=== PATIENT | male | born 1970 | race Caucasian/White ===

== ENCOUNTER 2023-10-05 08:26 | Outpatient (OUT) | payer OTHER, SELFPAY ==
[2023-10-05 09:14] LABS: Estimated Average Glucose 114 mg/dL; Glycohemoglobin A1C 5.6 % (4.5-6.2)
[2023-10-05 09:21] LABS: Basophils Absolute Auto 0.1 10^3/uL (0.0-0.1); Eosinophils Absolute Auto 0.2 10^3/uL (0.0-0.7); Eosinophils Percent Auto 2.8 % (0.9-7.0); Hematocrit 39.6 % (42.0-54.0); Hemoglobin 12.7 g/dL (14.0-18.0); Immature Granulocytes Abs Auto 0.02 10^3/uL (0.00-0.03); Immature Granulocytes Pct Auto 0.3 % (0.0-0.5); Lymphocytes Absolute Auto 2.4 10^3/uL (1.2-3.8); Lymphocytes Percent Auto 35.2 % (20.5-60.0); Mean Corpuscular HGB Conc 32.1 g/dL (29.9-35.2); Mean Corpuscular Volume 96.6 fL (80.0-94.0); Mean Platelet Volume 10.5 fL (9.5-13.5); Monocytes Absolute Auto 0.6 10^3/uL (0.3-0.8); Monocytes Percent Auto 9.1 % (1.7-12.0); Neutrophils Absolute Auto 3.5 10^3/uL (1.4-6.5); Neutrophils Percent Auto 51.6 % (43.0-75.0); Platelet Count 198 10^3/uL (150-450); Red Cell Distribution Width 13.5 % (11.0-15.0); White Blood Count 6.9 10^3/uL (4.0-11.0)
[2023-10-05 09:29] LABS: Alanine Aminotransferase 24 U/L (16-63); Albumin Globulin Ratio 1.2; Albumin Level 3.7 g/dL (3.4-5.0); Alkaline Phosphatase 76 U/L (46-116); Anion Gap 13.1; Aspartate Amino Transferase 15 U/L (15-37); BUN Creatinine Ratio 25.8; Bilirubin Total 0.6 mg/dL (0.2-1.0); Calcium 8.7 mg/dL (8.5-10.1); Carbon Dioxide 27.9 mmol/L (21.0-32.0); Chloride 108 mmol/L (98-107); Cholesterol 166 mg/dL (<=200); Estimated GFR (African America >60 (>=60); Estimated GFR (Non-African Ame >60 (>=60); Free T3 1.76 pg/mL (2.18-3.98); Glucose 87 mg/dL (74-106); HDL Cholesterol 56 mg/dL (40-60); LDL Cholesterol Calculated 96.2 mg/dL; Sodium 145 mmol/L (136-145); Thyroid Stimulating Hormone 1.559 uIU/mL (0.358-3.740); Total Protein 6.7 g/dL (6.4-8.2); Triglycerides 69 mg/dL (<=150); VLDL CHOLESTEROL 13.8 mg/dL
[2023-10-05 10:52] LABS: Prostate Specific Antigen Scrn 0.79 ng/mL (<=4.00)
== END 2023-10-05 08:27 | disposition home or self-care (01) ==
LOC: LAB 08:30
PROVIDERS: PCP Family Medicine; Visit Provider Family Medicine
DX: Z00.00 Encounter for general adult medical examination without abnormal findings (principal); Z12.5 Encounter for screening for malignant neoplasm of prostate; Z12.12 Encounter for screening for malignant neoplasm of rectum; R73.09 Other abnormal glucose
CPT/HCPCS: 36415; 80053; 80061; 83036; 84436; 84443; 84481; 85025; G0103

== ENCOUNTER 2023-10-06 13:05 | Outpatient (REF) | payer OTHER, SELFPAY ==
[2023-10-06 15:24] LABS: Occult Blood Negative
== END 2023-10-06 13:06 | disposition home or self-care (01) ==
LOC: LAB 13:05
PROVIDERS: PCP Family Medicine; Visit Provider Family Medicine
DX: Z00.00 Encounter for general adult medical examination without abnormal findings (principal); Z12.5 Encounter for screening for malignant neoplasm of prostate; Z12.12 Encounter for screening for malignant neoplasm of rectum
CPT/HCPCS: G0328

== ENCOUNTER 2023-11-12 10:08 | Outpatient (OUT) | payer OTHER, SELFPAY ==
--- OUTSIDE RECORDS SUMMARY | 2023-11-12 10:22 | XMS_ITS | CCD ---
Author Organization [facility] Care Team Providers Care Circulation Director Name Role Phone Trino Cadet Unavailable SHARON, DR THOMPSON Admitting Unavailable HOY, DR THOMPSON Attending Unavailable HOY, DR THOMPSON Consulting Unavailable HOY, DR HTOMPSON Primary Care Unavailable HOY, DR THOMPSON Admitting Unavailable HOY, DR THOMPSON Attending Unavailable HOY, DR THOMPSON Consulting Unavailable AMEENAY, DR THOMPSON Primary Care Unavailable HOY, DR THOMPSON Primary Care Unavailable HOY, DR THOMPSON Admitting Unavailable HOY, DR THOMPSON Attending Unavailable HOY, DR THOMPSON Consulting Unavailable HOY, DR THOMPSON Primary Care Unavailable NOEL, DR RHONDA Weathers Attending Unavailabl aparna COHEN, DR RHONDA Weathers Admitting Unavailabl e CHIQUITA ULLOA Consulting Unavailable TRISTA SUTHERLAND Consulting Unavailable MD Donna Herrera Primary Care Provider [phone] MD Trino Cadet Attending Provider Donna Herrera MD Primary Care Provider [phone] FITZ CARRASQUILLO Attending Unavailable AMEENAY, DONNA M Referring Unavailable HOY, DONNA M Primary Care Unavailable XU TROY Attending Unavailable HOY, DONNA M Referring Unavailable HOY, DONNA M Primary Care Unavailable XU TROY Attending Unavailable XU TROY Referring Unavailable HOY, DONNA M Primary Care Unavailable CHARLES LAMA Referring Unavailable HOY, DONNA M Primary Care Unavailable DARRELL OLSEN Admitting Unavailable DARRELL OLSEN Attending Unavailable HOY, DONNA M Primary Care Unavailable JIM COPELAND Consulting Unavailable HOY, DONNA M Primary Care Unavailable LAMA, CHARLES Referring Unavailable HOY, DONNA M Primary Care Unavailable DARRELL OLSEN Attending Unavailable DARRELL OLSEN Referring Unavailable HOY, DONNA M Primary Care Unavailable MARVA AGUAYO Referring Unavailable DONNA HERRERA Primary Care Unavailable CHARLES LAMA Referring Unavailable DONNA HERRERA Primary Care Unavailable DARRELL OLSEN Referring Unavailable DONNA HERRERA M Primary Care Unavailable MD Donna Herrera Primary Care Provider [phone] MD Qasim Mancilla Admit Provider MD Qasim Mancilla Attending Provider [phone] CORNELL Quinones Other Provider Unavailable CORNELL Givens Other Provider Unavailable CORNELL Kraft Other Provider Unavailable CORNELL Mcintosh Other Provider Unavailable CORNELL Giron Other Provider Unavailable CORNLEL Hatfield Other Provider Unavailable CORNELL Bunn Other Provider Unavailable MD Lena Tejeda Other Provider MD Virgilio Ley Other Provider Unavailable Angelicas, INSURANCE ACCOUNT REPRESENTATIVE Kathy Blanchard Other Provider DO Michelle Echols Other Provider [phone] MD Oswaldo Washington Other Provider [phone] DO Bhavik Hull Other Provider MD Prosper Fry Other Provider MD Evelyn Medina Other Provider MD Marcell Green Other Provider Unavailable PIPO Lentz Other Provider MD Mary Bowen Other Provider MD Tavon Zarco Other Provider MD Jorge Lopez Other Provider MD Sanjana Cortes Other Provider DO Michel Fuchs Other Provider MD Emil Magana Other Provider MD Tong Varma Other Provider BILLY Feldman Other Provider PIPO Houser M Other Provider Unavailable MD Rajat Silvestre Other Provider MD John Krishna Other Provider MD Tod Curry Other Provider MD Maximus Arce Other Provider Unavailable MD Tha Otto Other Provider DO Swathi Jones Other Provider DO Ricky Guzman Other Provider DO Juan C Santiago Other Provider PIPO Franco Other Provider DO Vito Azar Other Provider [phone] MD Khloe Silva M Other Provider [phone] PIPO Ruff Other Provider PIPO Barba Other Provider MD Janessa Negrete Other Provider MD Avi Khan Other Provider [phone] DO Los Constantino Other Provider [phone] DO Keaton Reyes Other Provider MD Antoinette Adam P Other Provider CORNELL Bauer Other Provider Unavailable DARRELL OLSEN Attending Unavailable HOY, DONNA M Referring Unavailable HOY, DONNA M Primary Care Unavailable XU TROY Referring Unavailable HOY, DONNA M Primary Care Unavailable CHARLES LAMA Attending Unavailable HOY, DONNA M Referring Unavailable HOY, DONNA M Primary Care Unavailable CHARLES LAMA Attending Unavailable Qasim Mancilla Admitting Unavaila Qasim Ochoa Attending Unavaila ble Hoy, Donna M Primary Care Unavailable Yasmeen Quinones Consulting Unavailable Flores Givens Consulting Unavailable Ariela Kraft Consulting Unavailable Alyce Mcintosh Consulting Unavailable Berkley Giron Consulting Unavailable Jennifer Hatfield Consulting Unavailable Perla Bunn Consulting Unavailable Lena Tejeda Consulting Unavailable JilVirgilio interiano Consulting Unavailable Kathy Loya Consulting Unavailable Michelle Echols Consulting Unavailable Oswaldo Washington Consulting Unavailable Bhavik Hull Consulting UnavailProsper Tejada Consulting Unavailable Evelyn Medina Consulting Unavailable Marcell Green Consulting Unavailable Kathe Lentz Consulting UnavailMary Pinzon Consulting Unavailable Tavon Zarco Consulting Unavailable Jorge Lopez Consulting Unavailable Sanjana Cortes Consulting Unavailable Michel Fuchs Consulting Unavailable Emil Magana Consulting Unavailable Tong Varma Consulting Unavailable Rhiannon Feldman Consulting Unavailable Avelina Houser Consulting Unavailable Rajat Silvestre Consulting UnavailJohn Barker Consulting Unavailable Tod Curry Consulting Unavailable Maximus Arce Consulting Unavailable Tha Otto Consulting Unavailable Swathi Jones Consulting Unavailable Ricky Guzman Consulting Unavailable Juan C Santiago Consulting Unavailable ObGina justice Consulting Unavailable Vito Azar Consulting Unavailable DaromarCharlesaymichelle Blanchard Consulting Unavailable Sabi Ruff Consulting Unavailable Adilene Barba Consulting Unavailable Janessa Negrete Consulting Unavailable Avi Khan Consulting Unavailable Los Constantino Consulting Unavailable Keaton Reyes Consulting Unavailable Adam Curry Consulting Unavailable Alisa Bauer Consulting Unavailable Trino Cadet Admitting Unavailable Trino Cadet Attending Unavailable Donna Herrera Primary Care Unavailable Michel ROBBINS Attending Unavailable Donna Herrera Referring Unavailable Allergies Allergy Classification Reported Allergen(s) Allergy Type Date of Onset Reaction(s) Facility (1 source) No Known Medication Allergies; Translations: [No Known Medication Allergies] Propensity to adverse reactions (disorder) [facility] Repository Medications Current Medications Medication Drug Class(es) Dates Sig (Normalized) Sig (Original) [id number] 200 actuat albuterol 0.09 mg/actuat metered dose inhaler (4 sources) beta2-Adrenergic Agonist Start: 10-29-2023 take 1 puff(s) by inhalation every four hours Albuterol Sulfate (Ventolin Hfa) 90 mcg/actuation Hfa Aerosol Inhaler Active 2 PUFF INHALATION Every 4 hours 6.7 October 29, 2023 12:00am Start: 10-27-2023 End: 10-29-2023 Albuterol Sulfate (Proair Hf a) 90 mcg/actuation HFA aerosol inhaler Discontinued 2 INH INHALATION Every 4 hours October 27, 2023 12:00am October 29, 2023 9:45am Start: 10-04-2023 take 2 puff(s) by in halation every four hours as needed VENTOLIN HFA 90 mcg/actuation inhaler Inhale 2 puffs every 4 (four) hours as needed. 0 10/04/2023 Active aspirin 81 mg delayed release oral tablet (13 sources) Platelet Aggregation Inhibitor, Nonsteroidal Anti-inflammatory Drug Start: 05-22-2020 End: 10-29-2023 take 81 mg by mouth once daily at bedtime Aspirin Active 81 MG PO Daily at bedtime 30 October 29, 2023 12:00am take 1 tablet by mouth once trell y Aspirin 81 81 MG 1 tablet Orally Once a day Active take 1 tablet by mouth once trell y Aspirin 81 81 MG 1 tablet Orally Once a day Active 120 actuat budesonide 0.16 mg/actuat / formoterol fumarate 0.0045 mg/actuat metered dose inhaler (13 sources) Corticosteroid, beta2-Adrenergic Agonist Start: 10-29-2023 take 1 puff(s) by inhalation twice daily Budesonide-Formoterol (Symbicort) 160-4.5 mcg/actuation Hfa Aerosol Inhaler Active 2 PUFF INHALATION Twice daily 10.2 October 29, 2023 12:00am Start: 05-22-2020 End: 10-29-2023 Budesonide-Formoterol (Symbi skyler) 160-4.5 mcg/actuation Hfa Aerosol Inhaler Discontinued 2 INH INHALATION Twice daily May 22, 2020 12:00am October 29, 2023 9:45am Start: 04-19-2019 take 2 puff(s) by in halation in the morning SYMBICORT 160-4.5 mcg/actuation inhaler Inhale 2 puffs in the morning and 2 puffs before bedtime. 1 04/19/2019 Active take 2 puff(s) by mo uth twice daily Symbicort 160-4.5 MCG/ACT INHALE 2 PUFFS BY MOUTH TWICE DAILY Inhalation for 30 Active cyclobenzaprine hydrochloride 5 mg oral tablet (4 sources) Muscle Relaxant Start: 10-29-2023 take 5 mg by mouth three times daily Cyclobenzaprine Active 5 MG PO Three times daily 30 October 29, 2023 12:00am Start: 10-27-2023 End: 10-29-2023 take 5 mg by mouth three times daily Cyclobenzaprine Discontinued 5 MG PO Three times daily October 27, 2023 12:00am October 29, 2023 9:45am Start: 05-31-2020 End: 10-27-2023 take 10 mg by mouth three times daily Cyclobenzaprine Discontinued 10 MG PO Three times daily May 31, 2020 12:00am October 27, 2023 3:03pm dexamethasone 2 mg oral tablet (2 sources) Corticosteroid Start: 10-29-2023 take 2 mg by mouth twice daily Dexamethasone Active 2 MG PO Q8H October 29, 2023 12:00am TAPER: 2 mg every 8 hours for 5 Days; 2 mg twice daily for 5 Days Start: 10-27-2023 End: 10-29-2023 take 2 mg by mouth every eight hours Dexamethasone Discontinued 2 MG PO Every 8 hours October 27, 2023 12:00am October 29, 2023 9:45am diazePAM 2 mg oral tablet (13 sources) Benzodiazepine Start: 10-27-2023 take 2 mg by mouth every six hours Diazepam Active 2 MG PO Every 6 hours October 27, 2023 12:00am Start: 05-22-2020 End: 06-01-2020 take 2 mg by mouth once daily Diazepam Discontinued 2 MG PO Daily May 22, 2020 12:00am June 01, 2020 10:18am take 1 tablet by eleni th every six hours as needed for anxiety diazePAM (VALIUM) 2 mg tablet Take 1 tablet (2 mg total) by mouth every 6 (six) hours as needed for anxiety. 0 Active diazePAM 2.5 MG as directed Rectal Active diclofenac sodium 75 mg delayed release oral tablet (13 sources) Nonsteroidal Anti-inflammatory Drug Start: 03-02-2023 End: 09-16-2023 take 1 tablet by mouth in the morning, then take 1 tablet by mouth at bedtime diclofenac (VOLTAREN) 75 mg EC tablet Indications: Disorder of sacrum Take 1 tablet (75 mg total) by mouth in the morning and 1 tablet (75 mg total) before bedtime. 60 tablet 5 09/16/2023 Active Start: 05-22-2020 End: 06-01-2020 take 75 mg by mouth twice daily Diclofenac Sodium Discontinued 75 MG PO Twice daily May 22, 2020 12:00am June 01, 2020 10:18am famotidine 20 mg oral tablet (2 sources) Histamine-2 Receptor Antagonist Start: 10-27-2023 End: 10-29-2023 take 20 mg by mouth twice daily Famotidine Active 20 MG PO Twice daily 60 October 29, 2023 12:00am FLUoxetine 20 mg oral capsule (13 sources) Serotonin Reuptake Inhibitor Start: 10-29-2023 take 40 mg by mouth once daily in the morning Fluoxetine Active 40 MG PO Every morning 60 October 29, 2023 12:00am Start: 05-22-2020 End: 10-29-2023 take 40 mg by mouth once daily in the morning Fluoxetine Discontinued 40 MG PO Every morning May 22, 2020 12:00am October 29, 2023 9:45am gabapentin 800 mg oral tablet (10 sources) Anti-epileptic Agent Start: 10-27-2023 take 800 mg by mouth three times daily Gabapentin Active 800 MG PO Three times daily October 27, 2023 12:00am Start: 08-03-2023 take 1 tablet by eleni th three times daily gabapentin (NEURONTIN) 800 mg tablet Indications: Lumbosacral spondylosis without myelopathy Take 1 tablet (800 mg total) by mouth 3 (three) times a day. 90 tablet 1 08/03/2023 Active Start: 05-22-2020 End: 10-27-2023 take 600 mg by mouth three times daily Gabapentin Discontinued 600 MG PO Three times daily 90 June 01, 2020 12:00am October 27, 2023 2:56pm levothyroxine sodium 0.025 mg oral tablet (2 sources) l-Thyroxine take 1 tablet by mouth in the morning levothyroxine (SYNTHROID, LEVOTHROID) 25 MCG tablet Indications: hypothyroidism Take 1 tablet (25 mcg total) by mouth in the morning. Indications: a condition with low thyroid hormone levels. 0 Active liothyronine sodium 0.005 mg oral tablet (2 sources) l-Triiodothyronine Start: 10-27-19 End: 10-29-19 take 1 tablet by mouth once daily Liothyronine (Cytomel) 5 mcg Tablet Active 5 MCG PO Daily 30 30 October 29, 2023 12:00am loratadine 10 mg oral tablet (1 source) Start: 10-29-19 take 10 mg by mouth once daily Loratadine Active 10 MG PO Daily 0 October 29, 2023 12:00am multivitamin capsule (6 sources) take 1 capsule by mouth in the morning multivitamin capsule Take 1 capsule by mouth in the morning. 0 Active Multivitamin preparation (2 sources) Start: 05-22-20 take 1 tablet by mouth once daily Multivitamin Active 1 TAB PO every day at noon May 22, 2020 12:00am Naloxone (1 source) Opioid Antagonist Start: 10-27-19 Naloxone Active 1 SPRAY INTRANASAL Q3M October 27, 2023 12:00am oxyCODONE hydrochloride 5 mg oral capsule (3 sources) Opioid Agonist Start: 10-27-19 take 5 mg by mouth every four hours Oxycodone Active 5 MG PO Every 4 hours October 27, 2023 12:00am Start: 05-31-2020 End: 10-27-2023 take 5-10 mg by mouth every six hours Oxycodone Discontinued 5 - 10 MG PO Q6H 60 8 May 31, 2020 October 27, 2023 3:03pm Completed/Discontinued Medications Medication Drug Class(es) Dates Sig (Normalized) Sig (Original) baclofen 10 mg oral tablet (5 sources) gamma-Aminobutyri c Acid-ergic Agonist End: 10-08-2023 take 1 tablet by mouth three times daily baclofen (LIORESAL) 10 mg tablet Take 1 tablet (10 mg total) by mouth 3 (three) times a day. 0 10/08/2023 Discontinued (Therapy completed) cetirizine hydrochloride 10 mg oral tablet (12 sources) Histamine-1 Receptor Antagonist Start: 05-22-2020 End: 10-29-2023 take 10 mg by mouth once daily Cetirizine Discontinued 10 MG PO Daily May 22, 2020 12:00am October 29, 2023 9:45am cetirizine (ZyrT EC) 10 MG chewable tablet Chew 1 tablet (10 mg total) and swallow in the morning. 0 Active take 2 tablets by mo uth every twenty-four hours Cetirizine HCl 10 MG 2 tablets Orally On ce a day Active morphine sulfate 15 mg extended release oral tablet (2 sources) Opioid Agonist Start: 05-31-2020 End: 10-27-2023 take 1 tablet by mouth every twelve hours Morphine (Ms Contin) 15 mg tablet extended release Discontinued 15 MG PO Q12H 20 May 31, 2020 October 27, 2023 2:56pm take w/enough water to swallow whole; do not crush/dissolve/chew/cut/break Prednisone (2 sources) Start: 05-31-2020 End: 10-27-2023 Prednisone Discontinued 1 do se pk PO per package directions May 31, 2020 12:00am October 27, 2023 2:57pm take 4 tabs for 3 days then take 3 tabs for 3 days then take 2 tabs for 3 days then take 1 tab for 3 days Start: 05-31-2020 Prednisone Act devyn 1 dose pk PO per package directions May 31, 2020 12:00am take 4 tabs for 3 days then take 3 tabs for 3 days then take 2 tabs for 3 days then take 1 tab for 3 days Problems Active Problems Problem Classification Problem Date Documented Date Episodic/Chronic Administrative/socia l admission (3 sources) Other reduced mobility; Translations: [Impaired mobility and activities of daily living] Onset: 10-27-2023 10-28-2023 Episodic Anxiety disorders (3 sources) Mixed anxiety and depressive disorder; Translations: [Other specified anxiety disorders] Onset: 10-27-2023 10-29-2023 Chronic Asthma (3 sources) Asthma; Translations: [Unspecified asthma, uncomplicated] Onset: 10-27-2023 10-29-2023 Chronic Fracture of lower limb (8 sources) Closed fracture of lateral malleolus; Translations: [Nondisplaced fracture of lateral malleolus of left fibula, initial encounter for closed fracture] Episodic Other acquired deformities (4 sources) Spondylolisthesis L5/S1 level; Translations: [Spondylolisthesis, lumbosacral region] Episodic Other acquired deformities (4 sources) Lumbar spondylolisthesis; Translations: [Spondylolisthesis, lumbar region] Episodic Other acquired deformities (4 sources) Spondylolisthesis; Translations: [Spondylolisthesis, lumbar region] Episodic Other acquired deformities (2 sources) Spondylolisthesis, lumbar region Episodic Other connective tissue disease (4 sources) Rotator cuff syndrome; Translations: [Unspecified rotator cuff tear or rupture of left shoulder, not specified as traumatic] Episodic Other connective tissue disease (5 sources) History of lumbar fusion; Translations: [Arthrodesis status] 09-02-2023 Episodic Other connective tissue disease (7 sources) Arthrodesis status; Translations: [Arthrodesis status] Onset: 09-02-2023 Episodic Other nervous system disorders (4 sources) Chronic pain; Translations: [Other chronic pain] Chronic Other nervous system disorders (3 sources) Other chronic pain; Translations: [Other chronic pain] Onset: 08-05-2021 Resolved: 08-05-2021 Chronic Other nervous system disorders (3 sources) Other acute postprocedural pain; Translations: [Other acute postoperative pain] Onset: 10-25-2023 10-29-2023 Episodic Other nervous system disorders (1 source) Postoperative pain ; Translations: [Other acute postprocedural pain] 10-28-2023 Episodic Other non-traumatic joint disorders (4 sources) Shoulder pain; Translations: [Pain in left shoulder] Episodic Other non-traumatic joint disorders (4 sources) Acute ankle pain; Translations: [Pain in left ankle and joints of left foot] Episodic Other screening for suspected conditions (not mental disorders or infectious disease) (1 source) Encounter for screening for malignant neoplasm of prostate; Translations: [ENC SCREEN MALIG NEOPLASM PROSTATE] Onset: 09-08-2022 Episodic Residual codes; unclassified (4 sources) History of arthroscopic procedure on shoulder; Translations: [Other specified postprocedural states] Episodic Residual codes; unclassified (1 source) Other specified health status; Translations: [Other specified health status] Onset: 10-27-2023 Episodic Spondylosis; intervertebral disc disorders; other back problems (17 sources) Degeneration of lumbar intervertebral disc; Translations: [Other intervertebral disc degeneration, lumbar region] Onset: 08-04-2018 Resolved: 08-05-2021 Chronic Spondylosis; intervertebral disc disorders; other back problems (20 sources) Spinal stenosis of lumbar region; Translations: [Spinal stenosis, lumbar region without neurogenic claudication] Onset: 01-24-2018 Resolved: 08-05-2021 Episodic Sprains and strains (4 sources) Glenoid labrum tear; Translations: [Superior glenoid labrum lesion of left shoulder, initial encounter] Episodic Thyroid disorders (3 sources) Hypothyroidism; Translations: [Hypothyroidism, unspecified] Onset: 10-27-2023 10-29-2023 Chronic Unclassified (3 sources) CONTACT W/AND (SUSP) EXPOS COVID-19; Translations: [CONTACT W/AND (SUSP) EXPOS COVID-19] Onset: 02-05-2022 Unclassified (1 source) Low back pain, unspecified; Translations: [Low back pain, unspecified] Onset: 08-18-2023 Unclassified (1 source) Spinal stenosis of lumbar region with neurogenic claudication [M48.062] Onset: 10-22-2023 Unclassified (1 source) Post-op Onset: 11-04-2023 Unclassified (1 source) Consult Onset: 09-02-2023 Unclassified (1 source) Spinal stenosis, lumbar region with neurogenic claudication; Translations: [Spinal stenosis, lumbar region with neurogenic claudication] Onset: 05-24-2023 Past or Other Problems Problem Classification Problem Date Documented Da te Episodic/Chronic Nausea and vomiting (1 source) Nausea with vomiting, unspecified; Translations: [NAUSEA WITH VOMITING UNSPECIFIED] Onset: 02-05-2022 Episodic Other aftercare (1 source) 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; Translations: [TOBACCO FEEDER CATCHER CURRENT USE OF ASPIRIN] Onset: 02-05-2022 Episodic Other aftercare (1 source) Other tire molder (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) drug therapy; Translations: [OTH MCC CURRENT DRUG THERAPY] Onset: 02-05-2022 Episodic Other gastrointestinal disorders (1 source) Diarrhea, unspecified; Translations: [DIARRHEA UNSPECIFIED] Onset: 02-05-2022 Episodic Other non-traumatic joint disorders (6 sources) Hip pain; Translations: [Pain in unspecified hip] Onset: 02-20-2021 03-12-2022 Episodic Unclassified (1 source) Low back pain, unspecified M54.50 Onset: 08-05-2021 Resolved: 08-05-2021 Unclassified (1 source) CONTACT W/AND (SUSP) EXPOS COVID-19; Translations: [CONTACT W/AND (SUSP) EXPOS COVID-19] Onset: 02-03-2022 Results Test Name Value Interpretation Reference Range Facility Alanine aminotransferase [En zymatic activity/volume] in Serum or PlasmaOrdered By: Qasim Mancilla on 10-28-2023 ALT [Catalytic activity/Vol] 7 U/L 7-52 [facility] Albumin [Mass/volume] in Ser um or Plasma by Bromocresol green (BCG) dye binding methoOrdered By: Qasim Mancilla on 10-28-2023 Albumin BCG dye [Mass/Vol] 3.9 g/dL 3.5-5.7 [facility] Alkaline phosphatase [Enzyma tic activity/volume] in Serum or PlasmaOrdered By: Qasim Mancilla on 10-28-2023 ALP [Catalytic activity/Vol] 57 U/L 34-104 [facility] Aspartate aminotransferase [ Enzymatic activity/volume] in Serum or PlasmaOrdered By: Qasim Mancilla on 10-28-2023 AST [Catalytic activity/Vol] 7 U/L 13-39 [facility] Basophils Auto (Bld) [#/Vol] Ordered By: Qasim Mancilla on 10-28-2023 Basophils (Bld) [#/Vol] 0.0 10*3/uL 0.0-0.2 [facility] Basophils/100 WBC Auto (Bld) Ordered By: Qasim Mancilla on 10-28-2023 Basophils/100 WBC (Bld) 0.3 % . [facility] Bilirubin.total [Mass/volume ] in Serum or PlasmaOrdered By: Qasim Mancilla on 10-28-2023 Bilirubin [Mass/Vol] 0.5 mg/dL 0.3-1.0 [facility] Calcium [Mass/volume] in Ser um or PlasmaOrdered By: Qasim Mancilla on 10-28-2023 Calcium [Mass/Vol] 8.8 mg/dL 8.6-10.3 [facility] Carbon dioxide, total [Moles /volume] in Serum or PlasmaOrdered By: Qasim Mancilla on 10-28-2023 CO2 [Moles/Vol] 27.8 mmol/L 21.0-31.0 [facility] Chloride [Moles/volume] in S felicita or PlasmaOrdered By: Qasim Mancilla on 10-28-2023 Chloride [Moles/Vol] 106 mmol/L 98-107 [facility] Complete Blood Count Auto Di ffon 10-28-2023 Basophils (Bld) [#/Vol] 0.0 10*3/uL Normal 0.0-0.2 [facility] Comment on above: Result Comment: PERF ORMED BY: [place] [address] PATHOLOGIST HANDMADE TILE ARTIST MARK ARIAS M.D. Performed By: #### C BC, CMP, PAB #### [facility] [address] [place] [address] [place] Basophils/100 WBC (Bld) 0.3 % Normal . F [facility] Comment on above: Performed By: #### C BC, CMP, PAB #### [facility] [address] [place] [address] [place] Eosinophils (Bld) [#/Vol] 0.0 10*3/uL Normal 0.0-0.45 [facility] Comment on above: Performed By: #### C BC, CMP, PAB #### [facility] [address] [place] [address] [place] Eosinophils/100 WBC (Bld) 0.4 % Normal . [facility] Comment on above: Performed By: #### C BC, CMP, PAB #### [facility] [address] [place] [address] [place] Erythrocyte distribution width (RBC) [Ratio] 13.4 % Normal 12.0-14.8 [facility] Comment on above: Performed By: #### C BC, CMP, PAB #### [facility] [address] [place] [address] [place] Hematocrit (Bld) [Volume fraction] 38.3 % Low 38.8-50.0 [facility] Comment on above: Performed By: #### C BC, CMP, PAB #### [facility] [address] [place] [address] [place] Hemoglobin (Bld) [Mass/Vol] 12.7 g/dL Low 13.0-17.0 [facility] Comment on above: Performed By: #### C BC, CMP, PAB #### [facility] [address] Lymphocytes (Bld) [#/Vol] 2.1 10*3/uL Normal 1.00-4.8 [facility] Comment on above: Performed By: #### C BC, CMP, PAB #### [facility] [address] Lymphocytes/100 WBC (Bld) 28.7 % Normal . [facility] Comment on above: Performed By: #### C BC, CMP, PAB #### [facility] [address] MCH (RBC) [Entitic mass] 30.9 pg Normal 27.5-35.2 [facility] Comment on above: Performed By: #### C BC, CMP, PAB #### [facility] [address] MCV (RBC) [Entitic vol] 93.0 fL Normal 83.5-101 [facility] Comment on above: Performed By: #### C BC, CMP, PAB #### [facility] [facility] [address] Mean Corpuscular HGB Conc 33.3 g/dL Normal 32.5-35.6 [facility] Comment on above: Performed By: #### C BC, CMP, PAB #### [facility] [address] [place] [address] [place] Monocytes (Bld) [#/Vol] 0.7 10*3/uL Normal 0.0-0.8 [facility] Comment on above: Performed By: #### C BC, CMP, PAB #### [facility] [address] [place] [address] [place] Monocytes/100 WBC (Bld) 9.6 % Normal . [facility] Comment on above: Performed By: #### C BC, CMP, PAB #### [facility] [address] [place] [address] [place] Neutrophils (Bld) [#/Vol] 4.5 10*3/uL Normal 1.8-7.7 [facility] Comment on above: Performed By: #### C BC, CMP, PAB #### [address] Neutrophils/100 WBC (Bld) 61.0 % Normal . [facility] Comment on above: Performed By: #### C BC, CMP, PAB #### [address] NRBC% 0.1 /100{WBC} Normal 0-0.5 [facility] Comment on above: Performed By: #### C BC, CMP, PAB #### [address] Platelet mean volume (Bld) [Entitic vol] 8.7 fL Normal 6.6-10.1 [facility] Comment on above: Performed By: #### C BC, CMP, PAB #### [address] Platelets (Bld) [#/Vol] 227 10*3/uL Normal 150-450 [facility] Comment on above: Performed By: #### C BC, CMP, PAB #### [address] RBC (Bld) [#/Vol] 4.12 10*6/uL Normal 3.90-5.60 [facility] Comment on above: Performed By: #### C BC, CMP, PAB #### [address] WBC (Bld) [#/Vol] 7.4 10*3/uL Normal 4.1-10.5 [facility] Comment on above: Performed By: #### C BC, CMP, PAB #### [address] Comprehensive Metabolic Pane brent 10-28-2023 Albumin [Mass/Vol] 3.9 g/dL Normal 3.5-5.7 [facility] Comment on above: Performed By: #### C BC, CMP, PAB #### [facility] [address] [place] [address] [place] Albumin/Globulin [Mass ratio] 1.7 {ratio} Normal [facility] Comment on above: Performed By: #### C BC, CMP, PAB #### [facility] [address] [place] [id number] [facility] ALP [Catalytic activity/Vol] 57 U/L Normal 34-104 [facility] Comment on above: Performed By: #### C BC, CMP, PAB #### [facility] [address] ALT [Catalytic activity/Vol] 7 U/L Normal 7-52 [facility] Comment on above: Performed By: #### C BC, CMP, PAB #### [facility] [address] Anion gap [Moles/Vol] 11.6 mmol/L Normal 6.0-15.0 [facility] Comment on above: Performed By: #### C BC, CMP, PAB #### [facility] [address] [place] [address] [place] AST [Catalytic activity/Vol] 7 U/L Low 13-39 [facility] Comment on above: Performed By: #### C BC, CMP, PAB #### [facility] [address] Bilirubin [Mass/Vol] 0.5 mg/dL Normal 0.3-1.0 [facility] Comment on above: Performed By: #### C BC, CMP, PAB #### [facility] [address] [place] [id number] [place] Calcium [Mass/Vol] 8.8 mg/dL Normal 8.6-10.3 [facility] Comment on above: Performed By: #### C BC, CMP, PAB #### [facility] [address] [place] [address] [place] Chloride [Moles/Vol] 106 mmol/L Normal 98-107 [facility] Comment on above: Performed By: #### C BC, CMP, PAB #### [facility] [address] CO2 [Moles/Vol] 27.8 mmol/L Normal 21.0-31.0 [facility] Comment on above: Performed By: #### C HALINA GILBERT, PAB #### [facility] [address] Creatinine [Mass/Vol] 0.89 mg/dL Normal 0.70-1.30 [facility] Comment on above: Performed By: #### C HALINA GILBERT, PAB #### [place] [address] [place] Creatinine Clr Calc Pharmacy 103.39 [facility] Comment on above: Performed By: #### C HALINA GILBERT, PAB #### [place] [address] [place] GFR/1.73 sq M.predicted MDRD (S/P/Bld) [Vol rate/Area] mL/min/{1.73_m2} [facility] Comment on above: Performed By: #### C HALINA GILBERT, PAB #### [address] Globulin (S) [Mass/Vol] 2.3 g/dL Normal [facility] Comment on above: Performed By: #### C HALINA GILBERT, PAB #### [address] Glucose [Mass/Vol] 109 mg/dL High 70-100 [facility] Comment on above: Result Comment: [place] Glucose Reference Range is dependent on time and content of last meal. Glucose of more than 200 mg/dL in a nonstressed, ambulatory subject supports the diagnosis of Diabetes Mellitus. ADA recommended reference range Performed By: #### C HALINA GILBERT, PAB #### [address] Potassium [Moles/Vol] 4.4 mmol/L Normal 3.5-5.1 [facility] Comment on above: Performed By: #### C HALINA GILBERT, PAB #### [place] [address] [place] Protein [Mass/Vol] 6.2 g/dL Low 6.4-8.9 [facility] Comment on above: Performed By: #### C VLADIMIR, HALINA, PAB #### [facility] [address] [place] [address] [place] Sodium [Moles/Vol] 141 mmol/L Normal 136-145 [facility] Comment on above: Performed By: #### C VLADIMIR, HALINA, PAB #### [facility] [address] [place] [address] [place] Urea nitrogen [Mass/Vol] 26 mg/dL High 7-25 [facility] Comment on above: Performed By: #### C HALINA GILBERT, PAB #### [facility] [address] Creatinine [Mass/volume] in Serum or PlasmaOrdered By: Qasim Mancilla on 10-28-2023 Creatinine [Mass/Vol] 0.89 mg/dL 0.70-1.30 [facility] Eosinophils Auto (Bld) [#/Vo l]Ordered By: Qasim Mancilla on 10-28-2023 Eosinophils (Bld) [#/Vol] 0.0 10*3/uL 0.0-0.45 [facility] Eosinophils/100 WBC Auto (Bl d)Ordered By: Qasim Mancilla on 10-28-2023 Eosinophils/100 WBC (Bld) 0.4 % . [facility] Erythrocyte distribution wid th Auto (RBC) [Ratio]Ordered By: Qasim Mancilla on 10-28-2023 Erythrocyte distribution width (RBC) [Ratio] 13.4 % 12.0-14.8 [facility] Globulin Calc (S) [Mass/Vol] Ordered By: Qasim Mancilla on 10-28-2023 Globulin (S) [Mass/Vol] 2.3 g/dL F [facility] Glucose [Mass/volume] in Ser um or PlasmaOrdered By: Qasim Mancilla on 10-28-2023 Glucose [Mass/Vol] 109 mg/dL 70-100 [facility] Comment on above: ADA recommended refe rence rangeRandom Glucose Reference Range is dependent on time and content of last meal. Glucose of more than 200 mg/dL in a nonstressed, ambulatory subject supports the diagnosis of Diabetes Mellitus. Hematocrit Auto (Bld) [Volum e fraction]Ordered By: Qasim Mancilla on 10-28-2023 Hematocrit (Bld) [Volume fraction] 38.3 % 38.8-50.0 [facility] Hemoglobin [Mass/volume] in BloodOrdered By: Qasim Mancilla on 10-28-2023 Hemoglobin (Bld) [Mass/Vol] 12.7 g/dL 13.0-17.0 [facility] Leukocytes [#/volume] correc deon for nucleated erythrocytes in Blood by Automated counOrdered By: Qasim Mancilla on 10-28-2023 WBC corrected for nucl RBC Auto (Bld) [#/Vol] 7.4 10*3/uL 4.1-10.5 [facility] Lymphocytes Auto (Bld) [#/Vo l]Ordered By: Qasim Mancilla on 10-28-2023 Lymphocytes (Bld) [#/Vol] 2.1 10*3/uL 1.00-4.8 [facility] Lymphocytes/100 WBC Auto (Bl d)Ordered By: Qasim Mancilla on 10-28-2023 Lymphocytes/100 WBC (Bld) 28.7 % . [facility] MCH Auto (RBC) [Entitic mass ]Ordered By: Qasim Mancilla on 10-28-2023 MCH (RBC) [Entitic mass] 30.9 pg 27.5-35.2 [facility] MCHC Auto (RBC) [Mass/Vol]Or dered By: Qasim Mancilla on 10-28-2023 MCHC (RBC) [Mass/Vol] 33.3 g/dL 32.5-35.6 [facility] MCV Auto (RBC) [Entitic vol] Ordered By: Qasim Mancilla on 10-28-2023 MCV (RBC) [Entitic vol] 93.0 fL 83.5-101 F [facility] Monocytes Auto (Bld) [#/Vol] Ordered By: Qasim Mancilla on 10-28-2023 Monocytes (Bld) [#/Vol] 0.7 10*3/uL 0.0-0.8 [facility] Monocytes/100 WBC Auto (Bld) Ordered By: Qasim Mancilla on 10-28-2023 Monocytes/100 WBC (Bld) 9.6 % . F [facility] Neutrophils Auto (Bld) [#/Vo l]Ordered By: Qasim Mancilla on 10-28-2023 Neutrophils (Bld) [#/Vol] 4.5 10*3/uL 1.8-7.7 [facility] Neutrophils/100 WBC Auto (Bl d)Ordered By: Qasim Mancilla on 10-28-2023 Neutrophils/100 WBC (Bld) 61.0 % . [facility] No Panel InformationOrdered By: Qasim Mancilla on 10-28-2023 Estimated GFR (CKD-EPI) > 60.0 mL/Min [facility] Creatinine Clearance (Chem 103.39 [facility] Nucleated erythrocytes [Pres ence] in Blood by Automated countOrdered By: Qasim Mancilla on 10-28-2023 Nucleated RBC Auto Ql (Bld) 0.1 /100{WBC} 0-0.5 [facility] Platelet mean volume Auto (B ld) [Entitic vol]Ordered By: Qasim Mancilla on 10-28-2023 Platelet mean volume (Bld) [Entitic vol] 8.7 fL 6.6-10.1 [facility] Platelets Auto (Bld) [#/Vol] Ordered By: Qasim Mancilla on 10-28-2023 Platelets (Bld) [#/Vol] 227 10*3/uL 150-450 [facility] Potassium [Moles/volume] in Serum or PlasmaOrdered By: Qasim Mancilla on 10-28-2023 Potassium [Moles/Vol] 4.4 mmol/L 3.5-5.1 [facility] Prealbuminon 10-28-2023 Prealbumin [Mass/Vol] 25.1 mg/dL Normal 17.0-34.0 [facility] Comment on above: Result Comment: PERF ORMED BY: [facility] [address] [place] [address] PATHOLOGIST [employer] TILE ARTIST MARK ARIAS M.D. Performed By: #### C BC, CMP, PAB #### [facility] [address] Prealbumin [Mass/volume] in Serum or PlasmaOrdered By: Qasim Mancilla on 10-28-2023 Prealbumin [Mass/Vol] 25.1 mg/dL 17.0-34.0 [facility] Protein [Mass/volume] in Ser um or PlasmaOrdered By: Qasim Mancilla on 10-28-2023 Protein [Mass/Vol] 6.2 g/dL 6.4-8.9 [facility] RBC Auto (Bld) [#/Vol]Ordere d By: Qasim Mancilla on 10-28-2023 RBC (Bld) [#/Vol] 4.12 10*6/uL 3.90-5.60 [facility] Serum or plasma albumin/glob ulin mass ratioOrdered By: Qasim Mancilla on 10-28-2023 Albumin/Globulin [Mass ratio] 1.7 {ratio} [facility] Serum or plasma anion gap de terminationOrdered By: Qasim Mancilla on 10-28-2023 Anion gap [Moles/Vol] 11.6 mmol/L 6.0-15.0 [facility] Sodium [Moles/volume] in Ser um or PlasmaOrdered By: Qasim Mancilla on 10-28-2023 Sodium [Moles/Vol] 141 mmol/L 136-145 [facility] Urea nitrogen [Mass/volume] in Serum or PlasmaOrdered By: Qasim Mancilla on 10-28-2023 Urea nitrogen [Mass/Vol] 26 mg/dL 7-25 [facility] WBC Auto (Bld) [#/Vol]Ordere d By: Qasim Mancilla on 10-28-2023 WBC (Bld) [#/Vol] 7.4 10*3/uL 4.1-10.5 [facility] BASIC METABOLIC PANLon 10-24 Anion gap [Moles/Vol] 9 mmol/L Normal 5-15 [facility] Comment on above: Performed By: #### H H, BMP ####[facility] ([id number])[address], [place] [address] Calcium [Mass/Vol] 9.1 mg/dL Normal 8.5-10.5 [facility] Comment on above: Performed By: #### H H, BMP ####[facility] ([id number])[address] [place] [address] Chloride [Moles/Vol] 104 mmol/L Normal 98-109 [facility] Comment on above: Performed By: #### H H, BMP ####[facility] ([id number])[address] [place] [address] CO2 [Moles/Vol] 28 mmol/L Normal 22-32 [facility] Comment on above: Performed By: #### H H, BMP ####[facility] ([id number])[address] [address] [place] [address] Creatinine [Mass/Vol] 0.69 mg/dL Normal 0.60-1.30 [facility] Comment on above: Result Comment: METH OD TRACEABLE TO IDMS STANDARD Performed By: #### H H, BMP ####[facility] ([id number])[address] [address] [place] [address] eGFR (CKD-EPI) NON-RACE DEPENDENT >90 Normal >59 [facility] Comment on above: Result Comment: Reported eGFR is based on the CKD-EPI 2020 equation that does not use a race coefficient. Performed By: #### H H, BMP ####[facility] ([id number])[address], [place] [address] Glucose [Mass/Vol] 102 mg/dL High 65-99 [facility] Comment on above: Performed By: #### H H, BMP ####[facility] ([id number])[address] [place] [address] Potassium [Moles/Vol] 3.9 mmol/L Normal 3.5-5.0 [facility] Comment on above: Performed By: #### H H, BMP ####[facility] ([id number])[address] [place] [address] Sodium [Moles/Vol] 141 mmol/L Normal 134-146 [facility] Comment on above: Performed By: #### H H, BMP ####[facility] ([id number])[address] [place] [address] Urea nitrogen [Mass/Vol] 20 mg/dL Normal 5-23 [facility] Comment on above: Performed By: #### H H, BMP ####[facility] ([id number])[address] [place] [address] HGB AND HCTon 10-25-2023 Hematocrit (Bld) [Volume fraction] 36.2 % Low 39-49 [facility] Comment on above: Performed By: #### H H, BMP ####[facility] ([id number])[address] [place] [address] Hemoglobin (Bld) [Mass/Vol] 12.1 g/dL Low 13.0-17.0 [facility] Comment on above: Performed By: #### H H, BMP ####[facility] ([id number])[address], [place] [address] BASIC METABOLIC PANLon 10-23 Anion gap [Moles/Vol] 10 mmol/L Normal 5-15 [facility] Comment on above: Performed By: #### H H, BMP ####[facility] ([id number])[address] [place] [address] Calcium [Mass/Vol] 8.7 mg/dL Normal 8.5-10.5 [facility] Comment on above: Performed By: #### H H, BMP ####[facility] ([id number])[address] [address], [place] [address] Chloride [Moles/Vol] 107 mmol/L Normal 98-109 [facility] Comment on above: Performed By: #### H H, BMP ####[facility] ([id number])[address] [address] [place] [address] CO2 [Moles/Vol] 28 mmol/L Normal 22-32 [facility] Comment on above: Performed By: #### H H, BMP ####[facility] ([id number])[address] [address] [place] [address] Creatinine [Mass/Vol] 0.73 mg/dL Normal 0.60-1.30 [facility] Comment on above: Result Comment: METH OD TRACEABLE TO IDMS STANDARD Performed By: #### H H, BMP ####[facility] ([id number])[address] [address] eGFR (CKD-EPI) NON-RACE DEPENDENT >90 Normal >59 [facility] Comment on above: Result Comment: Reported eGFR is based on the CKD-EPI 2020 equation that does not use a race coefficient. Performed By: #### H H, BMP ####[facility] ([id number])[address] [address], [place] [address] Glucose [Mass/Vol] 94 mg/dL Normal 65-99 [facility] Comment on above: Performed By: #### H H, BMP ####[facility] ([id number])[address] [address], [place] [address] Potassium [Moles/Vol] 4.1 mmol/L Normal 3.5-5.0 [facility] Comment on above: Performed By: #### H H, BMP ####[facility] ([id number])[address], [place] [address] Sodium [Moles/Vol] 145 mmol/L Normal 134-146 [facility] Comment on above: Performed By: #### H H, BMP ####[facility] ([id number])[address], [place] [address] Urea nitrogen [Mass/Vol] 20 mg/dL Normal 5-23 [facility] Comment on above: Performed By: #### H H, BMP ####[facility] ([id number])[address], [address] [place] [address], [place] [address] HGB AND HCTon 10-24-2023 Hematocrit (Bld) [Volume fraction] 35.0 % Low 39-49 [facility] Comment on above: Performed By: #### H H, BMP ####[facility] ([id number])[address] [place] [address], [place] [address] Hemoglobin (Bld) [Mass/Vol] 11.9 g/dL Low 13.0-17.0 [facility] Comment on above: Performed By: #### H H, BMP ####[facility] ([id number])[address] [place] [address] BASIC METABOLIC PANLon 10-22 Anion gap [Moles/Vol] 6 mmol/L Normal 5-15 [facility] Comment on above: Performed By: #### H H, BMP ####[facility] ([id number])[address], [address] [place] [address], [place] [address] Calcium [Mass/Vol] 8.4 mg/dL Low 8.5-10.5 [facility] Comment on above: Performed By: #### H H, BMP ####[facility] ([id number])[address] [address] [place] [address], [place] [address] Chloride [Moles/Vol] 106 mmol/L Normal 98-109 [facility] Comment on above: Performed By: #### H Kobe, BMP ####[facility] ([id number])[address] [address] CO2 [Moles/Vol] 29 mmol/L Normal 22-32 [facility] Comment on above: Performed By: #### H Kobe, BMP ####[facility] ([id number])[address] [address] Creatinine [Mass/Vol] 0.76 mg/dL Normal 0.60-1.30 [facility] Comment on above: Result Comment: METH OD TRACEABLE TO IDMS STANDARD Performed By: #### H Kobe, BMP ####[facility] ([id number])[address] [address] eGFR (CKD-EPI) NON-RACE DEPENDENT >90 Normal >59 [facility] Comment on above: Result Comment: Reported eGFR is based on the CKD-EPI 2020 equation that does not use a race coefficient. Performed By: #### H Kobe, BMP ####[facility] ([id number])[address] [address] [place] [address] Glucose [Mass/Vol] 99 mg/dL Normal 65-99 [facility] Comment on above: Performed By: #### H H, BMP ####[facility] ([id number])[address] [address] [place] [address] Potassium [Moles/Vol] 4.1 mmol/L Normal 3.5-5.0 [facility] Comment on above: Performed By: #### H H, BMP ####[facility] ([id number])[address] [address] Sodium [Moles/Vol] 141 mmol/L Normal 134-146 [facility] Comment on above: Performed By: #### H H, BMP ####[facility] ([id number])[address], [address] [place] [address] Urea nitrogen [Mass/Vol] 15 mg/dL Normal 5-23 [facility] Comment on above: Performed By: #### H H, BMP ####[facility] ([id number])[address], [address] [place] [address] HGB AND HCTon 10-23-2023 Hematocrit (Bld) [Volume fraction] 36.0 % Low 39-49 [facility] Comment on above: Performed By: #### H H, BMP ####[facility] ([id number])[address], [address] [place] [address] Hemoglobin (Bld) [Mass/Vol] 12.0 g/dL Low 13.0-17.0 [facility] Comment on above: Performed By: #### H H, BMP ####[facility] ([id number])[address] [address] MR LUMBAR SPINE WO CONTon MR LUMBAR SPINE WO CONT MR LUMBAR SPINE WO CONT CLINICAL INFORMATION: Hematoma. COMPARISON: 08/03/23. PROCEDURE: Routine lumbosacral spine protocol MRI was obtained without contrast material. Multisequence, multiplanar imaging was obtained. FINDINGS: Spine fusion from L2 to S1. Laminectomy at L1-2. There is retrolisthesis of L1 on L2. Edema in the posterior soft tissues. There is bone edema in the L1 vertebral body as well as endplate edema at T12-L1 with Schmorl's nodes. T11-12 and T12-L1 disc bulges. Diffuse atrophy of the paraspinal musculature. There is some heterogeneous blood products professional to the laminectomy site at L1-2 with possible mild to moderate canal stenosis at the L1-2 level, difficult to assess given artifact. Renal cysts are noted. Edema in the soft tissues. IMPRESSION: * Extensive postsurgical changes with artifact degrading assessment as detailed above. * Interval L1 and L2 laminectomy with blood products in the posterior soft tissues extending to the posterior aspect of the thecal sac region with mild to moderate canal stenosis. * Extensive endplate degenerative changes most notably at T12-L1 and L1-2 with disc abnormalities and degenerative changes noted above. * Mild retrolisthesis of L1 on L2. 9 Finalized by Xu Avitia MD on 10/23/2023 2:26 PM Normal [facility] BASIC METABOLIC PANLon 10-21 Anion gap [Moles/Vol] 5 mmol/L Normal 5-15 [facility] Comment on above: Performed By: #### H H, BMP ####[facility] ([id number])[address] [address], [place] [address] Calcium [Mass/Vol] 8.5 mg/dL Normal 8.5-10.5 [facility] Comment on above: Performed By: #### H H, BMP ####[facility] ([id number])[address], [place] [address] Chloride [Moles/Vol] 108 mmol/L Normal 98-109 [facility] Comment on above: Performed By: #### H H, BMP ####[facility] ([id number])[address] [address] [place] [address], [place] [address] CO2 [Moles/Vol] 28 mmol/L Normal 22-32 [facility] Comment on above: Performed By: #### H H, BMP ####[facility] ([id number])[address] [address], [place] [address] Creatinine [Mass/Vol] 0.77 mg/dL Normal 0.60-1.30 [facility] Comment on above: Result Comment: METH OD TRACEABLE TO IDMS STANDARD Performed By: #### H H, BMP ####[facility] ([id number])[address] [place] [address] eGFR (CKD-EPI) NON-RACE DEPENDENT >90 Normal >59 [facility] Comment on above: Result Comment: Reported eGFR is based on the CKD-EPI 2020 equation that does not use a race coefficient. Performed By: #### H H, BMP ####[facility] ([id number])[address], [address] [place] [address] Glucose [Mass/Vol] 112 mg/dL High 65-99 [facility] Comment on above: Performed By: #### H H, BMP ####[facility] ([id number])[address], [address] [place] [address] Potassium [Moles/Vol] 4.6 mmol/L Normal 3.5-5.0 [facility] Comment on above: Performed By: #### H H, BMP ####[facility] ([id number])[address], [address] [place] [address] Sodium [Moles/Vol] 141 mmol/L Normal 134-146 [facility] Comment on above: Performed By: #### H H, BMP ####[facility] ([id number])[address], [address] [place] [address] Urea nitrogen [Mass/Vol] 12 mg/dL Normal 5-23 [facility] Comment on above: Performed By: #### H H, BMP ####[facility] ([id number])[address], [address] [place] [address] FL FLUORO GUIDANCE SPINAL PU NCTURE OPERATIVEon 10-22-2023 FL FLUORO GUIDANCE SPINAL PUNCTURE OPERATIVE FL FLUORO GUIDANCE SPINAL PUNCTURE OPERATIVE EXAM: FL FLUORO GUIDANCE SPINAL PUNCTURE OPERATIVE CLINICAL INDICATIONS: surgery IMPRESSION: Fluoro Time: 4 sec Reference Air Kerma Dose: 1.4 mGy For the purpose of documentation, fluoroscopic guidance was provided for: Laminectomy. A radiologist was not present during the procedure. Please refer to the dedicated operative note, for complete characterization. 9 Finalized by Vitor Mirza on 10/22/2023 12:33 PM Normal [facility] HGB AND HCTon 10-22-2023 Hematocrit (Bld) [Volume fraction] 37.0 % Low 39-49 [facility] Comment on above: Performed By: #### H H, CRUZ #### [facility] ([id number]) [address], [address] [place] [address] Hemoglobin (Bld) [Mass/Vol] 12.6 g/dL Low 13.0-17.0 [facility] Comment on above: Performed By: #### H H, BMP #### [facility] ([id number]) [address], [address] [place] [address] Bacteria identified Cx Nom ( U)on 10-09-2023 Service comment (Unsp spec) [Interp] NO GROWTH AT <1000 CFU/mL [facility] ABO Rh Repeaton 10-08-2023 ABO O [facility] Rh Nom (Bld) Positive [facility] APTTon 10-08-2023 aPTT Coag (PPP) [Time] 40 s High Pr [facility] BASIC METABOLIC PANLon 10-08 Anion gap [Moles/Vol] 9 mmol/L Normal 5-15 [facility] Comment on above: Performed By: #### C BCA, BMP, PINR, 58904-4 #### [facility] ([id number]) [address], [address] [place] [address] Calcium [Mass/Vol] 9.4 mg/dL Normal 8.5-10.5 [facility] Comment on above: Performed By: #### C BCA, BMP, PINR, 51688-3 #### [facility] ([id number]) [address], [address] [place] [address] Chloride [Moles/Vol] 104 mmol/L Normal 98-109 [facility] Comment on above: Performed By: #### C BCA, BMP, PINR, 84931-8 #### [facility] ([id number]) [address], [address] [place] [address] CO2 [Moles/Vol] 28 mmol/L Normal 22-32 [facility] Comment on above: Performed By: #### C BCA, BMP, PINR, 26879-0 #### [facility] ([id number]) [address], [address] [place] [address] Creatinine [Mass/Vol] 0.95 mg/dL Normal 0.60-1.30 [facility] Comment on above: Result Comment: METH OD TRACEABLE TO IDMS STANDARD Performed By: #### C BCA, BMP, PINR, 12975-4 #### [facility] ([id number]) [address], [address] [place] [address] eGFR (CKD-EPI) NON-RACE DEPENDENT >90 Normal >59 [facility] Comment on above: Result Comment: Reported eGFR is based on the CKD-EPI 2020 equation that does not use a race coefficient. Performed By: #### C BCA, BMP, PINR, 80077-4 #### [facility] ([id number]) [address], [address] [place] [address] Glucose [Mass/Vol] 96 mg/dL Normal 65-99 [facility] Comment on above: Performed By: #### C BCA, BMP, PINR, 18682-3 #### [facility] ([id number]) [address], [address] [place] [address] Potassium [Moles/Vol] 4.1 mmol/L Normal 3.5-5.0 [facility] Comment on above: Performed By: #### C BCA, BMP, PINR, 43779-2 #### [facility] ([id number]) [address], [address] [place] [address] Sodium [Moles/Vol] 141 mmol/L Normal 134-146 [facility] Comment on above: Performed By: #### C BCA, BMP, PINR, 70561-3 #### [facility] ([id number]) [address], [address] [place] [address] Urea nitrogen [Mass/Vol] 13 mg/dL Normal 5-23 [facility] Comment on above: Performed By: #### C BCA, BMP, PINR, 96171-5 #### [facility] ([id number]) [address] [facility], [address] [place] [address] Basic Metabolic Panelon - Anion gap [Moles/Vol] 9 mmol/L 5 - 15 mmol/L [facility] Calcium [Mass/Vol] 9.4 mg/dL 8.5 - 10. 5 mg/dL [facility] Chloride [Moles/Vol] 104 mmol/L 98 - 10 9 mmol/L [facility] CO2 [Moles/Vol] 28 mmol/L 22 - 32 mmol/L [facility] Creatinine [Mass/Vol] 0.95 mg/dL 0.60 - 1.30 mg/dL [facility] Comment on above: METHOD TRACEABLE TO IDUT STANDARD eGFR (CKD-EPI)non-race dependent - PINF [facility] Comment on above: Reported eGFR is based on the CKD-EPI 2020 equation that does not use a race coefficient. Glucose [Mass/Vol] 96 mg/dL 65 - 99 mg/dL [facility] Potassium [Moles/Vol] 4.1 mmol/L 3.5 - 5.0 mmol/L [facility] Sodium [Moles/Vol] 141 mmol/L 134 - 146 mmol/L [facility] Urea nitrogen [Mass/Vol] 13 mg/dL 5 - 23 mg/dL [facility] CBC AND AUTO DIFFon 10-08-19 ABSOLUTE BASOPHIL 0.0 X10E9/L Normal 0.0-0.2 [facility] Comment on above: Performed By: #### C BCA, BMP, PINR, 37800-3 #### [facility] ([id number]) [address] [facility] [facility], [address] [place] [address] ABSOLUTE NEUTROPHIL 4.2 X10E9/L Normal 1.5-6.6 [facility] Comment on above: Performed By: #### C BCA, BMP, PINR, 18435-9 #### [facility] ([id number]) [address], [address] [place] [address] Basophils/100 WBC (Bld) 0.7 % Normal [facility] Comment on above: Performed By: #### C BCA, BMP, PINR, 42984-8 #### [facility] ([id number]) [address], [facility] [address] [place] [address] Eosinophils (Bld) [#/Vol] 0.1 10*3/uL Normal 0.0-0.4 [facility] Comment on above: Performed By: #### C BCA, BMP, PINR, 48124-3 #### [facility] ([id number]) [address], [address] [place] [address] Eosinophils/100 WBC (Bld) 1.1 % Normal [facility] Comment on above: Performed By: #### C BCA, BMP, PINR, 83557-5 #### [facility] ([id number]) [address], [address] [place] [address] Erythrocyte distribution width (RBC) [Ratio] 14.0 % Normal 11.5-15.0 [facility] Comment on above: Performed By: #### C BCA, BMP, PINR, 29489-4 #### [facility] ([id number]) [address], [address] [place] [address] Hematocrit (Bld) [Volume fraction] 39.4 % Normal 39-49 [facility] Comment on above: Performed By: #### C BCA, BMP, PINR, 41054-4 #### [facility] ([id number]) [address], [address] [place] [address] Hemoglobin (Bld) [Mass/Vol] 13.3 g/dL Normal 13.0-17.0 [facility] Comment on above: Performed By: #### C BCA, BMP, PINR, 54215-6 #### [facility] ([id number]) [address], [address] [place] [address] Lymphocytes (Bld) [#/Vol] 2.2 10*3/uL Normal 1.0-3.5 [facility] Comment on above: Performed By: #### C BCA, BMP, PINR, 17353-3 #### [facility] ([id number]) [address], [facility] [address] [place] [address] Lymphocytes/100 WBC (Bld) 31.4 % Normal [facility] Comment on above: Performed By: #### C BCA, BMP, PINR, 25762-0 #### [facility] ([id number]) [address], [address] [place] [address] MCH (RBC) [Entitic mass] 31.2 pg Normal 27-34 [facility] Comment on above: Performed By: #### C BCA, BMP, PINR, 69887-3 #### [facility] ([id number]) [address], [address] [place] [address] MCHC (RBC) [Mass/Vol] 33.7 g/dL Normal 32-36 [facility] Comment on above: Performed By: #### C BCA, BMP, PINR, 02493-3 #### [facility] ([id number]) [address], [address] [place] [address] MCV (RBC) [Entitic vol] 93 fL Normal 80-100 [facility] Comment on above: Performed By: #### C BCA, BMP, PINR, 56720-3 #### [facility] ([id number]) [address], [address] [place] [address] Monocytes (Bld) [#/Vol] 0.5 10*3/uL Normal 0-0.9 [facility] Comment on above: Performed By: #### C BCA, BMP, PINR, 23531-2 #### [facility] ([id number]) [address] [place] [address] Monocytes/100 WBC (Bld) 7.2 % Normal [facility] Comment on above: Performed By: #### C BCA, BMP, PINR, 01475-9 #### [facility] ([id number]) [address], [address] [place] [address] Neutrophils/100 WBC (Bld) 59.6 % Normal [facility] Comment on above: Performed By: #### C BCA, BMP, PINR, 22444-7 #### [facility] ([id number]) [address], [address] [place] [address] Platelet mean volume (Bld) [Entitic vol] 9.1 fL Normal 7-12 [facility] Comment on above: Performed By: #### C BCA, BMP, PINR, 56268-3 #### [facility] ([id number]) [address], [address] [place] [address] Platelets (Bld) [#/Vol] 212 10*3/uL Normal 150-450 [facility] Comment on above: Performed By: #### C BCA, BMP, PINR, 39034-6 #### [facility] ([id number]) [address], [address] [place] [address] RBC COUNT 4.25 X10E12/L Normal 4.10-5.70 [facility] Comment on above: Performed By: #### C BCA, BMP, PINR, 08796-0 #### [facility] ([id number]) [address], [address] [place] [address] WBC (Bld) [#/Vol] 7.1 10*3/uL Normal 4.0-11.0 [facility] Comment on above: Performed By: #### C BCA, BMP, PINR, 07011-8 #### [facility] ([id number]) [address] [facility] [facility] [place] [address] CBC auto differentialon 09-17 Basophils (Bld) [#/Vol] 0.0 10*3/uL [facility] Basophils/100 WBC (Bld) 0.7 % P [facility] Eosinophils (Bld) [#/Vol] 0.1 10*3/uL [facility] Eosinophils/100 WBC (Bld) 1.1 % [facility] Erythrocyte distribution width (RBC) [Ratio] 14.0 % 11.5 - 15.0 % [facility] Hematocrit (Bld) [Volume fraction] 39.4 % 39 - 49 % [facility] Hemoglobin (Bld) [Mass/Vol] 13.3 g/dL 13.0 - 17.0 g/dL [facility] Lymphocytes (Bld) [#/Vol] 2.2 10*3/uL [facility] Lymphocytes/100 WBC (Bld) 31.4 % [facility] MCH (RBC) [Entitic mass] 31.2 pg 27 - 34 pg [facility] MCHC (RBC) [Mass/Vol] 33.7 g/dL 32 - 3 6 g/dL [facility] MCV (RBC) [Entitic vol] 93 fL 80 - 100 fL [facility] Monocytes (Bld) [#/Vol] 0.5 10*3/uL [facility] Monocytes/100 WBC (Bld) 7.2 % P [facility] Neutrophils (Bld) [#/Vol] 4.2 10*3/uL [facility] Neutrophils/100 WBC (Bld) 59.6 % [facility] Platelet mean volume (Bld) [Entitic vol] 9.1 fL 7 - [address] [facility] Platelets (Bld) [#/Vol] 212 10*3/uL [facility] RBC (Bld) [#/Vol] 4.25 10*6/uL [facility] WBC corrected for nucl RBC Auto (Bld) [#/Vol] 7.1 [facility] ECG 12 leadon 10-08-2023 TRACEMASTERVUE [facility] No Panel Informationon 10-08 [facility] PROTIME AND INRon 10-08-2023 INR Coag (PPP) [Relative time] 1.0 {INR} Normal 0.8-1.1 [facility] Comment on above: Performed By: #### C BCA, BMP, PINR, 09211-5 #### [facility] ([id number]) [address], [address] [place] [address] PT Coag (PPP) [Time] 11.1 s Normal 9.8-13.2 [facility] Comment on above: Performed By: #### C BCA, BMP, PINR, 62989-4 #### [facility] ([id number]) [address], [address] [place] [address] Protime & INRon 10-08-2023 INR Coag (PPP) [Relative time] 1.0 {INR} [facility] PT Coag (PPP) [Time] 11.1 s [facility] Type and screenon 10-08-2023 ABO O [facility] Rh Nom (Bld) Positive [facility] URINALYSISon 10-08-2023 Bilirubin Ql (U) Negative Normal NEG [facility] BLOOD/HGB Negative Normal NEG [facility] Color (U) YELLOW Normal YELLOW [facility] Glucose Ql (U) Negative Normal NEG [facility] Ketones Ql (U) Negative Normal NEG [facility] Leukocyte esterase Test strip Ql (U) Negative Normal NEG [facility] Nitrite Ql (U) Negative Normal NEG [facility] pH (U) 7.5 [pH] Normal 5.0-8.5 [facility] Protein Ql (U) Negative Normal NEG [facility] Specific gravity (U) [Rel density] 1.010 Normal 1.003-1.035 [facility] TURBIDITY CLEAR Normal CLEAR [facility] Urobilinogen (U) [Mass/Vol] mg/dL Normal <1.1 [facility] URINE CULTUREon 10-08-2023 Bacteria identified Cx Nom (U) CULTURE RESULTS NO GROWTH AT <1000 CFU/mL Normal [facility] Comment on above: Performed By: #### 6 30-4 #### [facility] ([id number]) [address] [place] [address], [address] [place] [address] Urinalysison 10-08-2023 Bilirubin Ql (U) Negative Negative^Ne gative [facility] Color (U) YELLOW YELLOW^YELL OW [facility] Glucose (U) [Mass/Vol] Negative Negat devyn^Ne gative mg/dL [facility] Hemoglobin Auto test strip Ql (U) Negative Negative^Ne gative [facility] Ketones (U) [Mass/Vol] Negative Negat devyn^Ne gative mg/dL [facility] Leukocyte esterase Auto test strip Ql (U) Negative Negative^Ne gative [facility] Nitrite Auto test strip Ql (U) Negative Negative^Ne gative [facility] pH (U) 7.5 [pH] 5.0 - 8.5 [facility] Protein (U) [Mass/Vol] Negative Negat devyn^Ne gative mg/dL [facility] Specific gravity Refractometry automated (U) [Rel density] 1.010 1.003 - 1.035 [facility] Turbidity Ql (U) CLEAR CLEAR^CLEAR [facility] Urobilinogen Qn (U) NINF [facility] aPTT Coag (PPP) [Time]on aPTT Coag (Bld) [Time] 40 s High 26-37 Pr [facility] Comment on above: Performed By: #### C BCA, BMP, PINR, 85141-5 #### [facility] ([id number]) [address] [facility] [facility] [place] [address] Interpretation and review of laboratory results Abnormal [facility] Physician Referralon 024 Physician Referral [phone] [id number] Normal [facility] XR Chest PA and Lateralon Brenden Zapien MD - 09/23/2023 CLINICAL INFORMATION: . Pre-op testing. TECHNIQUE/PROCEDURE : Chest radiographs, two views. COMPARISON: Prior chest radiographs, most recently 05/24/2018 FINDINGS: No tracheal deviation. Cardiac and mediastinal contours are normal. No consolidation, pneumothorax or pleural effusion. No free air. IMPRESSION: * No radiographic evidence of acute cardiopulmonary disease. 3 Finalized by Brenden Zapien MD on 09/23/2023 4:11 PM [facility] Study observation (narrative) [employer] XR Chest PA and LateralOrder ed By: Brenden Zapien on 09-23-2023 [employer] Work Phone: CT LUMBAR SPINE WO CONTon CT LUMBAR SPINE WO CONT CT LUMBAR SPINE WO CONT Study: Ct Lumbar spine History: History of prior surgery and fusion. Back pain. Technique: Axial images from the lower thoracic spine through the lumbar spine were obtained followed by sagittal and coronal reconstructed images. Findings: Transpedicular screws have been placed for fusion of L2-S1. Screws appear intact. Plates are intact. Bony fusion is confirmed. No evidence of acute hardware complication. Sclerosis and chronic endplate changes at L1-2 are noted. Complete collapse the disc space has occurred. There is foraminal stenosis noted bilaterally at this level as well as arthrosis. Similar degenerative changes are noted at T10-11 and T11-12. Underlying spondyloarthropathy . Please also refer to prior MRI report from 08/03/2023 No acute process. Impression: Chronic and postsurgical changes are noted. These are detailed above. Please correlate with the clinical picture.. All CT scans at this facility use dose modulation, iterative reconstruction, and/or weight based dosing when appropriate to reduce radiation dose to as low as reasonably achievable. 5 Finalized by Rhiannon Andrade MD on 09/10/2023 1:49 PM Normal [facility] XR SPINE LUMB BENDING ONLY 2 -3 VWSon 09-03-2023 XR SPINE LUMB BENDING ONLY 2-3 VWS XR SPINE LUMB BENDING ONLY 2-3 VWS XR SPINE LUMB BENDING ONLY 2-3 VWS History: Spinal stenosis of lumbar region with neurogenic claudication; History of lumbar fusion Impression: * No acute findings. Multilevel hardware similar to August 04, 2022. * No fracture or destructive lesion. * Diffuse disc disease and facet arthritis. . * Stable flexion-extension 0 Finalized by Max Rodriguez MD on 09/03/2023 5:22 AM Normal [facility] MR LUMBAR SPINE WO CONTon MR LUMBAR SPINE WO CONT MR LUMBAR SPINE WO CONT HISTORY: A 53-year-old male with the history of the chronic low back pain and pain radiating down into the right lower extremity with tingling and numbness. Prior history of lumbar spinal fusion surgery in 2019. Preoperative examination. TECHNIQUE: Multiplanar and multisequence MRI examination of the lumbar spine is performed. COMPARISON: Comparison is made with prior MRI examination of the lumbar spine of 01/10/2021 and plain film radiographs of the lumbar spine of 08/04/2022. FINDINGS: Vertebral heights are normal. There are diffuse degenerative changes in the lower thoracic and lumbar spine. There is a retrolisthesis at L1-L2. There is a heterogeneous marrow signal from degenerative arthritis and prior surgery. No acute bony pathology is identified. Both sacroiliac joints are intact. No significant paravertebral soft tissue abnormality seen. There is a 3.8 cm left renal cyst. At T10-T11, there is a disc bulging with mild degree of spinal stenosis but neural foramina are patent. At T11-T12, there is a disc degenerative changes with facet arthropathy and disc bulging causing moderate degree of spinal stenosis and narrowing of the right neural foramen. Left neural foramen is patent. At T12-L1, there is a severe disc degenerative disease with facet arthropathy and disc bulging causing moderate degree of spinal stenosis and narrowing of the neural foramina. At L1-L2, there is a severe disc degenerative disease with retrolisthesis and disc bulging causing severe degree of spinal stenosis and narrowing of the neural foramina. At L2-L3, L3-L4, L4-L5 and L5-S1, there is a posterior lumbar spinal fusion with pedicular shading painter screws, long segment of the rods and intervertebral spacers. Postsurgical changes seen. No significant central canal narrowing is identified. Neural foramina are grossly patent. There is a disc bulge at L5-S1. Conus is seen at the level of L1. No intrathecal signal abnormality seen. IMPRESSION: * Surgical spinal fusion from L2 to S1 with postsurgical change. No hardware complications are seen. Disc bulging at L5-S1. No evidence of significant central canal narrowing or narrowing of the neural foramina at the levels of the fusion. 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 Associated disc bulging is seen at multiple levels. Various degrees of spinal stenosis and narrowing of the neural foramina in the lower thoracic and upper lumbar region has described above. * Retrolisthesis at L1-L2. * There has been further progression of the degenerative arthritis since prior examination of 01/03/2021. 0 Finalized by Rohit Combs MD on 08/04/2023 9:59 AM Normal [facility] XR lumbar spine AP/LAT/FLX/E XTon 05-24-2023 XR lumbar spine AP/LAT/FLX/EXT [facility] [place] [address] [place] [address] XRay Report Signed Patient: Celestino Peñaloza MR#: [id number] : 1970 Acct:[id number] Age/Sex: 52 / M ADM Date: 05/24/23 Loc: XD Room: Type: [facility] Attending Dr: Trino Cadet MD Copies to: Trino Cadet MD Ordering Provider: Trino Cadet MD Date of Service: 05/24/23 XR/XR lumbar spine AP/LAT/FLX/EXT: M48.062 XR lumbar spine AP/LAT/FLX/EXT 05/24/2023 3:11 PM SIGNS AND SYMPTOMS: Low back pain radiating into lower extremities, right greater than left PROTOCOLS: Frontal, lateral, and flexion-extension views of the lumbar spine COMPARISON: 08/04/2022 FINDINGS: There is posterior fusion hardware from L2 through S1 without hardware complication or malalignment. There is severe disc height loss at L1-L2. There is anterior osteophyte formation throughout. There is 6 mm of retrolisthesis of L1 upon L2 on extension reducing to near neutral on flexion suspicious for pathologic movement. This is worse when compared to the prior exam. The sacrum and sacroiliac joints are normal. XR/XR lumbar spine AP/LAT/FLX/EXT IMPRESSION: There is 6 mm of retrolisthesis of L1 upon L2 on extension reducing to near neutral on flexion suspicious for pathologic movement. This is worse when compared to the prior exam. Unchanged posterior fusion from L2 through S1. Impression dictated by: Mesfin Snell M.D.05/24/2023 8:03 PM Dictation Location: [place] [address] Transcribed By: [facility] 05/24/232002 Dictated By: Mesfin Snell II, MD 05/24/232001 Signed By: 05/24/232002 [facility] INSULINon 09-04-2022 Insulin 6.5 uIU/mL Normal 2.6-24.9 [facility] Comment on above: Performed By: #### I NSULIN #### [facility] [address] [place] [address] Dr. Randall Ayoub CBC AUTO DIFFon 09-03-2022 BASO # 0.0 103/ul Normal 0.0-0.1 [facility] Comment on above: Performed By: #### C BC #### [facility] [address] [place] [address] Dr. Randall Ayoub Basophils/100 WBC (Bld) 0.6 % Normal 0.2-2.0 [facility] Comment on above: Performed By: #### C BC #### [facility] [address] [place] [address] Dr. Randall Ayoub EO # 0.2 103/ul Normal 0.0-0.7 [facility] Comment on above: Performed By: #### C BC #### [facility] [address] [place] [address] Dr. Randall Ayoub Eosinophils/100 WBC (Bld) 3.2 % Normal 0.9-7.0 [facility] Comment on above: Performed By: #### C BC #### [facility] [address] [place] [address] Dr. Randall Ayoub Erythrocyte distribution width (RBC) [Ratio] 13.8 % Normal 11.0-15.0 [facility] Comment on above: Performed By: #### C BC #### [facility] [address] [place] [address] Dr. Randall Ayoub Hematocrit (Bld) [Volume fraction] 39.5 % Critically low 42.0-54.0 [facility] Comment on above: Performed By: #### C BC #### [facility] [address] [place] [address] Dr. Randall Ayoub Hemoglobin (Bld) [Mass/Vol] 13.0 g/dL Critically low 14.0-18.0 [facility] Comment on above: Performed By: #### C BC #### [facility] [address] [place] [address] Dr. Randall Ayoub IG # 0.00 10e3/ul Normal 0.00-0.03 [facility] Comment on above: Performed By: #### C BC #### [facility] [address] [place] [address] Dr. Randall Ayoub IG % 0.0 % Normal 0.0-0.5 [facility] Comment on above: Performed By: #### C BC #### [facility] [address] [place] [address] Dr. Randall Ayoub LYMPH # 2.3 103/ul Normal 1.2-3.8 [facility] Comment on above: Performed By: #### C BC #### [facility] [address] [place] [address] Dr. Randall Ayoub Lymphocytes/100 WBC (Bld) 35.2 % Normal 20.5-60.0 [facility] Comment on above: Performed By: #### C BC #### [facility] [address] [place] [address] Dr. Randall Ayoub MANUAL DIFF REQ NO Normal [facility] Comment on above: Performed By: #### C BC #### [facility] [address] [place] [address] Dr. Randall Ayoub MCH (RBC) [Entitic mass] 30.8 pg Normal 25.9-34.0 [facility] Comment on above: Performed By: #### C BC #### [facility] [address] [place] [address] Dr. Randall Ayoub MCHC (RBC) [Mass/Vol] 32.9 g/dL Normal 29.9-35.2 [facility] Comment on above: Performed By: #### C BC #### [facility] [address] [place] [address] Dr. Randall Ayoub MCV (RBC) [Entitic vol] 93.6 fL Normal 80.0-94.0 [facility] Comment on above: Performed By: #### C BC #### [facility] [address] [place] [address] Dr. Randall Ayoub MONO # 0.6 103/ul Normal 0.3-0.8 [facility] Comment on above: Performed By: #### C BC #### [facility] [address] [place] [address] Dr. Randall Ayoub Monocytes/100 WBC (Bld) 8.9 % Normal 1.7-12.0 [facility] Comment on above: Performed By: #### C BC #### [facility] [address] [place] [address] Dr. Randall Ayoub NEUT # 3.4 103/ul Normal 1.4-6.5 [facility] Comment on above: Performed By: #### C BC #### [facility] [address] [place] [address] Dr. Randall Ayoub Neutrophils/100 WBC (Bld) 52.1 % Normal 43.0-75.0 [facility] Comment on above: Performed By: #### C BC #### [facility] [address] [place] [address] Dr. Randall Ayoub Platelet mean volume (Bld) [Entitic vol] 10.7 fL Normal 9.5-13.5 [facility] Comment on above: Performed By: #### C BC #### [facility] [address] [place] [address] Dr. Randall Ayoub PLT 186 103/ul Normal 150-450 [facility] Comment on above: Performed By: #### C BC #### [facility] [address] [place] [address] Dr. Randall Ayoub RBC 4.22 106/ul Critically low 4.70-6.10 [facility] Comment on above: Performed By: #### C BC #### [facility] [address] [place] [address] Dr. Randall Ayoub WBC 6.6 103/ul Normal 4.0-11.0 [facility] Comment on above: Performed By: #### C BC #### [facility] [address] [place] [address] Dr. Randall Ayoub GLYCOHEMOGLOBIN A1Con 2022 ADA RECOMMENDATION SEE BELOW Normal [facility] Comment on above: Result Comment: ADA RECOMMENDED LIMIT 4.0 - 6.0 ADA THERAPEUTIC TARGET < 7.0 ACTION SUGGESTED > 7.0 Performed By: #### A 1C #### [facility] [address] [place] [address] Dr. Randall Ayoub Glucose [Mass/Vol] 114 mg/dL Normal [facility] [place] Comment on above: Performed By: #### A 1C #### [facility] [address] [place] [address] Dr. Randall Ayoub HbA1c (Bld) [Mass fraction] 5.6 % Normal 4.5-6.2 [facility] Comment on above: Performed By: #### A 1C #### [facility] [address] [place] [address] Dr. Randall Ayoub LIPID PROFILEon 09-03-2022 CHOL-HDL RATIO NORM SEE BELOW Normal [facility] Comment on above: Result Comment: 3.3 - 4.4 LOW RISK 4.4 - 7.1 AVERAGE RISK 7.1 - 11.0 MODERATE RISK >11.0 HIGH RISK Performed By: #### I NSULIN #### [facility] [address] [address] [address] Randall Ayoub Cholesterol [Mass/Vol] 181 mg/dL Normal <=200 Th [facility] Comment on above: Performed By: #### I NSULIN #### [facility] [address] [address] [address] Randall Ayoub Cholesterol in HDL [Mass/Vol] 47 mg/dL Normal 40-60 [facility] Comment on above: Performed By: #### I NSULIN #### [facility] [address] [address] [address] Randall Ayoub Cholesterol in LDL [Mass/Vol] 113.4 mg/dL Normal [facility] Comment on above: Performed By: #### I NSULIN #### [facility] [address] [place] [address] Dr. Randall Ayoub Cholesterol.total/Génesis sterol in HDL [Mass ratio] 3.9 {ratio} Normal [facility] Comment on above: Performed By: #### I NSULIN #### [facility] [address] [place] [address] Dr. Randall Ayoub HDL NORMAL > or = 60 mg/dl - LOW CARDIOVASCULAR RISK <40 mg/dl - HIGH CARDIOVASCULAR RISK Normal [facility] Comment on above: Performed By: #### I NSULIN #### [facility] [address] [address] [address] Randall Ayoub LDL CALC NORMAL SEE BELOW Normal [facility] Comment on above: Result Comment: <100 mg/dl OPTIMAL 100 - 129 mg/dl NEAR OR ABOVE OPTIMAL 130 - 159 mg/dl BORDERLINE HIGH 160 - 189 mg/dl HIGH >190 mg/dl VERY HIGH Performed By: #### I NSULIN #### [facility] [address] [address] [address] Randall Ayoub Triglyceride [Mass/Vol] 103 mg/dL Normal <=150 T [facility] Comment on above: Performed By: #### I NSULIN #### [facility] [address] [address] [address] Randall Ayoub VLDL CALC 20.6 mg/dL Normal [facility] Comment on above: Performed By: #### I NSULIN #### [facility] [address] [place] [address] Dr. Randall Ayoub PROF 14(COMP METB)on 023 Albumin [Mass/Vol] 3.8 g/dL Normal 3.4-5.0 [facility] Comment on above: Performed By: #### I NSULIN #### [facility] [address] [place] [address] Dr. Randall Ayoub Albumin/Globulin [Mass ratio] 1.4 {ratio} Normal [facility] Comment on above: Performed By: #### I NSULIN #### [facility] [address] [place] [address] Dr. Randall Ayoub ALP [Catalytic activity/Vol] 72 U/L Normal 46-116 [facility] Comment on above: Performed By: #### I NSULIN #### [facility] [address] [place] [address] Dr. Randall Ayoub ALT [Catalytic activity/Vol] 22 U/L Normal 16-63 [facility] Comment on above: Performed By: #### I NSULIN #### [facility] [address] [place] [address] Dr. Randall Ayoub Anion gap [Moles/Vol] 12.9 mmol/L Normal [facility] Comment on above: Performed By: #### I NSULIN #### [facility] [address] [place] [address] Dr. Randall Ayoub AST [Catalytic activity/Vol] 17 U/L Normal 15-37 [facility] Comment on above: Performed By: #### I NSULIN #### [facility] [address] [place] [address] Dr. Randall Ayoub Bilirubin [Mass/Vol] 0.5 mg/dL Normal 0.2-1.0 [facility] Comment on above: Performed By: #### I NSULIN #### [facility] [address] [place] [address] Dr. Randall Ayoub Calcium [Mass/Vol] 8.7 mg/dL Normal 8.5-10.1 [facility] Comment on above: Performed By: #### I NSULIN #### [facility] [address] [place] [address] Dr. Randall Ayoub Chloride [Moles/Vol] 108 mmol/L Critically high 98-107 [facility] Comment on above: Performed By: #### I NSULIN #### [facility] [address] [place] [address] Dr. Randall Ayoub CO2 [Moles/Vol] 27.5 mmol/L Normal 21.0-32.0 [facility] Comment on above: Performed By: #### I NSULIN #### [facility] [address] [place] [address] Dr. Randall Ayoub Creatinine [Mass/Vol] 0.92 mg/dL Normal 0.70-1.30 [facility] Comment on above: Performed By: #### I NSULIN #### [facility] [address] [place] [address] Dr. Randall Ayoub EGFR-AF [place]BIAN >60 Normal >=60 [facility] Comment on above: Performed By: #### I NSULIN #### [facility] [address] [place] [address] Dr. Randall Ayoub EGFR-NON AF [place] >60 Normal >=60 [facility] Comment on above: Performed By: #### I NSULIN #### [facility] [address] [place] [address] Dr. Randall Ayoub Globulin (S) [Mass/Vol] 2.7 g/dL Normal [facility] Comment on above: Performed By: #### I NSULIN #### [facility] [address] [place] [address] Dr. Rnadall Ayoub Glucose [Mass/Vol] 96 mg/dL Normal 74-106 [facility] Comment on above: Performed By: #### I NSULIN #### [facility] [address] [place] [address] Dr. Randall Ayoub Potassium [Moles/Vol] 4.4 mmol/L Normal 3.5-5.1 [facility] Comment on above: Performed By: #### I NSULIN #### [facility] [address] [place] [address] Dr. Randall Ayoub Protein [Mass/Vol] 6.5 g/dL Normal 6.4-8.2 [facility] Comment on above: Performed By: #### I NSULIN #### [facility] [address] [place] [address] Dr. Randall Ayoub Sodium [Moles/Vol] 144 mmol/L Normal 136-145 [facility] Comment on above: Performed By: #### I NSULIN #### [facility] [address] [place] [address] Dr. Randall Ayoub Urea nitrogen [Mass/Vol] 23.0 mg/dL Critically high 7.0-18.0 [facility] Comment on above: Performed By: #### I NSULIN #### [facility] [address] [place] [address] Dr. Randall Ayoub Urea nitrogen/Creatinine [Mass ratio] 25.0 mg/mg Normal [facility] Comment on above: Performed By: #### I NSULIN #### [facility] [address] [place] [address] Dr. Randall Ayoub URIC ACID SERUMon 09-03-2022 Urate [Mass/Vol] 4.2 mg/dL Normal 3.5-7.2 [facility] Comment on above: Performed By: #### I NSULIN #### [facility] [address] [place] [address] Dr. Randall Ayoub CBC AUTO DIFFon 02-03-2022 BASO # 0.0 103/ul Normal 0.0-0.1 [facility] Comment on above: Performed By: #### I NSULIN #### [facility] [address] [place] [address] Dr. Randall Ayoub Basophils/100 WBC (Bld) 0.3 % Normal 0.2-2.0 [facility] Comment on above: Performed By: #### I NSULIN #### [facility] [address] [place] [address] Dr. Randall Ayoub EO # 0.0 103/ul Normal 0.0-0.7 [facility] Comment on above: Performed By: #### I NSULIN #### [facility] [address] [place] [address] Dr. Randall Ayoub Eosinophils/100 WBC (Bld) 0.5 % Critically low 0.9-7.0 [facility] Comment on above: Performed By: #### I NSULIN #### [facility] [address] [place] [address] Dr. Randall Ayoub Erythrocyte distribution width (RBC) [Ratio] 13.4 % Normal 11.0-15.0 [facility] Comment on above: Performed By: #### I NSULIN #### [facility] [address] [place] [address] Dr. Randall Ayoub Hematocrit (Bld) [Volume fraction] 41.7 % Critically low 42.0-54.0 [facility] Comment on above: Performed By: #### I NSULIN #### [facility] [address] [place] [address] Dr. Randall Ayoub Hemoglobin (Bld) [Mass/Vol] 14.0 g/dL Normal 14.0-18.0 [facility] Comment on above: Performed By: #### I NSULIN #### [facility] [address] [place] [address] Dr. Randall Ayoub IG # 0.01 10e3/ul Normal 0.00-0.03 [facility] Comment on above: Performed By: #### I NSULIN #### [facility] [address] [place] [address] Dr. Randall Ayoub IG % 0.3 % Normal 0.0-0.5 [facility] Comment on above: Performed By: #### I NSULIN #### [facility] [address] [place] [address] Dr. Randall Ayoub LYMPH # 1.7 103/ul Normal 1.2-3.8 [facility] Comment on above: Performed By: #### I NSULIN #### [facility] [address] [place] [address] Dr. Randall Ayoub Lymphocytes/100 WBC (Bld) 43.7 % Normal 20.5-60.0 [facility] Comment on above: Performed By: #### I NSULIN #### [facility] [address] [place] [address] Dr. Randall Ayoub MANUAL DIFF REQ NO Normal [facility] Comment on above: Performed By: #### I NSULIN #### [facility] [address] [place] [address] Dr. Randall Ayoub MCH (RBC) [Entitic mass] 31.7 pg Normal 25.9-34.0 [facility] Comment on above: Performed By: #### I NSULIN #### [facility] [address] [place] [address] Dr. Randall Ayoub MCHC (RBC) [Mass/Vol] 33.6 g/dL Normal 29.9-35.2 [facility] Comment on above: Performed By: #### I NSULIN #### [facility] [address] [place] [address] Dr. Randall Ayoub MCV (RBC) [Entitic vol] 94.3 fL Critically high 80.0-94 .0 [facility] Comment on above: Performed By: #### I NSULIN #### [facility] [address] [place] [address] Dr. Randall Ayoub MONO # 0.6 103/ul Normal 0.3-0.8 [facility] Comment on above: Performed By: #### I NSULIN #### [facility] [address] [place] [address] Dr. Randall Ayoub Monocytes/100 WBC (Bld) 14.7 % Critically high 1.7-12. 0 [facility] Comment on above: Performed By: #### I NSULIN #### [facility] [address] [place] [address] Dr. Randall Ayoub NEUT # 1.6 103/ul Normal 1.4-6.5 [facility] Comment on above: Performed By: #### I NSULIN #### [facility] [address] [place] [address] Dr. Randall Ayoub Neutrophils/100 WBC (Bld) 40.5 % Critically low 43.0-75.0 [facility] Comment on above: Performed By: #### I NSULIN #### [facility] [address] [address] [address] Randall Ayoub Platelet mean volume (Bld) [Entitic vol] 10.1 fL Normal 9.5-13.5 [facility] Comment on above: Performed By: #### I NSULIN #### [facility] [address] [address] [address] Randall Ayoub PLT 171 103/ul Normal 150-450 [facility] Comment on above: Performed By: #### I NSULIN #### [facility] [address] [address] [address] Randall Ayoub RBC 4.42 106/ul Critically low 4.70-6.10 [facility] Comment on above: Performed By: #### I NSULIN #### [facility] [address] [address] [address] Randall Ayoub WBC 3.9 103/ul Critically low 4.0-11.0 [facility] Comment on above: Performed By: #### I NSULIN #### [facility] [address] [place] [address] Dr. Randall Ayoub [facility] SARS-CoV-2 (COVID-19) RNA SERGIO+probe Ql (Unsp spec) Not detected Normal NOT DETECTED [facility] Comment on above: Result Comment: This test is not yet approved or cleared by the [place] FDA. When there are no FDA-approved or cleared tests available, and other criteria are met, FDA can make tests available under an emergency access mechanism called an Emergency Use Authorization (EUA). The EUA for this test is supported by the [place] of Health and Human Service's (HHS's) declaration that circumstances exist to justify the emergency use of in vitro diagnostics for the detection and/or diagnosis of the virus that causes COVID-19. This EUA will remain in effect (meaning this test can be used) for the duration of the COVID-19 declaration justifying emergency of IVDs, unless it is terminated or revoked by FDA (after which the test may no longer be used). When diagnostic testing is negative, the possibility of a false negative should be considered in the context of a patient's recent exposures and the presence of clinical signs and symptoms consistent with SARS-CoV-2. Performed By: #### C VDTB #### [facility] [address] [place] [address] Dr. Randall Ayoub ER URINE PROFILEon 2 Bilirubin Ql (U) MODERATE Abnormal NEGATIVE [facility] Comment on above: Performed By: #### E RUR #### [facility] [address] [place] [address] Dr. Randall Ayoub Clarity (U) CLEAR Normal CLEAR [facility] Comment on above: Performed By: #### E RUR #### [facility] [address] [place] [address] Dr. Randall Ayoub Color (U) DK. YELLOW Normal YELLOW [facility] Comment on above: Performed By: #### E RUR #### [facility] [address] [place] [address] Dr. Randall Ayoub ERUNina A micrscopic examination will be performed if indicated. Normal [facility] Comment on above: Performed By: #### E RUR #### [facility] [address] [place] [address] Dr. Randall Ayoub Glucose Ql (U) Negative Normal NEGATIVE [facility] Comment on above: Performed By: #### E RUR #### [facility] [address] [place] [address] Dr. Randall Ayoub Hemoglobin Ql (U) Negative Normal NEGATIVE [facility] Comment on above: Performed By: #### E RUR #### [facility] [address] [place] [address] Dr. Randall Ayoub Ketones Ql (U) >=80 Abnormal NEGATIVE [facility] Comment on above: Performed By: #### E RUR #### [facility] [address] [place] [address] Dr. Randall Ayoub LEUKOCYTES Negative Normal NEGATIVE [facility] Comment on above: Performed By: #### E RUR #### [facility] [address] [place] [address] Dr. Randall Ayoub Nitrite Ql (U) Negative Normal NEGATIVE [facility] Comment on above: Performed By: #### E RUR #### [facility] [address] [place] [address] Dr. Randall Ayoub pH (U) 6.5 [pH] Normal 5-9 [facility] Comment on above: Performed By: #### E RUR #### [facility] [address] [place] [address] Dr. Randall Ayoub Protein (U) [Mass/Vol] 30 mg/dL Abnormal NEGAT DEVYN/ TRACE [facility] Comment on above: Performed By: #### E RUR #### [facility] [address] [place] [address] Dr. Randall Ayoub SPEC GRAVITY 1.025 Normal 1.005-<=1.0 25 [facility] Comment on above: Performed By: #### E RUR #### [facility] [address] [place] [address] Dr. Randall Ayoub UR MICRO IND NOT INDICATED Normal [facility] Comment on above: Performed By: #### E RUR #### [facility] [address] [place] [address] Dr. Randall Ayoub Urobilinogen Qn (U) 1.0 {Kavita'U}/dL Normal 0.2 - 1. 0 [facility] Comment on above: Performed By: #### E RUR #### [facility] [address] [place] [address] Dr. Randall Ayoub INFLUENZA A AND B AGon 02-03 INFLUANEGH SEE BELOW Normal [facility] Comment on above: Result Comment: Nega tive for Flu A protein angiten. Infection due to Flu A cannot be ruled out. Flu A angiten in the sample may be below the detection limit of the test. Performed By: #### I NSULIN #### [facility] [address] [place] [address] Dr. Randall Ayoub INFLUBNEGH SEE BELOW Normal [facility] Comment on above: Result Comment: Nega tive for Flu B protein antigen. Infection due to Flu B cannot be ruled out. Flu B antigen in the sample may be below the detection limit of the test. Performed By: #### I NSULIN #### [facility] [address] [place] [address] Dr. Randall Ayoub INFLUENZA A AG Negative Normal NEGATIVE SEE COMMENT [facility] Comment on above: Performed By: #### I NSULIN #### [facility] [address] [place] [address] Dr. Randall Ayoub INFLUENZA B AG Negative Normal NEGATIVE SEE COMMENT [facility] Comment on above: Performed By: #### I NSULIN #### [facility] [address] [place] [address] Dr. Randall Ayoub INTERNAL CONTROLS Within Normal Limits Normal Within Normal Limits [facility] Comment on above: Performed By: #### I NSULIN #### [facility] [address] [place] [address] Dr. Randall Ayoub LACTATE/LACTIC ACIDon 2021 Lactate [Moles/Vol] 1.2 mmol/L Normal 0.4-1.9 [facility] Comment on above: Performed By: #### L ACT #### [facility] [address] [place] [address] Dr. Randall Ayoub PROF 14(COMP METB)on 022 Albumin [Mass/Vol] 4.0 g/dL Normal 3.4-5.0 [facility] Comment on above: Performed By: #### C MP #### [facility] [address] [place] [address] Dr. Randall Ayoub Albumin/Globulin [Mass ratio] 1.3 {ratio} Normal [facility] Comment on above: Performed By: #### C MP #### [facility] [address] [place] [address] Dr. Randall Ayoub ALP [Catalytic activity/Vol] 71 U/L Normal 46-116 [facility] Comment on above: Performed By: #### C MP #### [facility] [address] [address] [address] Randall Ayoub ALT [Catalytic activity/Vol] 26 U/L Normal 16-63 [facility] Comment on above: Performed By: #### C MP #### [facility] [address] [address] [address] Randall Ayoub Anion gap [Moles/Vol] 15.4 mmol/L Normal [facility] Comment on above: Performed By: #### C MP #### [facility] [address] [address] [address] Randall Ayoub AST [Catalytic activity/Vol] 15 U/L Normal 15-37 [facility] [facility] Comment on above: Performed By: #### C MP #### [facility] [address] [place] [address] Dr. Randall Ayoub Bilirubin [Mass/Vol] 0.6 mg/dL Normal 0.2-1.0 [facility] Comment on above: Performed By: #### C MP #### [facility] [address] [place] [address] Dr. Randall Ayoub Calcium [Mass/Vol] 8.9 mg/dL Normal 8.5-10.1 [facility] [place] Comment on above: Performed By: #### C MP #### [facility] [address] [place] [address] Dr. Randall Ayoub Chloride [Moles/Vol] 108 mmol/L Critically high 98-107 [facility] Comment on above: Performed By: #### C MP #### [facility] [address] [place] [address] Dr. Randall Ayoub CO2 [Moles/Vol] 23.1 mmol/L Normal 21.0-32.0 [facility] Comment on above: Performed By: #### C MP #### [facility] [address] [place] [address] Dr. Randall Ayoub Creatinine [Mass/Vol] 0.96 mg/dL Normal 0.70-1.30 [facility] Comment on above: Performed By: #### C MP #### [facility] [address] [place] [address] Dr. Randall Ayoub EGFR-AF COLOMBIAN >60 Normal >=60 [facility] Comment on above: Performed By: #### C MP #### [facility] [address] [address] [address] Randall Ayoub EGFR-NON AF COLOMBIAN >60 Normal >=60 [facility] Comment on above: Performed By: #### C MP #### [facility] [address] [address] [address] Randall Ayoub Globulin (S) [Mass/Vol] 3.0 g/dL Normal [facility] Comment on above: Performed By: #### C MP #### [facility] [address] [address] [address] Randall Ayoub Glucose [Mass/Vol] 99 mg/dL Normal 74-106 [facility] [place] Comment on above: Performed By: #### C MP #### [facility] [address] [address] [address] Randall Ayoub Potassium [Moles/Vol] 3.5 mmol/L Normal 3.5-5.1 [facility] Comment on above: Performed By: #### C MP #### [facility] [address] [address] [address] Randall Ayoub Protein [Mass/Vol] 7.0 g/dL Normal 6.4-8.2 [facility] [place] Comment on above: Performed By: #### C MP #### [facility] [address] [address] [address] Randall Ayoub Sodium [Moles/Vol] 143 mmol/L Normal 136-145 [facility] Comment on above: Performed By: #### C MP #### [facility] [address] [address] [address] Randall Ayoub Urea nitrogen [Mass/Vol] 24.0 mg/dL Critically high 7.0-18.0 [facility] Comment on above: Performed By: #### C MP #### [facility] [address] [address] [address] Randall Ayoub Urea nitrogen/Creatinine [Mass ratio] 25.0 mg/mg Normal [facility] Comment on above: Performed By: #### C MP #### [facility] [address] [place], [place] [address] Dr. Randall Ayoub SYMPTOMATIC COVID-19 ANTIGEN on 02-03-2022 EUA Statement SEE BELOW Normal [facility] Comment on above: Result Comment: This test has not been FDA cleared or approved, but has been authorized by the FDA under an Emergency Use Authorization (EUA) for use by authorized laboratories certified under CLIA that meet the requirements to perform moderate or high complexity testing. This test has been authorized only for the detection of proteins from SARS-CoV-2, not for any other viruses or pathogens. The emergency use of this test is authorized for the duration of the declaration that circumstances exist justifying the authorization of emergency use of in vitro diagnostic tests for detection and/or diagnosis of Covid-19 under section 564(b)(1) of the Act, 21 U.S.C. 360bbb-3(b)(1), unless the declaration is terminated or authorization is revoked sooner. Performed By: #### C VDAGS #### [facility] [address] [place] [id number] Randall Ayoub SARS-CoV-2 (COVID-19) RNA SERGIO+probe Ql (Unsp spec) Negative Normal NEGATIVE [facility] Comment on above: Performed By: #### C VDAGS #### [facility] [address] [place] [id number] [address] Randall Ayoub XR CHEST 2 Von 02-03-2022 XR CHEST 2 V EXAM: XR CHEST 2 V - 02/03/2022 COMPARISON STUDY: PA chest with left rib series 08/28/2019. HISTORY: SHORTNESS OF BREATH FINDINGS: The cardiomediastinal contours are stable. Mildly prominent left-sided epicardial fat pad is evident. No dense consolidation, effusion, edema, failure, pneumothorax or acute osseous change is identified. Posterior greta and screw fixation in the lumbar spine on the lateral image is noted. The hardware is partially visualized. IMPRESSION: 1. No acute cardiopulmonary process. 2. Posterior greta and screw fixation lumbar spine with hardware partially visualized. Electronically authenticated by: [employer] Date: 2022-02-03 17:08 Normal [facility] Covid-19 PCR (CVDTBH)on 12-14 SARS-CoV-2 (COVID-19) RNA SERGIO+probe Ql (Unsp spec) Not detected Normal NOT DETECTED [facility] Comment on above: Result Comment: This test is not yet approved or cleared by the [place] FDA. When there are no FDA-approved or cleared tests available, and other criteria are met, FDA can make tests available under an emergency access mechanism called an Emergency Use Authorization (EUA). The EUA for this test is supported by the High School Counselor of Health and Human Service's (HHS's) declaration that circumstances exist to justify the emergency use of in vitro diagnostics for the detection and/or diagnosis of the virus that causes COVID-19. This EUA will remain in effect (meaning this test can be used) for the duration of the COVID-19 declaration justifying emergency of IVDs, unless it is terminated or revoked by FDA (after which the test may no longer be used). When diagnostic testing is negative, the possibility of a false negative should be considered in the context of a patient's recent exposures and the presence of clinical signs and symptoms consistent with SARS-CoV-2. Performed By: #### C [facility] #### [facility] [address] [place] [address] Dr. Randall Ayoub Vital Signs Date Time Vital Sign Value Performing Clinician Facility 10-29-2023 06:05-0400 Body temperature 97.9 [degF] MD Donna Herrera Work Phone: [facility] 10-29-2023 06:05-0400 Diastolic blood pressure 74 mm[Hg] MD Donna Herrera Work Phone: [facility] 10-29-2023 06:05-0400 Heart rate 72 /min MD Donna Herrera Work Phone: [facility] 10-29-2023 06:05-0400 Respiratory rate 16 /min MD Donna Herrera Work Phone: [facility] 10-29-2023 06:05-0400 SaO2% (BldA) [Mass fraction] 98 % MD Donna Herrera Work Phone: [facility] 10-29-2023 06:05-0400 Systolic blood pressure 124 mm[Hg] MD Donna Herrera Work Phone: [facility] 10-28-2023 09:50-0400 Body height 172.72 cm MD Donna Herrera Work Phone: [facility] 10-27-2023 14:36-0400 Body weight 90 kg MD Donna Herrera Work Phone: [facility] 10-08-2023 13:45-0500 Body height 172.7 cm [facility] 10-08-2023 13:45-0500 Body mass index (BMI) [Ratio] 30.77 kg/m2 [facility] 5 [facility] 10-08-2023 13:45-0500 Body temperature 97.7 [degF] [facility] 5 [facility] 10-08-2023 13:45-0500 Body weight 91.8 kg [facility] 5 [facility] 10-08-2023 13:45-0500 Diastolic blood pressure 81 mm[Hg] [facility] 5 [facility] 10-08-2023 13:45-0500 Heart rate 74 /min [facility] 5 [facility] 10-08-2023 13:45-0500 Respiratory rate 18 /min [facility] 5 [facility] 10-08-2023 13:45-0500 SaO2% (BldA) [Mass fraction] 93 % [facility] 5 [facility] 10-08-2023 13:45-0500 Systolic blood pressure 125 mm[Hg] Metro 5 [facility] 09-23-2023 11:38-0500 Body height 172.7 cm Charles Lama INSURANCE ACCOUNT REPRESENTATIVE-TELEHEALTH DIRECTOR Work Phone: [facility] 09-23-2023 11:38-0500 Body mass index (BMI) [Ratio] 30.41 kg/m2 Charles Lama INSURANCE ACCOUNT REPRESENTATIVE-TELEHEALTH DIRECTOR Work Phone: [facility] 09-23-2023 11:38-0500 Body weight 90.72 kg Charles Lama INSURANCE ACCOUNT REPRESENTATIVE-TELEHEALTH DIRECTOR Work Phone: [facility] 09-02-2023 09:59-0500 Body height 172.7 cm Charles Lama INSURANCE ACCOUNT REPRESENTATIVE-TELEHEALTH DIRECTOR Work Phone: [facility] 09-02-2023 09:59-0500 Body mass index (BMI) [Ratio] 30.41 kg/m2 Charles Lama INSURANCE ACCOUNT REPRESENTATIVE-TELEHEALTH DIRECTOR Work Phone: [facility] 09-02-2023 09:59-0500 Body weight 90.72 kg Charles Lama INSURANCE ACCOUNT REPRESENTATIVE-TELEHEALTH DIRECTOR Work Phone: [facility] 09-02-2023 09:59-0500 Diastolic blood pressure 77 mm[Hg] Charles Lama INSURANCE ACCOUNT REPRESENTATIVE-TELEHEALTH DIRECTOR Work Phone: [facility] 09-02-2023 09:59-0500 Heart rate 74 /min Charles Lama INSURANCE ACCOUNT REPRESENTATIVE-TELEHEALTH DIRECTOR Work Phone: [facility] 09-02-2023 09:59-0500 Systolic blood pressure 115 mm[Hg] Charles Lama INSURANCE ACCOUNT REPRESENTATIVE-TELEHEALTH DIRECTOR Work Phone: [facility] 08-19-2023 13:20-0500 Body height 172.7 cm Xu Troy PA Work Phone: [facility] 08-19-2023 13:20-0500 Body mass index (BMI) [Ratio] 31.32 kg/m2 Xu Troy PA Work Phone: [facility] 08-19-2023 13:20-0500 Body weight 93.44 kg Xu Troy PA Work Phone: [facility] 08-19-2023 13:20-0500 Diastolic blood pressure 87 mm[Hg] Xu Troy PA Work Phone: [facility] 08-19-2023 13:20-0500 Heart rate 81 /min Xu Troy PA Work Phone: [facility] 08-19-2023 13:20-0500 Respiratory rate 18 /min Xu Troy PA Work Phone: [employer] 08-19-2023 13:20-0500 SaO2% (BldA) [Mass fraction] 98 % Xu PORRAS Work Phone: [employer] 08-19-2023 13:20-0500 Systolic blood pressure 142 mm[Hg] Xu PORRAS Work Phone: [employer] 05-25-2023 09:40-0400 Body height 175.26 cm Trino Cadet Other [employer] Other 05-25-2023 09:40-0400 Body mass index (BMI) [Ratio] 29.83 kg/m2 Trino Cadet Other [employer] Other 05-25-2023 09:40-0400 Body weight 91.63 kg Trino Cadet Other [employer] Other 09-15-2022 15:40-0500 Body height 175.26 cm Trino Cadet Other [employer] Other 09-15-2022 15:40-0500 Body mass index (BMI) [Ratio] 30.27 kg/m2 Trino Cadet Other [employer] Other 09-15-2022 15:40-0500 Body weight 92.99 kg Trino Cadet Other [employer] Other 09-15-2022 15:40-0500 Diastolic blood pressure 70 mm[Hg] Trino Cadet Other [employer] Other 09-15-2022 15:40-0500 Systolic blood pressure 116 mm[Hg] Trino Cadet Other [employer] Other 08-04-2022 12:20-0500 Body height 175.26 cm Trino Cadet Other [employer] Other 08-04-2022 12:20-0500 Body mass index (BMI) [Ratio] 30.27 kg/m2 Trino Cadet Other [employer] Other 08-04-2022 12:20-0500 Body weight 92.99 kg Trino Cadet Other [employer] Other 08-05-2021 12:20-0500 Body height 175.26 cm Trino Cadet Other [employer] Other 08-05-2021 12:20-0500 Body mass index (BMI) [Ratio] 30.27 kg/m2 Trino Cadet Other [employer] Other 08-05-2021 12:20-0500 Body weight 92.99 kg Trino Cadet Other [employer] Other Encounters Encounter Date Encounter Type Care Provider Facility Start: 11-16-2023 ambulatory Michel ROBBINS Facility :[facility] Start: 11-04-2023 End: 11-04-2023 ambulatory DARRELL Chu [facility] Start: 10-28-2023 Non-patient / Non-visit MD Marry Herrera Work Phone: [facility] Work Phone: Start: 10-27-2023 End: 10-29-2023 Evaluation and management of inpatient DONNA HERRERA [facility] Start: 10-27-2023 End: 10-29-2023 Evaluation and management of inpatient MD Donna Herrera Work Phone: [facility] Work Phone: Start: 10-23-2023 End: 10-27-2023 ambulatory MARVA AGUAYO [facility] Start: 10-22-2023 End: 10-27-2023 Evaluation and management of inpatient GLENDALE Vlad [facility] Start: 10-22-2023 End: 10-27-2023 Evaluation and management of inpatient [facility] Start: 10-08-2023 End: 10-08-2023 ambulatory GLENDALE Vlad [facility] Start: 10-08-2023 Telephone encounter Rad[facility]ustill[facility] Start: 10-08-2023 End: 10-08-2023 Patient encounter procedure [facility] Pat Provider 5 [facility] Comment on above: Spinal stenosis of l umbar region with neurogenic claudication Start: 10-07-2023 ambulatory Michel ROSENDO Facility:[facility] Start: 09-23-2023 End: 09-24-2023 ambulatory [facility] Start: 09-23-2023 Encounter for other preprocedural examination [facility] Start: 09-23-2023 End: 09-23-2023 ambulatory DONNA [facility] Start: 09-23-2023 Encounter for other preprocedural examination [facility] Start: 09-23-2023 End: 09-23-2023 Office outpatient new 60 minutes Charles Lama INSURANCE ACCOUNT REPRESENTATIVE-TELEHEALTH DIRECTOR Work Phone: [facility] Comment on above: Spinal stenosis of l umbar region with neurogenic claudication (Primary Dx); Pre-op testing; Radiculopathy, lumbar region Start: 09-23-2023 End: 09-23-2023 Patient encounter status Charles Kelby INSURANCE ACCOUNT REPRESENTATIVE-TELEHEALTH DIRECTOR Work Phone: [facility] Start: 09-16-2023 Refill Kathy Peñaloza CNA [facility] Comment on above: Disorder of sacrum Start: 09-09-2023 End: 09-10-2023 ambulatory [facility] Start: 09-02-2023 End: 09-03-2023 ambulatory [facility] Start: 09-02-2023 End: 09-02-2023 Office outpatient new 45 minutes Charles Lama INSURANCE ACCOUNT REPRESENTATIVE-TELEHEALTH DIRECTOR Work Phone: [facility] Comment on above: Spinal stenosis of l umbar region with neurogenic claudication (Primary Dx); History of lumbar fusion; Radiculopathy, lumbar region; Lumbar radiculopathy Start: 08-19-2023 End: 08-19-2023 [facility] Start: 08-19-2023 End: 08-19-2023 Office [facility] Work Phone: [facility] Comment on above: Spinal stenosis of l umbar region with neurogenic claudication (Primary Dx) Start: 08-18-2023 End: 08-18-2023 ambulatory FITZ CARRASQUILLO [facility] Start: 08-03-2023 End: 08-04-2023 ambulatory [facility] Start: 05-25-2023 End: 05-25-2023 ambulatory Trino Cadet Other [facility] [employer] Other Start: 05-25-2023 Office outpatient vi sit 15 minutes Trino Cadet [facility] Start: 05-24-2023 End: 05-24-2023 ambulatory Trino Cadet Facility:[facility] Start: 05-24-2023 End: 05-24-2023 ambulatory MD Donna Herrera Work Phone: [facility] Work Phone: Start: 05-24-2023 End: 05-24-2023 Patient encounter procedure MD Donna Herrera Work Phone: [facility] [place] Work Phone: Start: 09-15-2022 End: 09-15-2022 ambulatory Trino Cadet Other [facility] [employer] Other Start: 09-15-2022 Office outpatient vi sit 15 minutes Trino Cadet [facility] Start: 09-08-2022 Encounter for genera l adult medical examination without abnormal findings DR DONNA HERRERA [facility] Start: 09-03-2022 End: 09-04-[address] DONNA HERRERA Facility:[facility] Start: 09-03-2022 End: 09-04-2022 Encounter for general adult medical examination without abnormal findings DR DONNA HERRERA Facility:[facility] Start: 08-04-2022 End: 08-04-2022 ambulatory Trino Cadet Other [employer] Other Start: 08-04-2022 Office outpatient vi sit 15 minutes Trino Cadet [facility] Start: 02-03-2022 End: 02-03-[address] DONNA HERRERA Facility:[facility] Start: 02-03-2022 End: 02-03-[address] DONNA HERRERA Facility:[facility] Start: 01-01-2022 End: 01-01-[address] DONNA HERRERA Facility:[facility] Start: 08-05-2021 End: 08-05-2021 ambulatory Trino Cadet Other [employer] Other Start: 08-05-2021 Office outpatient vi sit 15 minutes Trino Cadet [facility] Procedures Date Procedure Procedure Detail Performing Clinician Start: 10-08-2023 Antibody screen [facility] 5 Start: 10-08-2023 Blood typing serologic abo Darrell Olsen MD Work Phone: Start: 10-08-2023 REPEATED ABORH Darrell Olsen MD Work Phone: Start: 10-08-2023 Basic metabolic pane l calcium total Darrell Olsen MD Work Phone: Start: 10-08-2023 Ecg routine ecg w/le ast 12 lds trcg only w/o i&r Darrell Olsen MD Work Phone: Start: 10-08-2023 Culture bacterial quanttative colony count urine Darrell Olsen MD Work Phone: Start: 10-08-2023 Urnls dip stick/tabl et rgnt auto w/o microscopy Darrell Olsen MD Work Phone: Start: 09-23-2023 Follow-up visit Follow-up ADRIACLOVER Vlad LAMA Start: 05-24-2023 X-ray of lumbar spin e, four views MD Donna Herrera Work Phone: Start: 09-03-[address] VINCENT HERRERA Comment on above: Performed By: #### P [facility] #### [facility] [address] [place] [address] Dr. Randall Ayoub History of repair of musculotendinous cuff of shoulder [employer]ino Cadet Other Plan of Treatment Date Care Activity Detail Author Start: 01-01-2032 DTaP,Tdap and Td Vaccines (3 - Td or Tdap) DTaP,Tdap and Td Vaccines (3 - Td or Tdap) [facility] Start: 09-23-2024 Adult BMI Screening Adult BMI Screen ing [facility] Start: 09-23-2024 Tobacco Screening Tobacco Screening [facility] Start: 09-02-2024 Adult BMI Screening Adult BMI Screen ing [facility] Start: 09-02-2024 Tobacco Screening Tobacco Screening [facility] Start: 08-19-2024 Adult BMI Screening Adult BMI Screen ing [facility] Start: 08-19-2024 Tobacco Screening Tobacco Screening [facility] Start: 12-02-2023 End: 12-02-2023 Patient encounter procedure 12/02/2023 3:00 PM EDT Office Visit [facility] [address] [place] [phone] Darrell Olsen MD [address] [place] [address] [address] [place] [phone] [facility] Start: 10-29-2023 [facility] Start: 10-27-2023 Hospital admission [facility] Start: 10-27-2023 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 [facility] Start: 10-22-2023 End: 10-22-2023 Admission to same day surgery center 10/22/2023 7:30 AM EST - 10/22/2023 9:15 AM EST Surgery [facility] [address] [place] [phone] Darrell Olsen MD [address] [place] [address] [address] [place] [phone] LAMINECTOMY LUMBAR SINGLE LEVEL / L1-L2 [facility] Comment on above: LAMINECTOMY LUMBAR S RICHMOND LEVEL / L1-L2 Start: 10-22-2023 End: 10-22-2023 LAMINECTOMY LUMBAR SINGLE LEVEL LAMINECTOMY LUMBAR SINGLE LEVEL Spinal stenosis of lumbar region with neurogenic claudication 10/22/2023 7:30 AM EST [facility] Start: 10-22-2023 Subsequent hospital visit by physician 10/22/2023 7:30 AM EST Hospital Encounter [facility] [address] [place] [phone] Darrell Olsen MD [address] [place] [address] [address] [place] [phone] [facility] Start: 10-08-2023 End: 10-08-2023 Patient encounter procedure 10/08/2023 1:15 PM EST Procedure visit [facility] [address] [phone] [facility] Start: 09-23-2023 End: 09-23-2023 Patient encounter procedure 09/23/2023 11:50 AM EST Office Visit [facility] [address] [place] [phone] Darrell Olsen MD [address] [place] [address] [address] [place] [phone] [facility] Start: 09-02-2023 End: 09-02-2024 XR Lumbar spine Views AP W right bending and W left bending [facility] Work Phone: Comment on above: Expected: 09/02/2023 , Expires: 09/02/2024 Start: 09-02-2023 End: 09-02-2023 Patient encounter procedure 09/02/2023 10:15 AM EST Office Visit [facility] [place] [phone] Darrell Olsen MD [address] [facility] [address] [place] [phone] [facility] Start: 1987 Adult BMI Follow Up Plan Adult [facility] Start: 1981 Depression Screening [facility] End: 09-01-2024 CT Lumbar spine WO contrast CT lumbar spine without contrast Imaging Routine Spinal stenosis of lumbar region with neurogenic claudication History of lumbar fusion Radiculopathy, lumbar region Lumbar radiculopathy 1 Occurrences starting 09/02/2023 until 09/01/2024 [employer] Comment on above: 1 Occurrences starti ng 09/02/2023 until 09/01/2024 Patient Education Spinal Stenosi s (DC) Spinal Fusion (DC) [facility] Work Phone: Patient referral [facility] Work Phone: Payers Date Payer Category Payer Medicare [id number] 2023 Unknown [employer]AGE [id number] 2023-Present [phone] [address] [place] [address] [id number] 2023 Self-pay [id number] 1969 Unknown [id number] 2.16.840.1.404812.3.579.2 .593 1969 Unknown [id number] 2.16.840.1.715883.3.579.2 .593 1969 Unknown [id number] 2.16.840.1.522623.3.579.2 .593 1969 Unknown [id number] 2.16.840.1.682717.3.579.2 .593 1969 Unknown [id number] 2.16.840.1.544918.3.579.2 .1286 1969 Unknown [id number] 2.16.840.1.725135.3.579.2 .1285 1969 Unknown [id number] 2.16.840.1.579350.3.579.2 .1285 1969 Unknown [id number] 2.16.840.1.429545.3.579.2 .1285 1969 Unknown [id number] 2.16.840.1.657937.3.579.2 .1285 1969 Unknown [id number] 2.16.840.1.772137.3.579.2 .1285 1969 Unknown [id number] 2.16.840.1.895616.3.579.2 .1285 1969 Unknown [id number] 2.16.840.1.076495.3.579.2 .1285 1969 Unknown [id number] 2.16.840.1.482005.3.579.2 .1285 1969 Unknown [id number] 2.16.840.1.849432.3.579.2 .1285 1969 Unknown [id number] 2.16.840.1.880958.3.579.2 .1285 1969 Unknown [id number] 2.16.840.1.196443.3.579.2 .1285 1969 Unknown [id number] 2.16.840.1.204337.3.579.2 .1285 1969 Unknown [id number] 2.16.840.1.988536.3.579.2 .1286 1969 Unknown [id number] 2.16.840.1.122060.3.579.2 .1286 1969 Unknown [id number] 2.16.840.1.126169.3.579.2 .727 1959 Unknown [id number] Private Health Insurance [id number] 2.16.840.1.039421.19 Unknown [id number] 2.16.840.1.878152.3.579.2 .531 Unknown [id number] 2.16.840.1.208775.3.579.2 .531 Social History Date Type Detail Facility Start: 09-26-2020 End: 08-19-2023 Sex Assigned At [facility] Start: 05-29-2020 End: 10-28-2023 Tobacco smoking status NHIS Never smoked tobacco (finding) [facility] Start: 1970 Sex Assigned At Male F [facility] Start: 06-04-2022 End: 10-08-2023 Tobacco use and exposure Former smokeless tobacco user [facility] Start: 08-19-2023 End: 10-08-2023 Alcohol intake Ex-drinker (finding) [facility] Start: 09-26-2020 End: 08-19-2023 History of Social function [facility] Housing Instability Unknown [facility] Start: 01-24-2018 Alcohol Comment stopped 18 months ag o [facility] Start: 1970 Sex Assigned At Not on file P [facility] End: 08-16-1996 History of tobacco use Chews Tobacco [facility] Medical Equipment Procedure Code Equipment Code Equipment Origin al Text Equipment Identifier Dates Fusion, spine, lumbar, XLIF CANCELLOUS 7.5 CRUSHED FDA Start: 05-29-2020 Fusion, spine, lumbar, XLIF Bone-screw internal spinal fixation system, non-sterile [id number] FDA Start: 05-29-2020 Fusion, spine, lumbar, XLIF CANCELLOUS COARSE 7.5CC FDA Start: 05-29-2020 Fusion, spine, lumbar, XLIF Orthopaedic bone screw, non-bioabsorbable, non-sterile [id number] FDA Start: 05-29-2020 Fusion, spine, lumbar, XLIF Orthopaedic bone screw, non-bioabsorbable, non-sterile [id number] FDA Start: 05-29-2020 Fusion, spine, lumbar, XLIF STRATOFUSE DBM 10CC FDA Start: 05-29-2020 Fusion, spine, lumbar, XLIF Bone-screw internal spinal fixation system, non-sterile [id number] FDA Start: 05-29-2020 Fusion, spine, lumbar, XLIF Bone-screw internal spinal fixation system, non-sterile [id number] FDA Start: 05-29-2020 Fusion, spine, lumbar, XLIF STRATOFUSE DBM 5CC FDA Start: 05-29-2020 Fusion, spine, lumbar, XLIF Spinal fusion graft kit [id number] FDA Start: 05-29-2020 Fusion, spine, lumbar, XLIF Metallic spinal fusion cage, non-sterile [id number] FDA Start: 05-29-2020 Fusion, spine, lumbar, XLIF Metallic spinal fusion cage, non-sterile [id number] FDA Start: 05-29-2020 Fusion, spine, lumbar, XLIF Polymeric spinal interbody fusion cage [id number] FDA Start: 05-29-2020 Fusion, spine, lumbar, XLIF CANCELLOUS 7.5 CRUSHED FDA Start: 05-29-2020 Fusion, spine, lumbar, XLIF CANCELLOUS COARSE 7.5CC FDA Start: 05-29-2020 Fusion, spine, lumbar, XLIF STRATOFUSE DBM 10CC FDA Start: 05-29-2020 Fusion, spine, lumbar, XLIF STRATOFUSE DBM 5CC FDA Start: 05-29-2020 Milton Agee Ea=Bill-Only - [id number] - [id number] Start: 06-07-2018 Goals Date Patient Goal Desired Activity /State Functional Status Date Assessment Result Facility 10-27-2023 Functional status Patient Not at Baseline [facility] Work Phone: Mental Status Date Assessment Result Facility 10-27-2023 Cognitive function Cognitive Sta tus Patient Not at Baseline [facility] Work Phone: Clinical Notes 06-07-2018 to 10-28-2023 Note Date & Type Note Facility 10-28-2023 History and physi brigido note Note Date/Time October 28, 2023 10:24am [facility] [address] [place] [address] Physiatry (Rehab) H&P Signed Patient: Celestino Peñaloza MR#: [id number] : 1970 Acct:[id number] Age/Sex: 53 / M Adm Date: 4 Loc: Room: [address] [place] [address] Type: ADM IN Attending Dr: Qasim Mancilla MD Copies to: MD Donna Mcmanus MD~ Date of Service: 10/28/2023 HPI History of Present Illness: Mr. Peñaloza is a 53 year old male with past medical history of lumbar spinal stenosis with neurogenic claudication who presented to [facility] on 10/21 for elective L1-L2 decompressive laminectomy and partial medial facetectomy withL1-2 fusion after failed conservative treatment. Post operatively patient had severe pain in back and down legs. STAT MRI was done and demonstrated no significant compressive hematoma. Patient pain progressively improved and he wasdischarged to inpatient rehab. Patient lives with his spouse in a 1 story home with 3 MIKEY. Previously independent. Patient was seen and evaluated at bedside at bedside. Sitting comfortably in recliner. Appears in no distress today. Patient doing quite well. Denies significant pain today. Tolerating therapy well already. Already mostly independent. Patient hopeful to go home soon. [facility] Medical History (Updated 10/28/23 @ 12:47 by Qasim Mancilla MD) Lumbar spinal stenosis History of ETOH abuse sober since 2016 Problem List clean-up per request of Phys. EHR Cmte Asthma Problem List clean-up per request of Phys. EHR Cmte DDD (degenerative disc disease) Problem List clean-up per request of Phys. EHR Cmte Anxiety Problem List clean-up per request of Phys. EHR Cmte Surgical History (Updated 10/28/23 @ 12:47 by Qasim Mancilla MD) History of selective injection of anesthetic agent around lumbar nerve root Problem List clean-up per request of Phys. EHR Cmte Hx of LASIK Problem List clean-up per request of Phys. EHR Cmte History of repair of rotator cuff left shoulder Problem List clean-up per request of Phys. EHR Cmte Family History Father Hypertension Mother Diabetes mellitus, type 2 Father Diabetes mellitus, type 2 Father Hypertension Mother Diabetes Social History Smoking Status: Never smoker Substance Use Type: Marijuana Substance Abuse Comment: sober since 2016 Review of Systems Review of Systems All other systems reviewed & are negative unless noted below or in HPI Meds Medications and Allergies Allergies No Known Allergies Allergy (Verified 05/29/20 05:55) Home and Active Meds: Home Medications aspirin 81 mg tablet,delayed release 81 mg PO QHS 05/22/20 [History Confirmed 10/27/23] budesonide-formoterol HFA 160 mcg-4.5 mcg/actuation aerosol inhaler (Symbicort) 2 inh inhalation BID 05/22/20 [History Confirmed 10/27/23] cetirizine 10 mg tablet 10 mg PO DAILY 05/22/20 [History Confirmed 10/27/23] fluoxetine 40 mg capsule 40 mg PO QAM 05/22/20 [History Confirmed 10/27/23] multivitamin 1 tab PO QNOON 05/22/20 [History Confirmed 10/27/23] albuterol sulfate 90 mcg/actuation aerosol inhaler (ProAir HFA) 2 inh [id number] PRN shortness of breath or wheezing 10/27/23 [History Confirmed 10/27/23] cyclobenzaprine 10 mg tablet 5 mg PO TID PRN back spasms 10/27/23 [History Confirmed 10/27/23] dexamethasone 2 mg tablet 2 mg PO Q8HR 10/27/23 [History Confirmed 10/27/23] diazepam 2 mg tablet 2 mg PO Q6HR PRN anxiety 10/27/23 [History Confirmed 10/27/23] famotidine 20 mg tablet 20 mg PO BID 10/27/23 [History Confirmed 10/27/23] gabapentin 800 mg tablet 800 mg PO TID 10/27/23 [History Confirmed 10/27/23] liothyronine 5 mcg tablet 5 mcg PO DAILY 10/27/23 [History Confirmed 10/27/23] naloxone 4 mg/actuation nasal spray 1 spray intranasal Q3M PRN opioid overdose 10/27/23 [History Confirmed 10/27/23] oxycodone 5 mg capsule 5 mg PO Q4HR PRN pain 10/27/23 [History Confirmed 10/27/23] Active Medications Acetaminophen (Acetaminophen 500 Mg Tablet) 500 mg PO Q4H PRN PRN Reason: Pain Stop: 10/26/24 14:24 Last Admin: 10/27/23 17:54 Dose: 500 mg Al Hydrox/Mg Hydrox/Simethicone (Mag Hydrox/Al Hydrox/Simeth 30 Ml Udc) 30 ml PO Q4H PRN PRN Reason: Indigestion Stop: 10/26/24 14:24 Albuterol (Albuterol Hfa 60 Puff/8 Gram Inhaler) 2 puff INHALATION Q4HR PRN PRN Reason: shortness of breath or wheezing Stop: 10/26/24 15:02 Aspirin (Aspirin 81 Mg Tablet.Dr) 81 mg PO QHS KYARA Stop: 10/29/24 08:59 Bisacodyl (Bisacodyl 10 Mg Supp.Rect) 10 mg IL DAILY PRN PRN Reason: Constipation Stop: 10/26/24 14:24 Budesonide/Formoterol Fumarate (Budesonide/Formoterol 160-4.5 Mcg 60 Puff/6 Gm Hfa.Aer.Ad) 2 puff INHALATION BID KYARA Stop: 10/26/24 20:59 Last Admin: 10/28/23 05:56 Dose: 2 puff Cyclobenzaprine HCl (Cyclobenzaprine 5 Mg Tablet) 5 mg PO TID PRN PRN Reason: back spasms Stop: 10/26/24 15:02 Dexamethasone (Dexamethasone 2 Mg Tablet) 2 mg PO Q8H KYARA; Taper Stop: 11/06/23 21:59 Last Admin: 10/28/23 06:32 Dose: 2 mg Diazepam (Diazepam 2 Mg Tablet) 2 mg PO Q6HR PRN PRN Reason: anxiety Stop: 04/24/24 15:02 Docusate Sodium (Docusate 100 Mg Capsule) 100 mg PO BID PRN PRN Reason: Constipation Stop: 10/26/24 14:24 Docusate Sodium (Docusate Enema 283 Mg/5 Ml Enema) 283 mg IL DAILY PRN PRN Reason: Constipation Stop: 10/26/24 14:24 Famotidine (Famotidine 20 Mg Tablet) 20 mg PO BID [facility] Stop: 10/26/24 20:59 Last Admin: 10/28/23 09:25 Dose: 20 mg Fluoxetine HCl (Fluoxetine 20 Mg Capsule) 40 mg PO QAM [facility] Stop: 10/27/24 08:59 Last Admin: 10/28/23 09:25 Dose: 40 mg Gabapentin (Gabapentin 800 Mg Tablet) 800 mg PO TID [facility] Stop: 10/26/24 21:59 Last Admin: 10/28/23 09:25 Dose: 800 mg Heparin Sodium (Porcine) (Heparin 5,000 Unit/Ml Vial) 5,000 unit SUBCUT Q8HR [facility] Stop: 10/28/24 21:59 Lactulose (Lactulose 20 Gm/30 Ml Udc) 30 gm PO DAILY PRN PRN Reason: Constipation Stop: 10/26/24 14:24 Liothyronine Sodium (Liothyronine 5 Mcg Tablet) 5 mcg PO DAILY [facility] Stop: 10/27/24 08:59 Last Admin: 10/28/23 09:25 Dose: 5 mcg Loratadine (Loratadine 10 Mg Tablet) 10 mg PO DAILY [facility] Stop: 10/27/24 08:59 Last Admin: 10/28/23 09:25 Dose: 10 mg Multivitamins (Multivitamin 1 Tab Tablet) 1 tab PO DAILY@1200 [facility] Stop: 10/27/24 11:59 Oxycodone HCl (Oxycodone Ir 5 Mg Tablet) 5 mg PO Q4HR PRN PRN Reason: pain Sennosides (Sennosides 8.6 Mg Tablet) 2 tab PO DAILY@12 PRN PRN Reason: If no BM in 2 days Stop: 10/27/24 11:59 Sodium Chloride (Sodium Chloride 0.9 % 10 Ml Syringe) 0 ml IV-PUSH PRN PRN PRN Reason: Flush Stop: 10/26/24 14:24 Exam Physical Exam Vital Signs: Temp Pulse Resp BP Pulse Ox O2 Del Method 97.8 F 72 16 124/72 98 Room Air 10/28/23 06:30 10/28/23 06:30 10/28/23 06:30 10/28/23 06:30 10/28/23 06:30 10/28/23 09:25 Narrative: General: Awake, A&O x 3, pleasant, cooperative, well nourished. Resting comfortably in recliner HENT: NC, AT Eyes: No scleral icterus Neck: Supple Cardio: RRR, no murmurs, rubs or gallops. Extremities well perfused Respiratory: CTAB, no wheezes rhonchi or rales. No evidence of respiratory distress GI: Soft, nontender, nondistended Neuro: CN II-XII intact. Strength 5/5 right upper and lower extremities. Strength 5/5 left upper and lower extremities.Moves all extremities spontaneously. Sensation intact bilateral lower extremities. Extremities: No edema, erythema, cyanosis Psych: Affect, speech and movements normal. Mood congruent Results - Phys. Rehab Labs Labs: Laboratory Results - last 24 hr 10/28/23 04:54 Corrected WBC 7.4 Uncorrected WBC Count 7.4 RBC 4.12 Hgb 12.7 L Hct 38.3 L MCV 93.0 MCH 30.9 MCHC 33.3 RDW 13.4 Plt Count 227 MPV 8.7 Neut % (Auto) 61.0 Lymph % (Auto) 28.7 Bibb % (Auto) 9.6 Eos % (Auto) 0.4 Baso % (Auto) 0.3 Nucleat RBC Rel Count 0.1 Neut # (Auto) 4.5 Lymph # (Auto) 2.1 Bibb # (Auto) 0.7 Eos # (Auto) 0.0 Baso # (Auto) 0.0 PHA Creatinine Clear 103.39 Sodium 141 Potassium 4.4 Chloride 106 Carbon Dioxide 27.8 Anion Gap 11.6 BUN 26 H Creatinine 0.89 Est GFR (CKD-EPI) > 60.0 Glucose 109 H Calcium 8.8 Total Bilirubin 0.5 AST 7 L ALT 7 Alkaline Phosphatase 57 Total Protein 6.2 L Albumin 3.9 Globulin 2.3 Albumin/Globulin Ratio 1.7 Prealbumin 25.1 Individualized Plan of Care Individualized Plan of Care Plan of Care: Individualized Overall Plan of Care: Admit Date/Time: 10/27/23 Expected LOS: 7 Days Expected Discharge Destination: Home Rehabilitation IGC: 3.9 Primary Diagnosis: as above Patient?s/Family?s anticipated outcomes/personal goals: To have patient become more independent and to return home. Medical/ Functional Prognosis: Good Anticipated Functional Outcomes/Goals and Interventions: -Therapy Functional Outcome/Goal: Mobility/Locomotion: Patient likely to be independent with ambulation with assistive device. Anticipated interventions: Physician management, PT, OT, Dietitian, Rehab Nursing - Therapy Functional Outcome/Goal: Self Care: Patient likely to be functionally independent for activities of daily living using assistive / adaptive equipment as needed. Anticipated interventions: Physician management, PT, OT, Dietitian, Rehab Nursing - Therapy Functional Outcome/Goal: Bladder/Bowel Management: Patient likely to be independent with bladder care and independent with bowel care. Anticipated interventions: Physician management, PT, OT, Dietitian, Rehab Nursing -Therapy Functional Outcome/Goal: Communication/Cognition: Patient will be able to communicate fully and be safe cognitively. Anticipated interventions: Physician management, PT, OT, Dietitian, Rehab Nursing -Therapy Functional Outcome/Goal: Patient will be independent for bed mobility and transfers Anticipated interventions: Physician management, PT, OT, Dietitian, Rehab Nursing -Therapy Functional Outcome/Goal: Patient will improve endurance to be able to tolerate all daily self care activities and avocational activities. Anticipated interventions: Physician management, PT, OT, Nutrition, Rehab Nursing -Therapy Functional Outcome/Goal: Patient will understand and assimilate / integrate education regarding management of their medical conditions to maintainhealth and wellbeing. Anticipated interventions: Physician management, PT, OT, Dietitian, Rehab Nursing Required Therapy PT: 1.5 hour per day at least 5 days per week with additional therapy on as needed basis. Comments: PT to improve pt's strength, endurance, bed mobility, transfers (sit-stand), standing balance, gait quality on level surfaces and stairs, coordination and functional ADL skills. Will also work to improve pt's safety awareness during transfers and ambulation. OT: 1.5 hour per day at least 5 days per week with additional therapy on as needed basis. Comments: OT for basic ADL re-training (bathing, dressing, toileting, continence, grooming, feeding, transferring), to increase activity tolerance and functional mobility and to evaluate for adaptive and assistive devices. Will work to improve pt's endurance and educate pt on fall prevention and energy conservation techniques-pacing strategies and proper breathing techniques duringfunctional tasks. Other: Nutrition, Rehab nursing, Wound, P&O RATIONALE FOR IRF ADMISSION: Patient has both medical and functional complexities that require 24 hour daily monitoring and intervention from Retail Merchandising Coordinator as well as other consulting physicians including internal medicine as well as 24 hour daily chemist enzymes nursing - for medical safe / optimal management. Patient requires interdisciplinary therapy team rehabilitation care including OT, PT, SW, Rehab Nursing, requires and can tolerate at least 3 hoursof daily OT and PT therapy at least 5 days weekly. The following medical conditions significantly impact the rehabilitation process and are being addressed daily and can not be managed at home or in a lesser intense medical setting: Refer to above problem oriented plan of care Assessment/Plan (1) Lumbar spinal stenosis: (2) S/P lumbar fusion: (3) Post-operative pain: (4) Impaired mobility and activities of daily living: Plan This is a 53-year-old male with who presents to [facility] IRF due to functional decline in the setting of lumbar spinal stenosis with neurogenic claudication s/p L1-L2 decompression and fusion. He has continued impaired mobility and impaired independence with ADLs and IADLs requiring PT/OT 5-7 days/week 3 hours/day to maximize safety and independence with functional ability and self-care. #. Lumbars spinal stenosis with neurogenic claudcation s/p L1-L2 decompression and fusion -PT to improve patient's strength, endurance, bed mobility, transfers (sit-stand), standing balance, gait quality on level surfaces and stairs, coordination and functional ADL skills. We will also work to improve patient's safety awareness during transfers and ambulation. -OT for basic ADL retraining (bathing, dressing, toileting, continence, grooming, feeding, transferring), to increase activity tolerance and functional mobility to evaluate for adaptive assistive device. We will work to improve patient's endurance and educate patient on fall prevention and energy conservation techniques-pacing strategies and proper breathing techniques duringfunctional tasks. -Patient education -Pressure ulcer prophylaxis; encourage mobilization, frequent postural changes, pressure-relief techniques -DVT prophylaxis -Encourage deep breathing exercise incentive spirometry. -Monitor bladder. Toileting schedule. Continue current bladder management, with scans as needed and CIC if needed. Start bowel care program every day to obtain continence, prevent ileus. -Maintain fall precautions -Gait and balance retraining -Provision of the necessary gait aids and functional adaptive equipment to enhance the patient's a functional evangelical -Encourage deep breathing exercises and incentive spirometry -RD evaluation -Ensure adequate nutrition and hydration -Discharge planning. #. H/o Anxiety-stable -Continue Prozac, Valium PRN Hospitalist to assist with management of comorbid medical conditions #. Pain control: Tylenol PRN, Oxycodone 5 mg q4hr PRN, Flexeril 5 mg TID PRN, Dexamethasone taper, Gabapentin 800 mg TID #. Bowel and bladder: Continent of Bowel/bladder #. Skin: (pressure ulcer/surgical site) No pressure injuries on admission. Monitor surgical incision #. Sleep: Optimize sleep/wake cycle DVT prophylaxis: SCDs. Hold DVT ppx per discharge instructions Functional status: Impaired. Limited by pain, weakness Discharge planning: Patient presents nearly functionally independent. Likely discharge home in a few days Patient was personally seen by me, Dr. Mancilla, on the day of encounter, reviewed the history and the relevant portions of the chart, including current orders, allied health and clinical practice consultant notes, labs/imaging and performed butt elements of exam and I formulated the plan of care and facilitated the medical decision making. I completed a substantive portion of this encounter, the medical decision makingportion of this note in its entirety, including Allied health note review, nursing note review, clinical practice consultant note review, discussion with nursing and case management, and more than 50% of my time was spent on counseling and coordination of care, time spent 75 minutes Documented By: Qasim Mancilla MD [id number] Signed By: <Electronically signed by Qasim Mancilla MD> 10/28/23 [id number] [facility] Work Phone: [phone]) 787-414102-23-2024 Miscellaneous Notes* Telephone Encounter - Radha Bustillos RN - 10/08/2023 4:01 PM EST PTT of 40 called from lab. 10/22/23 LAMINECTOMY LUMBAR SINGLE LEVEL / L1-L2 [facility] [id number] Telephone encounter Note* Telephone Encounter - Radha Bustillos RN - 10/08/2023 4:01 PM EST PTT of 40 called from lab. 3/8/24 LAMINECTOMY LUMBAR SINGLE LEVEL / L1-L2 [facility] [id number] History and physical note* Beata Lee Eulalia, INSURANCE ACCOUNT REPRESENTATIVE-TELEHEALTH DIRECTOR - 10/08/2023 1:15 PM EST PRE-ADMISSION TESTING HISTORY AND PHYSICAL EXAM DATE: 10/08/23 PCP: DONNA HERRERA MD CHIEF COMPLAINT: Spinal stenosis of lumbar region with neurogenic claudication HISTORY OF PRESENT ILLNESS: Celestino Peñaloza, a 53 y.o. White or male, presents to [facility] for a pre-surgical H&P. The patient has been diagnosed with spinal stenosis of lumbar region with neurogenic claudication. He reports he has dealt with back pain since he was young, but it has gradually gotten worse. 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 He rates his pain at 1/10 but can increase to a 9/10. The pain is mid-back and shooting in nature. It does extend down his right leg into his foot. The pain awakens him at night. Denies bowel or bladder complaints. He has tried physical therapy which made the pain worse. He has done multiple TFESIs which were effective initially but are no longer providing optimal benefit. Diclofenac and gabapentin do take the edge off. MRI lumbar spine 08/03/23 impression: Surgical spinal fusion from L2 to S1 with postsurgical change. No hardware complications are seen. Disc bulging at L5-S1. No evidence of significant central canal narrowing or narrowing of the neuralforamina at the levels of the fusion. Severe degenerative arthritis in the lower thoracic and lumbar spine with severe changes at L1-L2. Associated disc bulging is seen at multiple levels. Various degrees of spinal stenosis and narrowingof the neural foramina in the lower thoracic and upper lumbar region has described above. Retrolisthesis at L1-L2. There has been further progression of the degenerative arthritis since prior examination of 01/03/2021. Anesthesia problems: Pt denies. Bleeding/ clotting disorders: Pt denies. Recent hospitalizations: Pt denies. PAST MEDICAL HISTORY: Past Medical History: Diagnosis Date Alcoholism ([facility]) Anemia Asthma Back pain Chronic pain disorder Cough Environmental allergies Hypertension history of this, not currently treated Hypothyroidism Low back pain Neck pain Spinal stenosis of lumbar region with neurogenic claudication Visual impairment lasik PAST SURGICAL HISTORY: Past Surgical History: Procedure Laterality Date ARTHROSCOPY REPAIR LESION SUPERIOR LABRUM EXTENDING FROM ANTERIOR TO POSTERIOR (SLAP) SHOULDER Left06/07/2018 Performed by Jr Christian Estrada DO at [facility] ARTHROSCOPY REPAIR ROTATOR CUFF SHOULDER Left 06/07/2018 Performed by Jr Chrsitian Estrada DO at [facility] ARTHROSCOPY SHOULDER Left 06/07/2018 Performed by Jr Christian Estrada DO at [facility] INJECTION BLOCK SACROILIAC JOINT Bilateral 06/04/2023 Performed by Dave Garcia MD at [facility] INJECTION BLOCK SACROILIAC JOINT Bilateral 03/19/2023 Performed by Dave Garcia MD at [facility] INJECTION BLOCK SACROILIAC JOINT Bilateral 01/15/2023 Performed by Dave Garcia MD at [facility] INJECTION BLOCK SACROILIAC JOINT Bilateral 09/04/2022 Performed by Dave Garcia MD at [facility] INJECTION BLOCK SACROILIAC JOINT Right 05/22/2022 Performed by Dave Garcia MD at [facility] INJECTION BLOCK SACROILIAC JOINT Bilateral 02/20/2022 Performed by Dave Garcia MD at [facility] INJECTION BLOCK SACROILIAC JOINT Bilateral 10/20/2021 Performed by Dave Garcia MD at [facility] INJECTION BLOCK SACROILIAC JOINT Bilateral 12/13/2020 Performed by Dave Garcia MD at [facility] INJECTION BURSA LARGE JOINT Right hip intra-articular Right 02/21/2021 Performed by Dave Garcia MD at [facility] INJECTION BURSA LARGE JOINT: right hip Right 03/27/2022 Performed by Dave Garcia MD at [facility] INJECTION CAUDAL EPIDURAL WITH CATHETER, STEROID N/A 02/23/2020 Performed by Dave Garcia MD at [facility] INJECTION CAUDAL EPIDURAL WITH CATHETER, STEROID N/A 01/15/2020 Performed by Dave Garcia MD at [facility] INJECTION CAUDAL EPIDURAL WITH CATHETER, STEROID N/A 06/23/2019 Performed by Dave Garcia MD at [facility] INJECTION CAUDAL EPIDURAL WITH CATHETER, STEROID N/A 05/05/2019 Performed by Dave Garcia MD at [facility] INJECTION CAUDAL EPIDURAL WITH CATHETER, STEROID N/A 08/12/2018 Performed by Dave Garcia MD at [facility] INJECTION CAUDAL EPIDURAL WITH CATHETER, STEROID 1 of 2 N/A 01/28/2018 Performed by Dave Garcia MD at [facility] INJECTION CAUDAL EPIDURAL WITH CATHETER, STEROID 2 of 2 N/A 02/11/2018 Performed by Dave Garcia MD at [facility] SPINE TRANSFORAMINAL Left L 1,2 Nroot Left 01/24/2021 Performed by Dave Garcia MD at [facility] INJECTION SPINE TRANSFORAMINAL: left L 1,2 nroot Left 04/17/2022 Performed by Dave Garcia MD at [facility] SPINE TRANSFORAMINAL: right L 1,2 nroot Right 04/16/2023 Performed by Dave Garcia MD at [facility] LUMBAR FUSION 2020 L2-S1 REFRACTIVE SURGERY Bilateral FAMILY HISTORY: Family History Problem Relation Age of Onset Heart disease Mother Diabetes Mother Back Problems Father Alcohol abuse Father Cirrhosis Father Anesthesia problems Neg Hx SOCIAL HISTORY: The patient reports that he does not currently use alcohol. He reports that he has never smoked. He quit smokeless tobacco use about 27 years ago. His smokeless tobacco use included chew. He reports current drug use. Frequency: 7.00 times per week. Drugs: Marijuana and Medical Marijuana. ALLERGIES: No Known Allergies MEDICATIONS: Current Outpatient Medications: aspirin 81 mg, Take 1 tablet (81 mg total) by mouth in the morning., Disp: , Rfl: cetirizine (ZyrTEC) 10 MG chewable tablet, Chew 1 tablet (10 mg total) and swallow in the morning.,Disp: , Rfl: diazePAM (VALIUM) 2 mg tablet, Take 1 tablet (2 mg total) by mouth every 6 (six) hours as needed for anxiety., Disp: , Rfl: diclofenac (VOLTAREN) 75 mg EC tablet, Take 1 tablet (75 mg total) by mouth in the morning and 1 tablet (75 mg total) before bedtime., Disp: 60 tablet, Rfl: 5 FLUoxetine (PROzac) 40 MG capsule, Take 1 capsule (40 mg total) by mouth in the morning., Disp: , Rfl: gabapentin (NEURONTIN) 800 mg tablet, Take 1 tablet (800 mg total) by mouth 3 (three) times a day.,Disp: 90 tablet, Rfl: 1 levothyroxine (SYNTHROID, LEVOTHROID) 25 MCG tablet, Take 1 tablet (25 mcg total) by mouth in the morning. Indications: a condition with low thyroid hormone levels., Disp: , Rfl: multivitamin capsule, Take 1 capsule by mouth in the morning., Disp: , Rfl: SYMBICORT 160-4.5 mcg/actuation inhaler, Inhale 2 puffs in the morning and 2 puffs before bedtime.,Disp: , Rfl: 1 VENTOLIN HFA 90 mcg/actuation inhaler, Inhale 2 puffs every 4 (four) hours as needed., Disp: , Rfl: REVIEW OF SYSTEMS: Review of Systems Constitutional: Negative for fever, activity change and appetite change. HENT: Negative for dental problem, ear pain, rhinorrhea and sore throat. Respiratory: Negative for apnea, cough, chest tightness and shortness of breath. Cardiovascular: Negative for chest pain and palpitations. Gastrointestinal: Negative for nausea, vomiting, diarrhea and constipation. Genitourinary: Negative for dysuria, urgency, frequency, hematuria and difficulty urinating. Musculoskeletal: Positive for myalgias, back pain, arthralgias and gait problem. Skin: Negative for rash and wound. Neurological: Negative for dizziness, seizures, syncope, light-headedness and numbness. Psychiatric/Behavioral: Negative for sleep disturbance. The patient is not nervous/anxious. VITAL SIGNS: BP 125/81 Pulse 74 Temp 36.5 C (97.7 F) (Temporal) Resp 18 Ht 172.7 cm (5' 8 ) Wt 91.8 kg (202 lb 6.1 oz) SpO2 93% BMI 30.77 kg/m PHYSICAL EXAM: Physical Exam Constitutional: Appearance: Normal appearance. HENT: Head: Normocephalic and atraumatic. Mouth/Throat: Mouth: Mucous membranes are moist. Eyes: Pupils: Pupils are equal, round, and reactive to light. Cardiovascular: Rate and Rhythm: Normal rate and regular rhythm. Pulses: Normal pulses. Heart sounds: Normal heart sounds. No murmur heard. Pulmonary: Effort: Pulmonary effort is normal. Breath sounds: Normal breath sounds. No wheezing. Abdominal: General: Abdomen is flat. Bowel sounds are normal. There is no distension. Palpations: Abdomen is soft. Tenderness: There is no abdominal tenderness. Musculoskeletal: Cervical back: Neck supple. Lymphadenopathy: Cervical: No cervical adenopathy. Skin: General: Skin is warm and dry. Findings: No rash. Neurological: General: No focal deficit present. Mental Status: He is alert and oriented to person, place, and time. Psychiatric: Mood and Affect: Mood normal. RECENT LABS: Lab Results Component Value Date WBC 5.7 05/01/2020 HGB 13.7 05/01/2020 HCT 41.4 05/01/2020 PLT 185 05/01/2020 INR 0.9 05/24/2018 PTT 38 (H) 05/24/2018 SODIUM 143 05/01/2020 K 4.1 05/01/2020 CL 107 05/01/2020 CO2 25 05/01/2020 CALCIUM 9.3 05/01/2020 ALKPHOS 67 05/01/2020 ALBUMIN 4.6 05/01/2020 GLU 84 05/01/2020 ALT 15 05/01/2020 AST 18 05/01/2020 CREATININE 0.96 05/01/2020 BUN 19 05/01/2020 GFR >60 05/01/2020 GFR >60 05/01/2020 *Please note that labs listed above are the most recent lab values available in [facility] at the time ofthe office visit and additional labs may have been drawn since that time. ASSESSMENT / DIAGNOSIS: Spinal stenosis of lumbar region with neurogenic claudication PLAN: Celestino Peñaloza is scheduled for Laminectomy Lumbar Single Level / L1-L2 with Dr. Olsen on 10/22/23. DI Singletary 10/08/23 1426 [facility] Work Phone: [phone] History and physical note* DI Singletary - 10/08/2023 1:15 PM EST PRE-ADMISSION TESTING HISTORY AND PHYSICAL EXAM DATE: 10/08/23 PCP: DONNA HERRERA MD CHIEF COMPLAINT: Spinal stenosis of lumbar region with neurogenic claudication HISTORY OF PRESENT ILLNESS: Celestino Peñaloza, a 53 y.o. White or male, presents to [facility] for a pre-surgical H&P. The patient has been diagnosed with spinal stenosis of lumbar region with neurogenic claudication. He reports he has dealt with back pain since he was young, but it has gradually gotten worse. 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 He rates his pain at 1/10 but can increase to a 9/10. The pain is mid-back and shooting in nature. It does extend down his right leg into his foot. The pain awakens him at night. Denies bowel or bladder complaints. He has tried physical therapy which made the pain worse. He has done multiple TFESIs which were effective initially but are no longer providing optimal benefit. Diclofenac and gabapentin do take the edge off. MRI lumbar spine 08/03/23 impression: Surgical spinal fusion from L2 to S1 with postsurgical change. No hardware complications are seen. Disc bulging at L5-S1. No evidence of significant central canal narrowing or narrowing of the neuralforamina at the levels of the fusion. Severe degenerative arthritis in the lower thoracic and lumbar spine with severe changes at L1-L2. Associated disc bulging is seen at multiple levels. Various degrees of spinal stenosis and narrowingof the neural foramina in the lower thoracic and upper lumbar region has described above. Retrolisthesis at L1-L2. There has been further progression of the degenerative arthritis since prior examination of 01/03/2021. Anesthesia problems: Pt denies. Bleeding/ clotting disorders: Pt denies. Recent hospitalizations: Pt denies. PAST MEDICAL HISTORY: Past Medical History: Diagnosis Date Alcoholism ([facility]) Anemia Asthma Back pain Chronic pain disorder Cough Environmental allergies Hypertension history of this, not currently treated Hypothyroidism Low back pain Neck pain Spinal stenosis of lumbar region with neurogenic claudication Visual impairment lasik PAST SURGICAL HISTORY: Past Surgical History: Procedure Laterality Date ARTHROSCOPY REPAIR LESION SUPERIOR LABRUM EXTENDING FROM ANTERIOR TO POSTERIOR (SLAP) SHOULDER Left06/07/2018 Performed by Jr Christian Estrada DO at [facility] ARTHROSCOPY REPAIR ROTATOR CUFF SHOULDER Left 06/07/2018 Performed by Jr Christian Estrada DO at [facility] ARTHROSCOPY SHOULDER Left 06/07/2018 Performed by Jr Christian Estrada DO at [facility] INJECTION BLOCK SACROILIAC JOINT Bilateral 06/04/2023 Performed by Dave Garcia MD at [facility] INJECTION BLOCK SACROILIAC JOINT Bilateral 03/19/2023 Performed by Dave Garcia MD at [facility] INJECTION BLOCK SACROILIAC JOINT Bilateral 01/15/2023 Performed by Dave Garcia MD at [facility] INJECTION BLOCK SACROILIAC JOINT Bilateral 09/04/2022 Performed by Dave Garcia MD at [facility] INJECTION BLOCK SACROILIAC JOINT Right 05/22/2022 Performed by Dave Garcia MD at [facility] INJECTION BLOCK SACROILIAC JOINT Bilateral 02/20/2022 Performed by Dave Garcia MD at [facility] INJECTION BLOCK SACROILIAC JOINT Bilateral 10/20/2021 Performed by Dave Garcia MD at [facility] INJECTION BLOCK SACROILIAC JOINT Bilateral 12/13/2020 Performed by Dave Garcia MD at [facility] INJECTION BURSA LARGE JOINT Right hip intra-articular Right 02/21/2021 Performed by Dave Garcia MD at [facility] INJECTION BURSA LARGE JOINT: right hip Right 03/27/2022 Performed by Dave Garcia MD at [facility] INJECTION CAUDAL EPIDURAL WITH CATHETER, STEROID N/A 02/23/2020 Performed by Dave Garcia MD at [facility] INJECTION CAUDAL EPIDURAL WITH CATHETER, STEROID N/A 01/15/2020 Performed by Dave Garcia MD at [facility] INJECTION CAUDAL EPIDURAL WITH CATHETER, STEROID N/A 06/23/2019 Performed by Dave Garcia MD at [facility] INJECTION CAUDAL EPIDURAL WITH CATHETER, STEROID N/A 05/05/2019 Performed by Dave Garcia MD at [facility] INJECTION CAUDAL EPIDURAL WITH CATHETER, STEROID N/A 08/12/2018 Performed by Dave Garcia MD at [facility] INJECTION CAUDAL EPIDURAL WITH CATHETER, STEROID 1 of 2 N/A 01/28/2018 Performed by Dave Garcia MD at [facility] INJECTION CAUDAL EPIDURAL WITH CATHETER, STEROID 2 of 2 N/A 02/11/2018 Performed by Dave Garcia MD at [facility] INJE[facility] SPINE TRANSFORAMINAL Left L 1,2 Nroot Left 01/24/2021 Performed by Dave Garcia MD at [facility] INJECTION SPINE TRANSFORAMINAL: left L 1,2 nroot Left 04/17/2022 Performed by Dave Garcia MD at [facility] INJECTION SPINE TRANSFORAMINAL: right L 1,2 nroot Right 04/16/2023 Performed by Dave Garcia MD at [facility] LUMBAR FUSION 2019 L2-S1 REFRACTIVE SURGERY Bilateral FAMILY HISTORY: Family History Problem Relation Age of Onset Heart disease Mother Diabetes Mother Back Problems Father Alcohol abuse Father Cirrhosis Father Anesthesia problems Neg Hx SOCIAL HISTORY: The patient reports that he does not currently use alcohol. He reports that he has never smoked. He quit smokeless tobacco use about 27 years ago. His smokeless tobacco use included chew. He reports current drug use. Frequency: 7.00 times per week. Drugs: Marijuana and Medical Marijuana. ALLERGIES: No Known Allergies MEDICATIONS: Current Outpatient Medications: aspirin 81 mg, Take 1 tablet (81 mg total) by mouth in the morning., Disp: , Rfl: cetirizine (ZyrTEC) 10 MG chewable tablet, Chew 1 tablet (10 mg total) and swallow in the morning.,Disp: , Rfl: diazePAM (VALIUM) 2 mg tablet, Take 1 tablet (2 mg total) by mouth every 6 (six) hours as needed for anxiety., Disp: , Rfl: diclofenac (VOLTAREN) 75 mg EC tablet, Take 1 tablet (75 mg total) by mouth in the morning and 1 tablet (75 mg total) before bedtime., Disp: 60 tablet, Rfl: 5 FLUoxetine (PROzac) 40 MG capsule, Take 1 capsule (40 mg total) by mouth in the morning., Disp: , Rfl: gabapentin (NEURONTIN) 800 mg tablet, Take 1 tablet (800 mg total) by mouth 3 (three) times a day.,Disp: 90 tablet, Rfl: 1 levothyroxine (SYNTHROID, LEVOTHROID) 25 MCG tablet, Take 1 tablet (25 mcg total) by mouth in the morning. Indications: a condition with low thyroid hormone levels., Disp: , Rfl: multivitamin capsule, Take 1 capsule by mouth in the morning., Disp: , Rfl: SYMBICORT 160-4.5 mcg/actuation inhaler, Inhale 2 puffs in the morning and 2 puffs before bedtime.,Disp: , Rfl: 1 VENTOLIN HFA 90 mcg/actuation inhaler, Inhale 2 puffs every 4 (four) hours as needed., Disp: , Rfl: REVIEW OF SYSTEMS: Review of Systems Constitutional: Negative for fever, activity change and appetite change. HENT: Negative for dental problem, ear pain, rhinorrhea and sore throat. Respiratory: Negative for apnea, cough, chest tightness and shortness of breath. Cardiovascular: Negative for chest pain and palpitations. Gastrointestinal: Negative for nausea, vomiting, diarrhea and constipation. Genitourinary: Negative for dysuria, urgency, frequency, hematuria and difficulty urinating. Musculoskeletal: Positive for myalgias, back pain, arthralgias and gait problem. Skin: Negative for rash and wound. Neurological: Negative for dizziness, seizures, syncope, light-headedness and numbness. Psychiatric/Behavioral: Negative for sleep disturbance. The patient is not nervous/anxious. VITAL SIGNS: BP 125/81 Pulse 74 Temp 36.5 C (97.7 F) (Temporal) Resp 18 Ht 172.7 cm (5' 8 ) Wt 91.8 kg(202 lb 6.1 oz) SpO2 93% BMI 30.77 kg/m PHYSICAL EXAM: Physical Exam Constitutional: Appearance: Normal appearance. HENT: Head: Normocephalic and atraumatic. Mouth/Throat: Mouth: Mucous membranes are moist. Eyes: Pupils: Pupils are equal, round, and reactive to light. Cardiovascular: Rate and Rhythm: Normal rate and regular rhythm. Pulses: Normal pulses. Heart sounds: Normal heart sounds. No murmur heard. Pulmonary: Effort: Pulmonary effort is normal. Breath sounds: Normal breath sounds. No wheezing. Abdominal: General: Abdomen is flat. Bowel sounds are normal. There is no distension. Palpations: Abdomen is soft. Tenderness: There is no abdominal tenderness. Musculoskeletal: Cervical back: Neck supple. Lymphadenopathy: Cervical: No cervical adenopathy. Skin: General: Skin is warm and dry. Findings: No rash. Neurological: General: No focal deficit present. Mental Status: He is alert and oriented to person, place, and time. Psychiatric: Mood and Affect: Mood normal. RECENT LABS: Lab Results Component Value Date WBC 5.7 05/01/2020 HGB 13.7 05/01/2020 HCT 41.4 05/01/2020 PLT 185 05/01/2020 INR 0.9 05/24/2018 PTT 38 (H) 05/24/2018 SODIUM 143 05/01/2020 K 4.1 05/01/2020 CL 107 05/01/2020 CO2 25 05/01/2020 CALCIUM 9.3 05/01/2020 ALKPHOS 67 05/01/2020 ALBUMIN 4.6 05/01/2020 GLU 84 05/01/2020 ALT 15 05/01/2020 AST 18 05/01/2020 CREATININE 0.96 05/01/2020 BUN 19 05/01/2020 GFR >60 05/01/2020 GFR >60 05/01/2020 *Please note that labs listed above are the most recent lab values available in [facility] at the time ofthe office visit and additional labs may have been drawn since that time. ASSESSMENT / DIAGNOSIS: Spinal stenosis of lumbar region with neurogenic claudication PLAN: Celestino Peñaloza is scheduled for Laminectomy Lumbar Single Level / L1-L2 with Dr. Olsen on 10/22/23. DI Singletary 10/08/23 1426 [facility] in [facility] encounter[facility] Hospitalwmbly [id number] Instructions* Patient Instructions* Katina Mckeon RN - 10/08/2023 1:15 PM EST Your surgery/procedure is scheduled at [facility] on 10/22/2023 at 0730 Arrival Time 0530 [facility] Address: [address] [place] [address] in [address] located on [facility]. Report to the Entrance B. Check in at the information desk the surgery. The waiting room located on the second floor. If you have any questions prior to surgery, please call Pre-Admission Clinic at [phone] between 7:30 am and 4:30 pm Wednesday through Wednesday. If you have questions the morning of surgery, please call the Pre-op Department at [phone]. Notify your SURGEON if you develop any illness such as a cold, cough, fever, sore throat, vomiting or are hospitalized between now and your surgery. CONTINUE TO TAKE YOUR MEDICATIONS PRESCRIBED. DO NOT STOP YOUR PRESCRIBED MEDICATIONS UNLESS DIRECTED BY YOUR PRESCRIBING PHYSICIAN Take the following medications the morning of surgery with a sip of water: Diazepam, Fluoxetine, Gabapentin, Multivitamin, Zyrtec Weight loss medications: None Take inhalers as prescribed the morning of surgery. . Blood thinners: Medications such as Coumadin, Heparin, Aspirin, Plavix, Eliquis, Pradaxa) Please contact your physician regarding a stop/hold date for these medications. Diabetics: If you take insulin, contact your prescribing doctor for instructions on how to manage this the night before and the morning of surgery. Non-steriodal Anti-Inflammatory Drugs (NSAIDS)- Stop 3 days prior to surgery unless otherwise directed by your surgeon. (Stop Diclofenac) Vitamins/Herbal Products: You may continue to take your prescribed vitamins such as potassium, iron, vitamin B, vitamin C, or multivitamin unless specifically instructed by your surgeon to stop. STOPtaking all herbal products/teas one week prior to your surgery. Marijuana: Stop marijuana 72 hours prior to surgery, stop CBD oil 48 hours prior to surgery. If you have been given bowel prep instructions by your surgeon, please call the surgeon's office with any questions about these instructions. What do I do the day of Surgery? Age 2 through adult - Stop all solids by midnight, You may have clear liquids up to 2 hours before surgery, unless otherwise instructed by your surgeon. Clear liquids are: water, sports drinks such as Gatorade or G2, or apple juice. You may NOT have: tube feedings, dairy products, alcoholic beverages, orange juice, or any liquids with solids or pulp in it. If applicable, shower again with CHG soap the morning of your surgery. If you received a green plastic bracelet, bring it with you the day of surgery and your nurse will put it on you. In order to help prevent infection post-operatively, you may be asked to use a CHG mouthwash when you arrive to the Pre-op area. Your nurse will provide instruction the morning of. What do I need to do to prepare for surgery? If you will be going home the same day as your surgery, arrange for an adult over [address] Riding in a bus or taxi by yourself is not permitted. You should not smoke or drink alcohol 24 hours before your surgery. Alcohol thins the blood and may cause bleeding problems during surgery. Smoking increases the risk of breathing problems after surgery. If you have been assigned LONNIE Education by your surgeon's office, please complete this education prior to your surgery. For questions regarding LONNIE education, reach out to your surgeon's office. If you have been given a prescription for occupational, physical or speech therapy, please set up these appointments before your procedure. If you would like to schedule therapy at a [facility] facility, please call [phone] ([phone]). Do not use lotions, creams, powders, perfume, make up, cologne or after-shaves day of surgery. Remove ALL jewelry including wedding rings, body piercings,hair extensions that contain metal, nailpolish, make-up, and contact lens. You may brush your teeth the morning of surgery, but do not swallow the water. Wear your dentures and partial plates to the hospital (no adhesive). Shower the night the before. If applicable, use the CHG (chlorhexidine gluconate) soap or wipes What should I bring to the hospital? If you received a green plastic bracelet, bring it with you the day of surgery and your nurse will put it on you. Eyeglass or contact lens case If you will be spending the night, please bring personal care items and leave them in the car untilyou are taken to your room after surgery. Leave ALL valuables at home. If any of these instructions conflict with those you received from the surgeon, please seek clarification from your surgeon's office. DEEP BREATHING EXERCISES This exercise helps promote good air exchange and helps to prevent pneumonia after surgery. Breathe in slowly and deeply through the nose. Hold your breath for a few seconds and then exhale slowly through the mouth. Repeat this three times and then cough.Coughing helps to clear your lungs. If you have had a surgery with an incision into your abdomen or chest, press gently against your incision with a pillow or a folded blanket when you cough. Please be aware - it may not be gale to cough following some types of surgeries involving the eyes,ears, sinuses and throat. Always follow your doctor's instructions. LEG EXERCISE These exercises help promote good circulation and help to prevent blood clots after surgery. Point your toes to the ceiling and then point them to the wall. Do this slowly about 15-20 times. You may also move your feet in circles. Do the exercise that is most comfortable for you. If you have had surgery involving your shoulder or arm, we recommend you move your fingers. PRACTICING We ask that you begin practicing these exercises before your surgery. After surgery try to do both exercises at least every 2 hours during the day and early evening. SURGICAL SITE INFECTION PREVENTION What is a Surgical Site Infection? Infection can happen to the area of the body where surgery is done. This is called a surgical site infection (SSI). A SSI does not happen very often. Can SSIs be treated? Antibiotics are used to treat SSI. Some patients may need another surgery to treat the infection. The doctor will discuss treatment options with you. What are some of the things that hospitals are doing to prevent SSIs? Soap and water or alcohol hand rub are used before and after caring for each patient. Special soap is used to clean surgery workers hands and arms just before the surgery. Masks, gowns, gloves and hair covers are worn during the surgery to keep the area clean. Hair in the surgery area may be removed with clippers (not razors). A special soap that kills germs is used to clean the skin at the surgery site. Antibiotics may be given before the surgery starts. What can you do to prevent SSIs? Before surgery: You may be asked to shower or bathe with a special soap that kills germs the night before and the day of surgery. Use the soap as you were told. If you smoke, stop or cut down. Ask your doctor about ways to quit. Do not shave near where you will have surgery. Shaving can irritate the skin and make it easier to get and infection. After surgery: Be sure that the doctors and nurses clean their hands before and after touching you. Be sure your family and friends clean their hands before and after visiting you. Do not be afraid to remind them. * Care for your wound at home as told by your doctor or nurse * Call your doctor right away if you have fever, redness, increased pain, or drainage at the surgery site. Further questions? Contact the doctor, nurse or the Infection Prevention and Control department if you have any questions. PATIENT RIGHTS AND RESPONSIBILITIES As a patient at [facility], you have the right to: Receive medical care and be informed of who is taking care of you Be treated with dignity and respect Have a family member/customer engagement representative of choice and your physician notified of your admission Receive information and actively participate in decisions about your care and treatment Refuse care, treatment and services Decide who may provide your support and speak for you Access mandaeism and spiritual services Participate in ethical issues and questions about your care Receive private and confidential care Have appropriate assessment and management of your pain Know guest visitation restrictions or limitations Have an advance directive Access protective services Consent or refuse to participate in research studies or production or recordings, films or other images Have resolution of your complaints Receive information of hospital charges and payment methods Patient/patient customer engagement representative responsibilities are to: Provide information about health status to facilitate care, treatment and services Follow the treatment, plan, keep appointments and speak up when you do not understand the plan Respect the rights of other patients and healthcare personnel Follow organizational rules and regulations that support quality care and a safe environment Fulfill financial obligations as promptly as possible Bathing Before Surgery- Patients greater than 2 months of age You can help to lower your chance of infection at the site of your surgery by showering or bathing with a special soap called chlorhexidine gluconate (CHG). Germs live on your skin. This special soapwill help lower the amount of germs so they do not get into your surgery site. Special points to know: Do not use this soap if you know that you are allergic to CHG. Shower or bathe with CHG the night before and the morning of surgery. Do not shave the area of your body where the surgery will be done within 7 days of surgery. The CHG may make your skin a little dry, but do not use lotion. Steps for Bathing: Wash your hair as usual with your normal shampoo. Rinse your hair and body well after you shampoo to get rid all of the shampoo. Wash gently with the CHG from the neck down, but do not scrub the skin to hard. Be sure to wash thearea of your surgery very well. If showering, turn the water off while washing and then turn the water back onto rinse. Do not get CHG in the genital (private) area. Do not get CHG in the eyes, ears, nose or mouth. (If the soap gets into the eyes, flush them immediately with water). Do not wash with regular soap after CHG is used. Pat skin dry with a soft, clean towel. Patient should sleep in freshly laundered night clothes and report for surgery in clean clothes. [facility] NoteXR CHEST 2 VWS CLINICAL INFORMATION: . Pre-op testing. TECHNIQUE/PROCEDURE: Chest radiographs, two views. COMPARISON: Prior chest radiographs, most recently 05/24/2018 FINDINGS: No tracheal deviation. Cardiac and mediastinal contours are normal. No consolidation, pneumothorax or pleural effusion. No free air. IMPRESSION: * No radiographic evidence of acute cardiopulmonary disease. Finalized by Brenden Zapien MD on 09/23/2023 4:11 [facility] 09-23-2023 NoteCLINICAL INFORMATION: . Pre-op testing. TECHNIQUE/PROCEDURE: Chest radiographs, two views. COMPARISON: Prior chest radiographs, most recently 05/24/2018 FINDINGS: No tracheal deviation. Cardiac and mediastinal contours are normal. No consolidation, pneumothorax or pleural effusion. No free air. IMPRESSION: * No radiographic evidence of acute cardiopulmonary disease. Finalized by Brenden Zapien MD on 09/23/2023 4:11 [id number] History of Present illness Narrative* Charles Lama APRN-DEX - 09/23/2023 11:50 AM EST Images from the original note were not included. [facility] [address] [place] [address], [place] [address] * CHART NOTE ? 09/23/2023 Patient: Celestino Peñaloza 1970 [id number] Physician: Darrell Olsen MD CHIEF COMPLAINT Low back pain. HISTORY OF PRESENT ILLNESS 53 year old male presents to the office as a new patient for lumbar spine evaluation. During last visit Celestino reported a constant pain in the midline and bilateral low back that can be sharp or shooting at times. He advised he had a aching pain in the entire right upper leg when he wakes in the morning, but has intermittent pain in the left thigh as well. He admitted to some weakness in the BLE. He last completed PT in September of 2022 without improvement. He has not had any chiropractic treatment. He has had several lumbar and SI joint injections with Dr. Garcia in Pain Management with some relief at times. They discussed SCS, but determined he would not be a good candidate for that. Patient's imaging was discussed and reviewed to their understanding in office today. Given the failure of conservative therapies to improve patient's current symptoms, the goals and indications for neurosurgical intervention were discussed to the patient's understanding. Denies loss of automatic pattern edger strength, saddle anesthesia, urinary or bowel dysfunction, numbness or tingling, and loss of balance. Patient does not use an assistive device for ambulation. Patient is not diabetic and not a smoker. Hx of L2-S1 fusion with Dr. Cadet in 2019. ALLERGIES No Known Allergies MEDICATIONS Current Outpatient Medications: aspirin 81 mg, Take 1 tablet (81 mg total) by mouth in the morning., Disp: , Rfl: baclofen (LIORESAL) 10 mg tablet, Take 1 tablet (10 mg total) by mouth 3 (three) times a day., Disp: , Rfl: cetirizine (ZyrTEC) 10 MG chewable tablet, Chew 1 tablet (10 mg total) and swallow in the morning.,Disp: , Rfl: diazePAM (VALIUM) 2 mg tablet, Take 1 tablet (2 mg total) by mouth every 6 (six) hours as needed for anxiety., Disp: , Rfl: diclofenac (VOLTAREN) 75 mg EC tablet, Take 1 tablet (75 mg total) by mouth in the morning and 1 tablet (75 mg total) before bedtime., Disp: 60 tablet, Rfl: 5 FLUoxetine (PROzac) 40 MG capsule, Take 1 capsule (40 mg total) by mouth in the morning., Disp: , Rfl: gabapentin (NEURONTIN) 800 mg tablet, Take 1 tablet (800 mg total) by mouth 3 (three) times a day.,Disp: 90 tablet, Rfl: 1 multivitamin capsule, Take 1 capsule by mouth in the morning., Disp: , Rfl: SYMBICORT 160-4.5 mcg/actuation inhaler, Inhale 2 puffs in the morning and 2 puffs before bedtime.,Disp: , Rfl: 1 VITAL SIGNS There were no vitals taken for this visit. PHYSICAL EXAMINATION Neurologic Exam Mental Status Oriented to person, place, and time. Level of consciousness: alert Knowledge: good. Motor Exam Muscle bulk: normal Overall muscle tone: normal Strength Strength 5/5 throughout. Sensory Exam Light touch normal. Gait, Coordination, and Reflexes Reflexes Right brachioradialis: 2+ Left brachioradialis: 2+ Right biceps: 2+ Left biceps: 2+ Right triceps: 2+ Left triceps: 2+ Right patellar: 2+ Left patellar: 2+ Right achilles: 2+ Left achilles: 2+ Right automatic pattern edger: 2+ Left automatic pattern edger: 2+ Right Dumont: absent Left Dumont: absent Right ankle clonus: absent Left ankle clonus: absent Antalgic gait. MRI / IMAGES CT lumbar spine without contrast 09-09-2023 Impression: Chronic and postsurgical changes are noted. These are detailed above. Please correlate with the clinical picture.. IMPRESSION / PLAN 53 year old male presents to the office as a new patient for lumbar spine evaluation. During last visit Celestino reported a constant pain in the midline and bilateral low back that can be sharp or shooting at times. He advised he had a aching pain in the entire right upper leg when he wakes in the morning, but has intermittent pain in the left thigh as well. He admitted to some weakness in the BLE. He last completed PT in September of 2022 without improvement. He has not had any chiropractic treatment. He has had several lumbar and SI joint injections with Dr. Garcia in Pain Management with some relief at times. They discussed SCS, but determined he would not be a good candidate for that. Patient's imaging was discussed and reviewed to their understanding in office today. Given the failure of conservative therapies to improve patient's current symptoms, the goals and indications for neurosurgical intervention were discussed to the patient's understanding. PLAN: 1. L1-2 laminectomy and fusion. 2. Preop chest x-ray. Electronically Signed By: Charles Lama CNP in conjunction with Darrell Olsen MD This note was created with the assistance of a speech recognition program with the goal of generating a timely record of the patient encounter. Inadvertent computerized weight and test bar clerk errors related to syntax, spelling, homophones, and/or inaudibility may be present. DI Cha 09/23/23 1548 documented [facility] Instructions* Patient Instructions* VIGNESH Hoover - 09/23/2023 11:50 AM EST Patient was seen by Dr. Olsen and DI Resendiz Patient was offered surgery for L1-L2 Laminectomy with Fusion. Patient will meet with Dr. Pretty Maradiaga's neurosurgeon, to schedule surgery. Patient was given an order for a chest x ray. JA documented in [facility] Miscellaneous Notes* Telephone Encounter - Kathy Peñaloza CNA - 09/16/2023 2:24 PM EST Last OV: 08/19/23 Next OV: 09/23/23 With Pretty VALERIO appropriate: yes Last UDS: na Pharmacy: [facility] documented in [facility] encounterUC [facility] Telephone encounter Note* Telephone Encounter - Kathy Peñaloza CNA - 09/16/2023 2:24 PM EST Last OV: 08/19/23 Next OV: 09/23/23 With Pretty VALERIO appropriate: yes Last UDS: na [facility]acy: [facility] History of Present illness Narrative* DI Cha - 09/02/2023 10:15 AM EST Images from the original note were not included. [facility] [address] [place] [address], [address] [place] [address] * CHART NOTE ? 09/02/2023 Patient: Celestino Peñaloza 1970 [id number] Nurse Practitioner: Charles Lama CNP Physician: Darrell Olsen MD, FAANS CHIEF COMPLAINT New patient HISTORY OF PRESENT ILLNESS 53 year old male presents to the office as a new patient for lumbar spine evaluation. Celestino reports a constant pain in the midline and bilateral low back that can be sharp or shooting at times. He advises he has a aching pain in the entire right upper leg when he wakes in the morning, but has intermittent pain in the left thigh as well. He admits to some weakness in the BLE. He last completed PT in September of 2022 without improvement. He has not had any chiropractic treatment. He has had several lumbar and SI joint injections with Dr. Garcia in Pain Management with some relief at times. They discussed SCS, but determined he would not be a good candidate for that. Denies loss of automatic pattern edger strength, saddle anesthesia, urinary or bowel dysfunction, numbness or tingling, and loss of balance. Patient does not use an assistive device for ambulation. Patient is not diabetic and not a smoker. Hx of L2-S1 fusion with Dr. Cadet in 2019. ALLERGIES No Known Allergies MEDICATIONS Current Outpatient Medications: aspirin 81 mg, Take 1 tablet (81 mg total) by mouth in the morning., Disp: , Rfl: baclofen (LIORESAL) 10 mg tablet, Take 1 tablet (10 mg total) by mouth 3 (three) times a day., Disp: , Rfl: cetirizine (ZyrTEC) 10 MG chewable tablet, Chew 1 tablet (10 mg total) and swallow in the morning.,Disp: , Rfl: diazePAM (VALIUM) 2 mg tablet, Take 1 tablet (2 mg total) by mouth every 6 (six) hours as needed for anxiety., Disp: , Rfl: diclofenac (VOLTAREN) 75 mg EC tablet, Take 1 tablet (75 mg total) by mouth in the morning and 1 tablet (75 mg total) before bedtime., Disp: 60 tablet, Rfl: 5 FLUoxetine (PROzac) 40 MG capsule, Take 1 capsule (40 mg total) by mouth in the morning., Disp: , Rfl: gabapentin (NEURONTIN) 800 mg tablet, Take 1 tablet (800 mg total) by mouth 3 (three) times a day.,Disp: 90 tablet, Rfl: 1 multivitamin capsule, Take 1 capsule by mouth in the morning., Disp: , Rfl: SYMBICORT 160-4.5 mcg/actuation inhaler, Inhale 2 puffs in the morning and 2 puffs before bedtime.,Disp: , Rfl: 1 VITAL SIGNS BP 115/77 Pulse 74 Ht 172.7 cm (5' 8 ) Wt 90.7 kg (200 lb) BMI 30.41 kg/m PAST MEDICAL HISTORY Past Medical History: Diagnosis Date Alcoholism ([facility]) Anxiety Back pain Chronic pain disorder Cough Depression Environmental allergies Hypertension history of this, not currently treated Low back pain Neck pain Visual impairment contacts PAST SURGICAL HISTORY Past Surgical History: Procedure Laterality Date ARTHROSCOPY REPAIR LESION SUPERIOR LABRUM EXTENDING FROM ANTERIOR TO POSTERIOR (SLAP) SHOULDER Left06/07/2018 Performed by Jr Christian Estrada DO at [facility] ARTHROSCOPY REPAIR ROTATOR CUFF SHOULDER Left 06/07/2018 Performed by Jr Christian Estrada DO at [facility] ARTHROSCOPY SHOULDER Left 06/07/2018 Performed by Jr Christian Estrada DO at [facility] INJECTION BLOCK SACROILIAC JOINT Bilateral 06/04/2023 Performed by Dave Garcia MD at [facility] INJECTION BLOCK SACROILIAC JOINT Bilateral 03/19/2023 Performed by aDve Garcia MD at [facility] INJECTION BLOCK SACROILIAC JOINT Bilateral 01/15/2023 Performed by Dave Garcia MD at [facility] IN[facility] BLOCK SACROILIAC JOINT Bilateral 09/04/2022 Performed by Dave Garcia MD at [facility] IN[facility] BLOCK SACROILIAC JOINT Right 05/22/2022 Performed by Dave Garcia MD at [facility] INJECTION BLOCK SACROILIAC JOINT Bilateral 02/20/2022 Performed by Dave Garcia MD at [facility] IN[facility] BLOCK SACROILIAC JOINT Bilateral 10/20/2021 Performed by Dvae Garcia MD at [facility] INJECTION BLOCK SACROILIAC JOINT Bilateral 12/13/2020 Performed by Dave Garcia MD at [facility] INJECTION BURSA LARGE JOINT Right hip intra-articular Right 02/21/2021 Performed by Dave Garcia MD at [facility] INJECTION BURSA LARGE JOINT: right hip Right 03/27/2022 Performed by Dave Garcia MD at [facility] IN[facility] CAUDAL EPIDURAL WITH CATHETER, STEROID N/A 02/23/2020 Performed by Dave Garcia MD at [facility] IN[facility] CAUDAL EPIDURAL WITH CATHETER, STEROID N/A 01/15/2020 Performed by Dave Garcia MD at [facility] IN[facility] CAUDAL EPIDURAL WITH CATHETER, STEROID N/A 06/23/2019 Performed by Dave Garcia MD at [facility] IN[facility] CAUDAL EPIDURAL WITH CATHETER, STEROID N/A 05/05/2019 Performed by Dave Garcia MD at [facility] IN[facility] CAUDAL EPIDURAL WITH CATHETER, STEROID N/A 08/12/2018 Performed by Dave Garcia MD at [facility] INJECTION CAUDAL EPIDURAL WITH CATHETER, STEROID 1 of 2 N/A 01/28/2018 Performed by Dave Garcia MD at [facility] INJECTION CAUDAL EPIDURAL WITH CATHETER, STEROID 2 of 2 N/A 02/11/2018 Performed by Dave aGrcia MD at [facility] INJECTION SPINE TRANSFORAMINAL Left L 1,2 Nroot Left 01/24/2021 Performed by Dave Garcia MD at [facility] SPINE TRANSFORAMINAL: left L 1,2 nroot Left 04/17/2022 Performed by Dave Garcia MD at [facility] SPINE TRANSFORAMINAL: right L 1,2 nroot Right 04/16/2023 Performed by Dave Garcia MD at [facility] REFRACTIVE SURGERY Bilateral FAMILY HISTORY Family History Problem Relation Age of Onset Heart disease Mother Diabetes Mother Back Problems Father Alcohol abuse Father Cirrhosis Father SOCIAL HISTORY Social History Socioeconomic History Marital status: Spouse name: Not on file Number of children: Not on file Years of education: Not on file Highest education level: Not on file Occupational History Not on file Tobacco Use Smoking status: Never Smokeless tobacco: Former Vaping Use Vaping Use: Every day Substances: THC Substance and Sexual Activity Alcohol use: Not Currently Comment: stopped 18 months ago Drug use: Yes Types: Marijuana, Medical Marijuana Comment: daily use Sexual activity: Yes Other Topics Concern Not on file Social History Narrative Not on file Social Determinants of Health Financial Resource Strain: Not on file Food Insecurity: No Food Insecurity (09/02/2023) Hunger Screening Food Insecurity - Worry: Never True Food Insecurity - Inability: Never True Transportation Needs: Not on file Physical Activity: Not on file Stress: Not on file Social Connections: Not on file Interpersonal Safety: Not on file REVIEW OF SYSTEMS ROS Positive Findings: Negative otherwise noted in the HPI PHYSICAL EXAMINATION Physical Exam: Mental Status: Orientation: Oriented. Speech: Normal quality. Language: Normal. Motor: Muscle Bulk: Normal. Muscle Tone: Normal. Power: Normal strength throughout. Fasciculations: No Sensory: Light touch normal in upper and lower extremities. Gait/Coord/DTR: Abnormal gait: antalgic gait. Able to heel walk on right, able to heel walk on left, and . Reflexes: Right brachioradialis 2+ Left brachioradialis 2+ Right biceps 2+ Left biceps 2+ Right triceps 2+ Left triceps 2+ Right patellar 2+ Left patellar 2+ Right achilles 2+ Left achilles 2+ Right automatic pattern edger 2+ Left automatic pattern edger 2+ Right Dumont reflex absent and left Dumont reflex absent Right ankle clonus absent and left ankle clonus absent. MRI / IMAGES MR lumbar spine without contrast 08-03-2023 IMPRESSION: * Surgical spinal fusion from L2 to S1 with postsurgical change. No hardware complications are seen. Disc bulging at L5-S1. No evidence of significant central canal narrowing or narrowing of the neural foramina at the levels of the fusion. 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 Associated disc bulging is seen at multiple levels. Various degrees of spinal stenosis and narrowing of the neural foramina in the lower thoracic and upper lumbar region has described above. * Retrolisthesis at L1-L2. * There has been further progression of the degenerative arthritis since prior examination of 01/03/2021. DIAGNOSIS / PLAN 53 year old male presents to the office as a new patient for lumbar spine evaluation. Celestino reports a constant pain in the midline and bilateral low back that can be sharp or shooting at times. He advises he has a aching pain in the entire right upper leg when he wakes in the morning, but has intermittent pain in the left thigh as well. He admits to some weakness in the BLE. He last completed PT in September of 2022 without improvement. He has not had any chiropractic treatment. He has had several lumbar and SI joint injections with Dr. Garcia in Pain Management with some relief at times. They discussed SCS, but determined he would not be a good candidate for that. PLAN: Lumbar flexion/extension x-rays. Lumbar CT without contrast. Consider lumbar fusion. Follow up after CT. Electronically Signed By: Charles Lama CNP This note was created with the assistance of a speech recognition program with the goal of generating a timely record of the patient encounter. Inadvertent computerized weight and test bar clerk errors related to syntax, spelling, homophones, and/or inaudibility may be present. DI Cha 09/02/23 1040 documented in this encounter[facility]01-[facility] Instructions* Patient Instructions* VIGNESH Hoover - 09/02/2023 10:15 AM EST Patient was seen by DI Resendiz Patient was given an order for CT Lumbar without contrast. Lumbar Spine Flex/Ext x ray. Patient will follow up when CT has been scheduled. JA documented in this encounterUC [facility]01-[facility] History of Present illness Narrative* CHIQUITA Wong - 08/19/2023 1:00 PM EST [facility] [address] [place] [address] Patient: Celestino Peñaloza Sex: male : 1970 Age: 53 y.o. PCP: DNONA HERRERA MD 08/19/2023 Celestino Peñaloza is here for a(n) follow up back pain to discuss MRI results and psych eval for possible scs. Chief Complaint Patient presents with Back Pain HPI: Previous Caudal ESIs w/ sig relief. Left L1/2 NRI w/ no relief. 02/21/21 Right hip inj w/ 80-90% relief. Bilat SI joint injection 12/13/2020 w/ 75% relief Bilateral SI joint injection on 10/20/2021 with 90% relief. 02/20/22 Daniel SI with 60% relief (mostly on right side) for 1 day and resolved groin pain. 03/27/22 Right hip with no relief. 04/24/22 NRI Left L1/2 with 95% relief. Now pain mostly in Right hip to groin, and anterior RLE to knee with pain only 05/22/2022 Right SIJ injection with 80% relief 01/15/2023 bilateral sacroiliac injections with 90% relief x 2 days. 03/19/2023 bilateral sacroiliac joint injections with 0% relief 09/04/22 Daniel SI Inj w/80% relief continued 01/15/2023 bilateral sacroiliac injections with 90% relief x 2 days. Pain continues to be 80% better post procedure . 03/19/2023 bilateral sacroiliac joint injections with 50% relief of groin pain. His worst pain now ishigher on the right 04/16/2023 Right L1/2 NRI with 0 relief 06/04/2023 bilateral sacroiliac injection with 75% relief Back Pain This is a chronic problem. The current episode started more than 1 year ago (childhood onset). The problem occurs constantly. The problem has been gradually worsening since onset. The pain is presentin the lumbar spine. The quality of the pain is described as stabbing, shooting and aching (jabbing). The pain radiates to the right thigh (posterior/ lateral aspect). Pain scale: 3/10 now but does increase to 9.5/10 with activity. The pain is moderate. The pain is Worse during the day (varies). The symptoms are aggravated by bending, twisting, sitting, position and standing (heavy lifting, walking, stairs, standing, twisting and bending ). Stiffness is present: n/a. Associated symptoms include leg pain (lateral aspect of right thigh). Pertinent negatives include no bladder incontinence, bowel incontinence, chest pain, fever, numbness, tingling or weakness. (Anterior thighs ache with sitting and ambulating short distances ) Risk factors include poor posture and obesity. Treatments tried: DR cid/CHARLEY, NSAID (naproxen, diclofenac), Gabapentin,rest, ice/heat slight relief, The treatment provided moderate relief. The effect of pain on patient's ADLS: Moderate Impairment. Past Medical History: Diagnosis Date Anxiety Back pain Chronic pain disorder Cough Depression Environmental allergies Hypertension history of this, not currently treated Low back pain Neck pain Visual impairment contacts Past Surgical History: Procedure Laterality Date ARTHROSCOPY REPAIR LESION SUPERIOR LABRUM EXTENDING FROM ANTERIOR TO POSTERIOR (SLAP) SHOULDER Left06/07/2018 Performed by Jr Christian Estrada DO at [facility] ARTHROSCOPY REPAIR ROTATOR CUFF SHOULDER Left 06/07/2018 Performed by Jr Christian Estrada DO at [facility] ARTHROSCOPY SHOULDER Left 06/07/2018 Performed by Jr Christian Estrada DO at [facility] INJECTION BLOCK SACROILIAC JOINT Bilateral 06/04/2023 Performed by Dave Garcia MD at [facility] INJECTION BLOCK SACROILIAC JOINT Bilateral 03/19/2023 Performed by Dave Garcia MD at [facility] INJECTION BLOCK SACROILIAC JOINT Bilateral 01/15/2023 Performed by Dave Garcia MD at [facility] INJECTION BLOCK SACROILIAC JOINT Bilateral 09/04/2022 Performed by Dave Garcia MD at [facility] INJECTION BLOCK SACROILIAC JOINT Right 05/22/2022 Performed by Dave Garcia MD at [facility] INJECTION BLOCK SACROILIAC JOINT Bilateral 02/20/2022 Performed by Dave Garcia MD at [facility] INJECTION BLOCK SACROILIAC JOINT Bilateral 10/20/2021 Performed by Dave Garcia MD at [facility] INJECTION BLOCK SACROILIAC JOINT Bilateral 12/13/2020 Performed by Dave Garcia MD at [facility] INJECTION BURSA LARGE JOINT Right hip intra-articular Right 02/21/2021 Performed by Dave Garcia MD at [facility] INJECTION BURSA LARGE JOINT: right hip Right 03/27/2022 Performed by Dave Garcia MD at [facility] INJECTION CAUDAL EPIDURAL WITH CATHETER, STEROID N/A 02/23/2020 Performed by Dave Garcia MD at [facility] IN[facility] CAUDAL EPIDURAL WITH CATHETER, STEROID N/A 01/15/2020 Performed by Dave Garcia MD at [facility] IN[facility]CTION CAUDAL EPIDURAL WITH CATHETER, STEROID N/A 06/23/2019 Performed by Dave Garcia MD at [facility] IN[facility]CTION CAUDAL EPIDURAL WITH CATHETER, STEROID N/A 05/05/2019 Performed by Dave Garcia MD at [facility] INJECTION CAUDAL EPIDURAL WITH CATHETER, STEROID N/A 08/12/2018 Performed by Dave Garcia MD at [facility] INJECTION CAUDAL EPIDURAL WITH CATHETER, STEROID 1 of 2 N/A 01/28/2018 Performed by Dave Garcia MD at [facility] INJECTION CAUDAL EPIDURAL WITH CATHETER, STEROID 2 of 2 N/A 02/11/2018 Performed by Dave Garcia MD at [facility] IN[facility] SPINE TRANSFORAMINAL Left L 1,2 Nroot Left 01/24/2021 Performed by Dave Garcia MD at [facility] INJECTION SPINE TRANSFORAMINAL: left L 1,2 nroot Left 04/17/2022 Performed by Dave Garcia MD at [facility] INJECTION SPINE TRANSFORAMINAL: right L 1,2 nroot Right 04/16/2023 Performed by Dave Garcia MD at [facility] REFRACTIVE SURGERY Bilateral No Known Allergies Family History Problem Relation Age of Onset Diabetes Mother Alcohol abuse Father Cirrhosis Father Social History Socioeconomic History Marital status: Spouse name: Not on file Number of children: Not on file Years of education: Not on file Highest education level: Not on file Occupational History Not on file Tobacco Use Smoking status: Never Smokeless tobacco: Former Vaping Use Vaping Use: Every day Substances: THC Substance and Sexual Activity Alcohol use: Not Currently Comment: stopped 18 months ago Drug use: Yes Types: Marijuana, Medical Marijuana Comment: daily use Sexual activity: Defer Other Topics Concern Not on file Social History Narrative Not on file Social Determinants of Health Financial Resource Strain: Not on file Food Insecurity: No Food Insecurity (08/19/2023) Hunger Screening Food Insecurity - Worry: Never True Food Insecurity - Inability: Never True Transportation Needs: Not on file Physical Activity: Not on file Stress: Not on file Social Connections: Not on file Interpersonal Safety: Not on file Review of Systems Constitutional: Negative. Negative for chills, fatigue and fever. HENT: Negative. Eyes: Negative. Respiratory: Negative for cough and shortness of breath. Cardiovascular: Negative. Negative for chest pain. Gastrointestinal: Negative. Negative for bowel incontinence, constipation and diarrhea. Endocrine: Negative. Genitourinary: Negative. Negative for bladder incontinence and difficulty urinating. Musculoskeletal: Positive for back pain and gait problem (limp gait with transition especially). Skin: Negative. Allergic/Immunologic: Negative. Neurological: Negative for tingling, weakness and numbness. Hematological: Negative. Psychiatric/Behavioral: Negative. Negative for suicidal ideas. Vital Signs: BP 142/87 Pulse 81 Resp 18 Ht 172.7 cm (5' 8 ) Wt 93.4 kg (206 lb) SpO2 98% BMI 31.32 kg/m Physical Exam: GENERAL - Healthy patient that appears stated age. HEENT - Normocephalic / Atraumatic, Extraoccular movements intact, trachea midline, thyroid within normal limits. CV - pulse regular, Warm extremities with appropriate color of nailbeds. RESP - No obvious wheezing, No Shortness of Breath, No overexertion response to exam maneuvers. COORDINATION - remains intact. PSYCH - Alert and Oriented x4, Attentive and appropriate, constitutionally normal, displays normal mood and affect per situation, answered questions appropriately during examination, demonstrated appropriate attention during discussion, demonstrated appropriate cognitive reasoning and understandingof the medical condition by asking appropriate questions regarding the diagnosis and risks/benefits/alternatives of treatment modalities. No obvious deficits in memory, reasoning, or intellect. Lumbar: SKIN - No rashes or bruising in the area of the patient s pain. LYMPH NODES - demonstrate no obvious enlargement. EXTREMITIES - Lower extremities are warm, with minimal edema and palpable pulses. Tenderness to palpation noted in the lumbar spine and paraspinal musculature. Pain is elicited withflexion, extension, and lateral rotation of the lumbar spine. Range of motion is diminished with these motions due to pain. Facet palpation is noted to be somewhat tender and facet loading maneuvers are mildly positive, but not concordant with the patient s normal pain complaints. STRENGTH - noted to be 5 out of 5 all muscle groups bilateral lower extremities including muscles involving hip flexion and abduction, knee flexion and extension, as well as foot dorsiflexion and plantarflexion. No notable atrophy, fasciculations or spasm. SENSORY - No notable sensory deficits in the bilateral lower extremities to touch or pinprick in all dermatomal distributions. Straight Leg Raise is negative. Gait is normal. Assessment/Treatment Plan: Celestino was seen today for back pain. Diagnoses and all orders for this visit: Spinal stenosis of lumbar region with neurogenic claudication Continue Gabapentin [address] Olsen Neurosurgical Referral - It is felt that due to the severity of the patient s symptoms and lack of response to conservative treatment, surgical options need to be reviewed at this time. Hopefully this will provide more definitive treatment strategies for these symptoms. Follow up after consult The medications I have prescribed have been reviewed for medication interactions/contraindications and/or for upcoming procedures: continue current medication regimen without any changes. DISCUSSION: Treatment options discussed with patient and all questions answered to patient's satisfaction. Discussed the rules and regulations surrounding prescription of opioids and compliance at length. Failure to follow the rules and regulation will result in tapering and discontinuation of medications if applicable. The patient has been instructed as to the type of medication prescribed alongwith directions for use. Potential side effects have been discussed, along with risks and benefits of taking this medication. (S)he was instructed as to what to do if (s)he experiences side effects, including when to discontinue the medication. (S)he was advised to call this office in this event. Also discussed at length safety and security of RX and medications. Due to the high risk nature of this patient's pain medication regimen, frequent office visit refill appointments (every 1-3 months) are medically necessary to monitor for an addiction disorder. Prescribed medication that requires intensive monitoring for toxicity Gabapentin. OARRS was reviewed, discussed and appropriate for medications prescribed. Treatment plans discussed but not opted for at this time: SCS triial. Patient would like to proceed with the current outlined treatment plan before moving forward with any other options. The spine model was demonstrated and MRI was reviewed and used to explain the condition. OARRS: Reviewed. Scribe Statement: Scribed for and in the presence of CHIQUITA WONG by Kathy Peñaloza CNA. Provider Statement: I, CHIQUITA WONG, personally performed the services described in the documentation, as scribed by Kathy Peñaloza CNA in my presence, and it is both accurate and complete. Kathy Peñaloza CNA 08/19/23 1437 CHIQUITA Wong 08/24/23 0902 [facility]* Encounter Date Diagnosis Assessment Notes Treatment Notes Treatment Clinical Notes May, Other chronic pain (ICD-10 - G89.29) I independently reviewed the plain x-ray lumbar spine and the report. Hardware is intact patient has a good lumbar fusion. He states he has popping in his back I am not certain as to where this is coming from there with very little motion in this gentlemen's back. He gets injections for sacroiliac I believe he has no palpable sacroiliac tenderness Hachey minimal palpable low back pain he is more concerned about the popping which he considers quite annoying. I again looked at his MRI which shows crowding of the L1-2 region but no overt compression he has no symptoms consistent with stenosis at this point. I again told the patient at some point in time he will end up needing more surgery on his back but not now I do not think the popping is an issue and I would not recommend continuously wearing a back brace. May, History of fusion of lumbar spine (ICD-10 - Z98.1) [employer] Other 01-31-2023 Evaluation note* Encounter Date Diagnosis Assessment Notes Treatment Notes Treatment Clinical Notes Aug, Lumbar radiculopathy (ICD-10 - M54.16) I independently reviewed the MRI of the lumbar spine with flexion-extension views that show spondylolisthesis of 2 or 3 mm with flexion and extension and fishmouthing of the disc space. In addition the patient is developing buttock and leg discomfort that is becoming quite uncomfortable. He has gone through physical therapy, he has had 8 sessions and was disengaged at this point; the therapist also agreed he needs an MRI. We will order an MRI of the lumbar spine with and without gadolinium and reevaluate with the patient once results are available. Aug, Spondylolisthesis of lumbar region (ICD-10 - M43.16) Aug, History of fusion of lumbar spine (ICD-10 - Z98.1) [employer] Other 12-20-2022 Evaluation note* Encounter Date Diagnosis Assessment Notes Treatment Notes Treatment Clinical Notes Jul, Lumbar radiculopathy (ICD-10 - M54.16) I reviewed the AP lateral flexion and extension view xray of the lumbar spine and compared to previous, there were minimal changes. There is a retrolisthesis of L2-3 that is beginning to occur. There has also been collapse of the L2-3 disc space. The patient has an MRI that shows a small disc herniation at L2-3 in 2020, he had moderate stenosis at that level but was not symptomatic like he is now. He is having a right L3 radiculopathy; it appears on the right. I will send him for physical therapy and then we will see him back in 6 weeks for reevaluation and possible MRI Jul, Spondylolisthesis of lumbar region (ICD-10 - M43.16) [employer] Other 12-21-2021 Evaluation note* Encounter Date Diagnosis Assessment Notes Treatment Notes Treatment Clinical Notes Jul, Fusion of lumbar spine (ICD-10 - M43.26) I independently reviewed the x-rays of the lumbar spine showing an L2-S1 fusion with good bone formation in many of the disc spaces hardware is intact. The patient has no true radicular complaints and is happy with his overall outcome. He continues to have chronic back pain which he acknowledges and I am not surprised. He does have left sacroiliac tenderness which is just beginning to return after a pain management intervention several months ago. I believe he seen pain management again. I will see the patient in 1 year for follow-up. Jul, Inflammation of left sacroiliac joint (ICD-10 - M46.1) Jul, Low back pain, unspecified (ICD-10 - M54.50) Jul, Other chronic pain (ICD-10 - G89.29) [employer] Other 10-23-2018 History general Narrative - Reported* Type Description Date Medical History chronic depression Medical History asthma Surgical History LT SHOULDER SCOPE PER DR KALPANA SUMMERS 06/07/18 Surgical History rotator cuff(L) Surgical History lasik Surgical History [facility] Hospitalization History See Above [employer] Other discharge summary Author Qasim Mancilla [facility] November 01, 2023 9:31am Note Date/Time October 30, 2023 10: 15am [facility] [address] [place] [address] Discharge Summary Signed Patient: Celestino Peñaloza MR#: [id number] : 1970 Acct:[id number] Age/Sex: 53 / M Adm Date: 4 Loc: Room: 9O5306-[address]: Qasim Mancilla MD Copies to: MD Donna Mcmanus MD~ Providers Date of Discharge: 10/29/23 Discharging Provider: Qasim Mancilla Primary Care Provider: Donna Herrera Consults: 10/27/23 14:25 Consult to Adult Hospitalist Routine Comment: Consulting Provider: Community Hospitalist (Adult) Reason For Exam: HTN Has Provider Been Notified: Yes Date of Notification: 10/27/23 Time of Notification: 14:29 Consult to Dietitian Routine Comment: Reason for Consult: Other Other Reason: rehab Consult to Occupational Therapy Routine Comment: Physician Instructions: Consult to OT for:: Evaluation and Treat Consult to Physical Therapy Routine Comment: Physician Instructions: Consult to PT for:: Evaluation and Treat Speech Admit Screen Routine Comment: Discharge Diagnosis (1) Depression with anxiety: (2) Hypothyroid: (3) Asthma: (4) S/P lumbar fusion: (5) Lumbar spinal stenosis: Final Diagnosis Final Discharge Diagnosis: As above Summary Hospital Course Hospital course: 53-year-old male past medical history significant for Hypothyroid, Remote EtOH abuse, asthma, anxiety/ depression, degenerative disc disease with chronic back pain. Patient went to [facility] October 21 for elective L1-2 compressive laminectomy and partial medial facetectomy with L1-2 fusion after failed conservative treatment. He was seen by therapy services and felt would benefit from ongoing therapy and subsequently transferred to the inpatient rehab unit here at [facility] October 27. Postoperatively the patient did have significant pain and postop MRI demonstrated no compressive hematoma. Hospitalist team is now consulted for ongoing management of hypertension. REHAB COURSE: The patient was admitted to the rehab unit for the above diagnoses. Upon admission, patient was doing very well functionally and medically. Given this, patient was requesting to DC home. Was OK to DC home. Discharged home in good condition. Time Spent with Patient Time spent providing/coordinating discharge services (# min): 40 Exam Physical Exam Vital Signs: Temp Pulse Resp BP Pulse Ox O2 Del Method 97.9 F 72 16 124/74 98 Room Air 10/29/23 06:05 10/29/23 06:05 10/29/23 06:05 10/29/23 06:05 10/29/23 06:05 10/29/23 09:28 Discharge Plan Discharge Plan Patient Disposition: Home Activity: Ambulate as Tolerated, May Shower and Other Diet: Regular Additional Instructions: -Activity: No lifting, carrying, twisting, or bending for 2 weeks after surgery.No lifting over 1-2lbs for 14 days. No driving for 2 weeks or while taking narcotic pain medication. OK to shower, no tub baths or swimming x14 days postop. Do not soak incision. -Diet: Regualr -Wound/Skin Care: Ok to leave incision open to air if not draining. May cover with dry sterile dressing and change daily if incision is draining or for protection. Your sutures are dissolvable and will fall out on their own. You have been given prescriptions for new and/or needed medications. These prescriptions are for a one-time fill only, with no re-fills. For further re- fills going forward, you will need to address with your PCP at your follow up appointment, or by calling your PCP?s office prior to the prescriptions running out. NOTE: please call within 24 hours if you need to cancel or change any follow up appointments. Arrive early to all follow up appointments, bring current medication list, photo ID and any insurance card(s) to all future follow ups (listed below). Please remember to wear a mask to all appointments. If you develop any symptoms (cough, fever/chills, shortness of breath, sore throat, nausea/vomiting, etc.) please contact your provider's office to inform them prior to your appointment. Instructions: Spinal Stenosis (DC), Spinal Fusion (DC) Prescriptions: New aspirin 81 mg Tablet,Delayed Release (Dr/Ec) 81 mg PO QHS 30 Days Qty: 30 0RF albuterol sulfate [Ventolin HFA] 90 mcg/actuation Hfa Aerosol Inhaler 2 puff inhalation Q4HR PRN (Reason: shortness of breath or wheezing) 30 Days Qty: 6.7 0RF budesonide-formoterol [Symbicort] 160-4.5 mcg/actuation Hfa Aerosol Inhaler 2 puff inhalation BID 30 Days Qty: 10.2 0RF dexamethasone 2 mg Tablet 2 mg PO Q8H Qty: 25 0RF Taper: Dexamethasone Taper 2 mg Q8H for 5 Days and 0 Hour 2 mg Twice daily for 5 Days and 0 Hour Rx Instructions: TAPER: 2 mg every 8 hours for 5 Days; 2 mg twice daily for 5 Days loratadine 10 mg Tablet 10 mg PO DAILY Qty: 0 0RF cyclobenzaprine 5 mg Tablet 5 mg PO TID PRN (Reason: back spasms) 10 Days Qty: 30 0RF famotidine 20 mg Tablet 20 mg PO BID 30 Days Qty: 60 0RF fluoxetine 20 mg Capsule 40 mg PO QAM 30 Days Qty: 60 0RF liothyronine [Cytomel] 5 mcg Tablet 5 mcg PO DAILY 30 Days Qty: 30 0RF Continued multivitamin Tablet 1 tab PO QNOON gabapentin 800 mg tablet 800 mg PO TID naloxone 4 mg/actuation spray,non-aerosol 1 spray INTRANASAL Q3M PRN (Reason: opioid overdose) diazepam 2 mg tablet 2 mg PO Q6HR PRN (Reason: anxiety) oxycodone 5 mg capsule 5 mg PO Q4HR PRN (Reason: pain) Discontinued fluoxetine 40 mg Capsule 40 mg PO QAM cetirizine 10 mg Tablet 10 mg PO DAILY aspirin 81 mg Tablet,Delayed Release (Dr/Ec) 81 mg PO QHS budesonide-formoterol [Symbicort] 160-4.5 mcg/actuation Hfa Aerosol Inhaler 2 inh INHALATION BID liothyronine 5 mcg tablet 5 mcg PO DAILY albuterol sulfate [ProAir HFA] 90 mcg/actuation HFA aerosol inhaler 2 inh inhalation Q4HR PRN (Reason: shortness of breath or wheezing) famotidine 20 mg tablet 20 mg PO BID dexamethasone 2 mg tablet 2 mg PO Q8HR cyclobenzaprine 10 mg tablet 5 mg PO TID PRN (Reason: back spasms) Follow Up: Darrell Olsen [Other] - 12/02/23 3:00 pm (ARRIVE BY 2:45 PM) Darrell Olsen MD [Referring] - 11/04/23 10:10 am (Arrive by 9:55am) Donna Herrera MD [Primary Care Provider] - 11/03/23 9:00 am (-PCP) Documented By: Qasim Mancilla MD [id number] Signed By: <Electronically signed by Qasim Mancilla MD> 11/01/23 1999 [facility] Work Phone: Evaluation noteNo assessment information available [facility] Work Phone: Evaluation note* Diagnosis Spinal stenosis of lumbar region with neurogenic claudication- Primary [facility] Diagnosis Spinal stenosis of lumbar region with neurogenic claudication- Primary History of lumbar fusion Radiculopathy, lumbar region Thoracic or lumbosacral neuritis or radiculitis, unspecified Lumbar radiculopathy Thoracic or lumbosacral neuritis or radiculitis, unspecified documented in this encounter [facility] [facility] Diagnosis Disorder of sacrum Disorders of sacrum [facility] Diagnosis Spinal stenosis of lumbar region with neurogenic claudication- Primary Pre-op testing Unspecified pre-operative examination Radiculopathy, lumbar region Thoracic or lumbosacral neuritis or radiculitis, unspecified Pre-op testing Unspecified pre-operative examination Spinal stenosis of lumbar region- Primary Spinal stenosis of lumbar region with neurogenic claudication documented in this encounter [facility] Diagnosis Spinal stenosis of lumbar region- Primary Spinal stenosis of lumbar region with neurogenic claudication Spinal stenosis of lumbar region with neurogenic claudication [facility] Diagnosis Onset Date Resolution Status Asthma acute Depression with anxiety acut e Hypothyroid acute Impaired mobility and activities of daily living acute Lumbar spinal stenosis acute Post-operative pain acute S/P lumbar fusion acute [facility] Work Phone: InstructionsNot on filedocumented in this encounter [facility] [employer] SystemsInstructionsNot on filedocumented in this encounter [facility] CenterQobliQ GroupInstructionsNot on filedocumented in this encounter [facility] CenterQobliQ GroupReason for referral (narrative)* Consultation (Routine) - Pending Review Specialty Diagnoses / Procedures Referred By Yvon t Referred To Contact Neurosurgery Diagnoses Spinal stenosis of lumbar region with neurogenic claudication Xu Troy PA [address] [place] [address] Darrell Olsen MD [facility] [address] [id number] Referral ID Status Reason Start Date Expiration Date Visits Requested Visits Authorized [id number] Pending Review Specialty Services Required 08/24/2023 08/23/2024 1 1 [facility] Summary Purpose Family History No Family History Records Found Relationship Condition Age at Onset Recorded Date/T margarito father Hypertension Unknown Not Specified Type 2 diabetes mellitus Unknown father Type 2 diabetes mellitus Unknown Relationship Condition Age at Onset Recorded Date/T margarito father Hypertension Unknown Not Specified Type 2 diabetes mellitus Unknown father Type 2 diabetes mellitus Unknown Not Specified Diabetes mellitus Unknown Advance Directives No Advanced Directives Records Found Advance Directive Response Recorded Date/ Time Advance Directives No April 12, 2020 9:53am Reason for Referral Specialty Diagnoses / Procedures Referred By Yvon dickson Referred To Contact Radiology Diagnoses Spinal stenosis of lumbar region with neurogenic claudication History of lumbar fusion Radiculopathy, lumbar region Lumbar radiculopathy Procedures CT lumbar spine without contrast Charles Lama, INSURANCE ACCOUNT REPRESENTATIVE-TELEHEALTH DIRECTOR [address] [place] [address] Referral ID Status Reason Start Date Expiration Date V isits Requested Visits Authorized [id number] Pending Review 09/02/2023 09/01/2024 1 1 Reason Evaluate and Treat P T for Back and Leg Pain Diagnosis 1 Lumbar radiculopathy (M54.16) Referral Organization [facility] urosurgery Referring Provider First Name Trino Referring Provider Last Name Helio Referring Provider Specialty Neurologica l Surgery Referred Organization [facility] Referred Address ,[place], [place],[address] Referred Provider Specialty Physical The rapist Referral Priority Routine Referral Appointment Date 2022-08-19 General Notes Heather Arevalo 023 04:08:29 PM >PT NOTES IN CHART Chief Complaint and Reason for Visit Chief Complaint See order Chief Complaint Lumbar Stenosis S/P Decompression / Fusion Lumbar Stenosis S/P Decompression / Fusion Reason for Visit Asthma Depression with anxiety Hypothyroid Impaired mobility and activities of daily living Lumbar spinal stenosis Post-operative pain S/P lumbar fusion Additional Source Comments REASON FOR VISIT (unrecogniz ed section and content) Reason Comments Back Pain Reason Comments 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 Specialty Diagnoses / Procedures Referred By Yvon dickson Referred To Contact Neurosurgery Diagnoses Spinal stenosis of lumbar region with neurogenic claudication Xu Troy PA [address] [facility] [place] [address] Darrell Olsen MD [address] [facility] [address] [place] [phone] Referral ID Status Reason Start Date Expiration Date Visits Requested Visits Authorized [id number] Pending Review Specialty Services Required 08/24/2023 08/23/2024 1 1 Reason Onset Date Comments Med Refill 09/16/2023 Reason Comments Follow-up ep/review ct results (unrecognized sect ion and content) No Status Records FoundNo Status Records FoundNo Status Records FoundNo Status Records FoundNo Status Records FoundNo Status Records Found INFORMATION SOURCE (unrecogn ized section and content) DATE CREATED AUTHOR 09/09/2022 [facility] DATE CREATED AUTHOR AUTHOR'S ORGANIZ ATION 09/12/2023 [facility] DATE CREATED AUTHOR AUTHOR'S ORGANIZ ATION 10/28/2023 [facility] DATE CREATED AUTHOR AUTHOR'S ORGANIZ ATION 11/05/2023 [facility] DATE CREATED AUTHOR AUTHOR'S ORGANIZ ATION 11/07/2023 [facility] DATE CREATED AUTHOR AUTHOR'S ORGANIZ ATION 11/10/2023 [facility] Care Teams (unrecognized sec tion and content) Team Status: Active Member Role Status Dates Donna Herrera MD Primary Care Provider Active Team Status: Inactive Member Role Status Dates Donna Herrera MD Primary Care Provider Active Trino Cadet MD Attending Provider Active Circulation Director Relationship Specialty Start Date End Date Donna Herrera MD [address] [phone] PCP - General 05/24/18 Circulation Director Relationship Specialty Start Date End Date Donna Herrera MD [address] [place] [address] PCP - General 05/24/18 Circulation Director Relationship Specialty Start Date End Date Donna Herrera MD [address] [place] [address] PCP - General 05/24/18 Circulation Director Relationship Specialty Start Date End Date Donna Herrera MD [address] [place] [address] PCP - General 05/24/18 Circulation Director Relationship Specialty Start Date End Date Donna Herrera MD [address] [place] [address] PCP - General 05/24/18 Circulation Director Relationship Specialty Start Date End Date Donna Herrera MD [address] [place] [address] PCP - General 05/24/18 Team Status: Inactive Member Role Status Dates Donna Herrera MD Primary Care Provider Active Start: October 27, 2023 End: October 29, 2023 Qasim Mancilla MD Admit Provid er, Attending Provider Active Start: October 27, 2023 End: October 29, 2023 Yasmeen Quinones , CORNELL Other Provider Active Star t: October 27, 2023 End: October 29, 2023 Flores Givens , CORNELL Other Provider Active Start : October 27, 2023 End: October 29, 2023 Ariela Kraft , CORNELL Other Provider Active Start: [facility] 2023 End: October 29, 2023 Alyce Mcintosh , CORNELL Other Provider Active Star t: October 27, 2023 End: October 29, 2023 Berkley Giron , CORNELL Other Provider Active Start : October 27, 2023 End: October 29, 2023 Jennifer Hatfield , [place]NELL Other Provider Active Start: [facility] 2023 End: October 29, 2023 Perla Bunn , CORNELL Other Provider Active Start: [facility] 2023 End: October 29, 2023 Lena Tejeda MD Other Provider Active Start: October 27, 2023 End: October 29, 2023 Virgilio Ley MD Other Provider Active Start: [facility] 2023 End: October 29, 2023 Kathy Loya APRN Other Provider Active Start: October 27, 2023 End: October 29, 2023 Michelle Echols DO Other Provider Active Start : October 27, 2023 End: October 29, 2023 Oswaldo Washington MD Other Provider Active Start : October 27, 2023 End: October 29, 2023 Bhavik Hull DO Other Provider Active Start: October 27, 2023 End: October 29, 2023 Prosper Fry MD Other Provider Active Start: October 27, 2023 End: October 29, 2023 Evelny Medina MD Other Provider Active Start : October 27, 2023 End: October 29, 2023 Marcell Green MD Other Provider Active Start: [facility] 2023 End: October 29, 2023 Kathe Lentz APRN Other Provider Active Start: October 27, 2023 End: October 29, 2023 Mary Bowen MD Other Provider Active Start: October 27, 2023 End: October 29, 2023 Tavon Zarco MD Other Provider Active Start: [facility] 2023 End: October 29, 2023 Jorge Lopez MD Other Provider Active Start: October 27, 2023 End: October 29, 2023 Sanjana Cortes MD Other Provider Active Start: October 27, 2023 End: October 29, 2023 Michel Fuchs DO Other Provider Active Start: October 27, 2023 End: October 29, 2023 Emil Magana MD Other Provider Active Start: [facility] 2023 End: October 29, 2023 Tong Varma MD Other Provider Active Start: [facility] 2023 End: October 29, 2023 BILLY Díaz Other Provider Active St art: October 27, 2023 End: October 29, 2023 Avelina Houser APRN Other Provider Active Star t: October 27, 2023 End: October 29, 2023 Rajat Silvestre MD Other Provider Active Start: October 27, 2023 End: October 29, 2023 John Krishna MD Other Provider Active Start: [facility] 2023 End: October 29, 2023 Tod Curry MD Other Provider Active Start: [facility] 2023 End: October 29, 2023 Maximus Arce MD Other Provider Active Star t: October 27, 2023 End: October 29, 2023 Tha Otto MD Other Provider Active Start: [facility] 2023 End: October 29, 2023 Swathi Jones , Other Provider Active Start: [facility] 2023 End: October 29, 2023 Ricky Guzman , Other Provider Active Start : October 27, 2023 End: October 29, 2023 Juan C Santiago , Other Provider Active Sta rt: October 27, 2023 End: October 29, 2023 Gina Franco APRN Other Provider Active Start: October 27, 2023 End: October 29, 2023 Vito Azar , Other Provider Active Start: October 27, 2023 End: October 29, 2023 Khloe Silva MD Other Provider Active Sta rt: October 27, 2023 End: October 29, 2023 Sabi Ruff APRN Other Provider Active Start : October 27, 2023 End: October 29, 2023 Adilene Barba APRN Other Provider Active St art: October 27, 2023 End: October 29, 2023 Janessa Negrete MD Other Provider Active Start: [facility] 2023 End: October 29, 2023 Avi Khan MD Other Provider Active S tart: October 27, 2023 End: October 29, 2023 Los Constantino , Other Provider Active Star t: October 27, 2023 End: October 29, 2023 Keaton Reyes , Other Provider Active Start: October 27, 2023 End: October 29, 2023 Adam Curry MD Other Provider Active Start: October 27, 2023 End: October 29, 2023 Alisa Bauer RN Other Provider Active Start: [facility] 2023 End: October 29, 2023 Team Status: Active Member Role Status Dates Donna Herrera MD Primary Care Provider Active Start: October 28, 2023 Qasim Mancilla MD Admit Provid er, Attending Provider, Other Provider Active Start: October 28, 2023 Yasmeen Quinones , CORNELL Other Provider Active Star t: October 28, 2023 Flores Givens , CORNELL Other Provider Active Start : October 28, 2023 Ariela Kraft , CORNELL Other Provider Active Start: [facility] 2023 Alyce Mcintosh , CORNELL Other Provider Active Star t: October 28, 2023 Berkley Giron , CORNELL Other Provider Active Start : October 28, 2023 Jennifer Hatfield , CORNELL Other Provider Active Start: [facility] 2023 Perla Bunn RN Other Provider Active Start: [facility] 2023 Lena Tejeda MD Other Provider Active Start: October 28, 2023 Virgilio Ley MD Other Provider Active Start: [facility] 2023 Kathy Loya APRN Other Provider Active Start: October 28, 2023 Michelle Echols DO Other Provider Active Start : October 28, 2023 Oswaldo Washington MD Other Provider Active Start : October 28, 2023 Bhavik Hull DO Other Provider Active Start: October 28, 2023 Prosper Fry MD Other Provider Active Start: October 28, 2023 Evelyn Medina MD Other Provider Active Start : October 28, 2023 Marcell Green MD Other Provider Active Start: [facility] 2023 Kathe Lentz APRN Other Provider Active Start: October 28, 2023 Mary Bowen MD Other Provider Active Start: October 28, 2023 Tavon Zarco MD Other Provider Active Start: [facility] 2023 Jorge Lopez MD Other Provider Active Start: October 28, 2023 Sanjana Cortes MD Other Provider Active Start: October 28, 2023 Michel Fuchs DO Other Provider Active Start: October 28, 2023 Emil Magana MD Other Provider Active Start: [facility] 2023 Tong Varma MD Other Provider Active Start: [facility] 2023 Rhiannon Feldman NP-C Other Provider Active St art: October 28, 2023 Adjondi M Born , [employer]ANCE ACCOUNT REPRESENTATIVE Other Provider Active Star t: October 28, 2023 Rajat Silvestre MD Other Provider Active Start: October 28, 2023 John Krishna MD Other Provider Active Start: [facility] 2023 Tod Curry MD Other Provider Active Start: [facility] 2023 Maximus Arce MD Other Provider Active Star t: October 28, 2023 Tha Otto MD Other Provider Active Start: [facility] 2023 Swathi Jones , DO Other Provider Active Start: [facility] 2023 Ricky Guzman , DO Other Provider Active Start : October 28, 2023 Juan C Santiago , DO Other Provider Active Sta rt: October 28, 2023 Gina Franco APRN Other Provider Active Start: October 28, 2023 Vito Azar , Other Provider Active Start: October 28, 2023 Khloe Silva MD Other Provider Active Sta rt: October 28, 2023 Sabi Ruff APRN Other Provider Active Start : October 28, 2023 Adilene Barba APRN Other Provider Active St art: October 28, 2023 Janessa Negrete MD Other Provider Active Start: [facility] 2023 Avi Khan MD Other Provider Active S tart: October 28, 2023 Los Constantino , Other Provider Active Star t: October 28, 2023 Keaton Reyes , DO Other Provider Active Start: October 28, 2023 Adam Curry MD Other Provider Active Start: October 28, 2023 Alisa Bauer RN Other Provider Active Start: [facility] 2023 Goals (unrecognized section and content) Goals may be documented in a n alternate section FOR RECORDS PERTAINING TO PATIENTS WHO ARE OR HAVE BEEN ENROLLED IN A CHEMICAL DEPENDENCY/SUBSTANCEABUSE PROGRAM, SOME INFORMATION MAY BE OMITTED. This clinical summary was aggregated from multiple sources. Caution should be exercised in using it in the provision of clinical care. This summary normalizes information from multiple sources, and as a consequence, information in this document may materially change the coding, format and clinical context of patient data. In addition, data may be omitted in some cases. CLINICAL DECISIONS SHOULD BE BASED ON THE PRIMARY CLINICAL RECORDS. [facility]. provides no warranty or guarantee of the accuracy or completeness of information in this document.
[2023-11-12 11:17] LABS: Free T3 1.73 pg/mL (2.18-3.98); Thyroid Stimulating Hormone 3.049 uIU/mL (0.358-3.740)
== END 2023-11-12 10:09 | disposition home or self-care (01) ==
LOC: LAB 10:08
PROVIDERS: PCP Family Medicine; Visit Provider Family Medicine
DX: D64.9 Anemia, unspecified (principal)
CPT/HCPCS: 36415; 84436; 84443; 84481

== ENCOUNTER 2023-12-10 13:45 | Outpatient (OUT) | payer OTHER, SELFPAY | END 2023-12-10 13:46 | disposition home or self-care (01) | LOC: PST 13:45 | PROVIDERS: PCP Family Medicine; Visit Provider Surgery | DX: Z01.818 Encounter for other preprocedural examination (principal); D64.9 Anemia, unspecified; D48.5 Neoplasm of uncertain behavior of skin ==

== ENCOUNTER 2023-12-22 06:51 | Day surgery (SDC) | payer OTHER, SELFPAY ==
--- NOTE | 2023-12-22 | OP_ITS ---
OPERATION DATE: 12/22/2023 PREOPERATIVE DIAGNOSIS: Anemia as well as changing lesion of the left pinna. POSTOPERATIVE DIAGNOSIS: Normal EGD and colonoscopy, and left ear lesion. PROCEDURE: EGD and colonoscopy to cecum; excisional biopsy of left ear lesion. SURGEON: Michel Avalos M.D. ANESTHESIA: Monitored anesthesia care, as well as local with 0.5% Marcaine plain. ESTIMATED BLOOD LOSS: Less than 2 mL. INDICATIONS AND CONSENT: Patient is a 53-year-old male presents for anemia, as well as enlarging changing lesion of the left pinna. Indications, risks, benefits, alternatives of proceeding with EGD and colonoscopy, as well as excisional biopsy of the ear lesion were explained extensively to the patient, including the risks of bleeding, infection, scarring, pain, esophageal/gastric/duodenal or colonic perforation or anesthetic complications. All of his questions were answered. Informed consent was obtained. PROCEDURE: Patient brought to the operating room, placed in the left lateral decubitus position. Monitored anesthesia care was provided. Bite block was placed in the patient?s mouth. Scope was inserted into the oropharynx. Under direct visualization, it was advanced into the esophagus, past the cricopharyngeus, down to the stomach. The stomach was insufflated with air. The pylorus was traversed down to the descending portion of the duodenum. There was no evidence of duodenitis or ulceration. There was no scarring within the pyloric channel. Scope was pulled back into the stomach and retroflexed. There was no significant hiatal hernia. The GE junction was noted at 38 cm. There was no distal esophagitis or Martínez?s changes. Remainder of the esophagus was unremarkable. The scope was then withdrawn. Patient was then positioned for colonoscopy. Rectal exam was performed, which showed no masses or blood. The scope was then inserted into the anal canal. Under direct visualization, it was advanced. With the aid of abdominal compression, it was advanced to the cecum where cecal markings were clearly identified. There was noted to be a good prep. Upon withdrawal of the scope, mucosal surfaces were carefully examined. There were no mass lesions or polyps. No inflammatory changes or ulcerations. No significant diverticulosis. The scope was retroflexed in the anal canal. There were prominent rectal veins. No significant hemorrhoidal disease. No old or new blood. The scope was then withdrawn. Follow up screening colonoscopy should be in 10 years. The patient was then positioned in the supine position. The left pinna lesion was prepped and draped in the usual sterile fashion. It was anesthetized with 0.5% Marcaine plain. It was excised in elliptical fashion, down to subcutaneous tissue. Total length of the incision was 7 mm. It was sent off to Pathology. The incision was then closed with interrupted 5-0 nylon sutures. A small amount of antibiotic ointment was applied. The patient tolerated procedure well. Estimated blood loss less than 2 mL. Patient was sent to recovery room in good condition. CC: Adithya Hernandez M.D. FABIANO
--- OUTSIDE RECORDS SUMMARY | 2023-12-22 06:55 | XMS_ITS | CCD ---
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 Role Phone Trino Cadet Unavailable SHARON, [...] Unavailable NOEL, DR RHONDA Weathers Attending Unavailabl e NOEL, DR RHONDA Weathers Admitting Unavailabl e CHIQUITA ULLOA Consulting Unavailable ENA, TRISTA Consulting Unavailable MD Donna Herrera Primary Care Provider [phone] MD Trino Cadet Attending Provider Donna Herrera MD Primary Care Provider [phone] DARRELL OLSEN Admitting Unavailable DARRELL OLSEN Attending Unavailable HOY DONNA M Primary Care Unavailable JIM COPELAND Consulting Unavailable AMEENAY DONNA M Primary Care Unavailable KAREN LAMAIA Referring Unavailable HOY, DONNA M Primary Care Unavailable DARRELL OLSEN Attending Unavailable DARRELL OLSEN Referring Unavailable HOY DONNA M Primary Care Unavailable MARVA AGUAYO Referring Unavailable HOY, DONNA M Primary Care Unavailable KELBY CHARLES Referring Unavailable HOY, DONNA M Primary Care Unavailable DARRELL OLSEN Referring Unavailable SHARON DONNA M Primary Care Unavailable MD Donna Herrera Primary Care Provider [phone] MD Qasim Mancilla Admit Provider [phone] MD Qasim Mancilla Attending Provider [phone] CORNELL Quinones Other Provider Unavailable CORNELL Givens Other Provider Unavailable CORNELL Kraft Other Provider Unavailable CORNELL Mcintosh Other Provider Unavailable CORNELL Giron Other Provider Unavailable CORNELL Hatfield Other Provider Unavailable CORNELL Bunn Other Provider Unavailable MD Lena Tejeda Other Provider MD Virgilio Ley Other Provider Unavailable Dials, [employer] Kathy M Other Provider [phone] DO Michelle Echols Other Provider MD Oswaldo Washington Other Provider DO Bhavik Hull Other Provider MD Prosper Fry Other Provider MD Evelyn Medina Other Provider MD Marcell Green Other Provider Unavailable Mary Carmen SOURCING INTERNSHIPFreida Archuleta Other Provider MD Mary Bowen Other Provider MD Tavon Zarco Other Provider MD Jorge Lopez Other Provider MD Sanjana Cortes Other Provider DO Michel Fuchs Other Provider [phone] MD Emil Magana Other Provider MD Tong Varma Other Provider MASSIEL Feldman-C Rhiannon Geronimo Other Provider Mik SOURCING INTERNSHIPFreida Blanchard Other Provider Unavailable MD Rajat Silvestre Other Provider MD John Krishna Other Provider MD Tod Curry Other Provider MD Maximus Arce Other Provider Unavailable MD Tha Otto Other Provider DO Swathi Jones Other Provider DO Ricky Guzman Other Provider [phone] DO Juan C Santiago Other Provider PIPO Franco Other Provider DO Vito Azar Other Provider MD Khloe Silva Other Provider PIPO Ruff Other Provider [phone] PIPO Barba Other Provider MD Janessa Negrete Other Provider MD Avi Khan Other Provider [phone] DO Dougie Los T Other Provider DO Eric Yajered Other Provider MD Adam Curry Other Provider CORNELL Bauer Other Provider Unavailable Donna Herrera Primary Care Physician Qasim Mancilla Attending UnavailQasim Sales Admitting Unavaila Donna Mendez Primary Care Unavailable Yasmeen Quinones Consulting Unavailable Gearjojo, Flores Consulting Unavailable Ariela Kraft Consulting Unavailable Denssusie, Alyce Consulting Unavailable Mack Berkley Consulting Unavailable Jennifer Hatfield Consulting Unavailable Oni, Perla Consulting Unavailable Massgodfreyh, Rafcruzito Consulting Unavailable Jil, Virgilio K Consulting Unavailable Dials, Kathy M Consulting Unavailable Onesimo, Ronobir Consulting Unavailable Padmini, Oswaldo Consulting Unavailable Bhavik Hull Consulting UnavailProsper Tejada Consulting Unavailable Evelyn Medina Consulting Unavailable Marcell Green Consulting Unavailable Kathe Lentz Consulting Unavailabl Mary [place] Consulting Unavailable Tavon Zarco Consulting Unavailable Jorge Lopez Consulting Unavailable Sanjana Cortes Consulting Unavailable Michel Fuchs Consulting Unavailable Emil Magana Consulting Unavailable Tong Varma Consulting Unavailable Rhiannon Feldman Consulting Unavailable Mik, Adjondi M Consulting Unavailable Rajat Silvestre Consulting UnavailJohn Barker Consulting Unavailable Tod Curry Unavailable Maximus Arce Consulting Unavailable Tha Otto Consulting Unavailable Swathi Jones Unavailable Ricky Guzman Consulting Unavailable Juan C Santiago Consulting Unavailable ObGina justice Consulting Unavailable Vito Azar Consulting Unavailable DaromaKhloe lee Consulting Unavailable Sabi Ruff Consulting Unavailable Adilene Barba Consulting Unavailable Janessa Negrete Consulting Unavailable Avi Khan Consulting Unavailable [place] Consulting Unavailable Keaton Reyes Consulting Unavailable Adam Curry Consulting Unavailable Alisa Bauer Consulting Unavailable Trino Cadet Admitting Unavailable Hoy, Donna M Primary Care Unavailable Trino Cadet Attending Unavailable DARRELL OLSEN Attending Unavailable HOY, DONNA M Referring Unavailable HOY, DONNA M Primary Care Unavailable HOY, DONNA M Referring Unavailable HOY, DONNA M Primary Care Unavailable CHARLES LAMA Attending Unavailable XU TROY Referring Unavailable HOY, DONNA M Primary Care Unavailable LAMACHARLES Attending Unavailable HOY, DONNA M Referring Unavailable HOY, DONNA M Primary Care Unavailable CHARLES LAMA Attending Unavailable Hoy, Donna Referring Unavailable Michel ROBBINS Attending Unavailable LAMA, CHARLES Referring Unavailable HOY, DONNA M Primary Care Unavailable FITZ CARRASQUILLO Attending Unavailable HOY, DONNA M Referring Unavailable HOY, DONNA M Primary Care Unavailable XU TROY Attending Unavailable XU TROY Referring Unavailable HOY, DONNA M Primary Care Unavailable XU TROY Attending Unavailable HOY, DONNA M Referring Unavailable HOY, DONNA M Primary Care Unavailable LAMA, CHARLES Referring Unavailable HOY, DONNA M Primary Care Unavailable Allergies Allergy Classification Reported Allergen(s) Allergy Type Date of Onset Reaction(s) Facility (1 source) No Known Medication Allergies; Translations: [No Known Medication Allergies] Propensity to adverse reactions (disorder) [facility] Repository Medications Current Medications Medication Drug Class(es) Dates Sig (Normalized) Sig (Original) [id number] 200 actuat albuterol 0.09 mg/actuat metered dose [...] aspirin 81 mg delayed release oral tablet (14 sources) Platelet Aggregation Inhibitor, Nonsteroidal Anti-inflammatory Drug Start: 05-22-2020 End: 10-29-2023 take 1 tablet by mouth once daily aspirin 81 mg Oral EC Tab 81 mg = 1 tab(s), Oral, Daily, Refills(s) 0 Start Date: 10/14/23 Status: Ordered take 1 tablet by mouth once trell [...] MOUTH TWICE DAILY Inhalation for 30 Active cetirizine hydrochloride 10 mg oral tablet (13 sources) Histamine-1 Receptor Antagonist Start: 05-22-2020 End: 10-29-2023 take 1 tablet by mouth once daily as needed cetirizine 10 mg Tab 10 mg = 1 tab(s), Oral, Daily, PRN Allergy symptoms, Refills(s) 0 Start Date: 10/14/23 Status: Ordered cetirizine (ZyrT EC) 10 MG chewable tablet Chew 1 tablet (10 mg total) and swallow in the morning. 0 Active take 2 tablets by [facility] every twenty-four hours Cetirizine HCl 10 MG 2 tablets Orally On ce a day Active cyclobenzaprine hydrochloride 5 mg oral tablet [...] 2023 9:45am diazePAM 2 mg oral tablet (14 sources) Benzodiazepine Start: 10-27-2023 take 2 mg by mouth every six hours Diazepam Active 2 MG PO Every 6 hours October 27, 2023 12:00am Start: 10-14-2023 take 1 tablet by eleni th once daily as needed for anxiety diazepam 2 mg Tab 2 mg = 1 tab(s), Oral, Daily, PRN as needed for anxiety, Refills(s) 0 Start Date: 10/14/23 Status: Ordered Start: 05-22-2020 End: 06-01-2020 take 2 mg [...] sodium 75 mg delayed release oral tablet (14 sources) Nonsteroidal Anti-inflammatory Drug Start: 10-14-2023 take 1 tablet by mouth twice daily diclofenac sodium 75 mg Oral EC Tab 75 mg = 1 tab(s), Oral, BID, Refills(s) 0 Start Date: 10/14/23 Status: Ordered Start: 03-02-2023 End: 09-16-2023 take 1 tablet [...] mg by mouth twice daily Diclofenac Sodium Disc ontinued 75 MG PO Twice daily May 22, 2020 12:00am June 01, 2020 10:18am famotidine 20 mg oral tablet (2 sources) Histamine-2 Receptor Antagonist Start: 10-27-2023 End: 10-29-2023 take 20 mg by mouth twice daily Famotidine Active 20 MG PO Twice daily 60 30 October 29, 2023 12:00am FLUoxetine 20 mg oral capsule (14 sources) Serotonin Reuptake Inhibitor Start: 10-29-2023 take 40 mg by mouth once daily in the morning Fluoxetine Active 40 MG PO Every morning 60 October 29, 2023 12:00am Start: 05-22-2020 End: 10-29-2023 take 1 capsule by mouth once daily FLUoxetine 40 mg Cap 40 mg = 1 cap(s), Oral, Daily, Refills(s) 0 Start Date: 10/14/23 Status: Ordered gabapentin 800 mg oral tablet (11 sources) Anti-epileptic Agent Start: 10-27-2023 take 800 [...] 08/03/2023 Active Start: 05-22-2020 End: 10-27-2023 take 1 tablet by mouth three times daily gabapentin 600 mg Tab 600 mg = 1 tab(s), Oral, TID, Refills(s) 0 Start Date: 10/14/23 Status: Ordered levothyroxine sodium 0.025 mg oral tablet (2 sources) l-Thyroxine take 1 tablet by mouth in the morning levothyroxine (SYNTHROID, LEVOTHROID) 25 MCG tablet Indications: hypothyroidism Take 1 tablet (25 mcg total) by mouth in the morning. Indications: a condition with low thyroid hormone levels. 0 Active liothyronine sodium 0.005 mg oral tablet (3 sources) l-Triiodothyronine Start: 11-16-19 take 2 tablets by mouth once daily liothyronine 5 mcg Tab 10 mcg = 2 tab(s), Oral, Daily, Refills(s) 0 Start Date: 11/16/23 Status: Ordered Start: 10-27-2023 End: 10-29-2023 take 1 tablet by mouth once daily Liothyronine (Cytomel) 5 mcg Tablet Active 5 MCG PO Daily October 29, 2023 12:00am loratadine 10 mg oral tablet (1 source) Start: 10-29-2023 take 10 mg by mouth once daily Loratadine Active 10 MG PO Daily October 29, 2023 12:00am Multi Vitamins oral tablet (1 source) Start: 10-14-2023 take 1 tablet by mouth once daily Multi Vitamins oral tablet 1 tab(s), Oral, Daily, Refill(s) 0 Start Date: 10/14/23 Status: Ordered multivitamin capsule (6 sources) take 1 capsule by mouth in the morning multivitamin capsule Take 1 capsule by mouth in the morning. 0 Active Multivitamin preparation (2 sources) Start: 05-22-2020 take 1 tablet by mouth once daily Multivitamin Active 1 TAB PO every day at noon May 22, 2020 12:00am Naloxone (1 source) Opioid Antagonist Start: 10-27-2023 Naloxone Act devyn 1 SPRAY INTRANASAL Q3M October 27, 2023 12:00am oxyCODONE hydrochloride 5 mg oral capsule (3 sources) Opioid Agonist Start: 10-27-2023 take 5 mg by mouth every four hours Oxycodone Active 5 MG PO Every 4 hours October 27, 2023 12:00am Start: 05-31-2020 End: 10-27-2023 take 5-10 mg by mouth every six hours Oxycodone Discontinued 5 - 10 MG PO Q6H 60 8 May 31, 2020 October 27, 2023 3:03pm Symbicort 160/4.5 inhalation aerosol with adapter (1 source) Start: 10-14-2023 take 2 puff(s) by inhalation twice daily Symbicort 160/4.5 inhalation aerosol with adapter 2 puff(s), Inhalation, BID, Refill(s) 0 Start Date: 10/14/23 Status: Ordered Ventolin HFA 90 mcg/inh Aerosol-Adpt (1 source) Start: 10-14-2023 take 2 puff(s) by inhalation every four hours Ventolin HFA 90 mcg/inh Aerosol-Adpt 2 puff(s), Inhalation, q4hr Shortness of breath or wheezing, Refill(s) 0 Start Date: 10/14/23 Status: Ordered Completed/Discontinued Medications Medication Drug Class(es) Dates Sig (Normalized) Sig (Original) baclofen 10 mg oral tablet (5 sources) gamma-Aminobutyri c Acid-ergic Agonist End: 10-08-2023 take 1 tablet by mouth three times daily baclofen (LIORESAL) 10 mg tablet Take 1 tablet (10 mg total) by mouth 3 (three) times a day. 0 10/08/2023 Discontinued (Therapy completed) morphine sulfate 15 mg extended release oral tablet (2 sources) Opioid Agonist Start: 05-31-2020 End: 10-27-2023 take 1 tablet by mouth every twelve hours Morphine (Ms Contin) 15 mg tablet extended release Discontinued 15 MG PO Q12H 20 May 31, 2020 October 27, 2023 2:56pm take w/enough water to swallow whole; do not crush/dissolve/chew /cut/break Prednisone (2 sources) Start: 05-31-2020 End: 10-27-2023 Prednisone Discontinued 1 dose pk PO per package directions [...] of daily living] Onset: 10-27-2023 10-28-2023 Episodic Alcohol-related disorders (1 source) Alcoholic fatty liver 10-14-2023 Chronic Anxiety disorders (3 sources) Mixed anxiety and depressive disorder; Translations: [Other specified anxiety disorders] Onset: 10-27-2023 10-29-2023 Chronic Asthma (3 sources) Asthma; Translations: [Unspecified asthma, uncomplicated] Onset: 10-27-2023 10-29-2023 Chronic Deficiency and other anemia (2 sources) Anemia; Translations: [Anemia, unspecified] Onset: 11-16-2023 Episodic Disorders of lipid metabolism (1 source) Dyslipidemia 10-14-2023 Chronic Essential hypertension (1 source) Hypertensive disorder 10-14-2023 Chronic Fracture of lower limb (8 sources) Closed fracture of lateral malleolus; Translations: [Nondisplaced fracture of lateral malleolus of left fibula, initial encounter for closed fracture] Episodic Neoplasms of unspecified nature or uncertain behavior (2 sources) Neoplasm of uncertain behavior of skin; Translations: [Neoplasm of uncertain behavior of skin] Onset: 11-16-2023 Episodic Other acquired deformities (4 sources) Spondylolisthesis [...] fusion; Translations: [Arthrodesis status] 09-02-2023 Episodic Other nervous system disorders (4 [...] and joints of left foot] Episodic Other nutritional; endocrine; and metabolic disorders (1 source) Body mass index 30+ - obesity 11-16-2023 Chronic Other nutritional; endocrine; and metabolic disorders (1 source) Obesity 11-16-2023 Chronic Other screening for suspected conditions (not mental disorders or infectious disease) (1 source) Encounter for screening for malignant neoplasm of prostate; Translations: [ENC SCREEN MALIG NEOPLASM PROSTATE] Onset: 09-08-2022 Episodic Other skin disorders (1 source) Hyperhidrosis 10-14-2023 Episodic Other upper respiratory disease (1 source) Allergic rhinitis 10-14-2023 Chronic Residual codes; unclassified (4 sources) History of arthroscopic procedure on shoulder; Translations: [Other specified postprocedural states] Episodic Residual codes; unclassified (1 source) Other specified health status; Translations: [Other specified health status] Onset: 10-27-2023 Episodic Residual codes; unclassified (2 sources) Other specified postprocedural states; Translations: [Other specified postprocedural states] Onset: 12-02-2023 Episodic Spondylosis; intervertebral disc disorders; other back problems (18 sources) Degeneration of lumbar intervertebral disc; Translations: [Other intervertebral disc degeneration, lumbar region] Onset: 08-04-2018 Resolved: 08-05-2021 Chronic Sprains and strains (4 sources) Glenoid labrum tear; Translations: [Superior glenoid labrum lesion of left shoulder, initial encounter] Episodic Thyroid disorders (3 sources) Hypothyroidism; Translations: [Hypothyroidism, unspecified] Onset: 10-27-2023 10-29-2023 Chronic Unclassified (3 sources) CONTACT W/AND (SUSP) EXPOS COVID-19; Translations: [CONTACT W/AND (SUSP) EXPOS COVID-19] Onset: 02-05-2022 Unclassified (1 source) Spinal stenosis of lumbar region with neurogenic claudication [M48.062] Onset: 10-22-2023 Unclassified (1 source) Spinal stenosis, lumbar region with neurogenic claudication; Translations: [Spinal stenosis, lumbar region with neurogenic claudication] Onset: 05-24-2023 Unclassified (1 source) Post-op Onset: 11-04-2023 Unclassified (1 source) Consult Onset: 09-02-2023 Unclassified (1 source) Low back pain, unspecified; Translations: [Low back pain, unspecified] Onset: 08-18-2023 Past or Other Problems Problem Classification Problem Date Documented Da te Episodic/Chronic Nausea and vomiting (1 source) Nausea with vomiting, unspecified; Translations: [NAUSEA WITH VOMITING UNSPECIFIED] Onset: 02-05-2022 Episodic Other aftercare (1 source) 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; Translations: [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 USE OF ASPIRIN] Onset: 02-05-2022 Episodic Other aftercare (1 source) Other fpc (current) drug therapy; Translations: [OTH 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 DRUG THERAPY] Onset: 02-05-2022 Episodic Other connective tissue disease (7 sources) Arthrodesis status; Translations: [Arthrodesis status] Onset: 09-02-2023 Episodic Other gastrointestinal disorders (1 source) Diarrhea, unspecified; Translations: [DIARRHEA UNSPECIFIED] Onset: 02-05-2022 Episodic Other non-traumatic joint disorders (6 sources) Hip pain; Translations: [Pain in unspecified hip] Onset: 02-20-2021 03-12-2022 Episodic Residual codes; unclassified (1 source) Chronic pain Onset: 08-03-2023 10-14-2023 Episodic Spondylosis; intervertebral disc disorders; other back problems (20 sources) Spinal stenosis of lumbar region; Translations: [Spinal stenosis, lumbar region without neurogenic claudication] Onset: 01-24-2018 Resolved: 08-05-2021 Episodic Unclassified (1 source) Low back pain, unspecified M54.50 Onset: 08-05-2021 Resolved: 08-05-2021 Unclassified (1 source) CONTACT W/AND (SUSP) EXPOS COVID-19; Translations: [CONTACT W/AND (SUSP) EXPOS COVID-19] Onset: 02-03-2022 Results Test Name Value Interpretation Reference Range Facility Insurance Correspondenceon 0 12-03-2023 Insurance Correspondence [id number] 3#[facility] Consent for Procedure/Surger yon 11-17-2023 Consent for Procedure/Surgery [id number] 03#1.00[facility] Facesheeton 11-17-2023 Facesheet [id number] 8#1.00[facility] Ambulatory Visit Summaryon 0 11-16-2023 Ambulatory Visit Summary MARCELDEJACELESTINO :1970 Visit Date:11/16/2023 Ambulatory Visit Instructions Your Care Team Attending Physician - ROSENDO OROURKE, Michel Lee Primary Care Physician - Sharon OROURKE, Donna Referring Physician - Sharon OROURKE, Donna This Is Your Medications List Contact prescribing physician if questions or concerns albuterol (Ventolin HFA 90 mcg/inh Aerosol-Adpt) aspirin (aspirin 81 mg Oral EC Tab) budesonide-formoter ol (Symbicort 160/4.5 inhalation aerosol with adapter) cetirizine (cetirizine 10 mg Tab) diazepam (diazepam 2 mg Tab) diclofenac (diclofenac sodium 75 mg Oral EC Tab) fluoxetine (FLUoxetine 40 mg Cap) gabapentin (gabapentin 600 mg Tab) liothyronine (liothyronine 5 mcg Tab) multivitamin (Multi Vitamins oral tablet) Procedures Performed Arthroscopy of shoulder, Fusion of lumbar spine, History of lumbar laminectomy, LASIK - laser assisted in situ keratomileusis. Discharge Vitals Heart Rate (Peripheral) 72 Respiratory Rate 16 Blood Pressure 118/78 Height 172.72 cm Height 68 in Weight 94 kg Weight 206.8 lb BMI 31.51 Medications What How Much When Instructions Unchanged albuterol (Ventolin HFA 90 mcg/ inh Aerosol-Adpt) 2 Puffs Inhalation Every 4 hours as needed for Shortness of breath or wheezing Contact prescribing physician if questions or concerns Unchanged aspirin (aspirin 81 mg Oral EC Tab) 1 Tablets By Mouth Every day Contact prescribing physician if questions or concerns Unchanged budesonide-formoter ol (Symbicort 160/ 4.5 inhalation aerosol with adapter) 2 Puffs Inhalation 2 times a day Contact prescribing physician if questions or concerns Unchanged cetirizine (cetirizine 10 mg Tab) 1 Tablets By Mouth Every day as needed for Allergy symptoms Contact prescribing physician if questions or concerns Unchanged diazepam (diazepam 2 mg Tab) 1 Tablets By Mouth Every day as needed for as needed for anxiety Contact prescribing physician if questions or concerns Unchanged diclofenac (diclofenac sodium 75 mg Oral EC Tab) 1 Tablets By Mouth 2 times a day Contact prescribing physician if questions or concerns Unchanged fluoxetine (FLUoxetine 40 mg Cap) 1 Capsules By Mouth Every day Contact prescribing physician if questions or concerns Unchanged gabapentin (gabapentin 600 mg Tab) 1 Tablets By Mouth 3 times a day Contact prescribing physician if questions or concerns Unchanged liothyronine (liothyronine 5 mcg Tab) 2 Tablets By Mouth Every day Contact prescribing physician if questions or concerns Unchanged multivitamin (Multi Vitamins oral tablet) 1 Tablets By Mouth Every day Contact prescribing physician if questions or concerns Allergies No Known Allergies No Known Medication Allergies Problems Ongoing - Any problem that you are currently receiving treatment for. Alcoholic fatty liver Allergic rhinitis Anemia BMI 31.0-31.9,adult Chronic pain Dyslipidemia HTN (hypertension) Hyperhidrosis Lumbar radiculopathy Lumbosacral spondylosis Obesity Spinal stenosis of lumbar region Patient Survey You may receive a survey via text or e-mail asking about your office visit. Please share your experience with us by completing your survey. We appreciate your feedback and thank you for choosing us for your care. Normal [facility] Alanine aminotransferase [En zymatic activity/volume] in Serum or PlasmaOrdered By: Qasim Mancilla on 10-28-2023 ALT [Catalytic activity/Vol] 7 U/L 7-52 [facility] Albumin [Mass/volume] in Ser um or Plasma by Bromocresol green (BCG) dye binding methoOrdered By: Qasim Mancilla on 10-28-2023 Albumin BCG dye [Mass/Vol] 3.9 g/dL 3.5-5.7 [facility] Alkaline phosphatase [Enzyma tic activity/volume] in Serum or PlasmaOrdered By: Qasim Mancilla on 10-28-2023 ALP [Catalytic activity/Vol] 57 U/L 34-104 [facility] Aspartate aminotransferase [ Enzymatic activity/volume] in Serum or PlasmaOrdered By: Qasim Mancilla on 10-28-2023 AST [Catalytic activity/Vol] 7 U/L 13-39 [facility] Basophils Auto (Bld) [#/Vol] Ordered By: Qasmi Mancilla on 10-28-2023 Basophils (Bld) [#/Vol] 0.0 10*3/uL 0.0-0.2 [facility] Basophils/100 WBC Auto (Bld) Ordered By: Qasim Mancilla on 10-28-2023 Basophils/100 WBC (Bld) 0.3 % . [facility] Bilirubin.total [Mass/volume ] in Serum or PlasmaOrdered By: Qasim Mancilla on 10-28-2023 Bilirubin [Mass/Vol] 0.5 mg/dL 0.3-1.0 [facility] Calcium [Mass/volume] in Ser um or PlasmaOrdered By: Qasim Mancilla on 10-28-2023 Calcium [Mass/Vol] 8.8 mg/dL 8.6-10.[address] [facility] Carbon dioxide, total [Moles /volume] in Serum or PlasmaOrdered By: Qasim Mancilla on 10-28-2023 CO2 [Moles/Vol] 27.8 mmol/L 21.0-31.0 [facility] Chloride [Moles/volume] in S felicita or PlasmaOrdered By: Qasim Mancilla on 10-28-2023 Chloride [Moles/Vol] 106 mmol/L 98-107 [facility] Complete Blood Count Auto Di ffon 10-28-2023 Basophils (Bld) [#/Vol] 0.0 10*3/uL Normal 0.0-0.2 [facility] Comment on above: Result Comment: PERF ORMED BY: [place] [address] PATHOLOGIST [employer] JUDGE MARK ARIAS M.D. Performed By: #### C BC, CMP, PAB #### [address] Basophils/100 WBC (Bld) 0.3 % Normal . [facility] Comment on above: Performed By: #### C BC, CMP, PAB #### [place] [address] [place] Eosinophils (Bld) [#/Vol] 0.0 10*3/uL Normal 0.0-0.45 [facility] Comment on above: Performed By: #### C BC, CMP, PAB #### [place] [address] [place] Eosinophils/100 WBC (Bld) 0.4 % Normal . [facility] Comment on above: Performed By: #### C BC, CMP, PAB #### [address] Erythrocyte distribution width (RBC) [Ratio] 13.4 % Normal 12.0-14.8 [facility] Comment on above: Performed By: #### C BC, CMP, PAB #### [address] Hematocrit (Bld) [Volume fraction] 38.3 % Low 38.8-50.0 [facility] Comment on above: Performed By: #### C BC, CMP, PAB #### [facility] [address] Hemoglobin (Bld) [Mass/Vol] 12.7 g/dL Low 13.0-17.0 [facility] Comment on above: Performed By: #### C BC, CMP, PAB #### [address] Lymphocytes (Bld) [#/Vol] 2.1 10*3/uL Normal 1.00-4.8 [facility] [facility]ician Group Comment on above: Performed By: #### C BC, CMP, PAB #### [address] Lymphocytes/100 WBC (Bld) 28.7 % Normal . [facility] Comment on above: Performed By: #### C BC, CMP, PAB #### [address] MCH (RBC) [Entitic mass] 30.9 pg Normal 27.5-35.2 [facility] Comment on above: Performed By: #### C BC, CMP, PAB #### [address] MCV (RBC) [Entitic vol] 93.0 fL Normal 83.5-101 T [facility] Comment on above: Performed By: #### C BC, CMP, PAB #### [address] Mean Corpuscular HGB Conc 33.3 g/dL Normal 32.5-35.6 [facility] Comment on above: Performed By: #### C BC, CMP, PAB #### [place] [address] [place] Monocytes (Bld) [#/Vol] 0.7 10*3/uL Normal 0.0-0.8 [facility] Comment on above: Performed By: #### C BC, CMP, PAB #### [place] [address] [place] Monocytes/100 WBC (Bld) 9.6 % Normal . T [facility] Comment on above: Performed By: #### C BC, CMP, PAB #### [facility] [address] Neutrophils (Bld) [#/Vol] 4.5 10*3/uL Normal 1.8-7.7 [facility] Comment on above: Performed By: #### C BC, CMP, PAB #### [facility] [address] Neutrophils/100 WBC (Bld) 61.0 % Normal . [facility] Comment on above: Performed By: #### C BC, CMP, PAB #### [facility] [address] NRBC% 0.1 /100{WBC} Normal 0-0.5 The [facility] Comment on above: Performed By: #### C BC, CMP, PAB #### [facility] [address] Platelet mean volume (Bld) [Entitic vol] 8.7 fL Normal 6.6-10.1 The [facility] Comment on above: Performed By: #### C BC, CMP, PAB #### [facility] [address] [place] [id number] [place] Platelets (Bld) [#/Vol] 227 10*3/uL Normal 150-450 [facility] Comment on above: Performed By: #### C BC, CMP, PAB #### [facility] [address] [place] [id number] [place] RBC (Bld) [#/Vol] 4.12 10*6/uL Normal 3.90-5.60 The [facility] Comment on above: Performed By: #### C BC, CMP, PAB #### [facility] [address] [place] [id number] [place] WBC (Bld) [#/Vol] 7.4 10*3/uL Normal 4.1-10.5 The [facility] Comment on above: Performed By: #### C BC, CMP, PAB #### [facility] [address] Comprehensive Metabolic Pane brent 10-28-2023 Albumin [Mass/Vol] 3.9 g/dL Normal 3.5-5.7 The [facility] Comment on above: Performed By: #### C BC CMP, PAB #### [address] Albumin/Globulin [Mass ratio] 1.7 {ratio} Normal [facility] Comment on above: Performed By: #### C BC, CMP, PAB #### [address] ALP [Catalytic activity/Vol] 57 U/L Normal 34-104 [facility] Comment on above: Performed By: #### C BC CMP, PAB #### [address] ALT [Catalytic activity/Vol] 7 U/L Normal 7-52 [facility] Comment on above: Performed By: #### C BC CMP, PAB #### [address] Anion gap [Moles/Vol] 11.6 mmol/L Normal 6.0-15.0 [facility] Comment on above: Performed By: #### C BC CMP, PAB #### [address] AST [Catalytic activity/Vol] 7 U/L Low 13-39 [facility] Comment on above: Performed By: #### C BC, CMP, PAB #### [address] Bilirubin [Mass/Vol] 0.5 mg/dL Normal 0.3-1.0 [facility] Comment on above: Performed By: #### C BC CMP, PAB #### [address] Calcium [Mass/Vol] 8.8 mg/dL Normal 8.6-10.3 The [facility] Comment on above: Performed By: #### C BC, CMP, PAB #### [place] [address] [place] Chloride [Moles/Vol] 106 mmol/L Normal 98-107 [facility] Comment on above: Performed By: #### C HALINA GILBERT, PAB #### [address] CO2 [Moles/Vol] 27.8 mmol/L Normal 21.0-31.0 [facility] Comment on above: Performed By: #### C HALINA GILBERT, PAB #### [address] Creatinine [Mass/Vol] 0.89 mg/dL Normal 0.70-1.30 [facility] Comment on above: Performed By: #### C HALINA GILBERT, PAB #### [address] Creatinine Clr Calc Pharmacy 103.39 Normal [facility] Comment on above: Performed By: #### C HALINA GILBERT, PAB #### [address] GFR/1.73 sq M.predicted MDRD (S/P/Bld) [Vol rate/Area] mL/min/{1.73_m2} Normal [facility] Physician [facility] Comment on above: Performed By: #### C HALINA GILBERT, PAB #### [address] Globulin (S) [Mass/Vol] 2.3 g/dL Normal T he [facility] Comment on above: Performed By: #### C HALINA GILBERT, PAB #### [address] Glucose [Mass/Vol] 109 mg/dL High 70-100 The [facility] Comment on above: Result Comment: [place] Glucose Reference Range is dependent on time and content of last meal. Glucose of more than 200 mg/dL in a nonstressed, ambulatory subject supports the diagnosis of Diabetes Mellitus. ADA recommended reference range Performed By: #### C HALINA GILBERT, PAB #### [address] Potassium [Moles/Vol] 4.4 mmol/L Normal 3.5-5.1 [facility] Comment on above: Performed By: #### C BC, CMP, PAB #### [facility] [address] [place] [id number] [place] Protein [Mass/Vol] 6.2 g/dL Low 6.4-8.9 The [facility] Comment on above: Performed By: #### C BC, CMP, PAB #### [facility] [address] [place] [id number] [place] Sodium [Moles/Vol] 141 mmol/L Normal 136-145 [facility] Comment on above: Performed By: #### C BC, CMP, PAB #### [facility] [address] [place] [id number] [place] Urea nitrogen [Mass/Vol] 26 mg/dL High 7-25 [facility] Comment on above: Performed By: #### C BC, CMP, PAB #### [facility] [address] Creatinine [Mass/volume] in Serum or PlasmaOrdered By: Qasim Mancilla on 10-28-2023 Creatinine [Mass/Vol] 0.89 mg/dL 0.70-1.30 [facility] Eosinophils Auto (Bld) [#/Vo l]Ordered By: Qasim Mancilla on 10-28-2023 Eosinophils (Bld) [#/Vol] 0.0 10*3/uL 0.0-0.45 [facility] Eosinophils/100 WBC Auto (Bl d)Ordered By: Qasim Mancilla on 10-28-2023 Eosinophils/100 WBC (Bld) 0.4 % . [facility] Erythrocyte distribution wid th Auto (RBC) [Ratio]Ordered By: Qasim Mancilla on 10-28-2023 Erythrocyte distribution width (RBC) [Ratio] 13.4 % 12.0-14.8 [facility] Globulin Calc (S) [Mass/Vol] Ordered By: Qasim Mancilla on 10-28-2023 Globulin (S) [Mass/Vol] 2.3 g/dL [facility] Glucose [Mass/volume] in Ser um or PlasmaOrdered By: Qasim Mancilla on 10-28-2023 Glucose [Mass/Vol] 109 mg/dL 70-[address] [facility] Comment on above: ADA recommended refe rence rangeRandom Glucose Reference Range is dependent on time and content of last meal. Glucose of more than 200 mg/dL in a nonstressed, ambulatory subject supports the diagnosis of Diabetes Mellitus. Hematocrit Auto (Bld) [Volum e fraction]Ordered By: Qasim Mancilla on 10-28-2023 Hematocrit (Bld) [Volume fraction] 38.3 % 38.8-50.0 [facility] Hemoglobin [Mass/volume] in BloodOrdered By: Qasim Mancilla on 10-28-2023 Hemoglobin (Bld) [Mass/Vol] 12.7 g/dL 13.0-17.0 [facility] Leukocytes [#/volume] correc deon for nucleated erythrocytes in Blood by Automated counOrdered By: Qasim Mancilla on 10-28-2023 WBC corrected for nucl RBC Auto (Bld) [#/Vol] 7.4 10*3/uL 4.1-10.5 [facility] Lymphocytes Auto (Bld) [#/Vo l]Ordered By: Qasim Mancilla on 10-28-2023 Lymphocytes (Bld) [#/Vol] 2.1 10*3/uL 1.00-4.8 [facility] Lymphocytes/100 WBC Auto (Bl d)Ordered By: Qasim Mancilla on 10-28-2023 Lymphocytes/100 WBC (Bld) 28.7 % . [facility] MCH Auto (RBC) [Entitic mass ]Ordered By: Qasim Mancilla on 10-28-2023 MCH (RBC) [Entitic mass] 30.9 pg 27.5-35.2 [facility] MCHC Auto (RBC) [Mass/Vol]Or dered By: Qasim Mancilla on 10-28-2023 MCHC (RBC) [Mass/Vol] 33.3 g/dL 32.5-35.6 [facility] MCV Auto (RBC) [Entitic vol] Ordered By: Qasim Mancilla on 10-28-2023 MCV (RBC) [Entitic vol] 93.0 fL 83.5-101 F [facility] Monocytes Auto (Bld) [#/Vol] Ordered By: Qasim Mancilla on 10-28-2023 Monocytes (Bld) [#/Vol] 0.7 10*3/uL 0.0-0.8 [facility] Monocytes/100 WBC Auto (Bld) Ordered By: Qasim Mancilla on 10-28-2023 Monocytes/100 WBC (Bld) 9.6 % . F [facility] Neutrophils Auto (Bld) [#/Vo l]Ordered By: Qasim Mancilla on 10-28-2023 Neutrophils (Bld) [#/Vol] 4.5 10*3/uL 1.8-7.7 [facility] Neutrophils/100 WBC Auto (Bl d)Ordered By: Qasim Mancilla on 10-28-2023 Neutrophils/100 WBC (Bld) 61.0 % . [facility] No Panel InformationOrdered By: Qasim Mancilla on 10-28-2023 Estimated GFR (CKD-EPI) > 60.0 mL/Min [facility] Creatinine Clearance (Chem 103.39 [facility] Nucleated erythrocytes [Pres ence] in Blood by Automated countOrdered By: Qasim Mancilla on 10-28-2023 Nucleated RBC Auto Ql (Bld) 0.1 /100{WBC} 0-0.5 [facility] Platelet mean volume Auto (B ld) [Entitic vol]Ordered By: Qasim Mancilla on 10-28-2023 Platelet mean volume (Bld) [Entitic vol] 8.7 fL 6.6-10.1 [facility] Platelets Auto (Bld) [#/Vol] Ordered By: Qasim Mancilla on 10-28-2023 Platelets (Bld) [#/Vol] 227 10*3/uL 150-450 [facility] Potassium [Moles/volume] in Serum or PlasmaOrdered By: Qasim Mancilla on 10-28-2023 Potassium [Moles/Vol] 4.4 mmol/L 3.5-5.1 [facility] Prealbuminon 03-14-2024 Prealbumin [Mass/Vol] 25.1 mg/dL Normal 17.0-34.0 [facility] Comment on above: Result Comment: PERF ORMED BY: [facility] [address] [place] [address] PATHOLOGIST [employer]GE MARK ARIAS M.D. Performed By: #### C BC, CMP, PAB #### [facility] [address] Prealbumin [Mass/volume] in Serum or PlasmaOrdered By: Qasim Mancilla on 10-28-2023 Prealbumin [Mass/Vol] 25.1 mg/dL 17.0-34.0 [facility] Protein [Mass/volume] in Ser um or PlasmaOrdered By: Qasim Mancilla on 10-28-2023 Protein [Mass/Vol] 6.2 g/dL 6.4-8.[address] [facility] RBC Auto (Bld) [#/Vol]Ordere d By: Qasim Mancilla on 10-28-2023 RBC (Bld) [#/Vol] 4.12 10*6/uL 3.90-5.60 [facility] Serum or plasma albumin/glob ulin mass ratioOrdered By: Qasim Mancilla on 10-28-2023 Albumin/Globulin [Mass ratio] 1.7 {ratio} [facility] Serum or plasma anion gap de terminationOrdered By: Qasim Mancilla on 10-28-2023 Anion gap [Moles/Vol] 11.6 mmol/L 6.0-15.0 [facility] Sodium [Moles/volume] in Ser um or PlasmaOrdered By: Qasim Mancilla on 10-28-2023 Sodium [Moles/Vol] 141 mmol/L 136-[address] [facility] Urea nitrogen [Mass/volume] in Serum or PlasmaOrdered By: Qasim Mancilla on 10-28-2023 Urea nitrogen [Mass/Vol] 26 mg/dL 7-25 [facility] WBC Auto (Bld) [#/Vol]Ordere d By: Qasim Mancilla on 03-14-2024 WBC (Bld) [#/Vol] 7.4 10*3/uL 4.1-10.[address] [facility] BASIC METABOLIC PANLon 10-24 Anion gap [Moles/Vol] 9 mmol/L Normal 5-15 [facility] Comment on above: Performed By: #### H H, BMP ####[facility] ([id number])[address] [address] [place] [address] Calcium [Mass/Vol] 9.1 mg/dL Normal 8.5-10.5 [facility] Comment on above: Performed By: #### H H, BMP ####[facility] ([id number])[address] [address] Chloride [Moles/Vol] 104 mmol/L Normal 98-109 [facility] Comment on above: Performed By: #### H H, BMP ####[facility] ([id number])[address] [address] [place] [address] CO2 [Moles/Vol] 28 mmol/L Normal 22-32 [facility] Comment on above: Performed By: #### H H, BMP ####[facility] ([id number])[address] [address] [place] [address] Creatinine [Mass/Vol] 0.69 mg/dL Normal 0.60-1.30 [facility] Comment on above: Result Comment: METH OD TRACEABLE TO IDMS STANDARD Performed By: #### H H, BMP ####[facility] ([id number])[address] [address] [place] [address] eGFR (CKD-EPI) NON-RACE DEPENDENT >90 Normal >59 [facility] Comment on above: Result Comment: Reported eGFR is based on the CKD-EPI 2020 equation that does not use a race coefficient. Performed By: #### H H, BMP ####[facility] ([id number])[address] [place] [address] Glucose [Mass/Vol] 102 mg/dL High 65-99 [facility] Comment on above: Performed By: #### H H, BMP ####[facility] ([id number])[address] [address] [address] Potassium [Moles/Vol] 3.9 mmol/L Normal 3.5-5.0 [facility] Comment on above: Performed By: #### H H, BMP ####[facility] ([id number])[address], [address], [place] [address] Sodium [Moles/Vol] 141 mmol/L Normal 134-146 [facility] Comment on above: Performed By: #### H H, BMP ####[facility] ([id number])[address], [address] [address] Urea nitrogen [Mass/Vol] 20 mg/dL Normal 5-23 [facility] Comment on above: Performed By: #### H H, BMP ####[facility] ([id number])[address], [address] [place] [address], [place] [address] HGB AND HCTon 10-25-2023 Hematocrit (Bld) [Volume fraction] 36.2 % Low 39-49 [facility] Comment on above: Performed By: #### H H, BMP ####[facility] ([id number])[address], [address] [address] Hemoglobin (Bld) [Mass/Vol] 12.1 g/dL Low 13.0-17.0 [facility] Comment on above: Performed By: #### H H, BMP ####[facility] ([id number])[address], [address] [place] [address] BASIC METABOLIC PANLon 10-23 Anion gap [Moles/Vol] 10 mmol/L Normal 5-15 [facility] Comment on above: Performed By: #### H H, BMP ####[facility] ([id number])[address] [address] [place] [address] Calcium [Mass/Vol] 8.7 mg/dL Normal 8.5-10.5 [facility] Comment on above: Performed By: #### H H, BMP ####[facility] ([id number])[address] [address] [place] [address] Chloride [Moles/Vol] 107 mmol/L Normal 98-109 [facility] Comment on above: Performed By: #### H H, BMP ####[facility] ([id number])[address] [address] [place] [address] CO2 [Moles/Vol] 28 mmol/L Normal 22-32 [facility] Comment on above: Performed By: #### H H, BMP ####[facility] ([id number])[address] [address] [place] [address] Creatinine [Mass/Vol] 0.73 mg/dL Normal 0.60-1.30 [facility] Comment on above: Result Comment: METH OD TRACEABLE TO IDMS STANDARD Performed By: #### H H, BMP ####[facility] ([id number])[address] [address] eGFR (CKD-EPI) NON-RACE DEPENDENT >90 Normal >59 [facility] Comment on above: Result Comment: Reported eGFR is based on the CKD-EPI 2020 equation that does not use a race coefficient. Performed By: #### H H, BMP ####[facility] ([id number])[address] [address] [place] [address] Glucose [Mass/Vol] 94 mg/dL Normal 65-99 [facility] Comment on above: Performed By: #### H H, BMP ####[facility] ([id number])[address], [address] [address] Potassium [Moles/Vol] 4.1 mmol/L Normal 3.5-5.0 [facility] Comment on above: Performed By: #### H H, BMP ####[facility] ([id number])[address], [address] [address] Sodium [Moles/Vol] 145 mmol/L Normal 134-146 [facility] Comment on above: Performed By: #### H H, BMP ####[facility] ([id number])[address], [address] [place] [address] Urea nitrogen [Mass/Vol] 20 mg/dL Normal 5-23 [facility] Comment on above: Performed By: #### H H, BMP ####[facility] ([id number])[address], [address] [place] [address] HGB AND HCTon 10-24-2023 Hematocrit (Bld) [Volume fraction] 35.0 % Low 39-49 [facility] Comment on above: Performed By: #### H H, BMP ####[facility] ([id number])[address], [address] [place] [address] Hemoglobin (Bld) [Mass/Vol] 11.9 g/dL Low 13.0-17.0 [facility] Comment on above: Performed By: #### H H, BMP ####[facility] ([id number])[address], [address], [place] [address] BASIC METABOLIC PANLon 10-22 Anion gap [Moles/Vol] 6 mmol/L Normal 5-15 [facility] Comment on above: Performed By: #### H H, BMP ####[facility] ([id number])[address], [address] [address] Calcium [Mass/Vol] 8.4 mg/dL Low 8.5-10.5 [facility] Comment on above: Performed By: #### H H, BMP ####[facility] ([id number])[address], [address] [place] [address] Chloride [Moles/Vol] 106 mmol/L Normal 98-109 [facility] Comment on above: Performed By: #### H H, BMP ####[facility] ([id number])[address], [address], [place] [address] CO2 [Moles/Vol] 29 mmol/L Normal 22-32 [facility] Comment on above: Performed By: #### H H, BMP ####[facility] ([id number])[address], [address] [place] [address] Creatinine [Mass/Vol] 0.76 mg/dL Normal 0.60-1.30 [facility] Comment on above: Result Comment: METH OD TRACEABLE TO IDMS STANDARD Performed By: #### H H, BMP ####[facility] ([id number])[address] [address] [place] [address] eGFR (CKD-EPI) NON-RACE DEPENDENT >90 Normal >59 [facility] Comment on above: Result Comment: Reported eGFR is based on the CKD-EPI 2020 equation that does not use a race coefficient. Performed By: #### H H, BMP ####[facility] ([id number])[address] [address] [place] [address] Glucose [Mass/Vol] 99 mg/dL Normal 65-99 [facility] Comment on above: Performed By: #### H H, BMP ####[facility] ([id number])[address], [address] [place] [address] Potassium [Moles/Vol] 4.1 mmol/L Normal 3.5-5.0 [facility] Comment on above: Performed By: #### H H, BMP ####[facility] ([id number])[address], [address] [place] [address] Sodium [Moles/Vol] 141 mmol/L Normal 134-146 [facility] Comment on above: Performed By: #### H H, BMP ####[facility] ([id number])[address], [address] [place] [address] Urea nitrogen [Mass/Vol] 15 mg/dL Normal 5-23 [facility] Comment on above: Performed By: #### H H, BMP ####[facility] ([id number])[address], [address] [place] [address] HGB AND HCTon 10-23-2023 Hematocrit (Bld) [Volume fraction] 36.0 % Low 39-49 [facility] Comment on above: Performed By: #### H H, BMP ####[facility] ([id number])[address], [address] [place] [address] Hemoglobin (Bld) [Mass/Vol] 12.0 g/dL Low 13.0-17.0 [facility] Comment on above: Performed By: #### H H, BMP ####[facility] ([id number])[address], [address] [place] [address] MR LUMBAR SPINE WO CONTon MR LUMBAR [...] Avitia MD on 10/23/2023 2:26 PM Normal [facility] BASIC METABOLIC PANLon 10-21 Anion gap [Moles/Vol] 5 mmol/L Normal 5-15 [facility] Comment on above: Performed By: #### H H, BMP ####[facility] ([id number])[address] [address] [place] [address] Calcium [Mass/Vol] 8.5 mg/dL Normal 8.5-10.5 [facility] Comment on above: Performed By: #### H H, BMP ####[facility] ([id number])[address] [address] [place] [address] Chloride [Moles/Vol] 108 mmol/L Normal 98-109 [facility] Comment on above: Performed By: #### H H, BMP ####[facility] ([id number])[address] [address] [place] [address] CO2 [Moles/Vol] 28 mmol/L Normal 22-32 [facility] Comment on above: Performed By: #### H H, BMP ####[facility] ([id number])[address], [address] [place] [id number] Creatinine [Mass/Vol] 0.77 mg/dL Normal 0.60-1.30 [facility] Comment on above: Result Comment: METH OD TRACEABLE TO IDMS STANDARD Performed By: #### H H, BMP ####[facility] [facility] ([id number])[address] [address] [place] [address] eGFR (CKD-EPI) NON-RACE DEPENDENT >90 Normal >59 [facility] Comment on above: Result Comment: Reported eGFR is based on the CKD-EPI 2020 equation that does not use a race coefficient. Performed By: #### H H, BMP ####[facility] ([id number])[address] [address] [place] [address] Glucose [Mass/Vol] 112 mg/dL High 65-99 [facility] Comment on above: Performed By: #### H H, BMP ####[facility] ([id number])[address] [address] [place] [address] Potassium [Moles/Vol] 4.6 mmol/L Normal 3.5-5.0 [facility] Comment on above: Performed By: #### H H, BMP ####[facility] ([id number])[address] [address] [place] [address] Sodium [Moles/Vol] 141 mmol/L Normal 134-146 [facility] Comment on above: Performed By: #### H H, BMP ####[facility] ([id number])[address] [address] [place] [address]1992 Urea nitrogen [Mass/Vol] 12 mg/dL Normal 5-23 [facility] Comment on above: Performed By: #### H H, BMP ####[facility] ([id number])[address] [address] [place] [address] FL FLUORO GUIDANCE SPINAL PU NCTURE OPERATIVEon [...] Vitor Mirza on 10/22/2023 12:33 PM Normal [facility] HGB AND HCTon 10-22-2023 Hematocrit (Bld) [Volume fraction] 37.0 % Low 39-49 [facility] Comment on above: Performed By: #### H H, BMP #### [facility] ([id number]) [address], [address] [place] [address] Hemoglobin (Bld) [Mass/Vol] 12.6 g/dL Low 13.0-17.0 [facility] Comment on above: Performed By: #### H H, BMP #### [facility] ([id number]) [address], [address] [place] [address] Bacteria identified Cx Nom ( U)on 10-09-2023 Service comment (Unsp spec) [Interp] NO GROWTH AT <1000 CFU/mL [facility] ABO Rh Repeaton 10-08-2023 ABO O [facility] Rh Nom (Bld) Positive [facility] APTTon 10-08-2023 aPTT Coag (PPP) [Time] 40 s High [facility] BASIC METABOLIC PANLon 10-08 Anion gap [Moles/Vol] 9 mmol/L Normal 5-15 [facility] Comment on above: Performed By: #### C BCA, BMP, PINR, 43307-7 #### [facility] ([id number]) [address], [address] [place] [address] Calcium [Mass/Vol] 9.4 mg/dL Normal 8.5-10.5 [facility] Comment on above: Performed By: #### C BCA, BMP, PINR, 35278-4 #### [facility] ([id number]) [address], [address] [place] [address] Chloride [Moles/Vol] 104 mmol/L Normal 98-109 [facility] Comment on above: Performed By: #### C BCA, BMP, PINR, 50092-9 #### [facility] ([id number]) [address] [address] [place] [address] CO2 [Moles/Vol] 28 mmol/L Normal 22-32 [facility] Comment on above: Performed By: #### C BCA, BMP, PINR, 68835-5 #### [facility] ([id number]) [address] [address] Creatinine [Mass/Vol] 0.95 mg/dL Normal 0.60-1.30 [facility] Comment on above: Result Comment: METH OD TRACEABLE TO IDMS STANDARD Performed By: #### C BCA, BMP, PINR, 23084-3 #### [facility] ([id number]) [address] [address] eGFR (CKD-EPI) NON-RACE DEPENDENT >90 Normal >59 [facility] Comment on above: Result Comment: Reported eGFR is based on the CKD-EPI 2020 equation that does not use a race coefficient. Performed By: #### C BCA, BMP, PINR, 37445-0 #### [facility] ([id number]) [address] [address] [place] [address] Glucose [Mass/Vol] 96 mg/dL Normal 65-99 [facility] Comment on above: Performed By: #### C BCA, BMP, PINR, 89698-5 #### [facility] ([id number]) [address] [address] Potassium [Moles/Vol] 4.1 mmol/L Normal 3.5-5.0 [facility] Comment on above: Performed By: #### C BCA, BMP, PINR, 96814-5 #### [facility] ([id number]) [address], [address] [place] [address] Sodium [Moles/Vol] 141 mmol/L Normal 134-146 [facility] Comment on above: Performed By: #### C BCA, BMP, PINR, 85180-9 #### [facility] ([id number]) [address], [address] [place] [address] Urea nitrogen [Mass/Vol] 13 mg/dL Normal 5-23 [facility] Comment on above: Performed By: #### C BCA, BMP, PINR, 73497-8 #### [facility] ([id number]) [address], [address] [place] [address] Basic Metabolic Panelon 09-17 Anion gap [Moles/Vol] 9 mmol/L 5 - 15 mmol/L [facility] Calcium [Mass/Vol] 9.4 mg/dL 8.5 - 10. 5 mg/dL [facility] Chloride [Moles/Vol] 104 mmol/L 98 - 10 9 mmol/L [facility] CO2 [Moles/Vol] 28 mmol/L 22 - 32 mmol/L [facility] Creatinine [Mass/Vol] 0.95 mg/dL 0.60 - 1.30 mg/dL [facility] Comment on above: METHOD TRACEABLE TO IDIA STANDARD eGFR (CKD-EPI)non-race dependent - PINF [facility] Comment on above: Reported eGFR is based on the CKD-EPI 2020 equation that does not use a race coefficient. Glucose [Mass/Vol] 96 mg/dL 65 - 99 mg/dL [facility] Potassium [Moles/Vol] 4.1 mmol/L 3.5 - 5.0 mmol/L [facility] Sodium [Moles/Vol] 141 mmol/L 134 - 146 mmol/L [facility] Urea nitrogen [Mass/Vol] 13 mg/dL 5 - 23 mg/dL [facility] CBC AND AUTO DIFFon 10-08-19 ABSOLUTE BASOPHIL 0.0 X10E9/L Normal 0.0-0.2 [facility] Comment on above: Performed By: #### C BCA, BMP, PINR, 94503-0 #### [facility] ([id number]) [address], [address] [place] [address] ABSOLUTE NEUTROPHIL 4.2 X10E9/L Normal 1.5-6.6 [facility] Comment on above: Performed By: #### C BCA, BMP, PINR, 30776-2 #### [facility] ([id number]) [address], [address] [place] [address] Basophils/100 WBC (Bld) 0.7 % Normal [facility] Comment on above: Performed By: #### C BCA, BMP, PINR, 51118-7 #### [facility] ([id number]) [address], [address] [place] [address] Eosinophils (Bld) [#/Vol] 0.1 10*3/uL Normal 0.0-0.4 [facility] Comment on above: Performed By: #### C BCA, BMP, PINR, 90931-0 #### [facility] ([id number]) [address], [address] [place] [address] Eosinophils/100 WBC (Bld) 1.1 % Normal [facility] Comment on above: Performed By: #### C BCA, BMP, PINR, 24766-0 #### [facility] ([id number]) [address], [address] [place] [address] Erythrocyte distribution width (RBC) [Ratio] 14.0 % Normal 11.5-15.0 [facility] Comment on above: Performed By: #### C BCA, BMP, PINR, 87292-3 #### [facility] ([id number]) [address], [address] [place] [address] Hematocrit (Bld) [Volume fraction] 39.4 % Normal 39-49 [facility] Comment on above: Performed By: #### C BCA, BMP, PINR, 58415-5 #### [facility] ([id number]) [address], [address] [place] [address] Hemoglobin (Bld) [Mass/Vol] 13.3 g/dL Normal 13.0-17.0 [facility] Comment on above: Performed By: #### C BCA, BMP, PINR, 83873-5 #### [facility] ([id number]) [address] [facility] [address] [place] [address] Lymphocytes (Bld) [#/Vol] 2.2 10*3/uL Normal 1.0-3.5 [facility] Comment on above: Performed By: #### C BCA, BMP, PINR, 86257-6 #### [facility] ([id number]) [address] [address] [place] [address] Lymphocytes/100 WBC (Bld) 31.4 % Normal [facility] Comment on above: Performed By: #### C BCA, BMP, PINR, 31502-9 #### [facility] ([id number]) [address], [address] [place] [address] MCH (RBC) [Entitic mass] 31.2 pg Normal 27-34 [facility] Comment on above: Performed By: #### C BCA, BMP, PINR, 06501-9 #### [facility] ([id number]) [address], [address] [place] [address] MCHC (RBC) [Mass/Vol] 33.7 g/dL Normal 32-36 [facility] Comment on above: Performed By: #### C BCA, BMP, PINR, 03245-7 #### [facility] ([id number]) [address], [address] [place] [address] MCV (RBC) [Entitic vol] 93 fL Normal 80-100 P [facility] Comment on above: Performed By: #### C BCA, BMP, PINR, 67195-4 #### [facility] ([id number]) [address], [address] [place] [address] Monocytes (Bld) [#/Vol] 0.5 10*3/uL Normal 0-0.9 [facility] Comment on above: Performed By: #### C BCA, BMP, PINR, 73308-5 #### [facility] ([id number]) [address], [address] [place] [address] Monocytes/100 WBC (Bld) 7.2 % Normal [facility] Comment on above: Performed By: #### C BCA, BMP, PINR, 37935-3 #### [facility] ([id number]) [address], [address] [place] [address] Neutrophils/100 WBC (Bld) 59.6 % Normal [facility] Comment on above: Performed By: #### C BCA, BMP, PINR, 45906-7 #### [facility] ([id number]) [address], [address] [facility] [place] [address] Platelet mean volume (Bld) [Entitic vol] 9.1 fL Normal 7-12 [facility] Comment on above: Performed By: #### C BCA, BMP, PINR, 30645-1 #### [facility] ([id number]) [address], [address] [facility] [place] [address] Platelets (Bld) [#/Vol] 212 10*3/uL Normal 150-450 [facility] Comment on above: Performed By: #### C BCA, BMP, PINR, 63440-2 #### [facility] ([id number]) [address], [address] [place] [address] RBC COUNT 4.25 X10E12/L Normal 4.10-5.70 [facility] Comment on above: Performed By: #### C BCA, BMP, PINR, 57368-8 #### [facility] ([id number]) [address], [address] [place] [address] WBC (Bld) [#/Vol] 7.1 10*3/uL Normal 4.0-11.0 [facility] Comment on above: Performed By: #### C FAHEEM, CRUZ, PINR, 56540-2 #### [facility] ([id number]) [address], [address] [place] [address] CBC auto differentialon 09-17 Basophils (Bld) [#/Vol] 0.0 10*3/uL [facility] Basophils/100 WBC (Bld) 0.7 % [facility] Eosinophils (Bld) [#/Vol] 0.1 10*3/uL [facility] Eosinophils/100 WBC (Bld) 1.1 % [facility] Erythrocyte distribution width (RBC) [Ratio] 14.0 % 11.5 - 15.0 % [facility] Hematocrit (Bld) [Volume fraction] 39.4 % 39 - 49 % [facility] Hemoglobin (Bld) [Mass/Vol] 13.3 g/dL 13.0 - 17.0 g/dL [facility] Lymphocytes (Bld) [#/Vol] 2.2 10*3/uL [facility] Lymphocytes/100 WBC (Bld) 31.4 % [facility] MCH (RBC) [Entitic mass] 31.2 pg 27 - 34 pg [facility] MCHC (RBC) [Mass/Vol] 33.7 g/dL 32 - 3 6 g/dL [facility] MCV (RBC) [Entitic vol] 93 fL 80 - 100 fL [facility] Monocytes (Bld) [#/Vol] 0.5 10*3/uL [facility] Monocytes/100 WBC (Bld) 7.2 % [facility] Neutrophils (Bld) [#/Vol] 4.2 10*3/uL [facility] Neutrophils/100 WBC (Bld) 59.6 % [facility] Platelet mean volume (Bld) [Entitic vol] 9.1 fL 7 - 12 fL [facility] Platelets (Bld) [#/Vol] 212 10*3/uL [facility] RBC (Bld) [#/Vol] 4.25 10*6/uL [facility] WBC corrected for nucl RBC Auto (Bld) [#/Vol] 7.1 [facility] ECG 12 leadon 10-08-2023 TRACEMASTERVUE [facility] No Panel Informationon 10-08 [facility] PROTIME AND INRon 10-08-2023 INR Coag (PPP) [Relative time] 1.0 {INR} Normal 0.8-1.1 [facility] Comment on above: Performed By: #### C FAHEEM, BMP, PINR, 57485-0 #### [facility] ([id number]) [address], [address] [place] [address] PT Coag (PPP) [Time] 11.1 s Normal 9.8-13.2 [facility] Comment on above: Performed By: #### C BCA, BMP, PINR, 75706-3 #### [facility] ([id number]) [address], [address] [place] [address] Protime & INRon 10-08-2023 INR Coag (PPP) [Relative time] 1.0 {INR} [facility] PT Coag (PPP) [Time] 11.1 s [facility] Type and screenon 10-08-2023 ABO O [facility] Rh Nom (Bld) Positive [facility] URINALYSISon 10-08-2023 Bilirubin Ql (U) Negative Normal NEG [facility] BLOOD/HGB Negative Normal NEG [facility] Color (U) YELLOW Normal YELLOW [facility] Glucose Ql (U) Negative Normal NEG [facility] Ketones Ql (U) Negative Normal NEG [facility] Leukocyte esterase Test strip Ql (U) Negative Normal NEG [facility] Nitrite Ql (U) Negative Normal NEG [facility] pH (U) 7.5 [pH] Normal 5.0-8.5 [facility] Protein Ql (U) Negative Normal NEG [facility] Specific gravity (U) [Rel density] 1.010 Normal 1.003-1.035 [facility] TURBIDITY CLEAR Normal CLEAR [facility] Urobilinogen (U) [Mass/Vol] mg/dL Normal <1.1 [facility] URINE CULTUREon 10-08-2023 Bacteria identified Cx Nom (U) CULTURE RESULTS NO GROWTH AT <1000 CFU/mL Normal [facility] Comment on above: Performed By: #### 6 30-4 #### [facility] ([id number]) [address] [facility], [address] [place] [address] Urinalysison 10-08-2023 Bilirubin Ql (U) Negative Negative^Ne gative [facility] Color (U) YELLOW YELLOW^YELL OW [facility] Glucose (U) [Mass/Vol] Negative Negat devyn^Ne gative mg/dL [facility] Hemoglobin Auto test strip Ql (U) Negative Negative^Ne gative [facility] Ketones (U) [Mass/Vol] Negative Negat devyn^Ne gative mg/dL [facility] Leukocyte esterase Auto test strip Ql (U) Negative Negative^Ne gative [facility] Nitrite Auto test strip Ql (U) Negative Negative^Ne gative [facility] pH (U) 7.5 [pH] 5.0 - 8.5 [facility] Protein (U) [Mass/Vol] Negative Negat devyn^Ne gative mg/dL [facility] Specific gravity Refractometry automated (U) [Rel density] 1.010 1.003 - 1.035 [facility] Turbidity Ql (U) CLEAR CLEAR^CLEAR [facility] Urobilinogen Qn (U) NINF [facility] aPTT Coag (PPP) [Time]on aPTT Coag (Bld) [Time] 40 s High 26-37 Pr [facility] Comment on above: Performed By: #### C BCA, BMP, PINR, 76742-2 #### [facility] ([id number]) [address] [place] [address] Interpretation and review of laboratory results Abnormal [facility] Physician Referralon 024 Physician Referral [phone] [id number] Normal [facility] XR Chest PA and Lateralon Brenden [...] Brenden Zapien MD on 09/23/2023 4:11 PM [employer] Radiology Study observation (narrative) [employer] XR Chest PA and LateralOrder ed By: Brenden Zapien on 09-23-2023 [employer] Work Phone: CT LUMBAR SPINE WO [...] on 09/10/2023 1:49 PM Normal [facility] XR SPINE LUMB BENDING ONLY 2 [...] Rodriguez MD on 09/03/2023 5:22 AM Normal [facility] MR LUMBAR SPINE WO CONTon [...] a posterior lumbar spinal fusion with pedicular director records management screws, long segment of the rods and [...] Combs MD on 08/04/2023 9:59 AM Normal [facility] XR lumbar spine AP/LAT/FLX/E XTon 05-24-2023 XR lumbar spine AP/LAT/FLX/EXT [facility] [place] [address] [place] [address] XRay Report Signed Patient: Celestino Peñaloza MR#: [id number] : 1970 Acct:[id number] Age/Sex: 52 / M ADM Date: 05/24/23 Loc: XD Room: Type: [facility] Attending Dr: Trino Cadet MD Copies to: [...] Mesfin Snell M.D.05/24/2023 8:03 PM Dictation Location: [place] [address] Transcribed By: [facility] 05/24/232002 Dictated By: Mesfin Snell II, MD 05/24/232001 Signed By: 05/24/232002 Normal [facility] INSULINon 09-04-2022 Insulin 6.5 uIU/mL Normal 2.6-24.[address] [facility] Comment on above: Performed By: #### I NSULIN #### [facility] [address] [place] [address] Dr. Randall Ayoub CBC AUTO DIFFon 09-03-2022 BASO # 0.0 103/ul Normal 0.0-0.[address] [facility] Comment on above: Performed By: #### C BC #### [facility] [address] [place] [address] Dr. Randall Ayoub Basophils/100 WBC (Bld) 0.6 % Normal 0.2-2.0 [facility] Comment on above: Performed By: #### C BC #### [facility] [address] [place] [address] Dr. Randall Ayoub EO # 0.2 103/ul Normal 0.0-0.[address] [facility] Comment on above: Performed By: #### C BC #### [facility] [address] [place] [address] Dr. Randall Ayoub Eosinophils/100 WBC (Bld) 3.2 % Normal 0.9-7.[address] [facility] Comment on above: Performed By: #### C BC #### [facility] [address] [place] [address] Dr. Randall Ayoub Erythrocyte distribution width (RBC) [Ratio] 13.8 % Normal 11.0-15.[address] [facility] Comment on above: Performed By: #### C BC #### [facility] [address] [place] [address] Dr. Randall Ayoub Hematocrit (Bld) [Volume fraction] 39.5 % Critically low 42.0-54.[address] [facility] Comment on above: Performed By: #### C BC #### [facility] [address] [place] [address] Dr. Randall Ayoub Hemoglobin (Bld) [Mass/Vol] 13.0 g/dL Critically low 14.0-18.[address] [facility] Comment on above: Performed By: #### C BC #### [facility] [address] [place] [address] Dr. Randall Ayoub IG # 0.00 10e3/ul Normal 0.00-0.[address] [facility] Comment on above: Performed By: #### C BC #### [facility] [address] [place] [address] Dr. Randall Ayoub IG % 0.0 % Normal 0.0-0.5 [facility] Comment on above: Performed By: #### C BC #### [facility] [address] [place] [address] Dr. Randall Ayoub LYMPH # 2.3 103/ul Normal 1.2-3.[address] [facility] Comment on above: Performed By: #### C BC #### [facility] [address] [place] [address] Dr. Randall Ayoub Lymphocytes/100 WBC (Bld) 35.2 % Normal 20.5-60.[address] [facility] Comment on above: Performed By: #### C BC #### [facility] [address] [place] [address] Dr. Randall Ayoub MANUAL DIFF REQ NO Normal [facility] Comment on above: Performed By: #### C BC #### [facility] [address] [place] [address] Dr. Randall Ayoub MCH (RBC) [Entitic mass] 30.8 pg Normal 25.9-34.[address] [facility] Comment on above: Performed By: #### C BC #### [facility] [address] [place] [address] Dr. Randall Ayoub MCHC (RBC) [Mass/Vol] 32.9 g/dL Normal 29.9-35.[address] [facility] Comment on above: Performed By: #### C BC #### [facility] [address] [place] [address] Dr. Randall Ayoub MCV (RBC) [Entitic vol] 93.6 fL Normal 80.0-94.0 [facility] Comment on above: Performed By: #### C BC #### [facility] [address] [place] [address] Dr. Randall Ayoub MONO # 0.6 103/ul Normal 0.3-0.[address] [facility] Comment on above: Performed By: #### C BC #### [facility] [address] [place] [address] Dr. Randall Ayoub Monocytes/100 WBC (Bld) 8.9 % Normal 1.7-12.0 [facility] Comment on above: Performed By: #### C BC #### [facility] [address] [place] [address] Dr. Randall Ayoub NEUT # 3.4 103/ul Normal 1.4-6.[address] [facility] Comment on above: Performed By: #### C BC #### [facility] [address] [place] [address] Dr. Randall Ayoub Neutrophils/100 WBC (Bld) 52.1 % Normal 43.0-75.[address] [facility] Comment on above: Performed By: #### C BC #### [facility] [address] [place] [address] [address] Randall Ayoub Platelet mean volume (Bld) [Entitic vol] 10.7 fL Normal 9.5-13.[address] [facility] Comment on above: Performed By: #### C BC #### [facility] [address] [place] [address] [address] Randall Ayoub PLT 186 103/ul Normal 150-[address] [facility] Comment on above: Performed By: #### C BC #### [facility] [address] [place] [address] [address] Randall Ayoub RBC 4.22 106/ul Critically low 4.70-6.10 [facility] Comment on above: Performed By: #### C BC #### [facility] [address] [place] [address] [address] Randall Ayoub WBC 6.6 103/ul Normal 4.0-11.[address] [facility] Comment on above: Performed By: #### C BC #### [facility] Laboratory [address] [address] [address] Randall Ayoub GLYCOHEMOGLOBIN A1Con 2022 ADA RECOMMENDATION SEE BELOW Normal [facility] Comment on above: Result Comment: ADA RECOMMENDED LIMIT 4.0 - 6.0 ADA THERAPEUTIC TARGET < 7.0 ACTION SUGGESTED > 7.0 Performed By: #### A 1C #### [facility] [address] [address] [address] Randall Ayoub Glucose [Mass/Vol] 114 mg/dL Normal [facility] Comment on above: Performed By: #### A 1C #### [facility] [address] [address] [address] Randall Ayoub HbA1c (Bld) [Mass fraction] 5.6 % Normal 4.5-6.[address] [facility] Comment on above: Performed By: #### A 1C #### [facility] [address] [place] [address] Dr. Randall Ayoub LIPID PROFILEon 09-03-2022 CHOL-HDL RATIO NORM SEE BELOW Normal [place] Comment on above: Result Comment: 3.3 - 4.4 LOW RISK 4.4 - 7.1 AVERAGE RISK 7.1 - 11.0 MODERATE RISK >11.0 HIGH RISK Performed By: #### I NSULIN #### [facility] [address] [address] [address] Randall Ayoub Cholesterol [Mass/Vol] 181 mg/dL Normal <=200 Th [facility] Comment on above: Performed By: #### I NSULIN #### [facility] [address] [address] [address] Randall Ayoub Cholesterol in HDL [Mass/Vol] 47 mg/dL Normal 40-[address] [facility] Comment on above: Performed By: #### I NSULIN #### [facility] [address] [address] [address] Randall Ayoub Cholesterol in LDL [Mass/Vol] 113.4 mg/dL Normal [facility] Comment on above: Performed By: #### I NSULIN #### [facility] [address] [address] [address] Randall Ayoub Cholesterol.total/Génesis sterol in HDL [Mass ratio] 3.9 {ratio} Normal [facility] Comment on above: Performed By: #### I NSULIN #### [facility] [address] [address] [address] Randall Ayoub HDL NORMAL > or = 60 mg/dl - LOW CARDIOVASCULAR RISK <40 mg/dl - HIGH CARDIOVASCULAR RISK Normal [facility] Comment on above: Performed By: #### I NSULIN #### [facility] [address] [address] [address] Randall Ayoub LDL CALC NORMAL SEE BELOW Normal [facility] Comment on above: Result Comment: <100 mg/dl OPTIMAL 100 - 129 mg/dl NEAR OR ABOVE OPTIMAL 130 - 159 mg/dl BORDERLINE HIGH 160 - 189 mg/dl HIGH >190 mg/dl VERY HIGH Performed By: #### I NSULIN #### [facility] [address] [address] [address] Randall Ayoub Triglyceride [Mass/Vol] 103 mg/dL Normal <=150 T [facility] Comment on above: Performed By: #### I NSULIN #### [facility] [address] [place] [address] Dr. Randall Ayoub VLDL CALC 20.6 mg/dL Normal [facility] Comment on above: Performed By: #### I NSULIN #### [facility] [address] [place] [address] Dr. Randall Ayoub PROF 14(COMP METB)on 023 Albumin [Mass/Vol] 3.8 g/dL Normal 3.4-5.0 [facility] Comment on above: Performed By: #### I NSULIN #### [facility] [address] [place] [address] Dr. Randall Ayoub Albumin/Globulin [Mass ratio] 1.4 {ratio} Normal [facility] Comment on above: Performed By: #### I NSULIN #### [facility] [address] [place] [address] Dr. Randall Ayoub ALP [Catalytic activity/Vol] 72 U/L Normal 46-[address] [facility] Comment on above: Performed By: #### I NSULIN #### [facility] [address] [place] [address] Dr. Randall Ayoub ALT [Catalytic activity/Vol] 22 U/L Normal 16-[address] [facility] Comment on above: Performed By: #### I NSULIN #### [facility] [address] [place] [address] Dr. Randall Ayoub Anion gap [Moles/Vol] 12.9 mmol/L Normal [facility] Comment on above: Performed By: #### I NSULIN #### [facility] [address] [place] [address] Dr. Randall Ayoub AST [Catalytic activity/Vol] 17 U/L Normal 15-[address] [facility] Comment on above: Performed By: #### I NSULIN #### [facility] [address] [place] [address] Dr. Randall Ayoub Bilirubin [Mass/Vol] 0.5 mg/dL Normal 0.2-1.[address] [facility] Comment on above: Performed By: #### I NSULIN #### [facility] [address] [address] [address] Randall Ayoub Calcium [Mass/Vol] 8.7 mg/dL Normal 8.5-10.1 [facility] Comment on above: Performed By: #### I NSULIN #### [facility] [address] [address] [address] Randall Ayoub Chloride [Moles/Vol] 108 mmol/L Critically high 98-[address] [facility] Comment on above: Performed By: #### I NSULIN #### [facility] [address] [address] [address] Randall Ayoub CO2 [Moles/Vol] 27.5 mmol/L Normal 21.0-32.0 [facility] Comment on above: Performed By: #### I NSULIN #### [facility] [address] [address] [address] Randall Ayoub Creatinine [Mass/Vol] 0.92 mg/dL Normal 0.70-1.[address] [facility] Comment on above: Performed By: #### I NSULIN #### [facility] [address] [address] [address] Randall Ayoub EGFR-AF BRAZILIAN >60 Normal >=60 [facility] Comment on above: Performed By: #### I NSULIN #### [facility] [address] [address] [address] Randall Ayoub EGFR-NON AF BRAZILIAN >60 Normal >=[address] [facility] Comment on above: Performed By: #### I NSULIN #### [facility] [address] [address] [address] Randall Ayoub Globulin (S) [Mass/Vol] 2.7 g/dL Normal [facility] Comment on above: Performed By: #### I NSULIN #### [facility] [address] [address] [address] Randall Ayoub Glucose [Mass/Vol] 96 mg/dL Normal 74-106 [facility] Comment on above: Performed By: #### I NSULIN #### [facility] [address] [address] [address] Randall Ayoub Potassium [Moles/Vol] 4.4 mmol/L Normal 3.5-5.[address] [facility] Comment on above: Performed By: #### I NSULIN #### [facility] [address] [address] [address] Randall Ayoub Protein [Mass/Vol] 6.5 g/dL Normal 6.4-8.2 [facility] Comment on above: Performed By: #### I NSULIN #### [facility] [address] [address] [address] Randall Ayoub Sodium [Moles/Vol] 144 mmol/L Normal 136-145 [facility] Comment on above: Performed By: #### I NSULIN #### [facility] [address] [place] [address] Dr. Randall Ayoub Urea nitrogen [Mass/Vol] 23.0 mg/dL Critically high 7.0-18.[address] [facility] Comment on above: Performed By: #### I NSULIN #### [facility] [address] [address] [address] Randall Ayoub Urea nitrogen/Creatinine [Mass ratio] 25.0 mg/mg Normal [facility] Comment on above: Performed By: #### I NSULIN #### [facility] [address] [place] [address] Dr. Randall Ayoub URIC ACID SERUMon 09-03-2022 Urate [Mass/Vol] 4.2 mg/dL Normal 3.5-7.2 [facility] Comment on above: Performed By: #### I NSULIN #### [facility] [address] [place] [address] Dr. Randall Ayoub CBC AUTO DIFFon 02-03-2022 BASO # 0.0 103/ul Normal 0.0-0.[address] [facility] Comment on above: Performed By: #### I NSULIN #### [facility] [address] [place] [address] Dr. Randall Ayoub Basophils/100 WBC (Bld) 0.3 % Normal 0.2-2.0 [facility] Comment on above: Performed By: #### I NSULIN #### [facility] [address] [place] [address] Dr. Randall Ayoub EO # 0.0 103/ul Normal 0.0-0.[address] [facility] Comment on above: Performed By: #### I NSULIN #### [facility] [address] [place] [address] Dr. Randall Ayoub Eosinophils/100 WBC (Bld) 0.5 % Critically low 0.9-7.[address] [facility] Comment on above: Performed By: #### I NSULIN #### [facility] [address] [place] [address] Dr. Randall Ayoub Erythrocyte distribution width (RBC) [Ratio] 13.4 % Normal 11.0-15.[address] [facility] Comment on above: Performed By: #### I NSULIN #### [facility] [address] [place] [address] Dr. Randall Ayoub Hematocrit (Bld) [Volume fraction] 41.7 % Critically low 42.0-54.[address] [facility] Comment on above: Performed By: #### I NSULIN #### [facility] [address] [place] [address] Dr. Randall Ayoub Hemoglobin (Bld) [Mass/Vol] 14.0 g/dL Normal 14.0-18.[address] [facility] Comment on above: Performed By: #### I NSULIN #### [facility] [address] [place] [address] Dr. Randall Ayoub IG # 0.01 10e3/ul Normal 0.00-0.[address] [facility] Comment on above: Performed By: #### I NSULIN #### [facility] [address] [place] [address] Dr. Randall Ayoub IG % 0.3 % Normal 0.0-0.[address] [facility] Comment on above: Performed By: #### I NSULIN #### [facility] [address] [place] [address] Dr. Randall Ayoub LYMPH # 1.7 103/ul Normal 1.2-3.[address] [facility] Comment on above: Performed By: #### I NSULIN #### [facility] [address] [place] [address] Dr. Randall Ayoub Lymphocytes/100 WBC (Bld) 43.7 % Normal 20.5-60.[address] [facility] Comment on above: Performed By: #### I NSULIN #### [facility] [address] [place] [address] Dr. Randall Ayoub MANUAL DIFF REQ NO Normal [facility] Comment on above: Performed By: #### I NSULIN #### [facility] [address] [place] [address] Dr. Randall Ayoub MCH (RBC) [Entitic mass] 31.7 pg Normal 25.9-34.[address] [facility] Comment on above: Performed By: #### I NSULIN #### [facility] [address] [place] [address] Dr. Randall Ayoub MCHC (RBC) [Mass/Vol] 33.6 g/dL Normal 29.9-35.[address] [facility] Comment on above: Performed By: #### I NSULIN #### [facility] [address] [place] [address] Dr. Randall Ayoub MCV (RBC) [Entitic vol] 94.3 fL Critically high 80.0-94 .[address] [facility] Comment on above: Performed By: #### I NSULIN #### [facility] [address] [place] [address] Dr. Randall Ayoub MONO # 0.6 103/ul Normal 0.3-0.[address] [facility] Comment on above: Performed By: #### I NSULIN #### [facility] [address] [place] [address] Dr. Randall Ayoub Monocytes/100 WBC (Bld) 14.7 % Critically high 1.7-12. [address] [facility] Comment on above: Performed By: #### I NSULIN #### [facility] [address] [place] [address] Dr. Randall Ayoub NEUT # 1.6 103/ul Normal 1.4-6.[address] [facility] Comment on above: Performed By: #### I NSULIN #### [facility] [address] [address] [address] Randall Ayoub Neutrophils/100 WBC (Bld) 40.5 % Critically low 43.0-75.[address] [facility] Comment on above: Performed By: #### I NSULIN #### [facility] [address] [place] [address] Dr. Randall Ayoub Platelet mean volume (Bld) [Entitic vol] 10.1 fL Normal 9.5-13.[address] [facility] Comment on above: Performed By: #### I NSULIN #### [facility] [address] [place] [address] Dr. Randall Ayoub PLT 171 103/ul Normal 150-[address] [facility] Comment on above: Performed By: #### I NSULIN #### [facility] [address] [place] [address] Dr. Randall Ayoub RBC 4.42 106/ul Critically low 4.70-6.10 [facility] Comment on above: Performed By: #### I NSULIN #### [facility] [address] [place] [address] Dr. Randall Ayoub WBC 3.9 103/ul Critically low 4.0-11.0 [facility] Comment on above: Performed By: #### I NSULIN #### [facility] [address] [place] [address] Dr. Randall Ayoub Covid-19 PCR (CVDTB)on 01-15 SARS-CoV-2 (COVID-19) RNA SERGIO+probe Ql (Unsp spec) Not detected Normal NOT DETECTED [facility] Comment on above: Result Comment: This test is not yet approved or cleared by the [place] FDA. When there are no FDA-approved or cleared tests available, and other criteria are met, FDA can make tests available under an emergency access mechanism called an Emergency Use Authorization (EUA). The EUA for this test is supported by the [place] of Health and Human Service's (HHS's) declaration [...] SARS-CoV-2. Performed By: #### C VDTB #### [facility] [address] [place] [address] Dr. Randall Ayoub ER URINE PROFILEon 2 Bilirubin Ql (U) MODERATE Abnormal NEGATIVE [facility] Comment on above: Performed By: #### E RUR #### [facility] [address] [place] [address] Dr. Randall Ayoub Clarity (U) CLEAR Normal CLEAR [facility] Comment on above: Performed By: #### E RUR #### [facility] [address] [place] [address] Dr. Randall Ayoub Color (U) DK. YELLOW Normal YELLOW [facility] Comment on above: Performed By: #### E RUR #### [facility] [address] [place] [address] Dr. Randall Ayoub ERUGUILLERMINAD A micrscopic examination will be performed if indicated. Normal [facility] Comment on above: Performed By: #### E RUR #### [facility] [address] [place] [address] Dr. Randall Ayoub Glucose Ql (U) Negative Normal NEGATIVE [facility] Comment on above: Performed By: #### E RUR #### [facility] [address] [place] [address] Dr. Randall Ayoub Hemoglobin Ql (U) Negative Normal NEGATIVE [facility] Comment on above: Performed By: #### E RUR #### [facility] [address] [place] [address] Dr. Randall Ayoub Ketones Ql (U) >=80 Abnormal NEGATIVE [facility] Comment on above: Performed By: #### E RUR #### [facility] [address] [place] [address] Dr. Randall Ayoub LEUKOCYTES Negative Normal NEGATIVE [facility] Comment on above: Performed By: #### E RUR #### [facility] [address] [place] [address] Dr. Randall Ayoub Nitrite Ql (U) Negative Normal NEGATIVE [facility] Comment on above: Performed By: #### E RUR #### [facility] [address] [place] [address] Dr. Randall Ayoub pH (U) 6.5 [pH] Normal 5-[address] [facility] Comment on above: Performed By: #### E RUR #### [facility] [address] [place] [address] Dr. Randall Ayoub Protein (U) [Mass/Vol] 30 mg/dL Abnormal NEGAT DEVYN/ TRACE [facility] Comment on above: Performed By: #### E RUR #### [facility] [address] [place] [address] Dr. Randall Ayoub SPEC GRAVITY 1.025 Normal 1.005-<=1.[address] [facility] Comment on above: Performed By: #### E RUR #### [facility] [address] [place] [address] Dr. Randall Ayoub UR MICRO IND NOT INDICATED Normal [facility] Comment on above: Performed By: #### E RUR #### [facility] [address] [place] [address] Dr. Randall Ayoub Urobilinogen Qn (U) 1.0 {Kavita'U}/dL Normal 0.2 - 1. [address] [facility] Comment on above: Performed By: #### E RUR #### [facility] [address] [place] [address] Dr. Randall Ayoub INFLUENZA A AND B AGon 02-03 INFLUANEGH SEE BELOW Normal [facility] Comment on above: Result Comment: Nega tive for Flu A protein angiten. Infection due to Flu A cannot be ruled out. Flu A angiten in the sample may be below the detection limit of the test. Performed By: #### I NSULIN #### [facility] [address] [place] [address] Dr. Randall Ayoub [facility] SEE BELOW Normal [facility] Comment on above: Result Comment: Nega tive for Flu B protein antigen. Infection due to Flu B cannot be ruled out. Flu B antigen in the sample may be below the detection limit of the test. Performed By: #### I NSULIN #### [facility] [address] [place] [address] Dr. Randall Ayoub INFLUENZA A AG Negative Normal NEGATIVE SEE COMMENT [facility] Comment on above: Performed By: #### I NSULIN #### [facility] [address] [place] [address] Dr. Randall Ayoub INFLUENZA B AG Negative Normal NEGATIVE SEE COMMENT [facility] Comment on above: Performed By: #### I NSULIN #### [facility] [address] [place] [address] Dr. Randall Ayoub INTERNAL CONTROLS Within Normal Limits Normal Within Normal Limits [facility] Comment on above: Performed By: #### I NSULIN #### [facility] [address] [place] [address] Dr. Randall Ayoub LACTATE/LACTIC ACIDon 2021 Lactate [Moles/Vol] 1.2 mmol/L Normal 0.4-1.9 [place] Comment on above: Performed By: #### L ACT #### [facility] [address] [place] [address] Dr. Randall Ayoub PROF 14(COMP METB)on 022 Albumin [Mass/Vol] 4.0 g/dL Normal 3.4-5.0 [facility] Comment on above: Performed By: #### C MP #### [facility] [address] [place] [address] Dr. Randall Ayoub Albumin/Globulin [Mass ratio] 1.3 {ratio} Normal [facility] Comment on above: Performed By: #### C MP #### [facility] [address] [place] [address] Dr. Randall Ayoub ALP [Catalytic activity/Vol] 71 U/L Normal 46-[address] [facility] Comment on above: Performed By: #### C MP #### [facility] [address] [place] [address] Dr. Randall Ayoub ALT [Catalytic activity/Vol] 26 U/L Normal 16-[address] [facility] Comment on above: Performed By: #### C MP #### [facility] [address] [address] [address] Randall Ayoub Anion gap [Moles/Vol] 15.4 mmol/L Normal Th e [facility] Comment on above: Performed By: #### C MP #### [facility] [address] [place] [address] Dr. Randall Ayoub AST [Catalytic activity/Vol] 15 U/L Normal 15-[address] [facility] Comment on above: Performed By: #### C MP #### [facility] [address] [place] [address] Dr. Randall Ayoub Bilirubin [Mass/Vol] 0.6 mg/dL Normal 0.2-1.[address] [facility] Comment on above: Performed By: #### C MP #### [facility] [address] [place] [address] Dr. Randall Ayoub Calcium [Mass/Vol] 8.9 mg/dL Normal 8.5-10.1 [facility] Comment on above: Performed By: #### C MP #### [facility] [address] [place] [address] Dr. Randall Ayoub Chloride [Moles/Vol] 108 mmol/L Critically high 98-[address] [facility] Comment on above: Performed By: #### C MP #### [facility] [address] [address] [address] Randall Ayoub CO2 [Moles/Vol] 23.1 mmol/L Normal 21.0-32.0 [facility] Comment on above: Performed By: #### C MP #### [facility] [address] [place] [address] Dr. Randall Ayoub Creatinine [Mass/Vol] 0.96 mg/dL Normal 0.70-1.[address] [facility] Comment on above: Performed By: #### C MP #### [facility] [address] [address] [address] Randall Ayoub EGFR-AF BRAZILIAN >60 Normal >=60 [facility] Comment on above: Performed By: #### C MP #### [facility] [address] [address] [address] Randall Ayoub EGFR-NON AF BRAZILIAN >60 Normal >=[address] [facility] Comment on above: Performed By: #### C MP #### [facility] [address] [address] [address] Randall Ayoub Globulin (S) [Mass/Vol] 3.0 g/dL Normal T [facility] Comment on above: Performed By: #### C MP #### [facility] [address] [place] [address] Dr. Randall Ayoub Glucose [Mass/Vol] 99 mg/dL Normal 74-106 [facility] Comment on above: Performed By: #### C MP #### [facility] [address] [address] [address] Randall Ayoub Potassium [Moles/Vol] 3.5 mmol/L Normal 3.5-5.[address] [facility] Comment on above: Performed By: #### C MP #### [facility] [address] [place] [address] Dr. Randall Ayoub Protein [Mass/Vol] 7.0 g/dL Normal 6.4-8.2 [facility] Comment on above: Performed By: #### C MP #### [facility] [address] [address] [address] Randall Ayoub Sodium [Moles/Vol] 143 mmol/L Normal 136-145 [facility] Comment on above: Performed By: #### C MP #### [facility] [address] [address] [address] Randall Ayoub Urea nitrogen [Mass/Vol] 24.0 mg/dL Critically high 7.0-18.[address] [facility] Comment on above: Performed By: #### C MP #### [facility] [address] [place] [address] [address] Randall Ayoub Urea nitrogen/Creatinine [Mass ratio] 25.0 mg/mg Normal [facility] Comment on above: Performed By: #### C MP #### [facility] [address] [place] [id number] Randall Ayoub SYMPTOMATIC COVID-19 ANTIGEN on 02-03-2022 EUA Statement SEE BELOW Normal [facility] Comment on above: Result Comment: This test [...] sooner. Performed By: #### C VDAGS #### [facility] [address] [place] [address] Dr. Randall Ayoub SARS-CoV-2 (COVID-19) RNA SERGIO+probe Ql (Unsp spec) Negative Normal NEGATIVE [facility] Comment on above: Performed By: #### C VDAGS #### [facility] [address] [place] [id number] [address] Randall Ayoub XR CHEST 2 Von [...] with hardware partially visualized. Electronically authenticated by: TRISTA SUTHERLAND Date: 2022-02-03 17:08 Normal [facility] Cov[facility]-19 PCR [facility]on 12-14 SARS-CoV-2 (COVID-19) RNA SERGIO+probe Ql (Unsp spec) Not detected Normal NOT DETECTED [facility] Comment on above: Result Comment: This test is not yet approved or cleared by the [place] FDA. When there are no FDA-approved or cleared tests available, and other criteria are met, FDA can make tests available under an emergency access mechanism called an Emergency Use Authorization (EUA). The EUA for this test is supported by the [employer] of Health and Human Service's (HHS's) declaration [...] consistent with SARS-CoV-2. Performed By: #### C [facility] #### [facility] [address] [place] [address] Dr. Randall Ayoub Vital Signs Date Time Vital Sign Value Performing Clinician Facility 11-16-2023 13:17-0400 Blood Pressure Location Michel ROSENDO [facility] 11-16-2023 13:17-0400 Diastolic blood pressure 78 mm[Hg] Michel ROBBINS [facility] 11-16-2023 13:17-0400 Heart rate 72 /min Michel FUENTESL [facility] 11-16-2023 13:17-0400 Respiratory rate 16 /min Michel ROBBINS [facility] 11-16-2023 13:17-0400 Systolic blood pressure 118 mm[Hg] Michel ROBBINS [facility] 10-29-2023 06:05-0400 Body temperature 97.9 [degF] MD Donna Herrera Work Phone: [facility] 10-29-2023 06:05-0400 Diastolic blood pressure 74 mm[Hg] MD Donna Herrera Work Phone: [facility] 10-29-2023 06:05-0400 Heart rate 72 /min MD Donna Herrera Work Phone: [facility] 10-29-2023 06:05-0400 Respiratory rate 16 /min MD Donna Herrera Work Phone: [facility] 10-29-2023 06:05-0400 SaO2% (BldA) [Mass fraction] 98 % MD Donna Herrera Work Phone: [facility] 10-29-2023 06:05-0400 Systolic blood pressure 124 mm[Hg] MD Donna Herrera Work Phone: [facility] 10-28-2023 09:50-0400 Body height 172.72 cm MD Donna Herrera Work Phone: [facility] 10-27-2023 14:36-0400 Body weight 90 kg MD Donna Herrera Work Phone: [facility] 10-08-2023 13:45-0500 Body height 172.7 cm [facility] 10-08-2023 13:45-0500 Body mass index (BMI) [Ratio] 30.77 kg/m2 [facility] 10-08-2023 13:45-0500 Body temperature 97.7 [degF] [facility] 10-08-2023 13:45-0500 Body weight 91.8 kg [facility] 10-08-2023 13:45-0500 Diastolic blood pressure 81 mm[Hg] [facility] 10-08-2023 13:45-0500 Heart rate 74 /min [facility] 10-08-2023 13:45-0500 Respiratory rate 18 /min [facility] 10-08-2023 13:45-0500 SaO2% (BldA) [Mass fraction] 93 % [facility] 10-08-2023 13:45-0500 Systolic blood pressure 125 mm[Hg] [facility] 09-23-2023 11:38-0500 Body height 172.7 cm Charles Lama [employer] Work Phone: [facility] 09-23-2023 11:38-0500 Body mass index (BMI) [Ratio] 30.41 kg/m2 Charlesnaresh Lama [employer] Work Phone: [facility] 09-23-2023 11:38-0500 Body weight 90.72 kg Charles Lama [employer] Work Phone: [facility] 09-02-2023 09:59-0500 Body height 172.7 cm Charles Lama [employer] Work Phone: [facility] 09-02-2023 09:59-0500 Body mass index (BMI) [Ratio] 30.41 kg/m2 Charles Lama [employer] Work Phone: [facility] 09-02-2023 09:59-0500 Body weight 90.72 kg Charles Laam [employer] Work Phone: [facility] 09-02-2023 09:59-0500 Diastolic blood pressure 77 mm[Hg] Charles Lama [employer] Work Phone: [facility] 09-02-2023 09:59-0500 Heart rate 74 /min Charles Lama [employer] Work Phone: [facility] 09-02-2023 09:59-0500 Systolic blood pressure 115 mm[Hg] Charles Lmaa [employer] Work Phone: [facility] 08-19-2023 13:20-0500 Body height 172.7 cm Xu Troy PA Work Phone: [employer] 08-19-2023 13:20-0500 Body mass index (BMI) [Ratio] 31.32 kg/m2 Xu Persaudenberg PA Work Phone: [employer] 08-19-2023 13:20-0500 Body weight 93.44 kg Xu Persaudenberg PA Work Phone: [employer] 08-19-2023 13:20-0500 Diastolic blood pressure 87 mm[Hg] Xu Persaudenberg PA Work Phone: [employer] 08-19-2023 13:20-0500 Heart rate 81 /min Xu Corienberg PA Work Phone: [employer] 08-19-2023 13:20-0500 Respiratory rate 18 /min Xu Troy PA Work Phone: [employer] 08-19-2023 13:20-0500 SaO2% (BldA) [Mass fraction] 98 % Xu Nienberg PA Work Phone: [employer] 08-19-2023 13:20-0500 Systolic blood pressure 142 mm[Hg] Xu Persaudenberg PA Work Phone: [employer] 05-25-2023 09:40-0400 Body height 175.26 cm Trino Cadet Other [facility] Other 05-25-2023 09:40-0400 Body mass index (BMI) [Ratio] 29.83 kg/m2 Trino Cadet Other [facility] Other 05-25-2023 09:40-0400 Body weight 91.63 kg Trino Cadet Other [facility] Other 09-15-2022 15:40-0500 Body height 175.26 cm Trino Cadet Other [facility] Other 09-15-2022 15:40-0500 Body mass index (BMI) [Ratio] 30.27 kg/m2 Trino Cadet Other [facility] Other 09-15-2022 15:40-0500 Body weight 92.99 kg Trino Cadet Other [facility] Other 09-15-2022 15:40-0500 Diastolic blood pressure 70 mm[Hg] Trino Cadet Other [facility] Other 09-15-2022 15:40-0500 Systolic blood pressure 116 mm[Hg] Trino Cadet Other [facility] Other 08-04-2022 12:20-0500 Body height 175.26 cm Trino Cadet Other [facility] Other 08-04-2022 12:20-0500 Body mass index (BMI) [Ratio] 30.27 kg/m2 Trino Cadet Other [facility] Other 08-04-2022 12:20-0500 Body weight 92.99 kg Trino Cadet Other [facility] Other 08-05-2021 12:20-0500 Body height 175.26 cm Trino Cadet Other [facility] Other 08-05-2021 12:20-0500 Body mass index (BMI) [Ratio] 30.27 kg/m2 Trino Cadet Other [facility] Other 08-05-2021 12:20-0500 Body weight 92.99 kg Trino Cadet Other [facility] Other Encounters Encounter Date Encounter Type Care Provider Facility Start: 12-08-2023 ambulatory CHARLESFERMÍN LAMA [facility] Start: 12-02-2023 End: 12-02-2023 ambulatory DONNA M [facility] Start: 11-16-2023 End: 11-17-2023 ambulatory Donna Herrera Facility: [facility] Start: 11-16-2023 End: 11-16-2023 Patient encounter procedure Michel ROBBINS [facility] Krist[facility] Start: 11-04-2023 End: 11-04-2023 ambulatory [facility] Start: 10-28-2023 Non-patient / Non-visit MD Marry Herrera Work Phone: [facility] Work Phone: Start: 10-27-2023 End: 10-29-2023 Evaluation and management of inpatient [place] [facility] Start: 10-27-2023 End: 10-29-2023 Evaluation and management of inpatient MD Donna Herrera Work Phone: [facility] Work Phone: Start: 10-23-2023 End: 10-27-2023 ambulatory MARVA Batista AGUAYO [facility] Start: 10-22-2023 End: 10-27-2023 [facility] management of inpatient [facility] Start: 10-22-2023 End: 10-27-2023 Evaluation and management of inpatient [facility] Start: 10-08-2023 End: 10-08-2023 ambulatory [facility] Start: 10-08-2023 Telephone encounter Radha Bustillos RN [facility] Start: 10-08-2023 End: 10-08-2023 Patient encounter procedure Stanislav Woodard Provider 5 [facility] Comment on above: Spinal stenosis of l umbar region with neurogenic claudication Start: 10-07-2023 ambulatory [facility] Facility:Jasiel Simons Start: 09-23-2023 End: 09-24-2023 ambulatory [facility] Start: 09-23-2023 Encounter for other preprocedural examination DARRELL OLSEN [facility] Start: 09-23-2023 End: 09-23-2023 ambulatory [place] [facility] Start: 09-23-2023 Encounter for other preprocedural examination [facility] Start: 09-23-2023 End: 09-23-2023 Office outpatient new 60 minutes Charles Lama [employer] Work Phone: [facility] Comment on above: Spinal stenosis of l umbar region with neurogenic claudication (Primary Dx); Pre-op testing; Radiculopathy, lumbar region Start: 09-23-2023 End: 09-23-2023 Patient encounter status Charles Lama [employer] Work Phone: [facility] Start: 09-16-2023 Refill Kathy Peñaloza [employer] [facility] Comment on above: Disorder of sacrum Start: 09-09-2023 End: 09-10-2023 [facility] Start: 09-02-2023 End: 09-03-2023 ambulatory [facility] Start: 09-02-2023 End: 09-02-2023 Office outpatient new 45 minutes Charles Kelby [employer] Work Phone: [facility] Comment on above: Spinal stenosis of l umbar region with neurogenic claudication (Primary Dx); History of lumbar fusion; Radiculopathy, lumbar region; Lumbar radiculopathy Start: 08-19-2023 End: 08-19-2023 ambulatory XU TROY [facility] Start: 08-19-2023 End: 08-19-2023 Office outpatient visit 15 minutes Xu PORRAS Work Phone: [facility] Comment on above: Spinal stenosis of l umbar region with neurogenic claudication (Primary Dx) Start: 08-18-2023 End: 08-18-2023 ambulatory FITZ CARRASQUILLO [facility] Start: 08-03-2023 End: 08-04-2023 ambulatory XU TROY [facility] Start: 05-25-2023 End: 05-25-2023 ambulatory Trino Cadet Other [facility] Other Start: 05-25-2023 Office outpatient vi sit 15 minutes Trino Cadet [facility] Start: 05-24-2023 End: 05-24-2023 ambulatory Trino Cadet Facility:[facility] Start: 05-24-2023 End: 05-24-2023 ambulatory MD Donna Herrera Work Phone: [facility] Work Phone: Start: 05-24-2023 End: 05-24-2023 Patient encounter procedure MD Donna Herrera Work Phone: [facility] [place] Work Phone: Start: 09-15-2022 End: 09-15-2022 ambulatory Trino Cadet Other [facility] Other Start: 09-15-2022 Office outpatient vi sit 15 minutes Trino Cadet [facility] Start: 09-08-2022 Encounter for genera l adult medical examination without abnormal findings DR DONNA HERRERA [facility] Start: 09-03-2022 End: 09-04-[address] DONNA HERRERA Facility:[facility] Start: 09-03-2022 End: 09-04-2022 Encounter for general adult medical examination without abnormal findings DR DONNA HERRERA Facility:[facility] Start: 08-04-2022 End: 08-04-2022 ambulatory Trino Cadet Other [facility] Other Start: 08-04-2022 Office outpatient vi sit 15 minutes Trino Cadet [facility] Start: 02-03-2022 End: 02-03-[address] DONNA HERRERA Facility:[facility] Start: 02-03-2022 End: 02-03-[address] DONNA HERRERA Facility:[facility] Start: 01-01-2022 End: 01-01-[address] DONNA HERRERA Facility:[facility] Start: 08-05-2021 End: 08-05-2021 ambulatory Trino Helio Other [facility] Other Start: 08-05-2021 Office outpatient vi sit 15 minutes Trino Cadet [facility] Procedures Date Procedure Procedure [...] Work Phone: Start: 09-23-2023 Follow-up visit Follow-up [facility] Start: 05-24-2023 X-ray of lumbar spin e, four views MD Donna Herrera Work Phone: Start: 09-03-[address] VINCENT HERRERA Comment on above: Performed By: #### [facility] #### [facility] [address] [place] [address] Dr. Randall Ayoub Arthroscopy of shoulder Keron ael NILL History of lumbar laminectomy Michel FUENTESKaelyn History of repair of musculotendinous cuff of shoulder Trino Cadet Other [facility] assisted in si tu keratomileusis Michel FUENTESKaelyn Lumbar spinal fusion Michel ROBBINS Plan of Treatment Date Care Activity Detail Author Start: 01-01-2032 DTaP,Tdap and Td Vaccines (3 - Td or Tdap) DTaP,Tdap and Td Vaccines (3 - Td or Tdap) [facility] Start: 09-23-2024 Adult BMI Screening Adult BMI Screen ing [facility] Start: 09-23-2024 Tobacco Screening Tobacco Screening [facility] Start: 09-02-2024 Adult BMI Screening Adult BMI Screen ing [facility] Start: 09-02-2024 Tobacco Screening Tobacco Screening [facility] Start: 08-19-2024 Adult BMI Screening Adult BMI Screen ing [facility] Start: 08-19-2024 Tobacco Screening Tobacco Screening [facility] Start: 12-02-2023 End: 12-02-2023 Patient encounter procedure 12/02/2023 3:00 PM EDT Office Visit [facility] [address] [place] [address] [phone] Darrell Olsen MD [address] [place] [phone] [facility] Start: 10-29-2023 [facility] Start: 10-27-2023 Hospital admission [facility] Start: 10-27-2023 Referral to clinical unitizer [facility] Start: 10-22-2023 End: 10-22-2023 Admission to same day surgery center 10/22/2023 7:30 AM EST - 10/22/2023 9:15 AM EST Surgery [facility] [address] [place] [phone] Darrell Olsen MD [address] [place] [address] [address] [place] [phone] LAMINECTOMY LUMBAR SINGLE LEVEL / L1-L2 [facility] Comment on above: LAMINECTOMY LUMBAR S RICHMOND LEVEL / L1-L2 Start: 10-22-2023 End: 10-22-2023 LAMINECTOMY LUMBAR SINGLE LEVEL LAMINECTOMY LUMBAR SINGLE LEVEL Spinal stenosis of lumbar region with neurogenic claudication 10/22/2023 7:30 AM EST [facility] Start: 10-22-2023 Subsequent hospital visit by physician 10/22/2023 7:30 AM EST Hospital Encounter [facility] [address] [place] [phone] Darrell Olsen MD [address] [place] [phone] [facility] Start: 10-08-2023 End: 10-08-2023 Patient encounter procedure 10/08/2023 1:15 PM EST Procedure visit [facility] [address] [phone] [facility] Start: 09-23-2023 End: 09-23-2023 Patient encounter procedure 09/23/2023 11:50 AM EST Office Visit [facility] [address] [place] [phone] Darrell Olsen MD [address] [place] [phone] [facility] Start: 09-02-2023 End: 09-02-2024 XR Lumbar spine Views AP W right bending and W left bending [facility] Work Phone: Comment on above: Expected: 09/02/2023 , Expires: 09/02/2024 Start: 09-02-2023 End: 09-02-2023 Patient encounter procedure 09/02/2023 10:15 AM EST Office Visit [facility] [address] [place] [phone] Darrell Olsen MD [address] [place] [phone] [facility] Start: 1987 Adult BMI Follow Up Plan Adult [facility] Start: 1981 Depression [facility]ening [facility] End: 09-01-2024 CT Lumbar spine WO contrast CT lumbar spine without contrast Imaging Routine Spinal stenosis of lumbar region with neurogenic claudication History of lumbar fusion Radiculopathy, lumbar region Lumbar radiculopathy 1 Occurrences starting 09/02/2023 until 09/01/2024 [facility] Comment on above: 1 Occurrences starti ng 09/02/2023 until 09/01/2024 Patient Education Spinal Stenosi s (DC) Spinal Fusion (DC) [facility] Work Phone: Patient referral [facility] Work Phone: Immunizations Immunization Date Immunization Notes Care Provider Fa cili 05-19-2023 influenza virus vaccine, unspecified formulation Michel ROBBINS [facility] 04-28-2022 SARS-CoV-2 (COVID-19 ) [id number] Michel ROBBINS [facility] 08-04-2021 SARS-CoV-2 (COVID-19 ) mRNA BNT-162b2 vax Michel ROBBINS [facility] 11-16-2020 SARS-CoV-2 (COVID-19 ) mRNA BNT-162b2 vax Michel ROBBINS [facility] 10-26-2020 SARS-CoV-2 (COVID-19 ) mRNA BNT-162b2 vax Michel ROBBINS [facility] Payers Date Payer Category Payer Medicare [id number] 2023 Medicare [id number] 2023 Unknown [employer] [id number] 2023-Present [phone] [address] [place] [address] [id number] 2023 Self-pay [id number] 1969 Unknown [id number] 2.16.840.1.803976.3.579.2 .593 1969 Unknown [id number] 2.16.840.1.890772.3.579.2 .593 1969 Unknown [id number] 2.16.840.1.945965.3.579.2 .593 1969 Unknown [id number] 2.16.840.1.673753.3.579.2 .593 1969 Unknown [id number] 2.16.840.1.057268.3.579.2 .1286 1969 Unknown [id number] 2.16.840.1.209001.3.579.2 .1286 1969 Unknown [id number] 2.16.840.1.817140.3.579.2 .1286 1969 Unknown [id number] 2.16.840.1.278612.3.579.2 .1286 1969 Unknown [id number] 2.16.840.1.739039.3.579.2 .1286 1969 Unknown [id number] 2.16.840.1.882759.3.579.2 .1286 1969 Unknown [id number] 2.16.840.1.136100.3.579.2 .1286 1969 Unknown [id number] 2.16.840.1.594910.3.579.2 .1286 1969 Unknown [id number] 2.16.840.1.033174.3.579.2 .1286 1969 Unknown [id number] 2.16.840.1.280210.3.579.2 .1286 1969 Unknown [id number] 2.16.840.1.006617.3.579.2 .1286 1969 Unknown [id number] 2.16.840.1.059177.3.579.2 .1286 1969 Unknown [id number] 2.16.840.1.114953.3.579.2 .727 1969 Unknown [id number] 2.16.840.1.163889.3.579.2 .1286 1969 Unknown [id number] 2.16.840.1.567718.3.579.2 .6 1969 Unknown [id number] 2.16.840.1.382154.3.579.2 .1286 1969 Unknown [id number] 2.16.840.1.342981.3.579.2 .1286 1969 Unknown [id number] 2.16.840.1.198173.3.579.2 .1286 1959 Unknown [id number] Private Health Insurance [id number] 2.16.840.1.238526.19 Unknown [id number] 2.16840.1.374990.3.579.2 .531 Unknown [id number] 2.16840.1.180279.3.579.2 .531 Social History Date Type Detail Facility Start: 09-26-2020 End: 08-19-2023 Sex Assigned At [facility] Start: 05-29-2020 End: 11-16-2023 Tobacco smoking status NHIS Never smoked tobacco (finding) [facility] Start: 1970 Sex Assigned At Male [facility] Start: 06-04-2022 End: 10-08-2023 Tobacco use and exposure Former smokeless tobacco user [facility] Start: 08-19-2023 End: 10-08-2023 Alcohol intake Ex-drinker (finding) [facility] Start: 09-26-2020 End: 08-19-2023 History of Social function [facility] Housing Instability Unknown [facility] Start: 01-24-2018 Alcohol Comment stopped 18 months ag o [facility] Start: 1970 Sex Assigned At Not on file P [facility] End: 08-16-1996 History of tobacco use Chews Tobacco [facility] Medical Equipment Procedure Code Equipment Code Equipment Origin al Text Equipment Identifier Dates Fusion, spine, lumbar, XLIF CANCELLOUS 7.5 CRUSHED FDA Start: 05-29-2020 Fusion, spine, lumbar, XLIF Bone-screw internal spinal fixation system, non-sterile [id number] FDA Start: 05-29-2020 Fusion, spine, lumbar, XLIF CANCELLOUS COARSE 7.5CC FDA Start: 05-29-2020 Fusion, spine, lumbar, XLIF Orthopaedic bone screw, non-bioabsorbable, non-sterile [id number] FDA Start: 05-29-2020 Fusion, spine, lumbar, XLIF Orthopaedic bone screw, non-bioabsorbable, non-sterile [id number] FDA Start: 05-29-2020 Fusion, spine, lumbar, XLIF STRATOFUSE DBM 10CC FDA Start: 05-29-2020 Fusion, spine, lumbar, XLIF Bone-screw internal spinal fixation system, non-sterile [id number] FDA Start: 05-29-2020 Fusion, spine, lumbar, XLIF Bone-screw internal spinal fixation system, non-sterile [id number] FDA Start: 05-29-2020 Fusion, spine, lumbar, XLIF STRATOFUSE DBM 5CC FDA Start: 05-29-2020 Fusion, spine, lumbar, XLIF Spinal fusion graft kit ([id number] FDA Start: 05-29-2020 Fusion, spine, lumbar, XLIF Metallic spinal fusion cage, non-sterile [id number] FDA Start: 05-29-2020 Fusion, spine, lumbar, XLIF Metallic spinal fusion cage, non-sterile [id number] FDA Start: 05-29-2020 Fusion, spine, lumbar, XLIF Polymeric spinal interbody fusion cage [id number] FDA Start: 05-29-2020 Fusion, spine, lumbar, XLIF CANCELLOUS 7.5 CRUSHED FDA Start: 05-29-2020 Fusion, spine, lumbar, XLIF CANCELLOUS COARSE 7.5CC FDA Start: 05-29-2020 Fusion, spine, lumbar, XLIF STRATOFUSE DBM 10CC FDA Start: 05-29-2020 Fusion, spine, lumbar, XLIF STRATOFUSE DBM 5CC FDA Start: 05-29-2020 Kt Repr Shldr Ea=Bill-Only - [id number] - [id number] Start: 06-07-2018 Goals Date Patient Goal Desired Activity /State Functional Status Date Assessment Result Facility 11-16-2023 Functional Status N/A [facility] 10-27-2023 Functional status Patient Not at Baseline [facility] Work Phone: Mental Status Date Assessment Result Facility 10-27-2023 Cognitive function Cognitive Sta tus Patient Not at Baseline [facility] Work Phone: Clinical Notes 06-07-2018 to 11-16-2023 Note Date & Type Note Facility 11-16-2023 Note Chief Complaint consultation for anemia HPI Staff 53 year old male presents on consultation from Dr. Herrera for anemia. Labs completed 10/05 with H/H 12.7/39.6. Denies dizziness, lightheadedness, or SOB. Denies abdominal or rectal pain. No rectal bleeding or change in bowel habits. Denies nausea or vomiting. No unexplained weight loss. Never had colonoscopy in the past. No known family history of colon cancer. History of Present Illness 53 yo male with h/o htn, lumbar spinal stenosis, chronic back pain, referred for mild anemia picked up on routine labs; no change in bms or blood in stools, no abd complaints; no fatigue; no abdominal operations or previous endoscopy; on baby asa and Diclofenac daily; no fmxhx of GI malignancy or IBD; no tobacco use, smokes marijuana daily. Review of Systems PHQ Score Initial Depression Screen Score: 0 SCORE ROS - Provider Constitutional: no fever, no sweats, no weight loss. Eyes: no glasses, no blurred vision, no visual loss. ENMT: no dentures, no hoarseness, no swallowing difficulties, no hearing loss, no ear infection(s), no nose bleeds. Cardiovascular: normal blood pressure, no chest pain, regular heartbeat, no heart murmur. Respiratory: no shortness of breath, no cough, no asthma, no wheezing. Gastrointestinal: no nausea, no vomiting, no diarrhea, no constipation, no blood in stool, no change in bowel habits, no abdominal pain, no hepatitis. Genitourinary: no kidney stones, no urine infection, no dysuria. Musculoskeletal: no pain, no weakness. Skin: no changing moles, no rash, no skin lumps. Neurologic: no seizures, no epilepsy, no headache. Psychiatric: no emotional or psychiatric problem. Heme/Lymph: no bleeding problems, no anemia, no blood clots, no transfusions. Allergy/Immunologic: no swollen lymph nodes/glands, no IV drug abuse. Other: Additional ROS info: Except as noted in the above Review of Systems and in the History of Present Illness, all other systems have been reviewed and are negative or noncontributory. Physical Exam Vitals & Measurements HR: 72(Peripheral) RR: 16 BP: 118/78 HT: 68 in HT: 172.72 cm WT: 94 kg WT: 206.8 lb BMI: 31.51 HEENT: normal conjunctiva, sclera clear, no scleral icterus, EOM intact, PERRLA, oral mucosa moist without lesions. Neck: trachea midline, no mass, symmetric, no thyromegaly or nodules, no adenopathy Respiratory: lungs CTA, respirations non labored. Cardiovascular: regular rate and rhythm, no murmur, no pedal edema or varicosities. Gastrointestinal: soft, non distended, no tenderness, no masses, small umbilical hernia, diastasis recti yes, no hepatosplenomegaly; normal bs Lymphatic: no cervical adenopathy, no supraclavicular adenopathy. Musculoskeletal: normal gait, digits and nails without infection, nodes, cyanosis, clubbing. Skin: no rashes, 5 mm lesion left pinna, nonpigmented, no ulceration or bleeding, tender, no ulcers, no subcutaneous nodules, induration. Psychiatric/Neuro: oriented to time, place, person, judgement normal, affect appropriate for age, insight intact, no focal deficits. Tests: labs reviewed, , review of old records completed , Discussed surgical options, risks, and possible complications with patient. Assessment/Plan 1. Anemia (D64.9: Anemia, unspecified) plan EGD and colonoscopy under anesthesia for further evaluation; 2. 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 Medications aspirin 81 mg Oral EC Tab, 81 mg= 1 tab(s), Oral, Daily cetirizine 10 mg Tab, 10 mg= 1 tab(s), Oral, Daily, PRN diazepam 2 mg Tab, 2 mg= 1 tab(s), Oral, Daily, PRN diclofenac sodium 75 mg Oral EC Tab, 75 mg= 1 tab(s), Oral, BID FLUoxetine 40 mg Cap, 40 mg= 1 cap(s), Oral, Daily gabapentin 600 mg Tab, 600 mg= 1 tab(s), Oral, TID liothyronine 5 mcg Tab, 10 mcg= 2 tab(s), Oral, Daily Multi Vitamins oral tablet, 1 tab(s), Oral, Daily Symbicort 160/4.5 inhalation aerosol with adapter, 2 puff(s), Inhalation, BID Ventolin HFA 90 mcg/inh Aerosol-Adpt, 2 puff(s), Inhalation, q4hr, PRN Allergies No Known Allergies No Known Medication Allergies Social History Alcohol - Denies Alcohol Use, 11/16/2023 Substance Abuse Current, Marijuana, Daily, 11/16/2023 Tobacco Never (less than 10 (more content not included)... [facility] Comment on above: Result Comment: Elec tronically Signed By: ROSENDO OROURKE, Michel Sue\Date and Time Signed: 11/16/23 13:49 EDT 10-28-2023 History and physi brigido note Note Date/Time October 28, 2023 10:24am [facility] [address] [place], [place] [id number] Physiatry (Rehab) H&P Signed Patient: Celestino Peñaloza MR#: [id number] : 1970 Acct:[id number] Age/Sex: 53 / M Adm Date: 4 Loc: 5T Room: 6H5700-8 Type: ADM IN Attending Dr: Qasim Mancilla MD Copies to: MD Donna Mcmanus MD~ Date of Service: 10/28/2023 HPI History of Present Illness: Mr. Peñaloza is a 53 year old male with past medical history of lumbar spinal stenosis with neurogenic claudication who presented to [facility] on 10/21 for elective L1-L2 decompressive laminectomy [...] independent. Patient hopeful to go home soon. [facility] Medical History (Updated 10/28/23 @ 12:47 by [...] mcg/actuation aerosol inhaler (ProAir HFA) 2 inh [id number] PRN shortness of breath or wheezing 10/27/23 [...] Bisacodyl (Bisacodyl 10 Mg Supp.Rect) 10 mg AL DAILY PRN PRN Reason: Constipation Stop: 10/26/24 [...] Enema 283 Mg/5 Ml Enema) 283 mg AL DAILY PRN PRN Reason: Constipation Stop: 10/26/24 14:24 Famotidine (Famotidine 20 Mg Tablet) 20 mg PO BID [facility] Stop: 10/26/24 20:59 Last Admin: 10/28/23 09:25 Dose: 20 mg Fluoxetine HCl (Fluoxetine 20 Mg Capsule) 40 mg PO QAM [facility] Stop: 10/27/24 08:59 Last Admin: 10/28/23 09:25 Dose: 40 mg Gabapentin (Gabapentin 800 Mg Tablet) 800 mg PO TID [facility] Stop: 10/26/24 21:59 Last Admin: 10/28/23 09:25 Dose: 800 mg Heparin Sodium (Porcine) (Heparin 5,000 Unit/Ml Vial) 5,000 unit SUBCUT Q8HR [facility] Stop: 10/28/24 21:59 Lactulose (Lactulose 20 Gm/30 Ml Udc) 30 gm PO DAILY PRN PRN Reason: Constipation Stop: 10/26/24 14:24 Liothyronine Sodium (Liothyronine 5 Mcg Tablet) 5 mcg PO DAILY [facility] Stop: 10/27/24 08:59 Last Admin: 10/28/23 09:25 Dose: 5 mcg Loratadine (Loratadine 10 Mg Tablet) 10 mg PO DAILY [facility] Stop: 10/27/24 08:59 Last Admin: 10/28/23 09:25 Dose: 10 mg Multivitamins (Multivitamin 1 Tab Tablet) 1 tab PO DAILY@1200 [facility] Stop: 10/27/24 11:59 Oxycodone HCl (Oxycodone Ir [...] % (Auto) 61.0 Lymph % (Auto) 28.7 Gallia % (Auto) 9.6 Eos % (Auto) 0.4 Baso % (Auto) 0.3 Nucleat RBC Rel Count 0.1 Neut # (Auto) 4.5 Lymph # (Auto) 2.1 Gallia # (Auto) 0.7 Eos # (Auto) 0.0 [...] 24 hour daily monitoring and intervention from Furniture Shampooer as well as other consulting physicians including internal medicine as well as 24 hour daily resource conservationist nursing - for medical safe / optimal [...] a 53-year-old male with who presents to [facility] due to functional decline in the [...] equipment to enhance the patient's a functional yarsani -Encourage deep breathing exercises and incentive spirometry [...] chart, including current orders, allied health and statistical consultant notes, labs/imaging and performed butt elements of exam and I formulated the plan of care and facilitated the medical decision making. I completed a substantive portion of this encounter, the medical decision makingportion of this note in its entirety, including Allied health note review, nursing note review, statistical consultant note review, discussion with nursing and case management, and more than 50% of my time was spent on counseling and coordination of care, time spent 75 minutes Documented By: Qasim Mancilla MD [id number] Signed By: <Electronically signed by Qasim Mancilla MD> 10/28/23 1257 [facility] Work Phone: 1(451) 659-110502-23-2024 Miscellaneous Notes* Telephone Encounter - Radha Bustillos RN - 10/08/2023 4:01 PM EST PTT of 40 called from lab. 10/22/23 LAMINECTOMY LUMBAR SINGLE LEVEL / L1-L2 documented in this encounterWood County HospitalConscious Box02-23-2024 Telephone encounter Note* Telephone Encounter - Radha Bustillos RN - 10/08/2023 4:01 PM EST PTT of 40 called from lab. 10/22/23 LAMINECTOMY LUMBAR SINGLE LEVEL / L1-L2 [facility]02-[facility]24 History and physical note* Beata Esteban, SOURCING INTERNSHIP-WRAPPER SORTER - 10/08/2023 1:15 PM EST PRE-ADMISSION TESTING HISTORY AND PHYSICAL EXAM DATE: 10/08/23 PCP: DONNA HERRERA MD CHIEF COMPLAINT: Spinal stenosis of lumbar region with neurogenic claudication HISTORY OF PRESENT ILLNESS: Celestino Peñaloza, a 53 y.o. White or male, presents to [facility] for a pre-surgical H&P. The patient has been diagnosed with spinal stenosis of lumbar region with neurogenic claudication. He reports he has dealt with back pain since he was young, but it has gradually gotten worse. 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 He rates his pain [...] HISTORY: Past Medical History: Diagnosis Date Alcoholism ([facility]) Anemia Asthma Back pain Chronic pain disorder Cough Environmental allergies Hypertension history of this, not currently treated Hypothyroidism Low back pain Neck pain Spinal stenosis of lumbar region with neurogenic claudication Visual impairment lasik PAST SURGICAL HISTORY: Past Surgical History: Procedure Laterality Date ARTHROSCOPY REPAIR LESION SUPERIOR LABRUM EXTENDING FROM ANTERIOR TO POSTERIOR (SLAP) SHOULDER Left06/07/2018 Performed by Jr Christian Estrada DO at [facility] ARTHROSCOPY REPAIR ROTATOR CUFF SHOULDER Left 06/07/2018 Performed by Jr Christian Estrada DO at [facility] ARTHROSCOPY SHOULDER Left 06/07/2018 Performed by Jr Christian Estrada DO at [facility] INJECTION BLOCK SACROILIAC JOINT Bilateral 06/04/2023 Performed by Dave Garcia MD at [facility] IN[facility]CTION BLOCK SACROILIAC JOINT Bilateral 03/19/2023 Performed by Dave Garcia MD at [facility] IN[facility]CTION BLOCK SACROILIAC JOINT Bilateral 01/15/2023 Performed by Dave Garcia MD at [facility] IN[facility]CTION BLOCK SACROILIAC JOINT Bilateral 09/04/2022 Performed by Dave Garcia MD at [facility] IN[facility]CTION BLOCK SACROILIAC JOINT Right 05/22/2022 Performed by Dave Garcia MD at [facility] IN[facility]CTION BLOCK SACROILIAC JOINT Bilateral 02/20/2022 Performed by Dave Garcia MD at [facility] IN[facility]CTION BLOCK SACROILIAC JOINT Bilateral 10/20/2021 Performed by Dave Garcia MD at [facility] IN[facility]CTION BLOCK SACROILIAC JOINT Bilateral 12/13/2020 Performed by Dave Garcia MD at [facility] INJECTION BURSA LARGE JOINT Right hip intra-articular Right 02/21/2021 Performed by Dave Garcia MD at [facility] INJECTION BURSA LARGE JOINT: right hip Right 03/27/2022 Performed by Dave Garcia MD at [facility] IN[facility] CAUDAL EPIDURAL WITH CATHETER, STEROID N/A 02/23/2020 Performed by Dave Garcia MD at [facility] CAUDAL EPIDURAL WITH CATHETER, STEROID N/A 01/15/2020 Performed by Dave Garcia MD at [facility] IN[facility] CAUDAL EPIDURAL WITH CATHETER, STEROID N/A 06/23/2019 Performed by Dave Garcia MD at [facility] IN[facility] CAUDAL EPIDURAL WITH CATHETER, STEROID N/A 05/05/2019 Performed by Dave Garcia MD at [facility] IN[facility] CAUDAL EPIDURAL WITH CATHETER, STEROID N/A 08/12/2018 Performed by Dave Garcia MD at [facility] IN[facility] CAUDAL EPIDURAL WITH CATHETER, STEROID 1 of 2 N/A 01/28/2018 Performed by Dave Garcia MD at [facility] IN[facility] CAUDAL EPIDURAL WITH CATHETER, STEROID 2 of 2 N/A 02/11/2018 Performed by Dave Garcia MD at [facility] SPINE TRANSFORAMINAL Left L 1,2 Nroot Left 01/24/2021 Performed by Dave Garcia MD at [facility] INJECTION SPINE TRANSFORAMINAL: left L 1,2 nroot Left 04/17/2022 Performed by Dave Garcia MD at [facility] INJECTION SPINE TRANSFORAMINAL: right L 1,2 nroot Right 04/16/2023 Performed by Dave Garcia MD at [facility] LUMBAR FUSION 2020 L2-S1 REFRACTIVE SURGERY [...] Olsen on 10/22/23. DI Singletary 10/08/23 1426 [employer] Work Phone: [phone]) 177-640302-23-2024 History and physical note* DI Singletary - 10/08/2023 1:15 PM EST PRE-ADMISSION TESTING HISTORY AND PHYSICAL EXAM DATE: 10/08/23 PCP: DONNA HERRERA MD CHIEF COMPLAINT: Spinal stenosis of lumbar region with neurogenic claudication HISTORY OF PRESENT ILLNESS: Celestino Peñaloza, a 53 y.o. White or male, presents to [facility] for a pre-surgical H&P. The patient has been diagnosed with spinal stenosis of lumbar region with neurogenic claudication. He reports he has dealt with back pain since he was young, but it has gradually gotten worse. 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 He rates his pain [...] HISTORY: Past Medical History: Diagnosis Date Alcoholism ([facility]) Anemia Asthma Back pain Chronic pain disorder Cough Environmental allergies Hypertension history of this, not currently treated Hypothyroidism Low back pain Neck pain Spinal stenosis of lumbar region with neurogenic claudication Visual impairment lasik PAST SURGICAL HISTORY: Past Surgical History: Procedure Laterality Date ARTHROSCOPY REPAIR LESION SUPERIOR LABRUM EXTENDING FROM ANTERIOR TO POSTERIOR (SLAP) SHOULDER Left06/07/2018 Performed by Jr Christian Estrada DO at [facility] ARTHROSCOPY REPAIR ROTATOR CUFF SHOULDER Left 06/07/2018 Performed by Jr Christian Estrada DO at [facility] ARTHROSCOPY SHOULDER Left 06/07/2018 Performed by Jr Christian Estrada DO at [facility] INJECTION BLOCK SACROILIAC JOINT Bilateral 06/04/2023 Performed by Dave Garcia MD at [facility] INJECTION BLOCK SACROILIAC JOINT Bilateral 03/19/2023 Performed by Dave Garcia MD at [facility] INJECTION BLOCK SACROILIAC JOINT Bilateral 01/15/2023 Performed by Dave Garcia MD at [facility] INJECTION BLOCK SACROILIAC JOINT Bilateral 09/04/2022 Performed by Dave Garcia MD at [facility] INJECTION BLOCK SACROILIAC JOINT Right 05/22/2022 Performed by Dave Garcia MD at [facility] INJECTION BLOCK SACROILIAC JOINT Bilateral 02/20/2022 Performed by Dave Garcia MD at [facility] INJECTION BLOCK SACROILIAC JOINT Bilateral 10/20/2021 Performed by Dave Garcia MD at [facility] INJECTION BLOCK SACROILIAC JOINT Bilateral 12/13/2020 Performed by Dave Garcia MD at [facility] INJECTION BURSA LARGE JOINT Right hip intra-articular Right 02/21/2021 Performed by Dave Garcia MD at [facility] BURSA LARGE JOINT: right hip Right 03/27/2022 Performed by Dave Garcia MD at [facility] INJECTION CAUDAL EPIDURAL WITH CATHETER, STEROID N/A 02/23/2020 Performed by Dave Garcia MD at [facility] CAUDAL EPIDURAL WITH CATHETER, STEROID N/A 01/15/2020 Performed by Dave Garcia MD at [facility] INJECTION CAUDAL EPIDURAL WITH CATHETER, STEROID N/A 06/23/2019 Performed by Dave Garcia MD at [facility] IN[facility] CAUDAL EPIDURAL WITH CATHETER, STEROID N/A 05/05/2019 Performed by Dave Garcia MD at [facility] INJECTION CAUDAL EPIDURAL WITH CATHETER, STEROID N/A 08/12/2018 Performed by Dave Garcia MD at [facility] INJECTION CAUDAL EPIDURAL WITH CATHETER, STEROID 1 of 2 N/A 01/28/2018 Performed by Dave Garcia MD at [facility] INJECTION CAUDAL EPIDURAL WITH CATHETER, STEROID 2 of 2 N/A 02/11/2018 Performed by Dave Garcia MD at [facility] INJECTION SPINE TRANSFORAMINAL Left L 1,2 Nroot Left 01/24/2021 Performed by Dave Garcia MD at [facility] INJECTION SPINE TRANSFORAMINAL: left L 1,2 nroot Left 04/17/2022 Performed by Dave Garcia MD at [facility] INJECTION SPINE TRANSFORAMINAL: right L 1,2 nroot Right 04/16/2023 Performed by Dave Garcia MD at [facility] LUMBAR FUSION 2020 L2-S1 REFRACTIVE SURGERY [...] DI Singletary 10/08/23 1426 documented in this encounterGifford Medical CenterLFR Communications, Inc02-23-2024 Instructions* Patient Instructions* Katina Mckeon RN - 10/08/2023 1:15 PM EST Your surgery/procedure is scheduled at [facility] on 10/22/2023 at 0730 Arrival Time 0530 [facility] Address: [address] [place] [address] in P1 Parking lot located on [facility]. Report to the Entrance B. Check in at the information desk the surgery. The waiting room located on the second floor. If you have any questions prior to surgery, please call Pre-Admission Clinic at [phone] between 7:30 am and 4:30 pm Wednesday through Wednesday. If you have questions the morning of surgery, please call the Pre-op Department at [phone]. Notify your SURGEON if you develop any [...] would [facility] to [facility], please call [phone] ([phone]). Do not use lotions, creams, powders, perfume, [...] RIGHTS AND RESPONSIBILITIES As a patient at [facility], you have the right to: Receive medical care and be informed of who is taking care of you Be treated with dignity and respect Have a family member/telephone service representative of choice and your physician notified of your admission Receive information and actively participate in decisions about your care and treatment Refuse care, treatment and services Decide who may provide your support and speak for you Access [facility] and spiritual services Participate in ethical issues [...] of hospital charges and payment methods Patient/patient telephone service representative responsibilities are to: Provide information about [...] surgery in clean clothes. documented in this encounterTrumbull Memorial Hospital02-08-2024 NoteXR CHEST 2 VWS CLINICAL INFORMATION: . Pre-op testing. TECHNIQUE/PROCEDURE: Chest radiographs, two views. COMPARISON: Prior chest radiographs, most recently 05/24/2018 FINDINGS: No tracheal deviation. Cardiac and mediastinal contours are normal. No consolidation, pneumothorax or pleural effusion. No free air. IMPRESSION: * No radiographic evidence of acute cardiopulmonary disease. Finalized by Brenden Zapien MD on 09/23/2023 4:11 [facility] 09-23-2023 NoteCLINICAL INFORMATION: . Pre-op testing. TECHNIQUE/PROCEDURE: Chest radiographs, two views. COMPARISON: Prior chest radiographs, most recently 05/24/2018 FINDINGS: No tracheal deviation. Cardiac and mediastinal contours are normal. No consolidation, pneumothorax or pleural effusion. No free air. IMPRESSION: * No radiographic evidence of acute cardiopulmonary disease. Finalized by Brenden Zapien MD on 09/23/2023 4:11 [id number] History of Present illness Narrative* Charles Lama, [employer]WR[employer]PER SORTER - 09/23/2023 11:50 AM EST Images from the original note were not included. [facility] [address] [place] [address], [address] [place] [address] * CHART NOTE ? 09/23/2023 Patient: Celestino Peñaloza 1970 [id number] Physician: Darrell Olsen MD CHIEF COMPLAINT Low [...] to the patient's understanding. Denies loss of medical customer service representative strength, saddle anesthesia, urinary or bowel dysfunction, [...] Right achilles: 2+ Left achilles: 2+ Right medical customer service representative: 2+ Left medical customer service representative: 2+ Right Dumont: absent Left Dumont: absent [...] record of the patient encounter. Inadvertent computerized rubber turner errors related to syntax, spelling, homophones, and/or inaudibility may be present. DI Cha 09/23/23 1548 documented in this encounterGifford Medical CenterLFR Communications, Inc02-08-2024 Instructions* Patient Instructions* VIGNESH Hoover - 09/23/2023 11:50 AM EST Patient was seen by Dr. Olsen and DI Resendiz Patient was offered surgery for L1-L2 Laminectomy with Fusion. Patient will meet with Dr. Pretty Maradiaga's neurosurgery research director, to schedule surgery. Patient was given an order for a chest x ray. JA documented in this encounterTrumbull Memorial Hospital02-01-2024 Miscellaneous Notes* Telephone Encounter - Kathy Peñaloza CNA - 09/16/2023 2:24 PM EST Last OV: 08/19/23 Next OV: 09/23/23 With Pretty VALERIO appropriate: yes Last UDS: na Pharmacy: [facility] documented in this encounterTrumbull Memorial Hospital02-01-2024 Telephone encounter Note* Telephone Encounter - Kathy Peñaloza CNA - 09/16/2023 2:24 PM EST Last OV: 08/19/23 Next OV: 09/23/23 With Pretty VALERIO appropriate: yes Last UDS: na [facility]acy[facility]01-18-2024 History of Present illness Narrative* Charles Lama APRN-DEX - 09/02/2023 10:15 AM EST Images from the original note were not included. [facility] [address] [place] [address], [address] [place] [address] * CHART NOTE ? 09/02/2023 Patient: Celestino Peñaloza 1970 [id number] Nurse Practitioner: Charles Lama CNP Physician: Darrell [...] good candidate for that. Denies loss of medical customer service representative strength, saddle anesthesia, urinary or bowel dysfunction, [...] HISTORY Past Medical History: Diagnosis Date Alcoholism ([facility]) Anxiety Back pain Chronic pain disorder Cough Depression Environmental allergies Hypertension history of this, not currently treated Low back pain Neck pain Visual impairment contacts PAST SURGICAL HISTORY Past Surgical History: Procedure Laterality Date ARTHROSCOPY REPAIR LESION SUPERIOR LABRUM EXTENDING FROM ANTERIOR TO POSTERIOR (SLAP) SHOULDER Left06/07/2018 Performed by Jr Christian Estrada DO at [facility] ARTHROSCOPY REPAIR ROTATOR CUFF SHOULDER Left 06/07/2018 Performed by Jr Christian Estrada DO at [facility] ARTHROSCOPY SHOULDER Left 06/07/2018 Performed by Jr Christian Estrada DO at [facility] INJECTION BLOCK SACROILIAC JOINT Bilateral 06/04/2023 Performed by Dave Garcia MD at [facility] IN[facility]CTION BLOCK SACROILIAC JOINT Bilateral 03/19/2023 Performed by Dave Garcia MD at [facility] INJECTION BLOCK SACROILIAC JOINT Bilateral 01/15/2023 Performed by Dave Garcia MD at [facility] INJECTION BLOCK SACROILIAC JOINT Bilateral 09/04/2022 Performed by Dave Garcia MD at [facility] INJECTION BLOCK SACROILIAC JOINT Right 05/22/2022 Performed by Dave Garcia MD at [facility] INJECTION BLOCK SACROILIAC JOINT Bilateral 02/20/2022 Performed by Dave Garcia MD at [facility] INJECTION BLOCK SACROILIAC JOINT Bilateral 10/20/2021 Performed by aDve Garcia MD at [facility] IN[facility]CTION BLOCK SACROILIAC JOINT Bilateral 12/13/2020 Performed by Dave Garcia MD at [facility] INJECTION BURSA LARGE JOINT Right hip intra-articular Right 02/21/2021 Performed by Dave Garcia MD at [facility] BURSA LARGE JOINT: right hip Right 03/27/2022 Performed by Dave Garcia MD at [facility] CAUDAL EPIDURAL WITH CATHETER, STEROID N/A 02/23/2020 Performed by Dave Garcia MD at [facility] IN[facility] CAUDAL EPIDURAL WITH CATHETER, STEROID N/A 01/15/2020 Performed by Dave Garcia MD at [facility] IN[facility] CAUDAL EPIDURAL WITH CATHETER, STEROID N/A 06/23/2019 Performed by Dave Garcia MD at [facility] IN[facility] CAUDAL EPIDURAL WITH CATHETER, STEROID N/A 05/05/2019 Performed by Dave Garcia MD at [facility] INJECTION CAUDAL EPIDURAL WITH CATHETER, STEROID N/A 08/12/2018 Performed by Dave Garcia MD at [facility] INJECTION CAUDAL EPIDURAL WITH CATHETER, STEROID 1 of 2 N/A 01/28/2018 Performed by Dave Garcia MD at [facility] INJECTION CAUDAL EPIDURAL WITH CATHETER, STEROID 2 of 2 N/A 02/11/2018 Performed by Dave Garcia MD at [facility] INJECTION SPINE TRANSFORAMINAL Left L 1,2 Nroot Left 01/24/2021 Performed by Dave Garcia MD at [facility] SPINE TRANSFORAMINAL: left L 1,2 nroot Left 04/17/2022 Performed by Dave Garcia MD at [facility] SPINE TRANSFORAMINAL: right L 1,2 nroot Right 04/16/2023 Performed by Dave Garcia MD at [facility] REFRACTIVE SURGERY Bilateral FAMILY HISTORY Family [...] Right achilles 2+ Left achilles 2+ Right medical customer service representative 2+ Left medical customer service representative 2+ Right Dumont reflex absent and left [...] record of the patient encounter. Inadvertent computerized rubber turner errors related to syntax, spelling, homophones, and/or inaudibility may be present. Charles Lama APRN-DEX 09/02/23 1040 documented in this encounterTrumbull Memorial Hospital01-18-2024 Instructions* Patient Instructions* VIGNESH Hoover - 09/02/2023 10:15 AM EST Patient was seen by DI Resendiz Patient was given an order for CT Lumbar without contrast. Lumbar Spine Flex/Ext x ray. Patient will follow up when CT has been scheduled. JA documented in this encounterTrumbull Memorial Hospital01-04-2024 History of Present illness Narrative* CHIQUITA Wong - 08/19/2023 1:00 PM EST [facility] [address] [place] [address] Patient: Celestino Peñaloza Sex: male : 1970 Age: 53 y.o. PCP: DONNA HERRERA MD 08/19/2023 Celestino Peñaloza is here [...] Performed by Jr Christian Estrada DO at [facility] ARTHROSCOPY REPAIR ROTATOR CUFF SHOULDER Left 06/07/2018 Performed by Jr Christian Estrada DO at [facility] ARTHROSCOPY SHOULDER Left 06/07/2018 Performed by Jr Christian Estrada DO at [facility] INJECTION BLOCK SACROILIAC JOINT Bilateral 06/04/2023 Performed by Dave Garcia MD at [facility] BLOCK SACROILIAC JOINT Bilateral 03/19/2023 Performed by Dave Garcia MD at [facility] SACROILIAC JOINT Bilateral 01/15/2023 Performed by Dave Garcia MD at [facility] SACROILIAC JOINT Bilateral 09/04/2022 Performed by Dave Garcia MD at [facility] SACROILIAC JOINT Right 05/22/2022 Performed by Dave Garcia MD at [facility] SACROILIAC JOINT Bilateral 02/20/2022 Performed by Dave Garcia MD at [facility] SACROILIAC JOINT Bilateral 10/20/2021 Performed by Dave Garcia MD at [facility] SACROILIAC JOINT Bilateral 12/13/2020 Performed by Dave Garcia MD at [facility] INJECTION BURSA LARGE JOINT Right hip intra-articular Right 02/21/2021 Performed by Dave Garcia MD at [facility] BURSA LARGE JOINT: right hip Right 03/27/2022 Performed by Dave Garcia MD at [facility] CAUDAL EPIDURAL WITH CATHETER, STEROID N/A 02/23/2020 Performed by Dave Garcia MD at [facility] CAUDAL EPIDURAL WITH CATHETER, STEROID N/A 01/15/2020 Performed by Dave Garcia MD at [facility] CAUDAL EPIDURAL WITH CATHETER, STEROID N/A 06/23/2019 Performed by Dave Garcia MD at [facility] CAUDAL EPIDURAL WITH CATHETER, STEROID N/A 05/05/2019 Performed by Dave Garcia MD at [facility] CAUDAL EPIDURAL WITH CATHETER, STEROID N/A 08/12/2018 Performed by Dave Garcia MD at [facility] CAUDAL EPIDURAL WITH CATHETER, STEROID 1 of 2 N/A 01/28/2018 Performed by Dave Garcia MD at [facility] CAUDAL EPIDURAL WITH CATHETER, STEROID 2 of 2 N/A 02/11/2018 Performed by Dave Garcia MD at [facility] SPINE TRANSFORAMINAL Left L 1,2 Nroot Left 01/24/2021 Performed by Dave Garcia MD at [facility] SPINE TRANSFORAMINAL: left L 1,2 nroot Left 04/17/2022 Performed by Dave Garcia MD at [facility] INJECTION SPINE TRANSFORAMINAL: right L 1,2 nroot Right 04/16/2023 Performed by Dave Garcia MD at [facility] REFRACTIVE SURGERY Bilateral No Known Allergies [...] CHIQUITA Wong 08/24/23 0902 [facility] Encounter Date Diagnosis Assessment [...] fusion of lumbar spine (ICD-10 - Z98.1) [facility] Other 01-31-2023 Evaluation note* Encounter Date Diagnosis [...] fusion of lumbar spine (ICD-10 - Z98.1) [facility] Other 12-20-2022 Evaluation note* Encounter Date Diagnosis [...] Spondylolisthesis of lumbar region (ICD-10 - M43.16) [facility] Other 12-21-2021 Evaluation note* Encounter Date Diagnosis [...] Jul, Other chronic pain (ICD-10 - G89.29) [facility] Other 10-23-2018 History general Narrative - Reported* Type Description Date Medical History chronic depression Medical History asthma Surgical History LT SHOULDER SCOPE PER DR ACUNA IC 06/07/18 Surgical History rotator cuff(L) Surgical History lasik Surgical History [facility] Hospitalization History See Above [facility] Other discharge summary Author Qasim Mancilla [facility] November 01, 2023 9:31am Note Date/Time October 30, 2023 10: 15am [facility] [address] [place] [address] Discharge Summary Signed Patient: Celestino Peñaloza MR#: [id number] : 1970 Acct:[id number] Age/Sex: 53 / M Adm Date: 4 Loc: Room: 5N4575-[address]: Qasim Mancilla MD Copies to: [...] with chronic back pain. Patient went to [facility] October 21 for elective L1-2 compressive laminectomy and partial medial facetectomy with L1-2 fusion after failed conservative treatment. He was seen by therapy services and felt would benefit from ongoing therapy and subsequently transferred to the inpatient rehab unit here at [facility] October 27. Postoperatively the patient [...] <Electronically signed by Qasim Mancilla MD> 11/01/23 0931 [facility] Work Phone: Evaluation + Plan note No data available for this section [facility] Evaluation noteNo assessment information available [facility] Work Phone: Evaluation note* Diagnosis Spinal stenosis of lumbar region with neurogenic claudication- Primary [facility] in this encounter [facility] Diagnosis Spinal stenosis of lumbar region with neurogenic claudication- Primary History of lumbar fusion Radiculopathy, lumbar region Thoracic or lumbosacral neuritis or radiculitis, unspecified Lumbar radiculopathy Thoracic or lumbosacral neuritis or radiculitis, unspecified [facility]* Diagnosis Disorder of sacrum Disorders of sacrum documented in this encounter [facility]* Diagnosis Spinal stenosis of lumbar region with neurogenic claudication- Primary Pre-op testing Unspecified pre-operative examination Radiculopathy, lumbar region Thoracic or lumbosacral neuritis or radiculitis, unspecified Pre-op testing Unspecified pre-operative examination Spinal stenosis of lumbar region- Primary Spinal stenosis of lumbar region with neurogenic claudication documented in this encounter [facility]* Diagnosis Spinal stenosis of lumbar region- Primary Spinal stenosis of lumbar region with neurogenic claudication Spinal stenosis of lumbar region with neurogenic claudication documented in this encounter [facility]* Diagnosis Onset Date Resolution Status Asthma acute Depression with anxiety acut e Hypothyroid acute Impaired mobility and activities of daily living acute Lumbar spinal stenosis acute Post-operative pain acute S/P lumbar fusion acute [facility] Work Phone: Hospital Discharge instructions No data available for this section [facility] [place] InstructionsNot on filedocumented in this encounter [facility] SystemInstructionsNot on filedocumented in this encounter [facility] SystemInstructionsNot on filedocumented in this encounter [facility]Progress note No data available for this section [facility] [place] Reason for referral (narrative)* Consultation (Routine) - Pending Review Specialty Diagnoses / Procedures Referred By Yvon dickson Referred To Contact Neurosurgery Diagnoses Spinal stenosis of lumbar region with neurogenic claudication Xu Troy PA [address] [place] [address] Darrell Olsen MD [address] [place] [address] [address] [place] [id number] Referral ID Status Reason Start Date Expiration Date Visits Requested Visits Authorized [id number] Pending Review Specialty Services Required 08/24/2023 08/23/2024 1 1 [facility] Summary Purpose Family History No Family [...] Referral Specialty Diagnoses / Procedures Referred By Contac t Referred To Contact Radiology Diagnoses Spinal stenosis of lumbar region with neurogenic claudication History of lumbar fusion Radiculopathy, lumbar region Lumbar radiculopathy Procedures CT lumbar spine without contrast Charles Lama, [employer] [address] [place] [address] [place] [id number] Referral ID Status Reason Start Date Expiration Date V isits Requested Visits Authorized [id number] Pending Review 09/02/2023 09/01/2024 1 1 Reason Evaluate and Treat P T for Back and Leg Pain Diagnosis 1 Lumbar radiculopathy (M54.16) Referral Organization [facility] urosurgery Referring Provider First Name Trino Referring Provider Last Name Helio Referring Provider Specialty Neurologica l Surgery Referred Organization [facility] Referred Address ,[place], [place],[address] Referred Provider Specialty Physical The rapist Referral [...] Reason Comments Back Pain Reason Comments Consult VASCULAR SURGERY PHYSICIAN lumbar Specialty Diagnoses / Procedures Referred By Contac t Referred To Contact Neurosurgery Diagnoses Spinal stenosis of lumbar region with neurogenic claudication Xu Troy PA [address] [place] [address] Darrell Olsen MD [facility] [address] [phone] Referral ID Status Reason Start Date Expiration Date Visits Requested Visits Authorized [id number] Pending Review Specialty Services Required 08/24/2023 08/23/2024 1 1 Reason Onset Date Comments Med Refill 09/16/2023 Reason Comments Follow-up ep/review ct results (unrecognized sect ion and content) No Status Records FoundNo Status Records FoundNo Status Records FoundNo Status Records FoundNo Status Records FoundNo Status Records Found INFORMATION SOURCE (unrecogn ized section and content) DATE CREATED AUTHOR 09/09/[address] [facility] DATE CREATED AUTHOR AUTHOR'S ORGANIZ ATION 10/28/2023 [facility] DATE CREATED AUTHOR AUTHOR'S ORGANIZ ATION 11/26/2023 [facility] DATE CREATED AUTHOR AUTHOR'S ORGANIZ ATION 12/04/2023 [facility] DATE CREATED AUTHOR AUTHOR'S ORGANIZ ATION 12/05/2023 [facility] DATE CREATED AUTHOR AUTHOR'S ORGANIZ ATION 12/17/2023 [facility] Care Teams (unrecognized sec tion and content) Team Status: Active Member Role Status Dates Donna Herrera MD Primary Care Provider Active Team Status: Inactive Member Role Status Dates Donna Herrera MD Primary Care Provider Active Trino Cadet MD Attending Provider Active 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 Mechanic Relationship Specialty Start Date End Date Donna Herrera MD [address] [phone] PCP - General 05/24/18 Furnace Repair Mechanic Relationship Specialty Start Date End Date Donna Herrera MD [address] [phone] PCP - General 05/24/18 Furnace Repair Mechanic Relationship Specialty Start Date End Date Donna Herrera MD [address] [place] [address] PCP - General 05/24/18 Furnace Repair Mechanic Relationship Specialty Start Date End Date Donna Herrera MD [address] [place] [address] PCP - General 05/24/18 Furnace Repair Mechanic Relationship Specialty Start Date End Date Donna Herrera MD [address] [place] [address] PCP - General 05/24/18 Furnace Repair Mechanic Relationship Specialty Start Date End Date Donna Herrera MD [address] [place] [address] PCP - General 05/24/18 Team Status: Inactive [...] Kraft , CORNELL Other Provider Active Start: [facility] 2023 End: October 29, 2023 Alyce Mcintosh , CORNELL Other Provider Active Star t: October 27, 2023 End: October 29, 2023 Berkley Giron , CORNELL Other Provider Active Start : October 27, 2023 End: October 29, 2023 Jennifer Hatfield , CORNELL Other Provider Active Start: [facility] 2023 End: October 29, 2023 Perla Bunn , CORNELL Other Provider Active Start: [facility] 2023 End: October 29, 2023 Lena Tejeda MD Other Provider Active Start: October 27, 2023 End: October 29, 2023 Virgilio Ley MD Other Provider Active Start: [facility] 2023 End: October 29, 2023 Kathy Loya [...] October 27, 2023 End: October 29, 2023 Evelyn Medina MD Other Provider Active Start : October 27, 2023 End: October 29, 2023 Marcell Green MD Other Provider Active Start: [facility] 2023 End: October 29, 2023 Kathe Lentz APRN Other Provider Active Start: October 27, 2023 End: October 29, 2023 Mary Bowen MD Other Provider Active Start: October 27, 2023 End: October 29, 2023 Tavon Zarco MD Other Provider Active Start: [facility] 2023 End: October 29, 2023 Jorge Lopez MD Other Provider Active Start: October 27, 2023 End: October 29, 2023 Sanjana Cortes MD Other Provider Active Start: October 27, 2023 End: October 29, 2023 Michel Fuchs DO Other Provider Active Start: October 27, 2023 End: October 29, 2023 Emil Magana MD Other Provider Active Start: [facility] 2023 End: October 29, 2023 Tong Varma MD Other Provider Active Start: [facility] 2023 End: October 29, 2023 BILLY Díaz Other Provider Active St art: October 27, 2023 End: October 29, 2023 Avelina Houser APRN Other Provider Active Star t: October 27, 2023 End: October 29, 2023 aRjat Silvestre MD Other Provider Active Start: October 27, 2023 End: October 29, 2023 John Krishna MD Other Provider Active Start: [facility] 2023 End: October 29, 2023 Tod Curry MD Other Provider Active Start: [facility] 2023 End: October 29, 2023 Maximus Arce MD Other Provider Active Star t: October 27, 2023 End: October 29, 2023 Tha Otto MD Other Provider Active Start: [facility] 2023 End: October 29, 2023 Swathi Jones , Other Provider Active Start: [facility] 2023 End: October 29, 2023 Ricky Guzman , Other Provider Active Start : October 27, 2023 End: October 29, 2023 Juan C Santiago , Other Provider Active Sta rt: October 27, 2023 End: October 29, 2023 Gina Franco APRN Other Provider Active Start: October 27, 2023 End: October 29, 2023 Vito Azar DO Other Provider Active Start: October 27, [...] Janessa Negrete MD Other Provider Active Start: [facility] 2023 End: October 29, 2023 Avi Khan MD Other Provider Active S tart: October 27, 2023 End: October 29, 2023 Los Constantino , Other Provider Active Star t: October 27, 2023 End: October 29, 2023 Keaton Reyes DO Other Provider Active Start: October 27, 2023 End: October 29, 2023 Adam Curry MD Other Provider Active Start: October 27, 2023 End: October 29, 2023 Alisa Bauer RN Other Provider Active Start: [facility] 2023 End: October 29, 2023 Team Status: [...] Kraft , CORNELL Other Provider Active Start: [facility] 2023 Alyce Mcintosh , CORNELL Other Provider Active Star t: October 28, 2023 Berkley Giron , CORNELL Other Provider Active Start : October 28, 2023 Jennifer Hatfield RN Other Provider Active Start: [facility] 2023 Perla Bunn RN Other Provider Active Start: [facility] 2023 Lena Tejeda MD Other Provider Active Start: October 28, 2023 Virgilio Ley MD Other Provider Active Start: [facility] 2023 Kathy Loya APRN Other Provider Active [...] Marcell Green MD Other Provider Active Start: [facility] 2023 Kathe Lentz APRN Other Provider Active Start: October 28, 2023 Mary Bowen MD Other Provider Active Start: October 28, 2023 Tavon Zarco MD Other Provider Active Start: [facility] 2023 Jorge Lopez MD Other Provider Active Start: October 28, 2023 Sanjana Cortes MD Other Provider Active Start: October 28, 2023 Michel Fuchs DO Other Provider Active Start: October 28, 2023 Emil Magana MD Other Provider Active Start: [facility] 2023 Tong Varma MD Other Provider Active Start: [facility] 2023 Rhiannon Feldman , VASCULAR SURGERY PHYSICIAN-C Other Provider Active St art: October 28, 2023 Avelina Houser APRN Other Provider Active Star t: October 28, 2023 Rajat Silvestre MD Other Provider Active Start: October 28, 2023 John Krishna MD Other Provider Active Start: [facility] 2023 Tod Curry MD Other Provider Active Start: [facility] 2023 Maximus Arec MD Other Provider Active Star t: October 28, 2023 Tha Otto MD Other Provider Active Start: [facility] 2023 Swathi Jones , Other Provider Active Start: [facility] 2023 Ricky Guzman , Other Provider Active Start : October 28, 2023 Juan C Santiago , Other Provider Active Sta rt: October 28, 2023 Gina Franco APRN Other Provider Active Start: October 28, 2023 Viot Azar DO Other Provider Active Start: October 28, 2023 Khloe Silva MD Other Provider Active Sta rt: October 28, 2023 Sabi Ruff APRN Other Provider Active Start : October 28, 2023 Adilene Barba APRN Other Provider Active St art: October 28, 2023 Janessa Negrete MD Other Provider Active Start: [facility] 2023 Avi Khan MD Other Provider Active S tart: October 28, 2023 Los Constantino , Other Provider Active Star t: October 28, 2023 Keaton Reyes DO Other Provider Active Start: October 28, 2023 Adam Curry MD Other Provider Active Start: October 28, 2023 Alisa Bauer RN Other Provider Active Start: [facility] 2023 Goals (unrecognized section and content) Goals [...] BE BASED ON THE PRIMARY CLINICAL RECORDS. [employer] [facility]. provides no warranty or guarantee of the accuracy or completeness of information in this document.
[2023-12-22 07:05] VITALS: BMI 29.7
[2023-12-22 07:22] VITALS: BP 105/76; PULSE 99; TEMP 36.4; O2SAT 97
[2023-12-22] MEDS: LACTATED RINGER'S SOLUTION 1,000 ML 50 ML IV (07:25)
[2023-12-22] MEDS: BUPIVACAINE HCL 0.5% PF 50 MG/10 ML VIAL INJ (08:32)
[2023-12-22] MEDS: BACITRACIN OINTMENT 28.4 GM TUBE 1 APPLIC TOPICAL (08:35)
[2023-12-22 08:41] VITALS: BP 103/76; PULSE 75; O2SAT 97
--- NOTE | 2023-12-22 08:54 | PC.NURSE ---
No active drainage on left ear wound
[2023-12-22 08:55] VITALS: BP 120/88; PULSE 73; O2SAT 98
--- NOTE | 2023-12-22 09:02 | PC.NURSE ---
No left ear drainage noted
== END 2023-12-22 09:14 | disposition home or self-care (01) ==
PROVIDERS: PCP Family Medicine; Visit Provider Surgery
PROC: (CPT 300; principal; 2023-12-22 07:55)
PROC: (CPT 300; 2023-12-22 07:55)
DX: Z12.11 Encounter for screening for malignant neoplasm of colon (principal); L98.8 Other specified disorders of the skin and subcutaneous tissue; D64.9 Anemia, unspecified; M54.16 Radiculopathy, lumbar region; Z79.82 Long term (current) use of aspirin; Z68.31 Body mass index [BMI] 31.0-31.9, adult; J45.909 Unspecified asthma, uncomplicated; E03.9 Hypothyroidism, unspecified; F32.A Depression, unspecified
CPT/HCPCS: 00300; 00813; 11441; 43235; G0121; 88305; J0665; J2250; J2704

== ENCOUNTER 2024-01-03 07:06 | Outpatient (OUT) | payer OTHER, SELFPAY ==
--- OUTSIDE RECORDS SUMMARY | 2024-01-03 07:09 | XMS_ITS | CCD ---
Author Organization [facility] Care Team Providers Care Zoning Technician Name Role Phone Trino Cadet Unavailable SHARON, [...] Unavailable MD Donna Herrera Primary Care Provider [phone] MD Trino Cadet Attending Provider [phone] Donna Herrera MD Primary Care Provider [phone] DARRELL OLSEN Admitting Unavailable DARRELL OLSEN Attending Unavailable HOY DONNA M Primary Care Unavailable JIM COPELAND Consulting Unavailable AMEENAY DONNA M Primary Care Unavailable KAREN TIMIA Referring Unavailable HOY, DONNA M Primary Care Unavailable DARRELL OLSEN Attending Unavailable DARRELL OLSEN Referring Unavailable HOY DONNA M Primary Care Unavailable MARVA AGUAYO Referring Unavailable HOY, DONNA M Primary Care Unavailable MEETA CHARLES Referring Unavailable HOY, DONNA M Primary Care Unavailable DARRELL OLSEN Referring Unavailable SHARON DONNA M Primary Care Unavailable MD Donna Herrera Primary Care Provider [phone] MD Qasim Mancilla Admit Provider MD Qasim Mancilla Attending Provider [phone] CORNELL Quinones Other Provider Unavailable CORNELL Givens Other Provider Unavailable CORNELL Kraft Other Provider Unavailable CORNELL Mcintosh Other Provider Unavailable CORNELL Giron Other Provider Unavailable CORNELL Hatfield Other Provider Unavailable CORNELL Bunn Other Provider Unavailable MD Lena Tejeda Other Provider MD Virgilio Ley Other Provider Unavailable Dials, MUSIC MINISTRIES DIRECTOR Kathy M Other Provider DO Michelle Echols Other Provider MD Oswaldo Washington Other Provider DO Bhavik Hull Other Provider MD Prosper Fry Other Provider MD Evelyn Medina Other Provider MD Marcell Green Other Provider Unavailable Mary Carmen MUSIC MINISTRIES DIRECTORFreida Archuleta Other Provider [phone] MD Mary Bowen Other Provider MD Tavon Zarco Other Provider MD Jorge Lopez Other Provider MD Sanjana Cortes Other Provider DO Michel Fuchs Other Provider MD Emil Magana Other Provider MD Tong Varma Other Provider Gaston GRAPHIC EDITOR-C Rhiannon Geronimo Other Provider Mik, MUSIC MINISTRIES DIRECTORFreida Blanchard Other Provider Unavailable MD Rajat Silvestre Other Provider MD John Krishna Other Provider MD Tod Curry Other Provider MD Maximus Arce Other Provider Unavailable MD Tha Otto Other Provider DO Swathi Jones Other Provider DO Ricky Guzman Other Provider DO Juan C Santiago Other Provider [phone] PIPO Franco Other Provider DO Vito Azar Other Provider [phone] MD Khloe Silva Other Provider PIPO Ruff Other Provider [phone] PIPO Barba Other Provider MD Janessa Negrete Other Provider MD Avi Khan Other Provider DO Dougie Los T Other Provider DO Eric Yajered Other Provider MD Adam Curry P Other Provider CORNELL Bauer Other Provider Unavailable Hoy, Donna Primary Care Physician DARRELL OLSEN Attending Unavailable HOY, DONNA M Referring Unavailable HOY, DONNA M Primary Care Unavailable HOY, DONNA M Referring Unavailable HOY, DONNA M Primary Care Unavailable TIM, CHARLES Attending Unavailable NIENBERG, XU S Referring Unavailable HOY, DONNA M Primary Care Unavailable TIM, CHARLES Attending Unavailable HOY, DONNA M Referring Unavailable HOY, DONNA M Primary Care Unavailable TIM, CHARLES Attending Unavailable TIM, CHARLES Referring Unavailable HOY, DONNA M Primary Care Unavailable FITZ CARRASQUILLO Attending Unavailable HOY, DONNA M Referring Unavailable HOY, DONNA M Primary Care Unavailable NIENBERG, XU S Attending Unavailable NIENBERG, XU S Referring Unavailable HOY, DONNA M Primary Care Unavailable NIENBERG, XU S Attending Unavailable HOY, DONNA M Referring Unavailable HOY, DONNA M Primary Care Unavailable TIM, CHARLES Referring Unavailable HOY, DONNA M Primary Care Unavailable Qasim Mancilla Admitting Unavaila Qasim Ochoa Attending UnavailYasmeen Melendez Consulting Unavailable Donna Herrera Primary Care Unavailable Flores Givens Consulting Unavailable Ariela Kraft Consulting Unavailable Alyce Mcintosh Consulting Unavailable Berkley Giron Consulting Unavailable Jennifer Hatfield Consulting Unavailable Perla Bunn Consulting Unavailable Lena Tejeda Consulting Unavailable Virgilio Ley Consulting Unavailable Kathy Loya Consulting Unavailable Michelle [...] Avelina Houser Consulting Unavailable Rajat Silvestre Consulting Unavailab John Doll Consulting Unavailable Tod Curry Consulting Unavailable Maximus Arce Consulting Unavailable Tha Otto Consulting Unavailable Swathi Jones Consulting Unavailable Ricky Guzman Consulting Unavailable Juan C Santiago Consulting Unavailable ObGina justice Consulting Unavailable Vito Azar Consulting Unavailable DaromarKhloe Consulting Unavailable Sabi Ruff Consulting Unavailable Adilene Barba Consulting Unavailable AlaJanessa loo Consulting Unavailable Avi Khan Consulting Unavailable Los Constantino Consulting Unavailable Keaton Reyes Consulting Unavailable Adam Curry Consulting Unavailable Alisa Bauer Consulting Unavailable Michel Robbins Attending Unavailable Michel Robbins Admitting Unavailable Donna Herrera Primary Care Unavailable Trino Cadet Attending Unavailable Trino Cadet Admitting Unavailable Donna Herrera Primary Care Unavailable MD Michel Robbins Attending Provider Michel ROBBINS Attending Unavailable Michel ROBBINS Attending Unavailable Donna Herrera Referring Unavailable Michel ROBBINS Attending Unavailable Allergies Allergy Classification Reported Allergen(s) Allergy Type Date of Onset Reaction(s) Facility (1 source) No Known Medication Allergies; Translations: [No Known Medication Allergies] Propensity to adverse reactions (disorder) [facility] Repository Medications Current Medications Medication Drug Class(es) Dates Sig (Normalized) Sig (Original) [id number] 200 actuat albuterol 0.09 mg/actuat metered dose inhaler (6 sources) beta2-Adrenergic Agonist Start: 10-29-2023 take 1 [...] aspirin 81 mg delayed release oral tablet (17 sources) Platelet Aggregation Inhibitor, Nonsteroidal Anti-inflammatory Drug [...] formoterol fumarate 0.0045 mg/actuat metered dose inhaler (15 sources) Corticosteroid, beta2-Adrenergic Agonist Start: 10-29-2023 take [...] 04/19/2019 Active take 2 puff(s) by mo ut twice daily Symbicort 160-4.5 MCG/ACT INHALE 2 PUFFS BY MOUTH TWICE DAILY Inhalation for 30 Active cetirizine hydrochloride 10 mg oral tablet (15 sources) Histamine-1 Receptor Antagonist Start: 05-22-2020 End: 10-29-2023 take 1 tablet by mouth once daily as needed cetirizine 10 mg Tab 10 mg = 1 tab(s), Oral, Daily, PRN Allergy symptoms, Refills(s) 0 Start Date: 10/14/23 Status: Ordered cetirizine (ZyrT ) 10 MG chewable tablet Chew 1 tablet (10 mg total) and swallow in the morning. 0 Active take 2 tablets by [facility] every twenty-four hours Cetirizine HCl 10 MG 2 tablets Orally On ce a day Active cyclobenzaprine hydrochloride 5 mg oral tablet (7 sources) Muscle Relaxant Start: 10-29-2023 take 5 [...] 2023 3:03pm dexamethasone 2 mg oral tablet (4 sources) Corticosteroid Start: 10-29-2023 take 2 mg [...] 2023 9:45am diazePAM 2 mg oral tablet (17 sources) Benzodiazepine Start: 10-27-2023 take 2 mg [...] 2020 10:18am take 1 tablet by eleni every six hours as needed for anxiety diazePAM (VALIUM) 2 mg tablet Take 1 tablet (2 mg total) by mouth every 6 (six) hours as needed for anxiety. 0 Active diazePAM 2.5 MG as directed Rectal Active diclofenac sodium 75 mg delayed release oral tablet (16 sources) Nonsteroidal Anti-inflammatory Drug Start: 10-14-2023 take [...] 2020 10:18am famotidine 20 mg oral tablet (4 sources) Histamine-2 Receptor Antagonist Start: 10-27-2023 End: 10-29-2023 take 20 mg by mouth twice daily Famotidine Active 20 MG PO Twice daily 60 October 29, 2023 12:00am FLUoxetine 20 mg oral capsule (17 sources) Serotonin Reuptake Inhibitor Start: 10-29-2023 take 40 mg by mouth once daily in the morning Fluoxetine Active 40 MG PO Every morning 60 October 29, 2023 12:00am Start: 05-22-2020 End: 10-29-2023 take 1 capsule by mouth once daily FLUoxetine 40 mg Cap 40 mg = 1 cap(s), Oral, Daily, Refills(s) 0 Start Date: 10/14/23 Status: Ordered gabapentin 800 mg oral tablet (14 sources) Anti-epileptic Agent Start: 10-27-2023 take 800 [...] Active liothyronine sodium 0.005 mg oral tablet (6 sources) l-Triiodothyronine Start: 11-16-19 take 2 tablets by mouth once daily liothyronine 5 mcg Tab 10 mcg = 2 tab(s), Oral, Daily, Refills(s) 0 Start Date: 11/16/23 Status: Ordered Start: 10-27-2023 End: 10-29-2023 take 1 tablet by mouth once daily Liothyronine (Cytomel) 5 mcg Tablet Active 5 MCG PO Daily 30 October 29, 2023 12:00am loratadine 10 mg oral tablet (2 sources) Start: 10-29-2023 take 10 mg by mouth once daily Loratadine Active 10 MG PO Daily 0 October 29, 2023 12:00am Multi Vitamins oral tablet (2 sources) Start: 10-14-2023 take 1 tablet by mouth once daily Multi Vitamins oral tablet 1 tab(s), Oral, Daily, Refill(s) 0 Start Date: 10/14/23 Status: Ordered multivitamin capsule (6 sources) take 1 capsule by mouth in the morning multivitamin capsule Take 1 capsule by mouth in the morning. 0 Active Multivitamin preparation (3 sources) Start: 05-22-2020 take 1 tablet by mouth once daily Multivitamin Active 1 TAB PO every day at noon May 22, 2020 12:00am Naloxone (2 sources) Opioid Antagonist Start: 10-27-2023 Naloxone Act kyle 1 SPRAY INTRANASAL Q3M October 27, 2023 12:00am oxyCODONE hydrochloride 5 mg oral capsule (5 sources) Opioid Agonist Start: 10-27-2023 take 5 mg by mouth every four hours Oxycodone Active 5 MG PO Every 4 hours October 27, 2023 12:00am Start: 05-31-2020 End: 10-27-2023 take 5-10 mg by mouth every six hours Oxycodone Discontinued 5 - 10 MG PO Q6H 60 8 May 31, 2020 October 27, 2023 3:03pm Symbicort 160/4.5 inhalation aerosol with adapter (2 sources) Start: 10-14-2023 take 2 puff(s) by inhalation twice daily Symbicort 160/4.5 inhalation aerosol with adapter 2 puff(s), Inhalation, BID, Refill(s) 0 Start Date: 10/14/23 Status: Ordered Ventolin HFA 90 mcg/inh Aerosol-Adpt (2 sources) Start: 10-14-2023 take 2 puff(s) by inhalation [...] sulfate 15 mg extended release oral tablet (3 sources) Opioid Agonist Start: 05-31-2020 End: 10-27-2023 take 1 tablet by mouth every twelve hours Morphine (Ms Contin) 15 mg tablet extended release Discontinued 15 MG PO Q12H 20 May 31, 2020 October 27, 2023 2:56pm take w/enough water to swallow whole; do not crush/dissolve/chew /cut/break Prednisone (3 sources) Start: 05-31-2020 End: 10-27-2023 Prednisone Discontinued 1 dose pk PO per package directions May 31, 2020 12:00am October 27, 2023 2:57pm take 4 tabs for 3 days then take 3 tabs for 3 days then take 2 tabs for 3 days then take 1 tab for 3 days Start: 05-31-2020 Prednisone Act kyle 1 dose pk PO per package directions May 31, 2020 12:00am take 4 tabs for 3 days then take 3 tabs for 3 days then take 2 tabs for 3 days then take 1 tab for 3 days Problems Active Problems Problem Classification Problem Date Documented Date Episodic/Chronic Administrative/socia l admission (5 sources) Other reduced mobility; Translations: [Impaired mobility and activities of daily living] Onset: 10-27-2023 10-28-2023 Episodic Alcohol-related disorders (2 sources) Alcoholic fatty liver 10-14-2023 Chronic Anxiety disorders (5 sources) Mixed anxiety and depressive disorder; Translations: [Other specified anxiety disorders] Onset: 10-27-2023 10-29-2023 Chronic Asthma (5 sources) Asthma; Translations: [Unspecified asthma, uncomplicated] Onset: 10-27-2023 10-29-2023 Chronic Deficiency and other anemia (4 sources) Anemia; Translations: [Anemia, unspecified] Onset: 11-16-2023 Episodic Disorders of lipid metabolism (2 sources) Dyslipidemia 10-14-2023 Chronic Essential hypertension (2 sources) Hypertensive disorder 10-14-2023 Chronic Fracture of lower limb (8 sources) Closed fracture of lateral malleolus; Translations: [Nondisplaced fracture of lateral malleolus of left fibula, initial encounter for closed fracture] Episodic Neoplasms of unspecified nature or uncertain behavior (4 sources) Neoplasm of uncertain behavior of skin; [...] as traumatic] Episodic Other connective tissue disease (6 sources) History of lumbar fusion; Translations: [Arthrodesis status] 09-02-2023 Episodic Other connective tissue disease (8 sources) Arthrodesis status; Translations: [Arthrodesis status] Onset: 09-02-2023 Episodic Other nervous system disorders (4 sources) Chronic pain; Translations: [Other chronic pain] Chronic Other nervous system disorders (3 sources) Other chronic pain; Translations: [Other chronic pain] Onset: 08-05-2021 Resolved: 08-05-2021 Chronic Other nervous system disorders (4 sources) Other acute postprocedural pain; Translations: [Other acute postoperative pain] Onset: 10-25-2023 10-29-2023 Episodic Other nervous system disorders (2 sources) Postoperative pain ; Translations: [Other acute postprocedural pain] 10-28-2023 Episodic Other non-traumatic joint disorders (4 sources) Shoulder pain; Translations: [Pain in left shoulder] Episodic Other non-traumatic joint disorders (4 sources) Acute ankle pain; Translations: [Pain in left ankle and joints of left foot] Episodic Other nutritional; endocrine; and metabolic disorders (2 sources) Body mass index 30+ - obesity 11-16-2023 Chronic Other nutritional; endocrine; and metabolic disorders (2 sources) Obesity 11-16-2023 Chronic Other screening for suspected conditions (not mental disorders or infectious disease) (1 source) Encounter for screening for malignant neoplasm of prostate; Translations: [ENC SCREEN MALIG NEOPLASM PROSTATE] Onset: 09-08-2022 Episodic Other skin disorders (2 sources) Hyperhidrosis 10-14-2023 Episodic Other upper respiratory disease (2 sources) Allergic rhinitis 10-14-2023 Chronic Residual codes; unclassified (4 sources) History of arthroscopic procedure on shoulder; Translations: [Other specified postprocedural states] Episodic Residual codes; unclassified (2 sources) Other specified postprocedural states; Translations: [Other specified postprocedural states] Onset: 12-02-2023 Episodic Residual codes; unclassified (1 source) Other specified health status; Translations: [Other specified health status] Onset: 10-27-2023 Episodic Spondylosis; intervertebral disc disorders; other back problems (19 sources) Degeneration of lumbar intervertebral disc; Translations: [Other intervertebral disc degeneration, lumbar region] Onset: 08-04-2018 Resolved: 08-05-2021 Chronic Sprains and strains (4 sources) Glenoid labrum tear; Translations: [Superior glenoid labrum lesion of left shoulder, initial encounter] Episodic Thyroid disorders (5 sources) Hypothyroidism; Translations: [Hypothyroidism, unspecified] Onset: 10-27-2023 [...] unspecified] Onset: 08-18-2023 Unclassified (1 source) Spinal stenosis, lumbar region with neurogenic claudication; Translations: [Spinal stenosis, lumbar region with neurogenic claudication] Onset: 05-24-2023 Past or Other Problems Problem Classification Problem Date Documented Da te Episodic/Chronic Nausea and vomiting (1 source) Nausea with vomiting, unspecified; Translations: [NAUSEA WITH VOMITING UNSPECIFIED] Onset: 02-05-2022 Episodic Other aftercare (1 source) half-way (current) use of aspirin; Translations: [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] Onset: 02-05-2022 Episodic Other aftercare (1 source) 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; Translations: [OTH USP CURRENT DRUG THERAPY] Onset: 02-05-2022 Episodic Other gastrointestinal disorders (1 source) Diarrhea, unspecified; Translations: [DIARRHEA UNSPECIFIED] Onset: 02-05-2022 Episodic Other non-traumatic joint disorders (6 sources) Hip pain; Translations: [Pain in unspecified hip] Onset: 02-20-2021 03-12-2022 Episodic Residual codes; unclassified (2 sources) Chronic pain Onset: 08-03-2023 10-14-2023 Episodic Spondylosis; [...] Test Name Value Interpretation Reference Range Facility Ambulatory Visit Summaryon 0 12-29-2023 Ambulatory Visit Summary CELESTINO ZIEGLER Vlad :1970 Visit Date:12/29/2023 Ambulatory Visit Instructions Your Care Team Attending Physician - ROSENDO OROURKE, Michel Lee Primary Care Physician - Donna Herrera MD This Is Your Medications List albuterol (Ventolin HFA 90 mcg/inh Aerosol-Adpt) aspirin (aspirin 81 mg Oral EC Tab) budesonide-formoterol (Symbicort 160/4.5 inhalation aerosol with adapter) cetirizine [...] - laser assisted in situ keratomileusis. Medications What How Much When Instructions Unchanged albuterol (Ventolin HFA 90 mcg/ inh Aerosol-Adpt) 2 Puffs Inhalation Every 4 hours as needed for Shortness of breath or wheezing Unchanged aspirin (aspirin 81 mg Oral EC Tab) 1 Tablets By Mouth Every day Unchanged budesonide-formoterol (Symbicort 160/ 4.5 inhalation aerosol with adapter) 2 Puffs Inhalation 2 times a day Unchanged cetirizine (cetirizine 10 mg Tab) 1 Tablets By Mouth Every day as needed for Allergy symptoms Unchanged diazepam (diazepam 2 mg Tab) 1 Tablets By Mouth Every day as needed for as needed for anxiety Unchanged diclofenac (diclofenac sodium 75 mg Oral EC Tab) 1 Tablets By Mouth 2 times a day Unchanged fluoxetine (FLUoxetine 40 mg Cap) 1 Capsules By Mouth Every day Unchanged gabapentin (gabapentin 600 mg Tab) 1 Tablets By Mouth 3 times a day Unchanged liothyronine (liothyronine 5 mcg Tab) 2 Tablets By Mouth Every day Unchanged multivitamin (Multi Vitamins oral tablet) 1 Tablets By Mouth Every day Allergies No Known Allergies No Known Medication Allergies Problems Ongoing - Any problem that you are currently receiving treatment for. 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 Please share your experience with us by completing your survey. We appreciate your feedback and thank you for choosing us for your care. Normal [facility] General Surgery Office/Clini c Noteon 12-29-2023 General Surgery Office/Clinic Note Chief Complaint post operative follow up HPI Staff 7 day post operative follow up post EGD and colonoscopy along with excisional biopsy left ear lesion. Denies soreness, bleeding or drainage to ear. Sutures intact. History of Present Illness s/p EGD and colonoscopy due to mild anemia; wnl; denies abd pain or change in bms now; also excision of painful lesion left ear; pathology with inflammation and necrosis; no suspicious cells; doing well, no drainage or pain currently. Review of Systems ROS - Provider Constitutional: no fever, no [...] and are negative or noncontributory. Physical Exam skin: incision healing well; no erythema or drainage, no ecchymoses. Assessment/Plan 1. Anemia (D64.9: Anemia, unspecified) normal EGD and colonoscopy; recommend follow up h/h per family physician; screening colonoscopy in 10 years; call with problems/questions. 2. 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 Never Smokeless Tobacco Use:., 11/16/2023 Family History Heart disease: Father. Hypertension: Father. Immunizations Vaccine Date Status influenza virus vaccine, inactivated 05/19/2023 Recorded SARS-CoV-2 (COVID-19) [id number] 04/28/2022 Recorded SARS-CoV-2 (COVID-19) mRNA BNT-162b2 vax 08/04/2021 Recorded SARS-CoV-2 (COVID-19) mRNA BNT-162b2 vax 11/16/2020 Recorded SARS-CoV-2 (COVID-19) mRNA BNT-162b2 vax 10/26/2020 Recorded Normal [facility] Comment on above: Result Comment: Elec tronically Signed By: ROSENDO OROURKE, Michel Sue\Date and Time Signed: 12/29/23 16:49 EDT Reminderson 12-29-2023 Reminders - From: Terra Smith LPN To: N - Clinical; Sent: 12/29/2023 16:30:19 EDT Show up: 11/21/2033 07:00:00 EDT Subject: colonoscopy recall Due Date/Time: 12/21/2033 07:00:00 EDT Reminder/Recall Patient due for screening colonoscopy 12/21/2033. Normal [facility] Outside Colonoscopyon 2023 Outside Colonoscopy [id number]#1.00TIF F Normal [facility] Pathology Noteon 12-24-2023 Pathology Note [id number]#1.00TIFF Normal [facility] Roque 12-22-2023 L Specimen: [id number] Received: 12/22/23 Status: SHELLEY Sousasun Num: [id number] Spec Type: Surgical Subm Dr: Michel Robbins MD FACS Tissues: A Skin-Other than Cyst, tag, debridement or plastic repair (LT EAR LESION) Procedures: HE, Gross/Micro L4 Age/ Patient Sex Location Account Attending Physician Celestino Ziegler 53/M LABELL [id number] Michel Robbins MD FACS SPEC NUM: [id number] RECD: 12/22/23 STATUS: SHELLEY CADENA NUM: [id number] LONNIE: 12/22/[address]: Michel Robbins MD FACS ENTERED: 12/22/[address] [facility] [address]: Aurora Simons SPEC TYPE: Surgical DEPT: AMADO GIORDANO ORDERED: HE, Gross/Micro L4 ORDERED: HE, Gross/Micro L4 Pathological Diagnosis Lesion, left ear, biopsy: Focal dermal inflammation and necrosis. Gross Description Received in formalin, labeled with the patient's name, date of and left ear lesion is a 0.6 x 0.3 x 0.2 cm hodges fragment of skin. The surface contains a 0.1 x 0.1 cm scaly lesion. The specimen is inked black along its resection margin, bisected and entirely submitted in A1. Clinical history: EGD-normal, colonoscopy-normal lesion left ear CPT Codes 62513 Specimen: [id number] Received: 12/22/23 Status: SHELLEY Cadena Num: [id number] Spec Type: Surgical Subm Dr: Michel Robbins MD FACS Tissues: A Skin-Other than Cyst, tag, debridement or plastic repair (LT EAR LESION) Procedures: Alistair WHITESIDE/Logan L4 Patient: Celestino Ziegler [id number] (Continued) Signed (signature on file) Jameson Garcia MD 12/23/23 1400 [facility] Insurance Correspondenceon 0 12-03-2023 Insurance Correspondence [id number]#[id number] [facility] Consent for Procedure/Surger yon 11-17-2023 Consent for Procedure/Surgery [id number]#1.00TIF F [facility] Facesheeton 11-17-2023 Facesheet [id number]#1.00TIFF [facility] Ambulatory Visit Summaryon 0 11-16-2023 Ambulatory Visit Summary CELESTINO ZIEGLER :1970 Visit Date:11/16/2023 Ambulatory Visit Instructions Your Care Team Attending Physician - ROSENDO OROURKE, Michel Lee Primary Care Physician - Sharon OROURKE, Donna Referring Physician - Sharon OROURKE, Donna This Is Your Medications List Contact prescribing physician if questions or concerns albuterol (Ventolin HFA 90 mcg/inh Aerosol-Adpt) aspirin (aspirin 81 mg Oral EC Tab) budesonide-formoterol (Symbicort 160/4.5 inhalation aerosol with adapter) cetirizine [...] prescribing physician if questions or concerns Unchanged budesonide-formoterol (Symbicort 160/ 4.5 inhalation aerosol with adapter) [...] for choosing us for your care. Normal [facility] Alanine aminotransferase [En zymatic activity/volume] in Serum or PlasmaOrdered By: Qasim Mancilla on 10-28-2023 ALT [Catalytic activity/Vol] 7 U/L 7-52 [facility] Albumin [Mass/volume] in Ser um or Plasma by Bromocresol green (BCG) dye binding methoOrdered By: Qasim Mancilla on 10-28-2023 Albumin BCG dye [Mass/Vol] 3.9 g/dL 3.5-5.7 [facility] Alkaline phosphatase [Enzyma tic activity/volume] in Serum or PlasmaOrdered By: Qasim Mancilla on 10-28-2023 ALP [Catalytic activity/Vol] 57 U/L 34-104 [place] [facility] Aspartate aminotransferase [ Enzymatic activity/volume] in Serum or PlasmaOrdered By: Qasim Mancilla on 10-28-2023 AST [Catalytic activity/Vol] 7 U/L 13-39 [facility] Basophils Auto (Bld) [#/Vol] Ordered By: Qasim Mancilla on 10-28-2023 Basophils (Bld) [#/Vol] 0.0 10*3/uL 0.0-0.2 [facility] Basophils/100 WBC Auto (Bld) Ordered By: Qasim Mancilla on 10-28-2023 Basophils/100 WBC (Bld) 0.3 % . [facility] Bilirubin.total [Mass/volume ] in Serum or PlasmaOrdered By: Qasim Mancilla on 10-28-2023 Bilirubin [Mass/Vol] 0.5 mg/dL 0.3-1.0 [facility] Calcium [Mass/volume] in Ser um or PlasmaOrdered By: Qasim Mancilla on 10-28-2023 Calcium [Mass/Vol] 8.8 mg/dL 8.6-10.3 [facility] Carbon dioxide, total [Moles /volume] in Serum or PlasmaOrdered By: Qasim Mancilla on 10-28-2023 CO2 [Moles/Vol] 27.8 mmol/L 21.0-31.0 [facility] Chloride [Moles/volume] in S felicita or PlasmaOrdered By: Qasim Mancilla on 10-28-2023 Chloride [Moles/Vol] 106 mmol/L 98-107 [facility] Complete Blood Count Auto Di ffon 10-28-2023 Basophils (Bld) [#/Vol] 0.0 10*3/uL Normal 0.0-0.2 [facility] Comment on above: Result Comment: PERF ORMED BY: [facility] [address] [place] [address] PATHOLOGIST [employer]OD[employer] MACHINE HELPER MARK ARIAS M.D. Performed By: #### C VLADIMIR CMP, PAB #### [facility] [address] Basophils/100 WBC (Bld) 0.3 % Normal . [facility] Comment on above: Performed By: #### C BC, CMP, PAB #### [place] [address] Eosinophils (Bld) [#/Vol] 0.0 10*3/uL Normal 0.0-0.45 [facility] Comment on above: Performed By: #### C BC, CMP, PAB #### [address] Eosinophils/100 WBC (Bld) 0.4 % Normal . [facility] Comment on above: Performed By: #### C BC, CMP, PAB #### [address] Erythrocyte distribution width (RBC) [Ratio] 13.4 % Normal 12.0-14.8 [facility] Comment on above: Performed By: #### C BC CMP, PAB #### [address] Hematocrit (Bld) [Volume fraction] 38.3 % Low 38.8-50.0 [facility] Comment on above: Performed By: #### C BC, CMP, PAB #### [address] Hemoglobin (Bld) [Mass/Vol] 12.7 g/dL Low 13.0-17.0 [facility] Comment on above: Performed By: #### C BC CMP, PAB #### [address] Lymphocytes (Bld) [#/Vol] 2.1 10*3/uL Normal 1.00-4.8 [facility] Comment on above: Performed By: #### C BC, CMP, PAB #### [address] Lymphocytes/100 WBC (Bld) 28.7 % Normal . [facility] Comment on above: Performed By: #### C BC, CMP, PAB #### [address] MCH (RBC) [Entitic mass] 30.9 pg Normal 27.5-35.2 [facility] Comment on above: Performed By: #### C BC, CMP, PAB #### [facility] [address] MCV (RBC) [Entitic vol] 93.0 fL Normal 83.5-101 [facility] Comment on above: Performed By: #### C BC, CMP, PAB #### [facility] [address] Mean Corpuscular HGB Conc 33.3 g/dL Normal 32.5-35.6 [facility] Comment on above: Performed By: #### C BC, CMP, PAB #### [facility] [address] [place] [address] [place] Monocytes (Bld) [#/Vol] 0.7 10*3/uL Normal 0.0-0.8 [facility] Comment on above: Performed By: #### C BC, CMP, PAB #### [address] Monocytes/100 WBC (Bld) 9.6 % Normal . [facility] Comment on above: Performed By: #### C BC, CMP, PAB #### [facility] [address] [place] [address] [place] Neutrophils (Bld) [#/Vol] 4.5 10*3/uL Normal 1.8-7.7 [facility] Comment on above: Performed By: #### C BC, CMP, PAB #### [place] [address] [place] Neutrophils/100 WBC (Bld) 61.0 % Normal . [facility] Comment on above: Performed By: #### C BC, CMP, PAB #### [place] [address] [place] NRBC% 0.1 /100{WBC} Normal 0-0.5 [facility] Comment on above: Performed By: #### C BC, CMP, PAB #### [address] Platelet mean volume (Bld) [Entitic vol] 8.7 fL Normal 6.6-10.1 [facility] Comment on above: Performed By: #### C BC, CMP, PAB #### [address] Platelets (Bld) [#/Vol] 227 10*3/uL Normal 150-450 [facility] Comment on above: Performed By: #### C BC, CMP, PAB #### [address] RBC (Bld) [#/Vol] 4.12 10*6/uL Normal 3.90-5.60 [facility] Comment on above: Performed By: #### C BC, CMP, PAB #### [address] WBC (Bld) [#/Vol] 7.4 10*3/uL Normal 4.1-10.5 The [facility] Comment on above: Performed By: #### C BC, CMP, PAB #### [address] Comprehensive Metabolic Pane roque 10-28-2023 Albumin [Mass/Vol] 3.9 g/dL Normal 3.5-5.7 The [facility] Comment on above: Performed By: #### C BC, CMP, PAB #### [address] Albumin/Globulin [Mass ratio] 1.7 {ratio} Normal [facility] Comment on above: Performed By: #### C BC, CMP, PAB #### [address] ALP [Catalytic activity/Vol] 57 U/L Normal 34-104 [facility] Comment on above: Performed By: #### C BC, CMP, PAB #### [address] ALT [Catalytic activity/Vol] 7 U/L Normal 7-52 [facility] Comment on above: Performed By: #### C BC, CMP, PAB #### [address] Anion gap [Moles/Vol] 11.6 mmol/L Normal 6.0-15.0 [facility] Comment on above: Performed By: #### C BC, CMP, PAB #### [facility] [address] [place] [address] [place] AST [Catalytic activity/Vol] 7 U/L Low 13-39 [facility] Comment on above: Performed By: #### C BC, CMP, PAB #### [facility] [address] [place] [address] [place] Bilirubin [Mass/Vol] 0.5 mg/dL Normal 0.3-1.0 [facility] Comment on above: Performed By: #### C BC, CMP, PAB #### [facility] [address] [place] [address] [place] Calcium [Mass/Vol] 8.8 mg/dL Normal 8.6-10.3 The [facility] Comment on above: Performed By: #### C BC, CMP, PAB #### [facility] [address] [place] [address] [place] Chloride [Moles/Vol] 106 mmol/L Normal 98-107 [facility] Comment on above: Performed By: #### C BC, CMP, PAB #### [facility] [address] [place] [address] [place] CO2 [Moles/Vol] 27.8 mmol/L Normal 21.0-31.0 [facility] Comment on above: Performed By: #### C BC, CMP, PAB #### [facility] [address] [place] [address] [place] Creatinine [Mass/Vol] 0.89 mg/dL Normal 0.70-1.30 [facility] Comment on above: Performed By: #### C BC, CMP, PAB #### [facility] [address] [place] [id number] [place] Creatinine Clr Calc Pharmacy 103.39 Normal [facility] Comment on above: Performed By: #### C BC, CMP, PAB #### [facility] [address] [place] [address] [place] GFR/1.73 sq M.predicted MDRD (S/P/Bld) [Vol rate/Area] mL/min/{1.73_m2} Normal [facility] Comment on above: Performed By: #### C BC, CMP, PAB #### [facility] [address] Globulin (S) [Mass/Vol] 2.3 g/dL Normal [facility] Comment on above: Performed By: #### C BC, CMP, PAB #### [facility] [address] [place] [address] [place] Glucose [Mass/Vol] 109 mg/dL High 70-100 The [facility] Comment on above: Result Comment: [facility] Glucose Reference Range is dependent on time and content of last meal. Glucose of more than 200 mg/dL in a nonstressed, ambulatory subject supports the diagnosis of Diabetes Mellitus. ADA recommended reference range Performed By: #### C BC, CMP, PAB #### [address] Potassium [Moles/Vol] 4.4 mmol/L Normal 3.5-5.1 [facility] Comment on above: Performed By: #### C BC, CMP, PAB #### [place] [address] [place] Protein [Mass/Vol] 6.2 g/dL Low 6.4-8.9 The [facility] Comment on above: Performed By: #### C BC, CMP, PAB #### [place] [address] [place] Sodium [Moles/Vol] 141 mmol/L Normal 136-145 The [facility] Comment on above: Performed By: #### C BC, CMP, PAB #### [facility] [address] [place] [id number] [place] Urea nitrogen [Mass/Vol] 26 mg/dL High 7-25 [facility] Comment on above: Performed By: #### C BC, CMP, PAB #### [facility] [address] [place] [address] [place] Creatinine [Mass/volume] in Serum or PlasmaOrdered By: Qasim Mancilla on 10-28-2023 Creatinine [Mass/Vol] 0.89 mg/dL 0.70-1.30 [facility] Eosinophils Auto (Bld) [#/Vo l]Ordered By: Qasim Mancilla on 10-28-2023 Eosinophils (Bld) [#/Vol] 0.0 10*3/uL 0.0-0.45 [facility] Eosinophils/100 WBC Auto (Bl d)Ordered By: Qasim Mancilla on 10-28-2023 Eosinophils/100 WBC (Bld) 0.4 % . [facility] Erythrocyte distribution wid th Auto (RBC) [Ratio]Ordered By: Qasim Mancilla on 10-28-2023 Erythrocyte distribution width (RBC) [Ratio] 13.4 % 12.0-14.8 [facility] Globulin Calc (S) [Mass/Vol] Ordered By: aQsim Mancilla on 10-28-2023 Globulin (S) [Mass/Vol] 2.3 g/dL [facility] Glucose [Mass/volume] in Ser um or PlasmaOrdered By: Qasim Mancilla on 10-28-2023 Glucose [Mass/Vol] 109 mg/dL 70-100 [facility] Comment on above: ADA recommended refe rence rangeRandom Glucose Reference Range is dependent on time and content of last meal. Glucose of more than 200 mg/dL in a nonstressed, ambulatory subject supports the diagnosis of Diabetes Mellitus. Hematocrit Auto (Bld) [Volum e fraction]Ordered By: Qasim Mancilla on 10-28-2023 Hematocrit (Bld) [Volume fraction] 38.3 % 38.8-50.0 [facility] Hemoglobin [Mass/volume] in BloodOrdered By: Qasim Mancilla on 10-28-2023 Hemoglobin (Bld) [Mass/Vol] 12.7 g/dL 13.0-17.0 [facility] Leukocytes [#/volume] correc deon for nucleated erythrocytes in Blood by Automated counOrdered By: Qasim Mancilla on 10-28-2023 WBC corrected for nucl RBC Auto (Bld) [#/Vol] 7.4 10*3/uL 4.1-10.5 [facility] Lymphocytes Auto (Bld) [#/Vo l]Ordered By: Qasim Mancilla on 10-28-2023 Lymphocytes (Bld) [#/Vol] 2.1 10*3/uL 1.00-4.8 [facility] Lymphocytes/100 WBC Auto (Bl d)Ordered By: Qasim Mancilla on 10-28-2023 Lymphocytes/100 WBC (Bld) 28.7 % . [facility] MCH Auto (RBC) [Entitic mass ]Ordered By: Qasim Mancilla on 10-28-2023 MCH (RBC) [Entitic mass] 30.9 pg 27.5-35.2 [facility] MCHC Auto (RBC) [Mass/Vol]Or dered By: Qasim Mancilla on 10-28-2023 MCHC (RBC) [Mass/Vol] 33.3 g/dL 32.5-35.6 [facility] MCV Auto (RBC) [Entitic vol] Ordered By: Qasim Mancilla on 10-28-2023 MCV (RBC) [Entitic vol] 93.0 fL 83.5-101 [facility] Monocytes Auto (Bld) [#/Vol] Ordered By: Qasim Mancilla on 10-28-2023 Monocytes (Bld) [#/Vol] 0.7 10*3/uL 0.0-0.8 [facility] Monocytes/100 WBC Auto (Bld) Ordered By: Qasim Mancilla on 10-28-2023 Monocytes/100 WBC (Bld) 9.6 % . [facility] Neutrophils Auto (Bld) [#/Vo l]Ordered By: Qasim Mancilla on 10-28-2023 Neutrophils (Bld) [#/Vol] 4.5 10*3/uL 1.8-7.7 [facility] Neutrophils/100 WBC Auto (Bl d)Ordered By: Qasim Mancilla on 10-28-2023 Neutrophils/100 WBC (Bld) 61.0 % . [facility] No Panel InformationOrdered By: Qasim Mancilla on 10-28-2023 Estimated GFR (CKD-EPI) > 60.0 mL/Min [facility] Creatinine Clearance (Chem 103.39 [facility] Nucleated erythrocytes [Pres ence] in Blood by Automated countOrdered By: Qasim Mancilla on 10-28-2023 Nucleated RBC Auto Ql (Bld) 0.1 /100{WBC} 0-0.5 [facility] Platelet mean volume Auto (B ld) [Entitic vol]Ordered By: Qasim Mancilla on 10-28-2023 Platelet mean volume (Bld) [Entitic vol] 8.7 fL 6.6-10.1 [facility] Platelets Auto (Bld) [#/Vol] Ordered By: Qasim Mancilla on 10-28-2023 Platelets (Bld) [#/Vol] 227 10*3/uL 150-450 [facility] Potassium [Moles/volume] in Serum or PlasmaOrdered By: Qasim Mancilla on 10-28-2023 Potassium [Moles/Vol] 4.4 mmol/L 3.5-5.1 [facility] Prealbuminon 10-28-2023 Prealbumin [Mass/Vol] 25.1 mg/dL Normal 17.0-34.0 [facility] Comment on above: Result Comment: PERF ORMED BY: [place] [address] PATHOLOGIST ALODIZE MACHINE HELPER MARK ARIAS M.D. Performed By: #### C BC, CMP, PAB #### [address] Prealbumin [Mass/volume] in Serum or PlasmaOrdered By: Qasim Mancilla on 10-28-2023 Prealbumin [Mass/Vol] 25.1 mg/dL 17.0-34.0 [facility] Protein [Mass/volume] in Ser um or PlasmaOrdered By: Qasim Mancilla on 10-28-2023 Protein [Mass/Vol] 6.2 g/dL 6.4-8.9 [facility] RBC Auto (Bld) [#/Vol]Ordere d By: Qasim Mancilla on 10-28-2023 RBC (Bld) [#/Vol] 4.12 10*6/uL 3.90-5.60 [facility] Serum or plasma albumin/glob ulin mass ratioOrdered By: Qasim Mancilla on 10-28-2023 Albumin/Globulin [Mass ratio] 1.7 {ratio} [facility] Serum or plasma anion gap de terminationOrdered By: Qasim Mancilla on 10-28-2023 Anion gap [Moles/Vol] 11.6 mmol/L 6.0-15.0 [facility] Sodium [Moles/volume] in Ser um or PlasmaOrdered By: Qasim Mancilla on 10-28-2023 Sodium [Moles/Vol] 141 mmol/L 136-145 [facility] Urea nitrogen [Mass/volume] in Serum or PlasmaOrdered By: Qasim Mancilla on 10-28-2023 Urea nitrogen [Mass/Vol] 26 mg/dL 7-25 [facility] WBC Auto (Bld) [#/Vol]Ordere d By: Qasim Mancilla on 10-28-2023 WBC (Bld) [#/Vol] 7.4 10*3/uL 4.1-10.5 [facility] BASIC METABOLIC PANLon 10-24 Anion gap [Moles/Vol] 9 mmol/L Normal 5-15 [facility] Comment on above: Performed By: #### H H, BMP ####[facility] ([id number])[address], [place] [address] Calcium [Mass/Vol] 9.1 mg/dL Normal 8.5-10.5 [facility] Comment on above: Performed By: #### H H, BMP ####[facility] ([id number])[address] [place] [address] Chloride [Moles/Vol] 104 mmol/L Normal 98-109 [facility] Comment on above: Performed By: #### H H, BMP ####[facility] ([id number])[address] [place] [address] CO2 [Moles/Vol] 28 mmol/L Normal 22-32 [facility] Comment on above: Performed By: #### H H, BMP ####[facility] ([id number])[address] [address] Creatinine [Mass/Vol] 0.69 mg/dL Normal 0.60-1.30 [facility] Comment on above: Result Comment: METH OD TRACEABLE TO IDMS STANDARD Performed By: #### H H, BMP ####[facility] ([id number])[address] [address] eGFR (CKD-EPI) NON-RACE DEPENDENT >90 Normal >59 [facility] Comment on above: Result Comment: Reported eGFR is based on the CKD-EPI 2020 equation that does not use a race coefficient. Performed By: #### H H, BMP ####[facility] ([id number])[address] [address] Glucose [Mass/Vol] 102 mg/dL High 65-99 [facility] Comment on above: Performed By: #### H H, BMP ####[facility] ([id number])[address] [address] Potassium [Moles/Vol] 3.9 mmol/L Normal 3.5-5.0 [facility] Comment on above: Performed By: #### H H, BMP ####[facility] ([id number])[address] [address] Sodium [Moles/Vol] 141 mmol/L Normal 134-146 [facility] Comment on above: Performed By: #### H H, BMP ####[facility] ([id number])[address] [address] Urea nitrogen [Mass/Vol] 20 mg/dL Normal 5-23 [facility] Comment on above: Performed By: #### H H, BMP ####[facility] ([id number])[address] [place] [address] HGB AND HCTon 10-25-2023 Hematocrit (Bld) [Volume fraction] 36.2 % Low 39-49 [facility] Comment on above: Performed By: #### H H, BMP ####[facility] ([id number])[address] [place] [address] Hemoglobin (Bld) [Mass/Vol] 12.1 g/dL Low 13.0-17.0 [facility] Comment on above: Performed By: #### H H, BMP ####[facility] ([id number])[address] [place] [address] BASIC METABOLIC PANLon 10-23 Anion gap [Moles/Vol] 10 mmol/L Normal 5-15 [facility] Comment on above: Performed By: #### H H, BMP ####[facility] ([id number])[address] [place] [address] Calcium [Mass/Vol] 8.7 mg/dL Normal 8.5-10.5 [facility] Comment on above: Performed By: #### H H, BMP ####[facility] ([id number])[address], [place] [address] Chloride [Moles/Vol] 107 mmol/L Normal 98-109 [facility] Comment on above: Performed By: #### H H, BMP ####[facility] ([id number])[address], [place] [address] CO2 [Moles/Vol] 28 mmol/L Normal 22-32 [facility] Comment on above: Performed By: #### H H, BMP ####[facility] ([id number])[address] [place] [address] Creatinine [Mass/Vol] 0.73 mg/dL Normal 0.60-1.30 [facility] Comment on above: Result Comment: METH OD TRACEABLE TO IDMS STANDARD Performed By: #### H H, BMP ####[facility] ([id number])[address] [address], [place] [address] eGFR (CKD-EPI) NON-RACE DEPENDENT >90 Normal >59 [facility] Comment on above: Result Comment: Reported eGFR is based on the CKD-EPI 2020 equation that does not use a race coefficient. Performed By: #### H H, BMP ####[facility] ([id number])[address] [address] [place] [address] Glucose [Mass/Vol] 94 mg/dL Normal 65-99 [facility] Comment on above: Performed By: #### H H, BMP ####[facility] ([id number])[address] [address] [place] [address] Potassium [Moles/Vol] 4.1 mmol/L Normal 3.5-5.0 [facility] Comment on above: Performed By: #### H H, BMP ####[facility] ([id number])[address] [address] [place] [address] Sodium [Moles/Vol] 145 mmol/L Normal 134-146 [facility] Comment on above: Performed By: #### H H, BMP ####[facility] ([id number])[address] [address] [place] [address] Urea nitrogen [Mass/Vol] 20 mg/dL Normal 5-23 [facility] Comment on above: Performed By: #### H H, BMP ####[facility] ([id number])[address] [address] [place] [address] HGB AND HCTon 10-24-2023 Hematocrit (Bld) [Volume fraction] 35.0 % Low 39-49 [facility] Comment on above: Performed By: #### H H, BMP ####[facility] ([id number])[address] [place] [address] Hemoglobin (Bld) [Mass/Vol] 11.9 g/dL Low 13.0-17.0 [facility] Comment on above: Performed By: #### H H, BMP ####[facility] ([id number])[address] [place] [address] BASIC METABOLIC PANLon 10-22 Anion gap [Moles/Vol] 6 mmol/L Normal 5-15 [facility] Comment on above: Performed By: #### H H, BMP ####[facility] ([id number])[address], [place] [address] Calcium [Mass/Vol] 8.4 mg/dL Low 8.5-10.5 [facility] Comment on above: Performed By: #### H H, BMP ####[facility] ([id number])[address], [place] [address] Chloride [Moles/Vol] 106 mmol/L Normal 98-109 [facility] Comment on above: Performed By: #### H H, BMP ####[facility] ([id number])[address] [address] [place] [address], [place] [address] CO2 [Moles/Vol] 29 mmol/L Normal 22-32 [facility] Comment on above: Performed By: #### H H, BMP ####[facility] ([id number])[address], [facility] [facility] [place] [address] Creatinine [Mass/Vol] 0.76 mg/dL Normal 0.60-1.30 [facility] Comment on above: Result Comment: METH OD TRACEABLE TO IDMS STANDARD Performed By: #### H H, BMP ####[facility] ([id number])[address] [address], [place] [address] eGFR (CKD-EPI) NON-RACE DEPENDENT >90 Normal >59 [facility] Comment on above: Result Comment: Reported eGFR is based on the CKD-EPI 2020 equation that does not use a race coefficient. Performed By: #### H H, BMP ####[facility] ([id number])[address] [address], [place] [address] Glucose [Mass/Vol] 99 mg/dL Normal 65-99 [facility] Comment on above: Performed By: #### H H, BMP ####[facility] ([id number])[address] [place] [address] Potassium [Moles/Vol] 4.1 mmol/L Normal 3.5-5.0 [facility] Comment on above: Performed By: #### H H, BMP ####[facility] ([id number])[address] [place] [address] Sodium [Moles/Vol] 141 mmol/L Normal 134-146 [facility] Comment on above: Performed By: #### H H, BMP ####[facility] ([id number])[address] [place] [address] Urea nitrogen [Mass/Vol] 15 mg/dL Normal 5-23 [facility] Comment on above: Performed By: #### H H, BMP ####[facility] ([id number])[address] [place] [address] HGB AND HCTon 10-23-2023 Hematocrit (Bld) [Volume fraction] 36.0 % Low 39-49 [facility] Comment on above: Performed By: #### H H, BMP ####[facility] ([id number])[address] [place] [address] Hemoglobin (Bld) [Mass/Vol] 12.0 g/dL Low 13.0-17.0 [facility] Comment on above: Performed By: #### H H, BMP ####[facility] ([id number])[address] [place] [address] MR LUMBAR SPINE WO CONTon MR LUMBAR [...] * Mild retrolisthesis of L1 on L2. Finalized by Xu Avitia MD on 10/23/2023 2:26 PM Normal [facility] BASIC METABOLIC PANLon 10-21 Anion gap [Moles/Vol] 5 mmol/L Normal 5-15 [facility] Comment on above: Performed By: #### H Kobe, BMP ####[facility] ([id number])[address], [address] [place] [address] Calcium [Mass/Vol] 8.5 mg/dL Normal 8.5-10.5 [facility] Comment on above: Performed By: #### H Kobe, BMP ####[facility] ([id number])[address] [address] [place] [address] Chloride [Moles/Vol] 108 mmol/L Normal 98-109 [facility] Comment on above: Performed By: #### H H, BMP ####[facility] ([id number])[address], [address], [place] [address] CO2 [Moles/Vol] 28 mmol/L Normal 22-32 [facility] Comment on above: Performed By: #### H H, BMP ####[facility] ([id number])[address] [address] [place] [address] Creatinine [Mass/Vol] 0.77 mg/dL Normal 0.60-1.30 [facility] Comment on above: Result Comment: METH OD TRACEABLE TO IDMS STANDARD Performed By: #### H H, BMP ####[facility] ([id number])[address] [address] [place] [address] eGFR (CKD-EPI) NON-RACE DEPENDENT >90 Normal >59 [facility] Comment on above: Result Comment: Reported eGFR is based on the CKD-EPI 2020 equation that does not use a race coefficient. Performed By: #### H H, BMP ####[facility] ([id number])0 [address] [address] [place] [address], [place] [address] Glucose [Mass/Vol] 112 mg/dL High 65-99 [facility] Comment on above: Performed By: #### H H, BMP ####[facility] ([id number])0 [address] [address] [place] [address], [place] [address] Potassium [Moles/Vol] 4.6 mmol/L Normal 3.5-5.0 [facility] Comment on above: Performed By: #### H H, BMP ####[facility] ([id number])[address] [address] [place] [address] Sodium [Moles/Vol] 141 mmol/L Normal 134-146 [facility] Comment on above: Performed By: #### H H, BMP ####[facility] ([id number])[address], [address] [place] [address] Urea nitrogen [Mass/Vol] 12 mg/dL Normal 5-23 [facility] Comment on above: Performed By: #### H H, BMP ####[facility] ([id number])[address], [address] [place] [address] [place] FLUORO GUIDANCE SPINAL PU NCTURE OPERATIVEon [...] the dedicated operative note, for complete characterization. Finalized by Vitor Mirza on 10/22/2023 12:33 PM Normal [facility] HGB AND HCTon 10-22-2023 Hematocrit (Bld) [Volume fraction] 37.0 % Low 39-49 [facility] Comment on above: Performed By: #### H H, BMP #### [facility] ([id number]) [address], [address] [address] Hemoglobin (Bld) [Mass/Vol] 12.6 g/dL Low 13.0-17.0 [facility] Comment on above: Performed By: #### H H, BMP #### [facility] ([id number]) [address], [address] [address] Bacteria identified Cx Nom ( U)on 10-09-2023 Service comment (Unsp spec) [Interp] NO GROWTH AT <1000 CFU/mL [facility] ABO Rh Repeaton 10-08-2023 ABO O [facility] Rh Nom (Bld) Positive [facility] APTTon 10-08-2023 aPTT Coag (PPP) [Time] 40 s High [facility] BASIC METABOLIC PANLon 10-08 Anion gap [Moles/Vol] 9 mmol/L Normal 5-15 [facility] Comment on above: Performed By: #### C BCA, BMP, PINR, 10396-3 #### [facility] ([id number]) [address], [address] [place] [address] Calcium [Mass/Vol] 9.4 mg/dL Normal 8.5-10.5 [facility] Comment on above: Performed By: #### C BCA, BMP, PINR, 02670-0 #### [facility] ([id number]) [address], [address] [place] [address] Chloride [Moles/Vol] 104 mmol/L Normal 98-109 [facility] Comment on above: Performed By: #### C BCA, BMP, PINR, 12781-7 #### [facility] ([id number]) [address], [address] [place] [address] CO2 [Moles/Vol] 28 mmol/L Normal 22-32 [facility] Comment on above: Performed By: #### C BCA, BMP, PINR, 36921-3 #### [facility] ([id number]) [address], [address] [place] [address] Creatinine [Mass/Vol] 0.95 mg/dL Normal 0.60-1.30 [facility] Comment on above: Result Comment: METH OD TRACEABLE TO IDMS STANDARD Performed By: #### C BCA, BMP, PINR, 34984-2 #### [facility] ([id number]) [address], [address] [place] [address] eGFR (CKD-EPI) NON-RACE DEPENDENT >90 Normal >59 [facility] Comment on above: Result Comment: Reported eGFR is based on the CKD-EPI 2020 equation that does not use a race coefficient. Performed By: #### C BCA, BMP, PINR, 19224-6 #### [facility] ([id number]) [address], [address] [place] [address] Glucose [Mass/Vol] 96 mg/dL Normal 65-99 [facility] Comment on above: Performed By: #### C BCA, BMP, PINR, 77596-1 #### [facility] ([id number]) [address], [facility] [address] [place] [address] Potassium [Moles/Vol] 4.1 mmol/L Normal 3.5-5.0 [facility] Comment on above: Performed By: #### C BCA, BMP, PINR, 82937-4 #### [facility] ([id number]) [address], [facility] [address] [place] [address] Sodium [Moles/Vol] 141 mmol/L Normal 134-146 [facility] Comment on above: Performed By: #### C BCA, BMP, PINR, 21779-3 #### [facility] ([id number]) [address], [address] [address] Urea nitrogen [Mass/Vol] 13 mg/dL Normal 5-23 [facility] Comment on above: Performed By: #### C BCA, BMP, PINR, 00581-9 #### [facility] ([id number]) [address], [address] [place] [address] Basic Metabolic Panelon -2 Anion gap [Moles/Vol] 9 mmol/L 5 - 15 mmol/L [facility] Calcium [Mass/Vol] 9.4 mg/dL 8.5 - 10. 5 mg/dL [facility] Chloride [Moles/Vol] 104 mmol/L 98 - 10 9 mmol/L [facility] CO2 [Moles/Vol] 28 mmol/L 22 - 32 mmol/L [facility] Creatinine [Mass/Vol] 0.95 mg/dL 0.60 - 1.30 mg/dL [facility] Comment on above: METHOD TRACEABLE TO IDMS STANDARD eGFR (CKD-EPI)non-race dependent - PINF [facility] Comment on above: Reported eGFR is based on the CKD-EPI 2020 equation that does not use a race coefficient. Glucose [Mass/Vol] 96 mg/dL 65 - 99 mg/dL [facility] Potassium [Moles/Vol] 4.1 mmol/L 3.5 - 5.0 mmol/L [facility] Sodium [Moles/Vol] 141 mmol/L 134 - 146 mmol/L [facility] Urea nitrogen [Mass/Vol] 13 mg/dL 5 - 23 mg/dL [facility] CBC AND AUTO DIFFon 10-08-19 ABSOLUTE BASOPHIL 0.0 X10E9/L Normal 0.0-0.2 [facility] Comment on above: Performed By: #### C BCA, BMP, PINR, 95642-4 #### [facility] ([id number]) [address], [address] [place] [address] ABSOLUTE NEUTROPHIL 4.2 X10E9/L Normal 1.5-6.6 [facility] Comment on above: Performed By: #### C BCA, BMP, PINR, 58871-1 #### [facility] ([id number]) [address], [address] [place] [address] Basophils/100 WBC (Bld) 0.7 % Normal [facility] Comment on above: Performed By: #### C BCA, BMP, PINR, 42700-5 #### [facility] ([id number]) [address], [address] [place] [address] Eosinophils (Bld) [#/Vol] 0.1 10*3/uL Normal 0.0-0.4 [facility] Comment on above: Performed By: #### C BCA, BMP, PINR, 22658-1 #### [facility] ([id number]) [address], [address] [place] [address] Eosinophils/100 WBC (Bld) 1.1 % Normal [facility] Comment on above: Performed By: #### C BCA, BMP, PINR, 62842-5 #### [facility] ([id number]) [address], [address] [place] [address] Erythrocyte distribution width (RBC) [Ratio] 14.0 % Normal 11.5-15.0 [facility] Comment on above: Performed By: #### C BCA, BMP, PINR, 06671-6 #### [facility] ([id number]) [address], [address] [place] [address] Hematocrit (Bld) [Volume fraction] 39.4 % Normal 39-49 [facility] Comment on above: Performed By: #### C BCA, BMP, PINR, 82994-2 #### [facility] ([id number]) [address], [address] [place] [address] Hemoglobin (Bld) [Mass/Vol] 13.3 g/dL Normal 13.0-17.0 [facility] Comment on above: Performed By: #### C BCA, BMP, PINR, 96021-5 #### [facility] ([id number]) [address], [address] [place] [address] Lymphocytes (Bld) [#/Vol] 2.2 10*3/uL Normal 1.0-3.5 [facility] Comment on above: Performed By: #### C BCA, BMP, PINR, 50005-3 #### [facility] ([id number]) [address], [address] [place] [address] Lymphocytes/100 WBC (Bld) 31.4 % Normal [facility] Comment on above: Performed By: #### C BCA, BMP, PINR, 03163-5 #### [facility] ([id number]) [address], [address] [place] [address] MCH (RBC) [Entitic mass] 31.2 pg Normal 27-34 [facility] Comment on above: Performed By: #### C BCA, BMP, PINR, 98919-8 #### [facility] ([id number]) [address], [facility] [address] [place] [address] MCHC (RBC) [Mass/Vol] 33.7 g/dL Normal 32-36 [facility] Comment on above: Performed By: #### C BCA, BMP, PINR, 74785-4 #### [facility] ([id number]) [address] [address] [place] [address] MCV (RBC) [Entitic vol] 93 fL Normal 80-100 [facility] Comment on above: Performed By: #### C BCA, BMP, PINR, 90435-1 #### [facility] ([id number]) [address], [facility] [address] [place] [address] Monocytes (Bld) [#/Vol] 0.5 10*3/uL Normal 0-0.9 [facility] Comment on above: Performed By: #### C BCA, BMP, PINR, 73554-3 #### [facility] ([id number]) [address], [address] [place] [address] Monocytes/100 WBC (Bld) 7.2 % Normal [facility] Comment on above: Performed By: #### C BCA, BMP, PINR, 30768-4 #### [facility] ([id number]) [address], [facility] [address] [place] [address] Neutrophils/100 WBC (Bld) 59.6 % Normal [facility] Comment on above: Performed By: #### C BCA, BMP, PINR, 66169-4 #### [facility] ([id number]) [address] [address] Platelet mean volume (Bld) [Entitic vol] 9.1 fL Normal 7-12 [facility] Comment on above: Performed By: #### C BCA, BMP, PINR, 91808-4 #### [facility] ([id number]) [address] [address] Platelets (Bld) [#/Vol] 212 10*3/uL Normal 150-450 [facility] Comment on above: Performed By: #### C BCA, BMP, PINR, 05971-4 #### [facility] ([id number]) [address] [address] RBC COUNT 4.25 X10E12/L Normal 4.10-5.70 [facility] Comment on above: Performed By: #### C BCA, BMP, PINR, 09876-0 #### [facility] ([id number]) [address] [address] WBC (Bld) [#/Vol] 7.1 10*3/uL Normal 4.0-11.0 [facility] Comment on above: Performed By: #### C BCA, BMP, PINR, 72462-6 #### [facility] ([id number]) [address] [address] CBC auto differentialon 09-17 Basophils (Bld) [#/Vol] 0.0 10*3/uL [facility] Basophils/100 WBC (Bld) 0.7 % [facility] Eosinophils (Bld) [#/Vol] 0.1 10*3/uL [facility] Eosinophils/100 WBC (Bld) 1.1 % [facility] Erythrocyte distribution width (RBC) [Ratio] 14.0 % 11.5 - 15.0 % [facility] Hematocrit (Bld) [Volume fraction] 39.4 % 39 - 49 % [facility] Hemoglobin (Bld) [Mass/Vol] 13.3 g/dL 13.0 - 17.0 g/dL [facility] Lymphocytes (Bld) [#/Vol] 2.2 10*3/uL [facility] Lymphocytes/100 WBC (Bld) 31.4 % [facility] MCH (RBC) [Entitic mass] 31.2 pg 27 - 34 pg [facility] MCHC (RBC) [Mass/Vol] 33.7 g/dL 32 - 3 6 g/dL [facility] MCV (RBC) [Entitic vol] 93 fL 80 - 100 fL [facility] Monocytes (Bld) [#/Vol] 0.5 10*3/uL [facility] Monocytes/100 WBC (Bld) 7.2 % [facility] Neutrophils (Bld) [#/Vol] 4.2 10*3/uL [facility] Neutrophils/100 WBC (Bld) 59.6 % [facility] Platelet mean volume (Bld) [Entitic vol] 9.1 fL 7 - 12 fL [facility] Platelets (Bld) [#/Vol] 212 10*3/uL [facility] RBC (Bld) [#/Vol] 4.25 10*6/uL [facility] WBC corrected for nucl RBC Auto (Bld) [#/Vol] 7.1 [facility] ECG 12 leadon 10-08-2023 TRACEMASTERVUE [facility] No Panel Informationon 10-08 [facility] PROTIME AND INRon 10-08-2023 INR Coag (PPP) [Relative time] 1.0 {INR} Normal 0.8-1.1 [facility] Comment on above: Performed By: #### C BCA, BMP, PINR, 84825-9 #### [facility] ([id number]) [address] [facility] [place] [address] PT Coag (PPP) [Time] 11.1 s Normal 9.8-13.2 [facility] Comment on above: Performed By: #### C BCA, BMP, PINR, 86231-6 #### [facility] ([id number]) [address], [address] [place] [address] Protime & INRon 10-08-2023 INR Coag (PPP) [Relative time] 1.0 {INR} [facility] PT Coag (PPP) [Time] 11.1 s [facility] Type and screenon 10-08-2023 ABO O [facility] Rh Nom (Bld) Positive [facility] URINALYSISon 10-08-2023 Bilirubin Ql (U) Negative Normal NEG [facility] BLOOD/HGB Negative Normal NEG [facility] Color (U) YELLOW Normal YELLOW [facility] Glucose Ql (U) Negative Normal NEG [facility] Ketones Ql (U) Negative Normal NEG [facility] Leukocyte esterase Test strip Ql (U) Negative Normal NEG [facility] Nitrite Ql (U) Negative Normal NEG [facility] pH (U) 7.5 [pH] Normal 5.0-8.5 [facility] Protein Ql (U) Negative Normal NEG [facility] Specific gravity (U) [Rel density] 1.010 Normal 1.003-1.03 5 [facility] TURBIDITY CLEAR Normal CLEAR [facility] Urobilinogen (U) [Mass/Vol] mg/dL Normal <1.1 [facility] URINE CULTUREon 10-08-2023 Bacteria identified Cx Nom (U) CULTURE RESULTS NO GROWTH AT <1000 CFU/mL Normal [facility] Comment on above: Performed By: #### 6 30-4 #### [facility] ([id number]) [address], [address] [place] [address] Urinalysison 10-08-2023 Bilirubin Ql (U) Negative Negative^N egative [facility] Color (U) YELLOW YELLOW^YEL LOW [facility] Glucose (U) [Mass/Vol] Negative Negative^N egative mg/dL [facility] Hemoglobin Auto test strip Ql (U) Negative Negative^N egative [facility] Ketones (U) [Mass/Vol] Negative Negative^N egative mg/dL [facility] Leukocyte esterase Auto test strip Ql (U) Negative Negative^N egative [facility] Nitrite Auto test strip Ql (U) Negative Negative^N egative [facility] pH (U) 7.5 [pH] 5.0 - 8.5 [facility] Protein (U) [Mass/Vol] Negative Negative^N egative mg/dL [facility] Specific gravity Refractometry automated (U) [Rel density] 1.010 1.003 - 1.035 [facility] Turbidity Ql (U) CLEAR CLEAR^GERONIMO R [facility] Urobilinogen Qn (U) NINF [employer] [facility] aPTT Coag (PPP) [Time]on aPTT Coag (Bld) [Time] 40 s High 26-37 [facility] Comment on above: Performed By: #### C BCA, BMP, PINR, 96882-7 #### [facility] ([id number]) [address] [facility] [place] [address] Interpretation and review of laboratory results Abnormal [facility] Physician Referralon 024 Physician Referral [phone] 2051 [id number] F Normal [facility] XR Chest PA and Lateralon Brenden Zapien MD - 09/23/2023 CLINICAL INFORMATION: . Pre-op testing. TECHNIQUE/PROCEDURE: Chest radiographs, two views. COMPARISON: Prior chest radiographs, most recently 05/24/2018 FINDINGS: No tracheal deviation. Cardiac and mediastinal contours are normal. No consolidation, pneumothorax or pleural effusion. No free air. IMPRESSION: * No radiographic evidence of acute cardiopulmonary disease. Finalized by Brenden Zapien MD on 09/23/2023 4:11 PM [facility] Radiology Study observation (narrative) [facility] XR Chest PA and LateralOrder ed By: Brenden Zapien on 09-23-2023 [facility] Work Phone: CT LUMBAR SPINE WO CONTon [...] are noted at T10-11 and T11-12. Underlying spondyloarthropathy. Please also refer to prior MRI report from 08/03/2023 No acute process. Impression: Chronic and postsurgical changes are noted. These are detailed above. Please correlate with the clinical picture.. All CT scans at this facility use dose modulation, iterative reconstruction, and/or weight based dosing when appropriate to reduce radiation dose to as low as reasonably achievable. Finalized by Rhiannon Andrade MD on 09/10/2023 1:49 PM Normal [facility] XR SPINE LUMB BENDING ONLY 2 [...] and facet arthritis. . 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 Finalized by Rohit Combs MD on 08/04/2023 9:59 AM Normal [facility] XR lumbar spine AP/LAT/FLX/E XTon 05-24-2023 XR lumbar spine AP/LAT/FLX/EXT [facility] [address] XRay Report Signed Patient: Celestino Ziegler MR#: [id number] : 1970 Acct:[id number] Age/Sex: 52 / M ADM Date: 05/24/23 Loc: XD Room: Type: [facility] CLI Attending Dr: Trino Cadet MD Copies to: [...] Mesfin Snell M.D.05/24/2023 8:03 PM Dictation Location: [place] [address] Transcribed By: [facility] 05/24/232002 Dictated By: Mesfin Snell II, MD 05/24/232001 Signed By: 05/24/232002 Normal [facility] INSULINon 09-04-2022 Insulin 6.5 uIU/mL Normal 2.6-24.9 [facility] Comment on above: Performed By: #### I NSULIN #### [facility] [address] [place] [address] Dr. Randall Ayoub CBC AUTO DIFFon 09-03-2022 BASO # 0.0 103/ul Normal 0.0-0.1 [facility] Comment on above: Performed By: #### C BC #### [facility] [address] [place] [address] Dr. Randall Ayoub Basophils/100 WBC (Bld) 0.6 % Normal 0.2-2.0 [facility] Comment on above: Performed By: #### C BC #### [facility] [address] [place] [address] Dr. Randall Ayoub EO # 0.2 103/ul Normal 0.0-0.7 [facility] Comment on above: Performed By: #### C BC #### [facility] [address] [place] [address] Dr. Randall Ayoub Eosinophils/100 WBC (Bld) 3.2 % Normal 0.9-7.0 [facility] Comment on above: Performed By: #### C BC #### [facility] [address] [place] [address] Dr. Randall Ayoub Erythrocyte distribution width (RBC) [Ratio] 13.8 % Normal 11.0-15.0 [facility] Comment on above: Performed By: #### C BC #### [facility] [address] [place] [address] Dr. Randall Ayoub Hematocrit (Bld) [Volume fraction] 39.5 % Critically low 42.0-54.0 [facility] Comment on above: Performed By: #### C BC #### [facility] [address] [place] [address] Dr. Randall Ayoub Hemoglobin (Bld) [Mass/Vol] 13.0 g/dL Critically low 14.0-18.0 [facility] Comment on above: Performed By: #### C BC #### [facility] [address] [place] [address] Dr. Randall Ayoub IG # 0.00 10e3/ul Normal 0.00-0.03 [facility] Comment on above: Performed By: #### C BC #### [facility] [address] [place] [address] Dr. Randall Ayoub IG % 0.0 % Normal 0.0-0.5 [facility] Comment on above: Performed By: #### C BC #### [facility] [address] [place] [address] Dr. Randall Ayoub LYMPH # 2.3 103/ul Normal 1.2-3.8 [facility] Comment on above: Performed By: #### C BC #### [facility] [address] [place] [address] Dr. Randall Ayoub Lymphocytes/100 WBC (Bld) 35.2 % Normal 20.5-60.0 [facility] Comment on above: Performed By: #### C BC #### [facility] [address] [place] [address] Dr. Randall Ayoub MANUAL DIFF REQ NO Normal [facility] Comment on above: Performed By: #### C BC #### [facility] [address] [place] [address] Dr. Randall Ayoub MCH (RBC) [Entitic mass] 30.8 pg Normal 25.9-34.0 [facility] Comment on above: Performed By: #### C BC #### [facility] [address] [place] [address] Dr. Randall Ayoub MCHC (RBC) [Mass/Vol] 32.9 g/dL Normal 29.9-35.2 [facility] Comment on above: Performed By: #### C BC #### [facility] [address] [place] [address] Dr. Randall Ayoub MCV (RBC) [Entitic vol] 93.6 fL Normal 80.0-94.0 [facility] Comment on above: Performed By: #### C BC #### [facility] [address] [place] [address] Dr. Randall Ayoub MONO # 0.6 103/ul Normal 0.3-0.8 [facility] Comment on above: Performed By: #### C BC #### [facility] [address] [place] [address] Dr. Randall Ayoub Monocytes/100 WBC (Bld) 8.9 % Normal 1.7-12.0 [facility] Comment on above: Performed By: #### C BC #### [facility] [address] [place] [address] Dr. Randall Ayoub NEUT # 3.4 103/ul Normal 1.4-6.5 [facility] Comment on above: Performed By: #### C BC #### [facility] [address] [place] [address] Dr. Randall Ayoub Neutrophils/100 WBC (Bld) 52.1 % Normal 43.0-75.0 [facility] Comment on above: Performed By: #### C BC #### [facility] [address] [place] [address] Dr. Randall Ayoub Platelet mean volume (Bld) [Entitic vol] 10.7 fL Normal 9.5-13.5 [facility] Comment on above: Performed By: #### C BC #### [facility] [address] [place] [address] Dr. Randall Ayoub PLT 186 103/ul Normal 150-450 [facility] Comment on above: Performed By: #### C BC #### [facility] [address] [place] [address] Dr. Randall Ayoub RBC 4.22 106/ul Critically low 4.70-6.10 [facility] Comment on above: Performed By: #### C BC #### [facility] [address] [place] [address] Dr. Randall Ayoub WBC 6.6 103/ul Normal 4.0-11.0 [facility] Comment on above: Performed By: #### C BC #### [facility] [address] [place] [address] Dr. Randall Ayoub GLYCOHEMOGLOBIN A1Con 2022 ADA RECOMMENDATION SEE BELOW Normal [facility] Comment on above: Result Comment: ADA RECOMMENDED LIMIT 4.0 - 6.0 ADA THERAPEUTIC TARGET < 7.0 ACTION SUGGESTED > 7.0 Performed By: #### A 1C #### [facility] [address] [place] [address] Dr. Randall Ayoub Glucose [Mass/Vol] 114 mg/dL Normal [facility] Comment on above: Performed By: #### A 1C #### [facility] [address] [place] [address] Dr. Randall Ayoub HbA1c (Bld) [Mass fraction] 5.6 % Normal 4.5-6.2 [facility] Comment on above: Performed By: #### A 1C #### [facility] [address] [place] [address] Dr. Randall Ayoub LIPID PROFILEon 09-03-2022 CHOL-HDL RATIO NORM SEE BELOW Normal [facility] Comment on above: Result Comment: 3.3 - 4.4 LOW RISK 4.4 - 7.1 AVERAGE RISK 7.1 - 11.0 MODERATE RISK >11.0 HIGH RISK Performed By: #### I NSULIN #### [facility] [address] [place] [address] Dr. Randall Ayoub Cholesterol [Mass/Vol] 181 mg/dL Normal <=200 [facility] Comment on above: Performed By: #### I NSULIN #### [facility] [address] [place] [address] Dr. Randall Ayoub Cholesterol in HDL [Mass/Vol] 47 mg/dL Normal 40-60 [facility] Comment on above: Performed By: #### I NSULIN #### [facility] [address] [place] [address] Dr. Randall Ayoub Cholesterol in LDL [Mass/Vol] 113.4 mg/dL Normal [facility] Comment on above: Performed By: #### I NSULIN #### [facility] [address] [place] [address] Dr. Randall Ayoub Cholesterol.total/Cho lesterol in HDL [Mass ratio] 3.9 {ratio} Normal [facility] Comment on above: Performed By: #### I NSULIN #### [facility] [address] [address] [address] Randall Ayoub HDL NORMAL > or = 60 mg/dl - LO W CARDIOVASCULAR RISK <40 mg/dl - HIGH CARDIOVASCULAR RISK Normal [facility] Comment on above: Performed By: #### I NSULIN #### [facility] [address] [address] [address] Randall Ayoub LDL CALC NORMAL SEE BELOW Normal [facility] Comment on above: Result Comment: <100 mg/dl OPTIMAL 100 - 129 mg/dl NEAR OR ABOVE OPTIMAL 130 - 159 mg/dl BORDERLINE HIGH 160 - 189 mg/dl HIGH >190 mg/dl VERY HIGH Performed By: #### I NSULIN #### [facility] [address] [address] [address] Randall Ayoub Triglyceride [Mass/Vol] 103 mg/dL Normal <=150 [facility] Comment on above: Performed By: #### I NSULIN #### [facility] [address] [address] [address] Randall Ayoub VLDL CALC 20.6 mg/dL Normal [facility] Comment on above: Performed By: #### I NSULIN #### [facility] [address] [address] [address] Randall Ayoub PROF 14(COMP METB)on 023 Albumin [Mass/Vol] 3.8 g/dL Normal 3.4-5.0 [facility] Comment on above: Performed By: #### I NSULIN #### [facility] [address] [address] [address] Randall Ayoub Albumin/Globulin [Mass ratio] 1.4 {ratio} Normal [facility] Comment on above: Performed By: #### I NSULIN #### [facility] [address] [address] [address] Randall Ayoub ALP [Catalytic activity/Vol] 72 U/L Normal 46-116 [facility] Comment on above: Performed By: #### I NSULIN #### [facility] [address] [address] [address] Randall Ayoub ALT [Catalytic activity/Vol] 22 U/L Normal 16-63 [facility] Comment on above: Performed By: #### I NSULIN #### [facility] [address] [address] [address] Randall Ayoub Anion gap [Moles/Vol] 12.9 mmol/L Normal [facility] Comment on above: Performed By: #### I NSULIN #### [facility] [address] [address] [address] Randall Ayoub AST [Catalytic activity/Vol] 17 U/L Normal 15-37 [facility] Comment on above: Performed By: #### I NSULIN #### [facility] [address] [address] [address] Randall Ayoub Bilirubin [Mass/Vol] 0.5 mg/dL Normal 0.2-1.0 [facility] Comment on above: Performed By: #### I NSULIN #### [facility] [address] [address] [address] Randall Ayoub Calcium [Mass/Vol] 8.7 mg/dL Normal 8.5-10.1 [facility] Comment on above: Performed By: #### I NSULIN #### [facility] [address] [address] [address] Randall Ayoub Chloride [Moles/Vol] 108 mmol/L Critically high 98-107 [facility] Comment on above: Performed By: #### I NSULIN #### [facility] [address] [address] [address] Randall Ayoub CO2 [Moles/Vol] 27.5 mmol/L Normal 21.0-32.0 [facility] Comment on above: Performed By: #### I NSULIN #### [facility] [address] [address] [address] Randall Ayoub Creatinine [Mass/Vol] 0.92 mg/dL Normal 0.70-1.30 [facility] Comment on above: Performed By: #### I NSULIN #### [facility] [address] [address] [address] Randall Ayoub EGFR-AF CAMBODIAN >60 Normal >=60 [facility] Comment on above: Performed By: #### I NSULIN #### [facility] [address] [address] [address] Randall Ayoub EGFR-NON AF CAMBODIAN >60 Normal >=60 [facility] Comment on above: Performed By: #### I NSULIN #### [facility] [address] [address] [address] Randall Ayoub Globulin (S) [Mass/Vol] 2.7 g/dL Normal [facility] Comment on above: Performed By: #### I NSULIN #### [facility] [address] [address] [address] Randall Ayoub Glucose [Mass/Vol] 96 mg/dL Normal 74-106 [facility] Comment on above: Performed By: #### I NSULIN #### [facility] [address] [place] [address] Dr. Randall Ayoub Potassium [Moles/Vol] 4.4 mmol/L Normal 3.5-5.1 [facility] Comment on above: Performed By: #### I NSULIN #### [facility] [address] [address] [address] Randall Ayoub Protein [Mass/Vol] 6.5 g/dL Normal 6.4-8.2 [facility] Comment on above: Performed By: #### I NSULIN #### [facility] [address] [place] [address] Dr. Randall Ayoub Sodium [Moles/Vol] 144 mmol/L Normal 136-145 The [facility] Comment on above: Performed By: #### I NSULIN #### [facility] [address] [address] [address] Randall Ayoub Urea nitrogen [Mass/Vol] 23.0 mg/dL Critically high 7.0-18.0 [facility] Comment on above: Performed By: #### I NSULIN #### [facility] [address] [address] [address] Randall Ayoub Urea nitrogen/Creatinine [Mass ratio] 25.0 mg/mg Normal [facility] Comment on above: Performed By: #### I NSULIN #### [facility] [address] [place] [address] Dr. Randall Ayoub URIC ACID SERUMon 09-03-2022 Urate [Mass/Vol] 4.2 mg/dL Normal 3.5-7.2 [facility] Comment on above: Performed By: #### I NSULIN #### [facility] [address] [place] [address] Dr. Randall Ayoub CBC AUTO DIFFon 02-03-2022 BASO # 0.0 103/ul Normal 0.0-0.1 [facility] Comment on above: Performed By: #### I NSULIN #### [facility] [address] [place] [address] Dr. Randall Ayoub Basophils/100 WBC (Bld) 0.3 % Normal 0.2-2.0 [facility] Comment on above: Performed By: #### I NSULIN #### [facility] [address] [place] [address] Dr. Randall Ayoub EO # 0.0 103/ul Normal 0.0-0.7 [facility] Comment on above: Performed By: #### I NSULIN #### [facility] [address] [place] [address] Dr. Randall Ayoub Eosinophils/100 WBC (Bld) 0.5 % Critically low 0.9-7.0 [facility] Comment on above: Performed By: #### I NSULIN #### [facility] [address] [place] [address] Dr. Randall Ayoub Erythrocyte distribution width (RBC) [Ratio] 13.4 % Normal 11.0-15.0 [facility] Comment on above: Performed By: #### I NSULIN #### [facility] [address] [place] [address] Dr. Randall Ayoub Hematocrit (Bld) [Volume fraction] 41.7 % Critically low 42.0-54.0 [facility] Comment on above: Performed By: #### I NSULIN #### [facility] [address] [place] [address] Dr. Randall Ayoub Hemoglobin (Bld) [Mass/Vol] 14.0 g/dL Normal 14.0-18.0 [facility] Comment on above: Performed By: #### I NSULIN #### [facility] [address] [place] [address] Dr. Randall Ayoub IG # 0.01 10e3/ul Normal 0.00-0.03 [facility] Comment on above: Performed By: #### I NSULIN #### [facility] [address] [place] [address] Dr. Randall Ayoub IG % 0.3 % Normal 0.0-0.5 [facility] Comment on above: Performed By: #### I NSULIN #### [facility] [address] [place] [address] Dr. Randall Ayoub LYMPH # 1.7 103/ul Normal 1.2-3.8 [facility] Comment on above: Performed By: #### I NSULIN #### [facility] [address] [place] [address] Dr. Randall Ayoub Lymphocytes/100 WBC (Bld) 43.7 % Normal 20.5-60.0 [facility] Comment on above: Performed By: #### I NSULIN #### [facility] [address] [place] [address] Dr. Randall Ayoub MANUAL DIFF REQ NO Normal [facility] Comment on above: Performed By: #### I NSULIN #### [facility] [address] [place] [address] Dr. Randall Ayoub MCH (RBC) [Entitic mass] 31.7 pg Normal 25.9-34.0 [facility] Comment on above: Performed By: #### I NSULIN #### [facility] [address] [place] [address] Dr. Randall Ayoub MCHC (RBC) [Mass/Vol] 33.6 g/dL Normal 29.9-35.2 [facility] Comment on above: Performed By: #### I NSULIN #### [facility] [address] [place] [address] Dr. Randall Ayoub MCV (RBC) [Entitic vol] 94.3 fL Critically high 80.0-94.0 [facility] Comment on above: Performed By: #### I NSULIN #### [facility] [address] [place] [address] Dr. Randall Ayoub MONO # 0.6 103/ul Normal 0.3-0.8 [facility] Comment on above: Performed By: #### I NSULIN #### [facility] [address] [place] [address] Dr. Randall Ayoub Monocytes/100 WBC (Bld) 14.7 % Critically high 1.7-12.0 [facility] Comment on above: Performed By: #### I NSULIN #### [facility] [address] [place] [address] Dr. Randall Ayoub NEUT # 1.6 103/ul Normal 1.4-6.5 [facility] Comment on above: Performed By: #### I NSULIN #### [facility] [address] [place] [address] Dr. Randall Ayoub Neutrophils/100 WBC (Bld) 40.5 % Critically low 43.0-75.0 [facility] Comment on above: Performed By: #### I NSULIN #### [facility] [address] [place] [address] Dr. Randall Ayoub Platelet mean volume (Bld) [Entitic vol] 10.1 fL Normal 9.5-13.5 [facility] Comment on above: Performed By: #### I NSULIN #### [facility] [address] [place] [address] Dr. Randall Ayoub PLT 171 103/ul Normal 150-450 [facility] Comment on above: Performed By: #### I NSULIN #### [facility] [address] [place] [address] Dr. Randall Ayoub RBC 4.42 106/ul Critically low 4.70-6.10 [facility] Comment on above: Performed By: #### I NSULIN #### [facility] [address] [place] [address] Dr. Randall Ayoub WBC 3.9 103/ul Critically low 4.0-11.0 [facility] Comment on above: Performed By: #### I NSULIN #### [facility] [address] [place] [address] Dr. Randall Ayoub Covid-19 PCR ([facility])on 01-15 SARS-CoV-2 (COVID-19) RNA SERGIO+probe Ql (Unsp spec) Not detected Normal NOT DETECTED [facility] Comment on above: Result Comment: This test is not yet approved or cleared by the [place] FDA. When there are no FDA-approved or cleared tests available, and other criteria are met, FDA can make tests available under an emergency access mechanism called an Emergency Use Authorization (EUA). The EUA for this test is supported by the [place] of Health and Human Service's (HHS's) declaration [...] consistent with SARS-CoV-2. Performed By: #### C VDTBH #### [facility] [address] [place] [address] Dr. Randall Ayoub ER URINE PROFILEon Bilirubin Ql (U) MODERATE Abnormal NEGATIVE [facility] Comment on above: Performed By: #### E RUR #### [facility] [address] [place] [address] Dr. Randall Ayoub Clarity (U) CLEAR Normal CLEAR [facility] Comment on above: Performed By: #### E RUR #### [facility] [address] [place] [address] Dr. Randall Ayoub Color (U) DK. YELLOW Normal YELLOW [facility] Comment on above: Performed By: #### E RUR #### [facility] [address] [place] [address] Dr. Randall REYES A micrscopic examina tion will be performed if indicated. Normal [facility] Comment on above: Performed By: #### E RUR #### [facility] [address] [place] [address] Dr. Randall Ayoub Glucose Ql (U) Negative Normal NEGATIVE The [facility] Comment on above: Performed By: #### E RUR #### [facility] [address] [place] [address] Dr. Randall Ayoub Hemoglobin Ql (U) Negative Normal NEGATIVE [facility] Comment on above: Performed By: #### E RUR #### [facility] [address] [place] [address] Dr. Randall Ayoub Ketones Ql (U) >=80 Abnormal NEGATIVE [facility] Comment on above: Performed By: #### E RUR #### [facility] [address] [place] [address] Dr. Randall Ayoub LEUKOCYTES Negative Normal NEGATIVE [facility] Comment on above: Performed By: #### E RUR #### [facility] [address] [place] [address] Dr. Randall Ayoub Nitrite Ql (U) Negative Normal NEGATIVE [facility] Comment on above: Performed By: #### E RUR #### [facility] [address] [place] [address] Dr. Randall Ayoub pH (U) 6.5 [pH] Normal 5-9 [facility] Comment on above: Performed By: #### E RUR #### [facility] [address] [place] [address] Dr. Randall Ayoub Protein (U) [Mass/Vol] 30 mg/dL Abnormal NEGATIVE/ TRACE [facility] Comment on above: Performed By: #### E RUR #### [facility] [address] [place] [address] Dr. Randall Ayoub SPEC GRAVITY 1.025 Normal 1.005-<=1. 025 [facility] Comment on above: Performed By: #### E RUR #### [facility] [address] [place] [address] Dr. Randall Ayoub UR MICRO IND NOT INDICATED Normal [facility] Comment on above: Performed By: #### E RUR #### [facility] [address] [place] [address] Dr. Randall Ayoub Urobilinogen Qn (U) 1.0 {Kavita'U}/dL Normal 0.2 - 1. 0 [facility] Comment on above: Performed By: #### E RUR #### [facility] [address] [place] [address] Dr. Randall Ayoub INFLUENZA A AND B AGon 02-03 INFLUANEGH SEE BELOW Normal [facility] Comment on above: Result Comment: Nega tive for Flu A protein angiten. Infection due to Flu A cannot be ruled out. Flu A angiten in the sample may be below the detection limit of the test. Performed By: #### I NSULIN #### [facility] [address] [place] [address] Dr. Randall Ayoub INFLUBNEGH SEE BELOW Normal [facility] Comment on above: Result Comment: Nega tive for Flu B protein antigen. Infection due to Flu B cannot be ruled out. Flu B antigen in the sample may be below the detection limit of the test. Performed By: #### I NSULIN #### [facility] [address] [place] [address] Dr. Randall Ayoub INFLUENZA A AG Negative Normal NEGATIVE SEE COMMENT [facility] Comment on above: Performed By: #### I NSULIN #### [facility] [address] [place] [address] Dr. Randall Ayoub INFLUENZA B AG Negative Normal NEGATIVE SEE COMMENT [facility] Comment on above: Performed By: #### I NSULIN #### [facility] [address] [place] [address] Dr. Randall Ayoub INTERNAL CONTROLS Within Normal Limits Normal Wi thin Normal Limits [facility] Comment on above: Performed By: #### I NSULIN #### [facility] [address] [place] [address] Dr. Randall Ayoub LACTATE/LACTIC ACIDon 2021 Lactate [Moles/Vol] 1.2 mmol/L Normal 0.4-1.[address] [facility] Comment on above: Performed By: #### L ACT #### [facility] [address] [place] [address] Dr. Randall Ayoub PROF 14(COMP METB)on 022 Albumin [Mass/Vol] 4.0 g/dL Normal 3.4-5.0 [facility] Comment on above: Performed By: #### C MP #### [facility] [address] [place] [address] Dr. Randall Ayoub Albumin/Globulin [Mass ratio] 1.3 {ratio} Normal [facility] Comment on above: Performed By: #### C MP #### [facility] [address] [place] [address] Dr. Randall Ayoub ALP [Catalytic activity/Vol] 71 U/L Normal 46-116 [facility] Comment on above: Performed By: #### C MP #### [facility] [address] [place] [address] Dr. Randall Ayoub ALT [Catalytic activity/Vol] 26 U/L Normal 16-63 [facility] Comment on above: Performed By: #### C MP #### [facility] [address] [place] [address] Dr. Randall Ayoub Anion gap [Moles/Vol] 15.4 mmol/L Normal [facility] Comment on above: Performed By: #### C MP #### [facility] [address] [place] [address] Dr. Randall Ayoub AST [Catalytic activity/Vol] 15 U/L Normal 15-37 [facility] Comment on above: Performed By: #### C MP #### [facility] [address] [place] [address] Dr. Randall Ayoub Bilirubin [Mass/Vol] 0.6 mg/dL Normal 0.2-1.0 [facility] Comment on above: Performed By: #### C MP #### [facility] [address] [place] [address] Dr. Randall Ayoub Calcium [Mass/Vol] 8.9 mg/dL Normal 8.5-10.1 [facility] Comment on above: Performed By: #### C MP #### [facility] [address] [address] [address] Randall Ayoub Chloride [Moles/Vol] 108 mmol/L Critically high 98-107 [facility] Comment on above: Performed By: #### C MP #### [facility] [address] [address] [address] Randall Ayoub CO2 [Moles/Vol] 23.1 mmol/L Normal 21.0-32.0 [facility] Comment on above: Performed By: #### C MP #### [facility] [address] [address] [address] Randall Ayoub Creatinine [Mass/Vol] 0.96 mg/dL Normal 0.70-1.30 [facility] Comment on above: Performed By: #### C MP #### [facility] [address] [place] [address] Dr. Randall Ayoub EGFR-AF CAMBODIAN >60 Normal >=60 [facility] Comment on above: Performed By: #### C MP #### [facility] [address] [address] [address] Randall Ayoub EGFR-NON AF [place]IAN >60 Normal >=60 [facility] Comment on above: Performed By: #### C MP #### [facility] [address] [place] [address] Dr. Randall Ayoub Globulin (S) [Mass/Vol] 3.0 g/dL Normal [facility] Comment on above: Performed By: #### C MP #### [facility] [address] [address] [address] Randall Ayoub Glucose [Mass/Vol] 99 mg/dL Normal 74-106 The [facility] Comment on above: Performed By: #### C MP #### [facility] [address] [place] [address] Dr. Randall Ayoub Potassium [Moles/Vol] 3.5 mmol/L Normal 3.5-5.1 [facility] Comment on above: Performed By: #### C MP #### [facility] [address] [address] [address] Randall Ayoub Protein [Mass/Vol] 7.0 g/dL Normal 6.4-8.2 The [facility] Comment on above: Performed By: #### C MP #### [facility] [address] [address] [address] Randall Ayoub Sodium [Moles/Vol] 143 mmol/L Normal 136-145 The [facility] Comment on above: Performed By: #### C MP #### [facility] [address] [address] [address] Randall Ayoub Urea nitrogen [Mass/Vol] 24.0 mg/dL Critically high 7.0-18.0 [facility] Comment on above: Performed By: #### C MP #### [facility] [address] [place] [address] Dr. Randall Ayoub Urea nitrogen/Creatinine [Mass ratio] 25.0 mg/mg Normal [facility] Comment on above: Performed By: #### C MP #### [facility] [address] [place] [address] Dr. Randall Ayoub SYMPTOMATIC COVID-19 ANTIGEN on 02-03-2022 EUA Statement SEE BELOW Normal [facility] Comment on above: Result Comment: This [...] sooner. Performed By: #### C VDAGS #### [facility] [address] [place] [address] Dr. Randall Ayoub SARS-CoV-2 (COVID-19) RNA SERGIO+probe Ql (Unsp spec) Negative Normal NEGATIVE [facility] Comment on above: Performed By: #### C VDAGS #### [facility] [address] [address] [address] Randall Ayoub XR CHEST 2 Von [...] with hardware partially visualized. Electronically authenticated by: [email or web address] Date: 2022-02-03 17:08 Normal [facility] Covid-19 PCR ([facility])on 12-14 SARS-CoV-2 (COVID-19) RNA SERGIO+probe Ql (Unsp spec) Not detected Normal NOT DETECTED [facility] Comment on above: Result Comment: This test is not yet approved or cleared by the [place] FDA. When there are no FDA-approved or cleared tests available, and other criteria are met, FDA can make tests available under an emergency access mechanism called an Emergency Use Authorization (EUA). The EUA for this test is supported by the [place] of Health and Human Service's (HHS's) declaration [...] SARS-CoV-2. Performed By: #### C VDTB #### [facility] [address] [address] [address] Randall Ayoub Vital Signs Date Time Vital Sign Value Performing Clinician Facility 11-16-2023 13:17-0400 Blood Pressure Location Michel FUENTESL [facility] [place] 11-16-2023 13:17-0400 Diastolic blood pressure 78 mm[Hg] Michel NILL [facility] [place] 11-16-2023 13:17-0400 Heart rate 72 /min Michel FUENTESL [facility] 11-16-2023 13:17-0400 Respiratory rate 16 /min Michel FUENTESL [facility] 11-16-2023 13:17-0400 Systolic blood pressure 118 mm[Hg] Michel NILL [facility] 10-29-2023 06:05-0400 Body temperature 97.9 [degF] MD Donna Herrera Work Phone: [facility] 10-29-2023 06:05-0400 Diastolic blood pressure 74 mm[Hg] MD Donna Herrera Work Phone: [facility] 10-29-2023 06:05-0400 Heart rate 72 /min MD Donna Herrera Work Phone: [facility] 10-29-2023 06:05-0400 Respiratory rate 16 /min MD Donna Herrera Work Phone: [facility] 10-29-2023 06:05-0400 SaO2% (BldA) [Mass fraction] 98 % MD Donna Herrera Work Phone: [facility] 10-29-2023 06:05-0400 Systolic blood pressure 124 mm[Hg] MD Donna Herrera Work Phone: [facility] 10-28-2023 09:50-0400 Body height 172.72 cm MD Donna Herrera Work Phone: [facility] 10-27-2023 14:36-0400 Body weight 90 kg MD Donna Herrera Work Phone: [facility] 10-08-2023 13:45-0500 Body height 172.7 cm [facility] 10-08-2023 13:45-0500 Body mass index (BMI) [Ratio] 30.77 kg/m2 [facility] 10-08-2023 13:45-0500 Body temperature 97.7 [degF] [facility] 10-08-2023 13:45-0500 Body weight 91.8 kg [facility] 10-08-2023 13:45-0500 Diastolic blood pressure 81 mm[Hg] [facility] [facility] 10-08-2023 13:45-0500 Heart rate 74 /min Metro 5 [facility] 10-08-2023 13:45-0500 Respiratory rate 18 /min Metro 5 [facility] 10-08-2023 13:45-0500 SaO2% (BldA) [Mass fraction] 93 % Metro 5 [facility] 10-08-2023 13:45-0500 Systolic blood pressure 125 mm[Hg] Metro 5 [facility] 09-23-2023 11:38-0500 Body height 172.7 cm Charles Tim MUSIC MINISTRIES DIRECTOR-FPGA DESIGN ENGINEER Work Phone: [facility] 09-23-2023 11:38-0500 Body mass index (BMI) [Ratio] 30.41 kg/m2 Charles Tim MUSIC MINISTRIES DIRECTOR-FPGA DESIGN ENGINEER Work Phone: [facility] 09-23-2023 11:38-0500 Body weight 90.72 kg Charles Tim MUSIC MINISTRIES DIRECTOR-FPGA DESIGN ENGINEER Work Phone: [facility] 09-02-2023 09:59-0500 Body height 172.7 cm Charles Tim MUSIC MINISTRIES DIRECTOR-FPGA DESIGN ENGINEER Work Phone: [facility] 09-02-2023 09:59-0500 Body mass index (BMI) [Ratio] 30.41 kg/m2 Charles Tim MUSIC MINISTRIES DIRECTOR-FPGA DESIGN ENGINEER Work Phone: [facility] [employer] [facility] 09-02-2023 09:59-0500 Body weight 90.72 kg Charles Tim MUSIC MINISTRIES DIRECTOR-FPGA DESIGN ENGINEER Work Phone: [facility] [employer] [facility] 09-02-2023 09:59-0500 Diastolic blood pressure 77 mm[Hg] Charles Tim MUSIC MINISTRIES DIRECTOR-FPGA DESIGN ENGINEER Work Phone: [facility] [employer] [facility] 09-02-2023 09:59-0500 Heart rate 74 /min Charles Tim MUSIC MINISTRIES DIRECTOR-FPGA DESIGN ENGINEER Work Phone: [facility] [employer] [facility] 09-02-2023 09:59-0500 Systolic blood pressure 115 mm[Hg] Charles Tim MUSIC MINISTRIES DIRECTOR-FPGA DESIGN ENGINEER Work Phone: [facility] 08-19-2023 13:20-0500 Body height 172.7 cm Xu Troy PA Work Phone: [facility] [employer] [facility] 08-19-2023 13:20-0500 Body mass index (BMI) [Ratio] 31.32 kg/m2 Xu Troy PA Work Phone: [facility] [employer] [facility] 08-19-2023 13:20-0500 Body weight 93.44 kg Xu Troy PA Work Phone: [facility] [employer] [facility] 08-19-2023 13:20-0500 Diastolic blood pressure 87 mm[Hg] Xu Troy PA Work Phone: [facility] [employer] [facility] 08-19-2023 13:20-0500 Heart rate 81 /min Xu Corienberg PA Work Phone: [facility] [employer] [facility] 08-19-2023 13:20-0500 Respiratory rate 18 /min Xu Nienberg PA Work Phone: [facility] [employer] [facility] 08-19-2023 13:20-0500 SaO2% (BldA) [Mass fraction] 98 % Xu Troy PA Work Phone: [facility] [employer] [facility] 08-19-2023 13:20-0500 Systolic blood pressure 142 mm[Hg] Xu PORRAS Work Phone: [employer] 05-25-2023 09:40-0400 Body height 175.26 cm Trino Cadet Other [employer] Other 05-25-2023 09:40-0400 Body mass index (BMI) [Ratio] 29.83 kg/m2 Trino Cadet Other [employer] Other 05-25-2023 09:40-0400 Body weight 91.63 kg Trino Cadet Other [employer] Other 09-15-2022 15:40-0500 Body height 175.26 cm Trinoaparna Cadet Other [employer] Other 09-15-2022 15:40-0500 Body mass index (BMI) [Ratio] 30.27 kg/m2 Trinoaparna Cadet Other [employer] Other 09-15-2022 15:40-0500 Body weight 92.99 kg Trino Cadet Other [employer] Other 09-15-2022 15:40-0500 Diastolic blood pressure 70 mm[Hg] Trinoaparna Cadet Other [employer] Other 09-15-2022 15:40-0500 Systolic blood pressure 116 mm[Hg] Trinoaparna Cadet Other [employer] Other 08-04-2022 12:20-0500 Body height 175.26 cm Trinoaparna Cadet Other [employer] Other 08-04-2022 12:20-0500 Body mass index (BMI) [Ratio] 30.27 kg/m2 Trino Cadet Other [employer] Other 08-04-2022 12:20-0500 Body weight 92.99 kg Trino Cadet Other [employer] Other 08-05-2021 12:20-0500 Body height 175.26 cm Trino Cadet Other [employer] Other 08-05-2021 12:20-0500 Body mass index (BMI) [Ratio] 30.27 kg/m2 Trino Cadet Other [employer] Other 08-05-2021 12:20-0500 Body weight 92.99 kg Trino Cadet Other [employer] Other Encounters Encounter Date Encounter Type Care Provider Facility Start: 12-29-2023 End: 12-30-2023 ambulatory Michel ROBBINS Facility:[facility] Start: 12-29-2023 End: 12-29-2023 Patient encounter procedure Michel ROBBINS [facility] [place] Start: 12-22-2023 End: 12-22-2023 ambulatory Michel Robbins Facility:[facility] Start: 12-22-2023 End: 12-23-2023 ambulatory MD Donna Herrera Work Phone: [facility] Work Phone: Start: 12-22-2023 End: 12-22-2023 Departed Referred MD Donna Herrera Work Phone: [facility]-LAB [facility] [place] [facility] Start: 12-08-2023 [facility] Start: 12-02-2023 End: 12-02-2023 ambulatory DONNA HERRERA [facility] Start: 11-16-2023 End: 11-17-2023 ambulatory Michel ROBBINS Facility:[facility] Start: 11-16-2023 End: 11-16-2023 Patient encounter procedure Michel ROBBINS [facility] Start: 11-04-2023 End: 11-04-2023 ambulatory [facility] Start: 10-28-2023 Non-patient / Non-visit MD Marry Herrera Work Phone: [facility] Work Phone: Start: 10-28-2023 End: 10-29-2023 Non-patient / Non-visit MD Donna Herrera Work Phone: [facility] Work Phone: Start: 10-27-2023 End: 10-29-2023 Evaluation and management of inpatient DONNA Blanchard [facility] Start: 10-27-2023 End: 10-29-2023 Evaluation and management of inpatient MD Donna Herrera Work Phone: [facility] Work Phone: Start: 10-23-2023 End: 10-27-2023 ambulatory MARVA AGUAYO [facility] Start: 10-22-2023 End: 10-27-2023 Evaluation and management of inpatient [facility] Start: 10-22-2023 End: 10-27-2023 Evaluation and management of inpatient [facility] Start: 10-08-2023 End: 10-08-2023 ambulatory [facility] Start: 10-08-2023 Telephone encounter Radha Bustillos RN [facility] Start: 10-08-2023 End: 10-08-2023 Patient encounter procedure Stanislav Olivo [facility] [place] Comment on above: Spinal stenosis of l umbar region with neurogenic claudication Start: 10-07-2023 ambulatory Michel ROBBINS Facility:[facility] Start: 09-23-2023 End: 09-24-2023 ambulatory [facility] Start: 09-23-2023 Encounter for other preprocedural examination DARRELL OLSEN [facility] Start: 09-23-2023 End: 09-23-2023 ambulatory DONNA HERRERA [facility] Start: 09-23-2023 Encounter for other preprocedural examination [facility] Start: 09-23-2023 End: 09-23-2023 Office outpatient new 60 minutes Charles Tim MUSIC MINISTRIES DIRECTOR-FPGA DESIGN ENGINEER Work Phone: [facility] Comment on above: Spinal stenosis of l umbar region with neurogenic claudication (Primary Dx); Pre-op testing; Radiculopathy, lumbar region Start: 09-23-2023 End: 09-23-2023 Patient encounter status Charles Tim MUSIC MINISTRIES DIRECTOR-FPGA DESIGN ENGINEER Work Phone: [facility] Start: 09-16-2023 Refill Kathy Ziegler CNA [facility] Comment on above: Disorder of sacrum Start: 09-09-2023 End: 09-10-2023 ambulatory [facility] Start: 09-02-2023 End: 09-03-2023 ambulatory [facility] Start: 09-02-2023 End: 09-02-2023 Office outpatient new 45 minutes Charles Tim MUSIC MINISTRIES DIRECTOR-FPGA DESIGN ENGINEER Work Phone: [facility] Comment on above: Spinal stenosis of l umbar region with neurogenic claudication (Primary Dx); History of lumbar fusion; Radiculopathy, lumbar region; Lumbar radiculopathy Start: 08-19-2023 End: 08-19-2023 ambulatory XU TROY [facility] Start: 08-19-2023 End: 08-19-2023 Office outpatient visit 15 minutes Xu Troy PA Work Phone: [facility] Comment on above: Spinal stenosis of l umbar region with neurogenic claudication (Primary Dx) Start: 08-18-2023 End: 08-18-2023 ambulatory FITZ CARRASQUILLO [facility] Start: 08-03-2023 End: 08-04-2023 ambulatory XU TROY [facility] Start: 05-25-2023 End: 05-25-2023 ambulatory Trino Cadet Other [employer] Other Start: 05-25-2023 Office outpatient vi sit 15 minutes Trino Cadet [facility] Start: 05-24-2023 End: 05-24-2023 ambulatory Trino Cadet Facility:[facility] Start: 05-24-2023 End: 05-24-2023 ambulatory MD Donna Herrera Work Phone: [facility] Work Phone: Start: 05-24-2023 End: 05-24-2023 Patient encounter procedure MD Donna Herrera Work Phone: [facility] Work Phone: Start: 09-15-2022 End: 09-15-2022 ambulatory Trino Cadet Other [employer] Other Start: 09-15-2022 Office outpatient vi sit 15 minutes Trino Cadet [facility] Start: 09-08-2022 Encounter for genera l adult medical examination without abnormal findings DR DONNA HERRERA [facility] Start: 09-03-2022 End: 09-04-[address] DONNA HERRERA Facility:[facility] Start: 09-03-2022 End: 09-04-2022 Encounter for general adult medical examination without abnormal findings DR DONNA HERRERA Facility:[facility] Start: 08-04-2022 End: 08-04-2022 ambulatory Trino Cadet Other [employer] Other Start: 08-04-2022 Office outpatient vi sit 15 minutes Trino Cadet [facility] Start: 02-03-2022 End: 02-03-[address] DONNA HERRERA Facility:[facility] Start: 02-03-2022 End: 02-03-[address] DONNA HERRERA Facility:[facility] Start: 01-01-2022 End: 01-01-[address] DONNA HERRERA Facility:[facility] Start: 08-05-2021 End: 08-05-2021 ambulatory Trino Cadet Other [facility] [employer] Other Start: 08-05-2021 Office outpatient vi sit 15 minutes Trino Cadet [facility] Procedures Date Procedure Procedure Detail Performing Clinician Start: 12-22-2023 Colonoscopy Michel ROBBINS Start: 12-22-2023 Esophagogastroduodenoscopy Michel ROBBINS Start: 10-08-2023 Antibody screen Metro 5 Start: 10-08-2023 Blood typing serologic abo Darrell Jacinto rd, MD Work Phone: Start: 10-08-2023 REPEATED ABORH Darrell Olsen MD Work Phone: Start: 10-08-2023 Basic metabolic panel calcium total Darrell Olsen MD Work Phone: Start: 10-08-2023 Ecg routine ecg w/least 12 lds trcg only w/o i&r Darrell Olsen MD Work Phone: Start: 10-08-2023 Culture bacterial quanttative colony count urine Darrell Olsen MD Work Phone: Start: 10-08-2023 Urnls dip stick/tablet rgnt auto w/o microscopy Darrell Olsen MD Work Phone: Start: 09-23-2023 Follow-up visit Follow-up CHARLES TIM Start: 05-24-2023 X-ray of lumbar spine, four views MD Marry Herrera Work Phone: Start: 09-03-[address] DONNA HERRERA Comment on above: Performed By: #### [facility] #### [facility] [address] [place] [address] Dr. Randall Ayoub Arthroscopy of shoulder Keron aefantasma NILFantasma History of lumbar laminectomy Michel FUENTESL History of repair of musculotendinous cuff of shoulder Trino Cadet Other Laser assisted in si tu keratomileusis Michel FUENTESFantasma Lumbar spinal fusion Michel FUENTESFantasma Plan of Treatment Date Care Activity Detail Author Start: 01-01-2032 DTaP,Tdap and Td Vaccines (3 - Td or Tdap) DTaP,Tdap and Td Vaccines (3 - Td or Tdap) [facility] Start: 09-23-2024 Adult BMI Screening Adult BMI Screen [facility] Start: 09-23-2024 Tobacco Screening Tobacco Screening [facility] Start: 09-02-2024 Adult BMI Screening Adult BMI Screen [facility] Start: 09-02-2024 Tobacco Screening Tobacco Screening [facility] Start: 08-19-2024 Adult BMI Screening Adult BMI Screen [facility] Start: 08-19-2024 Tobacco Screening Tobacco Screening [facility] Start: 12-02-2023 End: 12-02-2023 Patient encounter procedure 12/02/2023 3:00 PM EDT Office Visit [facility] [address] [place] [address] [phone] Darrell Olsen MD [address] [place] [phone] [facility] Start: 10-29-2023 [facility] Start: 10-27-2023 Hospital admission [facility] Start: 10-27-2023 Referral to clinical filing or registry clerk [facility] Start: 10-22-2023 End: 10-22-2023 Admission to same day surgery center 10/22/2023 7:30 AM EST - 10/22/2023 9:15 AM EST Surgery [facility] - Surgery [address] [place] [phone] Darrell Olsen MD [address] [place] [address] [address] [place] [phone] LAMINECTOMY LUMBAR SINGLE LEVEL / L1-L2 [facility] Comment on above: LAMINECTOMY LUMBAR S RICHMOND LEVEL / L1-L2 Start: 10-22-2023 End: 10-22-2023 LAMINECTOMY LUMBAR SINGLE LEVEL LAMINECTOMY LUMBAR SINGLE LEVEL Spinal stenosis of lumbar region with neurogenic claudication 10/22/2023 7:30 AM EST [facility] Start: 10-22-2023 Subsequent hospital visit by physician 10/22/2023 7:30 AM EST Hospital Encounter [facility] [address] [place] [phone] Darrell Olsen MD [address] [place] [phone] [facility] Start: 10-08-2023 End: 10-08-2023 Patient encounter procedure 10/08/2023 1:15 PM EST Procedure visit [facility] [address] [phone] [facility] Start: 09-23-2023 End: 09-23-2023 Patient encounter procedure 09/23/2023 11:50 AM EST Office Visit [facility] [address] [place] [phone] Darrell Olsen MD [address] [place] [phone] [facility] Start: 09-02-2023 End: 09-02-2024 XR Lumbar spine Views AP W right bending and W left bending [facility] Work Phone: Comment on above: Expected: 09/02/2023 , Expires: 09/02/2024 Start: 09-02-2023 End: 09-02-2023 Patient encounter procedure 09/02/2023 10:15 AM EST Office Visit [facility] [address] [place], [place] [phone] Darrell Olsen MD [address] [facility] [address] [place] [phone] [facility] Start: 1987 Adult BMI Follow Up Plan Adult BMI Follow Up Plan [employer] Start: 1981 Depression Screening Depression Scre ening [employer] End: 09-01-2024 CT Lumbar spine WO contrast CT lumbar spine without contrast Imaging Routine Spinal stenosis of lumbar region with neurogenic claudication History of lumbar fusion Radiculopathy, lumbar region Lumbar radiculopathy 1 Occurrences starting 09/02/2023 until 09/01/2024 [employer] Comment on above: 1 Occurrences starti ng 09/02/2023 until 09/01/2024 Patient Education Spinal Stenosi s (DC) Spinal Fusion (DC) [facility] Work Phone: Patient referral [facility] Work Phone: Immunizations Immunization Date Immunization Notes Care Provider Fa cili 05-19-2023 influenza virus vaccine, unspecified formulation iMchel ROBBINS [facility] [place] 04-28-2022 SARS-CoV-2 (COVID-19 ) [id number] Michel ROBBINS [facility] [place] 08-04-2021 SARS-CoV-2 (COVID-19 ) mRNA BNT-162b2 vax Michel ROBBINS [facility] [place] 11-16-2020 SARS-CoV-2 (COVID-19 ) mRNA BNT-162b2 vax Michel ROBBINS [facility] [place] 10-26-2020 SARS-CoV-2 (COVID-19 ) mRNA BNT-162b2 vax Michel ROBBINS [facility] [place] Payers Date Payer Category Payer Medicare [id number] 2023 Medicare [id number] 2023 Unknown [employer] [id number] 2023-Present [phone] [address] [place] [address] [id number] 2023 Self-pay [id number] 1969 Unknown [id number] 2.16.840.1.471776.3.579.2 .593 1969 Unknown [id number] 2.16.840.1.142926.3.579.2 .593 1969 Unknown [id number] 2.16.840.1.764936.3.579.2 .593 1969 Unknown [id number] 2.16.840.1.152454.3.579.2 .593 1969 Unknown [id number] 2.16.840.1.523240.3.579.2 .1286 1969 Unknown [id number] 2.16.840.1.677641.3.579.2 .1286 1969 Unknown [id number] 2.16.840.1.297540.3.579.2 .1286 1969 Unknown [id number] 2.16.840.1.075866.3.579.2 .1286 1969 Unknown [id number] 2.16.840.1.679766.3.579.2 .1286 1969 Unknown [id number] 2.16.840.1.290898.3.579.2 .1286 1969 Unknown [id number] 2.16.840.1.624320.3.579.2 .1286 1969 Unknown [id number] 2.16.840.1.332034.3.579.2 .1286 1969 Unknown [id number] 2.16.840.1.572785.3.579.2 .1286 1969 Unknown [id number] 2.16.840.1.867506.3.579.2 .1285 1969 Unknown [id number] 2.16.840.1.868845.3.579.2 .1286 1969 Unknown [id number] 2.16.840.1.024102.3.579.2 .1285 1969 Unknown [id number] 2.16.840.1.513405.3.579.2 .128 1969 Unknown [id number] 2.16.840.1.499435.3.579.2 .1285 1969 Unknown [id number] 2.16.840.1.323346.3.579.2 .1285 1969 Unknown [id number] 2.840.1.226539.3.579.2 .128 1969 Unknown [id number] 2.16.840.1.144631.3.579.2 .128 1969 Unknown [id number] 2.16.840.1.764033.3.579.2 .727 1969 Unknown [id number] 2.16.840.1.314740.3.579.2 .727 1969 Unknown [id number] 2.16840.1.136201.3.579.2 .727 1959 Unknown [id number] Private Health Insurance [id number] 2.16.840.1.250309.19 Unknown [id number] 2.16.840.1.912714.3.579.2 .531 Unknown [id number] 2.16.840.1.603111.3.579.2 .531 Unknown [id number] 2.16.840.1.638595.3.579.2 .531 Social History Date Type Detail Facility Start: 09-26-2020 End: 08-19-2023 Sex Assigned At [facility] Start: 05-29-2020 End: 11-16-2023 Tobacco smoking status NHIS Never smoked tobacco (finding) [facility] Start: 1970 Sex Assigned At Male F [facility] Start: 06-04-2022 End: 10-08-2023 Tobacco use and exposure Former smokeless tobacco user [facility] Start: 08-19-2023 End: 10-08-2023 Alcohol intake Ex-drinker (finding) [facility] Start: 09-26-2020 End: 08-19-2023 History of Social function [facility] Housing Instability Unknown [facility] Start: 01-24-2018 Alcohol Comment stopped 18 months ag o [facility] Start: 1970 Sex Assigned At Not on file P [facility] End: 08-16-1996 History of tobacco use Chews Tobacco [facility] Medical Equipment Procedure Code Equipment Code Equipment Origin al Text Equipment Identifier Dates Fusion, spine, lumbar, XLIF CANCELLOUS 7.5 CRUSHED FDA Start: 05-29-2020 Fusion, spine, lumbar, XLIF Bone-screw internal spinal fixation system, non-sterile [id number] FDA Start: 05-29-2020 Fusion, spine, lumbar, XLIF CANCELLOUS COARSE 7.5CC FDA Start: 05-29-2020 Fusion, spine, lumbar, XLIF Orthopaedic bone screw, non-bioabsorbable, non-sterile [id number] FDA Start: 05-29-2020 Fusion, spine, lumbar, XLIF Orthopaedic bone screw, non-bioabsorbable, non-sterile +[id number] FDA Start: 05-29-2020 Fusion, spine, lumbar, XLIF STRATOFUSE DBM 10CC FDA Start: 05-29-2020 Fusion, spine, lumbar, XLIF Bone-screw internal spinal fixation system, non-sterile [id number] FDA Start: 05-29-2020 Fusion, spine, lumbar, XLIF Bone-screw internal spinal fixation system, non-sterile [id number] FDA Start: 05-29-2020 Fusion, spine, lumbar, XLIF STRATOFUSE DBM 5CC FDA Start: 05-29-2020 Fusion, spine, lumbar, XLIF Spinal fusion graft kit [id number] FDA Start: 05-29-2020 Fusion, spine, lumbar, XLIF Metallic spinal fusion cage, non-sterile ()[id number] FDA Start: 05-29-2020 Fusion, spine, lumbar, XLIF Metallic spinal fusion cage, non-sterile [id number] FDA Start: 05-29-2020 Fusion, spine, lumbar, XLIF Polymeric spinal interbody fusion cage ()[id number] FDA Start: 05-29-2020 Fusion, spine, lumbar, XLIF [...] Start: 05-29-2020 Kt Repr Shldr Ea=Bill-Only - [id number] - [id number] Start: 06-07-2018 Goals Date Patient Goal Desired Activity /State Functional Status Date Assessment Result Facility 11-16-2023 Functional Status N/A General [facility] [place] 10-27-2023 Functional status Patient Not at Baseline [facility] Work Phone: Mental Status Date Assessment Result Facility 10-27-2023 Cognitive function Cognitive Sta tus Patient Not at Baseline [facility] Work Phone: Clinical Notes 06-07-2018 to [...] (less than 10 (more content not included)... [facility] Comment on above: Result Comment: Elec tronically Signed By: ROSENDO OROURKE, Michel Sue\Date and Time Signed: 11/16/23 13:49 EDT 10-28-2023 History and physi brigido note Note Date/Time October 28, 2023 10:24am [facility] [address] [place] [address] Physiatry (Rehab) H&P Signed Patient: Celestino Ziegler MR#: [id number] : 1970 Acct:[id number] Age/Sex: 53 / M Adm Date: 4 Loc: Room: 5J2460-3 Type: ADM IN Attending Dr: Qasim Mancilla MD Copies to: MD Donna Mcmanus MD~ Date of Service: 10/28/2023 HPI History of Present Illness: Mr. Ziegler is a 53 year old male with past medical history of lumbar spinal stenosis with neurogenic claudication who [facility] to [facility] for elective L1-L2 decompressive laminectomy [...] independent. Patient hopeful to go home soon. [facility] Medical History (Updated 10/28/23 @ 12:47 by Qasim Mancilla MD) Lumbar spinal stenosis History of ETOH abuse sober since 2015 Problem List clean-up per request of Phys. EHR Cmte Asthma Problem List clean-up per request of Phys. EHR Cmte DDD (degenerative disc disease) Problem List clean-up per request of Phys. EHR Cmte Anxiety Problem List clean-up per request of Phys. [facility] History (Updated 10/28/23 @ 12:47 by Qasim Mancilla MD) History of selective injection of anesthetic agent around lumbar nerve root Problem List clean-up per request of Phys. EHR Cmte Hx of LASIK Problem List clean-up per request of Phys. EHR [facility] History of repair of rotator cuff left shoulder Problem List clean-up per request of Phys. [facility]HR [facility] Family History Father Hypertension Mother Diabetes mellitus, type 2 Father Diabetes mellitus, type 2 Father Hypertension Mother Diabetes Social History Smoking Status: Never smoker Substance Use Type: Marijuana Substance Abuse Comment: sober since 2015 Review of Systems Review of Systems All [...] mcg/actuation aerosol inhaler (ProAir HFA) 2 inh [id number] PRN shortness of breath or wheezing 10/27/23 [...] Bisacodyl (Bisacodyl 10 Mg Supp.Rect) 10 mg DC DAILY PRN PRN Reason: Constipation Stop: 10/26/24 14:24 Budesonide/Formoterol Fumarate (Budesonide/Formoterol 160-4.5 Mcg 60 Puff/6 Gm Hfa.Aer.Ad) 2 puff INHALATION BID KYAAR Stop: 10/26/24 20:59 Last Admin: 10/28/23 05:56 Dose: 2 puff Cyclobenzaprine HCl (Cyclobenzaprine 5 Mg Tablet) 5 mg PO TID PRN PRN Reason: back spasms Stop: 10/26/24 15:02 Dexamethasone (Dexamethasone 2 Mg Tablet) 2 mg PO Q8H [facility]; Taper Stop: 11/06/23 21:59 Last Admin: 10/28/23 06:32 Dose: 2 mg Diazepam (Diazepam 2 Mg Tablet) 2 mg PO Q6HR PRN PRN Reason: anxiety Stop: 04/24/24 15:02 Docusate Sodium (Docusate 100 Mg Capsule) 100 mg PO BID PRN PRN Reason: Constipation Stop: 10/26/24 14:24 Docusate Sodium (Docusate Enema 283 Mg/5 Ml Enema) 283 mg DC DAILY PRN PRN Reason: Constipation Stop: 10/26/24 14:24 Famotidine (Famotidine 20 Mg Tablet) 20 mg PO BID [facility] Stop: 10/26/24 20:59 Last Admin: 10/28/23 09:25 Dose: 20 mg Fluoxetine HCl (Fluoxetine 20 Mg Capsule) 40 mg PO QAM [facility] Stop: 10/27/24 08:59 Last Admin: 10/28/23 09:25 Dose: 40 mg Gabapentin (Gabapentin 800 Mg Tablet) 800 mg PO TID [facility] Stop: 10/26/24 21:59 Last Admin: 10/28/23 09:25 Dose: 800 mg Heparin Sodium (Porcine) (Heparin 5,000 Unit/Ml Vial) 5,000 unit SUBCUT Q8HR [facility] Stop: 10/28/24 21:59 Lactulose (Lactulose 20 Gm/30 Ml Udc) 30 gm PO DAILY PRN PRN Reason: Constipation Stop: 10/26/24 14:24 Liothyronine Sodium (Liothyronine 5 Mcg Tablet) 5 mcg PO DAILY [facility] Stop: 10/27/24 08:59 Last Admin: 10/28/23 09:25 Dose: 5 mcg Loratadine (Loratadine 10 Mg Tablet) 10 mg PO DAILY [facility] Stop: 10/27/24 08:59 Last Admin: 10/28/23 09:25 Dose: 10 mg Multivitamins (Multivitamin 1 Tab Tablet) 1 tab PO DAILY@1200 [facility] Stop: 10/27/24 11:59 Oxycodone HCl (Oxycodone Ir [...] % (Auto) 61.0 Lymph % (Auto) 28.7 Robeson % (Auto) 9.6 Eos % (Auto) 0.4 Baso % (Auto) 0.3 Nucleat RBC Rel Count 0.1 Neut # (Auto) 4.5 Lymph # (Auto) 2.1 Robeson # (Auto) 0.7 Eos # (Auto) 0.0 [...] 24 hour daily monitoring and intervention from Audio Visual Aids Director as well as other consulting physicians including internal medicine as well as 24 hour daily supply chain generalist nursing - for medical safe / optimal [...] a 53-year-old male with who presents to [facility] due to functional decline in [...] equipment to enhance the patient's a functional mandaen -Encourage deep breathing exercises and incentive spirometry [...] chart, including current orders, allied health and learning and development consultant notes, labs/imaging and performed butt elements of exam and I formulated the plan of care and facilitated the medical decision making. I completed a substantive portion of this encounter, the medical decision makingportion of this note in its entirety, including Allied health note review, nursing note review, learning and development consultant note review, discussion with nursing and case management, and more than 50% of my time was spent on counseling and coordination of care, time spent 75 minutes Documented By: Qasim Mancilla MD [id number] Signed By: <Electronically signed by Qasim Mancilla MD> 10/28/23 90[address] [facility] Work Phone: [phone]) 296-789402-23-2024 Miscellaneous Notes* Telephone Encounter - Radha Bustillos RN - 10/08/2023 4:01 PM EST PTT of 40 called from lab. 10/22/23 LAMINECTOMY LUMBAR SINGLE LEVEL / L1-L2 documented in this encounterUniversity [facility]24 Telephone encounter Note* Telephone Encounter - Radha Bustillos RN - 10/08/2023 4:01 PM EST PTT of 40 called from lab. 10/22/23 LAMINECTOMY LUMBAR SINGLE LEVEL / L1-L2 [facility]02-23-2024 History and physical note* Beata Esteban, MUSIC MINISTRIES DIRECTOR-FPGA DESIGN ENGINEER - 10/08/2023 1:15 PM EST PRE-ADMISSION TESTING HISTORY AND PHYSICAL EXAM DATE: 10/08/23 PCP: DONNA HERRERA MD CHIEF COMPLAINT: Spinal stenosis of lumbar region with neurogenic claudication HISTORY OF PRESENT ILLNESS: Celestino Ziegler, a 53 y.o. White or male, presents to [facility] for a pre-surgical H&P. The patient has been diagnosed with spinal stenosis of lumbar region with neurogenic claudication. He reports he has dealt with back pain since he was young, but it has gradually gotten worse. 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 He rates his pain [...] HISTORY: Past Medical History: Diagnosis Date Alcoholism ([facility]) Anemia Asthma Back pain Chronic pain disorder Cough Environmental allergies Hypertension history of this, not currently treated Hypothyroidism Low back pain Neck pain Spinal stenosis of lumbar region with neurogenic claudication Visual impairment lasik PAST SURGICAL HISTORY: Past Surgical History: Procedure Laterality Date ARTHROSCOPY REPAIR LESION SUPERIOR LABRUM EXTENDING FROM ANTERIOR TO POSTERIOR (SLAP) SHOULDER Left06/07/2018 Performed by Jr Christian Estrada DO at [facility] ARTHROSCOPY REPAIR ROTATOR CUFF SHOULDER Left 06/07/2018 Performed by Jr Christian Estrada DO at [facility] ARTHROSCOPY SHOULDER Left 06/07/2018 Performed by Jr Christian Estrada DO at [facility] INJECTION BLOCK SACROILIAC JOINT Bilateral 06/04/2023 Performed by aDve Garcia MD at [facility] BLOCK SACROILIAC JOINT Bilateral 03/19/2023 Performed by Dave Garcia MD at [facility] INJECTION BLOCK SACROILIAC JOINT Bilateral 01/15/2023 Performed by Dave Garcia MD at [facility] BLOCK SACROILIAC JOINT Bilateral 09/04/2022 Performed by Dave Garcia MD at [facility] BLOCK SACROILIAC JOINT Right 05/22/2022 Performed by Dave Garcia MD at [facility] BLOCK SACROILIAC JOINT Bilateral 02/20/2022 Performed by Dave Garcia MD at [facility] BLOCK SACROILIAC JOINT Bilateral 10/20/2021 Performed by Dave Garcia MD at [facility] BLOCK SACROILIAC JOINT Bilateral 12/13/2020 Performed by Dave Garcia MD at [facility] INJECTION BURSA LARGE JOINT Right hip intra-articular Right 02/21/2021 Performed by Dave Garcia MD at [facility] BURSA LARGE JOINT: right hip Right 03/27/2022 Performed by Dave Garcia MD at [facility] CAUDAL EPIDURAL WITH CATHETER, STEROID N/A 02/23/2020 Performed by Dave Garcia MD at [facility] CAUDAL EPIDURAL WITH CATHETER, STEROID N/A 01/15/2020 Performed by Dave Garcia MD at [facility] CAUDAL EPIDURAL WITH CATHETER, STEROID N/A 06/23/2019 Performed by Dave Garcia MD at [facility] CAUDAL EPIDURAL WITH CATHETER, STEROID N/A 05/05/2019 Performed by Dave Garcia MD at [facility] CAUDAL EPIDURAL WITH CATHETER, STEROID N/A 08/12/2018 Performed by Dave Garcia MD at [facility] CAUDAL EPIDURAL WITH CATHETER, STEROID 1 of 2 N/A 01/28/2018 Performed by Dave Garcia MD at [facility] CAUDAL EPIDURAL WITH CATHETER, STEROID 2 of 2 N/A 02/11/2018 Performed by Dave Garcia MD at [facility] SPINE TRANSFORAMINAL Left L 1,2 Nroot Left 01/24/2021 Performed by Dave Garcia MD at [facility] SPINE TRANSFORAMINAL: left L 1,2 nroot Left 04/17/2022 Performed by Dave Garcia MD at [facility] SPINE TRANSFORAMINAL: right L 1,2 nroot Right 04/16/2023 Performed by Dave Garcia MD at [facility] LUMBAR FUSION 2019 L2-S1 REFRACTIVE SURGERY [...] the most recent lab values available in [facility] at the time ofthe office visit and additional labs may have been drawn since that time. ASSESSMENT / DIAGNOSIS: Spinal stenosis of lumbar region with neurogenic claudication PLAN: Celestino Santoyoben Ziegler is scheduled for Laminectomy Lumbar Single Level / L1-L2 with Dr. Olsen on 10/22/23. Beata Esteban APRN-DEX 10/08/23 14[address] [employer] [facility] Work Phone: [phone]) 357-510602-23-2024 History and physical note* Beata Esteban, MUSIC MINISTRIES DIRECTOR-FPGA DESIGN ENGINEER - 10/08/2023 1:15 PM EST PRE-ADMISSION TESTING HISTORY AND PHYSICAL EXAM DATE: 10/08/23 PCP: DONNA HERRERA MD CHIEF COMPLAINT: Spinal stenosis of lumbar region with neurogenic claudication HISTORY OF PRESENT ILLNESS: Celestino Ziegler, a 53 y.o. White or male, presents to [facility] for a pre-surgical H&P. The patient has been diagnosed with spinal stenosis of lumbar region with neurogenic claudication. He reports he has dealt with back pain since he was young, but it has gradually gotten worse. 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 He rates his pain [...] HISTORY: Past Medical History: Diagnosis Date Alcoholism ([facility]) Anemia Asthma Back pain Chronic pain disorder Cough Environmental allergies Hypertension history of this, not currently treated Hypothyroidism Low back pain Neck pain Spinal stenosis of lumbar region with neurogenic claudication Visual impairment lasik PAST SURGICAL HISTORY: Past Surgical History: Procedure Laterality Date ARTHROSCOPY REPAIR LESION SUPERIOR LABRUM EXTENDING FROM ANTERIOR TO POSTERIOR (SLAP) SHOULDER Left06/07/2018 Performed by Jr Christian Estrada DO at [facility] ARTHROSCOPY REPAIR ROTATOR CUFF SHOULDER Left 06/07/2018 Performed by Jr Christian Estrada DO at [facility] ARTHROSCOPY SHOULDER Left 06/07/2018 Performed by Jr Christian Estrada DO at [facility] INJECTION BLOCK SACROILIAC JOINT Bilateral 06/04/2023 Performed by Dave Garcia MD at [facility] BLOCK SACROILIAC JOINT Bilateral 03/19/2023 Performed by Dave Garcia MD at [facility] BLOCK SACROILIAC JOINT Bilateral 01/15/2023 Performed by Dave Garcia MD at [facility] IN[facility] BLOCK SACROILIAC JOINT Bilateral 09/04/2022 Performed by Dave Garcia MD at [facility] BLOCK SACROILIAC JOINT Right 05/22/2022 Performed by Dave Garcia MD at [facility] BLOCK SACROILIAC JOINT Bilateral 02/20/2022 Performed by Dave Garcia MD at [facility] BLOCK SACROILIAC JOINT Bilateral 10/20/2021 Performed by Dave Garcia MD at [facility] BLOCK SACROILIAC JOINT Bilateral 12/13/2020 Performed by Dave Garcia MD at [facility] INJECTION BURSA LARGE JOINT Right hip intra-articular Right 02/21/2021 Performed by Dave Garcia MD at [facility] BURSA LARGE JOINT: right hip Right 03/27/2022 Performed by Dave Garcia MD at [facility] CAUDAL EPIDURAL WITH CATHETER, STEROID N/A 02/23/2020 Performed by Dave Garcia MD at [facility] CAUDAL EPIDURAL WITH CATHETER, STEROID N/A 01/15/2020 Performed by Dave Garcia MD at [facility] CAUDAL EPIDURAL WITH CATHETER, STEROID N/A 06/23/2019 Performed by Dave Garcia MD at [facility] CAUDAL EPIDURAL WITH CATHETER, STEROID N/A 05/05/2019 Performed by Dave Garcia MD at [facility] CAUDAL EPIDURAL WITH CATHETER, STEROID N/A 08/12/2018 Performed by Dave Garcia MD at [facility] CAUDAL EPIDURAL WITH CATHETER, STEROID 1 of 2 N/A 01/28/2018 Performed by Dave Garcia MD at [facility] CAUDAL EPIDURAL WITH CATHETER, STEROID 2 of 2 N/A 02/11/2018 Performed by Dave Garcia MD at [facility] INJECTION SPINE TRANSFORAMINAL Left L 1,2 Nroot Left 01/24/2021 Performed by Dave Garcia MD at [facility] INJECTION SPINE TRANSFORAMINAL: left L 1,2 nroot Left 04/17/2022 Performed by Dave Garcia MD at [facility] INJECTION SPINE TRANSFORAMINAL: right L 1,2 nroot Right 04/16/2023 Performed by Dave Garcia MD at [facility] LUMBAR FUSION 2020 L2-S1 REFRACTIVE SURGERY [...] the most recent lab values available in [facility] at the time ofthe office visit and additional labs may have been drawn since that time. ASSESSMENT / DIAGNOSIS: Spinal stenosis of lumbar region with neurogenic claudication PLAN: Celestino Ziegler is scheduled for Laminectomy Lumbar Single Level / L1-L2 with Dr. Olsen on 10/22/23. DI Singletary 10/08/23 1426 documented in this [facility]02-23-2024 Instructions* Patient Instructions* Katina Mckeon RN - 10/08/2023 1:15 PM EST Your surgery/procedure is scheduled at [facility] on 10/22/2023 at 0730 Arrival Time 0530 [facility] Address: [address] [place] [address] Park in [address]1 Parking lot located on [facility]. Report to the Entrance B. Check in at the information desk the surgery. The waiting room located on the second floor. If you have any questions prior to surgery, please call Pre-Admission Clinic at [phone] between 7:30 am and 4:30 pm Wednesday through Wednesday. If you have questions the morning of surgery, please call the Pre-op Department at [phone]. Notify your SURGEON if you develop any [...] would like to schedule therapy at a [facility] facility, please call [phone] ([phone]). Do not use lotions, creams, powders, perfume, [...] RIGHTS AND RESPONSIBILITIES As a patient at [facility], you have the right to: Receive medical care and be informed of who is taking care of you Be treated with dignity and respect Have a family member/insurance healthcare representative of choice and your physician notified of your admission Receive information and actively participate in decisions about your care and treatment Refuse care, treatment and services Decide who may provide your support and speak for you Access latter-day and spiritual services Participate in ethical issues [...] of hospital charges and payment methods Patient/patient insurance healthcare representative responsibilities are to: Provide information about [...] surgery in clean clothes. documented in this encounterUniversity [facility]02-08-2024 NoteXR CHEST 2 VWS CLINICAL INFORMATION: . Pre-op testing. TECHNIQUE/PROCEDURE: Chest radiographs, two views. COMPARISON: Prior chest radiographs, most recently 05/24/2018 FINDINGS: No tracheal deviation. Cardiac and mediastinal contours are normal. No consolidation, pneumothorax or pleural effusion. No free air. IMPRESSION: * No radiographic evidence of acute cardiopulmonary disease. Finalized by Brenden Zapien MD on 09/23/2023 4:11 [facility] 09-23-2023 NoteCLINICAL INFORMATION: . Pre-op testing. TECHNIQUE/PROCEDURE: Chest radiographs, two views. COMPARISON: Prior chest radiographs, most recently 05/24/2018 FINDINGS: No tracheal deviation. Cardiac and mediastinal contours are normal. No consolidation, pneumothorax or pleural effusion. No free air. IMPRESSION: * No radiographic evidence of acute cardiopulmonary disease. Finalized by Brenden Zapien MD on 09/23/2023 4:11 [id number] History of Present illness Narrative* Charles Tim APRN-FPGA DESIGN ENGINEER - 09/23/2023 11:50 AM EST Images from the original note were not included. [facility] [address] [place] [address], [address] [place] [address] * CHART NOTE ? 09/23/2023 Patient: Celestino Ziegler 1970 [id number] Physician: Darrell Olsen MD CHIEF COMPLAINT Low [...] to the patient's understanding. Denies loss of general engineer strength, saddle anesthesia, urinary or bowel dysfunction, [...] Right achilles: 2+ Left achilles: 2+ Right general engineer: 2+ Left general engineer: 2+ Right Dumont: absent Left Dumont: absent [...] Preop chest x-ray. Electronically Signed By: Charles Tim CNP in conjunction with Darrell Olsen MD This note was created with the assistance of a speech recognition program with the goal of generating a timely record of the patient encounter. Inadvertent computerized product safety test engineer errors related to syntax, spelling, homophones, and/or inaudibility may be present. DI Cha 09/23/23 1548 documented in this encounterUniversity Hospitals [facility]02-08-2024 Instructions* Patient Instructions* VIGNESH Hoover - 09/23/2023 11:50 AM EST Patient was seen by Dr. Olsen and DI Resendiz Patient was offered surgery for L1-L2 Laminectomy with Fusion. Patient will meet with Dr. Pretty Maradiaga's team leader surgery, to schedule surgery. Patient was given an order for a chest x ray. JA documented in this encounterUniversity Hospitals [facility]02-01-2024 Miscellaneous Notes* Telephone Encounter - Kathy Ziegler CNA - 09/16/2023 2:24 PM EST Last OV: 08/19/23 Next OV: 09/23/23 With Pretty VALERIO appropriate: yes Last UDS: na Pharmacy: [facility] documented in this encounterUniversity Hospitals [facility]02-01-2024 Telephone encounter Note* Telephone Encounter - Kathy Ziegler CNA - 09/16/2023 2:24 PM EST Last OV: 08/19/23 Next OV: 09/23/23 With Pretty VALERIO appropriate: yes Last UDS: na Pharmacy: [facility]01-18-2024 History of Present illness Narrative* DI Cha - 09/02/2023 10:15 AM EST Images from the original note were not included. [facility] [address] [place] [address], [address] [place] [address] * CHART NOTE ? 09/02/2023 Patient: Celestino Ziegler 1970 [id number] Nurse Practitioner: Charles Tim FPGA DESIGN ENGINEER Physician: Darrell Olsen MD, FAANS CHIEF COMPLAINT [...] good candidate for that. Denies loss of general engineer strength, saddle anesthesia, urinary or bowel dysfunction, [...] HISTORY Past Medical History: Diagnosis Date Alcoholism ([facility]) Anxiety Back pain Chronic pain disorder Cough Depression Environmental allergies Hypertension history of this, not currently treated Low back pain Neck pain Visual impairment contacts PAST SURGICAL HISTORY Past Surgical History: Procedure Laterality Date ARTHROSCOPY REPAIR LESION SUPERIOR LABRUM EXTENDING FROM ANTERIOR TO POSTERIOR (SLAP) SHOULDER Left06/07/2018 Performed by Jr Christian Estrada DO at [facility] ARTHROSCOPY REPAIR ROTATOR CUFF SHOULDER Left 06/07/2018 Performed by Jr Christian Estrada DO at [facility] ARTHROSCOPY SHOULDER Left 06/07/2018 Performed by Jr Christian Estrada DO at [facility] INJECTION BLOCK SACROILIAC JOINT Bilateral 06/04/2023 Performed by Dave Garcia MD at [facility] BLOCK SACROILIAC JOINT Bilateral 03/19/2023 Performed by Dave Garcia MD at [facility] BLOCK SACROILIAC JOINT Bilateral 01/15/2023 Performed by Dave Garcia MD at [facility] BLOCK SACROILIAC JOINT Bilateral 09/04/2022 Performed by Dave Garcia MD at [facility] BLOCK SACROILIAC JOINT Right 05/22/2022 Performed by Dave Garcia MD at [facility] BLOCK SACROILIAC JOINT Bilateral 02/20/2022 Performed by Dave Garcia MD at [facility] BLOCK SACROILIAC JOINT Bilateral 10/20/2021 Performed by Dave Garcia MD at [facility] BLOCK SACROILIAC JOINT Bilateral 12/13/2020 Performed by Dave Garcia MD at [facility] INJECTION BURSA LARGE JOINT Right hip intra-articular Right 02/21/2021 Performed by Dave Garcia MD at [facility] BURSA LARGE JOINT: right hip Right 03/27/2022 Performed by Dave Gracia MD at [facility] CAUDAL EPIDURAL WITH CATHETER, STEROID N/A 02/23/2020 Performed by Dave Garcia MD at [facility] CAUDAL EPIDURAL WITH CATHETER, STEROID N/A 01/15/2020 Performed by Dave Garcia MD at [facility] CAUDAL EPIDURAL WITH CATHETER, STEROID N/A 06/23/2019 Performed by Dave Garcia MD at [facility] CAUDAL EPIDURAL WITH CATHETER, STEROID N/A 05/05/2019 Performed by Dave Garcia MD at [facility] CAUDAL EPIDURAL WITH CATHETER, STEROID N/A 08/12/2018 Performed by Dave Garcia MD at [facility] CAUDAL EPIDURAL WITH CATHETER, STEROID 1 of 2 N/A 01/28/2018 Performed by Dave Garcia MD at [facility] CAUDAL EPIDURAL WITH CATHETER, STEROID 2 of 2 N/A 02/11/2018 Performed by Dave Garcia MD at [facility] INJECTION SPINE TRANSFORAMINAL Left L 1,2 Nroot Left 01/24/2021 Performed by Dave Garcia MD at [facility] INJECTION SPINE TRANSFORAMINAL: left L 1,2 nroot Left 04/17/2022 Performed by Dave Garcia MD at [facility] INJECTION SPINE TRANSFORAMINAL: right L 1,2 nroot Right 04/16/2023 Performed by Dave Garcia MD at [facility] REFRACTIVE SURGERY Bilateral FAMILY HISTORY Family [...] Right achilles 2+ Left achilles 2+ Right general engineer 2+ Left general engineer 2+ Right Dumont reflex absent and left [...] up after CT. Electronically Signed By: Charles Tim CNP This note was created with the assistance of a speech recognition program with the goal of generating a timely record of the patient encounter. Inadvertent computerized product safety test engineer errors related to syntax, spelling, homophones, and/or inaudibility may be present. DI Cha 09/02/23 1040 documented in this encounterUniversity Hospitals Lake [facility] Center01-18-2024 Instructions* Patient Instructions* VIGNESH Hoover - 09/02/2023 10:15 AM EST Patient was seen by DI Resendiz Patient was given an order for CT Lumbar without contrast. Lumbar Spine Flex/Ext x ray. Patient will follow up when CT has been scheduled. JA documented in this encounterUniversity Hospitals Lake [facility] Center01-04-2024 History of Present illness Narrative* CHIQUITA Wong - 08/19/2023 1:00 PM EST [facility] [address] [place] [address] Patient: Celestino Sheraparna Sex: male : 1970 Age: 53 y.o. PCP: DONNA HERRERA MD 08/19/2023 Celestino Yong Ziegler is here for a(n) follow up back [...] Performed by Jr Christian Estrada DO at [facility] ARTHROSCOPY REPAIR ROTATOR CUFF SHOULDER Left 06/07/2018 Performed by Jr Christian Estrada DO at [facility] ARTHROSCOPY SHOULDER Left 06/07/2018 Performed by Jr Christian Estrada DO at [facility] INJECTION BLOCK SACROILIAC JOINT Bilateral 06/04/2023 Performed by Dave Garcia MD at [facility] BLOCK SACROILIAC JOINT Bilateral 03/19/2023 Performed by Dave Garcia MD at [facility] BLOCK SACROILIAC JOINT Bilateral 01/15/2023 Performed by Dave Garcia MD at [facility] BLOCK SACROILIAC JOINT Bilateral 09/04/2022 Performed by Dave Garcia MD at [facility] BLOCK SACROILIAC JOINT Right 05/22/2022 Performed by Dave Garcia MD at [facility] IN[facility] BLOCK SACROILIAC JOINT Bilateral 02/20/2022 Performed by Dave Garcia MD at [facility] BLOCK SACROILIAC JOINT Bilateral 10/20/2021 Performed by Dave Garcia MD at [facility] BLOCK SACROILIAC JOINT Bilateral 12/13/2020 Performed by Dave Garcia MD at [facility] BURSA LARGE JOINT Right hip intra-articular Right 02/21/2021 Performed by Dave Garcia MD at [facility] INJECTION BURSA LARGE JOINT: right hip Right 03/27/2022 Performed by Dave Garcia MD at [facility] CAUDAL EPIDURAL WITH CATHETER, STEROID N/A 02/23/2020 Performed by Dave Garcia MD at [facility] CAUDAL EPIDURAL WITH CATHETER, STEROID N/A 01/15/2020 Performed by Dave Garcia MD at [facility] CAUDAL EPIDURAL WITH CATHETER, STEROID N/A 06/23/2019 Performed by Dave Garcia MD at [facility] INJECTION CAUDAL EPIDURAL WITH CATHETER, STEROID N/A 05/05/2019 Performed by Dave Garcia MD at [facility] INJECTION CAUDAL EPIDURAL WITH CATHETER, STEROID N/A 08/12/2018 Performed by Dave Garcia MD at [facility] INJECTION CAUDAL EPIDURAL WITH CATHETER, STEROID 1 of 2 N/A 01/28/2018 Performed by Dave Garcia MD at [facility] INJECTION CAUDAL EPIDURAL WITH CATHETER, STEROID 2 of 2 N/A 02/11/2018 Performed by Dave Garcia MD at [facility] INJECTION SPINE TRANSFORAMINAL Left L 1,2 Nroot Left 01/24/2021 Performed by Dave Garcia MD at [facility] SP[facility] TRANSFORAMINAL: left L 1,2 nroot Left 04/17/2022 Performed by Dave Garcia MD at [facility] SP[facility] TRANSFORAMINAL: right L 1,2 nroot Right 04/16/2023 Performed by Dave Garcia MD at [facility] REFRACTIVE SURGERY Bilateral No Known Allergies [...] the presence of CHIQUITA WONG by Kathy Ziegler CNA. Provider Statement: I, CHIQUITA WONG, personally performed the services described in the documentation, as scribed by Kathy Ziegler CNA in my presence, and it is both accurate and complete. Kathy Ziegler CNA 08/19/23 1437 CHIQUITA Wong 08/24/23 0902 [facility]* Encounter Date Diagnosis Assessment Notes [...] fusion of lumbar spine (ICD-10 - Z98.1) [employer] Other 01-31-2023 Evaluation note* Encounter Date Diagnosis [...] fusion of lumbar spine (ICD-10 - Z98.1) [employer] [facility] [employer] Other 12-20-2022 Evaluation note* Encounter Date Diagnosis [...] Spondylolisthesis of lumbar region (ICD-10 - M43.16) [facility] [employer] [employer] Other 12-21-2021 Evaluation note* Encounter Date Diagnosis [...] Jul, Other chronic pain (ICD-10 - G89.29) [employer] [facility] [employer] Other 10-23-2018 History general Narrative - Reported* Type Description Date Medical History chronic depression Medical History asthma Surgical History LT SHOULDER SCOPE PER DR KALPANA SUMMERS 06/07/18 Surgical History rotator cuff(L) Surgical History lasik Surgical History XLIF-Doctor Cadet Hospitalization History See Above [employer] Other discharge summary Author Qasim Mancilla [facility] November 01, 2023 9:31am Note Date/Time October 30, 2023 10: 15am [facility] [address] [place], [place] [id number] Discharge Summary Signed Patient: Celestino Ziegler MR#: [id number] : 1970 Acct:[id number] Age/Sex: 53 / M Adm Date: 4 Loc: 5T Room: 9G1952-[address]: Qasim Mancilla MD Copies to: [...] with chronic back pain. Patient went to [facility] October 21 for elective L1-2 compressive laminectomy and partial medial facetectomy with L1-2 fusion after failed conservative treatment. He was seen by therapy services and felt would benefit from ongoing therapy and subsequently transferred to the inpatient rehab unit here at [facility] October 27. Postoperatively the patient [...] signed by Qasim Mancilla MD> 11/01/23 0931 [facility] Work Phone: Evaluation + Plan note No data available for this section General Surgery [place] Evaluation noteNo assessment information available [facility] Work Phone: Evaluation note* Diagnosis Spinal stenosis of lumbar region with neurogenic claudication- Primary [facility] Diagnosis Spinal stenosis of lumbar region with neurogenic claudication- Primary History of lumbar fusion Radiculopathy, lumbar region Thoracic or lumbosacral neuritis or radiculitis, unspecified Lumbar radiculopathy Thoracic or lumbosacral neuritis or radiculitis, unspecified [facility] Disorder of sacrum Disorders of sacrum [facility] Diagnosis Spinal stenosis of lumbar region with neurogenic claudication- Primary Pre-op testing Unspecified pre-operative examination Radiculopathy, lumbar region Thoracic or lumbosacral neuritis or radiculitis, unspecified Pre-op testing Unspecified pre-operative examination Spinal stenosis of lumbar region- Primary Spinal stenosis of lumbar region with neurogenic claudication [facility] Diagnosis Spinal stenosis of lumbar region- Primary Spinal stenosis of lumbar region with neurogenic claudication Spinal stenosis of lumbar region with neurogenic claudication [facility] Diagnosis Onset Date Resolution Status Asthma acute Depression with anxiety acut e Hypothyroid acute Impaired mobility and activities of daily living acute Lumbar spinal stenosis acute Post-operative pain acute S/P lumbar fusion acute [facility] Work Phone: Hospital Discharge instructions No data available for this section General Surgery Kristyn InstructionsNot on filedocumented in this encounter [facility] filedocumented in this encounter [facility]ructionsNot on filedocumented in this encounter [facility] No data available for this section General Surgery Kristyn Reason for referral (narrative)* Consultation (Routine) - Pending Review Specialty Diagnoses / Procedures Referred By Contac t Referred To Contact Neurosurgery Diagnoses Spinal stenosis of lumbar region with neurogenic claudication Xu Troy PA [address] [facility] [place] [address] Darrell Olsen MD [address] [facility] [address] [place] [address] Referral ID Status Reason Start Date Expiration Date Visits Requested Visits Authorized [id number] Pending Review Specialty Services Required 08/24/2023 08/23/2024 1 1 [facility] Summary Purpose Family History No Family [...] Procedures CT lumbar spine without contrast Charles Tim, MUSIC MINISTRIES DIRECTOR-FPGA DESIGN ENGINEER [address] [facility] [address] [place] [address] Referral ID Status Reason Start Date Expiration Date V isits Requested Visits Authorized [id number] Pending Review 09/02/2023 09/01/2024 1 1 Reason Evaluate and Treat P T for Back and Leg Pain Diagnosis 1 Lumbar radiculopathy (M54.16) Referral Organization [facility] urosurgery Referring Provider First Name Trino Referring Provider Last Name Cadet Referring Provider Specialty Neurologica l Surgery Referred Organization [facility] Referred Address ,[place], [place],[address] Referred Provider Specialty Physical The rapist Referral Priority Routine Referral Appointment Date 2022-08-19 General Notes NicmontseHeather sampson 023 04:08:29 PM >PT NOTES IN CHART Chief Complaint and Reason for Visit Chief Complaint See order Chief Complaint Lumbar Stenosis S/P Decompression / Fusion Lumbar Stenosis S/P Decompression / Fusion Reason for Visit Asthma Depression with anxiety Hypothyroid Impaired mobility and activities of daily living Lumbar spinal stenosis Post-operative pain S/P lumbar fusion Chief Complaint Lumbar Stenosis S/P Decompression / Fusion Lumbar Stenosis S/P Decompression / Fusion Lumbar Stenosis S/P Decompression / Fusion Unknown Reason for Visit Asthma Depression with anxiety Hypothyroid Impaired mobility and activities of daily living Lumbar spinal stenosis Post-operative pain S/P lumbar fusion Additional Source Comments REASON FOR VISIT (unrecogniz ed section and content) Reason Comments Back Pain Reason Comments Consult GRAPHIC EDITOR lumbar Specialty Diagnoses / Procedures Referred By Contac t Referred To Contact Neurosurgery Diagnoses Spinal stenosis of lumbar region with neurogenic claudication Xu Troy PA [address] [facility] [place] [id number] Darrell Olsen MD [facility] [address] [place] [phone] Referral ID Status Reason Start Date Expiration Date Visits Requested Visits Authorized [id number] Pending Review Specialty Services Required 08/24/2023 08/23/2024 1 1 Reason Onset Date Comments Med Refill 09/16/2023 Reason Comments Follow-up ep/review ct results (unrecognized sect ion and content) No Status Records FoundNo Status Records FoundNo Status Records FoundNo Status Records FoundNo Status Records FoundNo Status Records Found INFORMATION SOURCE (unrecogn ized section and content) DATE CREATED AUTHOR 09/09/[address] [place] [facility] DATE CREATED AUTHOR AUTHOR'S ORGANIZ ATION 10/28/2023 [facility] DATE CREATED AUTHOR AUTHOR'S ORGANIZ ATION [facility] DATE CREATED AUTHOR AUTHOR'S ORGANIZ ATION 12/23/2023 [facility] DATE CREATED AUTHOR AUTHOR'S ORGANIZ ATION 12/24/2023 [facility] DATE CREATED AUTHOR AUTHOR'S ORGANIZ ATION 01/01/[address] [facility] Care Teams (unrecognized sec tion and content) Team Status: Active Member Role Status Dates Donna Herrera MD Primary Care Provider Active Team Status: Inactive Member Role Status Dates Donna Herrera MD Primary Care Provider Active Trino Cadet MD Attending Provider Active Zoning Technician Relationship Specialty Start Date End Date Donna Herrera MD [address] [place] [address] PCP - General 05/24/18 Zoning Technician Relationship Specialty Start Date End Date Donna Herrera MD [address] [place] [address] PCP - General 05/24/18 Zoning Technician Relationship Specialty Start Date End Date Donna Herrera MD [address] [place] [address] PCP - General 05/24/18 Zoning Technician Relationship Specialty Start Date End Date Donna Herrera MD [address] [place] [address] PCP - General 05/24/18 Zoning Technician Relationship Specialty Start Date End Date Donna Herrera MD [address] [place] [address] PCP - General 05/24/18 Zoning Technician Relationship Specialty Start Date End Date Donna Herrera MD [address] [place] [address] PCP - General 05/24/18 Team Status: Inactive [...] Kraft , CORNELL Other Provider Active Start: [facility] 2023 End: October 29, 2023 Alyce Mcintosh RN Other Provider Active Star t: October 27, 2023 End: October 29, 2023 Berkley Giron , CORNELL Other Provider Active Start : October 27, 2023 End: October 29, 2023 Jennifer Hatfield RN Other Provider Active Start: [facility] 2023 End: October 29, 2023 Perla Bunn RN Other Provider Active Start: [facility] 2023 End: October 29, 2023 Lena Tejeda MD Other Provider Active Start: October 27, 2023 End: October 29, 2023 Virgilio Ley MD Other Provider Active Start: [facility] 2023 End: October 29, 2023 Kathy [...] Marcell Green MD Other Provider Active Start: [facility] 2023 End: October 29, 2023 Kathe Lentz APRN Other Provider Active Start: October 27, 2023 End: October 29, 2023 Mary Bowen MD Other Provider Active Start: October 27, 2023 End: October 29, 2023 Tavon Zarco MD Other Provider Active Start: [facility] 2023 End: October 29, 2023 Jorge Lopez MD Other Provider Active Start: October 27, 2023 End: October 29, 2023 Sanjana Cortes MD Other Provider Active Start: October 27, 2023 End: October 29, 2023 Michel Fuchs DO Other Provider Active Start: October 27, 2023 End: October 29, 2023 Emil Magana MD Other Provider Active Start: [facility] 2023 End: October 29, 2023 Tong Varma MD Other Provider Active Start: [facility] 2023 End: October 29, 2023 Rhiannon Feldman NP-C Other Provider Active St art: October 27, 2023 End: October 29, 2023 Avelina Houser APRN Other Provider Active Star t: October 27, 2023 End: October 29, 2023 Rajat Silvestre MD Other Provider Active Start: October 27, 2023 End: October 29, 2023 John Krishna MD Other Provider Active Start: [facility] 2023 End: October 29, 2023 Tod Curry MD Other Provider Active Start: [facility] 2023 End: October 29, 2023 Maximus Arce MD Other Provider Active Star t: October 27, 2023 End: October 29, 2023 Tha Otto MD Other Provider Active Start: [facility] 2023 End: October 29, 2023 Swathi Jones DO Other Provider Active Start: [facility] 2023 End: October 29, 2023 Ricky Guzman DO Other Provider Active Start : October 27, 2023 End: October 29, 2023 Juan C Santiago DO Other Provider Active Sta rt: October 27, [...] Janessa Negrete MD Other Provider Active Start: [facility] 2023 End: October 29, 2023 Avi [...] Alisa Bauer RN Other Provider Active Start: [facility] 2023 End: October 29, 2023 Team [...] Kraft , CORNELL Other Provider Active Start: [facility] 2023 Alyce Mcintosh , CORNELL Other Provider Active Star t: October 28, 2023 Berkley Giron , CORNELL Other Provider Active Start : October 28, 2023 Jennifer Hatfield , CORNELL Other Provider Active Start: [facility] 2023 Perla Bunn , CORNELL Other Provider Active Start: [facility] 2023 Lena Tejeda MD Other Provider Active Start: October 28, 2023 Virgilio Ley MD Other Provider Active Start: [facility] 2023 Kathy Loya APRN Other Provider Active Start: October 28, 2023 Ronobir Onesimo , DO Other Provider Active Start : October 28, 2023 Oswaldo Washington MD Other Provider Active Start : October 28, 2023 Bhavik Hull , Other Provider Active Start: October 28, 2023 Prosper Fry MD Other Provider Active Start: October 28, 2023 Evelyn Medina MD Other Provider Active Start : October 28, 2023 Marcell Green MD Other Provider Active Start: [facility] 2023 Kathe Lentz APRN Other Provider Active Start: October 28, 2023 Mary Bowen MD Other Provider Active Start: October 28, 2023 Tavon Zarco MD Other Provider Active Start: [facility] 2023 Jorge Lopez MD Other Provider Active Start: October 28, 2023 Sanjana Cortes MD Other Provider Active Start: October 28, 2023 Michel Fuchs , Other Provider Active Start: October 28, 2023 Emil Magana MD Other Provider Active Start: [facility] 2023 Tong Varma MD Other Provider Active Start: [facility] 2023 Rhiannon Feldman GRAPHIC EDITOR-C Other Provider Active St art: October 28, 2023 Avelina Houser APRN Other Provider Active Star t: October 28, 2023 Rajat Silvestre MD Other Provider Active Start: October 28, 2023 John Krishna MD Other Provider Active Start: [facility] 2023 Tod Curry MD Other Provider Active Start: [facility] 2023 Maximus Arce MD Other Provider Active Star t: October 28, 2023 Tha Otto MD Other Provider Active Start: [facility] 2023 Swathi Jones , Other Provider Active Start: [facility] 2023 Ricky Guzman , Other Provider Active [...] Janessa Negrete MD Other Provider Active Start: [facility] 2023 Avi Khan MD Other Provider Active S tart: October 28, 2023 Los Constantino , DO Other Provider Active Star t: October 28, 2023 Keaton Reyes , Other Provider Active Start: October 28, 2023 Adam Curry MD Other Provider Active Start: October 28, 2023 Alisa Bauer RN Other Provider Active Start: [facility] 2023 Team Status: Active Member Role Status Dates Donna Herrera MD Primary Care Provider Active Start: October 28, 2023 End: October 29, 2023 Qasim Mancilla MD Admit Provid er, Attending Provider, Other Provider Active Start: October 28, 2023 End: October 29, 2023 Yasmeen Quinones RN Other Provider Active Star t: October 28, 2023 End: October 29, 2023 Flores Givens , CORNELL Other Provider Active Start : October 28, 2023 End: October 29, 2023 Ariela Kraft , CORNELL Other Provider Active Start: [facility] 2023 End: October 29, 2023 Alyce Mcintosh , CORNELL Other Provider Active Star t: October 28, 2023 End: October 29, 2023 Berkley Giron , CORNELL Other Provider Active Start : October 28, 2023 End: October 29, 2023 Jennifer Hatfield , CORNELL Other Provider Active Start: [facility] 2023 End: October 29, 2023 Perla Bunn , CORNELL Other Provider Active Start: [facility] 2023 End: October 29, 2023 Lena Tejeda MD Other Provider Active Start: October 28, 2023 End: October 29, 2023 Virgilio Ley MD Other Provider Active Start: [facility] 2023 End: October 29, 2023 Kathy Loya APRN Other Provider Active Start: October 28, 2023 End: October 29, 2023 Michelle Echols DO Other Provider Active Start : October 28, 2023 End: October 29, 2023 Oswaldo Washington MD Other Provider Active Start : October 28, 2023 End: October 29, 2023 Bhavik Hull DO Other Provider Active Start: October 28, 2023 End: October 29, 2023 Prosper Fry MD Other Provider Active Start: October 28, 2023 End: October 29, 2023 Evelyn Medina MD Other Provider Active Start : October 28, 2023 End: October 29, 2023 Marcell Green MD Other Provider Active Start: [facility] 2023 End: October 29, 2023 Kathe Lentz APRN Other Provider Active Start: October 28, 2023 End: October 29, 2023 Mary Bowen MD Other Provider Active Start: October 28, 2023 End: October 29, 2023 Tavon Zarco MD Other Provider Active Start: [facility] 2023 End: October 29, 2023 Jorge Lopez MD Other Provider Active Start: October 28, 2023 End: October 29, 2023 Sanjana Cortes MD Other Provider Active Start: October 28, 2023 End: October 29, 2023 Michel Fuchs DO Other Provider Active Start: October 28, 2023 End: October 29, 2023 Emil Magana MD Other Provider Active Start: [facility] 2023 End: October 29, 2023 Tong Varma MD Other Provider Active Start: [facility] 2023 End: October 29, 2023 BILLY Díaz Other Provider Active St art: October 28, 2023 End: October 29, 2023 Avelina Houser APRN Other Provider Active Star t: October 28, 2023 End: October 29, 2023 Rajat Silvestre MD Other Provider Active Start: October 28, 2023 End: October 29, 2023 John Krishna MD Other Provider Active Start: [facility] 2023 End: October 29, 2023 Tod Curry MD Other Provider Active Start: [facility] 2023 End: October 29, 2023 Maximus Arce MD Other Provider Active Star t: October 28, 2023 End: October 29, 2023 Tha Otto MD Other Provider Active Start: [facility] 2023 End: October 29, 2023 Swathi Jones DO Other Provider Active Start: [facility] 2023 End: October 29, 2023 Ricky Guzman , DO Other Provider Active Start : October 28, 2023 End: October 29, 2023 Juan C Santiago , Other Provider Active Sta rt: October 28, 2023 End: October 29, 2023 Gina Franco APRN Other Provider Active Start: October 28, 2023 End: October 29, 2023 Vito Azar , Other Provider Active Start: October 28, 2023 End: October 29, 2023 Khloe Silva MD Other Provider Active Sta rt: October 28, 2023 End: October 29, 2023 Sabi Ruff APRN Other Provider Active Start : October 28, 2023 End: October 29, 2023 Adilene Barba APRN Other Provider Active St art: October 28, 2023 End: October 29, 2023 Janessa Negrete MD Other Provider Active Start: [facility] 2023 End: October 29, 2023 Avi Khan MD Other Provider Active S tart: October 28, 2023 End: October 29, 2023 Los Constantino , Other Provider Active Star t: October 28, 2023 End: October 29, 2023 Keaton Reyes DO Other Provider Active Start: October 28, 2023 End: October 29, 2023 Adam Curry MD Other Provider Active Start: October 28, 2023 End: October 29, 2023 Alisa Bauer RN Other Provider Active Start: [facility] 2023 End: October 29, 2023 Team Status: Active Member Role Status Dates Donna Herrera MD Primary Care Provider Active Start: October 28, 2023 Qasim Mancilla MD Admit [facility], Other Provider Active Start: October 28, 2023 Yasmeen Quinones RN Other Provider Active Star t: October 28, 2023 Flores Givens , CORNELL Other Provider Active Start : October 28, 2023 Ariela Kraft , CORNELL Other Provider Active Start: [facility] 2023 Alyce Mcintosh RN Other Provider Active Star t: October 28, 2023 Berkley Giron , CORNELL Other Provider Active Start : October 28, 2023 Jennifer Hatfield , CORNELL Other Provider Active Start: [facility] 2023 Perla Bunn , CORNELL Other Provider Active Start: [facility] 2023 Lena Tejeda MD Other Provider Active Start: October 28, 2023 Virgilio Ley MD Other Provider Active Start: [facility] 2023 Kathy Loya APRN Other Provider [...] Marcell Green MD Other Provider Active Start: [facility] 2023 Kathe Lentz APRN Attending Sri rush, Other Provider Active Start: October 28, 2023 Mary Bowen MD Other Provider Active Start: October 28, 2023 Tavon Zarco MD Other Provider Active Start: [facility] 2023 Jorge Lopez MD Other Provider Active Start: October 28, 2023 Sanjana Cortes MD Other Provider Active Start: October 28, 2023 Michel Fuchs DO Other Provider Active Start: October 28, 2023 Emil Magana MD Other Provider Active Start: [facility] 2023 Tong Varma MD Other Provider Active Start: [facility] 2023 BILLY Díaz Other Provider Active St art: October 28, 2023 Avelina Houser APRN Other Provider Active Star t: October 28, 2023 Rajat Silvestre MD Other Provider Active Start: October 28, 2023 John Krishna MD Other Provider Active Start: [facility] 2023 Tod Curry MD Other Provider Active Start: [facility] 2023 Maximus Arce MD Other Provider Active Star t: October 28, 2023 Tha Otto MD Other Provider Active Start: [facility] 2023 Swathi Jones , Other Provider Active Start: [facility] 2023 Ricky Guzman , DO Other [...] Janessa Negrete MD Other Provider Active Start: [facility] 2023 Avi Khan MD Other Provider Active S tart: October 28, 2023 Los Constantino , Other Provider Active Star t: October 28, 2023 Keaton Reyes , Other Provider Active Start: October 28, 2023 Adam Curry MD Other Provider Active Start: October 28, 2023 Alisa Bauer RN Other Provider Active Start: [facility] 2023 Team Status: Inactive Member Role Status Dates Donna Herrera MD Primary Care Provider Active Start: December 22, 2023 End: December 22, 2023 Michel Robbins MD [facility] Attending Provider Active Start: December 22, 2023 End: December 22, 2023 Goals (unrecognized section and content) Goals [...] BE BASED ON THE PRIMARY CLINICAL RECORDS. [facility] [employer] [facility]. provides no warranty or guarantee of the accuracy or completeness of information in this document.
[2024-01-03 09:22] LABS: Free T3 2.02 pg/mL (2.18-3.98); Thyroid Stimulating Hormone 2.253 uIU/mL (0.358-3.740)
== END 2024-01-03 07:07 | disposition home or self-care (01) ==
LOC: LAB 07:06
PROVIDERS: PCP Family Medicine; Visit Provider Family Medicine
DX: E03.9 Hypothyroidism, unspecified (principal)
CPT/HCPCS: 36415; 84436; 84443; 84481

== ENCOUNTER 2024-04-03 15:21 | Outpatient (OUT) | payer OTHER, SELFPAY ==
[2024-04-03 16:30] LABS: Free T4 0.83 ng/dL (0.76-1.46)
== END 2024-04-03 15:22 | disposition home or self-care (01) ==
LOC: LAB 15:23
PROVIDERS: PCP Family Medicine; Visit Provider Family Medicine
DX: E03.9 Hypothyroidism, unspecified (principal)
CPT/HCPCS: 36415; 84439; 84443

== ENCOUNTER 2024-10-06 07:30 | Outpatient (OUT) | payer OTHER, SELFPAY ==
--- OUTSIDE RECORDS SUMMARY | 2024-10-06 07:47 | XMS_ITS | CCD ---
Author Organization [facility] Care Team Providers Care Medicaid Specialist Name Role Phone Trino Cadet Unavailable SHARON, DR THOMPSON Admitting Unavailable HOY, DR THOMPSON Attending Unavailable HOY, DR THOMPSON Consulting Unavailable HOY, DR THOMPSON Primary Care Unavailable HOY, DR THOMPSON Admitting Unavailable HOY, DR THOMPSON Attending Unavailable HOY, DR THOMPSON Consulting Unavailable AMEENAY, DR THOMPOSN Primary Care Unavailable HOY, DR THOMPSON Primary Care Unavailable HOY, DR THOMPSON Admitting Unavailable HOY, DR THOMPSON Attending Unavailable HOY, DR THOMPSON Consulting Unavailable HOY, DR THOMPSON Primary Care Unavailable REINECK, DR RHONDA Weathers Attending Unavailabl e NOEL, DR RHONDA Weathers Admitting Unavailabl e CHIQUITA ULLOA Consulting Unavailable ENA, TRISTA Consulting Unavailable MD Adithya Herrera Primary Care Provider [phone] MD Trino Cadet Attending Provider DARRELL OLSEN Admitting Unavailable DARRELL OLSEN Attending Unavailable SHARON ADITHYA M Primary Care Unavailable JIM COPELAND Consulting Unavailable HOY, ADITHYA M Primary Care Unavailable MEETA CHRALES Referring Unavailable HOY, ADITHYA M Primary Care Unavailable DARRELL OLSEN Attending Unavailable DARRELL OLSEN Referring Unavailable HOY, ADITHYA M Primary Care Unavailable MARVA AGUAYO Referring Unavailable HOY, ADITHYA M Primary Care Unavailable TIM, CHARLES Referring Unavailable HOY, ADITHYA M Primary Care Unavailable DARRELL OLSEN Referring Unavailable SHARON, ADITHYA M Primary Care Unavailable MD Adithya Herrera Primary Care Provider [phone] MD Qasim Mancilla Admit Provider MD Qasim Mancilla Attending Provider [phone] CORNELL Quinones Other Provider Unavailable CORNELL Givens Other Provider Unavailable Swapnil RN Ariela Other Provider Unavailable CORNELL Mcintosh Other Provider Unavailable CORNELL Giron Other Provider Unavailable CORNELL Hatfield Other Provider Unavailable CORNELL Bunn Other Provider Unavailable MD Lena Tejeda Other Provider MD Virgilio Ley Other Provider Unavailable Dials, SOLUTIONS EXECUTIVE SECURITY Kathy M Other Provider DO Michelle Echols Other Provider MD Oswaldo Washington Other Provider DO Bhavik Hull Other Provider MD Prosper Fry Other Provider [phone] MD Evelyn Medina Other Provider MD Marcell Green Other Provider Unavailable Mary Carmen SOLUTIONS EXECUTIVE SECURITYFreida Archuleta Other Provider MD Mary Bowen Other Provider [phone] MD Tavon Zarco Other Provider MD Jorge Lopez Other Provider MD Sanjana Cortes Other Provider DO Michel uFchs Other Provider MD Emil Magana Other Provider MD Tong Varma Other Provider BILLY Feldman Other Provider Born, SOLUTIONS EXECUTIVE SECURITYFreida Blanchard Other Provider Unavailable MD Rajat Silvestre Other Provider MD John Krishna Other Provider MD Tod Curry Other Provider MD Maximus Arce Other Provider Unavailable MD Tha tOto Other Provider DO Swathi Jones Other Provider DO Ricky Guzman Other Provider DO Juan C Santiago Other Provider PIPO Franco Other Provider DO Vito Azar Other Provider [phone] MD Khloe Silva Other Provider PIPO Ruff Other Provider PIPO Barba Other Provider [phone] MD Janessa Negrete Other Provider MD Avi Khan Other Provider DO Los Constantino Other Provider DO Eric Yajered Other Provider MD Adam Curry Other Provider CORNELL Bauer Other Provider Unavailable Adithya Herrera Primary Care Physician DARRELL OLSEN Attending Unavailable HOY, ADITHYA M Referring Unavailable HOY, ADITHYA M Primary Care Unavailable HOY, ADITHYA M Referring Unavailable HOY, ADITHYA M Primary Care Unavailable CHARLES TIM Attending Unavailable XU TROY Referring Unavailable HOY, ADITHYA M Primary Care Unavailable CHARLES TIM Attending Unavailable HOY, ADITHYA M Referring Unavailable HOY, ADITHYA M Primary Care Unavailable CHARLES TIM Attending Unavailable Qasim Mancilla Admitting Unavaila Qasim Ochoa Attending Unavaila Yasmeen Burdick Consulting Unavailable Hoy, Adithya M Primary Care Unavailable Flores Gievns Consulting Unavailable Ariela Kraft Consulting Unavailable Alyce Mcintosh Consulting Unavailable Berkley Giron Consulting Unavailable Jennifer Hatfield Consulting Unavailable Perla Bunn Consulting Unavailable Lena Tejeda Consulting Unavailable JilVirgilio K Consulting Unavailable Angelicas Kathy M Consulting Unavailable Michelle Echols Consulting Unavailable Oswaldo Washington Consulting Unavailable Bhavik Hull Consulting UnavailProsper Tejada Consulting Unavailable Eveyln Medina Consulting Unavailable Marcell Green Consulting Unavailable Kathe Lentz Consulting UnavailMary Pinzon Consulting Unavailable Tavon Zarco Consulting Unavailable Jorge Lopez Consulting Unavailable Sanjana Cortes Consulting Unavailable Michel Fuchs Unavailable Emil Magana Consulting Unavailable Tong Varma Consulting Unavailable Rhiannon Feldman Consulting Unavailable Avelina Houser Consulting Unavailable Rajat Silvestre Consulting Unavailab John Doll Consulting Unavailable Tod Curry Consulting Unavailable Maximus Arce Consulting Unavailable Tha Otto Consulting Unavailable Swathi Jones Consulting Unavailable Ricky Guzman Consulting Unavailable Juan C Santiago Consulting Unavailable Gina Franco Consulting Unavailable Vito Azar Consulting Unavailable AlexomaKhloe lee Consulting Unavailable Sabi Ruff Consulting Unavailable Adilene Barba Consulting Unavailable Janessa Negrete Consulting Unavailable Avi Khan Consulting Unavailable Los Constantino Consulting Unavailable Keaton Reyes Consulting Unavailable Adam Curry Consulting Unavailable Alisa Bauer Consulting Unavailable Michel Robbins Attending Unavailable Michel Robbins Admitting Unavailable Adithya Herrera Primary Care Unavailable Trino Cadet Attending Unavailable Trino Cadet Admitting Unavailable Adithya Herrera Primary Care Unavailable MD Michel Robbins Attending Provider Adithya Herrera Referring Unavailable Michel ROBBINS Attending Unavailable Michel ROBBINS Attending Unavailable Michel ROBBINS Attending Unavailable Adithya Herrera MD Primary Care Provider [phone] CHARLES TMI Referring Unavailable HOY, ADITHYA M Primary Care Unavailable XU TROY Attending Unavailable ADITHYA HERRERA Referring Unavailable SHARON ADITHYA M Primary Care Unavailable DAVE GARCIA Attending Unavailable DAVE GARCIA Referring Unavailable SHARON ADITHYA M Primary Care Unavailable DAVE GARCIA Admitting Unavailable DAVE GARCIA Attending Unavailable ADITHYA HERRERA Referring Unavailable HOY, ADITHYA M Primary Care Unavailable SHAI TIM Attending Unavail able AMEENAYADITHYA M Primary Care Unavailable XU TROY Attending Unavailable HOY, ADITHYA M Referring Unavailable HOY, ADITHYA M Primary Care Unavailable XU TROY Attending Unavailable HOY, ADITHYA M Referring Unavailable HOY, ADITHYA M Primary Care Unavailable DAVE GARCIA Attending Unavailable DAVE GARCIA E Referring Unavailable HOY, ADITHYA M Primary Care Unavailable DAVE GARCIA Admitting Unavailable DAVE GARCIA Attending Unavailable HOY, ADITHYA M Referring Unavailable HOY, ADITHYA M Primary Care Unavailable SCHUYLER SANDS Attending Unavailable SHARON, ADITHYA M Primary Care Unavailable DAVE GARCIA Admitting Unavailable DAVE GARCIA Attending Unavailable HOY, ADITHYA M Referring Unavailable HOY, ADITHYA M Primary Care Unavailable DAVE GARCIA Attending Unavailable DAVE GARCIA Referring Unavailable HOY, ADITHYA M Primary Care Unavailable XU TROY Attending Unavailable HOY, ADITHYA M Referring Unavailable HOY, ADITHYA M Primary Care Unavailable XU TROY Attending Unavailable HOY, ADITHYA M Referring Unavailable HOY, ADITHYA M Primary Care Unavailable DAVE GARCIA Attending Unavailable DAVE GARCIA E Referring Unavailable HOY, ADITHYA M Primary Care Unavailable DAVE GARCIA Admitting Unavailable DAVE GARCIA Attending Unavailable HOY, ADITHYA M Referring Unavailable HOY, ADITHYA M Primary Care Unavailable Adithya Herrera MD Primary Care Provider [phone] Allergies Allergy Classification Reported Allergen(s) Allergy Type Date of Onset Reaction(s) Facility (1 source) No Known Medication Allergies; Translations: [No Known Medication Allergies] Propensity to adverse reactions (disorder) [facility] Repository Medications Current Medications Medication Drug Class(es) Dates Sig (Normalized) Sig (Original) [id number] actuat albuterol 0.09 mg/actuat metered dose inhaler (20 sources) beta2-Adrenergic Agonist Start: 10-29-2023 take 1 [...] puffs every 4 (four) hours as needed. 10/04/2023 Active aspirin 81 mg delayed release oral tablet (20 sources) Platelet Aggregation Inhibitor, Nonsteroidal Anti-inflammatory Drug Start: 10-30-2023 take 1 tablet by mouth in the morning aspirin 81 mg Indications: Spinal stenosis of lumbar region with neurogenic claudication Take 1 tablet (81 mg total) by mouth in the morning. Ok to resume 10/30/23. 10/30/2023 Active Start: 05-22-2020 End: 10-29-2023 take 1 tablet by mouth once daily aspirin 81 mg Oral EC Tab 81 mg = 1 tab(s), Oral, Daily, Refills(s) 0 Start Date: 10/14/23 Status: Ordered take 1 tablet by eleni th once daily Aspirin 81 81 MG 1 tablet Orally Once a day Active take 1 tablet by eleni th once daily Aspirin 81 81 MG 1 tablet Orally Once a day Active 120 actuat budesonide 0.16 mg/actuat / formoterol fumarate 0.0045 mg/actuat metered dose inhaler (20 sources) Corticosteroid, beta2-Adrenergic Agonist Start: 10-29-2023 take 1 puff(s) by inhalation twice daily Budesonide-Formoterol (Symbicort) 160-4.5 mcg/actuation Hfa Aerosol Inhaler Active 2 PUFF INHALATION Twice daily 10.2 30 October 29, 2023 12:00am Start: 05-22-2020 End: [...] 04/19/2019 Active take 2 puff(s) by mo [facility] twice daily Symbicort 160-4.5 MCG/ACT INHALE 2 PUFFS BY MOUTH TWICE DAILY Inhalation for 30 Active cetirizine hydrochloride 10 mg oral tablet (20 sources) Histamine-1 Receptor Antagonist Start: 05-22-2020 End: 10-29-2023 take 1 tablet by mouth once daily as needed cetirizine 10 mg Tab 10 mg = 1 tab(s), Oral, Daily, PRN Allergy symptoms, Refills(s) 0 Start Date: 10/14/23 Status: Ordered cetirizine (ZyrT EC) 10 MG chewable tablet Chew 1 tablet (10 mg total) and swallow in the morning. Active take 2 tablets by mo [facility] every twenty-four hours Cetirizine HCl 10 MG 2 tablets Orally On ce a day Active cyclobenzaprine hydrochloride 5 mg oral tablet (13 sources) Muscle Relaxant Start: 10-27-2023 End: 10-29-2023 take 5 mg by mouth three times daily Cyclobenzaprine Discontinued 5 MG PO Three times daily October 27, 2023 12:00am October 29, 2023 9:45am Start: 10-23-2023 take 1 tablet by [facility] three times daily as needed for muscle spasms cyclobenzaprine (FLEXERIL) 5 mg tablet Indications: Spinal stenosis of lumbar region with neurogenic claudication Take 1 tablet (5 mg total) by mouth 3 (three) times a day as needed for muscle spasms. 30 tablet 10/23/2023 Active Start: 05-31-2020 End: 10-27-2023 take 10 mg by mouth three times daily Cyclobenzaprine Discontinued 10 MG PO Three times daily May 31, 2020 12:00am October 27, 2023 3:03pm dexamethasone 2 mg oral tablet (8 sources) Corticosteroid Start: 10-29-2023 take 2 mg by mouth twice daily Dexamethasone Active 2 MG PO Q8H October 29, 2023 12:00am TAPER: 2 mg every 8 hours for 5 Days; 2 mg twice daily for 5 Days Start: 10-27-2023 End: 11-06-2023 dexAMETHasone (DECADRON) 2 m g tablet Q8H 10/29/2023 Active diclofenac sodium 75 mg delayed release oral tablet (20 sources) Nonsteroidal Anti-inflammatory Drug Start: 06-07-2024 take 1 tablet by mouth in the morning, then take 1 tablet by mouth at bedtime diclofenac (VOLTAREN) 75 mg EC tablet Indications: Disorder of sacrum Take 1 tablet (75 mg total) by mouth in the morning and 1 tablet (75 mg total) before bedtime. 60 tablet 5 06/07/2024 Active Start: 10-14-2023 End: 06-07-2024 take 1 tablet by mouth in the morning, then take 1 tablet by mouth at bedtime diclofenac (VOLTAREN) 75 mg EC tablet Indications: Disorder of sacrum Take 1 tablet (75 mg total) by mouth in the morning and 1 tablet (75 mg total) before bedtime. 60 tablet 5 06/07/2024 Active Start: 03-02-2023 End: 09-16-2023 take 1 tablet [...] 2020 10:18am famotidine 20 mg oral tablet (10 sources) Histamine-2 Receptor Antagonist Start: 10-27-2023 End: 10-29-2023 take 1 tablet by mouth in the morning, then take 1 tablet by mouth at bedtime famotidine (PEPCID) 20 mg tablet Take 1 tablet (20 mg total) by mouth in the morning and 1 tablet (20 mg total) before bedtime. 10/27/2023 Active FLUoxetine 20 mg oral capsule (20 sources) Serotonin Reuptake Inhibitor Start: 10-29-2023 take 40 mg by mouth once daily in the morning Fluoxetine Active 40 MG PO Every morning October 29, 2023 12:00am Start: 05-22-2020 End: 10-29-2023 take 1 capsule by mouth once daily FLUoxetine 40 mg Cap 40 mg = 1 cap(s), Oral, Daily, Refills(s) 0 Start Date: 10/14/23 Status: Ordered gabapentin 800 mg oral tablet (20 sources) Anti-epileptic Agent Start: 06-07-2024 take 1 tablet by mouth three times daily gabapentin (NEURONTIN) 800 mg tablet Indications: Lumbosacral spondylosis without myelopathy Take 1 tablet (800 mg total) by mouth 3 (three) times a day. 90 tablet 1 06/07/2024 Active Start: 04-06-2024 End: 08-22-2024 take 1 tablet by mouth three times daily gabapentin (NEURONTIN) 800 mg tablet Indications: Lumbosacral spondylosis without myelopathy Take 1 tablet (800 mg total) by mouth 3 (three) times a day. 90 tablet 1 08/22/2024 Active Start: 08-03-2023 End: 04-04-2024 take 1 tablet by mouth three times daily gabapentin (NEURONTIN) 800 mg tablet Indications: Lumbosacral spondylosis without myelopathy Take 1 tablet (800 mg total) by mouth 3 (three) times a day. 90 tablet 1 01/20/2024 04/04/2024 Discontinued (Reorder) Start: 05-22-2020 End: 10-27-2023 take 1 tablet by mouth three times daily gabapentin 600 mg Tab 600 mg = 1 tab(s), Oral, TID, Refills(s) 0 Start Date: 10/14/23 Status: Ordered levothyroxine sodium 0.025 mg oral tablet (16 sources) l-Thyroxine take 1 tablet by mouth in the morning levothyroxine (SYNTHROID, LEVOTHROID) 25 MCG tablet Indications: hypothyroidism Take 1 tablet (25 mcg total) by mouth in the morning. Indications: a condition with low thyroid hormone levels. Active liothyronine sodium 0.005 mg oral tablet (20 sources) l-Triiodothyronine Start: 11-16-19 take 2 tablets by mouth once daily liothyronine 5 mcg Tab 10 mcg = 2 tab(s), Oral, Daily, Refills(s) 0 Start Date: 11/16/23 Status: Ordered Start: 10-27-2023 End: 10-29-2023 take 1 tablet by mouth once daily Liothyronine (Cytomel) 5 mcg Tablet Active 5 MCG PO Daily October 29, 2023 12:00am loratadine 10 mg oral tablet (5 sources) Start: 10-29-2023 take 10 mg by mouth once daily Loratadine Active 10 MG PO Daily October 29, 2023 12:00am methylPREDNISolone 4 mg oral tablet (3 sources) Corticosteroid Start: 12-02-2023 methylPREDNISolone (MEDROL, CHANELL,) 4 mg tablet Indications: Status post lumbar laminectomy Take 1 tablet (4 mg total) by mouth See Admin Instructions. Use as directed by package instructions 21 tablet 12/02/2023 Active Multi Vitamins oral tablet (2 sources) Start: 10-14-2023 take 1 tablet by mouth once daily Multi Vitamins oral tablet 1 tab(s), Oral, Daily, Refill(s) 0 Start Date: 10/14/23 Status: Ordered multivitamin capsule (20 sources) take 1 capsule by mouth in the morning multivitamin capsule Take 1 capsule by mouth in the morning. Active take 1 capsule by mouth in the m orning multivitamin capsule Take 1 capsule by mouth in the morning. 0 Active Multivitamin preparation (3 sources) Start: 05-22-2020 take 1 tablet by mouth once daily Multivitamin Active 1 TAB PO every day at noon May 22, 2020 12:00am Naloxone (8 sources) Opioid Antagonist Start: 10-27-2023 Naloxone Act kyle 1 SPRAY INTRANASAL Q3M October 27, 2023 12:00am Start: 10-23-2023 naloxone (NARC AN) 4 mg/actuation spray,non-aerosol nasal spray Administer 1 spray (4 mg total) into alternating nostrils as needed for opioid reversal. 1 each 10/23/2023 Active oxyCODONE hydrochloride 5 mg oral capsule (5 [...] baclofen 10 mg oral tablet (5 sources) gamma-Aminobutyric Acid-ergic Agonist End: 10-08-2023 take 1 tablet by mouth three times daily baclofen (LIORESAL) 10 mg tablet Take 1 tablet (10 mg total) by mouth 3 (three) times a day. 0 10/08/2023 Discontinued (Therapy completed) diazePAM 5 mg oral tablet (20 sources) Benzodiazepine Start: 10-27-2023 End: 11-06-2023 take 1 tablet by mouth every eight hours diazePAM (VALIUM) 5 mg tablet Indications: Post-op pain Take 1 tablet (5 mg total) by mouth every 8 (eight) hours for 10 days. 10/27/2023 11/06/2023 Start: 10-27-2023 take 2 mg by mouth e very six hours Diazepam Active 2 MG PO [...] 22, 2020 12:00am June 01, 2020 10:18am diazePAM 2.5 MG as directed Rectal Active morphine sulfate 15 mg extended release oral tablet (3 sources) Opioid Agonist Start: 05-31-2020 End: 10-27-2023 take 1 tablet by mouth every twelve hours Morphine (Ms Contin) 15 mg tablet extended release Discontinued 15 MG PO Q12H 20 May 31, 2020 October 27, 2023 2:56pm take w/enough water to swallow whole; do not crush/dissolve/chew/cut/break Prednisone (3 sources) Start: 05-31-2020 End: 10-27-2023 [...] History of lumbar fusion; Translations: [Arthrodesis status] 10-28-2023 Episodic Other connective tissue disease (7 sources) Arthrodesis status; Translations: [Arthrodesis status] Onset: 09-02-2023 Episodic Other nervous system disorders (4 sources) Chronic pain; Translations: [Other chronic pain] Chronic Other nervous system disorders (2 sources) Other chronic pain Onset: 08-05-2021 Resolved: 08-05-2021 Chronic Other nervous system disorders (4 sources) Other acute postprocedural pain; Translations: [Other acute postoperative pain] Onset: 10-25-2023 10-29-2023 Episodic Other non-traumatic joint disorders (4 sources) [...] disc disorders; other back problems (20 sources) Degeneration of lumbar intervertebral disc; Translations: [...] Onset: 02-05-2022 Episodic Other aftercare (1 source) alf (current) use of aspirin; Translations: [GROUP HOME CURRENT USE OF ASPIRIN] Onset: 02-05-2022 Episodic Other aftercare (1 source) Other custodial (current) drug therapy; Translations: [OTH GROUP HOME CURRENT DRUG THERAPY] Onset: 02-05-2022 Episodic Other gastrointestinal disorders (1 source) Diarrhea, unspecified; Translations: [DIARRHEA UNSPECIFIED] Onset: 02-05-2022 Episodic Other nervous system disorders (16 sources) Postoperative pain ; Translations: [Other acute postprocedural pain] Onset: 10-25-2023 10-28-2023 Episodic Other non-traumatic joint disorders (20 sources) Hip pain; Translations: [Pain in unspecified hip] Onset: 02-20-2021 03-12-2022 Episodic Residual codes; unclassified (2 sources) Chronic pain Onset: 08-03-2023 10-14-2023 Episodic Residual codes; unclassified (2 sources) Other specified postprocedural states; Translations: [Other specified postprocedural states] Onset: 12-02-2023 Episodic Residual codes; unclassified (3 sources) History of lumbar laminectomy; Translations: [Other specified postprocedural states] 11-10-2023 Episodic Unclassified (1 source) Low back pain, unspecified M54.50 Onset: 08-05-2021 Resolved: 08-05-2021 Unclassified (1 source) CONTACT W/AND (SUSP) EXPOS COVID-19; Translations: [CONTACT W/AND (SUSP) EXPOS COVID-19] Onset: 02-03-2022 Results Test Name Value Interpretation Reference Range Facility Ambulatory Visit Summaryon 0 12-29-2023 Ambulatory Visit Summary CELESTINO ZIEGLER :1970 Visit Date:12/29/2023 Ambulatory Visit Instructions Your Care Team Attending Physician - ROSENDO OROURKE, Michel Lee Primary Care Physician - Sharon OROURKE, Adithya This Is Your Medications List albuterol (Ventolin [...] for choosing us for your care. [facility] General Surgery Office/Clini c Noteon 12-29-2023 General [...] virus vaccine, inactivated 05/19/2023 Recorded SARS-CoV-2 (COVID-19) [id number] 04/28/2022 Recorded SARS-CoV-2 (COVID-19) mRNA BNT-162b2 vax 08/04/2021 Recorded SARS-CoV-2 (COVID-19) mRNA BNT-162b2 vax 11/16/2020 Recorded SARS-CoV-2 (COVID-19) mRNA BNT-162b2 vax 10/26/2020 Recorded [facility] Comment on above: Result Comment: Elec tronically Signed By: ROSENDO OROURKE, Michel Sue\Date and Time Signed: 12/29/23 16:49 EDT Reminderson 12-29-2023 Reminders - From: Terra Smith LPN To: N - Clinical; Sent: 12/29/2023 16:30:19 EDT Show up: 11/21/2033 07:00:00 EDT Subject: colonoscopy recall Due Date/Time: 12/21/2033 07:00:00 EDT Reminder/Recall Patient due for screening colonoscopy 12/21/2033. Normal [facility] Outside Colonoscopyon 2023 Outside Colonoscopy [id number]#[id number] F [facility] Pathology Noteon 12-24-2023 Pathology Note [id number]#1.00TIFF [facility] Roque 12-22-2023 L Specimen: [id number] Received: 12/22/23-1307 Status: SOUT Req Num: [id number] Spec Type: Surgical Subm Dr: Michel Robbins MD FACS Tissues: A Skin-Other than Cyst, tag, debridement or plastic repair (LT EAR LESION) Procedures: HE, Gross/Micro L4 Age/ Patient Sex Location Account Attending Physician NikkyisaiasCelestino Chu 53/M [facility] [id number] Michel Robbins MD FACS SPEC NUM: [id number] RECD: 12/22/23 STATUS: SHELLEY CADENA NUM: [id number] LONNIE: 12/22/[address] [facility] DR: Michel Robbins MD FACS ENTERED: 12/22/23 [facility] DR: Aurora Simons SPEC TYPE: Surgical DEPT: [...] EGD-normal, colonoscopy-normal lesion left ear CPT Codes 41501 Specimen: [id number] Received: 12/22/23 Status: SHELLEY Cadena Num: [id number] Spec Type: Surgical Subm Dr: Michel Robbins MD FACS Tissues: A Skin-Other than Cyst, tag, debridement or plastic repair (LT EAR LESION) Procedures: HE, Gross/Micro L4 Patient: Celestino Ziegler [id number] (Continued) Signed (signature on file) Jameson Garcia MD 12/23/23 1400 Normal [facility] Insurance Correspondenceon 0 12-03-2023 Insurance Correspondence [id number]#1.00TIFF [facility] Consent for Procedure/Surger yon 11-17-2023 Consent for Procedure/Surgery [id number] F [facility] Facesheeton 11-17-2023 Facesheet [id number]#1.00TIFF [facility] Ambulatory Visit Summaryon 0 11-16-2023 Ambulatory Visit Summary CELESTINO ZIEGLER :1970 Visit Date:11/16/2023 Ambulatory Visit Instructions Your Care Team Attending Physician - ROSENDO OROURKE, Michel Lee Primary Care Physician - Adithya Herrera MD Referring Physician - Adithya Herrera MD This Is Your Medications List Contact prescribing [...] for choosing us for your care. [facility] Alanine aminotransferase [En zymatic activity/volume] in Serum or PlasmaOrdered By: Qasim Mancilla on 10-28-2023 ALT [Catalytic activity/Vol] 7 U/L 7-52 [facility] Albumin [Mass/volume] in Ser um or Plasma by Bromocresol green (BCG) dye binding methoOrdered By: Qasim Mancilla on 10-28-2023 Albumin BCG dye [Mass/Vol] 3.9 g/dL 3.5-5.7 [facility] Alkaline phosphatase [Enzyma tic activity/volume] in Serum or PlasmaOrdered By: Qasim Mancilla on 10-28-2023 ALP [Catalytic activity/Vol] 57 U/L 34-104 [facility] Aspartate aminotransferase [ Enzymatic activity/volume] in Serum or PlasmaOrdered By: Qasim Mancilla on 10-28-2023 AST [Catalytic activity/Vol] 7 U/L 13-39 [facility] Basophils Auto (Bld) [#/Vol] Ordered By: Qasim Mancilla on 10-28-2023 Basophils (Bld) [#/Vol] 0.0 10*3/uL 0.0-0.2 [facility] Basophils/100 WBC Auto (Bld) Ordered By: Qasim Mancilla on 10-28-2023 Basophils/100 WBC (Bld) 0.3 % . [facility] Bilirubin.total [Mass/volume ] in Serum or PlasmaOrdered By: Qasim Mancilla on 10-28-2023 Bilirubin [Mass/Vol] 0.5 mg/dL 0.3-1.0 [facility] Calcium [Mass/volume] in Ser um or PlasmaOrdered By: Qasim Mancilla on 10-28-2023 Calcium [Mass/Vol] 8.8 mg/dL 8.6-10.3 [facility] Carbon dioxide, total [Moles /volume] in Serum or PlasmaOrdered By: Qasim Mancilla on 10-28-2023 CO2 [Moles/Vol] 27.8 mmol/L 21.0-31.0 [facility] Chloride [Moles/volume] in S felicita or PlasmaOrdered By: Qasim Mancilla on 10-28-2023 Chloride [Moles/Vol] 106 mmol/L 98-107 [facility] Complete Blood Count Auto Di ffon 10-28-2023 Basophils (Bld) [#/Vol] 0.0 10*3/uL Normal 0.0-0.2 [facility] Comment on above: Result Comment: PERF ORMED BY: [place] [address] PATHOLOGIST MEAT SUPERVISOR MARK ARIAS M.D. Performed By: #### C BC, CMP, PAB #### [address] Basophils/100 WBC (Bld) 0.3 % Normal . [facility] Comment on above: Performed By: #### C BC, CMP, PAB #### [address] Eosinophils (Bld) [#/Vol] 0.0 10*3/uL Normal 0.0-0.45 [facility] Comment on above: Performed By: #### C BC, CMP, PAB #### [place] [address] [place] Eosinophils/100 WBC (Bld) 0.4 % Normal . [facility] Comment on above: Performed By: #### C BC, CMP, PAB #### [address] Erythrocyte distribution width (RBC) [Ratio] 13.4 % Normal 12.0-14.8 [facility] Comment on above: Performed By: #### C BC, CMP, PAB #### [address] Hematocrit (Bld) [Volume fraction] 38.3 % Low 38.8-50.0 [facility] Comment on above: Performed By: #### C BC, CMP, PAB #### [address] Hemoglobin (Bld) [Mass/Vol] 12.7 g/dL Low 13.0-17.0 [facility] Comment on above: Performed By: #### C BC, CMP, PAB #### [address] Lymphocytes (Bld) [#/Vol] 2.1 10*3/uL Normal 1.00-4.8 [facility] Comment on above: Performed By: #### C BC, CMP, PAB #### [address] Lymphocytes/100 WBC (Bld) 28.7 % Normal . [facility] Comment on above: Performed By: #### C BC, CMP, PAB #### [address] MCH (RBC) [Entitic mass] 30.9 pg Normal 27.5-35.2 [facility] Comment on above: Performed By: #### C BC, CMP, PAB #### [address] MCV (RBC) [Entitic vol] 93.0 fL Normal 83.5-101 [facility] Comment on above: Performed By: #### C BC, CMP, PAB #### [address] Mean Corpuscular HGB Conc 33.3 g/dL Normal 32.5-35.6 [facility] Comment on above: Performed By: #### C BC, CMP, PAB #### [address] Monocytes (Bld) [#/Vol] 0.7 10*3/uL Normal 0.0-0.8 [facility] Comment on above: Performed By: #### C BC, CMP, PAB #### [facility] [address] [id number] [place] Monocytes/100 WBC (Bld) 9.6 % Normal . [facility] Comment on above: Performed By: #### C BC, CMP, PAB #### [facility] [address] [id number] [place] Neutrophils (Bld) [#/Vol] 4.5 10*3/uL Normal 1.8-7.7 [facility] Comment on above: Performed By: #### C BC, CMP, PAB #### [facility] [address] [phone] [place] Neutrophils/100 WBC (Bld) 61.0 % Normal . [facility] Comment on above: Performed By: #### C BC, CMP, PAB #### [facility] [address] [place] [address] [place] NRBC% 0.1 /100{WBC} Normal 0-0.5 [facility] Comment on above: Performed By: #### C BC, CMP, PAB #### [facility] [address] [phone] [place] Platelet mean volume (Bld) [Entitic vol] 8.7 fL Normal 6.6-10.1 [facility] Comment on above: Performed By: #### C BC, CMP, PAB #### [facility] [address] [place] [address] [place] Platelets (Bld) [#/Vol] 227 10*3/uL Normal 150-450 [facility] Comment on above: Performed By: #### C BC, CMP, PAB #### [facility] [address] [place] [address] [place] RBC (Bld) [#/Vol] 4.12 10*6/uL Normal 3.90-5.60 [facility] Comment on above: Performed By: #### C BC, CMP, PAB #### [facility] [address] [place] [address] [place] WBC (Bld) [#/Vol] 7.4 10*3/uL Normal 4.1-10.5 [facility] Comment on above: Performed By: #### C BC, CMP, PAB #### [address] Comprehensive Metabolic Pane roque 10-28-2023 Albumin [Mass/Vol] 3.9 g/dL Normal 3.5-5.7 [facility] Comment on above: Performed By: #### C BC, CMP, PAB #### [address] Albumin/Globulin [Mass ratio] 1.7 {ratio} Normal [facility] Comment on above: Performed By: #### C BC, CMP, PAB #### [address] ALP [Catalytic activity/Vol] 57 U/L Normal 34-104 [facility] Comment on above: Performed By: #### C BC, CMP, PAB #### [address] ALT [Catalytic activity/Vol] 7 U/L Normal 7-52 [facility] Comment on above: Performed By: #### C BC, CMP, PAB #### [address] Anion gap [Moles/Vol] 11.6 mmol/L Normal 6.0-15.0 [facility] Comment on above: Performed By: #### C BC, CMP, PAB #### [address] AST [Catalytic activity/Vol] 7 U/L Low 13-39 [facility] Comment on above: Performed By: #### C BC, CMP, PAB #### [address] Bilirubin [Mass/Vol] 0.5 mg/dL Normal 0.3-1.0 [facility] Comment on above: Performed By: #### C BC, CMP, PAB #### [address] Calcium [Mass/Vol] 8.8 mg/dL Normal 8.6-10.3 [facility] Comment on above: Performed By: #### C BC, CMP, PAB #### [facility] [address] [place] [address] [place] Chloride [Moles/Vol] 106 mmol/L Normal 98-107 [facility] Comment on above: Performed By: #### C BC, CMP, PAB #### [facility] [address] CO2 [Moles/Vol] 27.8 mmol/L Normal 21.0-31.0 [facility] Comment on above: Performed By: #### C BC, CMP, PAB #### [address] Creatinine [Mass/Vol] 0.89 mg/dL Normal 0.70-1.30 [facility] Comment on above: Performed By: #### C BC, CMP, PAB #### [place] [address] [place] Creatinine Clr Calc Pharmacy 103.39 Normal [facility] Comment on above: Performed By: #### C BC, CMP, PAB #### [place] [address] [place] GFR/1.73 sq M.predicted MDRD (S/P/Bld) [Vol rate/Area] mL/min/{1.73_m2} Normal [facility] Comment on above: Performed By: #### C BC, CMP, PAB #### [address] Globulin (S) [Mass/Vol] 2.3 g/dL Normal [facility] Comment on above: Performed By: #### C BC, CMP, PAB #### [place] [address] [place] Glucose [Mass/Vol] 109 mg/dL High 70-100 [facility] Comment on above: Result Comment: Vevay om Glucose Reference Range is dependent on time and content of last meal. Glucose of more than 200 mg/dL in a nonstressed, ambulatory subject supports the diagnosis of Diabetes Mellitus. ADA recommended reference range Performed By: #### C BC, CMP, PAB #### [facility] [address] [phone] [place] Potassium [Moles/Vol] 4.4 mmol/L Normal 3.5-5.1 [facility] Comment on above: Performed By: #### C BC, CMP, PAB #### [facility] [address] [phone] [place] Protein [Mass/Vol] 6.2 g/dL Low 6.4-8.9 [facility] Comment on above: Performed By: #### C BC, CMP, PAB #### [facility] [address] [phone] [place] Sodium [Moles/Vol] 141 mmol/L Normal 136-145 [facility] Comment on above: Performed By: #### C BC, CMP, PAB #### [facility] [address] [phone] [place] Urea nitrogen [Mass/Vol] 26 mg/dL High 7-25 [facility] Comment on above: Performed By: #### C BC, CMP, PAB #### [facility] [address] [phone] [place] Creatinine [Mass/volume] in Serum or PlasmaOrdered By: Qasim Mancilla on 10-28-2023 Creatinine [Mass/Vol] 0.89 mg/dL 0.70-1.30 [facility] Eosinophils Auto (Bld) [#/Vo l]Ordered By: Qasim Mancilla on 10-28-2023 Eosinophils (Bld) [#/Vol] 0.0 10*3/uL 0.0-0.45 [facility] Eosinophils/100 WBC Auto (Bl d)Ordered By: Qasim Mancilla on 10-28-2023 Eosinophils/100 WBC (Bld) 0.4 % . [facility] Erythrocyte distribution wid th Auto (RBC) [Ratio]Ordered By: Qasim Mancilla on 10-28-2023 Erythrocyte distribution width (RBC) [Ratio] 13.4 % 12.0-14.8 [facility] Globulin Calc (S) [Mass/Vol] Ordered By: Qasim Mancilla on 10-28-2023 Globulin (S) [Mass/Vol] 2.3 g/dL [facility] Glucose [Mass/volume] in Ser um or PlasmaOrdered By: Qasim Mancilla on 10-28-2023 Glucose [Mass/Vol] 109 mg/dL 70-100 [facility] Comment on above: ADA recommended refe rence rangeRandom Glucose Reference Range is dependent on time and content of last meal. Glucose of more than 200 mg/dL in a nonstressed, ambulatory subject supports the diagnosis of Diabetes Mellitus. Hematocrit Auto (Bld) [Volum e fraction]Ordered By: Qasim Mancilla on 10-28-2023 Hematocrit (Bld) [Volume fraction] 38.3 % 38.8-50.0 [facility] Hemoglobin [Mass/volume] in BloodOrdered By: Qasim Mancilla on 10-28-2023 Hemoglobin (Bld) [Mass/Vol] 12.7 g/dL 13.0-17.0 [facility] Leukocytes [#/volume] correc deon for nucleated erythrocytes in Blood by Automated counOrdered By: Qasim Maniclla on 10-28-2023 WBC corrected for nucl RBC Auto (Bld) [#/Vol] 7.4 10*3/uL 4.1-10.5 [facility] Lymphocytes Auto (Bld) [#/Vo l]Ordered By: Qasim Mancilla on 10-28-2023 Lymphocytes (Bld) [#/Vol] 2.1 10*3/uL 1.00-4.8 [facility] Lymphocytes/100 WBC Auto (Bl d)Ordered By: Qasim Mancilla on 10-28-2023 Lymphocytes/100 WBC (Bld) 28.7 % . [facility] MCH Auto (RBC) [Entitic mass ]Ordered By: Qasim Mancilla on 10-28-2023 MCH (RBC) [Entitic mass] 30.9 pg 27.5-35.2 [facility] MCHC Auto (RBC) [Mass/Vol]Or dered By: Qasim Mancilla on 10-28-2023 MCHC (RBC) [Mass/Vol] 33.3 g/dL 32.5-35.6 [facility] MCV Auto (RBC) [Entitic vol] Ordered By: Qasim Mancilla on 10-28-2023 MCV (RBC) [Entitic vol] 93.0 fL 83.5-101 [facility] Monocytes Auto (Bld) [#/Vol] Ordered By: Qasim Mancilla on 10-28-2023 Monocytes (Bld) [#/Vol] 0.7 10*3/uL 0.0-0.8 [facility] Monocytes/100 WBC Auto (Bld) Ordered By: Qasim Mancilla on 10-28-2023 Monocytes/100 WBC (Bld) 9.6 % . [facility] Neutrophils Auto (Bld) [#/Vo l]Ordered By: Qasim Mancilla on 10-28-2023 Neutrophils (Bld) [#/Vol] 4.5 10*3/uL 1.8-7.7 [facility] Neutrophils/100 WBC Auto (Bl d)Ordered By: Qasim Mancilla on 10-28-2023 Neutrophils/100 WBC (Bld) 61.0 % . [facility] No Panel InformationOrdered By: Qasim Mancilla on 10-28-2023 Estimated GFR (CKD-EPI) > 60.0 mL/Min [facility] Creatinine Clearance (Chem 103.39 [facility] Nucleated erythrocytes [Pres ence] in Blood by Automated countOrdered By: Qasim Mancilla on 10-28-2023 Nucleated RBC Auto Ql (Bld) 0.1 /100{WBC} 0-0.5 [facility] Platelet mean volume Auto (B ld) [Entitic vol]Ordered By: Qasim Mancilla on 10-28-2023 Platelet mean volume (Bld) [Entitic vol] 8.7 fL 6.6-10.1 [facility] Platelets Auto (Bld) [#/Vol] Ordered By: Qasim Mancilla on 10-28-2023 Platelets (Bld) [#/Vol] 227 10*3/uL 150-450 [facility] Potassium [Moles/volume] in Serum or PlasmaOrdered By: Qasim Mancilla on 10-28-2023 Potassium [Moles/Vol] 4.4 mmol/L 3.5-5.1 [facility] Prealbuminon 10-28-2023 Prealbumin [Mass/Vol] 25.1 mg/dL Normal 17.0-34.0 [facility] Comment on above: Result Comment: PERF ORMED BY: [facility] [address] [place] [address] PATHOLOGIST MEAT SUPERVISOR MARK ARIAS M.D. Performed By: #### C BC, CMP, PAB #### [address] Prealbumin [Mass/volume] in Serum or PlasmaOrdered By: Qasim Mancilla on 10-28-2023 Prealbumin [Mass/Vol] 25.1 mg/dL 17.0-34.0 [facility] Protein [Mass/volume] in Ser um or PlasmaOrdered By: Qasim Mancilla on 10-28-2023 Protein [Mass/Vol] 6.2 g/dL 6.4-8.9 [facility] RBC Auto (Bld) [#/Vol]Ordere d By: Qasim Mancilla on 10-28-2023 RBC (Bld) [#/Vol] 4.12 10*6/uL 3.90-5.60 [facility] Serum or plasma albumin/glob ulin mass ratioOrdered By: Qasim Mancilla on 10-28-2023 Albumin/Globulin [Mass ratio] 1.7 {ratio} [facility] Serum or plasma anion gap de terminationOrdered By: Qasim Mancilla on 10-28-2023 Anion gap [Moles/Vol] 11.6 mmol/L 6.0-15.0 [facility] Sodium [Moles/volume] in Ser um or PlasmaOrdered By: Qasim Mancilla on 10-28-2023 Sodium [Moles/Vol] 141 mmol/L 136-145 [facility] Urea nitrogen [Mass/volume] in Serum or PlasmaOrdered By: Qasim Mancilla on 03-14-2024 Urea nitrogen [Mass/Vol] 26 mg/dL 7-25 [facility] WBC Auto (Bld) [#/Vol]Ordere d By: Qasim Mancilla on 10-28-2023 WBC (Bld) [#/Vol] 7.4 10*3/uL 4.1-10.5 [facility] BASIC METABOLIC PANLon 10-24 Anion gap [Moles/Vol] 9 mmol/L Normal 5-15 [facility] Comment on above: Performed By: #### H H, BMP ####[facility] ([id number])[address] [address] [place] [address] Calcium [Mass/Vol] 9.1 mg/dL Normal 8.5-10.5 [facility] Comment on above: Performed By: #### H H, BMP ####[facility] ([id number])[address], [address] [place] [address] Chloride [Moles/Vol] 104 mmol/L Normal 98-109 [facility] Comment on above: Performed By: #### H H, BMP ####[facility] ([id number])[address] [address] [place] [address] CO2 [Moles/Vol] 28 mmol/L Normal 22-32 [facility] Comment on above: Performed By: #### H H, BMP ####[facility] ([id number])[address] [address] [place] [address] Creatinine [Mass/Vol] 0.69 mg/dL Normal 0.60-1.30 [facility] Comment on above: Result Comment: METH OD TRACEABLE TO IDMS STANDARD Performed By: #### H H, BMP ####[facility] ([id number])[address] [address] [place] [address] eGFR (CKD-EPI) NON-RACE DEPENDENT >90 Normal >59 [facility] Comment on above: Result Comment: Reported eGFR is based on the CKD-EPI 2020 equation that does not use a race coefficient. Performed By: #### H H, BMP ####[facility] ([id number])[address] [address] Glucose [Mass/Vol] 102 mg/dL High 65-99 [facility] Comment on above: Performed By: #### H H, BMP ####[facility] ([id number])[address], [place] [address] Potassium [Moles/Vol] 3.9 mmol/L Normal 3.5-5.0 [facility] Comment on above: Performed By: #### H H, BMP ####[facility] ([id number])[address], [place] [address] Sodium [Moles/Vol] 141 mmol/L Normal 134-146 [facility] Comment on above: Performed By: #### H H, BMP ####[facility] ([id number])[address] [address], [place] [address] Urea nitrogen [Mass/Vol] 20 mg/dL Normal 5-23 [facility] Comment on above: Performed By: #### H H, BMP ####[facility] ([id number])[address] [address], [place] [address] HGB AND HCTon 10-25-2023 Hematocrit (Bld) [Volume fraction] 36.2 % Low 39-49 [facility] Comment on above: Performed By: #### H H, BMP ####[facility] ([id number])[address] [address] [place] [address] Hemoglobin (Bld) [Mass/Vol] 12.1 g/dL Low 13.0-17.0 [facility] Comment on above: Performed By: #### H H, BMP ####[facility] ([id number])[address], [place] [address] BASIC METABOLIC PANLon 10-23 Anion gap [Moles/Vol] 10 mmol/L Normal 5-15 [facility] Comment on above: Performed By: #### H H, BMP ####[facility] ([id number])[address] [address] [address] Calcium [Mass/Vol] 8.7 mg/dL Normal 8.5-10.5 [facility] Comment on above: Performed By: #### H H, BMP ####[facility] ([id number])[address] [address], [place] [address] Chloride [Moles/Vol] 107 mmol/L Normal 98-109 [facility] Comment on above: Performed By: #### H H, BMP ####[facility] ([id number])[address] [address], [place] [address] CO2 [Moles/Vol] 28 mmol/L Normal 22-32 [facility] Comment on above: Performed By: #### H H, BMP ####[facility] ([id number])[address] [place] [address] Creatinine [Mass/Vol] 0.73 mg/dL Normal 0.60-1.30 [facility] Comment on above: Result Comment: METH OD TRACEABLE TO IDMS STANDARD Performed By: #### H H, BMP ####[facility] ([id number])[address] [address] [place] [address] eGFR (CKD-EPI) NON-RACE DEPENDENT >90 Normal >59 [facility] Comment on above: Result Comment: Reported eGFR is based on the CKD-EPI 2020 equation that does not use a race coefficient. Performed By: #### H H, BMP ####[facility] ([id number])[address] [address] [place] [address] Glucose [Mass/Vol] 94 mg/dL Normal 65-99 [facility] Comment on above: Performed By: #### H H, BMP ####[facility] ([id number])[address] [place] [address] Potassium [Moles/Vol] 4.1 mmol/L Normal 3.5-5.0 [facility] Comment on above: Performed By: #### H H, BMP ####[facility] ([id number])[address], [place] [address] Sodium [Moles/Vol] 145 mmol/L Normal 134-146 [facility] Comment on above: Performed By: #### H H, BMP ####[facility] ([id number])[address], [place] [address] Urea nitrogen [Mass/Vol] 20 mg/dL Normal 5-23 [facility] Comment on above: Performed By: #### H H, BMP ####[facility] ([id number])[address], [place] [address] HGB AND HCTon 10-24-2023 Hematocrit (Bld) [Volume fraction] 35.0 % Low 39-49 [facility] Comment on above: Performed By: #### H H, BMP ####[facility] ([id number])[address] [place] [address] Hemoglobin (Bld) [Mass/Vol] 11.9 g/dL Low 13.0-17.0 [facility] Comment on above: Performed By: #### H H, BMP ####[facility] ([id number])[address] [place] [address] BASIC METABOLIC PANLon 10-22 Anion gap [Moles/Vol] 6 mmol/L Normal 5-15 [facility] Comment on above: Performed By: #### H H, BMP ####[facility] ([id number])[address], [place] [address] Calcium [Mass/Vol] 8.4 mg/dL Low 8.5-10.5 [facility] Comment on above: Performed By: #### H H, BMP ####[facility] ([id number])[address], [place] [address] Chloride [Moles/Vol] 106 mmol/L Normal 98-109 [facility] Comment on above: Performed By: #### H H, BMP ####[facility] ([id number])[address] [address] CO2 [Moles/Vol] 29 mmol/L Normal 22-32 [facility] Comment on above: Performed By: #### H H, BMP ####[facility] ([id number])[address] [address] [address] Creatinine [Mass/Vol] 0.76 mg/dL Normal 0.60-1.30 [facility] Comment on above: Result Comment: METH OD TRACEABLE TO IDMS STANDARD Performed By: #### H H, BMP ####[facility] ([id number])[address] [address], [place] [address] eGFR (CKD-EPI) NON-RACE DEPENDENT >90 Normal >59 [facility] Comment on above: Result Comment: Reported eGFR is based on the CKD-EPI 2020 equation that does not use a race coefficient. Performed By: #### H H, BMP ####[facility] ([id number])[address], [place] [address] Glucose [Mass/Vol] 99 mg/dL Normal 65-99 [facility] Comment on above: Performed By: #### H H, BMP ####[facility] ([id number])[address], [place] [address] Potassium [Moles/Vol] 4.1 mmol/L Normal 3.5-5.0 [facility] Comment on above: Performed By: #### H H, BMP ####[facility] ([id number])[address], [address] [place] [address] Sodium [Moles/Vol] 141 mmol/L Normal 134-146 [facility] Comment on above: Performed By: #### H H, BMP ####[facility] ([id number])[address] [address] [place] [address] Urea nitrogen [Mass/Vol] 15 mg/dL Normal 5-23 [facility] Comment on above: Performed By: #### H H, BMP ####[facility] ([id number])[address] [address] HGB AND HCTon 10-23-2023 Hematocrit (Bld) [Volume fraction] 36.0 % Low 39-49 [facility] Comment on above: Performed By: #### H H, BMP ####[facility] ([id number])[address] [address] Hemoglobin (Bld) [Mass/Vol] 12.0 g/dL Low 13.0-17.0 [facility] Comment on above: Performed By: #### H H, BMP ####[facility] ([id number])[address] [address] MR LUMBAR SPINE WO CONTon MR LUMBAR [...] Avitia MD on 10/23/2023 2:26 PM Normal [facility] BASIC METABOLIC PANLon 10-21 Anion gap [Moles/Vol] 5 mmol/L Normal 5-15 [facility] Comment on above: Performed By: #### H H, BMP ####[facility] ([id number])[address] [address] Calcium [Mass/Vol] 8.5 mg/dL Normal 8.5-10.5 [facility] Comment on above: Performed By: #### H H, BMP ####[facility] ([id number])[address] [address] Chloride [Moles/Vol] 108 mmol/L Normal 98-109 [facility] Comment on above: Performed By: #### H H, BMP ####[facility] ([id number])[address], [address] [place] [address] CO2 [Moles/Vol] 28 mmol/L Normal 22-32 [facility] Comment on above: Performed By: #### H H, BMP ####[facility] ([id number])[address], [address] [place] [address] Creatinine [Mass/Vol] 0.77 mg/dL Normal 0.60-1.30 [facility] Comment on above: Result Comment: METH OD TRACEABLE TO IDMS STANDARD Performed By: #### H H, BMP ####[facility] ([id number])[address] [address] [place] [address] eGFR (CKD-EPI) NON-RACE DEPENDENT >90 Normal >59 [facility] Comment on above: Result Comment: Reported eGFR is based on the CKD-EPI 2020 equation that does not use a race coefficient. Performed By: #### H H, BMP ####[facility] ([id number])[address] [address] [place] [address] Glucose [Mass/Vol] 112 mg/dL High 65-99 [facility] Comment on above: Performed By: #### H H, BMP ####[facility] ([id number])[address] [address] [place] [address] Potassium [Moles/Vol] 4.6 mmol/L Normal 3.5-5.0 [facility] Comment on above: Performed By: #### H H, BMP ####[facility] ([id number])[address] [address] [place] [id number] Sodium [Moles/Vol] 141 mmol/L Normal 134-146 [facility] Comment on above: Performed By: #### H H, BMP ####[facility] ([id number])[address] [address] [place] [address] [id number] Urea nitrogen [Mass/Vol] 12 mg/dL Normal 5-23 [facility] Comment on above: Performed By: #### H H, BMP ####[facility] ([id number])[address], [address] [place] [address] [place] [employer] G[employer] SPINAL PU NCTURE OPERATIVEon [...] Vitor Mirza on 10/22/2023 12:33 PM Normal [facility] HGB AND HCTon 10-22-2023 Hematocrit (Bld) [Volume fraction] 37.0 % Low 39-49 [facility] Comment on above: Performed By: #### H H, BMP #### [facility] ([id number]) [address], [address] [place] [address] Hemoglobin (Bld) [Mass/Vol] 12.6 g/dL Low 13.0-17.0 [facility] Comment on above: Performed By: #### H H, BMP #### [facility] ([id number]) [address], [address] [place] [address] Bacteria identified Cx Nom ( U)on 10-09-2023 Service comment (Unsp spec) [Interp] NO GROWTH AT <1000 CFU/mL [facility] ABO Rh Repeaton 10-08-2023 ABO O [facility] Rh Nom (Bld) Positive [facility] APTTon 10-08-2023 aPTT Coag (PPP) [Time] 40 s High [facility] BASIC METABOLIC PANLon 10-08 Anion gap [Moles/Vol] 9 mmol/L Normal 5-15 [facility] Comment on above: Performed By: #### C BCA, BMP, PINR, 08817-3 #### [facility] ([id number]) [address], [address] [place] [address] Calcium [Mass/Vol] 9.4 mg/dL Normal 8.5-10.5 [facility] Comment on above: Performed By: #### C BCA, BMP, PINR, 31853-2 #### [facility] ([id number]) [address], [address] [place] [address] Chloride [Moles/Vol] 104 mmol/L Normal 98-109 [facility] Comment on above: Performed By: #### C BCA, BMP, PINR, 28224-4 #### [facility] ([id number]) [address], [address] [place] [address] CO2 [Moles/Vol] 28 mmol/L Normal 22-32 [facility] Comment on above: Performed By: #### C BCA, BMP, PINR, 75971-9 #### [facility] ([id number]) [address], [address] [place] [address] Creatinine [Mass/Vol] 0.95 mg/dL Normal 0.60-1.30 [facility] Comment on above: Result Comment: METH OD TRACEABLE TO IDMS STANDARD Performed By: #### C BCA, BMP, PINR, 04365-7 #### [facility] ([id number]) [address], [address] [place] [address] eGFR (CKD-EPI) NON-RACE DEPENDENT >90 Normal >59 [facility] Comment on above: Result Comment: Reported eGFR is based on the CKD-EPI 2020 equation that does not use a race coefficient. Performed By: #### C BCA, BMP, PINR, 30670-3 #### [facility] ([id number]) [address], [address] [place] [address] Glucose [Mass/Vol] 96 mg/dL Normal 65-99 [facility] Comment on above: Performed By: #### C BCA, BMP, PINR, 80071-5 #### [facility] ([id number]) [address], [address] [place] [address] Potassium [Moles/Vol] 4.1 mmol/L Normal 3.5-5.0 [facility] Comment on above: Performed By: #### C BCA, BMP, PINR, 65192-1 #### [facility] ([id number]) [address], [address] [place] [address] Sodium [Moles/Vol] 141 mmol/L Normal 134-146 [facility] Comment on above: Performed By: #### C BCA, BMP, PINR, 02992-8 #### [facility] ([id number]) [address], [address] [place] [address] Urea nitrogen [Mass/Vol] 13 mg/dL Normal 5-23 [facility] Comment on above: Performed By: #### C BCA, BMP, PINR, 62195-8 #### [facility] ([id number]) [address], [address] [place] [address] Basic Metabolic Panelon 09-17 Anion gap [Moles/Vol] 9 mmol/L 5 - 15 mmol/L [facility] Calcium [Mass/Vol] 9.4 mg/dL 8.5 - 10. 5 mg/dL [facility] Chloride [Moles/Vol] 104 mmol/L 98 - 10 9 mmol/L [facility] CO2 [Moles/Vol] 28 mmol/L 22 - 32 mmol/L [facility] Creatinine [Mass/Vol] 0.95 mg/dL 0.60 - 1.30 mg/dL [facility] Comment on above: METHOD TRACEABLE TO IDMS STANDARD eGFR (CKD-EPI)non-race dependent - PINF [facility] Comment on above: Reported eGFR is based on the CKD-EPI 2020 equation that does not use a race coefficient. Glucose [Mass/Vol] 96 mg/dL 65 - 99 mg/dL [facility] Potassium [Moles/Vol] 4.1 mmol/L 3.5 - 5.0 mmol/L [facility] Sodium [Moles/Vol] 141 mmol/L 134 - 146 mmol/L [facility] Urea nitrogen [Mass/Vol] 13 mg/dL 5 - 23 mg/dL [facility] CBC AND AUTO DIFFon 10-08-19 ABSOLUTE BASOPHIL 0.0 X10E9/L Normal 0.0-0.2 [facility] Comment on above: Performed By: #### C BCA, BMP, PINR, 72082-3 #### [facility] ([id number]) [address], [address] [place] [address] ABSOLUTE NEUTROPHIL 4.2 X10E9/L Normal 1.5-6.6 [facility] Comment on above: Performed By: #### C BCA, BMP, PINR, 39106-8 #### [facility] ([id number]) [address], [address] [place] [address] Basophils/100 WBC (Bld) 0.7 % Normal [facility] Comment on above: Performed By: #### C BCA, BMP, PINR, 07167-0 #### [facility] ([id number]) [address], [address] [place] [address] Eosinophils (Bld) [#/Vol] 0.1 10*3/uL Normal 0.0-0.4 [facility] Comment on above: Performed By: #### C BCA, BMP, PINR, 96417-3 #### [facility] ([id number]) [address], [address] [place] [address] Eosinophils/100 WBC (Bld) 1.1 % Normal [facility] Comment on above: Performed By: #### C BCA, BMP, PINR, 56522-5 #### [facility] ([id number]) [address], [address] [place] [address] Erythrocyte distribution width (RBC) [Ratio] 14.0 % Normal 11.5-15.0 [facility] Comment on above: Performed By: #### C BCA, BMP, PINR, 02725-0 #### [facility] ([id number]) [address], [address] [place] [address] Hematocrit (Bld) [Volume fraction] 39.4 % Normal 39-49 [facility] Comment on above: Performed By: #### C BCA, BMP, PINR, 93770-6 #### [facility] ([id number]) [address] [address] [place] [address] Hemoglobin (Bld) [Mass/Vol] 13.3 g/dL Normal 13.0-17.0 [facility] Comment on above: Performed By: #### C BCA, BMP, PINR, 89824-4 #### [facility] ([id number]) [address] [address] Lymphocytes (Bld) [#/Vol] 2.2 10*3/uL Normal 1.0-3.5 [facility] Comment on above: Performed By: #### C BCA, BMP, PINR, 56266-4 #### [facility] ([id number]) [address] [address] Lymphocytes/100 WBC (Bld) 31.4 % Normal [facility] Comment on above: Performed By: #### C BCA, BMP, PINR, 35000-7 #### [facility] ([id number]) [address] [address] MCH (RBC) [Entitic mass] 31.2 pg Normal 27-34 [facility] Comment on above: Performed By: #### C BCA, BMP, PINR, 92265-7 #### [facility] ([id number]) [address] [address] [place] [address] MCHC (RBC) [Mass/Vol] 33.7 g/dL Normal 32-36 [facility] Comment on above: Performed By: #### C BCA, BMP, PINR, 85741-4 #### [facility] ([id number]) [address] [address] MCV (RBC) [Entitic vol] 93 fL Normal 80-100 [facility] Comment on above: Performed By: #### C BCA, BMP, PINR, 91033-6 #### [facility] ([id number]) [address], [facility] [address] [place] [address] Monocytes (Bld) [#/Vol] 0.5 10*3/uL Normal 0-0.9 [facility] Comment on above: Performed By: #### C BCA, BMP, PINR, 43608-8 #### [facility] ([id number]) [address], [facility] [address] [place] [address] Monocytes/100 WBC (Bld) 7.2 % Normal [facility] Comment on above: Performed By: #### C BCA, BMP, PINR, 84939-2 #### [facility] ([id number]) [address], [address] [place] [address] Neutrophils/100 WBC (Bld) 59.6 % Normal [facility] Comment on above: Performed By: #### C BCA, BMP, PINR, 72029-4 #### [facility] ([id number]) [address], [address] [place] [address] Platelet mean volume (Bld) [Entitic vol] 9.1 fL Normal 7-12 [facility] Comment on above: Performed By: #### C BCA, BMP, PINR, 69062-1 #### [facility] ([id number]) [address], [facility] [address] [place] [address] Platelets (Bld) [#/Vol] 212 10*3/uL Normal 150-450 [facility] Comment on above: Performed By: #### C BCA, BMP, PINR, 28101-2 #### [facility] ([id number]) [address], [address] [place] [address] RBC COUNT 4.25 X10E12/L Normal 4.10-5.70 [facility] Comment on above: Performed By: #### C BCA, BMP, PINR, 14148-9 #### [facility] ([id number]) [address], [address] [place] [address] WBC (Bld) [#/Vol] 7.1 10*3/uL Normal 4.0-11.0 [facility] Comment on above: Performed By: #### C BCA, BMP, PINR, 56503-0 #### [facility] ([id number]) [address], [address] [place] [address] CBC auto differentialon 09-17 Basophils (Bld) [#/Vol] 0.0 10*3/uL [facility] Basophils/100 WBC (Bld) 0.7 % [facility] Eosinophils (Bld) [#/Vol] 0.1 10*3/uL [facility] Eosinophils/100 WBC (Bld) 1.1 % [facility] Erythrocyte distribution width (RBC) [Ratio] 14.0 % 11.5 - 15.0 % [facility] Hematocrit (Bld) [Volume fraction] 39.4 % 39 - 49 % [facility] Hemoglobin (Bld) [Mass/Vol] 13.3 g/dL 13.0 - 17.0 g/dL [facility] Lymphocytes (Bld) [#/Vol] 2.2 10*3/uL [facility] Lymphocytes/100 WBC (Bld) 31.4 % [facility] MCH (RBC) [Entitic mass] 31.2 pg 27 - 34 pg [facility] MCHC (RBC) [Mass/Vol] 33.7 g/dL 32 - 3 6 g/dL [facility] MCV (RBC) [Entitic vol] 93 fL 80 - 100 fL [facility] Monocytes (Bld) [#/Vol] 0.5 10*3/uL [facility] Monocytes/100 WBC (Bld) 7.2 % [facility] Neutrophils (Bld) [#/Vol] 4.2 10*3/uL [facility] Neutrophils/100 WBC (Bld) 59.6 % [facility] Platelet mean volume (Bld) [Entitic vol] 9.1 fL 7 - 12 fL [facility] Platelets (Bld) [#/Vol] 212 10*3/uL [facility] RBC (Bld) [#/Vol] 4.25 10*6/uL [facility] WBC corrected for nucl RBC Auto (Bld) [#/Vol] 7.[address] [facility] ECG 12 leadon 10-08-2023 TRACEMASTERVUE [facility] No Panel Informationon 10-08 [facility] PROTIME AND INRon 10-08-2023 INR Coag (PPP) [Relative time] 1.0 {INR} Normal 0.8-1.1 [facility] Comment on above: Performed By: #### C FAHEEM, CRUZ, PINR, 95039-9 #### [facility] ([id number]) [address], [address] [place] [address] PT Coag (PPP) [Time] 11.1 s Normal 9.8-13.2 [facility] Comment on above: Performed By: #### C BCA, BMP, PINR, 57182-2 #### [facility] ([id number]) [address], [address] [place] [address] Protime & INRon 10-08-2023 INR Coag (PPP) [Relative time] 1.0 {INR} [facility] PT Coag (PPP) [Time] 11.1 s [facility] Type and screenon 10-08-2023 ABO O [facility] Rh Nom (Bld) Positive [facility] URINALYSISon 10-08-2023 Bilirubin Ql (U) Negative Normal NEG [facility] BLOOD/HGB Negative Normal NEG [facility] Color (U) YELLOW Normal YELLOW [facility] Glucose Ql (U) Negative Normal NEG [facility] Ketones Ql (U) Negative Normal NEG [facility] Leukocyte esterase Test strip Ql (U) Negative Normal NEG [facility] Nitrite Ql (U) Negative Normal NEG [facility] pH (U) 7.5 [pH] Normal 5.0-8.5 [facility] Protein Ql (U) Negative Normal NEG [facility] Specific gravity (U) [Rel density] 1.010 Normal 1.003-1.03 5 [facility] TURBIDITY CLEAR Normal CLEAR [facility] Urobilinogen (U) [Mass/Vol] mg/dL Normal <1.1 [facility] URINE CULTUREon 10-08-2023 Bacteria identified Cx Nom (U) CULTURE RESULTS NO GROWTH AT <1000 CFU/mL Normal [facility] Comment on above: Performed By: #### 6 30-4 #### [facility] ([id number]) [address] [place] [address], [address] [place] [address] Urinalysison 10-08-2023 Bilirubin Ql (U) Negative Negative^N egative [facility] Color (U) YELLOW YELLOW^YEL LOW [facility] Glucose (U) [Mass/Vol] Negative Negative^N egative mg/dL [facility] Hemoglobin Auto test strip Ql (U) Negative Negative^N egative [facility] Ketones (U) [Mass/Vol] Negative Negative^N egative mg/dL [facility] Leukocyte esterase Auto test strip Ql (U) Negative Negative^N egative [facility] Nitrite Auto test strip Ql (U) Negative Negative^N egative [facility] pH (U) 7.5 [pH] 5.0 - 8.5 [facility] Protein (U) [Mass/Vol] Negative Negative^N egative mg/dL [facility] Specific gravity Refractometry automated (U) [Rel density] 1.010 1.003 - 1.035 [facility] Turbidity Ql (U) CLEAR CLEAR^GERONIMO R [facility] Urobilinogen Qn (U) NINF [facility] aPTT Coag (PPP) [Time]on aPTT Coag (Bld) [Time] 40 s High 26-37 [facility] Comment on above: Performed By: #### C BCA, BMP, PINR, 96735-0 #### [facility] ([id number]) [address], [address] [place] [address] Interpretation and review of laboratory results Abnormal [facility] Physician Referralon 024 Physician Referral [phone] 2051 [id number] F Normal [facility] XR Chest PA and Lateralon Brenden [...] Brenden Zapien MD on 09/23/2023 4:11 PM [facility] Radiology Study observation (narrative) [facility] XR Chest PA and LateralOrder ed By: Brenden Zapien on 09-23-2023 [facility] Work Phone: XR SPINE LUMB BENDING ONLY 2 -3 [...] Rodriguez MD on 09/03/2023 5:22 AM Normal [facility] XR lumbar spine AP/LAT/FLX/E XTon 05-24-2023 XR lumbar spine AP/LAT/FLX/EXT [facility] [place] [address] [place] [address] XRay Report Signed Patient: Celestino Ziegler MR#: [id number] : 1970 Acct:[id number] Age/Sex: 52 / M ADM Date: 05/24/23 Loc: XD Room: Type: [facility] Attending Dr: Trino Cadet MD Copies [...] Mesfin Snell M.D.05/24/2023 8:03 PM Dictation Location: [place] [address] Transcribed By: [facility] 05/24/232002 Dictated By: Mesfin Snell II, MD 05/24/232001 Signed By: 05/24/232002 Normal [facility] INSULINon 09-04-2022 Insulin 6.5 uIU/mL Normal 2.6-24.9 [facility] Comment on above: Performed By: #### I NSULIN #### [facility] [address] [place] [address] Dr. Randall Ayoub CBC AUTO DIFFon 09-03-2022 BASO # 0.0 103/ul Normal 0.0-0.1 [facility] Comment on above: Performed By: #### C BC #### [facility] [address] [address] [address] Randall Ayoub Basophils/100 WBC (Bld) 0.6 % Normal 0.2-2.0 [facility] Comment on above: Performed By: #### C BC #### [facility] [address] [address] [address] Randall Ayoub EO # 0.2 103/ul Normal 0.0-0.7 [facility] Comment on above: Performed By: #### C BC #### [facility] [address] [place] [address] Dr. Randall Ayoub Eosinophils/100 WBC (Bld) 3.2 % Normal 0.9-7.0 [facility] Comment on above: Performed By: #### C BC #### [facility] [address] [place] [address] Dr. Randall Ayoub Erythrocyte distribution width (RBC) [Ratio] 13.8 % Normal 11.0-15.0 [facility] Comment on above: Performed By: #### C BC #### [facility] [address] [place] [address] Dr. Randall Ayoub Hematocrit (Bld) [Volume fraction] 39.5 % Critically low 42.0-54.0 [facility] Comment on above: Performed By: #### C BC #### [facility] [address] [place] [address] Dr. Randall Ayoub Hemoglobin (Bld) [Mass/Vol] 13.0 g/dL Critically low 14.0-18.0 [facility] Comment on above: Performed By: #### C BC #### [facility] [address] [place] [address] Dr. Randall Ayoub IG # 0.00 10e3/ul Normal 0.00-0.03 [facility] Comment on above: Performed By: #### C BC #### [facility] [address] [place] [address] Dr. Randall Ayoub IG % 0.0 % Normal 0.0-0.5 [facility] Comment on above: Performed By: #### C BC #### [facility] [address] [place] [address] Dr. Randall Ayoub LYMPH # 2.3 103/ul Normal 1.2-3.8 [facility] Comment on above: Performed By: #### C BC #### [facility] [address] [place] [address] Dr. Randall Ayoub Lymphocytes/100 WBC (Bld) 35.2 % Normal 20.5-60.0 [facility] Comment on above: Performed By: #### C BC #### [facility] [address] [place] [address] Dr. Randall Ayoub MANUAL DIFF REQ NO Normal [facility] Comment on above: Performed By: #### C BC #### [facility] [address] [place] [address] Dr. Randall Ayoub MCH (RBC) [Entitic mass] 30.8 pg Normal 25.9-34.0 [facility] Comment on above: Performed By: #### C BC #### [facility] [address] [place] [address] Dr. Randall Ayoub MCHC (RBC) [Mass/Vol] 32.9 g/dL Normal 29.9-35.2 [facility] Comment on above: Performed By: #### C BC #### [facility] [address] [place] [address] Dr. Randall Ayoub MCV (RBC) [Entitic vol] 93.6 fL Normal 80.0-94.0 [facility] Comment on above: Performed By: #### C BC #### [facility] [address] [place] [address] Dr. Randall Ayoub MONO # 0.6 103/ul Normal 0.3-0.8 [facility] Comment on above: Performed By: #### C BC #### [facility] [address] [place] [address] Dr. Randall Ayoub Monocytes/100 WBC (Bld) 8.9 % Normal 1.7-12.0 [facility] Comment on above: Performed By: #### C BC #### [facility] [address] [place] [address] Dr. Randall Ayoub NEUT # 3.4 103/ul Normal 1.4-6.5 [facility] Comment on above: Performed By: #### C BC #### [facility] [address] [place] [address] Dr. Randall Ayoub Neutrophils/100 WBC (Bld) 52.1 % Normal 43.0-75.0 [facility] Comment on above: Performed By: #### C BC #### [facility] [address] [place] [address] Dr. Randall Ayobu Platelet mean volume (Bld) [Entitic vol] 10.7 fL Normal 9.5-13.5 [facility] Comment on above: Performed By: #### C BC #### [facility] [address] [place] [address] Dr. Randall Ayoub PLT 186 103/ul Normal 150-450 [facility] Comment on above: Performed By: #### C BC #### [facility] [address] [place] [address] Dr. Randall Ayoub RBC 4.22 106/ul Critically low 4.70-6.10 [facility] Comment on above: Performed By: #### C BC #### [facility] [address] [place] [address] Dr. Randall Ayoub WBC 6.6 103/ul Normal 4.0-11.0 [facility] Comment on above: Performed By: #### C BC #### [facility] [address] [place] [address] Dr. Randall Ayoub GLYCOHEMOGLOBIN A1Con 2022 ADA RECOMMENDATION SEE BELOW Normal [facility] Comment on above: Result Comment: ADA RECOMMENDED LIMIT 4.0 - 6.0 ADA THERAPEUTIC TARGET < 7.0 ACTION SUGGESTED > 7.0 Performed By: #### A 1C #### [facility] [address] [address] [address] Randall Ayoub Glucose [Mass/Vol] 114 mg/dL Normal [facility] Comment on above: Performed By: #### A 1C #### [facility] [address] [address] [address] Randall Ayoub HbA1c (Bld) [Mass fraction] 5.6 % Normal 4.5-6.2 [facility] Comment on above: Performed By: #### A 1C #### [facility] [address] [address] [address] Randall Ayoub LIPID PROFILEon 09-03-2022 CHOL-HDL RATIO NORM SEE BELOW Normal [facility] Comment on above: Result Comment: 3.3 - 4.4 LOW RISK 4.4 - 7.1 AVERAGE RISK 7.1 - 11.0 MODERATE RISK >11.0 HIGH RISK Performed By: #### I NSULIN #### [facility] [address] [place] [address] Dr. Randall Ayoub Cholesterol [Mass/Vol] 181 mg/dL Normal <=200 [facility] Comment on above: Performed By: #### I NSULIN #### [facility] [address] [address] [address] Randall Ayoub Cholesterol in HDL [Mass/Vol] 47 mg/dL Normal 40-60 [facility] Comment on above: Performed By: #### I NSULIN #### [facility] [address] [address] [address] Randall Ayoub Cholesterol in LDL [Mass/Vol] 113.4 mg/dL Normal [facility] Comment on above: Performed By: #### I NSULIN #### [facility] [address] [address] [address] Randall Ayoub Cholesterol.total/Cho lesterol in HDL [Mass ratio] 3.9 {ratio} Normal [facility] Comment on above: Performed By: #### I NSULIN #### [facility] [address] [address] [address] Randall Ayoub HDL NORMAL > or = 60 mg/dl - LO W CARDIOVASCULAR RISK <40 mg/dl - HIGH CARDIOVASCULAR RISK Normal [facility] Comment on above: Performed By: #### I NSULIN #### [facility] [address] [address] [address] Randall Ayoub LDL CALC NORMAL SEE BELOW Normal [facility] Comment on above: Result Comment: <100 mg/dl OPTIMAL 100 - 129 mg/dl NEAR OR ABOVE OPTIMAL 130 - 159 mg/dl BORDERLINE HIGH 160 - 189 mg/dl HIGH >190 mg/dl VERY HIGH Performed By: #### I NSULIN #### [facility] [address] [address] [address] Randall Ayoub Triglyceride [Mass/Vol] 103 mg/dL Normal <=150 [facility] Comment on above: Performed By: #### I NSULIN #### [facility] [address] [place] [address] Dr. Randall Ayoub VLDL CALC 20.6 mg/dL Normal [facility] Comment on above: Performed By: #### I NSULIN #### [facility] [address] [place] [address] Dr. Randall Ayoub PROF 14(COMP METB)on 023 Albumin [Mass/Vol] 3.8 g/dL Normal 3.4-5.0 [facility] Comment on above: Performed By: #### I NSULIN #### [facility] [address] [place] [address] Dr. Randall Ayoub Albumin/Globulin [Mass ratio] 1.4 {ratio} Normal [facility] Comment on above: Performed By: #### I NSULIN #### [facility] [address] [place] [address] Dr. Randall Ayoub ALP [Catalytic activity/Vol] 72 U/L Normal 46-116 [facility] Comment on above: Performed By: #### I NSULIN #### [facility] [address] [place] [address] Dr. Randall Ayoub ALT [Catalytic activity/Vol] 22 U/L Normal 16-63 [facility] Comment on above: Performed By: #### I NSULIN #### [facility] [address] [place] [address] Dr. Randall Ayoub Anion gap [Moles/Vol] 12.9 mmol/L Normal Th [facility] Comment on above: Performed By: #### I NSULIN #### [facility] [address] [place] [address] Dr. Randall Ayoub AST [Catalytic activity/Vol] 17 U/L Normal 15-37 [facility] Comment on above: Performed By: #### I NSULIN #### [facility] [address] [place] [address] Dr. Randall Ayoub Bilirubin [Mass/Vol] 0.5 mg/dL Normal 0.2-1.0 [facility] Comment on above: Performed By: #### I NSULIN #### [facility] [address] [place] [address] Dr. Randall Ayoub Calcium [Mass/Vol] 8.7 mg/dL Normal 8.5-10.1 [facility] Comment on above: Performed By: #### I NSULIN #### [facility] [address] [place] [address] Dr. Randall Ayoub Chloride [Moles/Vol] 108 mmol/L Critically high 98-107 [facility] Comment on above: Performed By: #### I NSULIN #### [facility] [address] [place] [address] Dr. Randall Ayoub CO2 [Moles/Vol] 27.5 mmol/L Normal 21.0-32.0 [facility] Comment on above: Performed By: #### I NSULIN #### [facility] [address] [place] [address] Dr. Randall Ayoub Creatinine [Mass/Vol] 0.92 mg/dL Normal 0.70-1.30 [facility] Comment on above: Performed By: #### I NSULIN #### [facility] [address] [place] [address] Dr. Randall Ayoub EGFR-AF AUSTRALIAN >60 Normal >=60 [facility] Comment on above: Performed By: #### I NSULIN #### [facility] [address] [place] [address] Dr. Randall Ayoub EGFR-NON AF AUSTRALIAN >60 Normal >=60 [facility] Comment on above: Performed By: #### I NSULIN #### [facility] [address] [address] [address] Randall Ayoub Globulin (S) [Mass/Vol] 2.7 g/dL Normal [facility] Comment on above: Performed By: #### I NSULIN #### [facility] [address] [address] [address] Randall Ayoub Glucose [Mass/Vol] 96 mg/dL Normal 74-106 [facility] Comment on above: Performed By: #### I NSULIN #### [facility] [address] [address] [address] Randall Ayoub Potassium [Moles/Vol] 4.4 mmol/L Normal 3.5-5.1 [facility] Comment on above: Performed By: #### I NSULIN #### [facility] [address] [address] [address] Randall Ayoub Protein [Mass/Vol] 6.5 g/dL Normal 6.4-8.2 [facility] Comment on above: Performed By: #### I NSULIN #### [facility] [address] [address] [address] Randall Ayoub Sodium [Moles/Vol] 144 mmol/L Normal 136-145 [facility] Comment on above: Performed By: #### I NSULIN #### [facility] [address] [address] [address] Randall Ayoub Urea nitrogen [Mass/Vol] 23.0 mg/dL Critically high 7.0-18.0 [facility] Comment on above: Performed By: #### I NSULIN #### [facility] [address] [address] [address] Randall Ayoub Urea nitrogen/Creatinine [Mass ratio] 25.0 mg/mg Normal [facility] Comment on above: Performed By: #### I NSULIN #### [facility] [address] [address] [address] Randall Ayoub URIC ACID SERUMon 09-03-2022 Urate [Mass/Vol] 4.2 mg/dL Normal 3.5-7.2 [facility] Comment on above: Performed By: #### I NSULIN #### [facility] [address] [place] [address] Dr. Randall Ayoub CBC AUTO DIFFon 02-03-2022 BASO # 0.0 103/ul Normal 0.0-0.1 [facility] Comment on above: Performed By: #### I NSULIN #### [facility] [address] [place] [address] Dr. Randall Ayoub Basophils/100 WBC (Bld) 0.3 % Normal 0.2-2.0 [facility] Comment on above: Performed By: #### I NSULIN #### [facility] [address] [place] [address] Dr. Randall Ayoub EO # 0.0 103/ul Normal 0.0-0.7 [facility] Comment on above: Performed By: #### I NSULIN #### [facility] [address] [place] [address] Dr. Randall Ayoub Eosinophils/100 WBC (Bld) 0.5 % Critically low 0.9-7.0 [facility] Comment on above: Performed By: #### I NSULIN #### [facility] [address] [place] [address] Dr. Randall Ayoub Erythrocyte distribution width (RBC) [Ratio] 13.4 % Normal 11.0-15.0 [facility] Comment on above: Performed By: #### I NSULIN #### [facility] [address] [place] [address] Dr. Randall Ayoub Hematocrit (Bld) [Volume fraction] 41.7 % Critically low 42.0-54.0 [facility] Comment on above: Performed By: #### I NSULIN #### [facility] [address] [place] [address] Dr. Randall Ayoub Hemoglobin (Bld) [Mass/Vol] 14.0 g/dL Normal 14.0-18.0 [facility] Comment on above: Performed By: #### I NSULIN #### [facility] [address] [place], [place] [id number] Dr. Randall Ayoub IG # 0.01 10e3/ul Normal 0.00-0.03 [facility] Comment on above: Performed By: #### I NSULIN #### [facility] [address] [place] [address] Dr. Randall Ayoub IG % 0.3 % Normal 0.0-0.5 [facility] Comment on above: Performed By: #### I NSULIN #### [facility] [address] [place] [address] Dr. Randall Ayoub LYMPH # 1.7 103/ul Normal 1.2-3.8 [facility] Comment on above: Performed By: #### I NSULIN #### [facility] [address] [place] [address] Dr. Randall Ayoub Lymphocytes/100 WBC (Bld) 43.7 % Normal 20.5-60.0 [facility] Comment on above: Performed By: #### I NSULIN #### [facility] [address] [place] [address] Dr. Randall Ayoub MANUAL DIFF REQ NO Normal [facility] Comment on above: Performed By: #### I NSULIN #### [facility] [address] [place] [address] Dr. Randall Ayoub MCH (RBC) [Entitic mass] 31.7 pg Normal 25.9-34.0 [facility] Comment on above: Performed By: #### I NSULIN #### [facility] [address] [place] [address] Dr. Randall Ayoub MCHC (RBC) [Mass/Vol] 33.6 g/dL Normal 29.9-35.2 [facility] Comment on above: Performed By: #### I NSULIN #### [facility] [address] [place] [address] Dr. Randall Ayoub MCV (RBC) [Entitic vol] 94.3 fL Critically high 80.0-94.0 [facility] Comment on above: Performed By: #### I NSULIN #### [facility] [address] [place] [address] Dr. Randlal Ayoub MONO # 0.6 103/ul Normal 0.3-0.8 [facility] Comment on above: Performed By: #### I NSULIN #### [facility] [address] [place] [address] Dr. Randall Ayoub Monocytes/100 WBC (Bld) 14.7 % Critically high 1.7-12.0 [facility] Comment on above: Performed By: #### I NSULIN #### [facility] [address] [place] [address] Dr. Randall Ayoub NEUT # 1.6 103/ul Normal 1.4-6.5 [facility] Comment on above: Performed By: #### I NSULIN #### [facility] [address] [place] [address] Dr. Randall Ayoub Neutrophils/100 WBC (Bld) 40.5 % Critically low 43.0-75.0 [facility] Comment on above: Performed By: #### I NSULIN #### [facility] [address] [place] [address] Dr. Randall Ayoub Platelet mean volume (Bld) [Entitic vol] 10.1 fL Normal 9.5-13.5 [facility] Comment on above: Performed By: #### I NSULIN #### [facility] [address] [place] [address] Dr. Randall Ayoub PLT 171 103/ul Normal 150-450 [facility] Comment on above: Performed By: #### I NSULIN #### [facility] [address] [place] [address] Dr. Randall Ayoub RBC 4.42 106/ul Critically low 4.70-6.10 [facility] Comment on above: Performed By: #### I NSULIN #### [facility] [address] [place] [address] Dr. Randall Ayoub WBC 3.9 103/ul Critically low 4.0-11.0 [facility] Comment on above: Performed By: #### I NSULIN #### [facility] [address] [place] [address] Dr. Randall Ayoub Covid-19 PCR (CVDTBH)on 01-15 SARS-CoV-2 (COVID-19) RNA SERGIO+probe Ql (Unsp spec) Not detected Normal NOT DETECTED [facility] Comment on above: Result Comment: This test is not yet approved or cleared by the [place] FDA. When there are no FDA-approved or cleared tests available, and other criteria are met, FDA can make tests available under an emergency access mechanism called an Emergency Use Authorization (EUA). The EUA for this test is supported by the [place] of Health and Human Service's (HHS's) declaration [...] SARS-CoV-2. Performed By: #### C VDTBH #### [facility] [address] [place] [address] Dr. Randall Ayoub ER URINE PROFILEon Bilirubin Ql (U) MODERATE Abnormal NEGATIVE [facility] Comment on above: Performed By: #### E RUR #### [facility] [address] [place] [address] Dr. Randall Ayoub Clarity (U) CLEAR Normal CLEAR [facility] Comment on above: Performed By: #### E RUR #### [facility] [address] [place] [address] Dr. Randall Ayoub Color (U) DK. YELLOW Normal YELLOW [facility] Comment on above: Performed By: #### E RUR #### [facility] [address] [place] [address] Dr. Randall Ayoub ERUAHD A micrscopic examina tion will be performed if indicated. Normal [facility] Comment on above: Performed By: #### E RUR #### [facility] [address] [place] [address] Dr. Randall Ayoub Glucose Ql (U) Negative Normal NEGATIVE [facility] Comment on above: Performed By: #### E RUR #### [facility] [address] [place] [address] Dr. Randall Ayoub Hemoglobin Ql (U) Negative Normal NEGATIVE [facility] Comment on above: Performed By: #### E RUR #### [facility] [address] [place] [address] Dr. Randall Ayoub Ketones Ql (U) >=80 Abnormal NEGATIVE [facility] Comment on above: Performed By: #### E RUR #### [facility] [address] [place] [address] Dr. Randall Ayoub LEUKOCYTES Negative Normal NEGATIVE [facility] Comment on above: Performed By: #### E RUR #### [facility] [address] [place] [address] Dr. Randall Ayoub Nitrite Ql (U) Negative Normal NEGATIVE [facility] Comment on above: Performed By: #### E RUR #### [facility] [address] [place] [address] Dr. Randall Ayoub pH (U) 6.5 [pH] Normal 5-9 [facility] Comment on above: Performed By: #### E RUR #### [facility] [address] [place] [address] Dr. Randall Ayoub Protein (U) [Mass/Vol] 30 mg/dL Abnormal NEGATIVE/ TRACE [facility] Comment on above: Performed By: #### E RUR #### [facility] [address] [place] [address] Dr. Randall Ayoub SPEC GRAVITY 1.025 Normal 1.005-<=1. 025 [facility] Comment on above: Performed By: #### E RUR #### [facility] [address] [place] [address] Dr. Randall Ayoub UR MICRO IND NOT INDICATED Normal [facility] Comment on above: Performed By: #### E RUR #### [facility] [address] [place] [address] Dr. Randall Ayoub Urobilinogen Qn (U) 1.0 {Kavita'U}/dL Normal 0.2 - 1. 0 [facility] Comment on above: Performed By: #### E RUR #### [facility] [address] [place] [address] Dr. Randall Ayoub INFLUENZA A AND B AGon 02-03 INFLUANEGH SEE BELOW Normal [facility] Comment on above: Result Comment: Nega tive for Flu A protein angiten. Infection due to Flu A cannot be ruled out. Flu A angiten in the sample may be below the detection limit of the test. Performed By: #### I NSULIN #### [facility] [address] [place] [address] Dr. Randall Ayoub INFLUBNEGH SEE BELOW Normal [facility] Comment on above: Result Comment: Nega tive for Flu B protein antigen. Infection due to Flu B cannot be ruled out. Flu B antigen in the sample may be below the detection limit of the test. Performed By: #### I NSULIN #### [facility] [address] [place] [address] Dr. Randall Ayoub INFLUENZA A AG Negative Normal NEGATIVE SEE COMMENT [facility] Comment on above: Performed By: #### I NSULIN #### [facility] [address] [place] [address] Dr. Randall Ayoub INFLUENZA B AG Negative Normal NEGATIVE SEE COMMENT [facility] Comment on above: Performed By: #### I NSULIN #### [facility] [address] [place] [address] Dr. Randall Ayoub INTERNAL CONTROLS Within Normal Limits Normal Wi thin Normal Limits [facility] Comment on above: Performed By: #### I NSULIN #### [facility] [address] [place] [address] Dr. Randall Ayoub LACTATE/LACTIC ACIDon 2021 Lactate [Moles/Vol] 1.2 mmol/L Normal 0.4-1.9 [facility] Comment on above: Performed By: #### L ACT #### [facility] [address] [place] [address] Dr. Randall Ayoub PROF 14(COMP METB)on 022 Albumin [Mass/Vol] 4.0 g/dL Normal 3.4-5.0 [facility] Comment on above: Performed By: #### C MP #### [facility] [address] [place] [address] Dr. Randall Ayoub Albumin/Globulin [Mass ratio] 1.3 {ratio} Normal [facility] Comment on above: Performed By: #### C MP #### [facility] [address] [place] [address] Dr. Randall Ayoub ALP [Catalytic activity/Vol] 71 U/L Normal 46-116 [facility] Comment on above: Performed By: #### C MP #### [facility] [address] [place] [address] Dr. Randall Ayoub ALT [Catalytic activity/Vol] 26 U/L Normal 16-63 [facility] Comment on above: Performed By: #### C MP #### [facility] [address] [place] [address] Dr. Randall Ayoub Anion gap [Moles/Vol] 15.4 mmol/L Normal [facility] Comment on above: Performed By: #### C MP #### [facility] [address] [place] [address] Dr. Randall Ayoub AST [Catalytic activity/Vol] 15 U/L Normal 15-37 [facility] Comment on above: Performed By: #### C MP #### [facility] [address] [place] [address] Dr. Randall Ayoub Bilirubin [Mass/Vol] 0.6 mg/dL Normal 0.2-1.0 [facility] Comment on above: Performed By: #### C MP #### [facility] [address] [place] [address] Dr. Randall Ayoub Calcium [Mass/Vol] 8.9 mg/dL Normal 8.5-10.1 [facility] Comment on above: Performed By: #### C MP #### [facility] [address] [place] [address] Dr. Randall Ayoub Chloride [Moles/Vol] 108 mmol/L Critically high 98-107 [facility] Comment on above: Performed By: #### C MP #### [facility] [address] [address] [address] Randall Ayoub CO2 [Moles/Vol] 23.1 mmol/L Normal 21.0-32.0 [facility] Comment on above: Performed By: #### C MP #### [facility] [address] [address] [address] Randall Ayoub Creatinine [Mass/Vol] 0.96 mg/dL Normal 0.70-1.30 [facility] Comment on above: Performed By: #### C MP #### [facility] [address] [place] [address] Dr. Randall Ayoub EGFR-AF AUSTRALIAN >60 Normal >=60 [facility] Comment on above: Performed By: #### C MP #### [facility] [address] [place] [address] Dr. Randall Ayoub EGFR-NON AF AUSTRALIAN >60 Normal >=60 [facility] Comment on above: Performed By: #### C MP #### [facility] [address] [address] [address] Randall Ayoub Globulin (S) [Mass/Vol] 3.0 g/dL Normal [facility] Comment on above: Performed By: #### C MP #### [facility] [address] [place] [address] Dr. Randall Ayoub Glucose [Mass/Vol] 99 mg/dL Normal 74-106 [facility] Comment on above: Performed By: #### C MP #### [facility] [address] [place] [address] Dr. Randall Ayoub Potassium [Moles/Vol] 3.5 mmol/L Normal 3.5-5.1 [facility] Comment on above: Performed By: #### C MP #### [facility] [address] [place] [address] Dr. Randall Ayoub Protein [Mass/Vol] 7.0 g/dL Normal 6.4-8.2 [facility] Comment on above: Performed By: #### C MP #### [facility] [address] [address] [address] Randall Ayoub Sodium [Moles/Vol] 143 mmol/L Normal 136-145 [facility] Comment on above: Performed By: #### C MP #### [facility] [address] [place] [address] Dr. Randall Ayoub Urea nitrogen [Mass/Vol] 24.0 mg/dL Critically high 7.0-18.0 [facility] Comment on above: Performed By: #### C MP #### [facility] [address] [place] [address] Dr. Randall Ayoub Urea nitrogen/Creatinine [Mass ratio] 25.0 mg/mg Normal [facility] Comment on above: Performed By: #### C MP #### [facility] [address] [place] [address] Dr. Randall Ayoub SYMPTOMATIC COVID-19 ANTIGEN on 02-03-2022 EUA Statement SEE BELOW Normal [facility] Comment on above: Result Comment: This [...] sooner. Performed By: #### C VDAGS #### [facility] [address] [place] [address] Dr. Randall Ayoub SARS-CoV-2 (COVID-19) RNA SERGIO+probe Ql (Unsp spec) Negative Normal NEGATIVE [facility] Comment on above: Performed By: #### C VDAGS #### [facility] [id number] Randall Ayoub XR CHEST 2 Von [...] TRISTA [place] Date: 2022-02-03 17:08 Normal [facility] Covid-19 PCR ([facility])on 12-14 SARS-CoV-2 (COVID-19) RNA SERGIO+probe Ql (Unsp spec) Not detected Normal NOT DETECTED [facility] Comment on above: Result Comment: This test is not yet approved or cleared by the [place] FDA. When there are no FDA-approved or cleared tests available, and other criteria are met, FDA can make tests available under an emergency access mechanism called an Emergency Use Authorization (EUA). The EUA for this test is supported by the [place] of Health and Human Service's (HHS's) declaration [...] SARS-CoV-2. Performed By: #### C VDTB #### [facility] [id number] Randall Ayoub Vital Signs Date Time Vital Sign Value Performing Clinician Facility 08-29-2024 13:17-0500 Body height 172.7 cm Xu Nienberg PA Work Phone: [facility] 08-29-2024 13:17-0500 Body mass index (BMI) [Ratio] 30.26 kg/m2 Xu Nienberg PA Work Phone: [facility] 08-29-2024 13:17-0500 Body weight 90.27 kg Xu Nienberg PA Work Phone: [facility] 08-29-2024 13:17-0500 Diastolic blood pressure 88 mm[Hg] Xu Nienberg PA Work Phone: [facility] 08-29-2024 13:17-0500 Heart rate 78 /min Xu Nienberg PA Work Phone: [facility] 08-29-2024 13:17-0500 SaO2% (BldA) [Mass fraction] 99 % Xu Nienberg PA Work Phone: [facility] 08-29-2024 13:17-0500 Systolic blood pressure 134 mm[Hg] Xu Nienberg PA Work Phone: [facility] 06-27-2024 12:56-0500 Body height 172.7 cm Xu Nienberg PA Work Phone: [facility] 06-27-2024 12:56-0500 Body mass index (BMI) [Ratio] 29.77 kg/m2 Xu Nienberg PA Work Phone: [facility] 06-27-2024 12:56-0500 Body weight 88.81 kg Xu Nienberg PA Work Phone: [facility] 06-27-2024 12:56-0500 Diastolic blood pressure 89 mm[Hg] Xu Nienberg PA Work Phone: [facility] 06-27-2024 12:56-0500 Heart rate 85 /min Xu Nienberg PA Work Phone: [facility] 06-27-2024 12:56-0500 Respiratory rate 18 /min Xu Nienberg PA Work Phone: [facility] 06-27-2024 12:56-0500 SaO2% (BldA) [Mass fraction] 98 % Xu Persaudenberg PA Work Phone: [facility] 06-27-2024 12:56-0500 Systolic blood pressure 123 mm[Hg] Xu Persaudenberg PA Work Phone: [facility] 04-13-2024 14:22-0400 Body mass index (BMI) [Ratio] 29.35 kg/m2 Xu Persaudenberg PA Work Phone: [facility] 04-13-2024 14:22-0400 Body weight 87.54 kg Xu Persaudenberg PA Work Phone: [facility] 04-13-2024 14:22-0400 Diastolic blood pressure 69 mm[Hg] Xu Persaudenberg PA Work Phone: [facility] 04-13-2024 14:22-0400 Heart rate 91 /min Xu Persaudenberg PA Work Phone: [facility] 04-13-2024 14:22-0400 Respiratory rate 14 /min Xu Persaudenberg PA Work Phone: [facility] 04-13-2024 14:22-0400 SaO2% (BldA) [Mass fraction] 100 % Xu Persaudenberg PA Work Phone: [facility] 04-13-2024 14:22-0400 Systolic blood pressure 109 mm[Hg] Xu Persaudenberg PA Work Phone: [facility] 02-22-2024 14:58-0400 Body mass index (BMI) [Ratio] 28.74 kg/m2 Xu Nienberg PA Work Phone: [facility] 02-22-2024 14:58-0400 Body weight 85.73 kg Xu Nienberg PA Work Phone: [facility] 02-22-2024 14:58-0400 Diastolic blood pressure 83 mm[Hg] Xu Pedro PA Work Phone: [facility] 02-22-2024 14:58-0400 Heart rate 109 /min Xu Pedro PA Work Phone: [facility] 02-22-2024 14:58-0400 Respiratory rate 16 /min Xu Corienberg PA Work Phone: [facility] 02-22-2024 14:58-0400 SaO2% (BldA) [Mass fraction] 97 % Xu Pedro PA Work Phone: [facility] 02-22-2024 14:58-0400 Systolic blood pressure 109 mm[Hg] Xu Pedro PA Work Phone: [facility] 02-10-2024 11:06-0400 Body height 172.7 cm Charlesdennys Tim [employer] CLINICIAN Work Phone: [facility] 02-10-2024 11:06-0400 Body mass index (BMI) [Ratio] 30.41 kg/m2 Charles Tim [employer]CARE CLINICIAN Work Phone: [facility] 02-10-2024 11:06-0400 Body weight 90.72 kg Charles Tim [employer]IVE [employer] CLINICIAN Work Phone: [facility] 01-20-2024 09:59-0400 Body height 172.7 cm Xu Pedro PA Work Phone: [facility] 01-20-2024 09:59-0400 Body mass index (BMI) [Ratio] 30.41 kg/m2 Xu Nienberg PA Work Phone: [facility] 01-20-2024 09:59-0400 Body weight 90.72 kg Xu Nienberg PA Work Phone: [facility] 01-20-2024 09:59-0400 Diastolic blood pressure 80 mm[Hg] Xu Persaudenberg PA Work Phone: [facility] 01-20-2024 09:59-0400 Heart rate 85 /min Xu PORRAS Work Phone: [facility] 01-20-2024 09:59-0400 Respiratory rate 18 /min Xu Troy PA Work Phone: [facility] 01-20-2024 09:59-0400 SaO2% (BldA) [Mass fraction] 97 % Xu Troy PA Work Phone: [facility] 01-20-2024 09:59-0400 Systolic blood pressure 132 mm[Hg] Xu PORRAS Work Phone: [facility] 12-02-2023 14:55-0400 Body height 170.2 cm Charles Tim SOLUTIONS EXECUTIVE SECURITY-CARE CLINICIAN Work Phone: [facility] 12-02-2023 14:55-0400 Body mass index (BMI) [Ratio] 31.32 kg/m2 Charles Tim SOLUTIONS EXECUTIVE SECURITY-CARE CLINICIAN Work Phone: [facility] 12-02-2023 14:55-0400 Body weight 90.72 kg Charlesnaresh Tim SOLUTIONS EXECUTIVE SECURITY-CARE CLINICIAN Work Phone: [facility] 12-02-2023 14:55-0400 Diastolic blood pressure 81 mm[Hg] Charles Tim SOLUTIONS EXECUTIVE SECURITY-CARE CLINICIAN Work Phone: [facility] 12-02-2023 14:55-0400 Heart rate 100 /min Charles Tim SOLUTIONS EXECUTIVE SECURITY-CARE CLINICIAN Work Phone: [facility] 12-02-2023 14:55-0400 Systolic blood pressure 125 mm[Hg] Charles Tim SOLUTIONS EXECUTIVE SECURITY-CARE CLINICIAN Work Phone: [facility] 11-16-2023 13:17-0400 Blood Pressure Location Michel ROBBINS [facility] [place] 11-16-2023 13:17-0400 Diastolic blood pressure 78 mm[Hg] Michel ROBBINS [facility] [place] 11-16-2023 13:17-0400 Heart rate 72 /min Michel ROBBINS [facility] [place] 11-16-2023 13:17-0400 Respiratory rate 16 /min Michel ROBBINS [facility] [place] 11-16-2023 13:17-0400 Systolic blood pressure 118 mm[Hg] Michel ROBBINS [facility] [place] 11-04-2023 10:19-0400 Body height 170.2 cm Darrell Olsen MD Work Phone: [facility] 11-04-2023 10:19-0400 Body mass index (BMI) [Ratio] 31.64 kg/m2 Darrell Olsen MD Work Phone: [facility] 11-04-2023 10:19-0400 Body weight 91.63 kg Darrell Olsen MD Work Phone: [facility] 10-29-2023 06:05-0400 Body temperature 97.9 [degF] MD Adithya Herrera Work Phone: [facility] 10-29-2023 06:05-0400 Diastolic blood pressure 74 mm[Hg] MD Adithya Herrera Work Phone: [facility] 10-29-2023 06:05-0400 Heart rate 72 /min MD Adithya Herrera Work Phone: [facility] 10-29-2023 06:05-0400 Respiratory rate 16 /min MD Adithya Herrera Work Phone: [facility] 10-29-2023 06:05-0400 SaO2% (BldA) [Mass fraction] 98 % MD Adithya Herrera Work Phone: [facility] 10-29-2023 06:05-0400 Systolic blood pressure 124 mm[Hg] MD Adithya Herrera Work Phone: [facility] 10-28-2023 09:50-0400 Body height 172.72 cm MD Adithya Herrera Work Phone: [facility] 10-27-2023 14:36-0400 Body weight 90 kg MD Adithya Herrera Work Phone: [facility] 10-08-2023 13:45-0500 Body height 172.7 cm [facility] 10-08-2023 13:45-0500 Body mass index (BMI) [Ratio] 30.77 kg/m2 [facility] 10-08-2023 13:45-0500 Body temperature 97.7 [degF] [facility] 10-08-2023 13:45-0500 Body weight 91.8 kg [facility] 10-08-2023 13:45-0500 Diastolic blood pressure 81 mm[Hg] [facility] [address] [place] [address] 10-08-2023 13:45-0500 Heart rate 74 /min [facility] 10-08-2023 13:45-0500 Respiratory rate 18 /min [facility] 10-08-2023 13:45-0500 SaO2% (BldA) [Mass fraction] 93 % [facility] [address] [place] [address] 10-08-2023 13:45-0500 Systolic blood pressure 125 mm[Hg] [facility] [address] [place] [address] 09-23-2023 11:38-0500 Body height 172.7 cm Charles Tim SOLUTIONS EXECUTIVE SECURITY-CARE CLINICIAN Work Phone: [facility] 09-23-2023 11:38-0500 Body mass index (BMI) [Ratio] 30.41 kg/m2 Charles Tim SOLUTIONS EXECUTIVE SECURITY-CARE CLINICIAN Work Phone: [facility] 09-23-2023 11:38-0500 Body weight 90.72 kg Charles Tim SOLUTIONS EXECUTIVE SECURITY-CARE CLINICIAN Work Phone: [facility] 09-02-2023 09:59-0500 Body height 172.7 cm Charles Tim SOLUTIONS EXECUTIVE SECURITY-CARE CLINICIAN Work Phone: [facility] 09-02-2023 09:59-0500 Body mass index (BMI) [Ratio] 30.41 kg/m2 Charles Tim SOLUTIONS EXECUTIVE SECURITY-CARE CLINICIAN Work Phone: [facility] 09-02-2023 09:59-0500 Body weight 90.72 kg Charles Tim SOLUTIONS EXECUTIVE SECURITY-CARE CLINICIAN Work Phone: [facility] 09-02-2023 09:59-0500 Diastolic blood pressure 77 mm[Hg] Charles Tim SOLUTIONS EXECUTIVE SECURITY-CARE CLINICIAN Work Phone: [facility] 09-02-2023 09:59-0500 Heart rate 74 /min Charles Tim SOLUTIONS EXECUTIVE SECURITY-CARE CLINICIAN Work Phone: [facility] 09-02-2023 09:59-0500 Systolic blood pressure 115 mm[Hg] Charles Tim SOLUTIONS EXECUTIVE SECURITY-CARE CLINICIAN Work Phone: [facility] 08-19-2023 13:20-0500 Body height 172.7 cm Xu Troy PA Work Phone: [facility] 08-19-2023 13:20-0500 Body mass index (BMI) [Ratio] 31.32 kg/m2 Xu Troy PA Work Phone: [facility] 08-19-2023 13:20-0500 Body weight 93.44 kg Xu Troy PA Work Phone: [facility] 08-19-2023 13:20-0500 Diastolic blood pressure 87 mm[Hg] Xu Troy PA Work Phone: [facility] 08-19-2023 13:20-0500 Heart rate 81 /min Xu Troy PA Work Phone: [facility] 08-19-2023 13:20-0500 Respiratory rate 18 /min Xu Troy PA Work Phone: [facility] 08-19-2023 13:20-0500 SaO2% (BldA) [Mass fraction] 98 % Xu Troy PA Work Phone: [facility] 08-19-2023 13:20-0500 Systolic blood pressure 142 mm[Hg] Xu PORRAS Work Phone: [facility] 05-25-2023 09:40-0400 Body height 175.26 cm Trino Cadet Other [facility] Other 05-25-2023 09:40-0400 Body mass index (BMI) [Ratio] 29.83 kg/m2 Trino Cadet Other [facility] Other 05-25-2023 09:40-0400 Body weight 91.63 kg Trino Cadet Other [facility] Other 09-15-2022 15:40-0500 Body height 175.26 cm Trino Cadet Other [facility] Other 09-15-2022 15:40-0500 Body mass index (BMI) [Ratio] 30.27 kg/m2 Trino Cadet Other [facility] Other 09-15-2022 15:40-0500 Body weight 92.99 kg Trino Cadet Other [facility] Other 09-15-2022 15:40-0500 Diastolic blood pressure 70 mm[Hg] Trino Cadet Other [facility] Other 09-15-2022 15:40-0500 Systolic blood pressure 116 mm[Hg] Trino Cadet Other [facility] Other 08-04-2022 12:20-0500 Body height 175.26 cm Trino Cadet Other [facility] Other 08-04-2022 12:20-0500 Body mass index (BMI) [Ratio] 30.27 kg/m2 Trino Cadet Other [facility] Other 08-04-2022 12:20-0500 Body weight 92.99 kg Trino Cadet Other [facility] Other 08-05-2021 12:20-0500 Body height 175.26 cm Trino Cadet Other [employer] Other 08-05-2021 12:20-0500 Body mass index (BMI) [Ratio] 30.27 kg/m2 Trino Cadet Other [employer] Other 08-05-2021 12:20-0500 Body weight 92.99 kg Trino Cadet Other [employer] Other Encounters Encounter Date Encounter Type Care Provider Facility Start: 09-15-2024 End: 09-15-2024 ambulatory DAVE Isaias GARCIA [facility] Start: 08-29-2024 End: 08-29-2024 Office outpatient visit 15 minutes Xu PORRAS Work Phone: [facility] Comment on above: Spinal stenosis of l umbar region with neurogenic claudication (Primary Dx) Start: 08-29-2024 End: 08-29-2024 ambulatory XUDAYANNA TROY [facility] Start: 08-22-2024 End: 08-22-2024 Refill Kathy Ziegler CNA [facility] Comment on above: Lumbosacral spondylo sis without myelopathy Start: 06-27-2024 End: 06-27-2024 Office outpatient visit 15 minutes Xu PORRAS Work Phone: [facility] Comment on above: Lumbosacral spondylo sis without myelopathy (Primary Dx) Start: 06-27-2024 End: 06-27-2024 ambulatory XU TROY [facility] Start: 06-07-2024 End: 06-07-2024 Refill Xu PORRAS Work Phone: [facility] Comment on above: Disorder of sacrum; Lumbosacral spondylosis without myelopathy Start: 05-12-2024 End: 05-12-2024 [facility] Start: 04-29-2024 End: 04-29-2024 ambulatory SCHUYLER GALLEGOSFreida [facility] Start: 04-28-2024 End: 04-28-2024 ambulatory [facility] Start: 04-13-2024 End: 04-13-2024 Office outpatient visit 15 minutes Xu PORRAS Work Phone: [facility] Comment on above: Disorder of sacrum ( Primary Dx) Start: 04-13-2024 End: 04-13-2024 [facility] Start: 04-04-2024 End: 04-06-2024 Refhermes Dey RN [facility] Comment on above: Lumbosacral spondylo sis without myelopathy Start: 02-22-2024 End: 02-22-2024 Office outpatient visit 15 minutes Xu PORRAS Work Phone: [facility] Comment on above: Disorder of sacrum ( Primary Dx); Lumbosacral spondylosis without myelopathy Start: 02-22-2024 End: 02-22-2024 [facility] Start: 02-10-2024 End: 02-10-2024 Office outpatient visit 15 minutes Charles Tim APRN-CARE CLINICIAN Work Phone: [facility] Comment on above: Status post lumbar l aminectomy (Primary Dx) Start: 02-05-2024 End: 02-05-2024 ambulatory SHAI JAMES [facility] Start: 02-04-2024 End: 02-04-2024 ambulatory [facility] Start: 02-04-2024 End: 02-04-2024 ambulatory DAVE GARCIA [facility] Start: 01-20-2024 End: 01-20-2024 Office outpatient visit 15 minutes Xu PORRAS Work Phone: [facility] Comment on above: Disorder of sacrum ( Primary Dx); Lumbosacral spondylosis without myelopathy Start: 01-20-2024 End: 01-20-2024 ambulatory XU TROY [facility] Start: 12-29-2023 End: 12-29-2023 ambulatory Michel ROBBINS Facility:[facility] Start: 12-29-2023 End: 12-29-2023 Patient encounter procedure Michel FUENTESL [facility] Start: 12-22-2023 End: 12-22-2023 ambulatory Michel Robbins Facility:[facility] Start: 12-22-2023 End: 12-22-2023 ambulatory MD Adithya Herrera Work Phone: [facility] Work Phone: Start: 12-22-2023 End: 12-22-2023 Departed Referred MD Adithya Herrera Work Phone: [facility] Start: 12-22-2023 End: 12-22-2023 ambulatory Michel ROBBINS Facility:[id number] Start: 12-20-2023 End: 12-20-2023 Telephone encounter Radha Bustillos RN [facility] Comment on above: pain Start: 12-08-2023 End: 01-15-2024 ambulatory CHARLES TIM [facility] Start: 12-02-2023 End: 12-02-2023 ambulatory ADITHYA HERRERA [facility] Start: 12-02-2023 End: 12-02-2023 Postop follow up visit related to original px Charles Tim SOLUTIONS EXECUTIVE SECURITY-CARE CLINICIAN Work Phone: [facility] Comment on above: Status post lumbar l aminectomy (Primary Dx) Start: 11-26-2023 End: 11-29-2023 Refill Kathy Ziegler CNA [facility] Comment on above: Disorder of sacrum ( Primary Dx) Start: 11-16-2023 End: 11-16-2023 ambulatory Adithya Herrera Facility: [facility] Start: 11-16-2023 End: 11-16-2023 Patient encounter procedure Michel R [facility] N[facility]Said [facility] Start: 11-04-2023 End: 11-04-2023 [facility] Start: 11-04-2023 End: 11-04-2023 Postop follow up visit related to original px Darrell Olsen MD Work Phone: [facility] Comment on above: Status post lumbar l aminectomy (Primary Dx) Start: 10-28-2023 Non-patient / Non-visit MD Marry Herrera Work Phone: [facility] Work Phone: Start: 10-28-2023 End: 10-29-2023 Non-patient / Non-visit MD Adithay Herrera Work Phone: [facility] Work Phone: Start: 10-27-2023 End: 10-29-2023 Evaluation and management of inpatient ADITHYA HERRERA [facility] Start: 10-27-2023 End: 10-29-2023 Evaluation and management of inpatient MD Adithya Herrera Work Phone: [facility] Work Phone: Start: 10-23-2023 End: 10-27-2023 ambulatory MARVA B DEDE [facility] Start: 10-22-2023 End: 10-27-2023 Evaluation and management of inpatient SYLVA Vlad [facility] Start: 10-22-2023 End: 10-27-2023 Evaluation and management of inpatient SYLVA Vlad [facility] Start: 10-08-2023 End: 10-08-2023 ambulatory SYLVA Vlad [facility] Start: 10-08-2023 Telephone encounter Radha Bustillos RN [facility] Start: 10-08-2023 End: 10-08-2023 Patient encounter procedure [facility] Comment on above: Spinal stenosis of l umbar region with neurogenic claudication Start: 10-07-[address] [facility] Facility: [facility] [place] Start: 09-23-2023 End: 09-24-2023 ambulatory [facility] Start: 09-23-2023 Encounter for other preprocedural examination [facility] Start: 09-23-2023 End: 09-23-2023 ambulatory [facility] Start: 09-23-2023 Encounter for other preprocedural examination [facility] Start: 09-23-2023 End: 09-23-2023 Office outpatient new 60 minutes Charles Tim SOLUTIONS EXECUTIVE SECURITY-CARE CLINICIAN Work Phone: [facility] Comment on above: Spinal stenosis of l umbar region with neurogenic claudication (Primary Dx); Pre-op testing; Radiculopathy, lumbar region Start: 09-23-2023 End: 09-23-2023 Patient encounter status Charles Tim SOLUTIONS EXECUTIVE SECURITY-CARE CLINICIAN Work Phone: [facility] Start: 09-16-2023 Refill Kathy Ziegler CNA [facility] Comment on above: Disorder of sacrum Start: 09-02-2023 End: 09-03-2023 ambulatory [facility] Start: 09-02-2023 End: 09-02-2023 Office outpatient new 45 minutes Charles Tim SOLUTIONS EXECUTIVE SECURITY-CARE CLINICIAN Work Phone: [facility] Comment on above: Spinal stenosis of l umbar region with neurogenic claudication (Primary Dx); History of lumbar fusion; Radiculopathy, lumbar region; Lumbar radiculopathy Start: 08-19-2023 End: 08-19-2023 Office outpatient visit 15 minutes Xu PORRAS Work Phone: [facility] Comment on above: Spinal stenosis of l umbar region with neurogenic claudication (Primary Dx) Start: 05-25-2023 End: 05-25-2023 ambulatory Trino Cadet Other [facility] Other Start: 05-25-2023 Office outpatient vi sit 15 minutes Trino Cadet [facility] [place] Start: 05-24-2023 End: 05-24-2023 ambulatory Trino Cadet Facility:[facility] Start: 05-24-2023 End: 05-24-2023 ambulatory MD Adithya Herrera Work Phone: [facility] Work Phone: Start: 05-24-2023 End: 05-24-2023 Patient encounter procedure MD Adithya Herrera Work Phone: [facility] Work Phone: Start: 09-15-2022 End: 09-15-2022 ambulatory Trino Cadet Other [employer] Other Start: 09-15-2022 Office outpatient vi sit 15 minutes Trino Cadet [facility] [place] Start: 09-08-2022 Encounter for genera l adult medical examination without abnormal findings DR ADITHYA HERRERA [facility] Start: 09-03-2022 End: 09-04-[address] ADITHYA HERRERA Facility:[facility] Start: 09-03-2022 End: 09-04-2022 Encounter for general adult medical examination without abnormal findings DR ADITHYA HERRERA Facility:[facility] Start: 08-04-2022 End: 08-04-2022 ambulatory Trino Cadet Other [employer] Other Start: 08-04-2022 Office outpatient vi sit 15 minutes Trino Cadet [facility] [place] Start: 02-03-2022 End: 02-03-[address] ADITHYA HERRERA Facility:[facility] Start: 02-03-2022 End: 02-03-[address] ADITHYA HERRERA Facility:[facility] Start: 01-01-2022 End: 01-01-[address] ADITHYA HERRERA Facility:[facility] Start: 08-05-2021 End: 08-05-2021 ambulatory Trino Cadet Other [facility] Other Start: 08-05-2021 Office outpatient vi sit 15 minutes Trino Cadet [facility] [place] Procedures Date Procedure Procedure Detail Performing [...] Work Phone: Start: 09-03-[address] ADITHYA HERRERA Comment on above: Performed By: #### PSASC #### [facility] [address] [address] [address] Randall Ayoub Arthroscopy of shoulder Keron hernandesfantasma ROSENDO History of lumbar laminectomy Michel ROBBINS History of repair of musculotendinous cuff of shoulder Trino Cadet Other Laser assisted in si tu keratomileusis Michel ROBBINS Lumbar spinal fusion Michel ROBBINS Plan of Treatment Date Care Activity Detail Author Start: 01-01-2032 DTaP,Tdap and Td Vaccines (3 - Td or Tdap) DTaP,Tdap and Td Vaccines (3 - Td or Tdap) [facility] Start: 08-29-2025 Adult BMI Screening Adult BMI Screen ing [facility] Start: 08-29-2025 Tobacco Screening Tobacco Screening [facility] Start: 06-27-2025 Adult BMI Screening Adult BMI Screen ing [facility] Start: 06-27-2025 Tobacco Screening Tobacco Screening [facility] Start: 05-12-2025 Tobacco Screening Tobacco Screening [facility] Start: 04-13-2025 Adult BMI Screening Adult BMI Screen ing [facility] Start: 04-13-2025 Tobacco Screening Tobacco Screening [facility] Start: 02-21-2025 Adult BMI Screening Adult BMI Screen ing [facility] Start: 02-21-2025 Tobacco Screening Tobacco Screening [facility] Start: 02-03-2025 Tobacco Screening Tobacco Screening [facility] Start: 01-19-2025 Adult BMI Screening Adult BMI Screen ing [facility] Start: 01-19-2025 Tobacco Screening Tobacco Screening [facility] Start: 12-01-2024 Adult BMI Screening Adult BMI Screen ing [facility] Start: 12-01-2024 Tobacco Screening Tobacco Screening [facility] Start: 11-09-2024 Tobacco Screening Tobacco Screening [facility] Start: 11-03-2024 Adult BMI Screening Adult BMI Screen ing [facility] Start: 10-05-2024 End: 10-05-2024 Patient encounter procedure 10/05/2024 1:30 PM EST Office Visit [facility] [address] [place] [id number] Xu Troy, PA [address] [place], [place] [id number] [facility] Start: 09-23-2024 Adult BMI Screening Adult BMI Screen ing [facility] Start: 09-23-2024 Tobacco Screening Tobacco Screening [facility] Start: 09-15-2024 End: 09-15-2024 Admission to same day surgery center 09/15/2024 8:27 AM EST - 09/15/2024 8:34 AM EST Surgery [facility] [address] [place] [phone] Dave Garcia MD [address] [place], [place] [id number] INJECTION SPINE TRANSFORAMINAL: right L12 [37361 (CPT )] [facility] Procedures Comment on above: INJECTION SPINE NELSON SFORAMINAL: right L12 [55630 (CPT )] Start: 09-15-2024 End: 09-15-2024 Njx anes&/strd w/img tfrml edrl lmbr/sac 1 lvl INJECTION SPINE TRANSFORAMINAL Spinal stenosis of lumbar region with neurogenic claudication 09/15/2024 8:27 AM EST [facility] Start: 09-15-2024 Subsequent hospital visit by physician 09/15/2024 8:27 AM EST Hospital Encounter [facility] [address] [place] [phone] Dave Garcia MD [address] [facility] [place] [id number] [facility] Start: 09-02-2024 Adult BMI Screening Adult BMI Screen ing [facility] Start: 09-02-2024 Tobacco Screening Tobacco Screening [facility] Start: 08-29-2024 End: 08-29-2024 Patient encounter procedure 08/29/2024 1:00 PM EST Office Visit [facility] [address] [facility] [place] [address] Xu Troy, PA [address] [place] [address] [facility] Start: 08-19-2024 Adult BMI Screening Adult BMI Screen ing [facility] Start: 08-19-2024 Tobacco Screening Tobacco Screening [facility] Start: 06-27-2024 End: 06-27-2024 Patient encounter procedure 06/27/2024 12:45 PM EST Office Visit [facility] [address] [place] [address] Xu Troy, PA [address] [place] [address] [facility] Start: 05-26-2024 End: 05-26-2024 Admission to same day surgery center 05/26/2024 9:30 AM EDT - 05/26/2024 9:42 AM EDT Surgery [facility] [address] [place] [address] Dave Garcia MD [address] [place] [phone] RADIOFREQUENCY ABLATION SPINAL: left SI [78215 (CPT )] [facility] Comment on above: RADIOFREQUENCY ABLAT ION SPINAL: left SI [52285 (CPT )] Start: 05-26-2024 End: 05-26-2024 Radiofrequency abltj nrv nrvtg si jt w/img gdn RADIOFREQUENCY ABLATION SPINAL Disorder of sacrum 05/26/2024 9:30 AM EDT [facility] Start: 05-26-2024 Subsequent hospital visit by physician 05/26/2024 9:30 AM EDT Hospital Encounter [facility] [address] [place] [address] Dave Garcia MD [address] [place] [address] [facility] Start: 05-12-2024 End: 05-12-2024 Admission to same day surgery center 05/12/2024 12:12 PM EDT - 05/12/2024 12:24 PM EDT Surgery [facility] [address] [place] [phone] Dave Garcia MD [address] [facility] [place] [address] RADIOFREQUENCY ABLATION SPINAL: right SI [49488 (CPT )] [facility] Comment on above: RADIOFREQUENCY ABLAT ION SPINAL: right SI [43061 (CPT )] Start: 05-12-2024 End: 05-12-2024 Radiofrequency abltj nrv nrvtg si jt w/img gdn RADIOFREQUENCY ABLATION SPINAL Disorder of sacrum 05/12/2024 12:12 PM EDT [facility] Start: 05-12-2024 Subsequent hospital visit by physician 05/12/2024 12:12 PM EDT Hospital Encounter [facility] [address] [place] [phone] Dave Garcia MD [address] [place] [address] [facility] Start: 04-16-2024 COVID-19 Vaccine ( season) COVID-19 Vaccine ( season) [facility] Start: 04-16-2024 Influenza vaccination Influenza Vacc ine [facility] Start: 04-13-2024 End: 04-13-2024 Patient encounter procedure 04/13/2024 2:15 PM EDT Office Visit [facility] [address] [place] [phone] Xu Troy PA [address] 2[address] Floor [place], [place] [phone] [facility] Start: 03-14-2024 End: 03-14-2024 Patient encounter procedure 03/14/2024 2:00 PM EDT Office Visit [facility] [address] [place] [phone] Darrell Olsen MD [address] [place] [phone] [facility] Start: 02-22-2024 End: 02-22-2024 Patient encounter procedure 02/22/2024 2:45 PM EDT Office Visit [facility] [address] [place] [phone] Xu Troy PA [address] [place] [address] [facility] Start: 02-10-2024 End: 02-10-2024 Patient encounter procedure 02/10/2024 10:30 AM EDT Office Visit [facility] [address] [place] [phone] Darrell Olsen MD [address] [place] [phone] [facility] Start: 02-04-2024 End: 02-04-2024 Admission to same day surgery center 02/04/2024 11:46 AM EDT - 02/04/2024 11:53 AM EDT Surgery [facility] [address] [place] [phone] Dave Garcia MD [address] [facility], [place] [phone] INJECTION BLOCK SACROILIAC JOINT [06189 (CPT )] [facility] Comment on above: INJECTION BLOCK SACR OILIAC JOINT [22225 (CPT )] Start: 02-04-2024 End: 02-04-2024 Inject si joint arthrgrphy&/anes/steroid w/cas INJECTION BLOCK SACROILIAC JOINT Disorder of sacrum 02/04/2024 11:46 AM EDT [facility] Start: 02-04-2024 Subsequent hospital visit by physician 02/04/2024 11:46 AM EDT Hospital Encounter [facility] [address] [place] [phone] Dave Garcia MD [address] [facility] [place], [place] [phone] [facility] Start: 12-02-2023 End: 12-02-2023 Patient encounter procedure 12/02/2023 3:00 PM EDT Office Visit [facility] [place] [phone] Darrell Olsen MD [address] [place] [address] [address] [place] [phone] [facility] Start: 10-29-2023 [facility] Start: 10-27-2023 Hospital admission [facility] Start: 10-27-2023 Referral to clinical brand protection manager [facility] Start: 10-22-2023 End: 10-22-2023 Admission to same day surgery center 10/22/2023 7:30 AM EST - 10/22/2023 9:15 AM EST Surgery [facility] Surgery [address] [place] [address]. [place] [phone] Darrell Olsen MD [address] [place] [address] [address] [place] [phone] LAMINECTOMY LUMBAR SINGLE LEVEL / L1-L2 [facility] Comment on above: LAMINECTOMY LUMBAR S RICHMOND LEVEL / L1-L2 Start: 10-22-2023 End: 10-22-2023 LAMINECTOMY LUMBAR SINGLE LEVEL LAMINECTOMY LUMBAR SINGLE LEVEL Spinal stenosis of lumbar region with neurogenic claudication 10/22/2023 7:30 AM EST [facility] Start: 10-22-2023 Subsequent hospital visit by physician 10/22/2023 7:30 AM EST Hospital Encounter [facility] Surgery [address] [place] [address]. [place] [address] Darrell Olsen MD [address] [place] [address] [address] [place] [phone] [facility] Start: 10-08-2023 End: 10-08-2023 Patient encounter procedure 10/08/2023 1:15 PM EST Procedure visit [facility] On [address] [phone] [facility] Start: 09-23-2023 End: 09-23-2023 Patient encounter procedure 09/23/2023 11:50 AM EST Office Visit [facility] [address] [place] [phone] Darrell Olsen MD [address] [place] [address] [address] [place] [phone] [facility] Start: 09-02-2023 End: 09-02-2024 XR Lumbar spine Views AP W right bending and W left bending [facility] Work Phone: Comment on above: Expected: 09/02/2023 , Expires: 09/02/2024 Start: 09-02-2023 End: 09-02-2023 Patient encounter procedure 09/02/2023 10:15 AM EST Office Visit [facility] [address] [place] [phone] Darrell Olsen MD [address] [place] [address] [address] [place] [phone] [facility] Start: 1987 Adult BMI Follow Up Plan Adult BMI Follow Up Plan [facility] Start: 1981 Depression Screening Depression Scre ening [facility] End: 09-01-2024 CT Lumbar spine WO contrast CT lumbar spine without contrast Imaging Routine Spinal stenosis of lumbar region with neurogenic claudication History of lumbar fusion Radiculopathy, lumbar region Lumbar radiculopathy 1 Occurrences starting 09/02/2023 until 09/01/2024 [facility] Comment on above: 1 Occurrences starti ng 09/02/2023 until 09/01/2024 Patient Education Spinal Stenosi s (DC) Spinal Fusion (DC) [facility] Work Phone: Patient referral [facility] Work Phone: Immunizations Immunization Date Immunization Notes Care Provider Fa cility 05-19-2023 influenza virus vaccine, unspecified formulation [facility] 04-28-2022 SARS-CoV-2 (COVID-19 ) [id number] Michel ROBB[facility] 08-04-2021 SARS-CoV-2 (COVID-19 ) mRNA BNT-162b2 vax Michel ROBBINS [facility] 11-16-2020 SARS-CoV-2 (COVID-19 ) mRNA BNT-162b2 vax Michel NILL [facility] 10-26-2020 SARS-CoV-2 (COVID-19 ) mRNA BNT-162b2 augie ROBBINS [facility] [place] Payers Date Payer Category Payer Medicare [id number] 2023 Medicare [employer] [place] [employer] DEVOTED [employer] MEDICARE ADVANTAGE [id number] 2023-Present [phone] [address] [place] [address] [id number] 2023 Medicare HMO [employer]OT[employer] [facility] [id number] 2023 Unknown [facility] DEVOTED HEALTH MEDICARE ADVANTAGE [id number] 2023-Present [phone] [address] [place] [address] [id number] 2023 Medicare [id number] 2023 Self-pay [id number] 1970 Unknown [id number] 2.16.840.1.961662.3.579.2 .593 1970 Unknown [id number] 2.16.840.1.238158.3.579.2 .593 1969 Unknown [id number] 2.16.840.1.833859.3.579.2 .593 1969 Unknown [id number] 2.16.840.1.056822.3.579.2 .593 1969 Unknown [id number] 2.16.840.1.053269.3.579.2 .1286 1969 Unknown [id number] 2.16.840.1.447926.3.579.2 .1286 1970 Unknown [id number] 2.16.840.1.022919.3.579.2 .1286 1969 Unknown [id number] 2.16.840.1.369053.3.579.2 .128 1969 Unknown [id number] 2.16.840.1.588257.3.579.2 .128 1969 Unknown [id number] 2.16.840.1.902156.3.579.2 .128 1969 Unknown [id number] 2.16.840.1.734840.3.579.2 .128 1969 Unknown [id number] 2.16.840.1.628015.3.579.2 .128 1969 Unknown [id number] 2.16.840.1.351940.3.579.2 .128 1969 Unknown [id number] 2.16.840.1.005933.3.579.2 .128 1969 Unknown [id number] 2.16.840.1.850739.3.579.2 .128 1969 Unknown [id number] 2.16.840.1.138689.3.579.2 .128 1969 Unknown [id number] 2.16.840.1.904480.3.579.2 .727 1969 Unknown [id number] 2.16.840.1.570943.3.579.2 .727 1969 Unknown [id number] 2.16.840.1.925253.3.579.2 .727 1969 Unknown [id number] 2.16.840.1.067858.3.579.2 .1285 1969 Unknown [id number] 2.16.840.1.044656.3.579.2 .1285 1969 Unknown [id number] 2.16.840.1.404756.3.579.2 .1285 1969 Unknown [id number] 2.16.840.1.175523.3.579.2 .1285 1969 Unknown [id number] 2.16.840.1.357731.3.579.2 .1285 1969 Unknown [id number] 2.16.840.1.747906.3.579.2 .1285 1969 Unknown [id number] 2.16.840.1.898569.3.579.2 .1285 1969 Unknown [id number] 2.16.840.1.067091.3.579.2 .1285 1969 Unknown [id number] 2.16.840.1.010558.3.579.2 .1285 1969 Unknown [id number] 2.16.840.1.831897.3.579.2 .1285 1969 Unknown [id number] 2.16.840.1.932568.3.579.2 .1285 1969 Unknown [id number] 2.16.840.1.717679.3.579.2 .1285 1969 Unknown [id number] 2.16.840.1.928540.3.579.2 .1285 1969 Unknown [id number] 2.16.840.1.933430.3.579.2 .1285 1969 Unknown [id number] 2.16.840.1.229537.3.579.2 .1286 1969 Unknown [id number] 2.16.840.1.766999.3.579.2 .1286 1969 Unknown [id number] 2.16.840.1.524452.3.579.2 .1286 1969 Unknown [id number] 2.16.840.1.637743.3.579.2 .1286 1959 Unknown [id number] Private Health Insurance [id number] 2.16.840.1.761189.19 Unknown [id number] 2.16.840.1.351868.3.579.2 .531 Unknown [id number] 2.16.840.1.378944.3.579.2 .531 Unknown [id number] 2.16.840.1.916111.3.579.2 .531 Social History Date Type Detail Facility Start: 09-26-2020 End: 10-25-2023 Sex Assigned At [facility] Start: 05-29-2020 End: 10-08-2023 Tobacco smoking status NDIS Never smoked tobacco (finding) [facility] Start: 1970 Sex Assigned At Male F [facility] Tobacco smoking status Never [facility] Start: 06-04-2022 End: 10-08-2023 Tobacco use and exposure Former smokeless tobacco user [facility] End: 08-16-1996 History of tobacco use Chews Tobacco [facility] Start: 05-12-2024 End: 06-27-2024 Alcoholic beverage intake Ex-drinker (finding) [facility] Start: 09-26-2020 End: 10-25-2023 History of Social function [facility] Has the [employer], [employer], or water [employer] threatened to shut off services in your home in past 12Mo No [facility] Start: 01-24-2018 Alcohol Comment stopped 18 months ag o [facility] Start: 1970 Sex assigned at Not on file [facility] Start: 03-21-2015 Sex Male (finding) [facility] Medical Equipment Procedure Code Equipment Code Equipment Origin al Text Equipment Identifier Dates Fusion, spine, lumbar, XLIF CANCELLOUS 7.5 CRUSHED FDA Start: 05-29-2020 Fusion, spine, lumbar, XLIF Bone-screw internal spinal fixation system, non-sterile [id number] FDA Start: 05-29-2020 Fusion, spine, lumbar, XLIF CANCELLOUS COARSE 7.5CC FDA Start: 05-29-2020 Fusion, spine, lumbar, XLIF Orthopaedic bone screw, non-bioabsorbable, non-sterile [id number] FDA Start: 05-29-2020 Fusion, spine, lumbar, XLIF Orthopaedic bone screw, non-bioabsorbable, non-sterile [id number] FDA Start: 05-29-2020 Fusion, spine, lumbar, XLIF STRATOFUSE DBM 10CC FDA Start: 05-29-2020 Fusion, spine, lumbar, XLIF Bone-screw internal spinal fixation system, non-sterile [id number] FDA Start: 05-29-2020 Fusion, spine, lumbar, XLIF Bone-screw internal spinal fixation system, non-sterile [id number] FDA Start: 05-29-2020 Fusion, spine, lumbar, XLIF STRATOFUSE DBM 5CC FDA Start: 05-29-2020 Fusion, spine, lumbar, XLIF Spinal fusion graft kit [id number] FDA Start: 05-29-2020 Fusion, spine, lumbar, XLIF Metallic spinal fusion cage, non-sterile [id number] FDA Start: 05-29-2020 Fusion, spine, lumbar, XLIF Metallic spinal fusion cage, non-sterile [id number] FDA Start: 05-29-2020 Fusion, spine, lumbar, XLIF Polymeric spinal interbody fusion cage ()[id number] FDA Start: 05-29-2020 Fusion, spine, lumbar, XLIF [...] Start: 05-29-2020 Kt Repr Shldr Ea=Bill-Only - [id number] - [id number] Start: 06-07-2018 Goals Date Patient Goal Desired Activity /State Personal health goal Comment on above: Formatting of this n ote might be different from the original. Evaluation of progress towards goal: Patient will discharge to inpatient rehab versus Home health care. - Yakov Mary RN 10/25/23 12:13 PM Functional Status Date Assessment Result Facility 11-16-2023 Functional Status N/A [facility] 10-27-2023 Functional status Patient Not at Baseline [facility] Work Phone: Mental Status Date Assessment Result Facility 10-27-2023 Cognitive function Cognitive Sta tus Patient Not at Baseline [facility] Work Phone: Clinical Notes 06-07-2018 to 08-29-2024 CHIQUITA Wong - 08/29/2024 1:00 PM ESTPatient InstructionsTelephone Encounter - Kathy Ziegler CNA - 08/22/2024 11:10 AM ESTTelephone Encounter - Kathy Ziegler CNA - 08/22/2024 11:10 AM EST Note Date & Type Note Facility 08-29-2024 History of Presen t illness Narrative [facility] [address] [place] [address] Patient: Celestino Ziegler Sex: male : 1970 Age: 54 y.o. PCP: ADITHYA HERRERA MD 08/29/2024 Celestino Ziegler is here for a follow up. He reports increased right low back and leg pain. Date of onset of pain: Childhood , pain has lasted greater than 3 months. Chief Complaint Patient presents with Back Pain [...] of groin pain. His worst pain now is higher on the right 04/16/2023 Right L1/2 NRI with 0 relief 06/04/2023 bilateral sacroiliac injection with 75% relief 02/04/2024 bilateral sacroiliac joint with 80-90% relief x 2 days and 60-70% continued relief. 100% relief of groin pain 04/28/24 Right SI RFA 90-95% relief that continues 05/12/24 Left SI RFA 90-95% relief that continues October 2023 Patient had laminectomy with Dr Olsen. Patient completed Aquatic Therapy 6-8 sessions. Last session 01-14-2024 and they discharged him due to being no help. Patient states he plans on open swimming at the pool. Back Pain This is a chronic problem. The current episode started more than 1 year ago (childhood). The problem occurs intermittently. The problem has been gradually worsening since onset. The pain is present in the lumbar spine, sacro-iliac and gluteal. The quality of the pain is described as aching, shooting and stabbing (jabbing). The pain radiates to the right thigh and left thigh (Rt hip, Rt groin). The pain is at a severity of 8/10. The pain is moderate. The pain is Worse during the night. The symptoms are aggravated by bending, twisting, sitting, position and standing (heavy lifting, walking, stairs, standing, twisting and bending ). Stiffness is present In the morning. Associated symptoms include leg pain (Daniel thigh). Pertinent negatives include no abdominal pain, bladder incontinence, bowel incontinence, chest pain, fever, numbness, tingling or weakness. Risk factors include poor posture and obesity. He has tried home exercises (DR cid/CHARLEY, NSAID (naproxen, diclofenac), Gabapentin,rest, ice/heat slight relief,) for the symptoms. The treatment provided moderate relief. The effect of pain on patient's ADLS: Moderate Impairment. Past Medical History: Diagnosis Date Alcoholism (CMS-HCC) Anemia Asthma Back pain Chronic pain disorder Cough Environmental allergies Hypertension history of this, not currently treated Hypothyroidism Low back pain Neck pain Spinal stenosis of lumbar region with neurogenic claudication Visual impairment lasik Past Surgical History: Procedure Laterality Date ARTHROSCOPY REPAIR LESION SUPERIOR LABRUM EXTENDING FROM ANTERIOR TO POSTERIOR (SLAP) SHOULDER Left 06/07/2018 Performed by Jr Christian Estrada DO at [facility] ARTHROSCOPY REPAIR ROTATOR CUFF SHOULDER Left 06/07/2018 Performed by Jr Christian Estrada DO at [facility] ARTHROSCOPY SHOULDER Left 06/07/2018 Performed by Jr Christian Estrada DO at [facility] INJECTION BLOCK SACROILIAC JOINT Bilateral 02/04/2024 Performed by Dave Garcia MD at [facility] INJECTION BLOCK SACROILIAC JOINT Bilateral 06/04/2023 Performed by Dave Garcia MD at [facility] INJECTION BLOCK SACROILIAC JOINT Bilateral 03/19/2023 Performed by Dave Garcia MD at [facility] INJECTION BLOCK SACROILIAC JOINT Bilateral 01/15/2023 Performed by Dave Garcia MD at [facility] INJECTION BLOCK SACROILIAC JOINT Bilateral 09/04/2022 Performed by Dave Garcia MD at [facility] INJECTION BLOCK SACROILIAC JOINT Right 05/22/2022 Performed by Dave Garcia MD at [facility] INJECTION BLOCK SACROILIAC JOINT Bilateral 02/20/2022 Performed by Dave Garcia MD at [facility] INJECTION BLOCK SACROILIAC JOINT Bilateral 10/20/2021 Performed by Dave Garcia MD at [facility] INJECTION BLOCK SACROILIAC JOINT Bilateral 12/13/2020 Performed by aDve Garcia MD at [facility] INJECTION BURSA LARGE JOINT Right hip intra-articular Right 02/21/2021 Performed by Dave Garcia MD at [facility] INJECTION BURSA LARGE JOINT: right hip Right 03/27/2022 Performed by Dave Garcia MD at [facility] INJECTION CAUDAL EPIDURAL WITH CATHETER, STEROID N/A 02/23/2020 Performed by Dave Garcia MD at [facility] INJECTION CAUDAL EPIDURAL WITH CATHETER, STEROID N/A 01/15/2020 Performed by Dave Garcia MD at [facility] INJECTION CAUDAL EPIDURAL WITH CATHETER, STEROID N/A 06/23/2019 Performed by Dave Garcia MD at [facility] INJECTION CAUDAL EPIDURAL WITH CATHETER, STEROID N/A 05/05/2019 Performed by Dave Garcia MD at [facility] INJECTION CAUDAL EPIDURAL WITH CATHETER, STEROID N/A 08/12/2018 Performed by Dave Garcia MD at [facility] INJECTION CAUDAL EPIDURAL WITH CATHETER, STEROID 1 of 2 N/A 01/28/2018 Performed by Dave Garcia MD at [facility] INJECTION CAUDAL EPIDURAL WITH CATHETER, STEROID 2 of 2 N/A 02/11/2018 Performed by Dave Garcia MD at [facility] INJECTION SPINE TRANSFORAMINAL Left L 1,2 Nroot Left 01/24/2021 Performed by Dave Garcia MD at [facility] INJECTION SPINE TRANSFORAMINAL: left L 1,2 nroot Left 04/17/2022 Performed by Dave Garcia MD at [facility] INJECTION SPINE TRANSFORAMINAL: right L 1,2 nroot Right 04/16/2023 Performed by Dave Garcia MD at [facility] LAMINECTOMY LUMBAR SINGLE LEVEL / L1-L2 N/A 10/22/2023 Performed by Darrell Olsen MD at [facility] LUMBAR FUSION 2020 L2-S1 RADIOFREQUENCY ABLATION SPINAL: left SI Left 05/12/2024 Performed by Dave Garcia MD at [facility] RADIOFREQUENCY ABLATION SPINAL: right SI Right 04/28/2024 Performed by Dave Garcia MD at [facility] REFRACTIVE SURGERY Bilateral No Known Allergies Family History Problem Relation Age of Onset Heart disease Mother Diabetes Mother Back Problems Father Alcohol abuse Father Cirrhosis Father Anesthesia problems Neg Hx Social History Socioeconomic History Marital status: Spouse name: Not on file Number of children: Not on file Years of education: Not on file Highest education level: Not on file Occupational History Not on file Tobacco Use Smoking status: Never Smokeless tobacco: Former Types: Chew Quit date: 1996 Vaping Use Vaping status: Former Substances: THC, CBD Devices: Disposable Substance and Sexual Activity Alcohol use: Not Currently Comment: stopped 18 months ago Drug use: Yes Frequency: 7.0 times per week Types: Marijuana, Medical Marijuana Comment: daily use Sexual activity: Defer Other Topics Concern Not on file Social History Narrative Not on file Social Drivers of Health Financial Resource Strain: Not on file Food Insecurity: No Food Insecurity (08/29/2024) Hunger Screening Food Insecurity - Worry: Never True Food Insecurity - Inability: Never True Transportation Needs: No Transportation Needs (10/25/2023) PRAPARE - Transportation Lack of Transportation (Medical): No Lack of Transportation (Non-Medical): No Physical Activity: Not on file Stress: Not on file Social Connections: Not on file Interpersonal Safety: Not At Risk (10/25/2023) Humiliation, Afraid, Rape, and Kick questionnaire Fear of Current or Ex-Partner: No Emotionally Abused: No Physically Abused: No Sexually Abused: No Housing Instability: Low Risk (10/25/2023) Housing Instability Housing Instability: No Review of Systems Constitutional: Negative for chills and fever. HENT: Negative. Eyes: Negative. Respiratory: Negative for cough and shortness of breath. Cardiovascular: Negative for chest pain. Gastrointestinal: Negative. Negative for abdominal pain and bowel incontinence. Endocrine: Negative. Genitourinary: Negative. Negative for bladder incontinence. Musculoskeletal: Positive for back pain. Skin: Negative. Allergic/Immunologic: Negative. Neurological: Negative for tingling, weakness and numbness. Hematological: Negative. Psychiatric/Behavioral: Negative. Vital Signs: BP 134/88 (BP Site: Left Arm) Pulse 78 Ht 172.7 cm (5' 8 ) Wt 90.3 kg (199 lb) SpO2 99% BMI 30.26 kg/m Physical Exam: GENERAL - Healthy patient [...] during discussion, demonstrated appropriate cognitive reasoning and understanding of the medical condition by asking appropriate questions [...] spine and paraspinal musculature. Pain is elicited with flexion, extension, and lateral rotation of the lumbar [...] all dermatomal distributions. Straight Leg Raise is Positive on the Right Gait is normal. Assessment/Treatment Plan: Celestino was seen today for back pain. Diagnoses and all orders for this visit: Spinal stenosis of lumbar region with neurogenic claudication - Case request operating room: INJECTION SPINE TRANSFORAMINAL: right L12 Continue Gabapentin 800 mg TID Right L1, 2 Nerve Root Injection - under fluoroscopy with the use of contrast dye (unless contraindicated) It is hopeful that the described procedure will provide symptomatic pain relief. It is felt to be medically necessary noting that the patient has tried and failed more conservative modalities of therapy and this is the next most appropriate step. The procedure was described in detail to the patient as well as the potential benefits of pain reduction alongside risks of the procedure and alternatives. Risks were described as including, but not limited to bleeding, infection, nerve damage, spinal cord injury, paralysis, stroke, dural puncture headache, and medication reaction. The patient expressed understanding regarding the risks and benefits and wishes to proceed. It was explained that Nerve Root Injections and Transforaminal Epidural Injections often require a series of 2-3 before significant relief is noted, but we will determine after each injection if another one is indicated. Depending on the amount and duration of relief obtained from the injection, additional modalities of therapy including medications and physical therapy may need to be utilized alongside or following the injections. Follow up 2 weeks after procedure The medications I have prescribed have been [...] as to the type of medication prescribed along with directions for use. Potential side effects have [...] reviewed, discussed and appropriate for medications prescribed. The spine model was demonstrated and MRI was reviewed and used to explain the condition. OARRS: Reviewed. Scribe Statement: Kathy Carr CNA, scribed for and in the presence of CHIQUITA WONG who performed the above service. Provider Statement: XU Carr PA, personally performed the services described in the documentation, as scribed by Kathy Ziegler CNA in my presence, and it is both accurate and complete. Kathy Ziegler CNA 08/29/24 1409 CHIQUITA Wong 08/29/24 1512 documented in this encounter [facility] 08-29-2024 Instructions Kathy Ziegler MOHINDER - 08/29/2024 1:00 PM EST Epidural Steroid Injection (CELESTE) / Nerve Root Injection / Nerve Block These procedure(s) involve the injection of a steroid and anesthetic into the epidural space or the nerve sheath that is both diagnostic and potentially therapeutic for alleviating discomfort of the legs and arms secondary to compression of the respective nerves due to bulging discs, bone spurs and other potential causes. Steroids are potent anti-inflammatory drugs that act to decrease the swollen and inflamed nerves thus relieving your clinical symptoms. How Long Will This Procedure Last? The extent and duration of pain relief may depend on the amount of inflammation and how many areas are involved. Other coexisting factors may be responsible for your pain. You and your physician will discuss expected results of procedure(s). After Your Injection You may experience soreness and tenderness at the area of treatment. This pain may not occur until later today after the numbing medicine wears off. The steroid can take 3-5 days to work and provide noticeable improvement. Activity You may feel temporary numbness, weakness or tingling: In the neck, arm, or fingertips (if your procedure was done in your neck) In the legs (if your procedure was done in your lower back) These symptoms are normal, and should subside within 3-4 hours. In that time, be careful to avoid falls. As a safety precaution, you must have a mechanic welder truck driver after a lumbar nerve root injection, even if you do not receive sedation. Resume activity as tolerated when function has returned. Medications Resume your routine medications after your procedure. You may resume blood thinners per your regular schedule after the procedure. If you received sedation: If you received sedation for your procedure, you may feel sleepy or not yourself for several hours today. For the next 24 hours avoid activities that requires alertness or coordination. This includes: Driving or operating heavy machinery Using power tools Consuming alcohol Do not make important or complex decisions or sign legal documents in the next 24 hours. Other Instructions: If you feel severe pain at the injection site with swelling and redness, increased leg weakness, a fever of 101 or higher, headache (or worsening headache), changes in vision or urinary retention: Please call the office at , or have someone take you to the nearest emergency room. Tell the emergency room staff that you recently had a spine injection. A doctor must evaluate you for bleeding and injection complications. If you lose control over bowel, bladder, or legs: Go to the nearest emergency room. If you are diabetic, the steroids used in this procedure can increase your blood sugar. If your blood sugar is 250mg/dL or higher, contact your primary care physician, or the doctor who manages your diabetes, to discuss how to get it back to normal. documented in this encounter [facility] 08-22-2024 Miscellaneous Notes Last OV: 06/27/24 Next OV: 09/01/24 OARRS appropriate: yes Last UDS: na Pharmacy: [facility] documented in this encounter [facility] 08-22-2024 Telephone encounter Note Last OV: 06/27/24 Next OV: 09/01/24 OARRS appropriate: yes Last UDS: na Pharmacy: [facility] 06-27-2024 History of Presen t illness Narrative [facility] [address] [place] [address] Patient: Celestino Ziegler Sex: male : 1970 Age: 54 y.o. PCP: ADITHYA HERRERA MD 06/27/2024 Celestino Maldonadodeepaisaias is here for a(n) post procedure follow up right and left SI RFA with 90-95% relief that continues. Patient states is feeling better since the RFAs. Patient reports no pain at this time, but can increase to 7/10 depending on activity. Patient states pain is worse first thing in the morning. Reports lateral thigh pain that feels like having bricks to his thighs. Date of onset of pain: pain has lasted greater than 3 months. Pain scale before treatment: 4/10 Pre-op pain score: 3/10 Percentage of relief after and duration: right and left SI RFA with 90-95% relief that continues Pain scale after treatment: 02/22 No chief complaint on file. HPI: Previous Caudal ESIs w/ sig relief. [...] of groin pain. His worst pain now is higher on the right 04/16/2023 Right L1/2 NRI with 0 relief 06/04/2023 bilateral sacroiliac injection with 75% relief 02/04/2024 bilateral sacroiliac joint with 80-90% relief x 2 days and 60-70% continued relief. 100% relief of groin pain 04/28/24 Right SI RFA 90-95% relief that continues 05/12/24 Left SI RFA 90-95% relief that continues October 2023 Patient had laminectomy with Dr Olsen. Patient completed Aquatic Therapy 6-8 sessions. Last session 01-14-2024 and they discharged him due to being no help. Patient states he plans on open swimming at the pool. Back Pain This is a chronic problem. The current episode started more than 1 year ago (childhood onset). The problem occurs intermittently. The problem has been gradually improving (post SI RFAs) since onset. The pain is present in the lumbar spine and sacro-iliac. The quality of the pain is described as aching (jabbing, depends on activity). The pain radiates to the right thigh and left thigh (aches to anterior aspect of thighs). Pain scale: can get up to 7/10 depending on activity. The pain is moderate (to severe). The pain is Worse during the day (varies based on the amount of activity). The symptoms are aggravated by bending, twisting, sitting, position and standing (heavy lifting, walking, stairs, standing, twisting and bending ). Stiffness is present: n/a. Associated symptoms include leg pain (anterior bilateral thighs) and numbness (intermittently down bilateral thighs). Pertinent negatives include no abdominal pain, bladder incontinence, bowel incontinence, chest pain, fever, tingling or weakness. Risk factors include poor posture and obesity. He has tried home exercises (DR cid/CHARLEY, NSAID (naproxen, diclofenac), Gabapentin,rest, ice/heat slight relief,) for the symptoms. The treatment provided moderate relief. The effect of pain on patient's ADLS: Moderate Impairment. Past Medical History: Diagnosis Date Alcoholism ([facility]-HCC) Anemia Asthma Back pain Chronic pain disorder Cough Environmental allergies Hypertension history of this, not currently treated Hypothyroidism Low back pain Neck pain Spinal stenosis of lumbar region with neurogenic claudication Visual impairment ivánik Past Surgical History: Procedure Laterality Date ARTHROSCOPY REPAIR LESION SUPERIOR LABRUM EXTENDING FROM ANTERIOR TO POSTERIOR (SLAP) SHOULDER Left 06/07/2018 Performed by Jr Christian Estrada DO at [facility] ARTHROSCOPY REPAIR ROTATOR CUFF SHOULDER Left 06/07/2018 Performed by Jr Christian Estrada DO at [facility] ARTHROSCOPY SHOULDER Left 06/07/2018 Performed by Jr Christian Estrada DO at [facility] INJECTION BLOCK SACROILIAC JOINT Bilateral 02/04/2024 Performed by Dave Garcia MD at [facility] INJECTION BLOCK SACROILIAC JOINT Bilateral 06/04/2023 Performed by Dave Garcia MD at [facility] INJECTION BLOCK SACROILIAC JOINT Bilateral 03/19/2023 Performed by Dave Garcia MD at [facility] IN[facility]CTION BLOCK SACROILIAC JOINT Bilateral 01/15/2023 Performed by Dave Garcia MD at [facility] IN[facility]CTION BLOCK SACROILIAC JOINT Bilateral 09/04/2022 Performed by Dave Garcia MD at [facility] IN[facility] BLOCK SACROILIAC JOINT Right 05/22/2022 Performed by Dave Garcia MD at [facility] IN[facility]CTION BLOCK SACROILIAC JOINT Bilateral 02/20/2022 Performed by Dave Garcia MD at [facility] IN[facility] BLOCK SACROILIAC JOINT Bilateral 10/20/2021 Performed by Dave Garcia MD at [facility] IN[facility]CTION BLOCK SACROILIAC JOINT Bilateral 12/13/2020 Performed by Dave Garcia MD at [facility] INJECTION BURSA LARGE JOINT Right hip intra-articular Right 02/21/2021 Performed by Dave Garcia MD at [facility] INJECTION BURSA LARGE JOINT: right hip Right 03/27/2022 Performed by Dave Garcia MD at [facility] IN[facility] CAUDAL EPIDURAL WITH CATHETER, STEROID N/A 02/23/2020 Performed by Dave Garcia MD at [facility] CAUDAL EPIDURAL WITH CATHETER, STEROID N/A 01/15/2020 Performed by Dave Garcia MD at [facility] CAUDAL EPIDURAL WITH CATHETER, STEROID N/A 06/23/2019 Performed by Dave Garcia MD at [facility] CAUDAL EPIDURAL WITH CATHETER, STEROID N/A 05/05/2019 Performed by Dave Garcia MD at [facility] CAUDAL EPIDURAL WITH CATHETER, STEROID N/A 08/12/2018 Performed by Dave Garcia MD at [facility] CAUDAL EPIDURAL WITH CATHETER, STEROID 1 of 2 N/A 01/28/2018 Performed by Dave Garcia MD at [facility] CAUDAL EPIDURAL WITH CATHETER, STEROID 2 of 2 N/A 02/11/2018 Performed by Dave Garcia MD at [facility] SPINE TRANSFORAMINAL Left L 1,2 Nroot Left 01/24/2021 Performed by Dave Garcia MD at [facility] SPINE TRANSFORAMINAL: left L 1,2 nroot Left 04/17/2022 Performed by Dave Garcia MD at [facility] INJECTION SPINE TRANSFORAMINAL: right L 1,2 nroot Right 04/16/2023 Performed by Dave Garcia MD at [facility] LAMINECTOMY LUMBAR SINGLE LEVEL / L1-L2 N/A 10/22/2023 Performed by Darrell Olsen MD at [facility] LUMBAR FUSION 2019 L2-S1 RADIOFREQUENCY ABLATION SPINAL: left SI Left 05/12/2024 Performed by Dave Garcia MD at [facility] RADIOFREQUENCY ABLATION SPINAL: right SI Right 04/28/2024 Performed by Dave Garcia MD at [facility] REFRACTIVE SURGERY Bilateral No Known Allergies Family History Problem Relation Age of Onset Heart disease Mother Diabetes Mother Back Problems Father Alcohol abuse Father Cirrhosis Father Anesthesia problems Neg Hx Social History Socioeconomic History Marital status: Spouse name: Not on file Number of children: Not on file Years of education: Not on file Highest education level: Not on file Occupational History Not on file Tobacco Use Smoking status: Never Smokeless tobacco: Former Types: Chew Quit date: 1996 Vaping Use Vaping status: Former Substances: THC, CBD Devices: Disposable Substance and Sexual Activity Alcohol use: Not Currently Comment: stopped 18 months ago Drug use: Yes Frequency: 7.0 times per week Types: Marijuana, Medical Marijuana Comment: daily use Sexual activity: Defer Other Topics Concern Not on file Social History Narrative Not on file Social Drivers of Health Financial Resource Strain: Not on file Food Insecurity: No Food Insecurity (06/27/2024) Hunger Screening Food Insecurity - Worry: Never True Food Insecurity - Inability: Never True Transportation Needs: No Transportation Needs (10/25/2023) PRAPARE - Transportation Lack of Transportation (Medical): No Lack of Transportation (Non-Medical): No Physical Activity: Not on file Stress: Not on file Social Connections: Not on file Interpersonal Safety: Not At Risk (10/25/2023) Humiliation, Afraid, Rape, and Kick questionnaire Fear of Current or Ex-Partner: No Emotionally Abused: No Physically Abused: No Sexually Abused: No Housing Instability: Low Risk (10/25/2023) Housing Instability Housing Instability: No Review of Systems Constitutional: Negative. Negative for fever. HENT: Negative. Negative for congestion and sore throat. Eyes: Negative. Respiratory: Negative. Negative for cough and shortness of breath. Cardiovascular: Negative. Negative for chest pain. Gastrointestinal: Negative. Negative for abdominal pain and bowel incontinence. Endocrine: Negative. Genitourinary: Negative. Negative for bladder incontinence. Musculoskeletal: Positive for back pain. Skin: Negative. Allergic/Immunologic: Negative. Neurological: Positive for numbness (intermittently down bilateral thighs). Negative for tingling and weakness. Hematological: Negative. Psychiatric/Behavioral: Negative. Vital Signs: BP 123/89 (BP Site: Right Arm, BP Postition: Sitting) Pulse 85 Resp 18 Ht 172.7 cm (5' 8 ) Wt 88.8 kg (195 lb 12.8 oz) SpO2 98% BMI 29.77 kg/m Physical Exam: GENERAL - Healthy patient [...] during discussion, demonstrated appropriate cognitive reasoning and understanding of the medical condition by asking appropriate questions [...] spine and paraspinal musculature. Pain is elicited with flexion, extension, and lateral rotation of the lumbar [...] is negative. Gait is normal. Assessment/Treatment Plan: Diagnoses and all orders for this visit: Lumbosacral spondylosis without myelopathy Continue Gabapentin 800 mg TID and Doclofenac 75 mg BID Monitor Follow up 2-3 months The medications I have prescribed have been reviewed for medication interactions/contraindications and/or for upcoming procedures: continue current medication regimen without any changes. DISCUSSION: Treatment options discussed with patient and all questions answered to patient's satisfaction The patient has been instructed as to the type of medication prescribed along with directions for use. Potential side effects have [...] reviewed, discussed and appropriate for medications prescribed. It does appear that the patient benefited from the previous injection and the benefit has continued through this visit. At this time, we will monitor the patient s symptoms from an interventional standpoint and consider another injection in the future if the patient s symptoms return or intensify severely. The patient was made aware that they should call if symptoms worsen or if their pain begins to have a negative impact on their quality of life and activities of daily living again. The spine model was demonstrated and MRI [...] both accurate and complete. Kathy Ziegler CNA 06/27/24 0730 CHIQUITA Wong 07/06/24 1218 documented in this encounter [facility] 06-07-2024 Miscellaneous Notes Last OV: RFA 05/12 Next OV: 06/27 OARRS appropriate: yes Last UDS: na Pharmacy: [facility] documented in this encounter [facility] 06-07-2024 Telephone encounter Note Last OV: RFA 05/12 Next OV: 06/27 OARRS appropriate: yes Last UDS: na Pharmacy: [facility] 04-13-2024 History of Presen t illness Narrative [facility] [address] [place] [address] Patient: Celestino Ziegler Sex: male : 1970 Age: 53 y.o. PCP: ADITHYA HERRERA MD 04/13/2024 Celestino Ziegler is here for a(n) 6 week follow up. He reports his SI joint pain has been increasing. Chief Complaint Patient presents with Back Pain [...] bilateral sacroiliac joint injections with 0% relief 1/20/23 Daniel SI Inj w/80% relief continued 01/15/2023 bilateral sacroiliac injections with 90% relief x 2 days. Pain continues to be 80% better post procedure . 03/19/2023 bilateral sacroiliac joint injections with 50% relief of groin pain. His worst pain now is higher on the right 04/16/2023 Right L1/2 NRI with 0 relief 06/04/2023 bilateral sacroiliac injection with 75% relief 02/04/2024 bilateral sacroiliac joint with 80-90% relief x 2 days and 60-70% continued relief. 100% relief of groin pain October 2023 Patient had laminectomy with Dr Olsen. Patient completed Aquatic Therapy 6-8 sessions. Last session 01-14-2024 and they discharged him due to being no help. Patient states he plans on open swimming at the pool. Back Pain This is a chronic problem. The current episode started more than 1 year ago (childhood onset). The problem occurs constantly. The problem has been gradually worsening since onset. The pain is present in the lumbar spine, sacro-iliac and gluteal. The quality of the pain is described as aching (jabbing). The pain radiates to the right thigh and left thigh (aches to anterior aspect of thighs). The pain is at a severity of 4/10 (up to 8-9/10). The pain is moderate (to severe). The pain is Worse during the day (varies based on the amount of activity). The symptoms are aggravated by bending, twisting, sitting, position and standing (heavy lifting, walking, stairs, standing, twisting and bending ). Stiffness is present: n/a. Associated symptoms include leg pain (anterior bilateral thighs) and numbness (intemittently to RLE). Pertinent negatives include no bladder incontinence, bowel incontinence, chest pain, fever, tingling or weakness. Risk factors include poor posture and obesity. He has tried home exercises (DR cid/CHARLEY, NSAID (naproxen, diclofenac), Gabapentin,rest, ice/heat slight relief,) for the symptoms. The treatment provided moderate relief. The effect of pain on patient's ADLS: Moderate Impairment. Past Medical History: Diagnosis Date Alcoholism ([facility]) Anemia Asthma Back pain Chronic pain disorder Cough Environmental allergies Hypertension history of this, not currently treated Hypothyroidism Low back pain Neck pain Spinal stenosis of lumbar region with neurogenic claudication Visual impairment [place]cruzito Past Surgical History: Procedure Laterality Date ARTHROSCOPY REPAIR LESION SUPERIOR LABRUM EXTENDING FROM ANTERIOR TO POSTERIOR (SLAP) SHOULDER Left 06/07/2018 Performed by Jr Christian Estrada DO at [facility] ARTHROSCOPY REPAIR ROTATOR CUFF SHOULDER Left 06/07/2018 Performed by Jr Christian Estrada DO at [facility] ARTHROSCOPY SHOULDER Left 06/07/2018 Performed by Jr Christian Estrada DO at [facility] INJECTION BLOCK SACROILIAC JOINT Bilateral 02/04/2024 Performed by Dave Garcia MD at [facility] INJECTION BLOCK SACROILIAC JOINT Bilateral 06/04/2023 Performed by Dave Garcia MD at [facility] IN[facility]CTION BLOCK SACROILIAC JOINT Bilateral 03/19/2023 Performed by Dave Garcia MD at [facility] IN[facility] BLOCK SACROILIAC JOINT Bilateral 01/15/2023 Performed by Dave Garcia MD at [facility] IN[facility] BLOCK SACROILIAC JOINT Bilateral 09/04/2022 Performed by Dave Garcia MD at [facility] IN[facility] BLOCK SACROILIAC JOINT Right 05/22/2022 Performed by Dave Garcia MD at [facility] IN[facility] BLOCK SACROILIAC JOINT Bilateral 02/20/2022 Performed by Dave Garcia MD at [facility] BLOCK SACROILIAC JOINT Bilateral 10/20/2021 Performed by Dave Garcia MD at [facility] IN[facility] BLOCK SACROILIAC JOINT Bilateral 12/13/2020 Performed by Dave Garcia MD at [facility] INJECTION BURSA LARGE JOINT Right hip intra-articular Right 02/21/2021 Performed by Dave Garcia MD at [facility] INJECTION BURSA LARGE JOINT: right hip Right 03/27/2022 Performed by Dave Garcia MD at [facility] CAUDAL EPIDURAL WITH CATHETER, STEROID N/A 02/23/2020 Performed by Dave Garcia MD at [facility] CAUDAL EPIDURAL WITH CATHETER, STEROID N/A 01/15/2020 Performed by Dave Garcia MD at [facility] CAUDAL EPIDURAL WITH CATHETER, STEROID N/A 06/23/2019 Performed by Dave Garcia MD at [facility] CAUDAL EPIDURAL WITH CATHETER, STEROID N/A 05/05/2019 Performed by Dave Garcia MD at [facility] CAUDAL EPIDURAL WITH CATHETER, STEROID N/A 08/12/2018 Performed by Dave Garcia MD at [facility] CAUDAL EPIDURAL WITH CATHETER, STEROID 1 of 2 N/A 01/28/2018 Performed by Dave Garcia MD at [facility] CAUDAL EPIDURAL WITH CATHETER, STEROID 2 of 2 N/A 02/11/2018 Performed by Dave Garcia MD at [facility] SPINE TRANSFORAMINAL Left L 1,2 Nroot Left 01/24/2021 Performed by Dave Garcia MD at [facility] SPINE TRANSFORAMINAL: left L 1,2 nroot Left 04/17/2022 Performed by Dave Garcia MD at [facility] SPINE TRANSFORAMINAL: right L 1,2 nroot Right 04/16/2023 Performed by Dave Garcia MD at [facility] LAMINECTOMY LUMBAR SINGLE LEVEL / L1-L2 N/A 10/22/2023 Performed by Darrell Olsen MD at [facility] LUMBAR FUSION 2019 L2-S1 REFRACTIVE SURGERY Bilateral No Known Allergies Family History Problem Relation Age of Onset Heart disease Mother Diabetes Mother Back Problems Father Alcohol abuse Father Cirrhosis Father Anesthesia problems Neg Hx Social History Socioeconomic History Marital status: Spouse name: Not on file Number of children: Not on file Years of education: Not on file Highest education level: Not on file Occupational History Not on file Tobacco Use Smoking status: Never Smokeless tobacco: Former Types: Chew Quit date: 1996 Vaping Use Vaping status: Every Day Substances: THC, CBD Devices: Disposable Substance and Sexual Activity Alcohol use: Not Currently Comment: stopped 18 months ago Drug use: Yes Frequency: 7.0 times per week Types: Marijuana, Medical Marijuana Comment: daily use Sexual activity: Defer Other Topics Concern Not on file Social History Narrative Not on file Social Determinants of Health Financial Resource Strain: Not on file Food Insecurity: No Food Insecurity (02/22/2024) Hunger Screening Food Insecurity - Worry: Never True Food Insecurity - Inability: Never True Transportation Needs: No Transportation Needs (10/25/2023) PRAPARE - Transportation Lack of Transportation (Medical): No Lack of Transportation (Non-Medical): No Physical Activity: Not on file Stress: Not on file Social Connections: Not on file Interpersonal Safety: Not At Risk (10/25/2023) Humiliation, Afraid, Rape, and Kick questionnaire Fear of Current or Ex-Partner: No Emotionally Abused: No Physically Abused: No Sexually Abused: No Housing Instability: Low Risk (10/25/2023) Housing Instability Housing Instability: No Review of Systems Constitutional: Negative for fever. Cardiovascular: Negative for chest pain. Gastrointestinal: Negative for bowel incontinence. Genitourinary: Negative for bladder incontinence. Musculoskeletal: Positive for back pain. Neurological: Positive for numbness (intemittently to RLE). Negative for tingling and weakness. Vital Signs: BP 109/69 Pulse 91 Resp 14 Wt 87.5 kg (193 lb) SpO2 100% BMI 29.35 kg/m Physical Exam: GENERAL - Healthy patient [...] during discussion, demonstrated appropriate cognitive reasoning and understanding of the medical condition by asking appropriate questions [...] spine and paraspinal musculature. Pain is elicited with flexion, extension, and lateral rotation of the lumbar [...] dermatomal distributions. Straight Leg Raise is negative. Tenderness to palpation is noted over the Bilateral SacroIliac Joint: Fabere sign (Ilya's Test) is significantly positive, as is compression and distraction of the sacroiliac joints, which is consistent with some of the patient's normal pain. Gait is normal. Assessment/Treatment Plan: Celestino was seen today for back pain. Diagnoses and all orders for this visit: Disorder of sacrum - Case request operating room: RADIOFREQUENCY ABLATION SPINAL: right SI - Case request operating room: RADIOFREQUENCY ABLATION SPINAL: left SI Continue Gabapentin 800 mg TID and Diclofenac 75 mg BID Right then Left Sacroiliac Joint Radiofrequency Ablation - under fluoroscopy It is hopeful that the described procedure will provide symptomatic pain relief. It is felt to be medically necessary noting that the patient has tried and failed more conservative modalities of therapy and this is the next most appropriate step. The procedure was described in detail to the patient as well as the potential benefits of pain reduction alongside risks of the procedure and alternatives. Risks were described as including, but not limited to bleeding, infection, nerve damage, spinal cord injury, paralysis, stroke, dural puncture headache, and medication reaction. The patient expressed understanding regarding the risks and benefits and wishes to proceed. The patient has undergone diagnostic SI joint injections targeting the above mentioned joints. There was significant improvement in the patient s pain and functionality for the duration of the local anesthetic (approximately 2 hours) with return of the original symptoms after that time. For this reason, it is felt that the patient is a good candidate to undergo thermal Radio Frequency Lesioning of the dorsal sacral and cluneal nerves at 80 degrees celsius for 150 seconds. This will effectively denervate the arthritic SI joints previously targeted with the diagnostic injection. It is noted that the procedure often requires 3-4 weeks to provide benefit, but the benefit usually lasts for approximately 1 year and can then be repeated if necessary. Patients undergoing this procedure often have mild post-procedural pain for 3-4 days which is generally relieved with application of heat and over the counter pain relievers. Follow up 4 weeks after procedure The medications I have prescribed have been [...] as to the type of medication prescribed along with directions for use. Potential side effects have [...] reviewed, discussed and appropriate for medications prescribed. The spine model was demonstrated and MRI [...] both accurate and complete. Kathy Ziegler CNA 04/13/24 1456 CHIQUITA Wong 04/13/24 1509 documented in this encounter [facility] 04-13-2024 Instructions Kathy Ziegler CNA - 04/13/2024 2:15 PM EDT Radiofrequency Ablation (RFA) Radiofrequency ablation (or RFA) is a procedure used to reduce pain. An electrical current produced by a radio wave is used to heat up a small area of nerve tissue, thereby decreasing pain signals from that specific area. Which Conditions Are Treated With Radiofrequency Ablation? RFA can be used to help patients with chronic (long-lasting) back and neck pain and pain related to the degeneration of joints from arthritis. How Long Does Pain Relief from Radiofrequency Ablation Last? The degree of pain relief varies, depending on the cause and location of the pain. Pain relief from RFA can last from six to 12 months and in some cases, relief can last for years. More than 70% of patients treated with RFA experience pain relief. Is Radiofrequency Ablation Safe? RFA has proven to be a safe and effective way to treat some forms of pain. It also is generally well-tolerated, with very few associated complications. There is a slight risk of infection and bleeding at the insertion site. Your doctor can advise you about your particular risk. Can I Resume My Normal Activities After Radiofrequency Ablation? You will have a few restrictions immediately following radiofrequency ablation: Do not drive or operate machinery for at least 24 hours after the procedure. You may resume your normal diet and prescribed medications (including blood thinners) when you get home. Do not engage in any strenuous activity for the first 24 hours after the procedure. You may remove any bandages in the evening before going to bed. You may experience the following effects after RFA: Leg numbness: If you have any leg numbness, walk only with assistance. This should only last a few hours and is due to the local anesthesia given during the procedure. Mild back discomfort: This may occur when the local anesthetic wears off and usually lasts two or three days. Apply heat to the area the day of the procedure and the day after the procedure. You may also use your usual pain medications and NSAID medications such as ibuprofen, naproxen, Aleve, Motrin, etc. if you are able. Expectations: Results will be gradual. It may take 3-4 weeks for full relief. If you feel severe pain at the injection site with swelling and redness, increased leg weakness, a fever of 101 or higher, headache (or worsening headache), changes in vision or urinary retention: Please call the office at , or have someone take you to the nearest emergency room. Tell the emergency room staff that you just had RFA. A doctor must evaluate you for bleeding and injection complications. If you lose control over bowel, bladder, or legs: Go to the nearest emergency room. If you are diabetic, the steroids used in this procedure can increase your blood sugar. If your blood sugar is 250mg/dL or higher, contact your primary care physician, or the doctor who manages your diabetes, to discuss how to get it back to normal. documented in this encounter [facility] 04-04-2024 Miscellaneous Notes Last Office Visit: 02/22/24 Next Office Visit: 04/13/2024 Last Urine Drug Screen: No results found for: BENZOSCRN OARRS appropriate documented in this encounter [facility] 04-04-2024 Telephone encounter Note Last Office Visit: 02/22/24 Next Office Visit: 04/13/2024 Last Urine Drug Screen: No results found for: BENZOSCRN OARRS appropriate [facility] 02-22-2024 History of Presen t illness Narrative [facility] [address] [place] [address] Patient: Celestino Ziegler Sex: male : 1970 Age: 53 y.o. PCP: ADITHYA HERRERA MD 02/22/2024 Celestino Ziegler is here for a(n) post procedure follow up 02/04/2024 bilateral sacroiliac joint with 8090% relief x 2 days. 70% percent relief continues. . Date of onset of pain: 2016 , pain has lasted greater than 3 months. Pain scale before treatment: 7/10 Pre-op pain score: 7/10 Post-op pain score: 7/10 2 hour post-op pain score: 4/10 4 hour post-op pain score: 2/10 Percentage of relief after and duration: 70% relief x 2 days with 40% that continues Pain scale after treatment: 10/23 Chief Complaint Patient presents with Back Pain [...] of groin pain. His worst pain now is higher on the right 04/16/2023 Right L1/2 NRI with 0 relief 06/04/2023 bilateral sacroiliac injection with 75% relief 02/04/2024 bilateral sacroiliac joint with 80-90% relief x 2 days and 60-70% continued relief. 100% relief of groin pain October 2023 Patient had laminectomy with Dr Olsen. Patient completed Aquatic Therapy 6-8 sessions. Last session 01-14-2024 and they discharged him due to being no help. Patient states he plans on open swimming at the pool. Back Pain This is a chronic problem. The current episode started more than 1 year ago (childhood onset). The problem occurs constantly. The problem has been gradually improving since onset. The pain is present in the lumbar spine, sacro-iliac and gluteal. The quality of the pain is described as aching (jabbing). The pain radiates to the right thigh and left thigh (intermittent pain. No groin pain). The pain is at a severity of 4/10. The pain is moderate. The pain is Worse during the day (varies). The symptoms are aggravated by bending, twisting, sitting, position and standing (heavy lifting, walking, stairs, standing, twisting and bending ). Stiffness is present: n/a. Associated symptoms include leg pain (anterior bilateral thighs). Pertinent negatives include no bladder incontinence, bowel incontinence, chest pain, fever, numbness, tingling or weakness. Risk factors include poor posture and obesity. He has tried home exercises (DR cid/CHARLEY, NSAID (naproxen, diclofenac), Gabapentin,rest, ice/heat slight relief,) for the symptoms. The treatment provided moderate relief. The effect of pain on patient's ADLS: Moderate Impairment. Past Medical History: Diagnosis Date Alcoholism (CMS-HCC) Anemia Asthma Back pain Chronic pain disorder Cough Environmental allergies Hypertension history of this, not currently treated Hypothyroidism Low back pain Neck pain Spinal stenosis of lumbar region with neurogenic claudication Visual impairment lasik Past Surgical History: Procedure Laterality Date ARTHROSCOPY REPAIR LESION SUPERIOR LABRUM EXTENDING FROM ANTERIOR TO POSTERIOR (SLAP) SHOULDER Left 06/07/2018 Performed by Jr Christian Estrada DO at [facility] ARTHROSCOPY REPAIR ROTATOR CUFF SHOULDER Left 06/07/2018 Performed by Jr Christian Estrada DO at [facility] ARTHROSCOPY SHOULDER Left 06/07/2018 Performed by Jr Christian Estrada DO at [facility] INJECTION BLOCK SACROILIAC JOINT Bilateral 02/04/2024 Performed by Dave Garcia MD at [facility] INJECTION BLOCK SACROILIAC JOINT Bilateral 06/04/2023 Performed by Dave Garcia MD at [facility] BLOCK SACROILIAC JOINT Bilateral 03/19/2023 Performed by Dave Garcia MD at [facility] BLOCK SACROILIAC JOINT Bilateral 01/15/2023 Performed by Dave Garcia MD at [facility] BLOCK SACROILIAC JOINT Bilateral 09/04/2022 Performed by Dave Garcia MD at [facility] BLOCK SACROILIAC JOINT Right 05/22/2022 Performed by Dave Garcia MD at [facility] BLOCK SACROILIAC JOINT Bilateral 02/20/2022 Performed by Dave Garcia MD at [facility] BLOCK SACROILIAC JOINT Bilateral 10/20/2021 Performed by Dave Garcia MD at [facility] BLOCK SACROILIAC JOINT Bilateral 12/13/2020 Performed by Dave Garcia MD at [facility] INJECTION BURSA LARGE JOINT Right hip intra-articular Right 02/21/2021 Performed by Dave Garcia MD at [facility] INJECTION BURSA LARGE JOINT: right hip Right 03/27/2022 Performed by Dave Garcia MD at [facility] IN[facility] CAUDAL EPIDURAL WITH CATHETER, STEROID N/A 02/23/2020 Performed by Dave Garcia MD at [facility] CAUDAL EPIDURAL WITH CATHETER, STEROID N/A 01/15/2020 Performed by Dave Garcia MD at [facility] CAUDAL EPIDURAL WITH CATHETER, STEROID N/A 06/23/2019 Performed by Dave Garcia MD at [facility] IN[facility] CAUDAL EPIDURAL WITH CATHETER, STEROID N/A 05/05/2019 Performed by Dave Garcia MD at [facility] IN[facility] CAUDAL EPIDURAL WITH CATHETER, STEROID N/A 08/12/2018 Performed by Dave Garcia MD at [facility] IN[facility] CAUDAL EPIDURAL WITH CATHETER, STEROID 1 of 2 N/A 01/28/2018 Performed by Dave Garcia MD at [facility] IN[facility]CTION CAUDAL EPIDURAL WITH CATHETER, STEROID 2 of 2 N/A 02/11/2018 Performed by Dave Garcia MD at [facility] SPINE TRANSFORAMINAL Left L 1,2 Nroot Left 01/24/2021 Performed by Dave Garcia MD at [facility] SPINE TRANSFORAMINAL: left L 1,2 nroot Left 04/17/2022 Performed by Dave Garcia MD at [facility] SPINE TRANSFORAMINAL: right L 1,2 nroot Right 04/16/2023 Performed by Dave Garcia MD at [facility] LAMINECTOMY LUMBAR SINGLE LEVEL / L1-L2 N/A 10/22/2023 Performed by Darrell Olsen MD at [facility] LUMBAR FUSION 2019 L2-S1 REFRACTIVE SURGERY Bilateral No Known Allergies Family History Problem Relation Age of Onset Heart disease Mother Diabetes Mother Back Problems Father Alcohol abuse Father Cirrhosis Father Anesthesia problems Neg Hx Social History Socioeconomic History Marital status: Spouse name: Not on file Number of children: Not on file Years of education: Not on file Highest education level: Not on file Occupational History Not on file Tobacco Use Smoking status: Never Smokeless tobacco: Former Types: Chew Quit date: 1996 Vaping Use Vaping status: Every Day Substances: THC, CBD Devices: Disposable Substance and Sexual Activity Alcohol use: Not Currently Comment: stopped 18 months ago Drug use: Yes Frequency: 7.0 times per week Types: Marijuana, Medical Marijuana Comment: daily use Sexual activity: Defer Other Topics Concern Not on file Social History Narrative Not on file Social Determinants of Health Financial Resource Strain: Not on file Food Insecurity: No Food Insecurity (02/22/2024) Hunger Screening Food Insecurity - Worry: Never True Food Insecurity - Inability: Never True Transportation Needs: No Transportation Needs (10/25/2023) PRAPARE - Transportation Lack of Transportation (Medical): No Lack of Transportation (Non-Medical): No Physical Activity: Not on file Stress: Not on file Social Connections: Not on file Interpersonal Safety: Not At Risk (10/25/2023) Humiliation, Afraid, Rape, and Kick questionnaire Fear of Current or Ex-Partner: No Emotionally Abused: No Physically Abused: No Sexually Abused: No Housing Instability: Low Risk (10/25/2023) Housing Instability Housing Instability: No Review of Systems Constitutional: Negative for fever. HENT: Negative. Respiratory: Negative. Cardiovascular: Negative for chest pain. Gastrointestinal: Negative. Negative for bowel incontinence. Genitourinary: Negative. Negative for bladder incontinence. Musculoskeletal: Positive for back pain. Skin: Negative. Neurological: Negative for tingling, weakness and numbness. Psychiatric/Behavioral: Negative. Vital Signs: BP 109/83 Pulse 109 Resp 16 Wt 85.7 kg (189 lb) SpO2 97% BMI 28.74 kg/m Physical Exam: GENERAL - Healthy patient [...] during discussion, demonstrated appropriate cognitive reasoning and understanding of the medical condition by asking appropriate questions [...] spine and paraspinal musculature. Pain is elicited with flexion, extension, and lateral rotation of the lumbar [...] Diagnoses and all orders for this visit: Disorder of sacrum Lumbosacral spondylosis without myelopathy Continue Gabapentin 800 mg TID Monitor Follow up DISCUSSION: Treatment options discussed with patient and all questions answered to patient's satisfaction. Discussed the rules and regulations surrounding prescription of opioids and compliance at length. Failure to follow the rules and regulation will result in tapering and discontinuation of medications if applicable. The patient has been instructed as to the type of medication prescribed along with directions for use. Potential side effects have [...] requires intensive monitoring for toxicity Gabapentin. OARRS and most recent UDS were reviewed, discussed and appropriate for medications prescribed. Treatment plans discussed but not opted for at this time: SI RFA. Pain is under adequate control. It does appear that the patient benefited from the previous injection and the benefit has continued through this visit. At this time, we will monitor the patient s symptoms from an interventional standpoint and consider another injection in the future if the patient s symptoms return or intensify severely. The patient was made aware that they should call if symptoms worsen or if their pain begins to have a negative impact on their quality of life and activities of daily living again. The spine model was demonstrated and MRI [...] both accurate and complete. Kathy Ziegler CNA 02/22/24 1536 CHIQUITA Wong 02/24/24 0917 documented in this encounter [facility] 02-10-2024 History of Presen t illness Narrative Images from the original note were not included. [facility] [address] [place] [address], [address] [place] [address] * CHART NOTE ? 02/10/2024 Patient: Celestino Ziegler 1970 [id number] Nurse Practitioner: Charles Tim CARE CLINICIAN Physician: Darrell Olsen MD, FAANS IMPRESSION / PLAN 53 y.o. male presents to the clinic as a follow up S/P L1-2 laminectomy performed on 10-22-2023. Celestino reports significant relief after recent aquatic therapy and bilateral SI joint injections. He will continue with Pain Management and follow up as needed. HISTORY OF PRESENT ILLNESS 53 y.o. male presents to the clinic as a follow up S/P L1-2 laminectomy performed on 10-22-2023. Celestino reports he completed aquatic therapy, and had bilateral SI joint injections with Dr. Garcia on Wednesday, and had significant improvement. He is scheduled for a follow up with Pain Management and then a possible RFA. He continues to have intermittent pain and tingling into the BLE. 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 Patient does not use an assistive device for ambulation. Patient is not diabetic and not a smoker. Hx of L2-S1 fusion with Dr. Cadet in 2019. PAST MEDICAL HISTORY Past Medical History: Diagnosis Date Alcoholism ([facility]) Anemia Asthma Back pain Chronic pain disorder Cough Environmental allergies Hypertension history of this, not currently treated Hypothyroidism Low back pain Neck pain Spinal stenosis of lumbar region with neurogenic claudication Visual impairment lasik PAST SURGICAL HISTORY Past Surgical History: Procedure Laterality Date ARTHROSCOPY REPAIR LESION SUPERIOR LABRUM EXTENDING FROM ANTERIOR TO POSTERIOR (SLAP) SHOULDER Left 06/07/2018 Performed by Jr Christian Estrada DO at [facility] ARTHROSCOPY REPAIR ROTATOR CUFF SHOULDER Left 06/07/2018 Performed by Jr Christian Estrada DO at [facility] ARTHROSCOPY SHOULDER Left 06/07/2018 Performed by Jr Christian Estrada DO at [facility] INJECTION BLOCK SACROILIAC JOINT Bilateral 02/04/2024 Performed by Dave Garcia MD at [facility] IN[facility] BLOCK SACROILIAC JOINT Bilateral 06/04/2023 Performed by Dave Garcia MD at [facility] IN[facility] BLOCK SACROILIAC JOINT Bilateral 03/19/2023 Performed by Dave Garcia MD at [facility] BLOCK SACROILIAC JOINT Bilateral 01/15/2023 Performed by Dave Garcia MD at [facility] BLOCK SACROILIAC JOINT Bilateral 09/04/2022 Performed by Dave Garcia MD at [facility] BLOCK SACROILIAC JOINT Right 05/22/2022 Performed by Dave Garcia MD at [facility] BLOCK SACROILIAC JOINT Bilateral 02/20/2022 Performed by Dave Garcia MD at [facility] BLOCK SACROILIAC JOINT Bilateral 10/20/2021 Performed by Dave Garcia MD at [facility] IN[facility] BLOCK SACROILIAC JOINT Bilateral 12/13/2020 Performed by Dave Garcia MD at [facility] IN[facility]CTION BURSA LARGE JOINT Right hip intra-articular Right 02/21/2021 Performed by Dave Garcia MD at [facility] INJECTION BURSA LARGE JOINT: right hip Right 03/27/2022 Performed by Dave Garcia MD at [facility] CAUDAL EPIDURAL WITH CATHETER, STEROID N/A 02/23/2020 Performed by Dave Garcia MD at [facility] CAUDAL EPIDURAL WITH CATHETER, STEROID N/A 01/15/2020 Performed by Dave Garcia MD at [facility] CAUDAL EPIDURAL WITH CATHETER, STEROID N/A 06/23/2019 Performed by Dave Garcia MD at [facility] IN[facility] CAUDAL EPIDURAL WITH CATHETER, STEROID N/A 05/05/2019 Performed by Dave Garcia MD at [facility] IN[facility] CAUDAL EPIDURAL WITH CATHETER, STEROID N/A 08/12/2018 Performed by Dave Garcia MD at [facility] INJECTION CAUDAL EPIDURAL WITH CATHETER, STEROID 1 of 2 N/A 01/28/2018 Performed by Dave Garcia MD at [facility] INJECTION CAUDAL EPIDURAL WITH CATHETER, STEROID 2 of 2 N/A 02/11/2018 Performed by Dave Garcia MD at [facility] SPINE TRANSFORAMINAL Left L 1,2 Nroot Left 01/24/2021 Performed by Dave Garcia MD at [facility] SPINE TRANSFORAMINAL: left L 1,2 nroot Left 04/17/2022 Performed by Dave Garcia MD at [facility] SPINE TRANSFORAMINAL: right L 1,2 nroot Right 04/16/2023 Performed by Dave Garcia MD at [facility] LAMINECTOMY LUMBAR SINGLE LEVEL / L1-L2 N/A 10/22/2023 Performed by Darrell Olsen MD at [facility] LUMBAR FUSION 2020 L2-S1 REFRACTIVE SURGERY Bilateral SOCIAL HISTORY Social History Socioeconomic History Marital status: Spouse name: Not on file Number of children: Not on file Years of education: Not on file Highest education level: Not on file Occupational History Not on file Tobacco Use Smoking status: Never Smokeless tobacco: Former Types: Chew Quit date: 1996 Vaping Use Vaping status: Every Day Substances: THC, CBD Devices: Disposable Substance and Sexual Activity Alcohol use: Not Currently Comment: stopped 18 months ago Drug use: Yes Frequency: 7.0 times per week Types: Marijuana, Medical Marijuana Comment: daily use Sexual activity: Defer Other Topics Concern Not on file Social History Narrative Not on file Social Determinants of Health Financial Resource Strain: Not on file Food Insecurity: No Food Insecurity (01/20/2024) Hunger Screening Food Insecurity - Worry: Never True Food Insecurity - Inability: Never True Transportation Needs: No Transportation Needs (10/25/2023) PRAPARE - Transportation Lack of Transportation (Medical): No Lack of Transportation (Non-Medical): No Physical Activity: Not on file Stress: Not on file Social Connections: Not on file Interpersonal Safety: Not At Risk (10/25/2023) Humiliation, Afraid, Rape, and Kick questionnaire Fear of Current or Ex-Partner: No Emotionally Abused: No Physically Abused: No Sexually Abused: No Housing Instability: Low Risk (10/25/2023) Housing Instability Housing Instability: No REVIEW OF SYSTEMS ROS Positive Findings: Negative otherwise noted in the HPI PHYSICAL EXAMINATION Alert Oriented No percussion tenderness along spine ROM of the low back is slightly decreased No weakness No pathological reflexes No atrophy No fasciculations Sensation to light touch is normal in butt dermatomes Gait is within normal limits JENNIE is positive bilaterally SLR is negative MRI / IMAGES MR lumbar 10-23-2023 IMPRESSION: * Extensive postsurgical changes with artifact [...] * Mild retrolisthesis of L1 on L2. I reviewed the imaging studies independently and critical findings were anotated for the patient. Electronically Signed By: Charles Tim CNP This note was created with the assistance of a speech recognition program with the goal of generating a timely record of the patient encounter. Inadvertent computerized property site manager errors related to syntax, spelling, homophones, and/or inaudibility may be present. DI Cha 02/10/24 1224 documented in this encounter [facility] 02-10-2024 Instructions Denise Gracia - 02/10/2024 10:30 AM EDT Patient seen today by Astrid Patient to follow up PRN KM documented in this encounter [facility] 02-03-2024 Note Chief Complaint consultation for anemia HPI [...] (less than 10 (more content not included)... [facility] Comment on above: Result Comment: Elec tronically Signed By: ROSENDO OROURKE, Michel Sue\Date and Time Signed: 02/03/24 15:00 EDT 01-20-2024 History of Presen t illness Narrative [facility] [address] [place] [address] Patient: Celestino Ziegler Sex: male : 1970 Age: 53 y.o. PCP: ADITHYA HERRERA MD 01/20/2024 Celestino Ziegler is here for a(n) follow up after referral to [facility] for Neurosurgery and patient had a laminectomy in October 2023 . He now has pain in his bilateral SI joints. Chief Complaint Patient presents with Back Pain [...] of groin pain. His worst pain now is higher on the right 04/16/2023 Right L1/2 NRI with 0 relief 06/04/2023 bilateral sacroiliac injection with 75% relief October 2023 Patient had laminectomy with Dr Olsen. Patient completed Aquatic Therapy 6-8 sessions. Last session 01-14-2024 and they discharged him due to being no help. Patient states he plans on open swimming at the pool. Back Pain This is a chronic problem. The current episode started more than 1 year ago (childhood onset). The problem occurs constantly. The problem has been gradually worsening since onset. The pain is present in the lumbar spine, sacro-iliac and gluteal. The quality of the pain is described as stabbing, shooting and aching (jabbing). The pain radiates to the right thigh and left thigh (bilateral hips down anterior thighs and bilateral groin). The pain is at a severity of 7/10 (3/10 now but does increase to 9.5/10 with activity). The pain is moderate. The pain is Worse during the day (varies). The symptoms are aggravated by bending, twisting, sitting, position and standing (heavy lifting, walking, stairs, standing, twisting and bending ). Stiffness is present: n/a. Associated symptoms include leg pain (anterior bilateral thighs). Pertinent negatives include no bladder incontinence, bowel incontinence, chest pain, fever, numbness, tingling or weakness. (Left lumbar area with pinching/shooting; Instant pain in bilateral hips shooting down BLE when laying down in bed) Risk factors include poor posture and obesity. He has tried home exercises (DR cid/CHARLEY, NSAID (naproxen, diclofenac), Gabapentin,rest, ice/heat slight relief,) for the symptoms. The treatment provided moderate relief. The effect of pain on patient's ADLS: Moderate Impairment. Past Medical History: Diagnosis Date Alcoholism ([facility]) Anemia Asthma Back pain Chronic pain disorder Cough Environmental allergies Hypertension history of this, not currently treated Hypothyroidism Low back pain Neck pain Spinal stenosis of lumbar region with neurogenic claudication Visual impairment lasik Past Surgical History: Procedure Laterality Date ARTHROSCOPY REPAIR LESION SUPERIOR LABRUM EXTENDING FROM ANTERIOR TO POSTERIOR (SLAP) SHOULDER Left 06/07/2018 Performed by Jr Christian Estrada DO at [facility] ARTHROSCOPY REPAIR ROTATOR CUFF SHOULDER Left 06/07/2018 Performed by Jr Christian Estrada DO at [facility] ARTHROSCOPY SHOULDER Left 06/07/2018 Performed by Jr Christian Estrada DO at [facility] INJECTION BLOCK SACROILIAC JOINT Bilateral 06/04/2023 Performed by Dave Garcia MD at [facility] BLOCK SACROILIAC JOINT Bilateral 03/19/2023 Performed by Dave Garcia MD at [facility] BLOCK SACROILIAC JOINT Bilateral 01/15/2023 Performed by Dave Garcia MD at [facility] BLOCK SACROILIAC JOINT Bilateral 09/04/2022 Performed by Dave Garcia MD at [facility] BLOCK SACROILIAC JOINT Right 05/22/2022 Performed by Dave Garcia MD at [facility] BLOCK SACROILIAC JOINT Bilateral 02/20/2022 Performed by Dave Garcia MD at [facility] BLOCK SACROILIAC JOINT Bilateral 10/20/2021 Performed by Dave Garcia MD at [facility] BLOCK SACROILIAC JOINT Bilateral 12/13/2020 Performed by Dave Garcia MD at [facility] INJECTION BURSA LARGE JOINT Right hip intra-articular Right 02/21/2021 Performed by Dave Garcia MD at [facility] INJECTION BURSA LARGE JOINT: right hip Right 03/27/2022 Performed by Dave Garcia MD at [facility] CAUDAL EPIDURAL WITH CATHETER, STEROID N/A 02/23/2020 Performed by Dave Garcia MD at [facility] CAUDAL EPIDURAL WITH CATHETER, STEROID N/A 01/15/2020 Performed by Dave Garcia MD at [facility] CAUDAL EPIDURAL WITH CATHETER, STEROID N/A 06/23/2019 Performed by Dave Garcia MD at [facility] CAUDAL EPIDURAL WITH CATHETER, STEROID N/A 05/05/2019 Performed by Dave Garcia MD at [facility] CAUDAL EPIDURAL WITH CATHETER, STEROID N/A 08/12/2018 Performed by Dave Garcia MD at [facility] CAUDAL EPIDURAL WITH CATHETER, STEROID 1 of 2 N/A 01/28/2018 Performed by Dave Garcia MD at [facility] INJECTION CAUDAL EPIDURAL WITH CATHETER, STEROID 2 of 2 N/A 02/11/2018 Performed by Dave Garcia MD at [facility] SPINE TRANSFORAMINAL Left L 1,2 Nroot Left 01/24/2021 Performed by Dave Garcia MD at [facility] SPINE TRANSFORAMINAL: left L 1,2 nroot Left 04/17/2022 Performed by Daev Garcia MD at [facility] SPINE TRANSFORAMINAL: right L 1,2 nroot Right 04/16/2023 Performed by Dave Garcia MD at [facility] LAMINECTOMY LUMBAR SINGLE LEVEL / L1-L2 N/A 10/22/2023 Performed by Darrell Olsen MD at [facility] LUMBAR FUSION 2019 L2-S1 REFRACTIVE SURGERY Bilateral No Known Allergies Family History Problem Relation Age of Onset Heart disease Mother Diabetes Mother Back Problems Father Alcohol abuse Father Cirrhosis Father Anesthesia problems Neg Hx Social History Socioeconomic History Marital status: Spouse name: Not on file Number of children: Not on file Years of education: Not on file Highest education level: Not on file Occupational History Not on file Tobacco Use Smoking status: Never Smokeless tobacco: Former Types: Chew Quit date: 1996 Vaping Use Vaping status: Every Day Substances: THC, CBD Devices: Disposable Substance and Sexual Activity Alcohol use: Not Currently Comment: stopped 18 months ago Drug use: Yes Frequency: 7.0 times per week Types: Marijuana, Medical Marijuana Comment: daily use Sexual activity: Defer Other Topics Concern Not on file Social History Narrative Not on file Social Determinants of Health Financial Resource Strain: Not on file Food Insecurity: No Food Insecurity (01/20/2024) Hunger Screening Food Insecurity - Worry: Never True Food Insecurity - Inability: Never True Transportation Needs: No Transportation Needs (10/25/2023) PRAPARE - Transportation Lack of Transportation (Medical): No Lack of Transportation (Non-Medical): No Physical Activity: Not on file Stress: Not on file Social Connections: Not on file Interpersonal Safety: Not At Risk (10/25/2023) Humiliation, Afraid, Rape, and Kick questionnaire Fear of Current or Ex-Partner: No Emotionally Abused: No Physically Abused: No Sexually Abused: No Housing Instability: Low Risk (10/25/2023) Housing Instability Housing Instability: No Review of Systems Constitutional: Negative. Negative for fever. HENT: Negative. Eyes: Negative. Respiratory: Negative. Cardiovascular: Negative for chest pain. Gastrointestinal: Negative. Negative for bowel incontinence. Genitourinary: Negative. Negative for bladder incontinence. Musculoskeletal: Positive for back pain. Skin: Negative. Neurological: Negative for tingling, weakness and numbness. Vital Signs: BP 132/80 (BP Site: Right Arm, BP Postition: Sitting) Pulse 85 Resp 18 Ht 172.7 cm (5' 8 ) Wt 90.7 kg (200 lb) SpO2 97% BMI 30.41 kg/m Physical Exam: GENERAL - Healthy patient [...] during discussion, demonstrated appropriate cognitive reasoning and understanding of the medical condition by asking appropriate questions [...] spine and paraspinal musculature. Pain is elicited with flexion, extension, and lateral rotation of the lumbar [...] dermatomal distributions. Straight Leg Raise is negative. Tenderness to palpation is noted over the Bilateral SacroIliac Joint: Fabere sign (Ilya's Test) is significantly positive, as is compression and distraction of the sacroiliac joints, which is consistent with some of the patient's normal pain. Gait is normal. Assessment/Treatment Plan: Celestino was seen today for back pain. Diagnoses and all orders for this visit: Disorder of sacrum - Case request operating room: INJECTION BLOCK SACROILIAC JOINT Continue Gabapentin 800 mg TID Bilateral Sacroiliac Joint Injection - under fluoroscopy with the use of contrast dye (unless contraindicated) It is hopeful that the described procedure will provide symptomatic pain relief. It is felt to be medically necessary noting that the patient has tried and failed more conservative modalities of therapy and this is the next most appropriate step. The procedure was described in detail to the patient as well as the potential benefits of pain reduction alongside risks of the procedure and alternatives. Risks were described as including, but not limited to bleeding, infection, nerve damage, spinal cord injury, paralysis, stroke, dural puncture headache, and medication reaction. The patient expressed understanding regarding the risks and benefits and wishes to proceed. 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 If this provides significant but only temporary pain relief, the patient may in the future be a candidate for radiofrequency denervation of the SI joint to provide pain relief for approximately 1 year. Follow up 2 weeks after procedure The medications I have prescribed have been [...] as to the type of medication prescribed along with directions for use. Potential side effects have [...] reviewed, discussed and appropriate for medications prescribed. Gabapentin was refilled at today's office visit. Treatment plans discussed but not opted for at this time: SI RFA. Patient would like to proceed with the [...] both accurate and complete. Kathy Ziegler CNA 01/20/24 1020 Kathy Ziegler CNA 01/20/24 1042 Kathy Ziegler CNA 01/20/24 1102 Kathy Ziegler CNA 01/20/24 1110 CHIQUITA Wong 01/20/24 1453 documented in this encounter [facility] 01-20-2024 Instructions Kathy Ziegler CNA - 01/20/2024 9:45 AM EDT Facet Injection / Medial Branch Block (MBB) / Sacroiliac (SI) Joint Injection A facet injection and sacroiliac joint injection are injections of local anesthetic and steroid into a joint in the spine. A medial branch block is similar, but the medication is placed outside the joint space near the nerve that supplies the joint called the medial branch (steroid may or may not be used). You may require multiple injections depending upon how many joints are involved. How Long Will This Procedure Last? The extent and duration of pain relief may depend on the amount of inflammation and how many areas are involved. Other coexisting factors may be responsible for your pain. If your pain goes away for a short time, but then returns, you may be a candidate for radiofrequency ablation (RFA). Activity Be active. Attempt activities and movements that typically cause pain to see if it feels better while doing them. We will give you a pain diary. Please fill this out as directed by your nurse in pre-op. This will help your doctor determine the effectiveness of the injection, and how to proceed. Bring the pain diary with you to your follow-up appointment. Medications You should not take your pain medications for 4-6 hours before or after the injection in order to properly diagnose if the injection provides adequate relief. Resume your routine medications after your procedure. You may resume blood thinners per your regular schedule after the procedure. If you received sedation: If you received sedation for your procedure, you may feel sleepy or not yourself for several hours today. For the next 24 hours avoid activities that requires alertness or coordination. This includes: Driving or operating heavy machinery Using power tools Consuming alcohol Do not make important or complex decisions or sign legal documents in the next 24 hours. Other Instructions: If you feel severe pain at the injection site with swelling and redness, increased leg weakness, a fever of 101 or higher, headache (or worsening headache), changes in vision or urinary retention: Please call the office at , or have someone take you to the nearest emergency room. Tell the emergency room staff that you recently had a spine injection. A doctor must evaluate you for bleeding and injection complications. If you lose control over bowel, bladder, or legs: Go to the nearest emergency room. documented in this encounter [facility] 12-20-2023 Miscellaneous Notes Celestino calls stating that he is having increased pain on the right side and around the waist, more so at night. He states the pain goes down both legs. He states that he has not been doing anything that precipitated this pain, other than walking. Advised to use ice until able to discuss with the provider for further direction. If he is able to take steroids, I could send an medrol chanell to try. If no relief from that, he may need to follow up sooner than his February appointment. Please let me know if he would like me to send the steroid chanell. Call to Celestino and MAHSA to call office. documented in this encounter [facility] 12-20-2023 Telephone encounter Note Celestino calls stating that he is having increased pain on the right side and around the waist, more so at night. He states the pain goes down both legs. He states that he has not been doing anything that precipitated this pain, other than walking. Advised to use ice until able to discuss with the provider for further direction. [facility] 12-20-2023 Telephone encounter Note If he is able to take steroids, I could send an medrol chanell to try. If no relief from that, he may need to follow up sooner than his February appointment. Please let me know if he would like me to send the steroid chanell. [facility] 12-20-2023 Telephone encounter Note Call to Marie to call office. [facility] 12-02-2023 History of Presen t illness Narrative Images from the original note were not included. [facility] [address] [place] [address], [address] [place] [address] * CHART NOTE ? 12/02/2023 Patient: Celestino Ziegler 1970 [id number] Nurse Practitioner: Charles Tim CARE CLINICIAN Physician: Darrell Olsen MD, FAANS IMPRESSION / PLAN 53 y.o. male HISTORY OF PRESENT ILLNESS 53 y.o. male presents to the clinic as a post-op patient S/P S/P L1-2 laminectomy performed on 10-22-2023. Ceelstino reports he is no longer having the right low back and RLE pain but, approximately two weeks ago, he began having some pain the left low back that is exacerbated with walking and twisting. 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 Patient does not use an assistive device for ambulation. Patient is not diabetic and not a smoker. Hx of L2-S1 fusion with Dr. Cadet in 2019. PAST MEDICAL HISTORY Past Medical History: Diagnosis Date Alcoholism ([facility]) Anemia Asthma Back pain Chronic pain disorder Cough Environmental allergies Hypertension history of this, not currently treated Hypothyroidism Low back pain Neck pain Spinal stenosis of lumbar region with neurogenic claudication Visual impairment lasik PAST SURGICAL HISTORY Past Surgical History: Procedure Laterality Date ARTHROSCOPY REPAIR LESION SUPERIOR LABRUM EXTENDING FROM ANTERIOR TO POSTERIOR (SLAP) SHOULDER Left 06/07/2018 Performed by Jr Christian Estrada DO at [facility] ARTHROSCOPY REPAIR ROTATOR CUFF SHOULDER Left 06/07/2018 Performed by Jr Christian Estrada DO at [facility] ARTHROSCOPY SHOULDER Left 06/07/2018 Performed by Jr Christian Estrada DO at [facility] INJECTION BLOCK SACROILIAC JOINT Bilateral 06/04/2023 Performed by Dave Garcia MD at [facility] IN[facility]CTION BLOCK SACROILIAC JOINT Bilateral 03/19/2023 Performed by Dave Garcia MD at [facility] IN[facility]CTION BLOCK SACROILIAC JOINT Bilateral 01/15/2023 Performed by Dave Garcia MD at [facility] BLOCK SACROILIAC JOINT Bilateral 09/04/2022 Performed by Dave Garcia MD at [facility] BLOCK SACROILIAC JOINT Right 05/22/2022 Performed by Dave Garcia MD at [facility] BLOCK SACROILIAC JOINT Bilateral 02/20/2022 Performed by Dave Garcia MD at [facility] BLOCK SACROILIAC JOINT Bilateral 10/20/2021 Performed by Dave Garcia MD at [facility] BLOCK SACROILIAC JOINT Bilateral 12/13/2020 Performed by Dave Garcia MD at [facility] INJECTION BURSA LARGE JOINT Right hip intra-articular Right 02/21/2021 Performed by Dave Garcia MD at [facility] INJECTION BURSA LARGE JOINT: right hip Right 03/27/2022 Performed by Dave Garcia MD at [facility] CAUDAL EPIDURAL WITH CATHETER, STEROID N/A 02/23/2020 Performed by Dave Garcia MD at [facility] CAUDAL EPIDURAL WITH CATHETER, STEROID N/A 01/15/2020 Performed by Dave Garcia MD at [facility] CAUDAL EPIDURAL WITH CATHETER, STEROID N/A 06/23/2019 Performed by Dave Garcia MD at [facility] CAUDAL EPIDURAL WITH CATHETER, STEROID N/A 05/05/2019 Performed by Dave Garcia MD at [facility] IN[facility] CAUDAL EPIDURAL WITH CATHETER, STEROID N/A 08/12/2018 Performed by Dave Garcia MD at [facility] IN[facility] CAUDAL EPIDURAL WITH CATHETER, STEROID 1 of 2 N/A 01/28/2018 Performed by Dave Garcia MD at [facility] CAUDAL EPIDURAL WITH CATHETER, STEROID 2 of 2 N/A 02/11/2018 Performed by Dave Garcia MD at [facility] INJECTION SPINE TRANSFORAMINAL Left L 1,2 Nroot Left 01/24/2021 Performed by Dave Garcia MD at [facility] INJECTION SPINE TRANSFORAMINAL: left L 1,2 nroot Left 04/17/2022 Performed by Dave Garcia MD at [facility] INJECTION SPINE TRANSFORAMINAL: right L 1,2 nroot Right 04/16/2023 Performed by Dave Garcia MD at [facility] LAMINECTOMY LUMBAR SINGLE LEVEL / L1-L2 N/A 10/22/2023 Performed by Darrell Olsen MD at [facility] LUMBAR FUSION 2020 L2-S1 REFRACTIVE SURGERY Bilateral SOCIAL HISTORY Social History Socioeconomic History Marital status: Spouse name: Not on file Number of children: Not on file Years of education: Not on file Highest education level: Not on file Occupational History Not on file Tobacco Use Smoking status: Never Smokeless tobacco: Former Types: Chew Quit date: 1996 Vaping Use Vaping status: Every Day Substances: THC, CBD Devices: Disposable Substance and Sexual Activity Alcohol use: Not Currently Comment: stopped 18 months ago Drug use: Yes Frequency: 7.0 times per week Types: Marijuana, Medical Marijuana Comment: daily use Sexual activity: Defer Other Topics Concern Not on file Social History Narrative Not on file Social Determinants of Health Financial Resource Strain: Not on file Food Insecurity: No Food Insecurity (10/25/2023) Hunger Screening Food Insecurity - Worry: Never True Food Insecurity - Inability: Never True Transportation Needs: No Transportation Needs (10/25/2023) PRAPARE - Transportation Lack of Transportation (Medical): No Lack of Transportation (Non-Medical): No Physical Activity: Not on file Stress: Not on file Social Connections: Not on file Interpersonal Safety: Not At Risk (10/25/2023) Humiliation, Afraid, Rape, and Kick questionnaire Fear of Current or Ex-Partner: No Emotionally Abused: No Physically Abused: No Sexually Abused: No Housing Instability: Low Risk (10/25/2023) Housing Instability Housing Instability: No REVIEW OF SYSTEMS ROS Positive Findings: Negative otherwise noted in the HPI PHYSICAL EXAMINATION Alert Oriented Percussion tenderness along spine Absent Lhermitte's Absent Spurling ROM of the back is decreased No weakness No pathological reflexes No atrophy No fasciculations Sensation to light touch is normal in butt dermatomes Gait is mildly antalgic JENNIE is negative SLR is negative The surgical wound is well approximated and well healed without signs or symptoms of infection. There is no redness, edema or drainage. MRI / IMAGES None new Electronically Signed By: Charles Tim CNP This note was created with the assistance of a speech recognition program with the goal of generating a timely record of the patient encounter. Inadvertent computerized property site manager errors related to syntax, spelling, homophones, and/or inaudibility may be present. DI Cha 12/02/23 1641 documented in this encounter [facility] 12-02-2023 Instructions VIGNESH Hoover - 12/02/2023 3:00 PM EDT Patient was seen today by DI Resendiz Given medrol pack Aquatic therapy referral Patient was scheduled for a follow up in 3 months. JA documented in this encounter [facility] 11-26-2023 Miscellaneous Notes Images from the original note were not included. Kathy Ziegler CNA [facility] 11/26/23 12:15 PM Note Patient called for refill of diclofenac 75 mg. Noted he had a new prescription sent 09/16/23 for Diclofenac 75 mg BID with 5 refills. Left message for pt. He reports the pharmacy told him it was dc'd?? Patient had L 1, 2 laminectomy 10/22/2023. Call was placed to the office of Dr. Olsen to see if NSAIDS are contraindicated at this point post -op. Director Of Marketing [employer] spoke with Radha who states patient had been informed NSAIDS could be used beginning 7 days post-op. New prescription for diclofenac is pended for review and signature if you agree. documented in this encounter [facility] 11-26-2023 Telephone encounter Note Images from the original note were not included. Kathy Ziegler CNA [facility] 11/26/23 12:15 PM Note Patient called for refill of diclofenac 75 mg. Noted he had a new prescription sent 09/16/23 for Diclofenac 75 mg BID with 5 refills. Left message for pt. He reports the pharmacy told him it was dc'd?? Patient had L 1, 2 laminectomy 10/22/2023. Call was placed to the office of Dr. Olsen to see if NSAIDS are contraindicated at this point post -op. Director Of Marketing [employer] spoke with Radha who states patient had been informed NSAIDS could be used beginning 7 days post-op. New prescription for diclofenac is pended for review and signature if you agree. [facility] 11-26-2023 Miscellaneous Notes Patient called for refill of diclofenac 75 mg. Noted he had a new prescription sent 09/16/23 for Diclofenac 75 mg BID with 5 refills. Left message for pt. He reports the pharmacy told him it was dc'd?? documented in this encounter [facility] 11-26-2023 Telephone encounter Note Patient called for refill of diclofenac 75 mg. Noted he had a new prescription sent 09/16/23 for Diclofenac 75 mg BID with 5 refills. Left message for pt. He reports the pharmacy told him it was dc'd?? [facility] 11-04-2023 History of Presen t illness Narrative Images from the original note were not included. [facility] [address] [place] [address], [address] [place] [address] * CHART NOTE ? 11/10/2023 Patient: Celestino Ziegler 1970 [id number] Physician: Darrell Olsen MD CHIEF COMPLAINT Post-op HISTORY OF PRESENT ILLNESS 53 y.o. male presents to the office today as a post-op patient S/P L1-2 laminectomy performed on 10-22-2023. Patient advises that he has been doing very well and is no longer having any of his pre-operative symptoms like the back or radicular pain. 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 Patient presents with a cane as an assistive device for ambulation. Patient is not diabetic and not a smoker. Hx of L2-S1 fusion with Dr. Cadet in 2019. ALLERGIES No Known Allergies MEDICATIONS Current Outpatient Medications: aspirin 81 mg, Take 1 tablet (81 mg total) by mouth in the morning. Ok to resume 10/30/23., Disp: , Rfl: cetirizine (ZyrTEC) 10 MG chewable tablet, Chew 1 tablet (10 mg total) and swallow in the morning., Disp: , Rfl: FLUoxetine (PROzac) 40 MG capsule, Take 1 capsule (40 mg total) by mouth in the morning., Disp: , Rfl: gabapentin (NEURONTIN) 800 mg tablet, Take 1 tablet (800 mg total) by mouth 3 (three) times a day., Disp: 90 tablet, Rfl: 1 levothyroxine (SYNTHROID, LEVOTHROID) 25 MCG tablet, Take 1 tablet (25 mcg total) by mouth in the morning. Indications: a condition with low thyroid hormone levels., Disp: , Rfl: liothyronine (CYTOMEL) 5 MCG tablet, Take 1 tablet (5 mcg total) by mouth in the morning., Disp: , Rfl: multivitamin capsule, Take 1 capsule by mouth in the morning., Disp: , Rfl: SYMBICORT 160-4.5 mcg/actuation inhaler, Inhale 2 puffs in the morning and 2 puffs before bedtime., Disp: , Rfl: 1 VENTOLIN HFA 90 mcg/actuation inhaler, Inhale 2 puffs every 4 (four) hours as needed., Disp: , Rfl: cyclobenzaprine (FLEXERIL) 5 mg tablet, Take 1 tablet (5 mg total) by mouth 3 (three) times a day as needed for muscle spasms. (Patient not taking: Reported on 11/04/2023), Disp: 30 tablet, Rfl: 0 diazePAM (VALIUM) 2 mg tablet, Take 1 tablet (2 mg total) by mouth every 6 (six) hours as needed for anxiety. (Patient not taking: Reported on 11/04/2023), Disp: , Rfl: famotidine (PEPCID) 20 mg tablet, Take 1 tablet (20 mg total) by mouth in the morning and 1 tablet (20 mg total) before bedtime. (Patient not taking: Reported on 11/04/2023), Disp: , Rfl: naloxone (NARCAN) 4 mg/actuation spray,non-aerosol nasal spray, Administer 1 spray (4 mg total) into alternating nostrils as needed for opioid reversal. (Patient not taking: Reported on 11/04/2023), Disp: 1 each, Rfl: 0 VITAL SIGNS Ht 170.2 cm (5' 7 ) Wt 91.6 kg (202 lb) BMI 31.64 kg/m PHYSICAL EXAMINATION Alert and oriented x 3. Strength is 5/5 throughout. There are no notable sensory deficits. DTR 2+ throughout. Gait is normal. Surgical wound is well approximated and well healed without signs or symptoms of infection. There is no redness, edema or drainage. MRI / IMAGES None new IMPRESSION / PLAN 53 y.o. male presents to the office today as a post-op patient S/P L1-2 laminectomy performed on 10-22-2023. Patient advises that he has been doing very well and is no longer having any of his pre-operative symptoms like the back or radicular pain. PLAN: Patient will follow up as needed. Electronically Signed By: Darrell Olsen MD This note was created with the assistance of a speech recognition program with the goal of generating a timely record of the patient encounter. Inadvertent computerized property site manager errors related to syntax, spelling, homophones, and/or inaudibility may be present. Scribe Statement: Scribed for and in the presence of Darrell Olsen MD by Dg Sandoval. Provider Statement: I, Darrell Olsen MD personally performed the services described in the documentation, as scribed by Dg Sandoval in my presence, and it is both accurate and complete documented in this encounter [facility] 11-04-2023 Instructions VIGNESH Hoover - 11/04/2023 10:10 AM EDT Patient was seen today by Dr. Olsen. Will follow up as needed JA documented in this encounter [facility] 10-28-2023 History and physi brigido note Note Date/Time October 28, 2023 10:24am [facility] [address] [place] [address] Physiatry (Rehab) H&P Signed Patient: Celestino Ziegler MR#: [id number] : 1970 Acct:[id number] Age/Sex: 53 / M Adm Date: 4 Loc: 5T Room: [address] [place] [address] Type: ADM IN Attending Dr: Qasim Mancilla MD Copies to: MD Adithya Mcmanus MD~ Date of Service: 10/28/2023 HPI History of Present Illness: Mr. Ziegler is a 53 year old male with past medical history of lumbar spinal stenosis with neurogenic claudication who presented to [facility] on 10/21 for elective L1-L2 [...] independent. Patient hopeful to go home soon. [facility] Medical History (Updated 10/28/23 @ 12:47 [...] mcg/actuation aerosol inhaler (ProAir HFA) 2 inh [id number] PRN shortness of breath or wheezing 10/27/23 [...] Reason: Pain Stop: 10/26/24 14:24 Last Admin: 03/13/24 17:54 Dose: 500 mg Al Hydrox/Mg Hydrox/Simethicone (Mag Hydrox/Al Hydrox/Simeth 30 Ml Udc) 30 ml PO Q4H PRN PRN Reason: Indigestion Stop: 10/26/24 14:24 Albuterol (Albuterol Hfa 60 Puff/8 Gram Inhaler) 2 puff INHALATION Q4HR PRN PRN Reason: shortness of breath or wheezing Stop: 10/26/24 15:02 Aspirin (Aspirin 81 Mg Tablet.Dr) 81 mg PO QHS [facility] Stop: 10/29/24 08:59 Bisacodyl (Bisacodyl 10 Mg Supp.Rect) 10 mg OK DAILY PRN PRN Reason: Constipation Stop: 10/26/24 14:24 Budesonide/Formoterol Fumarate (Budesonide/Formoterol 160-4.5 Mcg 60 Puff/6 Gm Hfa.Aer.Ad) 2 puff INHALATION BID [facility] Stop: 10/26/24 20:59 Last Admin: 10/28/23 05:56 Dose: 2 puff Cyclobenzaprine HCl (Cyclobenzaprine 5 Mg Tablet) 5 mg PO TID PRN PRN Reason: back spasms Stop: 10/26/24 15:02 Dexamethasone (Dexamethasone 2 Mg Tablet) 2 mg PO Q8H [facility]; Taper Stop: 11/06/23 21:59 Last Admin: 10/28/23 06:32 Dose: 2 mg Diazepam (Diazepam 2 Mg Tablet) 2 mg PO Q6HR PRN PRN Reason: anxiety Stop: 04/24/24 15:02 Docusate Sodium (Docusate 100 Mg Capsule) 100 mg PO BID PRN PRN Reason: Constipation Stop: 10/26/24 14:24 Docusate Sodium (Docusate Enema 283 Mg/5 Ml Enema) 283 mg OK DAILY PRN PRN Reason: Constipation Stop: 10/26/24 14:24 Famotidine (Famotidine 20 Mg Tablet) 20 mg PO BID [facility] Stop: 10/26/24 20:59 Last Admin: 10/28/23 09:25 Dose: 20 mg Fluoxetine HCl (Fluoxetine 20 Mg Capsule) 40 mg PO QAM [facility] Stop: 10/27/24 08:59 Last Admin: 10/28/23 09:25 Dose: 40 mg Gabapentin (Gabapentin 800 Mg Tablet) 800 mg PO TID [facility] Stop: 10/26/24 21:59 Last Admin: 10/28/23 09:25 Dose: 800 mg Heparin Sodium (Porcine) (Heparin 5,000 Unit/Ml Vial) 5,000 unit SUBCUT Q8HR [facility] Stop: 10/28/24 21:59 Lactulose (Lactulose 20 Gm/30 Ml Udc) 30 gm PO DAILY PRN PRN Reason: Constipation Stop: 10/26/24 14:24 Liothyronine Sodium (Liothyronine 5 Mcg Tablet) 5 mcg PO DAILY [facility] Stop: 10/27/24 08:59 Last Admin: 10/28/23 09:25 Dose: 5 mcg Loratadine (Loratadine 10 Mg Tablet) 10 mg PO DAILY [facility] Stop: 10/27/24 08:59 Last Admin: 10/28/23 09:25 Dose: 10 mg Multivitamins (Multivitamin 1 Tab Tablet) 1 tab PO DAILY@1200 [facility] Stop: 10/27/24 11:59 Oxycodone HCl (Oxycodone [...] % (Auto) 61.0 Lymph % (Auto) 28.7 [place] % (Auto) 9.6 Eos % (Auto) 0.4 Baso % (Auto) 0.3 Nucleat RBC Rel Count 0.1 Neut # (Auto) 4.5 Lymph # (Auto) 2.1 [place] # (Auto) 0.7 Eos # (Auto) 0.0 [...] 24 hour daily monitoring and intervention from Food Order Expediter as well as other consulting physicians including internal medicine as well as 24 hour daily fire safety inspector nursing - for medical safe / optimal [...] a 53-year-old male with who presents to [facility] due to functional decline in the [...] equipment to enhance the patient's a functional jain -Encourage deep breathing exercises and incentive spirometry [...] chart, including current orders, allied health and jewelry consultant notes, labs/imaging and performed butt elements of exam and I formulated the plan of care and facilitated the medical decision making. I completed a substantive portion of this encounter, the medical decision makingportion of this note in its entirety, including Allied health note review, nursing note review, jewelry consultant note review, discussion with nursing and case management, and more than 50% of my time was spent on counseling and coordination of care, time spent 75 minutes Documented By: Qasim Mancilla MD [id number] Signed By: <Electronically signed by Qasim Mancilla MD> 10/28/23 7[facility] Work Phone: 1(102) 939-190702-23-2024 Miscellaneous Notes* Telephone Encounter - Radha Bustillos RN - 10/08/2023 4:01 PM EST PTT of 40 called from lab. 10/22/23 LAMINECTOMY LUMBAR SINGLE LEVEL / L1-L2 documented in this encounterOhio[facility] Telephone encounter Note* Telephone Encounter - Radha Bustillos RN - 10/08/2023 4:01 PM EST PTT of 40 called from lab. 10/22/23 LAMINECTOMY LUMBAR SINGLE LEVEL / L1-L2 [facility] Built [id number] History and physical note* Beata Esteban APRN-CARE CLINICIAN - 10/08/2023 1:15 PM EST PRE-ADMISSION TESTING HISTORY AND PHYSICAL EXAM DATE: 10/08/23 PCP: ADITHYA HERRERA MD CHIEF COMPLAINT: Spinal stenosis of lumbar region with neurogenic claudication HISTORY OF PRESENT ILLNESS: Celestino Ziegler, a 53 y.o. White or male, presents to [facility] for a pre-surgical H&P. The patient has been diagnosed with spinal stenosis of lumbar region with neurogenic claudication. He reports he has dealt with back pain since he was young, but it has gradually gotten worse. 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 He rates his pain [...] HISTORY: Past Medical History: Diagnosis Date Alcoholism ([facility]) Anemia Asthma Back pain Chronic pain [...] Performed by Jr Christian Estrada DO at [facility] ARTHROSCOPY REPAIR ROTATOR CUFF SHOULDER Left 06/07/2018 Performed by Jr Christian Estrada DO at [facility] ARTHROSCOPY SHOULDER Left 06/07/2018 Performed by Jr Christian Estrada DO at [facility] INJECTION BLOCK SACROILIAC JOINT Bilateral 06/04/2023 Performed by Dave Garcia MD at [facility] IN[facility]CTION BLOCK SACROILIAC JOINT Bilateral 03/19/2023 Performed by Dave Garcia MD at [facility] BLOCK SACROILIAC JOINT Bilateral 01/15/2023 Performed by Dave Garcia MD at [facility] BLOCK SACROILIAC JOINT Bilateral 09/04/2022 Performed by Dave Garcia MD at [facility] BLOCK SACROILIAC JOINT Right 05/22/2022 Performed by Dave Garcia MD at [facility] BLOCK SACROILIAC JOINT Bilateral 02/20/2022 Performed by Dave Garcia MD at [facility] BLOCK SACROILIAC JOINT Bilateral 10/20/2021 Performed by Dave Garcia MD at [facility] BLOCK SACROILIAC JOINT Bilateral 12/13/2020 Performed by Dave Garcia MD at [facility] INJECTION BURSA LARGE JOINT Right hip intra-articular Right 02/21/2021 Performed by Dave Garcia MD at [facility] BURSA LARGE JOINT: right hip Right 03/27/2022 Performed by Dave Garcia MD at [facility] CAUDAL EPIDURAL WITH CATHETER, STEROID N/A 02/23/2020 Performed by Dave Garcia MD at [facility] CAUDAL EPIDURAL WITH CATHETER, STEROID N/A 01/15/2020 Performed by Dave Garcia MD at [facility] CAUDAL EPIDURAL WITH CATHETER, STEROID N/A 06/23/2019 Performed by Dave Garcia MD at [facility] CAUDAL EPIDURAL WITH CATHETER, STEROID N/A 05/05/2019 Performed by Dave Garcia MD at [facility] CAUDAL EPIDURAL WITH CATHETER, STEROID N/A 08/12/2018 Performed by Dave Garcia MD at [facility] CAUDAL EPIDURAL WITH CATHETER, STEROID 1 of 2 N/A 01/28/2018 Performed by Dave Garcia MD at [facility] CAUDAL EPIDURAL WITH CATHETER, STEROID 2 of 2 N/A 02/11/2018 Performed by Dave Garcia MD at [facility] SPINE TRANSFORAMINAL Left L 1,2 Nroot Left 01/24/2021 Performed by Dave Garcia MD at [facility] SPINE TRANSFORAMINAL: left L 1,2 nroot Left 04/17/2022 Performed by Dave Garcia MD at [facility] SPINE TRANSFORAMINAL: right L 1,2 nroot Right 04/16/2023 Performed by Dave Garcia MD at [facility] LUMBAR FUSION 2019 L2-S1 REFRACTIVE SURGERY Bilateral [...] the most recent lab values available in [facility] at the time ofthe office visit and additional labs may have been drawn since that time. ASSESSMENT / DIAGNOSIS: Spinal stenosis of lumbar region with neurogenic claudication PLAN: Celestino Ziegler is scheduled for Laminectomy Lumbar Single Level / L1-L2 with Dr. Olsen on 10/22/23. DI Singletary 10/08/23 1426 [facility] Work Phone: 1(695) 247-563102-23-2024 History and physical note* DI Singletary - 10/08/2023 1:15 PM EST PRE-ADMISSION TESTING HISTORY AND PHYSICAL EXAM DATE: 10/08/23 PCP: ADITHYA HERRERA MD CHIEF COMPLAINT: Spinal stenosis of lumbar region with neurogenic claudication HISTORY OF PRESENT ILLNESS: Celestino Ziegler, a 53 y.o. White or male, presents to [facility] for a pre-surgical H&P. The patient has been diagnosed with spinal stenosis of lumbar region with neurogenic claudication. He reports he has dealt with back pain since he was young, but it has gradually gotten worse. 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 He rates his pain [...] HISTORY: Past Medical History: Diagnosis Date Alcoholism ([facility]) Anemia Asthma Back pain Chronic pain disorder Cough Environmental allergies Hypertension history of this, not currently treated Hypothyroidism Low back pain Neck pain Spinal stenosis of lumbar region with neurogenic claudication Visual impairment lasik PAST SURGICAL HISTORY: Past Surgical History: Procedure Laterality Date ARTHROSCOPY REPAIR LESION SUPERIOR LABRUM EXTENDING FROM ANTERIOR TO POSTERIOR (SLAP) SHOULDER Left06/07/2018 Performed by Jr Christian Estrada DO at [facility] ARTHROSCOPY REPAIR ROTATOR CUFF SHOULDER Left 06/07/2018 Performed by Jr Christian Estrada DO at [facility] ARTHROSCOPY SHOULDER Left 06/07/2018 Performed by Jr Christian Estrada DO at [facility] INJECTION BLOCK SACROILIAC JOINT Bilateral 06/04/2023 Performed by Dave Garcia MD at [facility] BLOCK SACROILIAC JOINT Bilateral 03/19/2023 Performed by Dave Garcia MD at [facility] BLOCK SACROILIAC JOINT Bilateral 01/15/2023 Performed by Dave Garcia MD at [facility] BLOCK SACROILIAC JOINT Bilateral 09/04/2022 Performed by Dave Garcia MD at [facility] BLOCK SACROILIAC JOINT Right 05/22/2022 Performed by Dave Garcia MD at [facility] BLOCK SACROILIAC JOINT Bilateral 02/20/2022 Performed by Dave Garcia MD at [facility] BLOCK SACROILIAC JOINT Bilateral 10/20/2021 Performed by Dave Garcia MD at [facility] INJECTION BLOCK SACROILIAC JOINT Bilateral 12/13/2020 Performed by Dave Garcia MD at [facility] INJECTION BURSA LARGE JOINT Right hip intra-articular Right 02/21/2021 Performed by Dave Garcia MD at [facility] BURSA LARGE JOINT: right hip Right 03/27/2022 Performed by Dave Garcia MD at [facility] INJECTION CAUDAL EPIDURAL WITH CATHETER, STEROID N/A 02/23/2020 Performed by Dave Garcia MD at [facility] IN[facility] CAUDAL EPIDURAL WITH CATHETER, STEROID N/A 01/15/2020 Performed by Dave Garcia MD at [facility] CAUDAL EPIDURAL WITH CATHETER, STEROID N/A 06/23/2019 Performed by Dave Garcia MD at [facility] CAUDAL EPIDURAL WITH CATHETER, STEROID N/A 05/05/2019 Performed by Dave Garcia MD at [facility] CAUDAL EPIDURAL WITH CATHETER, STEROID N/A 08/12/2018 Performed by Dave Garcia MD at [facility] INJECTION CAUDAL EPIDURAL WITH CATHETER, STEROID 1 of 2 N/A 01/28/2018 Performed by Dave Garcia MD at [facility] CAUDAL EPIDURAL WITH CATHETER, STEROID 2 of 2 N/A 02/11/2018 Performed by Dave Garcia MD at [facility] SPINE TRANSFORAMINAL Left L 1,2 Nroot Left 01/24/2021 Performed by Dave Garcia MD at [facility] SPINE TRANSFORAMINAL: left L 1,2 nroot Left 04/17/2022 Performed by Dave Garcia MD at [facility] SPINE TRANSFORAMINAL: right L 1,2 nroot Right 04/16/2023 Performed by Dave Garcia MD at [facility] LUMBAR FUSION 2020 L2-S1 REFRACTIVE SURGERY Bilateral [...] the most recent lab values available in [facility] at the time ofthe office visit and additional labs may have been drawn since that time. ASSESSMENT / DIAGNOSIS: Spinal stenosis of lumbar region with neurogenic claudication PLAN: Celestino Ziegler is scheduled for Laminectomy Lumbar Single Level / L1-L2 with Dr. Olsen on 10/22/23. DI Singletary 10/08/23 1426 documented in this encounterWhite River Junction Va Medical CenterLendsquare [id number] Instructions* Patient Instructions* Katina Mckeon RN - 10/08/2023 1:15 PM EST Your surgery/procedure is scheduled at [facility] on 10/22/2023 at 0730 Arrival Time 0530 [facility] Address: [address] [place] [address] in P1 Parking lot located on [facility]. Report to the Entrance B. Check in at the information desk the surgery. The waiting room located on the second floor. If you have any questions prior to surgery, please call Pre-Admission Clinic at [phone] between 7:30 am and 4:30 pm Wednesday through Wednesday. If you have questions the morning of surgery, please call the Pre-op Department at [phone]. Notify your SURGEON if you develop any [...] would like to schedule therapy at a [facility] facility, please call [phone] ([phone]). Do not use lotions, creams, powders, perfume, [...] RIGHTS AND RESPONSIBILITIES As a patient at [facility], you have the right to: Receive medical care and be informed of who is taking care of you Be treated with dignity and respect Have a family member/medical device sales representative of choice and your physician notified of your admission Receive information and actively participate in decisions about your care and treatment Refuse care, treatment and services Decide who may provide your support and speak for you Access spiritism and spiritual services Participate in ethical issues [...] of hospital charges and payment methods Patient/patient medical device sales representative responsibilities are to: Provide information about [...] surgery in clean clothes. documented in this encounterOhio[facility]-2024 NoteXR CHEST 2 VWS CLINICAL INFORMATION: . Pre-op testing. TECHNIQUE/PROCEDURE: Chest radiographs, two views. COMPARISON: Prior chest radiographs, most recently 05/24/2018 FINDINGS: No tracheal deviation. Cardiac and mediastinal contours are normal. No consolidation, pneumothorax or pleural effusion. No free air. IMPRESSION: * No radiographic evidence of acute cardiopulmonary disease. Finalized by Brenden Zapien MD on 09/23/2023 4:11 [facility] 09-23-2023 NoteCLINICAL INFORMATION: . Pre-op testing. TECHNIQUE/PROCEDURE: Chest radiographs, two views. COMPARISON: Prior chest radiographs, most recently 05/24/2018 FINDINGS: No tracheal deviation. Cardiac and mediastinal contours are normal. No consolidation, pneumothorax or pleural effusion. No free air. IMPRESSION: * No radiographic evidence of acute cardiopulmonary disease. Finalized by Brenden Zapien MD on 09/23/2023 4:11 [id number] History of Present illness Narrative* Charles Tim APRN-CARE CLINICIAN - 09/23/2023 11:50 AM EST Images from the original note were not included. [facility] [address] [place] [address], [address] [place] [address] * CHART NOTE ? 09/23/2023 Patient: Celestino Ziegler 1970 [id number] Physician: Darrell Olsen MD CHIEF COMPLAINT Low [...] to the patient's understanding. 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 Inadvertent computerized property site manager errors related to syntax, spelling, homophones, and/or inaudibility may be present. DI Cha 09/23/23 1548 documented in this encounterOhioHealth [facility]in [facility]02-08-2024 Instructions* Patient Instructions* VIGNESH Hoover - 09/23/2023 11:50 AM EST Patient was seen by Dr. Olsen and DI Resendiz Patient was offered surgery for L1-L2 Laminectomy with Fusion. Patient will meet with Dr. Pretty Maradiaga's physician assistant surgery, to schedule surgery. Patient was given an order for a chest x ray. JA documented in this encounterOhioHealth [facility]02-01-2024 Miscellaneous Notes* Telephone Encounter - Kathy Ziegler CNA - 09/16/2023 2:24 PM EST Last OV: 08/19/23 Next OV: 09/23/23 With Reinard OARRS appropriate: yes Last UDS: na Pharmacy: [facility] documented in this encounterOhioHealth [facility]02-01-2024 Telephone encounter Note* Telephone Encounter - Kathy Ziegler CNA - 09/16/2023 2:24 PM EST Last OV: 08/19/23 Next OV: 09/23/23 With Reinard OARRS appropriate: yes Last UDS: na [facility]acy: [facility] History of Present illness Narrative* DI Cha - 09/02/2023 10:15 AM EST Images from the original note were not included. [facility] [address] [place] [address], [place] [address] * CHART NOTE ? 09/02/2023 Patient: Celestino Ziegler 1970 [id number] Nurse Practitioner: Charles Tim CNP Physician: Darrell Olsen MD, FAANS CHIEF [...] good candidate for that. 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, saddle anesthesia, urinary or bowel dysfunction, [...] HISTORY Past Medical History: Diagnosis Date Alcoholism ([facility]) Anxiety Back pain Chronic pain disorder Cough Depression Environmental allergies Hypertension history of this, not currently treated Low back pain Neck pain Visual impairment contacts PAST SURGICAL HISTORY Past Surgical History: Procedure Laterality Date ARTHROSCOPY REPAIR LESION SUPERIOR LABRUM EXTENDING FROM ANTERIOR TO POSTERIOR (SLAP) SHOULDER Left06/07/2018 Performed by Jr Christian Estrada DO at [facility] ARTHROSCOPY REPAIR ROTATOR CUFF SHOULDER Left 06/07/2018 Performed by Jr Christian Estrada DO at [facility] ARTHROSCOPY SHOULDER Left 06/07/2018 Performed by Jr Christian Estrada DO at [facility] INJECTION BLOCK SACROILIAC JOINT Bilateral 06/04/2023 Performed by Dave Garcia MD at [facility] BLOCK SACROILIAC JOINT Bilateral 03/19/2023 Performed by Dave Garcia MD at [facility] IN[facility] BLOCK SACROILIAC JOINT Bilateral 01/15/2023 Performed by Dave Garcia MD at [facility] BLOCK SACROILIAC JOINT Bilateral 09/04/2022 Performed by Dave Garcia MD at [facility] BLOCK SACROILIAC JOINT Right 05/22/2022 Performed by Dave Garcia MD at [facility] BLOCK SACROILIAC JOINT Bilateral 02/20/2022 Performed by Dave Garcia MD at [facility] BLOCK SACROILIAC JOINT Bilateral 10/20/2021 Performed by Dave Garcia MD at [facility] BLOCK SACROILIAC JOINT Bilateral 12/13/2020 Performed by Dave Garcia MD at [facility] INJECTION BURSA LARGE JOINT Right hip intra-articular Right 02/21/2021 Performed by Dave Garcia MD at [facility] INJECTION BURSA LARGE JOINT: right hip Right 03/27/2022 Performed by Dave Garcia MD at [facility] CAUDAL EPIDURAL WITH CATHETER, STEROID N/A 02/23/2020 Performed by Dave Garcia MD at [facility] CAUDAL EPIDURAL WITH CATHETER, STEROID N/A 01/15/2020 Performed by Dave Garcia MD at [facility] CAUDAL EPIDURAL WITH CATHETER, STEROID N/A 06/23/2019 Performed by Dave Garcia MD at [facility] CAUDAL EPIDURAL WITH CATHETER, STEROID N/A 05/05/2019 Performed by Dave Garcia MD at [facility] CAUDAL EPIDURAL WITH CATHETER, STEROID N/A 08/12/2018 Performed by Dave Garcia MD at [facility] CAUDAL EPIDURAL WITH CATHETER, STEROID 1 of 2 N/A 01/28/2018 Performed by Dave Garcia MD at [facility] CAUDAL EPIDURAL WITH CATHETER, STEROID 2 of 2 N/A 02/11/2018 Performed by Dave Garcia MD at [facility] INJECTION SPINE TRANSFORAMINAL Left L 1,2 Nroot Left 01/24/2021 Performed by Dave Garcia MD at [facility] INJECTION SPINE TRANSFORAMINAL: left L 1,2 nroot Left 04/17/2022 Performed by Dave Garcia MD at [facility] INJECTION SPINE TRANSFORAMINAL: right L 1,2 nroot Right 04/16/2023 Performed by Dave Garcia MD at [facility] REFRACTIVE SURGERY Bilateral FAMILY HISTORY Family History [...] Right achilles 2+ Left achilles 2+ 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 Inadvertent computerized property site manager errors related to syntax, spelling, homophones, and/or inaudibility may be present. DI Cha 09/02/23 1040 documented in this encounterWhite River Junction Va Medical CenterCohera Medical01-18-2024 Instructions* Patient Instructions* VIGNESH Hoover - 09/02/2023 10:15 AM EST Patient was seen by Astrid, SOLUTIONS EXECUTIVE SECURITY-CARE CLINICIAN Patient was given an order for CT Lumbar without contrast. Lumbar Spine Flex/Ext x ray. Patient will follow up when CT has been scheduled. JA documented in this encounterOhioHealth Hardin [facility]01-04-2024 History of Present illness Narrative* CHIQUITA Wong - 08/19/2023 1:00 PM EST [facility] [address] [place] [address] Patient: Celestino Ziegler Sex: male : 1970 Age: 53 y.o. PCP: ADITHYA HERRERA MD 08/19/2023 Celestino Ziegler is here for a(n) follow up [...] Performed by Jr Christian Estrada DO at [facility] ARTHROSCOPY REPAIR ROTATOR CUFF SHOULDER Left 06/07/2018 Performed by Jr Christian Estrada DO at [facility] ARTHROSCOPY SHOULDER Left 06/07/2018 Performed by Jr Christian Estrada DO at [facility] INJECTION BLOCK SACROILIAC JOINT Bilateral 06/04/2023 Performed by Dave Garcia MD at [facility] BLOCK SACROILIAC JOINT Bilateral 03/19/2023 Performed by Dave Garcia MD at [facility] BLOCK SACROILIAC JOINT Bilateral 01/15/2023 Performed by Dave Garcia MD at [facility] BLOCK SACROILIAC JOINT Bilateral 09/04/2022 Performed by Dave Garcia MD at [facility] BLOCK SACROILIAC JOINT Right 05/22/2022 Performed by Dave Garcia MD at [facility] BLOCK SACROILIAC JOINT Bilateral 02/20/2022 Performed by Dave Garcia MD at [facility] IN[facility] BLOCK SACROILIAC JOINT Bilateral 10/20/2021 Performed by Dave Garcia MD at [facility] IN[facility] BLOCK SACROILIAC JOINT Bilateral 12/13/2020 Performed by Dave Garcia MD at [facility] CAMPUS INJECTION BURSA LARGE JOINT Right hip intra-articular Right 02/21/2021 Performed by Dave Garcia MD at [facility] INJECTION BURSA LARGE JOINT: right hip Right 03/27/2022 Performed by Dave Garcia MD at [facility] INJECTION CAUDAL EPIDURAL WITH CATHETER, STEROID N/A 02/23/2020 Performed by Dave Garcia MD at [facility] IN[facility] CAUDAL EPIDURAL WITH CATHETER, STEROID N/A 01/15/2020 Performed by Dave aGrcia MD at [facility] INJECTION CAUDAL EPIDURAL WITH CATHETER, STEROID N/A 06/23/2019 Performed by Dave Garcia MD at [facility] INJECTION CAUDAL EPIDURAL WITH CATHETER, STEROID N/A 05/05/2019 Performed by Dave Garcia MD at [facility] INJECTION CAUDAL EPIDURAL WITH CATHETER, STEROID N/A 08/12/2018 Performed by Dave Garcia MD at [facility] INJECTION CAUDAL EPIDURAL WITH CATHETER, STEROID 1 of 2 N/A 01/28/2018 Performed by Dave Garcia MD at [facility] INJECTION CAUDAL EPIDURAL WITH CATHETER, STEROID 2 of 2 N/A 02/11/2018 Performed by Dave Garcia MD at [facility] INJECTION SPINE TRANSFORAMINAL Left L 1,2 Nroot Left 01/24/2021 Performed by Dave Garcia MD at [facility] INJECTION SPINE TRANSFORAMINAL: left L 1,2 nroot Left 04/17/2022 Performed by Dave Garcia MD at [facility] INJECTION SPINE TRANSFORAMINAL: right L 1,2 nroot Right 04/16/2023 Performed by Dave Garcia MD at [facility] REFRACTIVE SURGERY Bilateral No Known Allergies Family [...] CHIQUITA Wong 08/24/23 0902 [facility]* Encounter Date Diagnosis [...] fusion of lumbar spine (ICD-10 - Z98.1) [facility] Other 01-31-2023 Evaluation note* Encounter Date Diagnosis [...] fusion of lumbar spine (ICD-10 - Z98.1) [facility] Other 12-20-2022 Evaluation note* Encounter Date Diagnosis [...] Spondylolisthesis of lumbar region (ICD-10 - M43.16) [facility] Other 12-21-2021 Evaluation note* Encounter Date Diagnosis [...] Jul, Other chronic pain (ICD-10 - G89.29) [facility] Other 10-23-2018 History general Narrative - Reported* Type Description Date Medical History chronic depression Medical History asthma Surgical History LT SHOULDER SCOPE PER DR ACUNA IC 06/07/18 Surgical History rotator cuff(L) Surgical History lasik Surgical History [facility] Hospitalization History See Above [facility] Other discharge summary Author Qasim Mancilla [facility] November 01, 2023 9:31am Note Date/Time October 30, 2023 10: 15am [facility] [address] [place] [address] Discharge Summary Signed Patient: Celestino Ziegler MR#: [id number] : 1970 Acct:[id number] Age/Sex: 53 / M Adm Date: 4 Loc: Room: 4P6993-[address]: Qasim Mancilla MD Copies to: MD Adithya Mcmanus MD~ Providers Date of Discharge: 10/29/23 Discharging Provider: Qasim Mancilla Primary Care Provider: Adithya Herrera Consults: 10/27/23 14:25 Consult to Adult [...] with chronic back pain. Patient went to [facility] October 21 for elective L1-2 compressive laminectomy and partial medial facetectomy with L1-2 fusion after failed conservative treatment. He was seen by therapy services and felt would benefit from ongoing therapy and subsequently transferred to the inpatient rehab unit [facility] October 27. Postoperatively the patient did have [...] - 11/04/23 10:10 am (Arrive by 9:55am) Adithya Herrera MD [Primary Care Provider] - 11/03/23 9:00 am (-PCP) Documented By: Qasim Mancilla MD [id number] Signed By: <Electronically signed by Qasim Mancilla MD> 11/01/23 0995 [facility] Work Phone: Evaluation + Plan note No data available for this section General Surgery [place] Evaluation noteNo assessment information available [facility] Work Phone: Evaluation note* Diagnosis Onset Date Resolution Status Asthma acute Depression with anxiety acut e Hypothyroid acute Impaired mobility and activities of daily living acute Lumbar spinal stenosis acute Post-operative pain acute S/P lumbar fusion acute [facility] Work Phone: Evaluation note* Diagnosis Lumbosacral spondylosis without myelopathy [facility] Diagnosis Spinal stenosis of lumbar region with neurogenic claudication- Primary Spinal stenosis of lumbar region with neurogenic claudication- Primary Spinal stenosis of lumbar region with neurogenic claudication [facility] Diagnosis Status post lumbar laminectomy- Primary [facility] Diagnosis Status post lumbar laminectomy- Primary [facility]* Diagnosis Spinal stenosis of lumbar region with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
[2024-10-06 07:52] LABS: Hematocrit 39.7 % (42.0-54.0); Hemoglobin 13.1 g/dL (14.0-18.0); Mean Corpuscular Hemoglobin 31.4 pg (25.9-34.0); Mean Corpuscular Volume 95.2 fL (80.0-94.0); Mean Platelet Volume 10.4 fL (9.5-13.5); Platelet Count 198 10^3/uL (150-450); Red Blood Count 4.17 10^6/uL (4.70-6.10); Red Cell Distribution Width 13.4 % (11.0-15.0); White Blood Count 6.5 10^3/uL (4.0-11.0)
[2024-10-06 08:20] LABS: Eosinophils Absolute Manual 0.32 10^3/uL (0.00-0.70); Estimated Average Glucose 111 mg/dL; Glycohemoglobin A1C 5.5 % (4.5-6.2); Lymphocytes Absolute Manual 3.12 10^3/uL (1.20-3.80); Monocytes Absolute Manual 0.13 10^3/uL (0.30-0.80); Segmented Neut Absolute Manual 2.92 10^3/uL (1.4-6.5)
[2024-10-06 08:52] LABS: Alanine Aminotransferase 36 U/L (16-63); Albumin Globulin Ratio 1.4; Albumin Level 3.8 g/dL (3.4-5.0); Alkaline Phosphatase 86 U/L (46-116); Anion Gap 10.6; Aspartate Amino Transferase 19 U/L (15-37); BUN Creatinine Ratio 15.6; Bilirubin Total 0.3 mg/dL (0.2-1.0); Calcium 8.8 mg/dL (8.5-10.1); Carbon Dioxide 28.8 mmol/L (21.0-32.0); Chloride 109 mmol/L (98-107); Chol HDL Ratio 3.3; Cholesterol 164 mg/dL (<=200); Estimated GFR (African America >60 (>=60 mL/min/1.73m^2); Estimated GFR (Non-African Ame >60 (>=60 mL/min/1.73m^2); Globulin 2.8 g/dL; Glucose 90 mg/dL (74-106); HDL Cholesterol 49 mg/dL (40-60); Potassium 4.4 mmol/L (3.5-5.1); Sodium 144 mmol/L (136-145); Thyroid Stimulating Hormone 1.707 uIU/mL (0.358-3.740); Total Protein 6.6 g/dL (6.4-8.2); Triglycerides 95 mg/dL (<=150)
[2024-10-06 08:59] LABS: Prostate Specific Antigen Scrn 0.78 ng/mL (<=4.00)
== END 2024-10-06 07:31 | disposition home or self-care (01) ==
LOC: LAB 07:39
PROVIDERS: PCP Family Medicine; Visit Provider Family Medicine
DX: Z00.00 Encounter for general adult medical examination without abnormal findings (principal); E78.5 Hyperlipidemia, unspecified; R53.83 Other fatigue; R73.09 Other abnormal glucose; I10 Essential (primary) hypertension; Z12.5 Encounter for screening for malignant neoplasm of prostate
CPT/HCPCS: 36415; 80053; 80061; 83036; 84436; 84443; 84481; 85007; 85027; G0103

== ENCOUNTER 2024-11-21 13:53 | Outpatient (OUT) | payer OTHER, SELFPAY ==
--- OUTSIDE RECORDS SUMMARY | 2024-11-21 14:10 | XMS_ITS | CCD ---
Author Organization [facility] CliniSyks Care Team Providers Care Order Control Clerk Blood Bank Name Role Phone Trino Cadet Unavailable DR DONNA HERRERA Admitting Unavailable HOY, DR THOMPSON Attending Unavailable [...] REINECK, DR RHONDA Weathers Attending Unavailabl e SRINIECK, DR RHONDA Weathers Admitting Unavailabl e LAILA, PA RHIANNON Consulting Unavailable ENA, TRISTA Consulting Unavailable MD Donna Herrera Primary Care Provider [phone] MD Trino Cadet Attending Provider DARRELL OLSEN Admitting Unavailable DARRELL OLSEN Attending Unavailable HOY, DONNA M Primary Care Unavailable JIM COPELAND Consulting Unavailable HOY, DONNA M Primary Care Unavailable ADRIA TIMRICIA Referring Unavailable AMENEAY, DONNA M Primary Care Unavailable DARRELL OLSEN Attending Unavailable DARRELL OLSEN Referring Unavailable HOY, DONNA M Primary Care Unavailable MARVA AGUAYO Referring Unavailable HOY, DONNA M Primary Care Unavailable TIM, CHARLES Referring Unavailable HOY, DONNA M Primary Care Unavailable DARRELL OLSEN Referring Unavailable AMEENAY, DONNA M Primary Care Unavailable MD Donna Herrera Primary Care Provider [phone] MD Qasim Mancilla Admit Provider Siebenaler, MD Yazidi D Attending Provider CORNELL Quinones Other Provider Unavailable CORNELL Givens Other Provider Unavailable Swapnil RN Ariela Other Provider Unavailable Arnaldo RN Alyce Other Provider Unavailable CORNELL Giron Other Provider Unavailable CORNELL Hatfield Other Provider Unavailable CORNELL Bunn Other Provider Unavailable MD Lena Tejeda Other Provider MD Virgilio Ley Other Provider Unavailable Angelicas, SENIOR MANAGER QUALITY ASSURANCE Kathy M Other Provider DO Michelle Echols Other Provider MD Oswaldo Washington Other Provider [phone] DO Bhavik Hull Other Provider MD Prosper Fry Other Provider [phone] MD Evelyn Medina Other Provider MD Marcell Green Other Provider Unavailable Mary Carmen SENIOR MANAGER QUALITY ASSURANCEFreida Archuleta Other Provider MD Mary Bowen Other Provider MD Tavon Zarco Other Provider MD Jorge Lopez Other Provider MD Sanjana Cortes Other Provider DO Michel Fuchs Other Provider MD Emil Magana Other Provider MD Tong Varma Other Provider BILLY Feldman Other Provider Mik, SENIOR MANAGER QUALITY ASSURANCEFreida Blanchard Other Provider Unavailable MD Rajat Silvestre Other Provider MD John Krishna Other Provider MD Tod Curry Other Provider MD Maximus Arce Other Provider Unavailable MD Tha Otto Other Provider Robert, DO Swathi Other Provider DO Ricky Guzman R Other Provider DO Juan C Santiago Other Provider [phone] PIPO Franco Other Provider DO Vito Azar Other Provider MD Khloe Silva Other Provider PIPO Ruff Other Provider [phone] PIPO Barba Other Provider MD Janessa Negrete Other Provider MD Avi Khan Other Provider DO Los Constantino Other Provider [phone] DO Eric Yajered Other Provider MD Adam Curry P Other Provider CORNELL Bauer Other Provider Unavailable Donna Herrera Primary Care Physician DARRELL OLSEN Attending Unavailable HOY, DONNA M Referring Unavailable HOY, DONNA M Primary Care Unavailable HOY, DONNA M Referring Unavailable HOY, DONNA M Primary Care Unavailable CHARLES TIM Attending Unavailable XU TROY Referring Unavailable HOY, DONNA M Primary Care Unavailable CHARLES TIM Attending Unavailable HOY, DONNA M Referring Unavailable HOY, DONNA M Primary Care Unavailable CHARLES TIM Attending Unavailable Qasim Mancilla Admitting Unavaila Qasim Ochoa Attending Unavaila Yasmeen Burdick Consulting Unavailable Hoy, Donna M Primary Care Unavailable Flores Givens Consulting Unavailable Ariela Kraft Consulting Unavailable Alyce Mcintosh Consulting Unavailable Berkley Giron Consulting Unavailable Jennifer Hatfield Consulting Unavailable Perla Bunn Consulting Unavailable Lena Tejeda Consulting Unavailable JilVirgilio interiano K Consulting Unavailable Kathy Loya M Consulting Unavailable Michelle Echols Consulting Unavailable [...] Franco Consulting Unavailable Vito Azar Consulting Unavailable DaromarCharlesaymichelle Blanchard Consulting Unavailable Sabi Ruff Consulting Unavailable Adilene Barba Consulting Unavailable Janessa Negrete Consulting Unavailable Avi Khan Consulting Unavailable Los Constantino Consulting Unavailable Keaton Reyes Consulting Unavailable Adam Curry Consulting Unavailable Alisa Bauer Consulting Unavailable Michel Robbins Attending Unavailable Michel Robbins Admitting Unavailable oDnna Herrera Primary Care Unavailable Trino Cadet Attending Unavailable Trino Cadet Admitting Unavailable Donna Herrera Primary Care Unavailable MD Michel Robbins Attending Provider Donna Herrera Referring Unavailable Michel ROBBINS Attending Unavailable Michel ROBBINS Attending Unavailable Michel ROBBINS Attending Unavailable Donna Herrera MD Primary Care Provider [phone] Donna Herrera MD Primary Care Provider [phone] CHARLES TIM Referring Unavailable DONNA HERRERA M Primary Care Unavailable XU TROY Attending Unavailable DONNA HERRERA Referring Unavailable DONNA HERRERA M Primary Care Unavailable DAVE GARCIA Attending Unavailable DAVE GARCIA Referring Unavailable DONNA HERRERA Primary Care Unavailable DAVE GARCIA Admitting Unavailable DAVE GARCIA Attending Unavailable DONNA HERRERA Referring Unavailable DONNA HERRERA M Primary Care Unavailable SHAI TIM Attending Unavail able HOY, DONNA M Primary Care Unavailable XU TROY Attending Unavailable HOY, DONNA M Referring Unavailable HOY, DONNA M Primary Care Unavailable XU TROY Attending Unavailable HOY, DONNA M Referring Unavailable HOY, DONNA M Primary Care Unavailable DAVE GARCIA Attending Unavailable DAVE GARCIA Referring Unavailable HOY, DONNA M Primary Care Unavailable DAVE GARCIA Admitting Unavailable GARCIA, DAVE Esparza Attending Unavailable HOY, DONNA M Referring Unavailable HOY, DONNA M Primary Care Unavailable SCHUYLER SANDS Attending Unavailable HOY, DONNA M Primary Care Unavailable DAVE GARCIA Admitting Unavailable GARCIADAVE VIRK Attending Unavailable HOY, DONNA M Referring Unavailable HOY, DONNA M Primary Care Unavailable DAVE GARCIA Attending Unavailable DAVE GARCIA E Referring Unavailable HOY, DONNA M Primary Care Unavailable ARVINDENBERGXU Attending Unavailable HOY, DNONA M Referring Unavailable HOY, DONNA M Primary Care Unavailable XU TROY Attending Unavailable HOY, DONNA M Referring Unavailable HOY, DONNA M Primary Care Unavailable DAVE GARCIA Attending Unavailable DAVE GARCIA E Referring Unavailable HOY, DONNA M Primary Care Unavailable DAVE GARCIA Admitting Unavailable GARCIADAVE VIRK Attending Unavailable HOY, DONNA M Referring Unavailable HOY, DONNA M Primary Care Unavailable XU TROY Attending Unavailable HOY, DONNA M Referring Unavailable HOY, DONNA M Primary Care Unavailable Allergies Allergy Classification Reported Allergen(s) Allergy Type Date of Onset Reaction(s) Facility (1 source) No Known Medication Allergies; Translations: [No Known Medication Allergies] Propensity to adverse reactions (disorder) [facility] Repository Medications Current Medications Medication Drug Class(es) Dates Sig (Normalized) Sig (Original) [id number] 200 actuat albuterol 0.09 mg/actuat metered dose [...] 1 04/19/2019 Active take 2 puff(s) by [facility] twice daily Symbicort 160-4.5 MCG/ACT INHALE 2 [...] the morning. Active take 2 tablets by [facility] every twenty-four hours Cetirizine HCl 10 MG 2 tablets Orally On ce a day Active cyclobenzaprine hydrochloride 5 mg oral tablet (13 sources) Muscle Relaxant Start: 10-27-2023 End: 10-29-2023 take 5 mg by mouth three times daily Cyclobenzaprine Discontinued 5 MG PO Three times daily October 27, 2023 12:00am October 29, 2023 9:45am Start: 10-23-2023 take 1 tablet by [facility] three times daily as needed for muscle [...] tablet (20 sources) Nonsteroidal Anti-inflammatory Drug Start: 10-14-2023 End: 06-07-2024 take 1 tablet [...] oral tablet (20 sources) Anti-epileptic Agent Start: 08-22-2024 take 1 tablet by mouth three times daily gabapentin (NEURONTIN) 800 mg tablet Indications: Lumbosacral spondylosis without myelopathy Take 1 tablet (800 mg total) by mouth 3 (three) times a day. 90 tablet 1 08/22/2024 Active Start: 04-06-2024 End: 08-22-2024 take 1 tablet by mouth three times daily gabapentin (NEURONTIN) 800 mg tablet Indications: Lumbosacral spondylosis without myelopathy Take 1 tablet (800 mg total) by mouth 3 (three) times a day. 90 tablet 1 06/07/2024 Active Start: 08-03-2023 End: 04-04-2024 take 1 [...] Start Date: 10/14/23 Status: Ordered levothyroxine sodium 0.05 mg oral tablet (17 sources) l-Thyroxine take 1 tablet by mouth in the morning levothyroxine (SYNTHROID, LEVOTHROID) 50 MCG tablet Indications: hypothyroidism Take 1 tablet (50 mcg total) by mouth in the morning. Indications: a condition with low thyroid hormone levels. Active take 1 tablet by mouth in the mo rning levothyroxine (SYNTHROID, LEVOTHROID) 25 MCG tablet Indications: hypothyroidism Take 1 tablet (25 mcg total) by mouth in the morning. Indications: a condition with low thyroid hormone levels. 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 [facility] General Surgery Office/Clini c Noteon 12-29-2023 General [...] virus vaccine, inactivated 05/19/2023 Recorded SARS-CoV-2 (COVID-19) [id number] 04/28/2022 Recorded SARS-CoV-2 (COVID-19) mRNA BNT-162b2 vax 08/04/2021 Recorded SARS-CoV-2 (COVID-19) mRNA BNT-162b2 vax 11/16/2020 Recorded SARS-CoV-2 (COVID-19) mRNA BNT-162b2 vax 10/26/2020 Recorded Normal [facility] Comment on above: Result Comment: Elec tronically Signed By: ROSENDO OROURKE, Michel Sue\Date and Time Signed: 12/29/23 16:49 EDT Reminderson 12-29-2023 Reminders - From: Terra Smith LPN To: N - Clinical; Sent: 12/29/2023 16:30:19 EDT Show up: 11/21/2033 07:00:00 EDT Subject: colonoscopy recall Due Date/Time: 12/21/2033 07:00:00 EDT Reminder/Recall Patient due for screening colonoscopy 12/21/2033. Normal [facility] Outside Colonoscopyon 2023 Outside Colonoscopy [id number]#1.00TIF F Normal [facility] Pathology Noteon 12-24-2023 Pathology Note [id number]#1.00TIFF Normal [facility] Roque 12-22-2023 L Specimen: [id number] Received: 12/22/23-7 Status: SOUT Req Num: [id number] Spec Type: Surgical Subm Dr: Michel Robbins MD FACS Tissues: A Skin-Other than Cyst, tag, debridement or plastic repair (LT EAR LESION) Procedures: HE, Gross/Micro L4 Age/ Patient Sex Location Account Attending Physician Celestino Ziegler 53/M [place] [id number] Michel Robbins MD FACS SPEC NUM: [id number] RECD: 12/22/23 STATUS: SHELLEY CADENA NUM: [id number] LONNIE: 12/22/23 [facility] DR: Michel Robbins MD FACS ENTERED: 12/22/[address] [facility] [address]: Aurora Simons SPEC TYPE: Surgical [...] EGD-normal, colonoscopy-normal lesion left ear CPT Codes 83374 Specimen: [id number] Received: 12/22/23 Status: SHELLEY Cadena Num: [id number] Spec Type: Surgical Subm Dr: Michel Robbins MD FACS Tissues: A Skin-Other than Cyst, tag, debridement or plastic repair (LT EAR LESION) Procedures: HE, Gross/Micro L4 Patient: Celestino Ziegler [id number] (Continued) Signed (signature on file) Jameson Garcia MD 12/23/23 1400 Normal [facility] Insurance Correspondenceon 0 12-03-2023 Insurance Correspondence [id number]#1.00TIFF [facility] Consent for Procedure/Surger yon 11-17-2023 Consent for Procedure/Surgery [id number]#1.00TIF F Normal [facility] Facesheeton 11-17-2023 Facesheet [id number]#1.00TIFF [facility] Ambulatory Visit Summaryon 0 11-16-2023 Ambulatory Visit Summary CELESTINO ZIEGLER :1970 Visit Date:11/16/2023 Ambulatory Visit Instructions Your Care Team Attending Physician - ROSENDO OROURKE, Michel Lee Primary Care Physician - Donna Herrera MD Referring Physician - Donna Herrera MD This Is [...] for choosing us for your care. Normal [facility] Alanine aminotransferase [En zymatic activity/volume] in Serum or PlasmaOrdered By: Qasim Mancilla on 10-28-2023 ALT [Catalytic activity/Vol] 7 U/L 7-52 [facility] Albumin [Mass/volume] in Ser um or Plasma by Bromocresol green (BCG) dye binding methoOrdered By: Qasim Mancilla on 10-28-2023 Albumin BCG dye [Mass/Vol] 3.9 g/dL 3.5-5.7 [facility] Alkaline phosphatase [Enzyma tic activity/volume] in Serum or PlasmaOrdered By: Qasim Mancilla on 10-28-2023 ALP [Catalytic activity/Vol] 57 U/L 34-104 [facility] Aspartate aminotransferase [ Enzymatic activity/volume] in Serum or PlasmaOrdered By: Qasim Mancilla on 10-28-2023 AST [Catalytic activity/Vol] 7 U/L 13-39 [facility] Basophils Auto (Bld) [#/Vol] Ordered By: Qasim Mancilla on 10-28-2023 Basophils (Bld) [#/Vol] 0.0 10*3/uL 0.0-0.2 [facility] Basophils/100 WBC Auto (Bld) Ordered By: Yaziditristian Mancilla on 10-28-2023 Basophils/100 WBC (Bld) 0.3 % . [facility] Bilirubin.total [Mass/volume ] in Serum or PlasmaOrdered By: Qasim Mancilla on 10-28-2023 Bilirubin [Mass/Vol] 0.5 mg/dL 0.3-1.0 [facility] Calcium [Mass/volume] in Ser um or PlasmaOrdered By: Qasim Mancilla on 10-28-2023 Calcium [Mass/Vol] 8.8 mg/dL 8.6-10.3 [facility] Carbon dioxide, total [Moles /volume] in Serum or PlasmaOrdered By: Qasim Mancilla on 10-28-2023 CO2 [Moles/Vol] 27.8 mmol/L 21.0-31.0 [facility] Chloride [Moles/volume] in S felicita or PlasmaOrdered By: Qasim Mancilla on 10-28-2023 Chloride [Moles/Vol] 106 mmol/L 98-107 [facility] Complete Blood Count Auto Di ffon 10-28-2023 Basophils (Bld) [#/Vol] 0.0 10*3/uL Normal 0.0-0.2 [facility] Comment on above: Result Comment: PERF ORMED BY: [place] [address] PATHOLOGIST RIPRAP PLACER MARK ARIAS M.D. Performed By: #### C BC, CMP, PAB #### [address] Basophils/100 WBC (Bld) 0.3 % Normal . [facility] Comment on above: Performed By: #### C BC, CMP, PAB #### [address] Eosinophils (Bld) [#/Vol] 0.0 10*3/uL Normal 0.0-0.45 [facility] Comment on above: Performed By: #### C BC, CMP, PAB #### [place] [address] [place] Eosinophils/100 WBC (Bld) 0.4 % Normal . [facility] Comment on above: Performed By: #### C BC, CMP, PAB #### [address] Erythrocyte distribution width (RBC) [Ratio] 13.4 % Normal 12.0-14.8 [facility] Comment on above: Performed By: #### C BC, CMP, PAB #### [address] Hematocrit (Bld) [Volume fraction] 38.3 % Low 38.8-50.0 [facility] Comment on above: Performed By: #### C BC CMP, PAB #### [address] Hemoglobin (Bld) [Mass/Vol] 12.7 g/dL Low 13.0-17.0 [facility] Comment on above: Performed By: #### C BC, CMP, PAB #### [address] Lymphocytes (Bld) [#/Vol] 2.1 10*3/uL Normal 1.00-4.8 [facility] Comment on above: Performed By: #### C BC CMP, PAB #### [address] Lymphocytes/100 WBC (Bld) 28.7 % Normal . [facility] Comment on above: Performed By: #### C BC, CMP, PAB #### [address] MCH (RBC) [Entitic mass] 30.9 pg Normal 27.5-35.2 [facility] Comment on above: Performed By: #### C BC, CMP, PAB #### [address] MCV (RBC) [Entitic vol] 93.0 fL Normal 83.5-101 [facility] Comment on above: Performed By: #### C BC, CMP, PAB #### [address] Mean Corpuscular HGB Conc 33.3 g/dL Normal 32.5-35.6 [facility] Comment on above: Performed By: #### C BC, CMP, PAB #### [address] Monocytes (Bld) [#/Vol] 0.7 10*3/uL Normal 0.0-0.8 [facility] Comment on above: Performed By: #### C BC, CMP, PAB #### [facility] [address] [id number] [place] Monocytes/100 WBC (Bld) 9.6 % Normal . [facility] Comment on above: Performed By: #### C BC, CMP, PAB #### [facility] [address] [id number] [place] Neutrophils (Bld) [#/Vol] 4.5 10*3/uL Normal 1.8-7.7 [facility] Comment on above: Performed By: #### C BC, CMP, PAB #### [facility] [address] [id number] [place] Neutrophils/100 WBC (Bld) 61.0 % Normal . [facility] Comment on above: Performed By: #### C BC, CMP, PAB #### [facility] [address] [place] [address] [place] NRBC% 0.1 /100{WBC} Normal 0-0.5 [facility] Comment on above: Performed By: #### C BC, CMP, PAB #### [facility] [address] [place] [id number] [place] Platelet mean volume (Bld) [Entitic vol] 8.7 fL Normal 6.6-10.1 [facility] Comment on above: Performed By: #### C BC, CMP, PAB #### [facility] [address] [place] [address] [place] Platelets (Bld) [#/Vol] 227 10*3/uL Normal 150-450 [facility] Comment on above: Performed By: #### C BC, CMP, PAB #### [facility] [address] [place] [address] [place] RBC (Bld) [#/Vol] 4.12 10*6/uL Normal 3.90-5.60 [facility] Comment on above: Performed By: #### C BC, CMP, PAB #### [facility] [address] [place] [address] [place] WBC (Bld) [#/Vol] 7.4 10*3/uL Normal 4.1-10.5 [facility] Comment on above: Performed By: #### C BC, CMP, PAB #### [address] Comprehensive Metabolic Pane roque 10-28-2023 Albumin [Mass/Vol] 3.9 g/dL Normal 3.5-5.7 [facility] Comment on above: Performed By: #### C BC, CMP, PAB #### [address] Albumin/Globulin [Mass ratio] 1.7 {ratio} Normal [facility] Comment on above: Performed By: #### C BC, CMP, PAB #### [address] ALP [Catalytic activity/Vol] 57 U/L Normal 34-104 [facility] Comment on above: Performed By: #### C BC, CMP, PAB #### [address] ALT [Catalytic activity/Vol] 7 U/L Normal 7-52 [facility] Comment on above: Performed By: #### C BC, CMP, PAB #### [address] Anion gap [Moles/Vol] 11.6 mmol/L Normal 6.0-15.0 [facility] Comment on above: Performed By: #### C BC, CMP, PAB #### [address] AST [Catalytic activity/Vol] 7 U/L Low 13-39 [facility] Comment on above: Performed By: #### C BC, CMP, PAB #### [address] Bilirubin [Mass/Vol] 0.5 mg/dL Normal 0.3-1.0 [facility] Comment on above: Performed By: #### C BC, CMP, PAB #### [address] Calcium [Mass/Vol] 8.8 mg/dL Normal 8.6-10.3 [facility] Comment on above: Performed By: #### C BC, CMP, PAB #### [facility] [address] [place] [address] [place] Chloride [Moles/Vol] 106 mmol/L Normal 98-107 [facility] Comment on above: Performed By: #### C BC, CMP, PAB #### [facility] [address] [place] [address] [place] CO2 [Moles/Vol] 27.8 mmol/L Normal 21.0-31.0 [facility] Comment on above: Performed By: #### C BC, CMP, PAB #### [facility] [address] Creatinine [Mass/Vol] 0.89 mg/dL Normal 0.70-1.30 [facility] Comment on above: Performed By: #### C BC, CMP, PAB #### [facility] [address] [place] [address] [place] Creatinine Clr Calc Pharmacy 103.39 Normal [facility] Comment on above: Performed By: #### C BC, CMP, PAB #### [facility] [address] [place] [address] [place] GFR/1.73 sq M.predicted MDRD (S/P/Bld) [Vol rate/Area] mL/min/{1.73_m2} Normal [facility] Comment on above: Performed By: #### C BC, CMP, PAB #### [facility] [address] [place] [address] [place] Globulin (S) [Mass/Vol] 2.3 g/dL Normal [facility] Comment on above: Performed By: #### C BC, CMP, PAB #### [facility] [address] [place] [address] [place] Glucose [Mass/Vol] 109 mg/dL High 70-100 [facility] Comment on above: Result Comment: [place] Glucose Reference Range is dependent on time and content of last meal. Glucose of more than 200 mg/dL in a nonstressed, ambulatory subject supports the diagnosis of Diabetes Mellitus. ADA recommended reference range Performed By: #### C BC, CMP, PAB #### [facility] [address] [place] [id number] [place] Potassium [Moles/Vol] 4.4 mmol/L Normal 3.5-5.1 [facility] Comment on above: Performed By: #### C BC, CMP, PAB #### [facility] [address] [place] [id number] [place] Protein [Mass/Vol] 6.2 g/dL Low 6.4-8.9 [facility] Comment on above: Performed By: #### C BC, CMP, PAB #### [facility] [address] [place] [id number] [place] Sodium [Moles/Vol] 141 mmol/L Normal 136-145 [facility] Comment on above: Performed By: #### C BC, CMP, PAB #### [facility] [address] [place] [phone] [place] Urea nitrogen [Mass/Vol] 26 mg/dL High 7-25 [facility] Comment on above: Performed By: #### C BC, CMP, PAB #### [facility] [address] [place] [id number] [place] Creatinine [Mass/volume] in Serum or PlasmaOrdered By: Qasim Mancilla on 10-28-2023 Creatinine [Mass/Vol] 0.89 mg/dL 0.70-1.30 [facility] Eosinophils Auto (Bld) [#/Vo l]Ordered By: Qasim Mancilla on 10-28-2023 Eosinophils (Bld) [#/Vol] 0.0 10*3/uL 0.0-0.45 [facility] Eosinophils/100 WBC Auto (Bl d)Ordered By: Qasim Mancilla on 10-28-2023 Eosinophils/100 WBC (Bld) 0.4 % . [facility] Erythrocyte distribution wid th Auto (RBC) [Ratio]Ordered By: Qasim Mancilla on 10-28-2023 Erythrocyte distribution width (RBC) [Ratio] 13.4 % 12.0-14.8 [facility] Globulin Calc (S) [Mass/Vol] Ordered By: Qasim Mancilla on 10-28-2023 Globulin (S) [Mass/Vol] 2.3 g/dL [facility] Glucose [Mass/volume] in Ser um or PlasmaOrdered By: Qasim Mancilla on 10-28-2023 Glucose [Mass/Vol] 109 mg/dL 70-100 [facility] Comment on above: ADA recommended refe rence rangeRandom Glucose Reference Range is dependent on time and content of last meal. Glucose of more than 200 mg/dL in a nonstressed, ambulatory subject supports the diagnosis of Diabetes Mellitus. Hematocrit Auto (Bld) [Volum e fraction]Ordered By: Qasim Mancilla on 10-28-2023 Hematocrit (Bld) [Volume fraction] 38.3 % 38.8-50.0 [facility] Hemoglobin [Mass/volume] in BloodOrdered By: Qasim Mancilla on 10-28-2023 Hemoglobin (Bld) [Mass/Vol] 12.7 g/dL 13.0-17.0 [facility] Leukocytes [#/volume] correc deon for nucleated erythrocytes in Blood by Automated counOrdered By: Qasim Mancilla on 10-28-2023 WBC corrected for nucl RBC Auto (Bld) [#/Vol] 7.4 10*3/uL 4.1-10.5 [facility] Lymphocytes Auto (Bld) [#/Vo l]Ordered By: Qasim Mancilla on 10-28-2023 Lymphocytes (Bld) [#/Vol] 2.1 10*3/uL 1.00-4.8 [facility] Lymphocytes/100 WBC Auto (Bl d)Ordered By: Qasim Mancilla on 10-28-2023 Lymphocytes/100 WBC (Bld) 28.7 % . [facility] MCH Auto (RBC) [Entitic mass ]Ordered By: Qasim Mancilla on 10-28-2023 MCH (RBC) [Entitic mass] 30.9 pg 27.5-35.2 [facility] MCHC Auto (RBC) [Mass/Vol]Or dered By: Qasim Mancilla on 10-28-2023 MCHC (RBC) [Mass/Vol] 33.3 g/dL 32.5-35.6 [facility] MCV Auto (RBC) [Entitic vol] Ordered By: Qasim Mancilla on 10-28-2023 MCV (RBC) [Entitic vol] 93.0 fL 83.5-101 [facility] Monocytes Auto (Bld) [#/Vol] Ordered By: Qasim Mancilla on 10-28-2023 Monocytes (Bld) [#/Vol] 0.7 10*3/uL 0.0-0.8 [facility] Monocytes/100 WBC Auto (Bld) Ordered By: Qasim Mancilla on 10-28-2023 Monocytes/100 WBC (Bld) 9.6 % . [facility] Neutrophils Auto (Bld) [#/Vo l]Ordered By: Qasim Mancilla on 10-28-2023 Neutrophils (Bld) [#/Vol] 4.5 10*3/uL 1.8-7.7 [facility] Neutrophils/100 WBC Auto (Bl d)Ordered By: Qasim Mancilla on 10-28-2023 Neutrophils/100 WBC (Bld) 61.0 % . [facility] No Panel InformationOrdered By: Qasim Mancilla on 10-28-2023 Estimated GFR (CKD-EPI) > 60.0 mL/Min [facility] Creatinine Clearance (Chem 103.39 [facility] Nucleated erythrocytes [Pres ence] in Blood by Automated countOrdered By: Qasim Mancilla on 10-28-2023 Nucleated RBC Auto Ql (Bld) 0.1 /100{WBC} 0-0.5 [facility] Platelet mean volume Auto (B ld) [Entitic vol]Ordered By: Qasim Mancilla on 10-28-2023 Platelet mean volume (Bld) [Entitic vol] 8.7 fL 6.6-10.1 [facility] Platelets Auto (Bld) [#/Vol] Ordered By: Qasim Mancilla on 10-28-2023 Platelets (Bld) [#/Vol] 227 10*3/uL 150-450 [facility] Potassium [Moles/volume] in Serum or PlasmaOrdered By: Qasim Mancilla on 10-28-2023 Potassium [Moles/Vol] 4.4 mmol/L 3.5-5.1 [facility] Prealbuminon 10-28-2023 Prealbumin [Mass/Vol] 25.1 mg/dL Normal 17.0-34.0 [facility] Comment on above: Result Comment: PERF ORMED BY: [facility] [address] [place] [address] PATHOLOGIST [employer]ACER MARK ARIAS M.D. Performed By: #### C BC, CMP, PAB #### [address] Prealbumin [Mass/volume] in Serum or PlasmaOrdered By: Qasim Mancilla on 10-28-2023 Prealbumin [Mass/Vol] 25.1 mg/dL 17.0-34.0 [facility] Protein [Mass/volume] in Ser um or PlasmaOrdered By: Qasim Mancilla on 10-28-2023 Protein [Mass/Vol] 6.2 g/dL 6.4-8.9 [facility] RBC Auto (Bld) [#/Vol]Ordere d By: Qasim Mancilla on 10-28-2023 RBC (Bld) [#/Vol] 4.12 10*6/uL 3.90-5.60 [facility] Serum or plasma albumin/glob ulin mass ratioOrdered By: Qasim Mancilla on 10-28-2023 Albumin/Globulin [Mass ratio] 1.7 {ratio} [facility] Serum or plasma anion gap de terminationOrdered By: Qasim Mancilla on 10-28-2023 Anion gap [Moles/Vol] 11.6 mmol/L 6.0-15.0 [facility] Sodium [Moles/volume] in Ser um or PlasmaOrdered By: Qasim Mancilla on 10-28-2023 Sodium [Moles/Vol] 141 mmol/L 136-145 [facility] Urea nitrogen [Mass/volume] in Serum or PlasmaOrdered By: Qasim Mancilla on 10-28-2023 Urea nitrogen [Mass/Vol] 26 mg/dL 7-25 [facility] WBC Auto (Bld) [#/Vol]Ordere d By: Qasim Mancilla on 10-28-2023 WBC (Bld) [#/Vol] 7.4 10*3/uL 4.1-10.5 [facility] BASIC METABOLIC PANLon 10-24 Anion gap [Moles/Vol] 9 mmol/L Normal 5-15 [facility] Comment on above: Performed By: #### H H, BMP ####[facility] ([id number])[address], [address] [place] [address] Calcium [Mass/Vol] 9.1 mg/dL Normal 8.5-10.5 [facility] Comment on above: Performed By: #### H H, BMP ####[facility] ([id number])[address], [address] [place] [address] Chloride [Moles/Vol] 104 mmol/L Normal 98-109 [facility] Comment on above: Performed By: #### H H, BMP ####[facility] ([id number])[address], [address] [place] [address] CO2 [Moles/Vol] 28 mmol/L Normal 22-32 [facility] Comment on above: Performed By: #### H H, BMP ####[facility] ([id number])[address] [address] [place] [address] Creatinine [Mass/Vol] 0.69 mg/dL Normal 0.60-1.30 [facility] Comment on above: Result Comment: METH OD TRACEABLE TO IDMS STANDARD Performed By: #### H H, BMP ####[facility] ([id number])[address] [address] [place] [address] eGFR (CKD-EPI) NON-RACE DEPENDENT >90 Normal >59 [facility] Comment on above: Result Comment: Reported eGFR is based on the CKD-EPI 2020 equation that does not use a race coefficient. Performed By: #### H H, BMP ####[facility] ([id number])[address] [place] [address] Glucose [Mass/Vol] 102 mg/dL High 65-99 [facility] Comment on above: Performed By: #### H H, BMP ####[facility] ([id number])[address] [place] [address] Potassium [Moles/Vol] 3.9 mmol/L Normal 3.5-5.0 [facility] Comment on above: Performed By: #### H H, BMP ####[facility] ([id number])[address] [address] [place] [address] Sodium [Moles/Vol] 141 mmol/L Normal 134-146 [facility] Comment on above: Performed By: #### H H, BMP ####[facility] ([id number])[address] [address] [place] [address] Urea nitrogen [Mass/Vol] 20 mg/dL Normal 5-23 [facility] Comment on above: Performed By: #### H H, BMP ####[facility] ([id number])[address] [address] [address] HGB AND HCTon 10-25-2023 Hematocrit (Bld) [Volume fraction] 36.2 % Low 39-49 [facility] Comment on above: Performed By: #### H H, BMP ####[facility] ([id number])[address] [address], [place] [address] Hemoglobin (Bld) [Mass/Vol] 12.1 g/dL Low 13.0-17.0 [facility] Comment on above: Performed By: #### H H, BMP ####[facility] ([id number])[address] [address], [place] [address] BASIC METABOLIC PANLon 10-23 Anion gap [Moles/Vol] 10 mmol/L Normal 5-15 [facility] Comment on above: Performed By: #### H H, BMP ####[facility] ([id number])[address] [place] [address] Calcium [Mass/Vol] 8.7 mg/dL Normal 8.5-10.5 [facility] Comment on above: Performed By: #### H H, BMP ####[facility] ([id number])[address] [address] [place] [address] Chloride [Moles/Vol] 107 mmol/L Normal 98-109 [facility] Comment on above: Performed By: #### H H, BMP ####[facility] ([id number])[address] [address] CO2 [Moles/Vol] 28 mmol/L Normal 22-32 [facility] Comment on above: Performed By: #### H H, BMP ####[facility] ([id number])[address] [address] Creatinine [Mass/Vol] 0.73 mg/dL Normal 0.60-1.30 [facility] Comment on above: Result Comment: METH OD TRACEABLE TO IDMS STANDARD Performed By: #### H H, BMP ####[facility] ([id number])[address] [place] [address] eGFR (CKD-EPI) NON-RACE DEPENDENT >90 Normal >59 [facility] Comment on above: Result Comment: Reported eGFR is based on the CKD-EPI 2020 equation that does not use a race coefficient. Performed By: #### H H, BMP ####[facility] ([id number])[address] [address] [place] [address], [place] [address] Glucose [Mass/Vol] 94 mg/dL Normal 65-99 [facility] Comment on above: Performed By: #### H H, BMP ####[facility] ([id number])[address] [address] Potassium [Moles/Vol] 4.1 mmol/L Normal 3.5-5.0 [facility] Comment on above: Performed By: #### H H, BMP ####[facility] ([id number])[address] [address] Sodium [Moles/Vol] 145 mmol/L Normal 134-146 [facility] Comment on above: Performed By: #### H H, BMP ####[facility] ([id number])[address] [address] Urea nitrogen [Mass/Vol] 20 mg/dL Normal 5-23 [facility] Comment on above: Performed By: #### H H, BMP ####[facility] ([id number])[address] [address] HGB AND HCTon 10-24-2023 Hematocrit (Bld) [Volume fraction] 35.0 % Low 39-49 [facility] Comment on above: Performed By: #### H H, BMP ####[facility] ([id number])[address] [address] Hemoglobin (Bld) [Mass/Vol] 11.9 g/dL Low 13.0-17.0 [facility] Comment on above: Performed By: #### H H, BMP ####[facility] ([id number])[address] [place] [address] BASIC METABOLIC PANLon 10-22 Anion gap [Moles/Vol] 6 mmol/L Normal 5-15 [facility] Comment on above: Performed By: #### H H, BMP ####[facility] ([id number])[address] [address] [address] Calcium [Mass/Vol] 8.4 mg/dL Low 8.5-10.5 [facility] Comment on above: Performed By: #### H H, BMP ####[facility] ([id number])[address] [place] [address] Chloride [Moles/Vol] 106 mmol/L Normal 98-109 [facility] Comment on above: Performed By: #### H H, BMP ####[facility] ([id number])[address] [place] [address] CO2 [Moles/Vol] 29 mmol/L Normal 22-32 [facility] Comment on above: Performed By: #### H H, BMP ####[facility] ([id number])[address] [address] [address] Creatinine [Mass/Vol] 0.76 mg/dL Normal 0.60-1.30 [facility] Comment on above: Result Comment: METH OD TRACEABLE TO IDMS STANDARD Performed By: #### H H, BMP ####[facility] ([id number])[address] [address], [place] [address] eGFR (CKD-EPI) NON-RACE DEPENDENT >90 Normal >59 [facility] Comment on above: Result Comment: Reported eGFR is based on the CKD-EPI 2021 equation that does not use a race coefficient. Performed By: #### H H, BMP ####[facility] ([id number])[address] [address], [place] [address] Glucose [Mass/Vol] 99 mg/dL Normal 65-99 [facility] Comment on above: Performed By: #### H H, BMP ####[facility] ([id number])[address] [address] [address] Potassium [Moles/Vol] 4.1 mmol/L Normal 3.5-5.0 [facility] Comment on above: Performed By: #### H H, BMP ####[facility] ([id number])[address] [address] [place] [address] Sodium [Moles/Vol] 141 mmol/L Normal 134-146 [facility] Comment on above: Performed By: #### H H, BMP ####[facility] ([id number])[address] [address] [place] [address] Urea nitrogen [Mass/Vol] 15 mg/dL Normal 5-23 [facility] Comment on above: Performed By: #### H H, BMP ####[facility] ([id number])[address] [address] HGB AND HCTon 10-23-2023 Hematocrit (Bld) [Volume fraction] 36.0 % Low 39-49 [facility] Comment on above: Performed By: #### H H, BMP ####[facility] ([id number])[address] [address] Hemoglobin (Bld) [Mass/Vol] 12.0 g/dL Low 13.0-17.0 [facility] Comment on above: Performed By: #### H H, BMP ####[facility] ([id number])[address] [address] MR LUMBAR SPINE WO CONTon MR LUMBAR [...] Avitia MD on 10/23/2023 2:26 PM Normal [facility] BASIC METABOLIC PANLon 10-21 Anion gap [Moles/Vol] 5 mmol/L Normal 5-15 [facility] Comment on above: Performed By: #### H H, BMP ####[facility] ([id number])[address], [place] [address] Calcium [Mass/Vol] 8.5 mg/dL Normal 8.5-10.5 [facility] Comment on above: Performed By: #### H H, BMP ####[facility] ([id number])[address], [place] [address] Chloride [Moles/Vol] 108 mmol/L Normal 98-109 [facility] Comment on above: Performed By: #### H H, BMP ####[facility] ([id number])[address], [place] [address] CO2 [Moles/Vol] 28 mmol/L Normal 22-32 [facility] Comment on above: Performed By: #### H H, BMP ####[facility] ([id number])[address], [place] [address] Creatinine [Mass/Vol] 0.77 mg/dL Normal 0.60-1.30 [facility] Comment on above: Result Comment: METH OD TRACEABLE TO IDMS STANDARD Performed By: #### H H, BMP ####[facility] ([id number])[address] [address] [place] [address] eGFR (CKD-EPI) NON-RACE DEPENDENT >90 Normal >59 [facility] Comment on above: Result Comment: Reported eGFR is based on the CKD-EPI 2020 equation that does not use a race coefficient. Performed By: #### H H, BMP ####[facility] ([id number])[address] [address] [place] [address] Glucose [Mass/Vol] 112 mg/dL High 65-99 [facility] Comment on above: Performed By: #### H H, BMP ####[facility] ([id number])[address] [address] [place] [address] Potassium [Moles/Vol] 4.6 mmol/L Normal 3.5-5.0 [facility] Comment on above: Performed By: #### H H, BMP ####[facility] ([id number])[address] [address] Sodium [Moles/Vol] 141 mmol/L Normal 134-146 [facility] Comment on above: Performed By: #### H H, BMP ####[facility] ([id number])[address] [address] Urea nitrogen [Mass/Vol] 12 mg/dL Normal 5-23 [facility] Comment on above: Performed By: #### H H, BMP ####[facility] ([id number])[address] [address] [place] [address] [place] FLUORO GUIDANCE SPINAL PU NCTURE OPERATIVEon [...] Vitor Mirza on 10/22/2023 12:33 PM Normal [facility] HGB AND HCTon 10-22-2023 Hematocrit (Bld) [Volume fraction] 37.0 % Low 39-49 [facility] Comment on above: Performed By: #### H H, BMP #### [facility] ([id number]) [address] [facility] [address] [place] [address] Hemoglobin (Bld) [Mass/Vol] 12.6 g/dL Low 13.0-17.0 [facility] Comment on above: Performed By: #### H H, BMP #### [facility] ([id number]) [address] [place] [address] Bacteria identified Cx Nom ( U)on 10-09-2023 Service comment (Unsp spec) [Interp] NO GROWTH AT <1000 CFU/mL [facility] ABO Rh Repeaton 10-08-2023 ABO O [facility] Rh Nom (Bld) Positive [facility] APTTon 10-08-2023 aPTT Coag (PPP) [Time] 40 s High [facility] BASIC METABOLIC PANLon 10-08 Anion gap [Moles/Vol] 9 mmol/L Normal 5-15 [facility] Comment on above: Performed By: #### C BCA, BMP, PINR, 55403-2 #### [facility] ([id number]) [address] [place] [address] Calcium [Mass/Vol] 9.4 mg/dL Normal 8.5-10.5 [facility] Comment on above: Performed By: #### C BCA, BMP, PINR, 64523-6 #### [facility] ([id number]) [address], [address] [place] [address] Chloride [Moles/Vol] 104 mmol/L Normal 98-109 [facility] Comment on above: Performed By: #### C BCA, BMP, PINR, 07406-6 #### [facility] ([id number]) [address] [place] [address] CO2 [Moles/Vol] 28 mmol/L Normal 22-32 [facility] Comment on above: Performed By: #### C BCA, BMP, PINR, 71160-6 #### [facility] ([id number]) [address] [place] [address] Creatinine [Mass/Vol] 0.95 mg/dL Normal 0.60-1.30 [facility] Comment on above: Result Comment: METH OD TRACEABLE TO IDMS STANDARD Performed By: #### C BCA, BMP, PINR, 56822-8 #### [facility] ([id number]) [address] [place] [address] eGFR (CKD-EPI) NON-RACE DEPENDENT >90 Normal >59 [facility] Comment on above: Result Comment: Reported eGFR is based on the CKD-EPI 2020 equation that does not use a race coefficient. Performed By: #### C BCA, BMP, PINR, 80849-2 #### [facility] ([id number]) [address] [place] [address] Glucose [Mass/Vol] 96 mg/dL Normal 65-99 [facility] Comment on above: Performed By: #### C BCA, BMP, PINR, 65228-6 #### [facility] ([id number]) [address], [address] [place] [address] Potassium [Moles/Vol] 4.1 mmol/L Normal 3.5-5.0 [facility] Comment on above: Performed By: #### C BCA, BMP, PINR, 22591-4 #### [facility] ([id number]) [address] [place] [address] Sodium [Moles/Vol] 141 mmol/L Normal 134-146 [facility] Comment on above: Performed By: #### C BCA, BMP, PINR, 58986-0 #### [facility] ([id number]) [address] [place] [address] Urea nitrogen [Mass/Vol] 13 mg/dL Normal 5-23 [facility] Comment on above: Performed By: #### C BCA, BMP, PINR, 01461-6 #### [facility] ([id number]) [address] [place] [address] Basic Metabolic Panelon 09-17 Anion gap [Moles/Vol] 9 mmol/L 5 - 15 mmol/L [facility] Calcium [Mass/Vol] 9.4 mg/dL 8.5 - 10. 5 mg/dL [facility] Chloride [Moles/Vol] 104 mmol/L 98 - 10 9 mmol/L [facility] CO2 [Moles/Vol] 28 mmol/L 22 - 32 mmol/L [facility] Creatinine [Mass/Vol] 0.95 mg/dL 0.60 - 1.30 mg/dL [facility] Comment on above: METHOD TRACEABLE TO IDMS STANDARD eGFR (CKD-EPI)non-race dependent - PINF [facility] Comment on above: Reported eGFR is based on the CKD-EPI 2020 equation that does not use a race coefficient. Glucose [Mass/Vol] 96 mg/dL 65 - 99 mg/dL [facility] Potassium [Moles/Vol] 4.1 mmol/L 3.5 - 5.0 mmol/L [facility] Sodium [Moles/Vol] 141 mmol/L 134 - 146 mmol/L [facility] Urea nitrogen [Mass/Vol] 13 mg/dL 5 - 23 mg/dL [facility] CBC AND AUTO DIFFon 10-08-19 ABSOLUTE BASOPHIL 0.0 X10E9/L Normal 0.0-0.2 [facility] Comment on above: Performed By: #### C BCA, BMP, PINR, 46338-6 #### [facility] ([id number]) [address] [place] [address] ABSOLUTE NEUTROPHIL 4.2 X10E9/L Normal 1.5-6.6 [facility] Comment on above: Performed By: #### C BCA, BMP, PINR, 59356-4 #### [facility] ([id number]) [address] [place] [address] Basophils/100 WBC (Bld) 0.7 % Normal [facility] Comment on above: Performed By: #### C BCA, BMP, PINR, 03818-1 #### [facility] ([id number]) [address] [place] [address] Eosinophils (Bld) [#/Vol] 0.1 10*3/uL Normal 0.0-0.4 [facility] Comment on above: Performed By: #### C BCA, BMP, PINR, 10911-2 #### [facility] ([id number]) [address] [place] [address] Eosinophils/100 WBC (Bld) 1.1 % Normal [facility] Comment on above: Performed By: #### C BCA, BMP, PINR, 27098-9 #### [facility] ([id number]) [address] [place] [address] Erythrocyte distribution width (RBC) [Ratio] 14.0 % Normal 11.5-15.0 [facility] Comment on above: Performed By: #### C BCA, BMP, PINR, 94869-9 #### [facility] ([id number]) [address] [place] [address] Hematocrit (Bld) [Volume fraction] 39.4 % Normal 39-49 [facility] Comment on above: Performed By: #### C BCA, BMP, PINR, 32442-4 #### [facility] ([id number]) [address] [place] [address] Hemoglobin (Bld) [Mass/Vol] 13.3 g/dL Normal 13.0-17.0 [facility] Comment on above: Performed By: #### C BCA, BMP, PINR, 20097-8 #### [facility] ([id number]) [address], [facility] [address] [place] [address] Lymphocytes (Bld) [#/Vol] 2.2 10*3/uL Normal 1.0-3.5 [facility] Comment on above: Performed By: #### C BCA, BMP, PINR, 87510-8 #### [facility] ([id number]) [address], [facility] [address] [place] [address] Lymphocytes/100 WBC (Bld) 31.4 % Normal [facility] Comment on above: Performed By: #### C BCA, BMP, PINR, 31562-7 #### [facility] ([id number]) [address], [address] [place] [address] MCH (RBC) [Entitic mass] 31.2 pg Normal 27-34 [facility] Comment on above: Performed By: #### C BCA, BMP, PINR, 19908-4 #### [facility] ([id number]) [address], [address] [place] [address] MCHC (RBC) [Mass/Vol] 33.7 g/dL Normal 32-36 [facility] Comment on above: Performed By: #### C BCA, BMP, PINR, 00821-3 #### [facility] ([id number]) [address], [address] [place] [address] MCV (RBC) [Entitic vol] 93 fL Normal 80-100 [facility] Comment on above: Performed By: #### C BCA, BMP, PINR, 65441-0 #### [facility] ([id number]) [address], [address] [place] [address] Monocytes (Bld) [#/Vol] 0.5 10*3/uL Normal 0-0.9 [facility] Comment on above: Performed By: #### C BCA, BMP, PINR, 72964-6 #### [facility] ([id number]) [address], [address] [place] [address] Monocytes/100 WBC (Bld) 7.2 % Normal [facility] Comment on above: Performed By: #### C BCA, BMP, PINR, 25597-9 #### [facility] ([id number]) [address], [address] [place] [address] Neutrophils/100 WBC (Bld) 59.6 % Normal [facility] Comment on above: Performed By: #### C BCA, BMP, PINR, 85351-4 #### [facility] ([id number]) [address], [address] [place] [address] Platelet mean volume (Bld) [Entitic vol] 9.1 fL Normal 7-12 [facility] Comment on above: Performed By: #### C BCA, BMP, PINR, 24238-6 #### [facility] ([id number]) [address], [address] [place] [address] Platelets (Bld) [#/Vol] 212 10*3/uL Normal 150-450 [facility] Comment on above: Performed By: #### C BCA, BMP, PINR, 78574-0 #### [facility] ([id number]) [address], [address] [place] [address] RBC COUNT 4.25 X10E12/L Normal 4.10-5.70 [facility] Comment on above: Performed By: #### C BCA, BMP, PINR, 29959-0 #### [facility] ([id number]) [address], [address] [place] [address] WBC (Bld) [#/Vol] 7.1 10*3/uL Normal 4.0-11.0 [facility] Comment on above: Performed By: #### C BCA, BMP, PINR, 21470-1 #### [facility] ([id number]) [address], [address] [place] [address] CBC auto differentialon 09-17 Basophils (Bld) [#/Vol] 0.0 10*3/uL [facility] Basophils/100 WBC (Bld) 0.7 % [facility] Eosinophils (Bld) [#/Vol] 0.1 10*3/uL [facility] Eosinophils/100 WBC (Bld) 1.1 % [facility] Erythrocyte distribution width (RBC) [Ratio] 14.0 % 11.5 - 15.0 % [facility] Hematocrit (Bld) [Volume fraction] 39.4 % 39 - 49 % [facility] Hemoglobin (Bld) [Mass/Vol] 13.3 g/dL 13.0 - 17.0 g/dL [facility] Lymphocytes (Bld) [#/Vol] 2.2 10*3/uL [facility] Lymphocytes/100 WBC (Bld) 31.4 % [facility] MCH (RBC) [Entitic mass] 31.2 pg 27 - 34 pg [facility] MCHC (RBC) [Mass/Vol] 33.7 g/dL 32 - 3 6 g/dL [facility] MCV (RBC) [Entitic vol] 93 fL 80 - 100 fL [facility] Monocytes (Bld) [#/Vol] 0.5 10*3/uL [facility] Monocytes/100 WBC (Bld) 7.2 % [facility] Neutrophils (Bld) [#/Vol] 4.2 10*3/uL [facility] Neutrophils/100 WBC (Bld) 59.6 % [facility] Platelet mean volume (Bld) [Entitic vol] 9.1 fL 7 - 12 fL [facility] Platelets (Bld) [#/Vol] 212 10*3/uL [facility] RBC (Bld) [#/Vol] 4.25 10*6/uL [facility] WBC corrected for nucl RBC Auto (Bld) [#/Vol] 7.1 [facility] ECG 12 leadon 10-08-2023 TRACEMASTERVUE [facility] No Panel Informationon 10-08 [facility] PROTIME AND INRon 10-08-2023 INR Coag (PPP) [Relative time] 1.0 {INR} Normal 0.8-1.1 [facility] Comment on above: Performed By: #### C CRUZ MAYEN, PINR, 27791-3 #### [facility] ([id number]) [address], [address] [place] [address] PT Coag (PPP) [Time] 11.1 s Normal 9.8-13.2 [facility] Comment on above: Performed By: #### C FAHEEM, BMP, PINR, 77805-8 #### [facility] ([id number]) [address], [address] [place] [address] Protime & INRon 10-08-2023 INR Coag (PPP) [Relative time] 1.0 {INR} [facility] PT Coag (PPP) [Time] 11.1 s [facility] Type and screenon 10-08-2023 ABO O [facility] Rh Nom (Bld) Positive [facility] URINALYSISon 10-08-2023 Bilirubin Ql (U) Negative Normal NEG [facility] BLOOD/HGB Negative Normal NEG [facility] Color (U) YELLOW Normal YELLOW [facility] Glucose Ql (U) Negative Normal NEG [facility] Ketones Ql (U) Negative Normal NEG [facility] Leukocyte esterase Test strip Ql (U) Negative Normal NEG [facility] Nitrite Ql (U) Negative Normal NEG [facility] pH (U) 7.5 [pH] Normal 5.0-8.5 [facility] Protein Ql (U) Negative Normal NEG [facility] Specific gravity (U) [Rel density] 1.010 Normal 1.003-1.03 5 [facility] TURBIDITY CLEAR Normal CLEAR [facility] Urobilinogen (U) [Mass/Vol] mg/dL Normal <1.1 [facility] URINE CULTUREon 10-08-2023 Bacteria identified Cx Nom (U) CULTURE RESULTS NO GROWTH AT <1000 CFU/mL Normal [facility] Comment on above: Performed By: #### 6 30-4 #### [facility] ([id number]) [address] [place] [address], [address] [place] [address] Urinalysison 10-08-2023 Bilirubin Ql (U) Negative Negative^N egative [facility] Color (U) YELLOW YELLOW^YEL LOW [facility] Glucose (U) [Mass/Vol] Negative Negative^N egative mg/dL [facility] Hemoglobin Auto test strip Ql (U) Negative Negative^N egative [facility] Ketones (U) [Mass/Vol] Negative Negative^N egative mg/dL [facility] Leukocyte esterase Auto test strip Ql (U) Negative Negative^N egative [facility] Nitrite Auto test strip Ql (U) Negative Negative^N egative [facility] pH (U) 7.5 [pH] 5.0 - 8.5 [facility] Protein (U) [Mass/Vol] Negative Negative^N egative mg/dL [facility] Specific gravity Refractometry automated (U) [Rel density] 1.010 1.003 - 1.035 [facility] Turbidity Ql (U) CLEAR CLEAR^GERONIMO R [facility] Urobilinogen Qn (U) NINF [facility] aP[facility] Coag (PPP) [Time]on aPTT Coag (Bld) [Time] 40 s High 26-37 [facility] Comment on above: Performed By: #### C BCA, BMP, PINR, 45492-4 #### [facility] ([id number]) [address] [place] [address] Interpretation and review of laboratory results Abnormal [facility] Physician Referralon 024 Physician Referral [phone] [id number] F Normal [facility] XR Chest PA and Lateralon Brenden Zapien [...] Brenden Zapien MD on 09/23/2023 4:11 PM [facility] Radiology Study observation (narrative) [facility] XR Chest PA and LateralOrder ed By: Brenden Zapien on 09-23-2023 [facility] Work Phone: XR SPINE LUMB [...] Rodriguez MD on 09/03/2023 5:22 AM Normal [facility] XR lumbar spine AP/LAT/FLX/E XTon 05-24-2023 XR lumbar spine AP/LAT/FLX/EXT [place] [address] XRay Report Signed Patient: Celestino Ziegler MR#: [id number] : 1970 Acct:[id number] Age/Sex: 52 / M ADM Date: 05/24/23 Loc: XD Room: Type: [facility] Attending Dr: Trino Cadet MD Copies to: [...] Mesfin Snell M.D.05/24/2023 8:03 PM Dictation Location: [place] [address] Transcribed By: [facility] 05/24/232002 Dictated By: Mesfin Snell II, MD 05/24/232001 Signed By: 05/24/232002 Normal [facility] INSULINon 09-04-2022 Insulin 6.5 uIU/mL Normal 2.6-24.9 [facility] Comment on above: Performed By: #### I NSULIN #### [facility] [address] [place] [address] Dr. Randall Ayoub CBC AUTO DIFFon 09-03-2022 BASO # 0.0 103/ul Normal 0.0-0.1 [facility] Comment on above: Performed By: #### C BC #### [facility] [address] [place] [address] Dr. Randall Ayoub Basophils/100 WBC (Bld) 0.6 % Normal 0.2-2.0 [facility] Comment on above: Performed By: #### C BC #### [facility] [address] [place] [address] Dr. Randall Ayoub EO # 0.2 103/ul Normal 0.0-0.7 [facility] Comment on above: Performed By: #### C BC #### [facility] [address] [place] [address] Dr. Randall Ayoub Eosinophils/100 WBC (Bld) 3.2 % Normal 0.9-7.0 [facility] Comment on above: Performed By: #### C BC #### [facility] [address] [place] [address] Dr. Randall Ayoub Erythrocyte distribution width (RBC) [Ratio] 13.8 % Normal 11.0-15.0 [facility] Comment on above: Performed By: #### C BC #### [facility] [address] [place] [address] Dr. Randall Ayobu Hematocrit (Bld) [Volume fraction] 39.5 % Critically low 42.0-54.0 [facility] Comment on above: Performed By: #### C BC #### [facility] [address] [place] [address] Dr. Randall Ayoub Hemoglobin (Bld) [Mass/Vol] 13.0 g/dL Critically low 14.0-18.0 [facility] Comment on above: Performed By: #### C BC #### [facility] [address] [place] [address] Dr. Randall Ayoub IG # 0.00 10e3/ul Normal 0.00-0.03 [facility] Comment on above: Performed By: #### C BC #### [facility] [address] [place] [address] Dr. Randall Ayoub IG % 0.0 % Normal 0.0-0.5 [facility] Comment on above: Performed By: #### C BC #### [facility] [address] [place] [address] Dr. Randall Ayoub LYMPH # 2.3 103/ul Normal 1.2-3.8 [facility] Comment on above: Performed By: #### C BC #### [facility] [address] [place] [address] Dr. Randall Ayoub Lymphocytes/100 WBC (Bld) 35.2 % Normal 20.5-60.0 [facility] Comment on above: Performed By: #### C BC #### [facility] [address] [place] [address] Dr. Randall Ayoub MANUAL DIFF REQ NO Normal [facility] Comment on above: Performed By: #### C BC #### [facility] [address] [place] [address] Dr. Randall Ayoub MCH (RBC) [Entitic mass] 30.8 pg Normal 25.9-34.0 [facility] Comment on above: Performed By: #### C BC #### [facility] [address] [place] [address] Dr. Randall Ayoub MCHC (RBC) [Mass/Vol] 32.9 g/dL Normal 29.9-35.2 [facility] Comment on above: Performed By: #### C BC #### [facility] [address] [place] [address] Dr. Randall Ayoub MCV (RBC) [Entitic vol] 93.6 fL Normal 80.0-94.0 [facility] Comment on above: Performed By: #### C BC #### [facility] [address] [place] [address] Dr. Randall Ayoub MONO # 0.6 103/ul Normal 0.3-0.8 [facility] Comment on above: Performed By: #### C BC #### [facility] [address] [place] [address] Dr. Randall Ayoub Monocytes/100 WBC (Bld) 8.9 % Normal 1.7-12.0 [facility] Comment on above: Performed By: #### C BC #### [facility] [address] [place] [address] Dr. Randall Ayoub NEUT # 3.4 103/ul Normal 1.4-6.5 [facility] Comment on above: Performed By: #### C BC #### [facility] [address] [place] [address] Dr. Randall Ayoub Neutrophils/100 WBC (Bld) 52.1 % Normal 43.0-75.0 [facility] Comment on above: Performed By: #### C BC #### [facility] [address] [place] [address] Dr. Randall Ayoub Platelet mean volume (Bld) [Entitic vol] 10.7 fL Normal 9.5-13.5 [facility] Comment on above: Performed By: #### C BC #### [facility] [address] [place] [address] Dr. Randall Ayoub PLT 186 103/ul Normal 150-450 [facility] Comment on above: Performed By: #### C BC #### [facility] [address] [place] [address] Dr. Randall Ayoub RBC 4.22 106/ul Critically low 4.70-6.10 [facility] Comment on above: Performed By: #### C BC #### [facility] [address] [place] [address] Dr. Randall Ayoub WBC 6.6 103/ul Normal 4.0-11.0 [facility] Comment on above: Performed By: #### C BC #### [facility] [address] [place] [address] Dr. Randall Ayoub GLYCOHEMOGLOBIN A1Con 2022 ADA RECOMMENDATION SEE BELOW Normal [facility] Comment on above: Result Comment: ADA RECOMMENDED LIMIT 4.0 - 6.0 ADA THERAPEUTIC TARGET < 7.0 ACTION SUGGESTED > 7.0 Performed By: #### A 1C #### [facility] [address] [place] [address] Dr. Randall Ayoub Glucose [Mass/Vol] 114 mg/dL Normal [facility] Comment on above: Performed By: #### A 1C #### [facility] [address] [place] [address] [address] Randall Ayoub HbA1c (Bld) [Mass fraction] 5.6 % Normal 4.5-6.2 [facility] Comment on above: Performed By: #### A 1C #### [facility] [address] [place] [address] [address] Randall Ayoub LIPID PROFILEon 09-03-2022 CHOL-HDL RATIO NORM SEE BELOW Normal [facility] Comment on above: Result Comment: 3.3 - 4.4 LOW RISK 4.4 - 7.1 AVERAGE RISK 7.1 - 11.0 MODERATE RISK >11.0 HIGH RISK Performed By: #### I NSULIN #### [facility] [address] [place] [address] [address] Randall Ayoub Cholesterol [Mass/Vol] 181 mg/dL Normal <=200 [facility] Comment on above: Performed By: #### I NSULIN #### [facility] [address] [place] [address] [address] Randall Ayoub Cholesterol in HDL [Mass/Vol] 47 mg/dL Normal 40-60 [facility] Comment on above: Performed By: #### I NSULIN #### [facility] [address] [place] [address] [address] Randall Ayoub Cholesterol in LDL [Mass/Vol] 113.4 mg/dL Normal [facility] Comment on above: Performed By: #### I NSULIN #### [facility] [address] [place] [address] [address] Randall Ayoub Cholesterol.total/Cho lesterol in HDL [Mass ratio] 3.9 {ratio} Normal [facility] Comment on above: Performed By: #### I NSULIN #### [facility] [address] [place] [address] [address] Randall Ayoub HDL NORMAL > or = 60 mg/dl - LO W CARDIOVASCULAR RISK <40 mg/dl - HIGH CARDIOVASCULAR RISK Normal [facility] Comment on above: Performed By: #### I NSULIN #### [facility] [address] [place] [address] [address] Randall Ayoub LDL CALC NORMAL SEE BELOW Normal [facility] Comment on above: Result Comment: <100 mg/dl OPTIMAL 100 - 129 mg/dl NEAR OR ABOVE OPTIMAL 130 - 159 mg/dl BORDERLINE HIGH 160 - 189 mg/dl HIGH >190 mg/dl VERY HIGH Performed By: #### I NSULIN #### [facility] [address] [place] [address] [address] Randall Ayoub Triglyceride [Mass/Vol] 103 mg/dL Normal <=150 [facility] Comment on above: Performed By: #### I NSULIN #### [facility] [address] [place] [address] Dr. Randall Ayoub VLDL CALC 20.6 mg/dL Normal [facility] Comment on above: Performed By: #### I NSULIN #### [facility] [address] [place] [address] Dr. Randall Ayoub PROF 14(COMP METB)on 023 Albumin [Mass/Vol] 3.8 g/dL Normal 3.4-5.0 [facility] Comment on above: Performed By: #### I NSULIN #### [facility] [address] [place] [address] Dr. Randall Ayoub Albumin/Globulin [Mass ratio] 1.4 {ratio} Normal [facility] Comment on above: Performed By: #### I NSULIN #### [facility] [address] [place] [address] Dr. Randall Ayoub ALP [Catalytic activity/Vol] 72 U/L Normal 46-116 [facility] Comment on above: Performed By: #### I NSULIN #### [facility] [address] [place] [address] Dr. Randall Ayoub ALT [Catalytic activity/Vol] 22 U/L Normal 16-63 [facility] Comment on above: Performed By: #### I NSULIN #### [facility] [address] [place] [address] Dr. Randall Ayoub Anion gap [Moles/Vol] 12.9 mmol/L Normal [facility] Comment on above: Performed By: #### I NSULIN #### [facility] [address] [address] [address] Randall Ayoub AST [Catalytic activity/Vol] 17 U/L Normal 15-37 [facility] Comment on above: Performed By: #### I NSULIN #### [facility] [address] [address] [address] Randall Ayoub Bilirubin [Mass/Vol] 0.5 mg/dL Normal 0.2-1.0 [facility] Comment on above: Performed By: #### I NSULIN #### [facility] [address] [place] [address] Dr. Randall Ayoub Calcium [Mass/Vol] 8.7 mg/dL Normal 8.5-10.1 [facility] Comment on above: Performed By: #### I NSULIN #### [facility] [address] [place] [address] Dr. Randall Ayoub Chloride [Moles/Vol] 108 mmol/L Critically high 98-107 [facility] Comment on above: Performed By: #### I NSULIN #### [facility] [address] [place] [address] Dr. Randall Ayoub CO2 [Moles/Vol] 27.5 mmol/L Normal 21.0-32.0 [facility] Comment on above: Performed By: #### I NSULIN #### [facility] [address] [place] [address] Dr. Randall Ayoub Creatinine [Mass/Vol] 0.92 mg/dL Normal 0.70-1.30 [facility] Comment on above: Performed By: #### I NSULIN #### [facility] [address] [place] [address] Dr. Randall Ayoub EGFR-AF LIBERIAN >60 Normal >=60 [facility] Comment on above: Performed By: #### I NSULIN #### [facility] [address] [place] [address] Dr. Randall Ayoub EGFR-NON AF LIBERIAN >60 Normal >=60 [facility] Comment on above: Performed By: #### I NSULIN #### [facility] [address] [address] [address] Randall Ayoub Globulin (S) [Mass/Vol] 2.7 g/dL Normal [facility] Comment on above: Performed By: #### I NSULIN #### [facility] [address] [address] [address] Randall Ayoub Glucose [Mass/Vol] 96 mg/dL Normal 74-106 [facility] Comment on above: Performed By: #### I NSULIN #### [facility] [address] [address] [address] Randall Ayoub Potassium [Moles/Vol] 4.4 mmol/L Normal 3.5-5.1 [facility] Comment on above: Performed By: #### I NSULIN #### [facility] [address] [place] [address] Dr. Randall Ayoub Protein [Mass/Vol] 6.5 g/dL Normal 6.4-8.2 [facility] Comment on above: Performed By: #### I NSULIN #### [facility] [address] [address] [address] Randall Ayoub Sodium [Moles/Vol] 144 mmol/L Normal 136-145 [facility] Comment on above: Performed By: #### I NSULIN #### [facility] [address] [address] [address] Randall Ayoub Urea nitrogen [Mass/Vol] 23.0 mg/dL Critically high 7.0-18.0 [facility] Comment on above: Performed By: #### I NSULIN #### [facility] [address] [address] [address] Randall Ayoub Urea nitrogen/Creatinine [Mass ratio] 25.0 mg/mg Normal [facility] Comment on above: Performed By: #### I NSULIN #### [facility] [address] [address] [address] Randall Ayoub URIC ACID SERUMon 09-03-2022 Urate [Mass/Vol] 4.2 mg/dL Normal 3.5-7.2 [facility] Comment on above: Performed By: #### I NSULIN #### [facility] [address] [place] [address] Dr. Randall Ayoub CBC AUTO DIFFon 02-03-2022 BASO # 0.0 103/ul Normal 0.0-0.1 [facility] Comment on above: Performed By: #### I NSULIN #### [facility] [address] [place] [address] Dr. Randall Ayoub Basophils/100 WBC (Bld) 0.3 % Normal 0.2-2.0 [facility] Comment on above: Performed By: #### I NSULIN #### [facility] [address] [place] [address] Dr. Randall Ayoub EO # 0.0 103/ul Normal 0.0-0.7 [facility] Comment on above: Performed By: #### I NSULIN #### [facility] [address] [place] [address] Dr. Randall Ayoub Eosinophils/100 WBC (Bld) 0.5 % Critically low 0.9-7.0 [facility] Comment on above: Performed By: #### I NSULIN #### [facility] [address] [place] [address] Dr. Randall Ayoub Erythrocyte distribution width (RBC) [Ratio] 13.4 % Normal 11.0-15.0 [facility] Comment on above: Performed By: #### I NSULIN #### [facility] [address] [place] [address] Dr. Randall Ayoub Hematocrit (Bld) [Volume fraction] 41.7 % Critically low 42.0-54.0 [facility] Comment on above: Performed By: #### I NSULIN #### [facility] [address] [place] [address] Dr. Randall Ayoub Hemoglobin (Bld) [Mass/Vol] 14.0 g/dL Normal 14.0-18.0 [facility] Comment on above: Performed By: #### I NSULIN #### [facility] [address] [place] [address] Dr. Randall Ayoub IG # 0.01 10e3/ul Normal 0.00-0.03 [facility] Comment on above: Performed By: #### I NSULIN #### [facility] [address] [place] [address] Dr. Randall Ayoub IG % 0.3 % Normal 0.0-0.5 [facility] Comment on above: Performed By: #### I NSULIN #### [facility] [address] [place] [address] Dr. Randall Ayoub LYMPH # 1.7 103/ul Normal 1.2-3.8 [facility] Comment on above: Performed By: #### I NSULIN #### [facility] [address] [place] [address] Dr. Randall Ayoub Lymphocytes/100 WBC (Bld) 43.7 % Normal 20.5-60.0 [facility] Comment on above: Performed By: #### I NSULIN #### [facility] [address] [place] [address] Dr. Randall Ayoub MANUAL DIFF REQ NO Normal [facility] Comment on above: Performed By: #### I NSULIN #### [facility] [address] [place] [address] Dr. Randall Ayoub MCH (RBC) [Entitic mass] 31.7 pg Normal 25.9-34.0 [facility] Comment on above: Performed By: #### I NSULIN #### [facility] [address] [place] [address] Dr. Randall Ayoub MCHC (RBC) [Mass/Vol] 33.6 g/dL Normal 29.9-35.2 [facility] Comment on above: Performed By: #### I NSULIN #### [facility] [address] [place] [address] Dr. Randall Ayoub MCV (RBC) [Entitic vol] 94.3 fL Critically high 80.0-94.0 [facility] Comment on above: Performed By: #### I NSULIN #### [facility] [address] [place] [address] Dr. Randall Ayoub MONO # 0.6 103/ul Normal 0.3-0.8 [facility] Comment on above: Performed By: #### I NSULIN #### [facility] [address] [place] [address] Dr. Randall Ayoub Monocytes/100 WBC (Bld) 14.7 % Critically high 1.7-12.0 [facility] Comment on above: Performed By: #### I NSULIN #### [facility] [address] [place] [address] Dr. Randall Ayoub NEUT # 1.6 103/ul Normal 1.4-6.5 [facility] Comment on above: Performed By: #### I NSULIN #### [facility] [address] [place] [address] Dr. Randall Ayoub Neutrophils/100 WBC (Bld) 40.5 % Critically low 43.0-75.0 [facility] Comment on above: Performed By: #### I NSULIN #### [facility] [address] [place] [address] Dr. Randall Ayoub Platelet mean volume (Bld) [Entitic vol] 10.1 fL Normal 9.5-13.5 [facility] Comment on above: Performed By: #### I NSULIN #### [facility] [address] [place] [address] Dr. Randall Ayoub PLT 171 103/ul Normal 150-450 [facility] Comment on above: Performed By: #### I NSULIN #### [facility] [address] [place] [address] Dr. Randall Ayoub RBC 4.42 106/ul Critically low 4.70-6.10 [facility] Comment on above: Performed By: #### I NSULIN #### [facility] [address] [place] [address] Dr. Randall Ayoub WBC 3.9 103/ul Critically low 4.0-11.0 [facility] Comment on above: Performed By: #### I NSULIN #### [facility] [address] [place] [address] Dr. Randall Ayoub Covid-19 PCR (CVDTBH)on 01-15 SARS-CoV-2 (COVID-19) RNA SERGIO+probe Ql (Unsp spec) Not detected Normal NOT DETECTED [facility] Comment on above: Result Comment: This test is not yet approved or cleared by the [place] FDA. When there are no FDA-approved or cleared tests available, and other criteria are met, FDA can make tests available under an emergency access mechanism called an Emergency Use Authorization (EUA). The EUA for this test is supported by the [employer] of Health and Human Service's (HHS's) [...] SARS-CoV-2. Performed By: #### C VDTBH #### [facility] [address] [place] [address] Dr. Randall Ayoub ER URINE PROFILEon Bilirubin Ql (U) MODERATE Abnormal NEGATIVE [facility] Comment on above: Performed By: #### E RUR #### [facility] [address] [place] [address] Dr. Randall Ayoub Clarity (U) CLEAR Normal CLEAR [facility] Comment on above: Performed By: #### E RUR #### [facility] [address] [place] [address] Dr. Randall Ayoub Color (U) DK. YELLOW Normal YELLOW [facility] Comment on above: Performed By: #### E RUR #### [facility] [address] [place] [address] Dr. Randall Ayoub ERUAHD A micrscopic examina tion will be performed if indicated. Normal [facility] Comment on above: Performed By: #### E RUR #### [facility] [address] [address] [address] Randall Ayoub Glucose Ql (U) Negative Normal NEGATIVE [facility] Comment on above: Performed By: #### E RUR #### [facility] [address] [place] [address] Dr. Randall Ayoub Hemoglobin Ql (U) Negative Normal NEGATIVE [facility] Comment on above: Performed By: #### E RUR #### [facility] [address] [place] [address] Dr. Randall Ayoub Ketones Ql (U) >=80 Abnormal NEGATIVE [facility] Comment on above: Performed By: #### E RUR #### [facility] [address] [place] [address] Dr. Randall Ayoub LEUKOCYTES Negative Normal NEGATIVE [facility] Comment on above: Performed By: #### E RUR #### [facility] [address] [place] [address] Dr. Randall Ayoub Nitrite Ql (U) Negative Normal NEGATIVE [facility] Comment on above: Performed By: #### E RUR #### [facility] [address] [place] [address] Dr. Randall Ayoub pH (U) 6.5 [pH] Normal 5-9 [facility] Comment on above: Performed By: #### E RUR #### [facility] [address] [place] [address] Dr. Randall Ayoub Protein (U) [Mass/Vol] 30 mg/dL Abnormal NEGATIVE/ TRACE [facility] Comment on above: Performed By: #### E RUR #### [facility] [address] [place] [address] Dr. Randall Ayoub SPEC GRAVITY 1.025 Normal 1.005-<=1. 025 [facility] Comment on above: Performed By: #### E RUR #### [facility] [address] [place] [address] Dr. Randall Ayoub UR MICRO IND NOT INDICATED Normal [facility] Comment on above: Performed By: #### E RUR #### [facility] [address] [place] [address] Dr. Randall Ayoub Urobilinogen Qn (U) 1.0 {Kavita'U}/dL Normal 0.2 - 1. 0 [facility] Comment on above: Performed By: #### E RUR #### [facility] [address] [place] [address] Dr. Randall Ayoub INFLUENZA A AND B AGon 02-03 INFLUANEGH SEE BELOW Normal [facility] Comment on above: Result Comment: Nega tive for Flu A protein angiten. Infection due to Flu A cannot be ruled out. Flu A angiten in the sample may be below the detection limit of the test. Performed By: #### I NSULIN #### [facility] [address] [place] [address] Dr. [facility] BEL[facility] Normal [facility] Comment on above: Result Comment: Nega tive for Flu B protein antigen. Infection due to Flu B cannot be ruled out. Flu B antigen in the sample may be below the detection limit of the test. Performed By: #### I NSULIN #### [facility] [address] [place] [address] Dr. Randall Ayoub INFLUENZA A AG Negative Normal NEGATIVE SEE COMMENT [facility] Comment on above: Performed By: #### I NSULIN #### [facility] [address] [place] [address] Dr. Randall Ayoub INFLUENZA B AG Negative Normal NEGATIVE SEE COMMENT [facility] Comment on above: Performed By: #### I NSULIN #### [facility] [address] [place] [address] Dr. Randall Ayoub INTERNAL CONTROLS Within Normal Limits Normal Wi thin Normal Limits [facility] Comment on above: Performed By: #### I NSULIN #### [facility] [address] [place] [address] Dr. Randall Ayoub LACTATE/LACTIC ACIDon 2021 Lactate [Moles/Vol] 1.2 mmol/L Normal 0.4-1.9 [facility] Comment on above: Performed By: #### L ACT #### [facility] [address] [place] [address] Dr. Randall Ayoub PROF 14(COMP METB)on 022 Albumin [Mass/Vol] 4.0 g/dL Normal 3.4-5.0 [facility] Comment on above: Performed By: #### C MP #### [facility] [address] [place] [address] Dr. Randall Ayoub Albumin/Globulin [Mass ratio] 1.3 {ratio} Normal [facility] Comment on above: Performed By: #### C MP #### [facility] [address] [place] [address] Dr. Randall Ayoub ALP [Catalytic activity/Vol] 71 U/L Normal 46-116 [facility] Comment on above: Performed By: #### C MP #### [facility] [address] [place] [address] Dr. Randall Ayoub ALT [Catalytic activity/Vol] 26 U/L Normal 16-63 [facility] Comment on above: Performed By: #### C MP #### [facility] [address] [place] [address] Dr. Randall Ayoub Anion gap [Moles/Vol] 15.4 mmol/L Normal [facility] Comment on above: Performed By: #### C MP #### [facility] [address] [place] [address] Dr. aRndall Ayobu AST [Catalytic activity/Vol] 15 U/L Normal 15-37 [facility] Comment on above: Performed By: #### C MP #### [facility] [address] [place] [address] Dr. Randall Ayoub Bilirubin [Mass/Vol] 0.6 mg/dL Normal 0.2-1.0 [facility] Comment on above: Performed By: #### C MP #### [facility] [address] [place] [address] Dr. Randall Ayoub Calcium [Mass/Vol] 8.9 mg/dL Normal 8.5-10.1 [facility] Comment on above: Performed By: #### C MP #### [facility] [address] [place] [address] Dr. Randall Ayoub Chloride [Moles/Vol] 108 mmol/L Critically high 98-107 [facility] Comment on above: Performed By: #### C MP #### [facility] [address] [address] [address] Randall Ayoub CO2 [Moles/Vol] 23.1 mmol/L Normal 21.0-32.0 [facility] Comment on above: Performed By: #### C MP #### [facility] [address] [address] [address] Randall Ayoub Creatinine [Mass/Vol] 0.96 mg/dL Normal 0.70-1.30 [facility] Comment on above: Performed By: #### C MP #### [facility] [address] [place] [address] Dr. Randall Ayoub EGFR-AF LIBERIAN >60 Normal >=60 [facility] Comment on above: Performed By: #### C MP #### [facility] [address] [place] [address] Dr. Randall Ayoub EGFR-NON AF LIBERIAN >60 Normal >=60 [facility] Comment on above: Performed By: #### C MP #### [facility] [address] [address] [address] Randall Ayoub Globulin (S) [Mass/Vol] 3.0 g/dL Normal [facility] Comment on above: Performed By: #### C MP #### [facility] [address] [place] [address] Dr. Randall Ayoub Glucose [Mass/Vol] 99 mg/dL Normal 74-106 [facility] Comment on above: Performed By: #### C MP #### [facility] [address] [place] [address] Dr. Randall Ayoub Potassium [Moles/Vol] 3.5 mmol/L Normal 3.5-5.1 [facility] Comment on above: Performed By: #### C MP #### [facility] [address] [place] [address] Dr. Randall Ayoub Protein [Mass/Vol] 7.0 g/dL Normal 6.4-8.2 [facility] Comment on above: Performed By: #### C MP #### [facility] [address] [address] [address] Randall Ayoub Sodium [Moles/Vol] 143 mmol/L Normal 136-145 [facility] Comment on above: Performed By: #### C MP #### [facility] [address] [place] [address] Dr. Randall Ayoub Urea nitrogen [Mass/Vol] 24.0 mg/dL Critically high 7.0-18.0 [facility] Comment on above: Performed By: #### C MP #### [facility] [address] [place] [address] Dr. Randall Ayoub Urea nitrogen/Creatinine [Mass ratio] 25.0 mg/mg Normal [facility] Comment on above: Performed By: #### C MP #### [facility] [address] [place] [address] Dr. Randall Ayoub SYMPTOMATIC COVID-19 ANTIGEN on 02-03-2022 EUA Statement SEE BELOW Normal [facility] Comment on above: Result Comment: [...] sooner. Performed By: #### C VDAGS #### [facility] [address] [place] [address] Dr. Randall Ayoub SARS-CoV-2 (COVID-19) RNA SERGIO+probe Ql (Unsp spec) Negative Normal NEGATIVE [facility] Comment on above: Performed By: #### C VDAGS #### [facility] [address] [address] [address] Randall Ayoub XR CHEST 2 Von [...] with hardware partially visualized. Electronically authenticated by: [employer] Date: 2022-02-03 17:08 Normal [facility]14 SARS-CoV-2 (COVID-19) RNA SERGIO+probe Ql (Unsp spec) Not detected Normal NOT DETECTED [facility] Comment on above: Result Comment: This test is not yet approved or cleared by the [place] FDA. When there are no FDA-approved or cleared tests available, and other criteria are met, FDA can make tests available under an emergency access mechanism called an Emergency Use Authorization (EUA). The EUA for this test is supported by the [employer] of Health and Human Service's (HHS's) [...] SARS-CoV-2. Performed By: #### C VDTB #### [facility] [address] [address] [address] Randall Ayoub Vital Signs Date Time Vital Sign Value Performing Clinician Facility 10-05-2024 13:54-0500 Diastolic blood pressure 75 mm[Hg] Xu PORRAS Work Phone: [facility] 10-05-2024 13:54-0500 Heart rate 90 /min Xu Nienberg PA Work Phone: [facility] 10-05-2024 13:54-0500 Respiratory rate 16 /min Xu Nienberg PA Work Phone: [facility] 10-05-2024 13:54-0500 SaO2% (BldA) [Mass fraction] 100 % Xu Nienberg PA Work Phone: [facility] 10-05-2024 13:54-0500 Systolic blood pressure 121 mm[Hg] Xu Nienberg PA Work Phone: [facility] 08-29-2024 13:17-0500 Body height 172.7 cm Xu Nienberg PA Work Phone: [facility] 08-29-2024 13:17-0500 Body mass index (BMI) [Ratio] 30.26 kg/m2 Xu Nienberg PA Work Phone: [facility] 08-29-2024 13:17-0500 Body weight 90.27 kg Xu Nienberg PA Work Phone: [facility] 08-29-2024 13:17-0500 Diastolic blood pressure 88 mm[Hg] Xu Nienberg PA Work Phone: [facility] 08-29-2024 13:17-0500 Heart rate 78 /min Xu Nienberg PA Work Phone: [facility] 08-29-2024 13:17-0500 SaO2% (BldA) [Mass fraction] 99 % [facility] 08-29-2024 13:17-0500 Systolic blood pressure 134 mm[Hg] [facility] 06-27-2024 12:56-0500 Body height 172.7 cm Xu Nienberg PA Work Phone: [facility] 06-27-2024 12:56-0500 Body mass index (BMI) [Ratio] 29.77 kg/m2 Xu Nienberg PA Work Phone: [facility] 06-27-2024 12:56-0500 Body weight 88.81 kg Xu Nienberg PA Work Phone: [facility] 06-27-2024 12:56-0500 Diastolic blood pressure 89 mm[Hg] Xu Nienberg PA Work Phone: [facility] 06-27-2024 12:56-0500 Heart rate 85 /min Xu Nienberg PA Work Phone: [facility] 06-27-2024 12:56-0500 Respiratory rate 18 /min Xu Nienberg PA Work Phone: [facility] 06-27-2024 12:56-0500 SaO2% (BldA) [Mass fraction] 98 % Xu Nienberg PA Work Phone: [facility] 06-27-2024 12:56-0500 Systolic blood pressure 123 mm[Hg] Xu Nienberg PA Work Phone: [facility] 04-13-2024 14:22-0400 Body mass index (BMI) [Ratio] 29.35 kg/m2 Xu Nienberg PA Work Phone: [facility] 04-13-2024 14:22-0400 Body weight 87.54 kg Xu Nienberg PA Work Phone: [facility] 04-13-2024 14:22-0400 Diastolic blood pressure 69 mm[Hg] Xu Nienberg PA Work Phone: [facility] 04-13-2024 14:22-0400 Heart rate 91 /min Xu Nienberg PA Work Phone: [facility] 04-13-2024 14:22-0400 Respiratory rate 14 /min Xu Nienberg PA Work Phone: [facility] 04-13-2024 14:22-0400 SaO2% (BldA) [Mass fraction] 100 % Xu Persaudenberg PA Work Phone: [facility] 04-13-2024 14:22-0400 Systolic blood pressure 109 mm[Hg] Xu Persaudenberg PA Work Phone: [facility] 02-22-2024 14:58-0400 Body mass index (BMI) [Ratio] 28.74 kg/m2 Xu Persaudenberg PA Work Phone: [facility] 02-22-2024 14:58-0400 Body weight 85.73 kg Xu Persaudenberg PA Work Phone: [facility] 02-22-2024 14:58-0400 Diastolic blood pressure 83 mm[Hg] Xu Persaudenberg PA Work Phone: [facility] 02-22-2024 14:58-0400 Heart rate 109 /min Xu Persaudenberg PA Work Phone: [facility] 02-22-2024 14:58-0400 Respiratory rate 16 /min Xu Persaudenberg PA Work Phone: [facility] 02-22-2024 14:58-0400 SaO2% (BldA) [Mass fraction] 97 % Xu Persaudenberg PA Work Phone: [facility] 02-22-2024 14:58-0400 Systolic blood pressure 109 mm[Hg] Xu Persaudenberg PA Work Phone: [facility] 02-10-2024 11:06-0400 Body height 172.7 cm Charles Tim SENIOR 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 Work Phone: [facility] 02-10-2024 11:06-0400 Body mass index (BMI) [Ratio] 30.41 kg/m2 Charles Tim SENIOR 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 [employer] Work Phone: [facility] 02-10-2024 11:06-0400 Body weight 90.72 kg Charles Tim SENIOR 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 [employer] Work Phone: [facility] 01-20-2024 09:59-0400 Body height 172.7 cm Xu Troy PA Work Phone: [facility] 01-20-2024 09:59-0400 Body mass index (BMI) [Ratio] 30.41 kg/m2 Xu Troy PA Work Phone: [facility] 01-20-2024 09:59-0400 Body weight 90.72 kg Xu Troy PA Work Phone: [facility] 01-20-2024 09:59-0400 Diastolic blood pressure 80 mm[Hg] Xu Troy PA Work Phone: [facility] 01-20-2024 09:59-0400 Heart rate 85 /min Xu Troy PA Work Phone: [facility] 01-20-2024 09:59-0400 Respiratory rate 18 /min Xu Troy PA Work Phone: [facility] 01-20-2024 09:59-0400 SaO2% (BldA) [Mass fraction] 97 % Xu Troy PA Work Phone: [facility] 01-20-2024 09:59-0400 Systolic blood pressure 132 mm[Hg] Xu Troy PA Work Phone: [facility] 12-02-2023 14:55-0400 Body height 170.2 cm hCarles Tim SENIOR 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 [employer] Work Phone: [facility] 12-02-2023 14:55-0400 Body mass index (BMI) [Ratio] 31.32 kg/m2 Charles Tim SENIOR 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 [employer] Work Phone: [facility] 12-02-2023 14:55-0400 Body weight 90.72 kg Charles Tim SENIOR 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 [employer] Work Phone: [facility] 12-02-2023 14:55-0400 Diastolic blood pressure 81 mm[Hg] Charles Tim SENIOR 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 [employer] Work Phone: [facility] 12-02-2023 14:55-0400 Heart rate 100 /min Charles Tim SENIOR 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 [employer] Work Phone: [facility] 12-02-2023 14:55-0400 Systolic blood pressure 125 mm[Hg] Charles Tim SENIOR 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 [employer] Work Phone: [facility] 11-16-2023 13:17-0400 Blood Pressure Location [facility] [place] 11-16-2023 13:17-0400 Diastolic blood pressure 78 mm[Hg] Michel [facility] [place] 11-16-2023 13:17-0400 Heart rate 72 /min Michel N[facility] [place] 11-16-2023 13:17-0400 Respiratory rate 16 /min Michel N[facility] [place] 11-16-2023 13:17-0400 Systolic blood pressure 118 mm[Hg] Michel [facility] [place] 11-04-2023 10:19-0400 Body height 170.2 cm Darrell Olsen MD Work Phone: [facility] 11-04-2023 10:19-0400 Body mass index (BMI) [Ratio] 31.64 kg/m2 Darrell Olsen MD Work Phone: [facility] 11-04-2023 10:19-0400 Body weight 91.63 kg Darrell Olsen MD Work Phone: [facility] 10-29-2023 06:05-0400 Body temperature 97.9 [degF] MD Donna Herrera Work Phone: [facility] 10-29-2023 06:05-0400 Diastolic blood pressure 74 mm[Hg] MD Donna Herrera Work Phone: [facility] 10-29-2023 06:05-0400 Heart rate 72 /min MD Donna Herrera Work Phone: [facility] 10-29-2023 06:05-0400 Respiratory rate 16 /min MD Donna Herrera Work Phone: [facility] 10-29-2023 06:05-0400 SaO2% (BldA) [Mass fraction] 98 % MD Donna Herrera Work Phone: [facility] 10-29-2023 06:05-0400 Systolic blood pressure 124 mm[Hg] MD Donna Herrera Work Phone: [facility] 10-28-2023 09:50-0400 Body height 172.72 cm MD Donna Herrera Work Phone: [facility] 10-27-2023 14:36-0400 Body weight 90 kg MD Donna Herrera Work Phone: [facility] 10-08-2023 13:45-0500 Body height 172.7 cm [facility] 10-08-2023 13:45-0500 Body mass index (BMI) [Ratio] 30.77 kg/m2 [facility] 10-08-2023 13:45-0500 Body temperature 97.7 [degF] [facility] 10-08-2023 13:45-0500 Body weight 91.8 kg [facility] 10-08-2023 13:45-0500 Diastolic blood pressure 81 mm[Hg] [facility] 10-08-2023 13:45-0500 Heart rate 74 /min [facility] 10-08-2023 13:45-0500 Respiratory rate 18 /min [facility] 10-08-2023 13:45-0500 SaO2% (BldA) [Mass fraction] 93 % [facility] 10-08-2023 13:45-0500 Systolic blood pressure 125 mm[Hg] [facility] 09-23-2023 11:38-0500 Body height 172.7 cm Charles Tim SENIOR 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 [employer] Work Phone: [facility] 09-23-2023 11:38-0500 Body mass index (BMI) [Ratio] 30.41 kg/m2 Charles Tim SENIOR 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 [employer] Work Phone: [facility] 09-23-2023 11:38-0500 Body weight 90.72 kg Charles Tim SENIOR 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 [employer] Work Phone: [facility] 09-02-2023 09:59-0500 Body height 172.7 cm Charles Tim SENIOR 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 [employer] Work Phone: [facility] 09-02-2023 09:59-0500 Body mass index (BMI) [Ratio] 30.41 kg/m2 Charles Tim SENIOR 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 [employer] Work Phone: [facility] 09-02-2023 09:59-0500 Body weight 90.72 kg Charles Tim SENIOR 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 [employer] Work Phone: [facility] 09-02-2023 09:59-0500 Diastolic blood pressure 77 mm[Hg] Charles Tim SENIOR 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 EXPERIMENTAL ASSEMBLY Work Phone: [facility] 09-02-2023 09:59-0500 Heart rate 74 /min Charles Tim SENIOR 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 EXPERIMENTAL ASSEMBLY Work Phone: [facility] 09-02-2023 09:59-0500 Systolic blood pressure 115 mm[Hg] Charles Tim SENIOR 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 EXPERIMENTAL ASSEMBLY Work Phone: [facility] 08-19-2023 13:20-0500 Body height 172.7 cm Xu PORRAS Work Phone: [facility] 08-19-2023 13:20-0500 Body mass index (BMI) [Ratio] 31.32 kg/m2 Xu PORRAS Work Phone: [facility] 08-19-2023 13:20-0500 Body weight 93.44 kg Xu Persaudenberg PA Work Phone: [facility] 08-19-2023 13:20-0500 Diastolic blood pressure 87 mm[Hg] Xu Troy PA Work Phone: [facility] 08-19-2023 13:20-0500 Heart rate 81 /min Xu Pedro PA Work Phone: [facility] 08-19-2023 13:20-0500 Respiratory rate 18 /min Xu Pedro PA Work Phone: [facility] 08-19-2023 13:20-0500 SaO2% (BldA) [Mass fraction] 98 % Xufish Troy PA Work Phone: [facility] 08-19-2023 13:20-0500 Systolic blood pressure 142 mm[Hg] Xu Pedro PA Work Phone: [facility] 05-25-2023 09:40-0400 Body height 175.26 cm Trino Cadet Other [facility] Other 05-25-2023 09:40-0400 Body mass index (BMI) [Ratio] 29.83 kg/m2 Trino Cadet Other [facility] Other 05-25-2023 09:40-0400 Body weight 91.63 kg Trino Cadet Other [facility] Other 09-15-2022 15:40-0500 Body height 175.26 cm Trino Cadet Other [facility] Other 09-15-2022 15:40-0500 Body mass index (BMI) [Ratio] 30.27 kg/m2 Trino Cadet Other [facility] Other 09-15-2022 15:40-0500 Body weight 92.99 kg Trino Cadet Other [facility] Other 09-15-2022 15:40-0500 Diastolic blood pressure 70 mm[Hg] Trino Cadet Other [facility] Other 09-15-2022 15:40-0500 Systolic blood pressure 116 mm[Hg] Trino Cadet Other [facility] Other 08-04-2022 12:20-0500 Body height 175.26 cm Trino Cadet Other [facility] Other 08-04-2022 12:20-0500 Body mass index (BMI) [Ratio] 30.27 kg/m2 Trino Cadet Other [facility] Other 08-04-2022 12:20-0500 Body weight 92.99 kg Trino Cadet Other [facility] Other 08-05-2021 12:20-0500 Body height 175.26 cm Trino Cadet Other [facility] Other 08-05-2021 12:20-0500 Body mass index (BMI) [Ratio] 30.27 kg/m2 Trino Cadet Other [facility] Other 08-05-2021 12:20-0500 Body weight 92.99 kg Trino Cadet Other [employer] Other Encounters Encounter Date Encounter Type Care Provider Facility Start: 10-05-2024 End: 10-05-2024 Office outpatient visit 15 minutes Xu Troy PA Work Phone: [facility] Comment on above: Lumbosacral spondylo sis without myelopathy (Primary Dx) Start: 10-05-2024 End: 10-05-2024 ambulatory XU TROY [facility] Start: 09-15-2024 End: 09-15-2024 ambulatory [facility] Start: 08-29-2024 End: 08-29-2024 Office outpatient visit 15 minutes Xu PORRAS Work Phone: [facility] Comment on above: Spinal stenosis of l umbar region with neurogenic claudication (Primary Dx) Start: 08-29-2024 End: 08-29-2024 ambulatory [facility] Mayr Lou [facility] Start: 08-22-2024 End: 08-22-2024 Refill Kathy Ziegler CNA [facility] Comment on above: Lumbosacral spondylo sis without myelopathy Start: 06-27-2024 End: 06-27-2024 Office outpatient visit 15 minutes Xu Troy PA Work Phone: [facility] Comment on above: Lumbosacral spondylo sis without myelopathy (Primary Dx) Start: 06-27-2024 End: 06-27-2024 ambulatory [facility] Start: 06-07-2024 End: 06-07-2024 Refill Xu Troy PA Work Phone: [facility] Comment on above: Disorder of sacrum; Lumbosacral spondylosis without myelopathy Start: 05-12-2024 End: 05-12-2024 ambulatory DAVE Isaias [facility] Start: 04-29-2024 End: 04-29-2024 ambulatory SCHUYLER Barreto WICHO [facility] Start: 04-28-2024 End: 04-28-2024 ambulatory [facility] Start: 04-13-2024 End: 04-13-2024 Office outpatient visit 15 minutes Xu PORRAS Work Phone: [facility] Comment on above: Disorder of sacrum ( Primary Dx) Start: 04-13-2024 End: 04-13-2024 ambulatory XU Barreto [facility] Start: 04-04-2024 End: 04-06-2024 Tracey Dey RN [facility] Comment on above: Lumbosacral spondylo sis without myelopathy Start: 02-22-2024 End: 02-22-2024 Office outpatient visit 15 minutes Xu PORRAS Work Phone: [facility] Comment on above: Disorder of sacrum ( Primary Dx); Lumbosacral spondylosis without myelopathy Start: 02-22-2024 End: 02-22-2024 ambulatory XU Barreto MELISSA [facility] Start: 02-10-2024 End: 02-10-2024 Office outpatient visit 15 minutes Charles Tim APRN-INSPECTOR EXPERIMENTAL ASSEMBLY Work Phone: [facility] Comment on above: Status post lumbar l aminectomy (Primary Dx) Start: 02-05-2024 End: 02-05-2024 ambulatory SHAI J[facility] Start: 02-04-2024 End: 02-04-2024 ambulatory [facility] Start: 02-04-2024 End: 02-04-2024 ambulatory [facility] Start: 01-20-2024 End: 01-20-2024 Office outpatient visit 15 minutes Xu Troy PA Work Phone: [facility] Comment on above: Disorder of sacrum ( Primary Dx); Lumbosacral spondylosis without myelopathy Start: 01-20-2024 End: 01-20-2024 ambulatory XU Barreto MELISSA [facility] Start: 12-29-2023 End: 12-29-2023 ambulatory Michel ROBBINS Facility:[facility] Start: 12-29-2023 End: 12-29-2023 Patient encounter procedure Michel ROBBINS [facility] [place] Start: 12-22-2023 End: 12-22-2023 ambulatory Michel R Nill Facility:[facility] Start: 12-22-2023 End: 12-22-2023 ambulatory MD Donna Herrera Work Phone: [facility] Work Phone: Start: 12-22-2023 End: 12-22-2023 Departed Referred MD Donna Herrera Work Phone: [facility] Path [facility] [place] [facility] Start: 12-22-2023 End: 12-22-2023 ambulatory Michel R GINAL Facility:[id number] Start: 12-20-2023 End: 12-20-2023 Telephone encounter Radha Bustillos RN [facility] Comment on above: pain Start: 12-08-2023 End: 01-15-2024 ambulatory CHARLES TIM [facility] Start: 12-02-2023 End: 12-02-2023 ambulatory [place] [facility] Start: 12-02-2023 End: 12-02-2023 Postop follow up visit related to original px Charles Tim SENIOR 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 EXPERIMENTAL ASSEMBLY Work Phone: [facility] Comment on above: Status post lumbar l aminectomy (Primary Dx) Start: 11-26-2023 End: 11-29-2023 Refill Kathy Ziegler COMPUTATIONAL THEORY SCIENTIST [facility] Comment on above: Disorder of sacrum ( Primary Dx) Start: 11-16-2023 End: 11-16-2023 ambulatory Donna Herrera Facility: [place] Start: 11-16-2023 End: 11-16-2023 Patient encounter procedure Michel R NILL [facility] Nill/S[facility] [place] Start: 11-04-2023 End: 11-04-2023 ambulatory [facility] Start: 11-04-2023 End: 11-04-2023 Postop follow up visit related to original px Darrell Olsen MD Work Phone: [facility] Comment on above: Status post lumbar l aminectomy (Primary Dx) Start: 10-28-2023 Non-patient / Non-visit MD Marry Herrera Work Phone: [facility] Work Phone: Start: 10-28-2023 End: 10-29-2023 Non-patient / Non-visit MD Donna Herrera Work Phone: [facility] Work Phone: Start: 10-27-2023 End: 10-29-2023 Evaluation and management of inpatient DONNA [facility] Start: 10-27-2023 End: 10-29-2023 Evaluation and management of inpatient MD Donna Herrera Work Phone: [facility] Work Phone: Start: 10-23-2023 End: 10-27-2023 ambulatory MARVA Batista AGUAYO [facility] Start: 10-22-2023 End: 10-27-2023 Evaluation and management of inpatient [facility] Start: 10-22-2023 End: 10-27-2023 Evaluation and management of inpatient [facility] Start: 10-08-2023 End: 10-08-2023 ambulatory [facility] Start: 10-08-2023 Telephone encounter [facility] Start: 10-08-2023 End: 10-08-2023 Patient encounter procedure [facility] [address] Comment on above: Spinal stenosis of l umbar region with neurogenic claudication Start: 10-07-2023 ambulatory Donna Herrera Facility:[facility] Start: 09-23-2023 End: 09-24-2023 ambulatory CHARLESFERMÍN TIM [facility] Start: 09-23-2023 Encounter for other preprocedural examination [facility] Start: 09-23-2023 End: 09-23-2023 ambulatory DONNA Santo HERRERA [facility] Start: 09-23-2023 Encounter for other preprocedural examination [facility] Start: 09-23-2023 End: 09-23-2023 Office outpatient new 60 minutes Charles Tim SENIOR 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 EXPERIMENTAL ASSEMBLY Work Phone: [facility] Comment on above: Spinal stenosis of l umbar region with neurogenic claudication (Primary Dx); Pre-op testing; Radiculopathy, lumbar region Start: 09-23-2023 End: 09-23-2023 Patient encounter status Charles Tim SENIOR 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 EXPERIMENTAL ASSEMBLY Work Phone: [facility] Start: 09-16-2023 Refill Kathy Ziegler CNA [facility] Comment on above: Disorder of sacrum Start: 09-02-2023 End: 09-03-2023 ambulatory CHARLES [facility] Start: 09-02-2023 End: 09-02-2023 Office outpatient new 45 minutes Charles Tim SENIOR 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 EXPERIMENTAL ASSEMBLY Work Phone: [facility] Comment on above: Spinal stenosis of l umbar region with neurogenic claudication (Primary Dx); History of lumbar fusion; Radiculopathy, lumbar region; Lumbar radiculopathy Start: 08-19-2023 End: 08-19-2023 Office outpatient visit 15 minutes Xu PORRAS Work Phone: [facility] Comment on above: Spinal stenosis of l umbar region with neurogenic claudication (Primary Dx) Start: 05-25-2023 End: 05-25-2023 ambulatory Trino Cadet Other [facility] [employer] Other Start: 05-25-2023 Office outpatient vi sit 15 minutes Trino Cadet [facility] Start: 05-24-2023 End: 05-24-2023 ambulatory Trino Cadet Facility:[facility] Start: 05-24-2023 End: 05-24-2023 ambulatory MD Donna Herrera Work Phone: [facility] Work Phone: Start: 05-24-2023 End: 05-24-2023 Patient encounter procedure MD Donna Herrera Work Phone: [facility] [place] Work Phone: Start: 09-15-2022 End: 09-15-2022 ambulatory Trino Cadet Other [facility] Other Start: 09-15-2022 Office outpatient vi sit 15 minutes Trino Cadet [facility] Start: 09-08-2022 Encounter for genera l adult medical examination without abnormal findings DR DONNA [facility] Start: 09-03-2022 End: 09-04-[address] DONNA HERRERA Facility:[facility] Start: 09-03-2022 End: 09-04-2022 Encounter for general adult medical examination without abnormal findings DR DONNA HERRERA Facility:[facility] Start: 08-04-2022 End: 08-04-2022 ambulatory Trino Cadet Other [facility] Other Start: 08-04-2022 Office outpatient vi sit 15 minutes Trino Cadet [facility] Start: 02-03-2022 End: 02-03-[address] DONNA HERRERA Facility:[facility] Start: 02-03-2022 End: 02-03-[address] DONNA HERRERA Facility:[facility] Start: 01-01-2022 End: 01-01-[address] DONNA HERRERA Facility:[facility] Start: 08-05-2021 End: 08-05-2021 ambulatory Trino Cadet Other [facility] Other Start: 08-05-2021 Office outpatient vi sit 15 minutes Trino Cadet [facility] Procedures Date Procedure Procedure Detail Performing [...] on above: Performed By: #### PS[facility] #### [facility] [address] [place] [address] Dr. Randall Ayoub Arthroscopy of shoulder Keron ROBBINS History of lumbar laminectomy Michel ROBBINS History of repair of musculotendinous cuff of shoulder Trino Cadet Other Laser assisted in si tu keratomileusis Michel ROBBINS Lumbar spinal fusion Michel ROBBINS Plan of Treatment Date Care Activity Detail Author Start: 01-01-2032 DTaP,Tdap and Td Vaccines (3 - Td or Tdap) DTaP,Tdap and Td Vaccines (3 - Td or Tdap) [facility] Start: 10-05-2025 Tobacco Screening Tobacco Screening [facility] Start: 08-29-2025 Adult BMI Screening Adult BMI Screen ing [facility] Start: 08-29-2025 Tobacco Screening Tobacco Screening [facility] Start: 06-27-2025 Adult BMI Screening Adult BMI Screen ing [facility] Start: 06-27-2025 Tobacco Screening Tobacco Screening [facility] Start: 05-12-2025 Tobacco Screening Tobacco Screening [facility] Start: 04-13-2025 Adult BMI Screening Adult BMI Screen ing [facility] Start: 04-13-2025 Tobacco Screening Tobacco Screening [facility] Start: 02-21-2025 Adult BMI Screening Adult BMI Screen ing [facility] Start: 02-21-2025 Tobacco Screening Tobacco Screening [facility] Start: 02-03-2025 Tobacco Screening Tobacco Screening [facility] Start: 01-19-2025 Adult BMI Screening Adult BMI Screen ing [facility] Start: 01-19-2025 Tobacco Screening Tobacco Screening [facility] Start: 12-05-2024 End: 12-05-2024 Patient encounter procedure 12/05/2024 11:15 AM EDT Office Visit [facility] [address] [place] [phone] Xu Troy, PA [address] [place] [address] [facility] Start: 12-01-2024 Adult BMI Screening Adult BMI Screen ing [facility] Start: 12-01-2024 Tobacco Screening Tobacco Screening [facility] Start: 11-09-2024 Tobacco Screening Tobacco Screening [facility] Start: 11-03-2024 Adult BMI Screening Adult BMI Screen ing [facility] Start: 10-05-2024 End: 10-05-2024 Patient encounter procedure 10/05/2024 1:30 PM EST Office Visit [facility] [address] [place] [phone] Xu Troy, PA [address] [place] [address] [facility] Start: 09-23-2024 Adult BMI Screening Adult BMI Screen ing [facility] Start: 09-23-2024 Tobacco Screening Tobacco Screening [facility] Start: 09-15-2024 End: 09-15-2024 Admission to same day surgery center 09/15/2024 8:27 AM EST - 09/15/2024 8:34 AM EST Surgery [facility] [address] [place] [phone] Dave Garcia MD [address] [place] [place] [id number] INJECTION SPINE TRANSFORAMINAL: right L12 [62339 (CPT )] [facility] Comment on above: INJECTION SPINE NELSON SFORAMINAL: right L12 [61027 (CPT )] Start: 09-15-2024 End: 09-15-2024 Njx anes&/strd w/img tfrml edrl lmbr/sac 1 lvl INJECTION SPINE TRANSFORAMINAL Spinal stenosis of lumbar region with neurogenic claudication 09/15/2024 8:27 AM EST [facility] Start: 09-15-2024 Subsequent hospital visit by physician 09/15/2024 8:27 AM EST Hospital Encounter [facility] [address] [place] [phone] Dave Garcia MD [address] [place], [place] [phone] [facility] Start: 09-02-2024 Adult BMI Screening Adult BMI Screen ing [facility] Start: 09-02-2024 Tobacco Screening Tobacco Screening [facility] Start: 08-29-2024 End: 08-29-2024 Patient encounter procedure 08/29/2024 1:00 PM EST Office Visit [facility] [address] [place] [phone] Xu Troy, PA [address] [place] [address] [facility] Start: 08-19-2024 Adult BMI Screening Adult BMI Screen ing [facility] Start: 08-19-2024 Tobacco Screening Tobacco Screening [facility] Start: 06-27-2024 End: 06-27-2024 Patient encounter procedure 06/27/2024 12:45 PM EST Office Visit [facility] [address] [place] [phone] Xu Troy, PA [address] [place] [address] [facility] Start: 05-26-2024 End: 05-26-2024 Admission to same day surgery center 05/26/2024 9:30 AM EDT - 05/26/2024 9:42 AM EDT Surgery [facility] [address] [place] [phone] Dave Garcia MD [address] [place] [address] RADIOFREQUENCY ABLATION SPINAL: left SI [95830 (CPT )] [facility] Comment on above: RADIOFREQUENCY ABLAT ION SPINAL: left SI [44393 (CPT )] Start: 05-26-2024 End: 05-26-2024 Radiofrequency abltj nrv nrvtg si jt w/img gdn RADIOFREQUENCY ABLATION SPINAL Disorder of sacrum 05/26/2024 9:30 AM EDT [facility] Start: 05-26-2024 Subsequent hospital visit by physician 05/26/2024 9:30 AM EDT Hospital Encounter [facility] [address] [place] [address] Dave Garcia MD [address] [place] [address] [facility] Start: 05-12-2024 End: 05-12-2024 Admission to same day surgery center 05/12/2024 12:12 PM EDT - 05/12/2024 12:24 PM EDT Surgery [facility] [address] [place] [phone] Dave Garcia MD [address] [place], [place] [id number] RADIOFREQUENCY ABLATION SPINAL: right SI [74471 (CPT )] [facility] Comment on above: RADIOFREQUENCY ABLAT ION SPINAL: right SI [64656 (CPT )] Start: 05-12-2024 End: 05-12-2024 Radiofrequency abltj nrv nrvtg si jt w/img gdn RADIOFREQUENCY ABLATION SPINAL Disorder of sacrum 05/12/2024 12:12 PM EDT [facility] Start: 05-12-2024 Subsequent hospital visit by physician 05/12/2024 12:12 PM EDT Hospital Encounter [facility] [address] [place] [phone] Dave Garcia MD [address] [place] [address] [facility] Start: 04-16-2024 COVID-19 Vaccine ( season) COVID-19 Vaccine ( season) [facility] Start: 04-16-2024 Influenza vaccination Influenza Vacc ine [facility] Start: 04-13-2024 End: 04-13-2024 Patient encounter procedure 04/13/2024 2:15 PM EDT Office Visit [facility] [address] [place] [phone] Xu Troy PA [address] [place] [address] [facility] Start: 03-14-2024 End: 03-14-2024 Patient encounter procedure 03/14/2024 2:00 PM EDT Office Visit [facility] [address] [place] [phone] Darrell Olsen MD [address] [place] [phone] [facility] Start: 02-22-2024 End: 02-22-2024 Patient encounter procedure 02/22/2024 2:45 PM EDT Office Visit [facility] [address] [place] [phone] Xu Troy, PA [address] [place] [address] [facility] Start: 02-10-2024 End: 02-10-2024 Patient encounter procedure 02/10/2024 10:30 AM EDT Office Visit [facility] [address] [place] [phone] Darrell Olsen MD [address] [place] [phone] [facility] Start: 02-04-2024 End: 02-04-2024 Admission to same day surgery center 02/04/2024 11:46 AM EDT - 02/04/2024 11:53 AM EDT Surgery [facility] [address] [place] [phone] Dave Garcia MD [address] [place], [place] [id number] INJECTION BLOCK SACROILIAC JOINT [87190 (CPT )] [facility] Comment on above: INJECTION BLOCK SACR OILIAC JOINT [45710 (CPT )] Start: 02-04-2024 End: 02-04-2024 Inject si joint arthrgrphy&/anes/steroid w/cas INJECTION BLOCK SACROILIAC JOINT Disorder of sacrum 02/04/2024 11:46 AM EDT [facility] Start: 02-04-2024 Subsequent hospital visit by physician 02/04/2024 11:46 AM EDT Hospital Encounter [facility] [address] [place] [phone] Dave Garcia MD [address] [place], [place] [phone] [facility] Start: 12-02-2023 End: 12-02-2023 Patient encounter procedure 12/02/2023 3:00 PM EDT Office Visit [facility] [address] [place] [phone] Darrell Olsen MD [address] [place] [phone] [facility] Start: 10-29-2023 [facility] Start: 10-27-2023 Hospital admission [facility] Start: 10-27-2023 Referral to clinical souvenir street vendor [facility] Start: 10-22-2023 End: 10-22-2023 Admission to same day surgery center 10/22/2023 7:30 AM EST - 10/22/2023 9:15 AM EST Surgery [facility] - Surgery [address] [place] [phone] Darrell Olsen MD [address] [place] [address] [address] [place] [phone] LAMINECTOMY LUMBAR SINGLE LEVEL / L1-L2 [facility] Comment on above: LAMINECTOMY LUMBAR S RICHMOND LEVEL / L1-L2 Start: 10-22-2023 End: 10-22-2023 LAMINECTOMY LUMBAR SINGLE LEVEL LAMINECTOMY LUMBAR SINGLE LEVEL Spinal stenosis of lumbar region with neurogenic claudication 10/22/2023 7:30 AM EST [facility] Start: 10-22-2023 Subsequent hospital visit by physician 10/22/2023 7:30 AM EST Hospital Encounter [facility] [address] [place] [phone] Darrell Olsen MD [address] [place] [address] [address] [place] [phone] [facility] Start: 10-08-2023 End: 10-08-2023 Patient encounter procedure 10/08/2023 1:15 PM EST Procedure visit [facility] On [address] [phone] [facility] Start: 09-23-2023 End: 09-23-2023 Patient encounter procedure 09/23/2023 11:50 AM EST Office Visit [facility] [address] [place] [phone] Darrell Olsen MD [address] [place] [address] [address] [place] [phone] [facility] Start: 09-02-2023 End: 09-02-2024 XR Lumbar spine Views AP W right bending and W left bending [facility] Work Phone: Comment on above: Expected: 09/02/2023 , Expires: 09/02/2024 Start: 09-02-2023 End: 09-02-2023 Patient encounter procedure 09/02/2023 10:15 AM EST Office Visit [facility] [address] [place] [phone] Darrell Olsen MD [address] [place] [address] [address] [place] [address] [facility] Start: 1987 Adult BMI Follow Up Plan Adult BMI Follow Up Plan [facility] Start: 1981 Depression Screening Depression Scre ening [facility] End: 09-01-2024 CT Lumbar spine WO contrast CT lumbar spine without contrast Imaging Routine Spinal stenosis of lumbar region with neurogenic claudication History of lumbar fusion Radiculopathy, lumbar region Lumbar radiculopathy 1 Occurrences starting 09/02/2023 until 09/01/2024 [facility] Comment on above: 1 Occurrences starti ng 09/02/2023 until 09/01/2024 Patient Education Spinal Stenosi s (DC) Spinal Fusion (DC) [facility] Work Phone: Patient referral [facility] Work Phone: Immunizations Immunization Date Immunization Notes Care Provider Fa cility 05-19-2023 influenza virus vaccine, unspecified formulation [facility] [place] 04-28-2022 SARS-CoV-2 (COVID-19 ) [id number] Michel ROBB[facility] [place] 08-04-2021 SARS-CoV-2 (COVID-19 ) mRNA BNT-162b2 vax Michel ROBB[facility] [place] 11-16-2020 SARS-CoV-2 (COVID-19 ) mRNA BNT-162b2 vax Michel ROBB[facility] [place] 10-26-2020 SARS-CoV-2 (COVID-19 ) mRNA BNT-162b2 vax Michel ROBB[facility] [place] Payers Date Payer Category Payer Medicare [id number] 2023 Medicare [employer]OTED [employer] P [facility] MEDICARE DEVOTED HEALTH MEDICARE ADVANTAGE [id number] 2023-Present [phone] [address] [place] [address] [id number] 2023 Medicare O [employer]OTED [employer] EDICARE ADVANTAGE [id number] 2023 Unknown [employer]OTED HE[employer] P [place] DEVOTED HEALTH MEDICARE ADVANTAGE [id number] 2023-Present [phone] [address] [place] [address] [id number] .[id number] 2023 Medicare [id number] 2023 Self-pay [id number] 1970 Unknown [id number] 2.16.840.1.452695.3.579.2 .593 1970 Unknown [id number] 2.16.840.1.991291.3.579.2 .593 1969 Unknown [id number] 2.16.840.1.582818.3.579.2 .593 1969 Unknown [id number] 2.16.840.1.488385.3.579.2 .593 1969 Unknown [id number] 2.16.840.1.443058.3.579.2 .6 1969 Unknown [id number] 2.16.840.1.473190.3.579.2 .1285 1969 Unknown [id number] 2.16.840.1.248592.3.579.2 .1285 1969 Unknown [id number] 2.16.840.1.026402.3.579.2 .1285 1969 Unknown [id number] 2.16.840.1.528558.3.579.2 .1285 1969 Unknown [id number] 2.16.840.1.468030.3.579.2 .1285 1969 Unknown [id number] 2.16.840.1.000624.3.579.2 .1285 1969 Unknown [id number] 2.16.840.1.046896.3.579.2 .1285 1969 Unknown [id number] 2.16.840.1.245009.3.579.2 .1285 1969 Unknown [id number] 2.16.840.1.328764.3.579.2 .1285 1969 Unknown [id number] 2.16.840.1.914719.3.579.2 .1285 1969 Unknown [id number] 2.16.840.1.598336.3.579.2 .1285 1969 Unknown [id number] 2.16.840.1.416318.3.579.2 .7 1969 Unknown [id number] 2.16.840.1.123460.3.579.2 .1969 Unknown [id number] 2.16.840.1.761284.3.579.2 .7 1969 Unknown [id number] 2.16.840.1.273930.3.579.2 .1285 1969 Unknown [id number] 2.16.840.1.996409.3.579.2 .1285 1969 Unknown [id number] 2.16.840.1.949187.3.579.2 .1285 1969 Unknown [id number] 2.16.840.1.805779.3.579.2 .1285 1969 Unknown [id number] 2.16.840.1.099272.3.579.2 .1285 1969 Unknown [id number] 2.16.840.1.273010.3.579.2 .1285 1969 Unknown [id number] 2.16.840.1.473746.3.579.2 .1285 1969 Unknown [id number] 2.16.840.1.278079.3.579.2 .1285 1969 Unknown [id number] 2.16.840.1.804834.3.579.2 .1285 1969 Unknown [id number] 2.16.840.1.998735.3.579.2 .1285 1969 Unknown [id number] 2.16.840.1.209180.3.579.2 .1285 1969 Unknown [id number] 2.16.840.1.496583.3.579.2 .1285 1969 Unknown [id number] 2.16.840.1.431058.3.579.2 .1285 1969 Unknown [id number] 2.16.840.1.968125.3.579.2 .1285 1969 Unknown [id number] 2.16.840.1.806201.3.579.2 .1285 1969 Unknown [id number] 2.16.840.1.148257.3.579.2 .1285 1969 Unknown [id number] 2.16.840.1.165655.3.579.2 .1286 1969 Unknown [id number] 2.16.840.1.753564.3.579.2 .1286 1969 Unknown [id number] 2.16.840.1.794015.3.579.2 .1286 1959 Unknown [id number] Private Health Insurance [id number] 2.16.840.1.688765.19 Unknown [id number] 2.16.840.1.293706.3.579.2 .531 Unknown [id number] 2.16.840.1.953370.3.579.2 .531 Unknown [id number] 2.16.840.1.944309.3.579.2 .531 Social History Date Type Detail Facility Start: 09-26-2020 End: 10-25-2023 Sex Assigned At [facility] Start: 05-29-2020 End: 10-08-2023 Tobacco smoking status ORIS Never smoked tobacco (finding) [facility] Start: 1970 Sex Assigned At Male [facility] Tobacco smoking status Never [facility] Start: 06-04-2022 End: 10-08-2023 Tobacco use and exposure Former smokeless tobacco user [facility] End: 08-16-1996 History of tobacco use Chews Tobacco [facility] Start: 06-27-2024 End: 10-05-2024 Alcoholic beverage intake Ex-drinker (finding) [facility] Start: 09-26-2020 End: 10-25-2023 History of Social function [facility] Has the [employer], [employer], my[employer], or water [employer] threatened to shut off services in your home in past 12Mo No [facility] Start: 01-24-2018 Alcohol Comment stopped 18 months ag o [facility] Start: 1970 Sex assigned at Not on file [facility] Start: 03-21-2015 Sex Male (finding) [facility] Medical Equipment Procedure Code Equipment Code Equipment Origin al Text Equipment Identifier Dates Fusion, spine, lumbar, XLIF CANCELLOUS 7.5 CRUSHED FDA Start: 05-29-2020 Fusion, spine, lumbar, XLIF Bone-screw internal spinal fixation system, non-sterile [id number] FDA Start: 05-29-2020 Fusion, spine, lumbar, XLIF CANCELLOUS COARSE 7.5CC FDA Start: 05-29-2020 Fusion, spine, lumbar, XLIF Orthopaedic bone screw, non-bioabsorbable, non-sterile [id number] FDA Start: 05-29-2020 Fusion, spine, lumbar, XLIF Orthopaedic bone screw, non-bioabsorbable, non-sterile +[id number] FDA Start: 05-29-2020 Fusion, spine, lumbar, XLIF STRATOFUSE DBM 10CC FDA Start: 05-29-2020 Fusion, spine, lumbar, XLIF Bone-screw internal spinal fixation system, non-sterile +[id number] FDA Start: 05-29-2020 Fusion, spine, lumbar, XLIF Bone-screw internal spinal fixation system, non-sterile +[id number] FDA Start: 05-29-2020 Fusion, spine, lumbar, XLIF STRATOFUSE DBM 5CC FDA Start: 05-29-2020 Fusion, spine, lumbar, XLIF Spinal fusion graft kit ([id number] FDA Start: 05-29-2020 Fusion, spine, lumbar, XLIF Metallic spinal fusion cage, non-sterile [id number] FDA Start: 05-29-2020 Fusion, spine, lumbar, XLIF Metallic spinal fusion cage, non-sterile ()[id number] FDA Start: 05-29-2020 Fusion, spine, lumbar, XLIF Polymeric spinal interbody fusion cage ()[id number] FDA Start: 05-29-2020 Fusion, spine, lumbar, XLIF [...] Start: 05-29-2020 Kt Repr Shldr Ea=Bill-Only - [id number] - [id number] Start: 06-07-2018 Goals Date Patient Goal Desired Activity /State Personal health goal Comment on above: Formatting of this n ote might be different from the original. Evaluation of progress towards goal: Patient will discharge to inpatient rehab versus Home health care. - Yakov Mary RN 10/25/23 12:13 PM Functional Status Date Assessment Result Facility 11-16-2023 Functional Status N/A General Leyva rgkyle Simons 10-27-2023 Functional status Patient Not at Baseline [facility] Work Phone: Mental Status Date Assessment Result Facility 10-27-2023 Cognitive function Cognitive Sta tus Patient Not at Baseline [facility] Work Phone: Clinical Notes 06-07-2018 to 10-05-2024 CHIQUITA Wong - 10/05/2024 1:30 PM MARIA EUGENIAMattCHIQUITA Roque - 08/29/2024 1:00 PM ESTPatient InstructionsTelephone Encounter - Kathy Ziegler CNA - 08/22/2024 11:10 AM ESTPatient Instructions Note Date & Type Note Facility 10-05-2024 History of Presen t illness Narrative [facility] [address] [place] [address] Patient: Celestino Ziegler Sex: male : 1970 Age: 54 y.o. PCP: DONNA HERRERA MD 10/05/2024 Celestino Ziegler is here for a(n) post procedure follow up 09/15/2024 right L1,2 nerve root injection with 90% relief of leg pain that continues. Date of onset of pain: Childhood , pain has lasted greater than 3 months. Pain scale before treatment: 8/10 Pre-op pain score: 6/10 Post-op pain score: 2/10 Percentage and duration of relief after treatment: see above Pain scale after treatment: 1-09/25 leg 5/ back Chief Complaint Patient presents with Back Pain HPI: October 2023 Patient had laminectomy with Dr Olsen. Patient completed Aquatic Therapy 6-8 sessions. Last session 01-14-2024 and they discharged him due to being no help. Patient states he plans on open swimming at the pool. Bilateral SI joint injection on 10/20/2021 with [...] Left SI RFA 90-95% relief that continues post procedure follow up 09/15/2024 right L1,2 nerve root injection with 90% relief of leg pain that continues. Back Pain This is a chronic problem. The current episode started more than 1 year ago (childhood). The problem occurs daily. The problem has been gradually improving (post right L1,2 NR) since onset. The pain is present in the lumbar spine. The quality of the pain is described as aching. The pain radiates to the right thigh and left thigh (soreness). The pain is at a severity of 5/10 (5/10 in the mornig, pain decreases as day progresses). The pain is moderate. Worse during: pain is aggrevated with lying down and worse upon rising. The symptoms are aggravated by bending, twisting, sitting, position and standing (heavy lifting, walking, stairs, standing, twisting and bending ). Stiffness is present In the morning. Associated symptoms include leg pain (anterior aspect of thighs). Pertinent negatives include no abdominal pain, [...] Performed by Jr Christian Estrada DO at [facility] ARTHROSCOPY REPAIR ROTATOR CUFF SHOULDER Left 06/07/2018 Performed by Jr Christian Estrada DO at [facility] ARTHROSCOPY SHOULDER Left 06/07/2018 Performed by Jr Christian Estrada DO at [facility] INJECTION BLOCK SACROILIAC JOINT Bilateral 02/04/2024 Performed by Dave Garcia MD at [facility] INJECTION BLOCK SACROILIAC JOINT Bilateral 06/04/2023 Performed by Dave Garcia MD at [facility] IN[facility]CTION BLOCK SACROILIAC JOINT Bilateral 03/19/2023 Performed by Dave Garcia MD at [facility] IN[facility] BLOCK SACROILIAC JOINT Bilateral 01/15/2023 Performed by Dave Garcia MD at [facility] IN[facility]CTION BLOCK SACROILIAC JOINT Bilateral 09/04/2022 Performed by Dave Garcia MD at [facility] IN[facility] BLOCK SACROILIAC JOINT Right 05/22/2022 Performed by Dave Garcia MD at [facility] IN[facility]CTION BLOCK SACROILIAC JOINT Bilateral 02/20/2022 Performed by Dave Garcia MD at [facility] IN[facility]CTION BLOCK SACROILIAC JOINT Bilateral 10/20/2021 Performed by Dave Garcia MD at [facility] IN[facility] BLOCK SACROILIAC JOINT Bilateral 12/13/2020 Performed by Dave Garcia MD at [facility] INJECTION BURSA LARGE JOINT Right hip intra-articular Right 02/21/2021 Performed by Dave Garcia MD at [facility] INJECTION BURSA LARGE JOINT: right hip Right 03/27/2022 Performed by Dave Garcia MD at [facility] IN[facility] CAUDAL EPIDURAL WITH CATHETER, STEROID N/A 02/23/2020 Performed by Dave Garcia MD at [facility] IN[facility] CAUDAL EPIDURAL WITH CATHETER, STEROID N/A 01/15/2020 Performed by Dave Garcia MD at [facility] CAUDAL EPIDURAL WITH CATHETER, STEROID N/A 06/23/2019 Performed by Dave Garcia MD at [facility] IN[facility] CAUDAL EPIDURAL WITH CATHETER, STEROID N/A 05/05/2019 Performed by Dave Garcia MD at [facility] IN[facility] CAUDAL EPIDURAL WITH CATHETER, STEROID N/A 08/12/2018 Performed by Dave Garcia MD at [facility] IN[facility] CAUDAL EPIDURAL WITH CATHETER, STEROID 1 of 2 N/A 01/28/2018 Performed by Dave Garcia MD at [facility] IN[facility] CAUDAL EPIDURAL WITH CATHETER, STEROID 2 of 2 N/A 02/11/2018 Performed by Dave Garcia MD at [facility] SPINE TRANSFORAMINAL Left L 1,2 Nroot Left 01/24/2021 Performed by Dave Garcia MD at [facility] SPINE TRANSFORAMINAL: left L 1,2 nroot Left 04/17/2022 Performed by Dave Garcia MD at [facility] INJECTION SPINE TRANSFORAMINAL: right L 1,2 Nroot Right 09/15/2024 Performed by Dave Garcia MD at [facility] INJECTION SPINE TRANSFORAMINAL: right L 1,2 nroot Right 04/16/2023 Performed by Dave Garcia MD at [facility] LAMINECTOMY LUMBAR SINGLE LEVEL / L1-L2 N/A 10/22/2023 Performed by Darrell Olsen MD at [facility] LUMBAR FUSION 2020 L2-S1 RADIOFREQUENCY ABLATION SPINAL: left SI Left 05/12/2024 Performed by Dave Garcia MD at [facility] RADIOFREQUENCY ABLATION SPINAL: right SI Right 04/28/2024 Performed by Dvae Garcia MD at [facility] REFRACTIVE SURGERY Bilateral No Known Allergies [...] on file Food Insecurity: No Food Insecurity (10/05/2024) Hunger Screening Food Insecurity - Worry: Never [...] Review of Systems Constitutional: Negative for fever. Respiratory: Negative for cough and shortness of breath. Cardiovascular: Negative for chest pain. Gastrointestinal: Negative for abdominal pain and bowel incontinence. Genitourinary: Negative. Negative for bladder incontinence. Musculoskeletal: Positive for back pain. Skin: Negative. Neurological: Negative for tingling, weakness and numbness. Psychiatric/Behavioral: Negative. Vital Signs: BP 121/75 Pulse 90 Resp 16 SpO2 100% Physical Exam: GENERAL - Healthy patient that [...] to touch or pinprick in all dermatomal distributionss. Straight Leg Raise is negative. Gait is antalgic. Assessment/Treatment Plan: Celestino was seen today for back pain. Diagnoses and all orders for this visit: Lumbosacral spondylosis without myelopathy Continue Gabapentin 800 mg TID and Diclofenac 75 mg BID Monitor Follow up 2 months The medications I have prescribed have [...] explain the condition. OARRS: Reviewed. Scribe Statement: IKathy CNA, scribed for and in the presence of CHIQUITA WONG who performed the above service. Provider Statement: XU Carr PA, personally performed the services described in the documentation, as scribed by Kathy Ziegler CNA in my presence, and it is both accurate and complete. Kathy Ziegler CNA 10/05/24 1441 CHIQUITA Wong 10/10/24 1145 documented in this encounter [facility] 08-29-2024 History of Presen t illness Narrative [facility] [address] [place] [address] Patient: Celestino Beach Anabela Sex: male : 1970 Age: 54 y.o. PCP: DONNA HERRERA MD 08/29/2024 Celestino Ziegler is here [...] lumbar region with neurogenic claudication Visual impairment mikayla Past Surgical History: Procedure Laterality Date ARTHROSCOPY REPAIR LESION SUPERIOR LABRUM EXTENDING FROM ANTERIOR TO POSTERIOR (SLAP) SHOULDER Left 06/07/2018 Performed by Jr Christian Estrada DO at [facility] ARTHROSCOPY REPAIR ROTATOR CUFF SHOULDER Left 06/07/2018 Performed by Jr Christian Estrada DO at [facility] ARTHROSCOPY SHOULDER Left 06/07/2018 Performed by Jr Christian Estrada DO at [facility] INJECTION BLOCK SACROILIAC JOINT Bilateral 02/04/2024 Performed by Dave Garcia MD at [facility] INJECTION BLOCK SACROILIAC JOINT Bilateral 06/04/2023 Performed by Dave Garcia MD at [facility] INJECTION BLOCK SACROILIAC JOINT Bilateral 03/19/2023 Performed by Dave Garcia MD at [facility] INJECTION BLOCK SACROILIAC JOINT Bilateral 01/15/2023 Performed by Dave Garcia MD at [facility] INJECTION BLOCK SACROILIAC JOINT Bilateral 09/04/2022 Performed by Dave Garcia MD at [facility] IN[facility]CTION BLOCK SACROILIAC JOINT Right 05/22/2022 Performed by Dave Garcia MD at [facility] INJECTION BLOCK SACROILIAC JOINT Bilateral 02/20/2022 Performed by Dave Garcia MD at [facility] INJECTION BLOCK SACROILIAC JOINT Bilateral 10/20/2021 Performed by Dave Garcia MD at [facility] IN[facility]CTION BLOCK SACROILIAC JOINT Bilateral 12/13/2020 Performed by Dave Garcia MD at [facility] INJECTION BURSA LARGE JOINT Right hip intra-articular Right 02/21/2021 Performed by Dave Garcia MD at [facility] INJECTION BURSA LARGE JOINT: right hip Right 03/27/2022 Performed by Dave Garcia MD at [facility] INJECTION CAUDAL EPIDURAL WITH CATHETER, STEROID N/A 02/23/2020 Performed by Dave Garcia MD at [facility] INJECTION CAUDAL EPIDURAL WITH CATHETER, STEROID N/A 01/15/2020 Performed by Dave Garcia MD at [facility] INJECTION CAUDAL EPIDURAL WITH CATHETER, STEROID N/A 06/23/2019 Performed by Dave Garcia MD at [facility] IN[facility] CAUDAL EPIDURAL WITH CATHETER, STEROID N/A 05/05/2019 Performed by Dave Garcia MD at [facility] IN[facility]CTION CAUDAL EPIDURAL WITH CATHETER, STEROID N/A 08/12/2018 Performed by Dave Garcia MD at [facility] IN[facility] CAUDAL EPIDURAL WITH CATHETER, STEROID 1 of 2 N/A 01/28/2018 Performed by Dave Garcia MD at [facility] INJECTION CAUDAL EPIDURAL WITH CATHETER, STEROID 2 of 2 N/A 02/11/2018 Performed by Dave Garcia MD at [facility] INJECTION SPINE TRANSFORAMINAL Left L 1,2 Nroot Left 01/24/2021 Performed by Dave Garcia MD at [facility] INJECTION SPINE TRANSFORAMINAL: left L 1,2 nroot Left 04/17/2022 Performed by Dave Garcia MD at [facility] INJECTION SPINE TRANSFORAMINAL: right L 1,2 nroot Right 04/16/2023 Performed by Dave Garcia MD at [facility] LAMINECTOMY LUMBAR SINGLE LEVEL / L1-L2 N/A 10/22/2023 Performed by Darrell Olsen MD at [facility] LUMBAR FUSION 2020 L2-S1 RADIOFREQUENCY ABLATION SPINAL: left SI Left 05/12/2024 Performed by Dave Garcia MD at [facility] RADIOFREQUENCY ABLATION SPINAL: right SI Right 04/28/2024 Performed by Dave Garcia MD at [facility] REFRACTIVE SURGERY Bilateral No Known Allergies [...] who performed the above service. Provider Statement: UX Carr PA, personally performed the services described in the documentation, as scribed by Kathy Ziegler CNA in my presence, and it is both accurate and complete. Kathy Ziegler CNA 08/29/24 1409 CHIQUITA Wong 08/29/24 1512 documented in this encounter [facility] 08-29-2024 Instructions Kathy Ziegler CNA - 08/29/2024 1:00 PM EST Epidural Steroid [...] a safety precaution, you must have a driver manager after a lumbar nerve root injection, even [...] back to normal. documented in this encounter [facility] 08-22-2024 Miscellaneous Notes Last OV: 06/27/24 Next OV: 09/01/24 OARRS appropriate: yes Last UDS: na Pharmacy: [facility] [place] documented in this encounter [facility] 08-22-2024 Telephone encounter Note Last OV: 06/27/24 Next OV: 09/01/24 OARRS appropriate: yes Last UDS: na Pharmacy: [facility] [place] [facility] 06-27-2024 History of Presen t illness Narrative [facility] [address] [place] [address] Patient: Celestino Ziegler Sex: male : 1970 Age: 54 y.o. PCP: DONNA HERRERA MD 06/27/2024 Celestino Beach Nikkyisaias is here for a(n) post procedure follow [...] than 3 months. Pain scale before treatment: 11/23 Pre-op pain score: 3/10 Percentage of relief [...] Performed by Jr Christian Estrada DO at [facility] ARTHROSCOPY REPAIR ROTATOR CUFF SHOULDER Left 06/07/2018 Performed by Jr Christian Estrada DO at [facility] ARTHROSCOPY SHOULDER Left 06/07/2018 Performed by Jr Christian Estrada DO at [facility] INJECTION BLOCK SACROILIAC JOINT Bilateral 02/04/2024 Performed by Dave Garcia MD at [facility] IN[facility]CTION BLOCK SACROILIAC JOINT Bilateral 06/04/2023 Performed by Dave Garcia MD at [facility] INJECTION BLOCK SACROILIAC JOINT Bilateral 03/19/2023 Performed by Dave Garcia MD at [facility] INJECTION BLOCK SACROILIAC JOINT Bilateral 01/15/2023 Performed by Dave Garcia MD at [facility] INJECTION BLOCK SACROILIAC JOINT Bilateral 09/04/2022 Performed by Dave Garcia MD at [facility] INJECTION BLOCK SACROILIAC JOINT Right 05/22/2022 Performed by Dave Garcia MD at [facility] INJECTION BLOCK SACROILIAC JOINT Bilateral 02/20/2022 Performed by Dave Garcia MD at [facility] INJECTION BLOCK SACROILIAC JOINT Bilateral 10/20/2021 Performed by Dave Garcia MD at [facility] INJECTION BLOCK SACROILIAC JOINT Bilateral 12/13/2020 Performed by Dave Garcia MD at [facility] IN[facility] BURSA LARGE JOINT Right hip intra-articular Right 02/21/2021 Performed by Dave Garcia MD at [facility] IN[facility] BURSA LARGE JOINT: right hip Right 03/27/2022 Performed by Dave Garcia MD at [facility] IN[facility] CAUDAL EPIDURAL WITH CATHETER, STEROID N/A 02/23/2020 Performed by Dave Garcia MD at [facility] IN[facility] CAUDAL EPIDURAL WITH CATHETER, STEROID N/A 01/15/2020 Performed by Dave Garcia MD at [facility] IN[facility] CAUDAL EPIDURAL WITH CATHETER, STEROID N/A 06/23/2019 Performed by Dave Garcia MD at [facility] IN[facility] CAUDAL EPIDURAL WITH CATHETER, STEROID N/A 05/05/2019 Performed by Dave Garcia MD at [facility] IN[facility] CAUDAL EPIDURAL WITH CATHETER, STEROID N/A 08/12/2018 Performed by Dave Garcia MD at [facility] IN[facility] CAUDAL EPIDURAL WITH CATHETER, STEROID 1 of 2 N/A 01/28/2018 Performed by Dave Garcia MD at [facility] IN[facility] CAUDAL EPIDURAL WITH CATHETER, STEROID 2 of 2 N/A 02/11/2018 Performed by Dave Garcia MD at [facility] SPINE TRANSFORAMINAL Left L 1,2 Nroot Left 01/24/2021 Performed by Dave Garcia MD at [facility] INJECTION SPINE TRANSFORAMINAL: left L 1,2 nroot Left 04/17/2022 Performed by Dave Garcia MD at [facility] INJECTION SPINE TRANSFORAMINAL: right L 1,2 nroot Right 04/16/2023 Performed by Dave Garcia MD at [facility] LAMINECTOMY LUMBAR SINGLE LEVEL / L1-L2 N/A 10/22/2023 Performed by Darrell Olsen MD at [facility] LUMBAR FUSION 2019 L2-S1 RADIOFREQUENCY ABLATION SPINAL: left SI Left 05/12/2024 Performed by Dave Garcia MD at [facility] RADIOFREQUENCY ABLATION SPINAL: right SI Right 04/28/2024 Performed by Dave Garcia MD at [facility] REFRACTIVE SURGERY Bilateral No Known Allergies [...] accurate and complete. Kathy Ziegler CNA 06/27/24 1334 CHIQUITA Wong 07/06/24 1218 documented in this encounter [facility] 06-07-2024 Miscellaneous Notes Last OV: RFA 05/12 Next OV: 06/27 OARRS appropriate: yes Last UDS: na Pharmacy: [facility] [place] documented in this encounter [facility] 06-07-2024 Telephone encounter Note Last OV: RFA 05/12 Next OV: 06/27 OARRS appropriate: yes Last UDS: na Pharmacy: [facility] [place] [facility] 04-13-2024 History of Presen t illness Narrative [facility] [address] [place] [address] Patient: Celestino Ziegler Sex: male : 1970 Age: 53 y.o. PCP: DONNA HERRERA MD 04/13/2024 Celestino Ziegler is here [...] Impairment. Past Medical History: Diagnosis Date Alcoholism ([facility]) Anemia Asthma Back pain Chronic pain disorder Cough Environmental allergies Hypertension history of this, not currently treated Hypothyroidism Low back pain Neck pain Spinal stenosis of lumbar region with neurogenic claudication Visual impairment lasik Past Surgical History: Procedure Laterality Date ARTHROSCOPY REPAIR LESION SUPERIOR LABRUM EXTENDING FROM ANTERIOR TO POSTERIOR (SLAP) SHOULDER Left 06/07/2018 Performed by Jr Christian Estrada DO at [facility] ARTHROSCOPY REPAIR ROTATOR CUFF SHOULDER Left 06/07/2018 Performed by Jr Christian Estrada DO at [facility] ARTHROSCOPY SHOULDER Left 06/07/2018 Performed by Jr Christian Estrada DO at [facility] INJECTION BLOCK SACROILIAC JOINT Bilateral 02/04/2024 Performed by Dave Garcia MD at [facility] BLOCK SACROILIAC JOINT Bilateral 06/04/2023 Performed by Dave Garcia MD at [facility] BLOCK SACROILIAC JOINT Bilateral 03/19/2023 Performed by Dave Garcia MD at [facility] BLOCK SACROILIAC JOINT Bilateral 01/15/2023 Performed by Dave Garcia MD at [facility] BLOCK SACROILIAC JOINT Bilateral 09/04/2022 Performed by Dave Garcia MD at [facility] BLOCK SACROILIAC JOINT Right 05/22/2022 Performed by Dave Garcia MD at [facility] BLOCK SACROILIAC JOINT Bilateral 02/20/2022 Performed by Dave Garcia MD at [facility] IN[facility] BLOCK SACROILIAC JOINT Bilateral 10/20/2021 Performed by Dave Garcia MD at [facility] BLOCK SACROILIAC JOINT Bilateral 12/13/2020 Performed by Dave Garcia MD at [facility] INJECTION BURSA LARGE JOINT Right hip intra-articular Right 02/21/2021 Performed by Dave Garcia MD at [facility] INJECTION BURSA LARGE JOINT: right hip Right 03/27/2022 Performed by Dave Garcia MD at [facility] CAUDAL EPIDURAL WITH CATHETER, STEROID N/A 02/23/2020 Performed by Dave Garcia MD at [facility] CAUDAL EPIDURAL WITH CATHETER, STEROID N/A 01/15/2020 Performed by Dave Garcia MD at [facility] CAUDAL EPIDURAL WITH CATHETER, STEROID N/A 06/23/2019 Performed by Dave Garcia MD at [facility] CAUDAL EPIDURAL WITH CATHETER, STEROID N/A 05/05/2019 Performed by Dave Garcia MD at [facility] CAUDAL EPIDURAL WITH CATHETER, STEROID N/A 08/12/2018 Performed by Dave Garcia MD at [facility] CAUDAL EPIDURAL WITH CATHETER, STEROID 1 of 2 N/A 01/28/2018 Performed by Dave Garcia MD at [facility] INJECTION CAUDAL EPIDURAL WITH CATHETER, STEROID 2 of 2 N/A 02/11/2018 Performed by Dave Garcia MD at [facility] SPINE TRANSFORAMINAL Left L 1,2 Nroot Left 01/24/2021 Performed by Dave Garcia MD at [facility] SP[facility] TRANSFORAMINAL: left L 1,2 nroot Left 04/17/2022 Performed by Dave Garcia MD at [facility] SPINE TRANSFORAMINAL: right L 1,2 nroot Right 04/16/2023 Performed by Dave Garcia MD at [facility] LAMINECTOMY LUMBAR SINGLE LEVEL / L1-L2 N/A 10/22/2023 Performed by Darrell Olsen MD at [facility] LUMBAR [facility]USION 2019 L2-S1 REFRACTIVE SURGERY Bilateral [...] Wong 04/13/24 1509 documented in this encounter [facility] 04-13-2024 Instructions Kathy Ziegler CNA - 04/13/2024 [...] back to normal. documented in this encounter [facility] 04-04-2024 Miscellaneous Notes Last Office Visit: 02/22/24 Next Office Visit: 04/13/2024 Last Urine Drug Screen: No results found for: BENZOSCRN OARRS appropriate documented in this encounter [facility] 04-04-2024 Telephone encounter Note Last Office Visit: 02/22/24 Next Office Visit: 04/13/2024 Last Urine Drug Screen: No results found for: BENZOSCRN OARRS appropriate [facility] 02-22-2024 History of Presen t illness Narrative [facility] [address] [place] [address] Patient: Celestino Ziegler Sex: male : 1970 Age: 53 y.o. PCP: DONNA HERRERA MD 02/22/2024 Celestino Ziegler is here [...] Impairment. Past Medical History: Diagnosis Date Alcoholism ([facility]) Anemia Asthma Back pain Chronic pain disorder Cough Environmental allergies Hypertension history of this, not currently treated Hypothyroidism Low back pain Neck pain Spinal stenosis of lumbar region with neurogenic claudication Visual impairment lasik Past Surgical History: Procedure Laterality Date ARTHROSCOPY REPAIR LESION SUPERIOR LABRUM EXTENDING FROM ANTERIOR TO POSTERIOR (SLAP) SHOULDER Left 06/07/2018 Performed by Jr Christian Estrada DO at [facility] ARTHROSCOPY REPAIR ROTATOR CUFF SHOULDER Left 06/07/2018 Performed by Jr Christian Estrada DO at [facility] ARTHROSCOPY SHOULDER Left 06/07/2018 Performed by Jr Christian Estrada DO at [facility] INJECTION BLOCK SACROILIAC JOINT Bilateral 02/04/2024 Performed by Dave Garcia MD at [facility] INJECTION BLOCK SACROILIAC JOINT Bilateral 06/04/2023 Performed by Dave Garcia MD at [facility] BLOCK SACROILIAC JOINT Bilateral 03/19/2023 Performed by Dave Garcia MD at [facility] BLOCK SACROILIAC JOINT Bilateral 01/15/2023 Performed by Dave Garcia MD at [facility] BLOCK SACROILIAC JOINT Bilateral 09/04/2022 Performed by Dave Garcia MD at [facility] BLOCK SACROILIAC JOINT Right 05/22/2022 Performed by Dave Garcia MD at [facility] IN[facility] BLOCK SACROILIAC JOINT Bilateral 02/20/2022 Performed by Dave Garcia MD at [facility] IN[facility] BLOCK SACROILIAC JOINT Bilateral 10/20/2021 Performed by Dave Garcia MD at [facility] IN[facility] BLOCK SACROILIAC JOINT Bilateral 12/13/2020 Performed by Dave Garcia MD at [facility] INJECTION BURSA LARGE JOINT Right hip intra-articular Right 02/21/2021 Performed by Dave Garcia MD at [facility] INJECTION BURSA LARGE JOINT: right hip Right 03/27/2022 Performed by Dave Garcia MD at [facility] CAUDAL EPIDURAL WITH CATHETER, STEROID N/A 02/23/2020 Performed by Dave Garcia MD at [facility] CAUDAL EPIDURAL WITH CATHETER, STEROID N/A 01/15/2020 Performed by Dave Garcia MD at [facility] IN[facility] CAUDAL EPIDURAL WITH CATHETER, STEROID N/A 06/23/2019 Performed by Dave Garcia MD at [facility] CAUDAL EPIDURAL WITH CATHETER, STEROID N/A 05/05/2019 Performed by Dave Garcia MD at [facility] CAUDAL EPIDURAL WITH CATHETER, STEROID N/A 08/12/2018 Performed by Dave Garcia MD at [facility] CAUDAL EPIDURAL WITH CATHETER, STEROID 1 of 2 N/A 01/28/2018 Performed by Dave Garcia MD at [facility] CAUDAL EPIDURAL WITH CATHETER, STEROID 2 of 2 N/A 02/11/2018 Performed by Dave Garcia MD at [facility] SPINE TRANSFORAMINAL Left L 1,2 Nroot Left 01/24/2021 Performed by Dave Garcia MD at [facility] SPINE TRANSFORAMINAL: left L 1,2 nroot Left 04/17/2022 Performed by Dave Garcia MD at [facility] SPINE TRANSFORAMINAL: right L 1,2 nroot Right 04/16/2023 Performed by Dave Garcia MD at [facility] LAMINECTOMY LUMBAR SINGLE LEVEL / L1-L2 N/A 10/22/2023 Performed by Darrell Olsen MD at [facility] L[facility] 2019 L2-S1 REFRACTIVE SURGERY Bilateral [...] Wong 02/24/24 0917 documented in this encounter [facility] 02-10-2024 History of Presen t illness Narrative Images from the original note were not included. [facility] [address] [place] [address], [address] [place] [address] * CHART NOTE ? 02/10/2024 Patient: Celestino Ziegler 1970 [id number] Nurse Practitioner: Charles Tim, INSPECTOR EXPERIMENTAL ASSEMBLY Physician: Darrell Olsen MD, FAANS IMPRESSION / [...] tingling into the BLE. Denies loss of radiology supervisor strength, saddle anesthesia, urinary or bowel dysfunction, weakness, and loss of balance. Patient does not use an assistive device for ambulation. Patient is not diabetic and not a smoker. Hx of L2-S1 fusion with Dr. Cadet in 2019. PAST MEDICAL HISTORY Past Medical History: Diagnosis Date Alcoholism ([facility]) Anemia Asthma Back pain Chronic pain disorder [...] Performed by Jr Christian Estrada DO at [facility] ARTHROSCOPY REPAIR ROTATOR CUFF SHOULDER Left 06/07/2018 Performed by Jr Christian Estrada DO at [facility] ARTHROSCOPY SHOULDER Left 06/07/2018 Performed by Jr Christian Estrada DO at [facility] INJECTION BLOCK SACROILIAC JOINT Bilateral 02/04/2024 Performed by Dave Garcia MD at [facility] IN[facility] BLOCK SACROILIAC JOINT Bilateral 06/04/2023 Performed by Dave Garcia MD at [facility] IN[facility] BLOCK SACROILIAC JOINT Bilateral 03/19/2023 Performed by Dave Garcia MD at [facility] IN[facility] BLOCK SACROILIAC JOINT Bilateral 01/15/2023 Performed by Dave Garcia MD at [facility] IN[facility] BLOCK SACROILIAC JOINT Bilateral 09/04/2022 Performed by Dave Garcia MD at [facility] IN[facility] BLOCK SACROILIAC JOINT Right 05/22/2022 Performed by Dave Garcia MD at [facility] IN[facility] BLOCK SACROILIAC JOINT Bilateral 02/20/2022 Performed by Dave Garcia MD at [facility] IN[facility] BLOCK SACROILIAC JOINT Bilateral 10/20/2021 Performed by Dave Garcia MD at [facility] IN[facility] BLOCK SACROILIAC JOINT Bilateral 12/13/2020 Performed by Dave Garcia MD at [facility] INJECTION BURSA LARGE JOINT Right hip intra-articular Right 02/21/2021 Performed by Dave Garcia MD at [facility] INJECTION BURSA LARGE JOINT: right hip Right 03/27/2022 Performed by Dave Garcia MD at [facility] CAUDAL EPIDURAL WITH CATHETER, STEROID N/A 02/23/2020 Performed by Dave Garcia MD at [facility] IN[facility] CAUDAL EPIDURAL WITH CATHETER, STEROID N/A 01/15/2020 Performed by Dave Garcia MD at [facility] IN[facility] CAUDAL EPIDURAL WITH CATHETER, STEROID N/A 06/23/2019 Performed by Dave Garcia MD at [facility] INJECTION CAUDAL EPIDURAL WITH CATHETER, STEROID N/A 05/05/2019 Performed by Dave Garcia MD at [facility] INJECTION CAUDAL EPIDURAL WITH CATHETER, STEROID N/A 08/12/2018 Performed by Dave Garcia MD at [facility] INJECTION CAUDAL EPIDURAL WITH CATHETER, STEROID 1 of 2 N/A 01/28/2018 Performed by Dave Garcia MD at [facility] INJECTION CAUDAL EPIDURAL WITH CATHETER, STEROID 2 of 2 N/A 02/11/2018 Performed by Dave Garcia MD at [facility] SPINE TRANSFORAMINAL Left L 1,2 Nroot Left 01/24/2021 Performed by Dave Garcia MD at [facility] SPINE TRANSFORAMINAL: left L 1,2 nroot Left 04/17/2022 Performed by Dave Garcia MD at [facility] SPINE TRANSFORAMINAL: right L 1,2 nroot Right 04/16/2023 Performed by Dave Garcia MD at [facility] LAMINECTOMY LUMBAR SINGLE LEVEL / L1-L2 N/A 10/22/2023 Performed by Darrell Olsen MD at [facility] L[facility] 2020 L2-S1 REFRACTIVE SURGERY Bilateral [...] record of the patient encounter. Inadvertent computerized signal tower director errors related to syntax, spelling, homophones, and/or inaudibility may be present. DI Cha 02/10/24 1224 documented in this encounter [facility] 02-10-2024 Instructions Denise Gracia - 02/10/2024 10:30 AM EDT Patient seen today by Astrid Patient to follow up PRN MORE documented in this encounter [facility] 02-03-2024 Note Chief Complaint consultation [...] (less than 10 (more content not included)... [facility] Comment on above: Result Comment: Elec tronically Signed By: ROSENDO OROURKE, Michel Sue\Date and Time Signed: 02/03/24 15:00 EDT 01-20-2024 History of Presen t illness Narrative [facility] [address] [place] [address] Patient: Celestino Ziegler Sex: male : 1970 Age: 53 y.o. PCP: DONNA HERRERA MD 01/20/2024 Celestino Ziegler is here for a(n) follow up after referral to [place] for Neurosurgery and patient had a laminectomy [...] Impairment. Past Medical History: Diagnosis Date Alcoholism ([facility]) Anemia Asthma Back pain Chronic pain disorder Cough Environmental allergies Hypertension history of this, not currently treated Hypothyroidism Low back pain Neck pain Spinal stenosis of lumbar region with neurogenic claudication Visual impairment lasik Past Surgical History: Procedure Laterality Date ARTHROSCOPY REPAIR LESION SUPERIOR LABRUM EXTENDING FROM ANTERIOR TO POSTERIOR (SLAP) SHOULDER Left 06/07/2018 Performed by Jr Christian Estrada DO at [facility] ARTHROSCOPY REPAIR ROTATOR CUFF SHOULDER Left 06/07/2018 Performed by Jr Christian Estrada DO at [facility] ARTHROSCOPY SHOULDER Left 06/07/2018 Performed by Jr Christian Estrada DO at [facility] INJECTION BLOCK SACROILIAC JOINT Bilateral 06/04/2023 Performed by Dave Garcia MD at [facility] IN[facility] BLOCK SACROILIAC JOINT Bilateral 03/19/2023 Performed by Dave Garcia MD at [facility] IN[facility]CTION BLOCK SACROILIAC JOINT Bilateral 01/15/2023 Performed by Dave Garcia MD at [facility] IN[facility] BLOCK SACROILIAC JOINT Bilateral 09/04/2022 Performed by Dave Garcia MD at [facility] IN[facility] BLOCK SACROILIAC JOINT Right 05/22/2022 Performed by Dave Garcia MD at [facility] IN[facility] BLOCK SACROILIAC JOINT Bilateral 02/20/2022 Performed by Dave Garcia MD at [facility] IN[facility] BLOCK SACROILIAC JOINT Bilateral 10/20/2021 Performed by Dave Garcia MD at [facility] IN[facility] BLOCK SACROILIAC JOINT Bilateral 12/13/2020 Performed by Dave Garcia MD at [facility] IN[facility] BURSA LARGE JOINT Right hip intra-articular Right 02/21/2021 Performed by Dave Garcia MD at [facility] IN[facility] BURSA LARGE JOINT: right hip Right 03/27/2022 Performed by Dave Garcia MD at [facility] IN[facility] CAUDAL EPIDURAL WITH CATHETER, STEROID N/A 02/23/2020 Performed by Dave Garcia MD at [facility] CAUDAL EPIDURAL WITH CATHETER, STEROID N/A 01/15/2020 Performed by Dave Garcia MD at [facility] IN[facility] CAUDAL EPIDURAL WITH CATHETER, STEROID N/A 06/23/2019 Performed by Dave Garcia MD at [facility] IN[facility] CAUDAL EPIDURAL WITH CATHETER, STEROID N/A 05/05/2019 Performed by Dave Garcia MD at [facility] CAUDAL EPIDURAL WITH CATHETER, STEROID N/A 08/12/2018 Performed by Dave Garcia MD at [facility] IN[facility] CAUDAL EPIDURAL WITH CATHETER, STEROID 1 of 2 N/A 01/28/2018 Performed by Dave Garcia MD at [facility] CAUDAL EPIDURAL WITH CATHETER, STEROID 2 of 2 N/A 02/11/2018 Performed by Dave Garcia MD at [facility] SPINE TRANSFORAMINAL Left L 1,2 Nroot Left 01/24/2021 Performed by Dave Garcia MD at [facility] SPINE TRANSFORAMINAL: left L 1,2 nroot Left 04/17/2022 Performed by Dave Garcia MD at [facility] SPINE TRANSFORAMINAL: right L 1,2 nroot Right 04/16/2023 Performed by Dave Garcia MD at [facility] LAMINECTOMY LUMBAR SINGLE LEVEL / L1-L2 N/A 10/22/2023 Performed by Darrell Olsen MD at [facility] 2019 L2-S1 REFRACTIVE SURGERY Bilateral [...] 01/20/24 1020 Kathy Ziegler CNA 01/20/24 1042 Kahty Ziegler CNA 01/20/24 1102 Kathy Ziegler CNA 01/20/24 1110 CHIQUITA Wong 01/20/24 1453 documented in this encounter [facility] 01-20-2024 Instructions Kathy Ziegler CNA [...] nearest emergency room. documented in this encounter [facility] 12-20-2023 Miscellaneous Notes Celestino calls stating [...] to call office. documented in this encounter [facility] 12-20-2023 Telephone encounter Note Celestino [...] discuss with the provider for further direction. [facility] 12-20-2023 Telephone encounter Note If he is able to take steroids, I could send an medrol chanell to try. If no relief from that, he may need to follow up sooner than his February appointment. Please let me know if he would like me to send the steroid chanell. [facility] 12-20-2023 Telephone encounter Note Call to Marie to call office. [facility] 12-02-2023 History of Presen t illness Narrative Images from the original note were not included. [facility] [address] [place] [address], [address] [place] [address] * CHART NOTE ? 12/02/2023 Patient: Celestino Ziegler 1970 [id number] Nurse Practitioner: Charles Tim, INSPECTOR EXPERIMENTAL ASSEMBLY Physician: Darrell Olsen MD, FAANS IMPRESSION / PLAN 53 y.o. male HISTORY OF PRESENT ILLNESS 53 y.o. male presents to the clinic as a post-op patient S/P S/P L1-2 laminectomy performed on 10-22-2023. Celestino reports he is no longer having the right low back and RLE pain but, approximately two weeks ago, he began having some pain the left low back that is exacerbated with walking and twisting. Denies loss of radiology supervisor strength, saddle anesthesia, urinary or bowel dysfunction, weakness, numbness or tingling, radicular symptoms, and loss of balance. Patient does not use an assistive device for ambulation. Patient is not diabetic and not a smoker. Hx of L2-S1 fusion with Dr. Cadet in 2019. PAST MEDICAL HISTORY Past Medical History: Diagnosis Date Alcoholism ([facility]) Anemia Asthma Back pain Chronic pain disorder [...] Performed by Jr Christian Estrada DO at [facility] ARTHROSCOPY REPAIR ROTATOR CUFF SHOULDER Left 06/07/2018 Performed by Jr Christian Estrada DO at [facility] ARTHROSCOPY SHOULDER Left 06/07/2018 Performed by Jr Christian Estrada DO at [facility] INJECTION BLOCK SACROILIAC JOINT Bilateral 06/04/2023 Performed by Dave Garcia MD at [facility] IN[facility] BLOCK SACROILIAC JOINT Bilateral 03/19/2023 Performed by Dave Garcia MD at [facility] IN[facility]CTION BLOCK SACROILIAC JOINT Bilateral 01/15/2023 Performed by Dave Garcia MD at [facility] IN[facility] BLOCK SACROILIAC JOINT Bilateral 09/04/2022 Performed by Dave Garcia MD at [facility] INJECTION BLOCK SACROILIAC JOINT Right 05/22/2022 Performed by Dave Garcia MD at [facility] BLOCK SACROILIAC JOINT Bilateral 02/20/2022 Performed by Dave Garcia MD at [facility] IN[facility] BLOCK SACROILIAC JOINT Bilateral 10/20/2021 Performed by Dave Garcia MD at [facility] IN[facility] BLOCK SACROILIAC JOINT Bilateral 12/13/2020 Performed by Dave Garcia MD at [facility] INJECTION BURSA LARGE JOINT Right hip intra-articular Right 02/21/2021 Performed by Dave Garcia MD at [facility] INJECTION BURSA LARGE JOINT: right hip Right 03/27/2022 Performed by Dave Garcia MD at [facility] CAUDAL EPIDURAL WITH CATHETER, STEROID N/A 02/23/2020 Performed by Dave Garcia MD at [facility] CAUDAL EPIDURAL WITH CATHETER, STEROID N/A 01/15/2020 Performed by Dave Garcia MD at [facility] CAUDAL EPIDURAL WITH CATHETER, STEROID N/A 06/23/2019 Performed by Dave Garcia MD at [facility] CAUDAL EPIDURAL WITH CATHETER, STEROID N/A 05/05/2019 Performed by Dave Garcia MD at [facility] CAUDAL EPIDURAL WITH CATHETER, STEROID N/A 08/12/2018 Performed by Dave Garcia MD at [facility] CAUDAL EPIDURAL WITH CATHETER, STEROID 1 of 2 N/A 01/28/2018 Performed by Dave Garcia MD at [facility] CAUDAL EPIDURAL WITH CATHETER, STEROID 2 of 2 N/A 02/11/2018 Performed by Dave Garcia MD at [facility] INJECTION SPINE TRANSFORAMINAL Left L 1,2 Nroot Left 01/24/2021 Performed by Dave Garcia MD at [facility] INJECTION SPINE TRANSFORAMINAL: left L 1,2 nroot Left 04/17/2022 Performed by Dave Garcia MD at [facility] INJECTION SPINE TRANSFORAMINAL: right L 1,2 nroot Right 04/16/2023 Performed by Dave Garcia MD at [facility] LAMINECTOMY LUMBAR SINGLE LEVEL / L1-L2 N/A 10/22/2023 Performed by Darrell Olsen MD at [facility] 2020 L2-S1 REFRACTIVE SURGERY Bilateral [...] record of the patient encounter. Inadvertent computerized signal tower director errors related to syntax, spelling, homophones, and/or inaudibility may be present. DI Cha 12/02/23 1641 documented in this encounter [facility] 12-02-2023 Instructions VIGNESH Hoover - 12/02/2023 3:00 PM EDT Patient was seen today by DI Resendiz Given medrol pack Aquatic therapy referral Patient was scheduled for a follow up in 3 months. JA documented in this encounter [facility] 11-26-2023 Miscellaneous Notes Images from [...] are contraindicated at this point post -op. Technical Mgr spoke with Radha who states patient had been informed NSAIDS could be used beginning 7 days post-op. New prescription for diclofenac is pended for review and signature if you agree. documented in this encounter [facility] 11-26-2023 Telephone encounter Note Images [...] are contraindicated at this point post -op. Technical Mgr spoke with Radha who states patient had been informed NSAIDS could be used beginning 7 days post-op. New prescription for diclofenac is pended for review and signature if you agree. [facility] 11-26-2023 Miscellaneous Notes Patient called for refill of diclofenac 75 mg. Noted he had a new prescription sent 09/16/23 for Diclofenac 75 mg BID with 5 refills. Left message for pt. He reports the pharmacy told him it was dc'd?? documented in this encounter [facility] 11-26-2023 Telephone encounter Note Patient called for refill of diclofenac 75 mg. Noted he had a new prescription sent 09/16/23 for Diclofenac 75 mg BID with 5 refills. Left message for pt. He reports the pharmacy told him it was dc'd?? [facility] 11-04-2023 History of Presen t illness Narrative Images from the original note were not included. [facility] [address] [place] [address], [place] [address] * CHART NOTE ? 11/10/2023 Patient: Celestino Ziegler 1970 [id number] Physician: Darrell Olsen MD CHIEF COMPLAINT Post-op HISTORY OF PRESENT ILLNESS 53 y.o. male presents to the office today as a post-op patient S/P L1-2 laminectomy performed on 10-22-2023. Patient advises that he has been doing very well and is no longer having any of his pre-operative symptoms like the back or radicular pain. Denies loss of radiology supervisor strength, saddle anesthesia, urinary or bowel dysfunction, [...] record of the patient encounter. Inadvertent computerized signal tower director errors related to syntax, spelling, homophones, and/or inaudibility may be present. Scribe Statement: Scribed for and in the presence of Darrell Olsen MD by Dg Sandoval. Provider Statement: I, Darrell Olsen MD personally performed the services described in the documentation, as scribed by Dg Sandoval in my presence, and it is both accurate and complete documented in this encounter [facility] 11-04-2023 Instructions VIGNESH Hoover - 11/04/2023 10:10 AM EDT Patient was seen today by Dr. Olsen. Will follow up as needed JA documented in this encounter [facility] 10-28-2023 History and physi brigido note Note Date/Time October 28, 2023 10:24am [facility] [address] [place] [address] Physiatry (Rehab) H&P Signed Patient: Celestino Ziegler MR#: [id number] : 1970 Acct:[id number] Age/Sex: 53 / M Adm Date: 4 Loc: 5T Room: 9V3642-7 Type: ADM IN Attending Dr: Qasim Mancilla MD Copies to: MD Donna Mcmanus MD~ Date of Service: 10/28/2023 HPI History of Present Illness: Mr. Ziegler is a 53 year old male with past medical history of lumbar spinal stenosis with neurogenic claudication who presented to [facility] on [facility]21 for elective L1-L2 decompressive [...] independent. Patient hopeful to go home soon. [facility] Medical History (Updated 10/28/23 @ 12:47 [...] mcg/actuation aerosol inhaler (ProAir HFA) 2 inh [id number] PRN shortness of breath or wheezing 10/27/23 [...] 81 Mg Tablet.Dr) 81 mg PO QHS [facility] Stop: 10/29/24 08:59 Bisacodyl (Bisacodyl 10 Mg Supp.Rect) 10 mg AK DAILY PRN PRN Reason: Constipation Stop: 10/26/24 14:24 Budesonide/Formoterol Fumarate (Budesonide/Formoterol 160-4.5 Mcg 60 Puff/6 Gm Hfa.Aer.Ad) 2 puff INHALATION BID [facility] Stop: 10/26/24 20:59 Last Admin: 10/28/23 05:56 Dose: 2 puff Cyclobenzaprine HCl (Cyclobenzaprine 5 Mg Tablet) 5 mg PO TID PRN PRN Reason: back spasms Stop: 10/26/24 15:02 Dexamethasone (Dexamethasone 2 Mg Tablet) 2 mg PO Q8H [facility]; Taper Stop: 11/06/23 21:59 Last Admin: 10/28/23 06:32 Dose: 2 mg Diazepam (Diazepam 2 Mg Tablet) 2 mg PO Q6HR PRN PRN Reason: anxiety Stop: 04/24/24 15:02 Docusate Sodium (Docusate 100 Mg Capsule) 100 mg PO BID PRN PRN Reason: Constipation Stop: 10/26/24 14:24 Docusate Sodium (Docusate Enema 283 Mg/5 Ml Enema) 283 mg AK DAILY PRN PRN Reason: Constipation Stop: 10/26/24 14:24 Famotidine (Famotidine 20 Mg Tablet) 20 mg PO BID [facility] Stop: 10/26/24 20:59 Last Admin: 10/28/23 09:25 Dose: 20 mg Fluoxetine HCl (Fluoxetine 20 Mg Capsule) 40 mg PO QAM [facility] Stop: 10/27/24 08:59 Last Admin: 10/28/23 09:25 Dose: 40 mg Gabapentin (Gabapentin 800 Mg Tablet) 800 mg PO TID [facility] Stop: 10/26/24 21:59 Last Admin: 10/28/23 09:25 Dose: 800 mg Heparin Sodium (Porcine) (Heparin 5,000 Unit/Ml Vial) 5,000 unit SUBCUT Q8HR [facility] Stop: 10/28/24 21:59 Lactulose (Lactulose 20 Gm/30 Ml Udc) 30 gm PO DAILY PRN PRN Reason: Constipation Stop: 10/26/24 14:24 Liothyronine Sodium (Liothyronine 5 Mcg Tablet) 5 mcg PO DAILY [facility] Stop: 10/27/24 08:59 Last Admin: 10/28/23 09:25 Dose: 5 mcg Loratadine (Loratadine 10 Mg Tablet) 10 mg PO DAILY [facility] Stop: 10/27/24 08:59 Last Admin: 10/28/23 09:25 Dose: 10 mg Multivitamins (Multivitamin 1 Tab Tablet) 1 tab PO DAILY@1200 [facility] Stop: 10/27/24 11:59 Oxycodone HCl [...] % (Auto) 61.0 Lymph % (Auto) 28.7 Armstrong % (Auto) 9.6 Eos % (Auto) 0.4 Baso % (Auto) 0.3 Nucleat RBC Rel Count 0.1 Neut # (Auto) 4.5 Lymph # (Auto) 2.1 Armstrong # (Auto) 0.7 Eos # (Auto) 0.0 [...] 24 hour daily monitoring and intervention from Twx Operator as well as other consulting physicians including internal medicine as well as 24 hour daily pizza maker nursing - for medical safe / optimal [...] 53-year-old male with who presents to [facility] IRF due to functional decline in [...] equipment to enhance the patient's a functional cheondoism -Encourage deep breathing exercises and incentive spirometry [...] chart, including current orders, allied health and process improvement consultant notes, labs/imaging and performed butt elements of exam and I formulated the plan of care and facilitated the medical decision making. I completed a substantive portion of this encounter, the medical decision makingportion of this note in its entirety, including Allied health note review, nursing note review, process improvement consultant note review, discussion with nursing and case management, and more than 50% of my time was spent on counseling and coordination of care, time spent 75 minutes Documented By: Qasim Mancilla MD [id number] Signed By: <Electronically signed by Qasim Mancilla MD> 10/28/23 3627 [facility] Work Phone: 1(669) 909-244702-23-2024 Miscellaneous Notes* Telephone Encounter - Radha Bustillos RN - 10/08/2023 4:01 PM EST PTT of 40 called from lab. 10/22/23 LAMINECTOMY LUMBAR SINGLE LEVEL / L1-L2 documented in this encounterBrown Memorial Hospital02-23-2024 Telephone encounter Note* Telephone Encounter - Radha Bustillos RN - 10/08/2023 4:01 PM EST PTT of 40 called from lab. 10/22/23 LAMINECTOMY LUMBAR SINGLE LEVEL / L1-L2 [facility] Kuliza [id number] History and physical note* Beata Esteban APRN-INSPECTOR EXPERIMENTAL ASSEMBLY - 10/08/2023 1:15 PM EST PRE-ADMISSION TESTING HISTORY AND PHYSICAL EXAM DATE: 10/08/23 PCP: DONNA HERRERA MD CHIEF COMPLAINT: Spinal stenosis of lumbar region with neurogenic claudication HISTORY OF PRESENT ILLNESS: Celestino Ziegler, a 53 y.o. White or male, presents to [facility] for a pre-surgical H&P. The patient has been diagnosed with spinal stenosis of lumbar region with neurogenic claudication. He reports he has dealt with back pain since he was young, but it has gradually gotten worse. 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 He rates his pain [...] HISTORY: Past Medical History: Diagnosis Date Alcoholism ([facility]) Anemia Asthma Back pain Chronic pain disorder Cough Environmental allergies Hypertension history of this, not currently treated Hypothyroidism Low back pain Neck pain Spinal stenosis of lumbar region with neurogenic claudication Visual impairment lasik PAST SURGICAL HISTORY: Past Surgical History: Procedure Laterality Date ARTHROSCOPY REPAIR LESION SUPERIOR LABRUM EXTENDING FROM ANTERIOR TO POSTERIOR (SLAP) SHOULDER Left06/07/2018 Performed by Jr Christian Estrada DO at [facility] ARTHROSCOPY REPAIR ROTATOR CUFF SHOULDER Left 06/07/2018 Performed by Jr Christian Estrada DO at [facility] ARTHROSCOPY SHOULDER Left 06/07/2018 Performed by Jr Christian Estrada DO at [facility] INJECTION BLOCK SACROILIAC JOINT Bilateral 06/04/2023 Performed by Dave Garcia MD at [facility] IN[facility] BLOCK SACROILIAC JOINT Bilateral 03/19/2023 Performed by Dave Garcia MD at [facility] BLOCK SACROILIAC JOINT Bilateral 01/15/2023 Performed by Dave Garcia MD at [facility] BLOCK SACROILIAC JOINT Bilateral 09/04/2022 Performed by Dave Garcia MD at [facility] BLOCK SACROILIAC JOINT Right 05/22/2022 Performed by Dave Garcia MD at [facility] BLOCK SACROILIAC JOINT Bilateral 02/20/2022 Performed by Dave Garcia MD at [facility] BLOCK SACROILIAC JOINT Bilateral 10/20/2021 Performed by Dave Garcia MD at [facility] BLOCK SACROILIAC JOINT Bilateral 12/13/2020 Performed by Dave Garcia MD at [facility] BURSA LARGE JOINT Right hip intra-articular Right 02/21/2021 Performed by Dave Garcia MD at [facility] BURSA LARGE JOINT: right hip Right 03/27/2022 Performed by Dave Garcia MD at [facility] CAUDAL EPIDURAL WITH CATHETER, STEROID N/A 02/23/2020 Performed by Dave Garcia MD at [facility] CAUDAL EPIDURAL WITH CATHETER, STEROID N/A 01/15/2020 Performed by Dave Garcia MD at [facility] CAUDAL EPIDURAL WITH CATHETER, STEROID N/A 06/23/2019 Performed by Dave Garcia MD at [facility] CAUDAL EPIDURAL WITH CATHETER, STEROID N/A 05/05/2019 Performed by Dave Garcia MD at [facility] CAUDAL EPIDURAL WITH CATHETER, STEROID N/A 08/12/2018 Performed by Dave Garcia MD at [facility] CAUDAL EPIDURAL WITH CATHETER, STEROID 1 of 2 N/A 01/28/2018 Performed by Dave Garcia MD at [facility] CAUDAL EPIDURAL WITH CATHETER, STEROID 2 of 2 N/A 02/11/2018 Performed by Dave Garcia MD at [facility] SPINE TRANSFORAMINAL Left L 1,2 Nroot Left 01/24/2021 Performed by Dave Garcia MD at [facility] SPINE TRANSFORAMINAL: left L 1,2 nroot Left 04/17/2022 Performed by Dave Garcia MD at [facility] SPINE TRANSFORAMINAL: right L 1,2 nroot Right 04/16/2023 Performed by Dave Garcia MD at [facility] LUMBAR FUSION 2019 L2-S1 REFRACTIVE SURGERY [...] the most recent lab values available in [facility] at the time ofthe office visit and additional labs may have been drawn since that time. ASSESSMENT / DIAGNOSIS: Spinal stenosis of lumbar region with neurogenic claudication PLAN: Celestino Ziegler is scheduled for Laminectomy Lumbar Single Level / L1-L2 with Dr. Olsen on 10/22/23. DI Singletary 10/08/23 1426 [facility] Work Phone: [phone] 316-316202-23-2024 History and physical note* DI Singletary - 10/08/2023 1:15 PM EST PRE-ADMISSION TESTING HISTORY AND PHYSICAL EXAM DATE: 10/08/23 PCP: DONNA HERRERA MD CHIEF COMPLAINT: Spinal stenosis of lumbar region with neurogenic claudication HISTORY OF PRESENT ILLNESS: Celestino Ziegler, a 53 y.o. White or male, presents to [facility] for a pre-surgical H&P. The patient has been diagnosed with spinal stenosis of lumbar region with neurogenic claudication. He reports he has dealt with back pain since he was young, but it has gradually gotten worse. 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 He rates his pain [...] HISTORY: Past Medical History: Diagnosis Date Alcoholism ([facility]) Anemia Asthma Back pain Chronic pain disorder Cough Environmental allergies Hypertension history of this, not currently treated Hypothyroidism Low back pain Neck pain Spinal stenosis of lumbar region with neurogenic claudication Visual impairment lasik PAST SURGICAL HISTORY: Past Surgical History: Procedure Laterality Date ARTHROSCOPY REPAIR LESION SUPERIOR LABRUM EXTENDING FROM ANTERIOR TO POSTERIOR (SLAP) SHOULDER Left06/07/2018 Performed by Jr Christian Estrada DO at [facility] ARTHROSCOPY REPAIR ROTATOR CUFF SHOULDER Left 06/07/2018 Performed by Jr Christian Estrada DO at [facility] ARTHROSCOPY SHOULDER Left 06/07/2018 Performed by Jr Christian Estrada DO at [facility] INJECTION BLOCK SACROILIAC JOINT Bilateral 06/04/2023 Performed by Dave Garcia MD at [facility] INJECTION BLOCK SACROILIAC JOINT Bilateral 03/19/2023 Performed by Dave Garcia MD at [facility] BLOCK SACROILIAC JOINT Bilateral 01/15/2023 Performed by Dave Garcia MD at [facility] BLOCK SACROILIAC JOINT Bilateral 09/04/2022 Performed by Dave Garcia MD at [facility] INJECTION BLOCK SACROILIAC JOINT Right 05/22/2022 Performed by Dave Garcia MD at [facility] BLOCK SACROILIAC JOINT Bilateral 02/20/2022 Performed by Dave Garcia MD at [facility] BLOCK SACROILIAC JOINT Bilateral 10/20/2021 Performed by Dave Garcia MD at [facility] BLOCK SACROILIAC JOINT Bilateral 12/13/2020 Performed by Dave Garcia MD at [facility] BURSA LARGE JOINT Right hip intra-articular Right 02/21/2021 Performed by Dave Garcia MD at [facility] BURSA LARGE JOINT: right hip Right 03/27/2022 Performed by Dave Garcia MD at [facility] CAUDAL EPIDURAL WITH CATHETER, STEROID N/A 02/23/2020 Performed by Dave Garcia MD at [facility] CAUDAL EPIDURAL WITH CATHETER, STEROID N/A 01/15/2020 Performed by Dave Garcia MD at [facility] CAUDAL EPIDURAL WITH CATHETER, STEROID N/A 06/23/2019 Performed by Dave Garcia MD at [facility] CAUDAL EPIDURAL WITH CATHETER, STEROID N/A 05/05/2019 Performed by Dave Garcia MD at [facility] CAUDAL EPIDURAL WITH CATHETER, STEROID N/A 08/12/2018 Performed by Dave Garcia MD at [facility] CAUDAL EPIDURAL WITH CATHETER, STEROID 1 of 2 N/A 01/28/2018 Performed by Dave Garcia MD at [facility] INJECTION CAUDAL EPIDURAL WITH CATHETER, STEROID 2 of 2 N/A 02/11/2018 Performed by Dave Garcia MD at [facility] INJECTION SPINE TRANSFORAMINAL Left L 1,2 Nroot Left 01/24/2021 Performed by Dave Garcia MD at [facility] INJECTION SPINE TRANSFORAMINAL: left L 1,2 nroot Left 04/17/2022 Performed by Dave Garcia MD at [facility] INJECTION SPINE TRANSFORAMINAL: right L 1,2 nroot Right 04/16/2023 Performed by Dave Garcia MD at [facility] LUMBAR FUSION 2019 L2-S1 REFRACTIVE SURGERY [...] the most recent lab values available in [facility] at the time ofthe office visit and additional labs may have been drawn since that time. ASSESSMENT / DIAGNOSIS: Spinal stenosis of lumbar region with neurogenic claudication PLAN: Celestino Ziegler is scheduled for Laminectomy Lumbar Single Level / L1-L2 with Dr. Olsen on 10/22/23. DI Singletary 10/08/23 1426 documented in this encounterBrown Memorial Hospital02-23-2024 Instructions* Patient Instructions* Katina Mckeon RN - 10/08/2023 1:15 PM EST Your surgery/procedure is scheduled at [facility] on 10/22/2023 at 0730 Arrival Time 0530 [facility] Address: [address] [place] [address] Park in P1 Parking lot located on [facility]. Report to the Entrance B. Check in at the information desk the surgery. The waiting room located on the second floor. If you have any questions prior to surgery, please call Pre-Admission Clinic at [phone] between 7:30 am and 4:30 pm Wednesday through Wednesday. If you have questions the morning of surgery, please call the Pre-op Department at [phone]. Notify your SURGEON if you develop any [...] would like to schedule therapy at a [facility] facility, please call [phone] ([phone]). Do not use lotions, creams, powders, perfume, [...] RIGHTS AND RESPONSIBILITIES As a patient at [facility], you have the right to: Receive medical care and be informed of who is taking care of you Be treated with dignity and respect Have a family member/dairy supplies sales representative of choice and your physician notified of your admission Receive information and actively participate in decisions about your care and treatment Refuse care, treatment and services Decide who may provide your support and speak for you Access anabaptist and spiritual services Participate in ethical issues [...] of hospital charges and payment methods Patient/patient dairy supplies sales representative responsibilities are to: Provide information [...] surgery in clean clothes. documented in this encounterBrown Memorial Hospital02-08-2024 NoteXR CHEST 2 VWS CLINICAL INFORMATION: . Pre-op testing. TECHNIQUE/PROCEDURE: Chest radiographs, two views. COMPARISON: Prior chest radiographs, most recently 05/24/2018 FINDINGS: No tracheal deviation. Cardiac and mediastinal contours are normal. No consolidation, pneumothorax or pleural effusion. No free air. IMPRESSION: * No radiographic evidence of acute cardiopulmonary disease. Finalized by Brenden Zapien MD on 09/23/2023 4:11 [facility] 09-23-2023 NoteCLINICAL INFORMATION: . Pre-op testing. TECHNIQUE/PROCEDURE: Chest radiographs, two views. COMPARISON: Prior chest radiographs, most recently 05/24/2018 FINDINGS: No tracheal deviation. Cardiac and mediastinal contours are normal. No consolidation, pneumothorax or pleural effusion. No free air. IMPRESSION: * No radiographic evidence of acute cardiopulmonary disease. Finalized by Brenden Zapien MD on 09/23/2023 4:11 [id number] History of Present illness Narrative* Charles Tim, SENIOR 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 EXPERIMENTAL ASSEMBLY - 09/23/2023 11:50 AM EST Images from the original note were not included. [facility] [address] [place] [address], [address] [place] [address] * CHART NOTE ? 09/23/2023 Patient: Celestino Ziegler 1970 [id number] Physician: Darrell Olsen MD CHIEF COMPLAINT Low [...] to the patient's understanding. Denies loss of radiology supervisor strength, saddle anesthesia, urinary or bowel dysfunction, [...] Right achilles: 2+ Left achilles: 2+ Right radiology supervisor: 2+ Left radiology supervisor: 2+ Right Dumont: absent Left Dumont: absent [...] record of the patient encounter. Inadvertent computerized signal tower director errors related to syntax, spelling, homophones, and/or inaudibility may be present. DI Cha 09/23/23 1548 documented in this encounterBrown Memorial Hospital02-08-2024 Instructions* Patient Instructions* VIGNESH Hoover - 09/23/2023 11:50 AM EST Patient was seen by Dr. Olsen and DI Resendiz Patient was offered surgery for L1-L2 Laminectomy with Fusion. Patient will meet with Dr. Pretty Maradiaga's program scheduler, to schedule surgery. Patient was given an order for a chest x ray. JA documented in this encounterBrown Memorial Hospital02-01-2024 Miscellaneous Notes* Telephone Encounter - Kathy Ziegler CNA - 09/16/2023 2:24 PM EST Last OV: 08/19/23 Next OV: 09/23/23 With Reinard OARRS appropriate: yes Last UDS: na Pharmacy: [facility] [place] documented in this encounterBrown Memorial Hospital02-01-2024 Telephone encounter Note* Telephone Encounter - Kathy Ziegler CNA - 09/16/2023 2:24 PM EST Last OV: 08/19/23 Next OV: 09/23/23 With Reinard OARRS appropriate: yes Last UDS: na Pharmacy: [facility] [place] [facility] History of Present illness Narrative* DI Cha - 09/02/2023 10:15 AM EST Images from the original note were not included. [facility] [address] [place] [address], [place] [address] * CHART NOTE ? 09/02/2023 Patient: Celestino Ziegler 1970 [id number] Nurse Practitioner: Charles Tim CNP Physician: Darrell [...] good candidate for that. Denies loss of radiology supervisor strength, saddle anesthesia, urinary or bowel dysfunction, [...] HISTORY Past Medical History: Diagnosis Date Alcoholism ([facility]) Anxiety Back pain Chronic pain disorder Cough Depression Environmental allergies Hypertension history of this, not currently treated Low back pain Neck pain Visual impairment contacts PAST SURGICAL HISTORY Past Surgical History: Procedure Laterality Date ARTHROSCOPY REPAIR LESION SUPERIOR LABRUM EXTENDING FROM ANTERIOR TO POSTERIOR (SLAP) SHOULDER Left06/07/2018 Performed by Jr Christian Estrada DO at [facility] ARTHROSCOPY REPAIR ROTATOR CUFF SHOULDER Left 06/07/2018 Performed by Jr Christian Estrada DO at [facility] ARTHROSCOPY SHOULDER Left 06/07/2018 Performed by Jr Christian Estrada DO at [facility] INJECTION BLOCK SACROILIAC JOINT Bilateral 06/04/2023 Performed by Dave Garcia MD at [facility] IN[facility] BLOCK SACROILIAC JOINT Bilateral 03/19/2023 Performed by Dave Garcia MD at [facility] IN[facility] BLOCK SACROILIAC JOINT Bilateral 01/15/2023 Performed by Dave Garcia MD at [facility] IN[facility] BLOCK SACROILIAC JOINT Bilateral 09/04/2022 Performed by Dave Garcia MD at [facility] BLOCK SACROILIAC JOINT Right 05/22/2022 Performed by Dave Garcia MD at [facility] IN[facility] BLOCK SACROILIAC JOINT Bilateral 02/20/2022 Performed by Dave Garcia MD at [facility] IN[facility] BLOCK SACROILIAC JOINT Bilateral 10/20/2021 Performed by Dave Garcia MD at [facility] BLOCK SACROILIAC JOINT Bilateral 12/13/2020 Performed by Dave Garcia MD at [facility] INJECTION BURSA LARGE JOINT Right hip intra-articular Right 02/21/2021 Performed by Dave Garcia MD at [facility] INJECTION BURSA LARGE JOINT: right hip Right 03/27/2022 Performed by Dave Garcia MD at [facility] INJECTION CAUDAL EPIDURAL WITH CATHETER, STEROID N/A 02/23/2020 Performed by Dave Garcia MD at [facility] CAUDAL EPIDURAL WITH CATHETER, STEROID N/A 01/15/2020 Performed by Dave Garcia MD at [facility] CAUDAL EPIDURAL WITH CATHETER, STEROID N/A 06/23/2019 Performed by Dave Garcia MD at [facility] CAUDAL EPIDURAL WITH CATHETER, STEROID N/A 05/05/2019 Performed by Dave Garcia MD at [facility] CAUDAL EPIDURAL WITH CATHETER, STEROID N/A 08/12/2018 Performed by Dave Garcia MD at [facility] CAUDAL EPIDURAL WITH CATHETER, STEROID 1 of 2 N/A 01/28/2018 Performed by Dave Garcia MD at [facility] INJECTION CAUDAL EPIDURAL WITH CATHETER, STEROID 2 of 2 N/A 02/11/2018 Performed by Dave Garcia MD at [facility] INJECTION SPINE TRANSFORAMINAL Left L 1,2 Nroot Left 01/24/2021 Performed by Dave Garcia MD at [facility] INJECTION SPINE TRANSFORAMINAL: left L 1,2 nroot Left 04/17/2022 Performed by Dave Garcia MD at [facility] INJECTION SPINE TRANSFORAMINAL: right L 1,2 nroot Right 04/16/2023 Performed by Dave Garcia MD at [facility] REFRACTIVE SURGERY Bilateral FAMILY HISTORY Family [...] Right achilles 2+ Left achilles 2+ Right radiology supervisor 2+ Left radiology supervisor 2+ Right Dumont reflex absent and left [...] record of the patient encounter. Inadvertent computerized signal tower director errors related to syntax, spelling, homophones, and/or inaudibility may be present. DI Cha 09/02/23 1040 documented in this encounterOhioHealth Pickerington [facility] HospitalSmartDocs ([employer]) [id number] Instructions* Patient Instructions* VIGNESH Hoover - 09/02/2023 10:15 AM EST Patient was seen by DI Resendiz Patient was given an order for CT Lumbar without contrast. Lumbar Spine Flex/Ext x ray. Patient will follow up when CT has been scheduled. JA documented in this encounterBrown Memorial Hospital01-04-2024 History of Present illness Narrative* CHIQUITA Wong - 08/19/2023 1:00 PM EST [facility] [address] [place] [address] Patient: Celestino Ziegler Sex: male : 1970 Age: 53 y.o. PCP: DONNA HERRERA MD 08/19/2023 Celestino Ziegler is here [...] Performed by Jr Christian Estrada DO at [facility] ARTHROSCOPY REPAIR ROTATOR CUFF SHOULDER Left 06/07/2018 Performed by Jr Christian Estrada DO at [facility] ARTHROSCOPY SHOULDER Left 06/07/2018 Performed by Jr Christian Estrada DO at [facility] INJECTION BLOCK SACROILIAC JOINT Bilateral 06/04/2023 Performed by Dave Garcia MD at [facility] INJECTION BLOCK SACROILIAC JOINT Bilateral 03/19/2023 Performed by Dave Garcia MD at [facility] INJECTION BLOCK SACROILIAC JOINT Bilateral 01/15/2023 Performed by Dave Garcia MD at [facility] INJECTION BLOCK SACROILIAC JOINT Bilateral 09/04/2022 Performed by Dave Garcia MD at [facility] BLOCK SACROILIAC JOINT Right 05/22/2022 Performed by Dave Garcia MD at [facility] IN[facility] BLOCK SACROILIAC JOINT Bilateral 02/20/2022 Performed by Dave Garcia MD at [facility] BLOCK SACROILIAC JOINT Bilateral 10/20/2021 Performed by Dave Garcia MD at [facility] BLOCK SACROILIAC JOINT Bilateral 12/13/2020 Performed by Dave Garcia MD at [facility] BURSA LARGE JOINT Right hip intra-articular Right 02/21/2021 Performed by Dave Garcia MD at [facility] BURSA LARGE JOINT: right hip Right 03/27/2022 Performed by Dave Garcia MD at [facility] CAUDAL EPIDURAL WITH CATHETER, STEROID N/A 02/23/2020 Performed by Dave Garcia MD at [facility] CAUDAL EPIDURAL WITH CATHETER, STEROID N/A 01/15/2020 Performed by Dave Garcia MD at [facility] CAUDAL EPIDURAL WITH CATHETER, STEROID N/A 06/23/2019 Performed by Dave Garcia MD at [facility] CAUDAL EPIDURAL WITH CATHETER, STEROID N/A 05/05/2019 Performed by Dave Garcia MD at [facility] CAUDAL EPIDURAL WITH CATHETER, STEROID N/A 08/12/2018 Performed by Dave Garcia MD at [facility] CAUDAL EPIDURAL WITH CATHETER, STEROID 1 of 2 N/A 01/28/2018 Performed by Dave Garcia MD at [facility] CAUDAL EPIDURAL WITH CATHETER, STEROID 2 of 2 N/A 02/11/2018 Performed by Dave Garcia MD at [facility] SPINE TRANSFORAMINAL Left L 1,2 Nroot Left 01/24/2021 Performed by Dave Garcia MD at [facility] INJECTION SPINE TRANSFORAMINAL: left L 1,2 nroot Left 04/17/2022 Performed by Dave Garcia MD at [facility] INJECTION SPINE TRANSFORAMINAL: right L 1,2 nroot Right 04/16/2023 Performed by Dave Garcia MD at [facility] Bilateral No Known Allergies [...] CHIQUITA Wong 08/24/23 0902 documented in this encounterBrown Memorial Hospital10-10-2023 Evaluation note* Encounter Date Diagnosis [...] fusion of lumbar spine (ICD-10 - Z98.1) [facility] Other 01-31-2023 Evaluation note* Encounter Date Diagnosis [...] fusion of lumbar spine (ICD-10 - Z98.1) [facility] Other 12-20-2022 Evaluation note* Encounter Date Diagnosis [...] Spondylolisthesis of lumbar region (ICD-10 - M43.16) [facility] Other 12-21-2021 Evaluation note* Encounter Date Diagnosis [...] Jul, Other chronic pain (ICD-10 - G89.29) [facility] Other 10-23-2018 History general Narrative - Reported* Type Description Date Medical History chronic depression Medical History asthma Surgical History LT SHOULDER SCOPE PER DR KALPANA SUMMERS 06/07/18 Surgical History rotator cuff(L) Surgical History lasik Surgical History XL[facility] Hospitalization History See Above [facility] Other discharge summary Author Qasim Mancilla [facility] November 01, 2023 9:31am Note Date/Time October 30, 2023 10: 15am [facility] [address] [place] [address] Discharge Summary Signed Patient: Celestino Ziegler MR#: [id number] : 1970 Acct:[id number] Age/Sex: 53 / M Adm Date: 4 Loc: Room: 0B8927-[address]: Qasim Mancilla MD Copies to: [...] with chronic back pain. Patient went to [facility] October 21 for elective L1-2 compressive laminectomy and partial medial facetectomy with L1-2 fusion after failed conservative treatment. He was seen by therapy services and felt would benefit from ongoing therapy and subsequently transferred to the inpatient rehab unit here at [facility] October 27. Postoperatively the patient did [...] <Electronically signed by Qasim Mancilla MD> 11/01/23 0943 [facility] Work Phone: Evaluation + Plan note No data available for this section General Surgery [place] Evaluation noteNo assessment information available [facility] Work Phone: Evaluation note* Diagnosis Onset Date Resolution Status Asthma acute Depression with anxiety acut e Hypothyroid acute Impaired mobility and activities of daily living acute Lumbar spinal stenosis acute Post-operative pain acute S/P lumbar fusion acute [facility] Work Phone: Evaluation note* Diagnosis Lumbosacral spondylosis without myelopathy documented in [facility] Diagnosis Spinal stenosis of lumbar region with neurogenic claudication- Primary Spinal stenosis of lumbar region with neurogenic claudication- Primary Spinal stenosis of lumbar region with neurogenic claudication documented in this encounter [facility]* Diagnosis Status post lumbar laminectomy- Primary documented in this encounter [facility]* Diagnosis Status post lumbar laminectomy- Primary documented in this encounter [facility]* Diagnosis Spinal stenosis of lumbar region with neurogenic claudication- Primary documented in [facility]* Diagnosis Spinal stenosis of lumbar region with neurogenic claudication- Primary History of lumbar fusion Radiculopathy, lumbar region Thoracic or lumbosacral neuritis or radiculitis, unspecified Lumbar radiculopathy Thoracic or lumbosacral neuritis or radiculitis, unspecified documented in this encounter [facility]* Diagnosis Disorder of sacrum- Primary Disorders of sacrum Lumbosacral spondylosis without myelopathy Disorder of sacrum- Primary Disorders of sacrum Disorder of sacrum Disorders of sacrum [facility] Disorder of sacrum Disorders of sacrum documented in this encounter [facility]* Diagnosis Spinal stenosis of lumbar region with neurogenic claudication- Primary Pre-op testing Unspecified pre-operative examination Radiculopathy, lumbar region Thoracic or lumbosacral neuritis or radiculitis, unspecified Pre-op testing Unspecified pre-operative examination Spinal stenosis of lumbar region- Primary Spinal stenosis of lumbar region with neurogenic claudication documented in this encounter [facility]* Diagnosis Status post lumbar laminectomy- Primary documented in [facility]* Diagnosis Spinal stenosis of lumbar region- Primary Spinal stenosis of lumbar region with neurogenic claudication Spinal stenosis of lumbar region with neurogenic claudication documented in this encounter [facility]* Diagnosis Disorder of sacrum- Primary Disorders of sacrum Lumbosacral spondylosis without myelopathy documented in this encounter [facility]* Diagnosis Disorder of sacrum- Primary Disorders of sacrum documented in this encounter [facility]* Diagnosis Disorder of sacrum- Primary Disorders of sacrum Disorder of sacrum- Primary Disorders of sacrum Disorder of sacrum Disorders of sacrum Disorder of sacrum Disorders of sacrum documented in this encounter [facility]* Diagnosis Disorder of sacrum Disorders of sacrum Lumbosacral spondylosis without myelopathy [facility] Diagnosis Lumbosacral spondylosis without myelopathy- Primary [facility] Diagnosis Lumbosacral spondylosis without myelopathy- Primary [facility] No data available for this section General Surgery [place] InstructionsNot on filedocumented in this encounter [facility] [...] data available for this section General Surgery [place] Reason for referral (narrative)* Consultation (Routine) - Pending Review Specialty Diagnoses / Procedures Referred By Yvon dickson Referred To Contact Neurosurgery Diagnoses Spinal stenosis of lumbar region with neurogenic claudication Xu Troy PA [address] [facility], [address] [place] [address] Darrell Olsen MD [address] [place] [phone] Referral ID Status Reason Start Date Expiration Date Visits Requested Visits Authorized [id number] Pending Review Specialty Services Required 08/24/2023 08/23/2024 [facility] Purpose Family History Relationship Condition Age [...] SACROILIAC [employer]INT Xu Troy, CHIQUITA [address], [address] [place] [address] Referral ID Status Reason Start Date Expiration Date V isits Requested Visits Authorized [id number] Pending Review 01/20/2024 01/19/2025 1 1 Specialty Diagnoses / Procedures Referred By Contac t Referred To Contact Radiology Diagnoses Spinal stenosis of lumbar region with neurogenic claudication History of lumbar fusion Radiculopathy, lumbar region Lumbar radiculopathy Procedures CT lumbar spine without contrast Charles Tim APRN-INSPECTOR [employer] [address] [place] [address] Referral ID Status Reason Start Date Expiration Date V isits Requested Visits Authorized [id number] Pending Review 09/02/2023 09/01/2024 1 1 Specialty Diagnoses / Procedures Referred By Contac t Referred To Contact Diagnoses Status post lumbar laminectomy Charles Tim APRN-INSPECTOR [employer] [address] [place] [address] Referral ID Status Reason Start Date Expiration Date V isits Requested Visits Authorized [id number] Pending Review 12/02/2023 06/02/2024 12 12 Reason Evaluate and Treat P T for Back and Leg Pain Diagnosis 1 Lumbar radiculopathy (M54.16) Referral Organization [facility] urosurgery Referring Provider First Name Trino Referring Provider Last Name Helio Referring Provider Specialty Neurologica l Surgery Referred Organization [facility] Referred Address ,[place], [place],[address] Referred Provider Specialty Physical The rapist Referral [...] Date Comments pain 12/20/2023 Reason Comments Consult SUPERVISOR GLYCER[employer] lumbar Specialty Diagnoses / Procedures Referred By Contpenny t Referred To Contact Neurosurgery Diagnoses Spinal stenosis of lumbar region with neurogenic claudication Xu Troy, PA [address] [facility] [place] [id number] Darrell Olsen MD [address] [place] [phone] Referral ID Status Reason Start Date Expiration Date Visits Requested Visits Authorized [id number] Pending Review Specialty Services Required 08/24/2023 08/23/2024 [...] and content) DATE CREATED AUTHOR 09/09/2022 [facility] DATE CREATED AUTHOR AUTHOR'S ORGANIZ ATION 10/28/2023 [facility] DATE CREATED AUTHOR AUTHOR'S ORGANIZ ATION 12/04/2023 [facility] DATE CREATED AUTHOR AUTHOR'S ORGANIZ ATION 12/24/2023 [facility] DATE CREATED AUTHOR AUTHOR'S ORGANIZ ATION 02/05/2024 [facility]akes[facility] DATE CREATED AUTHOR AUTHOR'S ORGANIZ ATION 10/07/2024 [facility] Care Teams (unrecognized sec tion and [...] Kraft , CORNELL Other Provider Active Start: [facility] 2023 End: October 29, 2023 Alyce Mcintosh RN Other Provider Active Star t: October 27, 2023 End: October 29, 2023 Berkley Giron , CORNELL Other Provider Active Start : October 27, 2023 End: October 29, 2023 Jennifer Hatfeild , CORNELL Other Provider Active Start: [facility] 2023 End: October 29, 2023 Perla Bunn , CORNELL Other Provider Active Start: [facility] 2023 End: October 29, 2023 Lena Tejeda MD Other Provider Active Start: October 27, 2023 End: October 29, 2023 Virgilio Ley MD Other Provider Active Start: [facility] 2023 End: October 29, 2023 [...] Marcell Green MD Other Provider Active Start: [facility] 2023 End: October 29, 2023 Kathe Lentz APRN Other Provider Active Start: October 27, 2023 End: October 29, 2023 Mary Bowen MD Other Provider Active Start: October 27, 2023 End: October 29, 2023 Tavon Zarco MD Other Provider Active Start: [facility] 2023 End: October 29, 2023 Jorge Lopez MD Other Provider Active Start: October 27, 2023 End: October 29, 2023 Sanjana Cortes MD Other Provider Active Start: October 27, 2023 End: October 29, 2023 Michel Fuchs DO Other Provider Active Start: October 27, 2023 End: October 29, 2023 Emil Magana MD Other Provider Active Start: [facility] 2023 End: October 29, 2023 Tong Varma MD Other Provider Active Start: [facility] 2023 End: October 29, 2023 BILLY Díaz Other Provider Active St art: October 27, 2023 End: October 29, 2023 Avelina Houser APRN Other Provider Active Star t: October 27, 2023 End: October 29, 2023 Rajat Silvestre MD Other Provider Active Start: October 27, 2023 End: October 29, 2023 John Krishna MD Other Provider Active Start: [facility] 2023 End: October 29, 2023 Tod Curry MD Other Provider Active Start: [facility] 2023 End: October 29, 2023 Maximus Arce MD Other Provider Active Star t: October 27, 2023 End: October 29, 2023 Tha Otto MD Other Provider Active Start: [facility] 2023 End: October 29, 2023 Swathi Jones DO Other Provider Active Start: [facility] 2023 End: October 29, 2023 [...] Janessa Negrete MD Other Provider Active Start: [facility] 2023 End: October 29, 2023 [...] Alisa Bauer RN Other Provider Active Start: [facility] 2023 End: October 29, 2023 [...] Kraft , CORNELL Other Provider Active Start: [facility] 2023 Alyce Mcintosh , CORNELL Other Provider Active Star t: October 28, 2023 Berkley Giron RN Other Provider Active Start : October 28, 2023 Jennifer Hatfield , CORNELL Other Provider Active Start: [facility] 2023 Perla Bunn , CORNELL Other Provider Active Start: [facility] 2023 Lena Tejeda MD Other Provider Active Start: October 28, 2023 Virgilio Ley MD Other Provider Active Start: [facility] 2023 Kathy Loya APRN Other [...] Provider Active Start : October 28, 2023 aMrcell Green MD Other Provider Active Start: [facility] 2023 Kathe Lentz APRN Other Provider Active Start: October 28, 2023 Mary Bowen MD Other Provider Active Start: October 28, 2023 Tavon Zarco MD Other Provider Active Start: [facility] 2023 Jorge Lopez MD Other Provider Active Start: October 28, 2023 Sanjana Cortes MD Other Provider Active Start: October 28, 2023 Michel Fuchs DO Other Provider Active Start: October 28, 2023 Emil Magana MD Other Provider Active Start: [facility] 2023 Tong Varma MD Other Provider Active Start: [facility] 2023 Rhiannon Feldman NP-C Other Provider Active St art: October 28, 2023 Avelina Houser , [employer] Other Provider Active Star t: October 28, 2023 Rajat Silvestre MD Other Provider Active Start: October 28, 2023 John Krishna MD Other Provider Active Start: [facility] 2023 Tod Curry MD Other Provider Active Start: [facility] 2023 Maximus Arce MD Other Provider Active Star t: October 28, 2023 Tha Otto MD Other Provider Active Start: [facility] 2023 Swathi Jones , Other Provider Active Start: [facility] 2023 Ricky Guzman , DO [...] Janessa Negrete MD Other Provider Active Start: [facility] 2023 Avi Khan MD Other Provider Active S tart: October 28, 2023 Los Constantino , DO Other Provider Active Star t: October 28, 2023 Keaton Reyes , DO Other Provider Active Start: October 28, 2023 Adam Curry MD Other Provider Active Start: October 28, 2023 Alisa Bauer RN Other Provider Active Start: [facility] 2023 Team Status: Active Member Role Status Dates Donna Herrera MD Primary Care Provider Active Start: October 28, 2023 End: October 29, 2023 Qasim Mancilla MD [facility], Attending Provider, Other Provider Active Start: October 28, 2023 End: October 29, 2023 Yasmeen Quinones RN Other Provider Active Star t: October 28, 2023 End: October 29, 2023 Flores Givens RN Other Provider Active Start : October 28, 2023 End: October 29, 2023 Ariela Kraft , CORNELL Other Provider Active Start: [facility] 2023 End: October 29, 2023 Alyce Mcintosh RN Other Provider Active Star t: October 28, 2023 End: October 29, 2023 Berkley Giron RN Other Provider Active Start : October 28, 2023 End: October 29, 2023 Jennifer Hatfield RN Other Provider Active Start: [facility] 2023 End: October 29, 2023 Perla Bunn RN Other Provider Active Start: [facility] 2023 End: October 29, 2023 Lena Tejeda MD Other Provider Active Start: October 28, 2023 End: October 29, 2023 Virgilio Ley MD Other Provider Active Start: [facility] 2023 End: October 29, 2023 [...] Marcell Green MD Other Provider Active Start: [facility] 2023 End: October 29, 2023 Kathe Lentz APRN Other Provider Active Start: October 28, 2023 End: October 29, 2023 Mary Bowen MD Other Provider Active Start: October 28, 2023 End: October 29, 2023 Tavon Zarco MD Other Provider Active Start: [facility] 2023 End: October 29, 2023 Jorge Lopez MD Other Provider Active Start: October 28, 2023 End: October 29, 2023 Sanjana Cortes MD Other Provider Active Start: October 28, 2023 End: October 29, 2023 Michel Fuchs , Other Provider Active Start: October 28, 2023 End: October 29, 2023 Emil Magana MD Other Provider Active Start: [facility] 2023 End: October 29, 2023 Tong Varma MD Other Provider Active Start: [facility] 2023 End: October 29, 2023 Rhiannon Feldman NP-C Other Provider Active St art: October 28, 2023 End: October 29, 2023 Avelina Houser APRN Other Provider Active Star t: October 28, 2023 End: October 29, 2023 Rajat Silvestre MD Other Provider Active Start: October 28, 2023 End: October 29, 2023 John Krishna MD Other Provider Active Start: [facility] 2023 End: October 29, 2023 Tod Curry MD Other Provider Active Start: [facility] 2023 End: October 29, 2023 Maximus Arce MD Other Provider Active Star t: October 28, 2023 End: October 29, 2023 Tha Otto MD Other Provider Active Start: [facility] 2023 End: October 29, 2023 Swathi Jones DO Other Provider Active Start: [facility] 2023 End: October 29, 2023 [...] Janessa Negrete MD Other Provider Active Start: [facility] 2023 End: October 29, 2023 Avi Khan MD Other Provider Active S tart: October 28, 2023 End: October 29, 2023 Los Constantino , DO Other Provider Active Star t: October 28, 2023 End: October 29, 2023 Keaton Reyes , Other Provider Active Start: October 28, 2023 End: October 29, 2023 Adam Curry MD Other Provider Active Start: October 28, 2023 End: October 29, 2023 Alisa Bauer , CORNELL Other Provider Active Start: [facility] 2023 End: October 29, 2023 Team Status: Active Member Role Status Dates Donna Herrera MD Primary Care Provider Active Start: October 28, 2023 Qasim Mancilla MD [facility], Other Provider Active Start: October 28, 2023 Yasmeen Quinones RN Other Provider Active Star t: October 28, 2023 Flores Givens , CORNELL Other Provider Active Start : October 28, 2023 Ariela Kraft , CORNELL Other Provider Active Start: [facility] 2023 Alyce Mcintosh , CORNELL Other Provider Active Star t: October 28, 2023 Berkley Giron , CORNELL Other Provider Active Start : October 28, 2023 Jennifer Hatfield , CORNELL Other Provider Active Start: [facility] 2023 Perla Bunn , CORNELL Other Provider Active Start: [facility] 2023 Lena Tejeda MD Other Provider Active Start: October 28, 2023 Virgilio Ley MD Other Provider Active Start: [facility] 2023 Kathy Loya APRN Other [...] Marcell Green MD Other Provider Active Start: [facility] 2023 Kathe Lentz APRN Attending Sri rush, Other Provider Active Start: October 28, 2023 Mary Bowen MD Other Provider Active Start: October 28, 2023 Tavon Zarco MD Other Provider Active Start: [facility] 2023 Jorge Lopez MD Other Provider Active Start: October 28, 2023 Sanjana Cortes MD Other Provider Active Start: October 28, 2023 Michel Fuchs DO Other Provider Active Start: October 28, 2023 Emil Magana MD Other Provider Active Start: [facility] 2023 Tong Varma MD Other Provider Active Start: [facility] 2023 Rhiannon Feldman , SUPERVISOR [employer]-C Other Provider Active St art: October 28, 2023 Avelina Houser APRN Other Provider Active Star t: October 28, 2023 Rajat Silvestre MD Other Provider Active Start: October 28, 2023 John Krishna MD Other Provider Active Start: [facility] 2023 Tod Curry MD Other Provider Active Start: [facility] 2023 Maximus Arce MD Other Provider Active Star t: October 28, 2023 Tha Otto MD Other Provider Active Start: [facility] 2023 Swathi Jones DO Other Provider Active Start: [facility] 2023 Ricky Guzman DO Other Provider Active Start : October 28, 2023 Juan C Santiago , Other Provider Active Sta rt: October 28, 2023 Gina Franco APRN Other Provider Active Start: October 28, 2023 Vito Azar DO Other Provider Active Start: October 28, 2023 Khloe Silva MD Other Provider Active Sta rt: October 28, 2023 aSbi Ruff APRN Other Provider Active Start : October 28, 2023 Adilene Barba APRN Other Provider Active St art: October 28, 2023 Janessa Negrete MD Other Provider Active Start: [facility] 2023 Avi Khan MD Other Provider Active S tart: October 28, 2023 Los Constantino , DO Other Provider Active Star t: October 28, 2023 Keaton Reyes , DO Other Provider Active Start: October 28, 2023 Adam Curry MD Other Provider Active Start: October 28, 2023 Alisa Bauer RN Other Provider Active Start: 2023 Team Status: Inactive Member Role Status Dates Donna Herrera MD Primary Care Provider Active Start: December 22, 2023 End: December 22, 2023 Michel Robbins MD [facility] Attending Provider Active Start: December 22, 2023 End: December 22, 2023 Order Control [employer] Relationship Specialty Start Date End Date Donna Herrera MD PCP - General 05/24/18 Order Control [employer] Relationship Specialty Start Date End Date Donna Herrera MD PCP - General 05/24/18 Order Control [employer] Relationship Specialty Start Date End Date Donna Herrera MD [address] [place] [address] PCP - General 05/24/18 Order Control Clerk [employer] Relationship Specialty Start Date End Date Donna Herrera MD [address] [place] [address] PCP - General 05/24/18 Order Control Clerk [employer] Relationship Specialty Start Date End Date Donna Herrera MD [address] [place] [address] PCP - General 05/24/18 Order Control Clerk [employer] Relationship Specialty Start Date End Date Donna Herrera MD [address] [place] [address] PCP - General 05/24/18 Order Control Clerk [employer] Relationship Specialty Start Date End Date Donna Herrera MD [address] [place] [address] PCP - General 05/24/18 Order Control Clerk [employer] Relationship Specialty Start Date End Date Donna Herrera MD [address] [place] [id number] PCP - General 05/24/18 Order Control Clerk [employer] Relationship Specialty Start Date End Date Donna Herrera MD [address] [place] [id number] PCP - General 05/24/18 Order Control Clerk [employer] Relationship Specialty Start Date End Date Donna Herrera MD [address] [place], [place] [phone] PCP - General 05/24/18 Order Control Clerk [employer] Relationship Specialty Start Date End Date Donna Herrera MD [address] [place] [id number] PCP - General 05/24/18 Order Control Clerk [employer] Relationship Specialty Start Date End Date Donna Herrera MD [address] [place] [id number] PCP - General 05/24/18 Order Control Clerk [employer] Relationship Specialty Start [place] [address] [place] [id number] PCP - General 05/24/18 Order Control Clerk [employer] Relationship Specialty Start Date End Date Donna Herrera MD [address] [place] [address] PCP - General 05/24/18 Order Control Clerk [employer] Relationship Specialty Start Date End Date Donna Herrera MD [address] [place] [id number] PCP - General 05/24/18 Order Control Clerk [employer] Relationship Specialty Start Date End Date Donna Herrera MD PCP - General 05/24/18 Order Control Clerk [employer] Relationship Specialty Start Date End Date Donna Herrera MD PCP - General 05/24/18 Order Control Clerk [employer] Relationship Specialty Start Date End Date Donna Herrera MD PCP - General 05/24/18 Order Control Clerk [employer] Relationship Specialty Start Date End Date Donna Herrera MD [facility] 05/24/18 Goals (unrecognized section and content) Goals [...] THE PRIMARY CLINICAL RECORDS. [facility]. provides no warranty or guarantee of the accuracy or completeness of information in this document.
[2024-11-21 14:54] LABS: Free T3 2.15 pg/mL (2.18-3.98); Thyroid Stimulating Hormone 0.152 uIU/mL (0.358-3.740)
== END 2024-11-21 13:54 | disposition home or self-care (01) ==
LOC: LAB 13:54
PROVIDERS: PCP Family Medicine; Visit Provider Family Medicine
DX: E03.9 Hypothyroidism, unspecified (principal)
CPT/HCPCS: 36415; 84436; 84443; 84481

== ENCOUNTER 2025-05-25 12:27 | Outpatient (OUT) | payer OTHER, SELFPAY ==
--- OUTSIDE RECORDS SUMMARY | 2025-05-25 12:32 | XMS_ITS | CCD ---
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 Role Phone Trino Cadet Unavailable DR [...] Consulting Unavailable ENA, TRISTA Consulting Unavailable MD oDnna Herrera Primary Care Provider [phone] MD Trino Cadet Attending Provider DARRELL OLSEN [...] Unavailable MD Donna Herrera Primary Care Provider [phone] MD Qasim Mancilla Admit Provider Siebenaler, MD Caodaism D Attending Provider CORNELL Quinones Other Provider Unavailable CORNELL Givens Other Provider Unavailable Swapnil RN Ariela Other Provider Unavailable Arnaldo RN Alyce Other Provider Unavailable CORNELL Giron Other Provider Unavailable CORNELL Hatfield Other Provider Unavailable CORNELL Bunn Other Provider Unavailable MD Lena Tejeda Other Provider MD Virgilio Ley Other Provider Unavailable Angelicas, MANAGEMENT DEPARTMENT CHAIR Kathy M Other Provider DO Michelle Echols Other Provider [phone] MD Oswaldo Washington Other Provider DO Bhavik Hull Other Provider MD Prosper Fry Other Provider [phone] MD Evelyn Medina Other Provider [phone] MD Marcell Green Other Provider Unavailable Mary Carmen MANAGEMENT DEPARTMENT CHAIRFreida Archuleta Other Provider MD Mary Bowen Other Provider [phone] MD Tavon Zarco Other Provider MD Jorge Lopez Other Provider MD Sanjana Cortes Other Provider DO Michel Fuchs Other Provider [phone] MD Emil Magana Other Provider MD Tong Varma Other Provider BILLY Feldman Other Provider Mik, MANAGEMENT DEPARTMENT CHAIRFreida Blanchard Other Provider Unavailable MD Rajat Silvestre Other Provider MD John Krishna Other Provider MD Tod Curry Other Provider MD Maximus Arce Other Provider Unavailable MD Tha Otto Other Provider Robert, DO Swathi Other Provider DO Ricky Guzman R Other Provider [phone] DO Juan C Santiago Other Provider PIPO Franco Other Provider DO Vito Azar Other Provider MD Khloe Silva Other Provider PIPO Ruff Other Provider PIPO Barba Other Provider MD Janessa Negrete Other Provider MD Avi Khan Other Provider DO Los Constantino Other Provider [phone] DO Eric Yajered Other Provider MD Adam Curry P Other Provider CORNELL Bauer Other Provider Unavailable Donna Herrera Primary Care Physician [phone] DARRELL OLSEN Attending Unavailable HOY, DONNA M [...] Consulting Unavailable Michelle Echols Consulting Unavailable Oswaldo [place] Consulting Unavailable Bhavik Hull Consulting UnavailProsper Tejada [...] Franco Consulting Unavailable Vito Azar Consulting Unavailable DaromarCharlesaydah Santo Consulting Unavailable Sabi Ruff Consulting Unavailable Adilene [...] Unavailable Donna Herrera MD Primary Care Provider [phone] Donna Herrera MD Primary Care Provider [phone] Donna Herrera MD Primary Care Provider [phone] Donna Herrera MD Primary Care Provider [phone] Unavailable Primary Care Provider UnavailELHAM Huang Attending Unavailable XU TROY Referring Unavailable GUADALUPE MCMAHAN Attending Unavailable XU TROY Referring Unavailable ELHAM GARCIA Attending Unavailable XU TROY Referring Unavailable ELHAM GARCIA Attending Unavailable XU TROY Referring Unavailable ELHAM GARCIA Attending Unavailable XU TROY Referring Unavailable XU TROY Attending Unavailable HOY, DONNA M Referring Unavailable HOY, DONNA M Primary Care Unavailable XU TROY Attending Unavailable HOY, DONNA M Referring Unavailable HOY, DONNA M Primary Care Unavailable DAVE GARCIA Attending Unavailable DAVE GARCIA Referring Unavailable HOY, DONNA M Primary Care Unavailable DAVE GARCIA Admitting Unavailable DAVE GARCIA Attending Unavailable HOY, DONNA M Referring Unavailable [...] Admitting Unavailable DAVE GARCIA Attending Unavailable HOY, DONNA M Referring Unavailable HOY, DONNA M Primary Care Unavailable XU TROY Attending Unavailable HOY, DONNA M Referring Unavailable HOY, DONNA M Primary Care Unavailable XU TROY Attending Unavailable XU TROY Referring Unavailable HOY, DONNA M Primary Care Unavailable HOY, DONNA M Primary Care Unavailable CELESTINO ZAYAS Attending Unavailable XU TROY Attending Unavailable HOY, DONNA M Referring Unavailable HOY, DONNA M Primary Care Unavailable DAVE GARCIA Admitting Unavailable DAVE GARCIA Attending Unavailable HOY, DONNA M Referring Unavailable HOY, DONNA M Primary Care Unavailable DAVE GARCIA Attending Unavailable DAVE GARCIA Referring Unavailable HOY, DONNA M Primary Care Unavailable XU RTOY Attending Unavailable XU TROY Referring Unavailable HOY, DONNA M Primary Care Unavailable XU TROY Attending Unavailable HOY, DONNA M Referring Unavailable HOY, DONNA M Primary Care Unavailable XU TROY Attending Unavailable HOY, DONNA M Referring Unavailable HOY, DONNA M Primary Care Unavailable XU TROY Attending Unavailable XU TROY S Referring Unavailable HOY, DONNA M Primary Care Unavailable DAVE GARCIA Admitting Unavailable DAVE GARCIA Attending Unavailable HOY, DONNA M Referring Unavailable HOY, DONNA M Primary Care Unavailable DAVE GARCIA Attending Unavailable DAVE GARCIA Referring Unavailable HOY, DONNA M Primary Care Unavailable XU TROY Attending Unavailable DONNA HERRERA Referring Unavailable DONNA HERRERA Primary Care Unavailable Allergies Allergy Classification Reported Allergen(s) Allergy Type Date of Onset Reaction(s) Facility (1 source) No Known Medication Allergies; Translations: [No Known Medication Allergies] Propensity to adverse reactions (disorder) [facility] Repository Medications Current Medications Medication Drug Class(es) Dates Sig (Normalized) Sig (Original) [id number] actuat albuterol 0.09 mg/actuat metered dose inhaler (20 sources) beta2-Adrenergic Agonist Start: 10-29-2023 take 1 puff(s) by inhalation every four hours Albuterol Sulfate (Ventolin Hfa) 90 mcg/actuation Hfa Aerosol Inhaler Active 2 PUFF INHALATION Every 4 hours 6.7 30 October 29, 2023 12:00am Start: 10-27-2023 [...] 04/19/2019 Active take 2 puff(s) by mo [facility] twice daily Symbicort 160-4.5 MCG/ACT INHALE 2 [...] the morning. Active take 2 tablets by [facility] every twenty-four hours Cetirizine HCl 10 MG 2 tablets Orally On ce a day Active cyclobenzaprine hydrochloride 10 mg oral tablet (15 sources) Muscle Relaxant Start: 01-13-2025 End: 02-12-2025 take 1 tablet by mouth twice daily as needed for muscle spasms cyclobenzaprine (FLEXERIL) 10 mg tablet Indications: Acute left-sided thoracic back pain Take 1 tablet (10 mg total) by mouth 2 (two) times a day as needed for muscle spasms for up to 30 days. 10 tablet 01/13/2025 02/12/2025 Active Start: 10-27-2023 End: 10-29-2023 take 5 mg by mouth three times daily Cyclobenzaprine Discontinued 5 MG PO Three times daily October 27, 2023 12:00am October 29, 2023 9:45am Start: 10-23-2023 take 1 tablet by eleni three times daily as needed for muscle [...] sources) Nonsteroidal Anti-inflammatory Drug Start: 10-14-2023 End: 11-30-2024 take 1 tablet by mouth in the morning, then take 1 tablet by mouth at bedtime diclofenac (VOLTAREN) 75 mg EC tablet Indications: Disorder of sacrum Take 1 tablet (75 mg total) by mouth in the morning and 1 tablet (75 mg total) before bedtime. 60 tablet 5 11/30/2024 Active Start: 03-02-2023 End: 09-16-2023 take 1 [...] oral tablet (20 sources) Anti-epileptic Agent Start: 03-13-2025 End: 05-17-2025 take 1 tablet by mouth three times daily gabapentin (NEURONTIN) 800 mg tablet Indications: Lumbosacral spondylosis without myelopathy Take 1 tablet (800 mg total) by mouth 3 (three) times a day. 90 tablet 1 05/17/2025 Active Start: 01-10-2025 take 1 tablet by eleni th three times daily gabapentin (NEURONTIN) 800 mg tablet Indications: Lumbosacral spondylosis without myelopathy Take 1 tablet (800 mg total) by mouth 3 (three) times a day. 90 tablet 1 01/10/2025 Active Start: 01-10-2025 take 1 tablet by eleni th three times daily gabapentin (NEURONTIN) 800 mg tablet Indications: Lumbosacral spondylosis without myelopathy Take 1 tablet (800 mg total) by mouth 3 (three) times a day. 90 tablet 1 01/10/2025 Active Start: 11-02-2024 End: 12-28-2024 take 1 tablet by mouth three times daily gabapentin (NEURONTIN) 800 mg tablet Indications: Lumbosacral spondylosis without myelopathy Take 1 tablet (800 mg total) by mouth 3 (three) times a day. 90 tablet 1 11/02/2024 12/28/2024 Discontinued (Reorder) Start: 04-06-2024 End: 08-22-2024 take 1 tablet [...] Start Date: 10/14/23 Status: Ordered levothyroxine sodium 0.075 mg oral tablet (20 sources) l-Thyroxine take 1 tablet by mouth in the morning levothyroxine (SYNTHROID, LEVOTHROID) 75 MCG tablet Indications: hypothyroidism Take 1 tablet (75 mcg total) by mouth in the morning. Indications: a condition with low thyroid hormone levels. Active take 1 tablet by mouth in the mo rning levothyroxine (SYNTHROID, LEVOTHROID) 50 MCG tablet Indications: [...] PO Daily 30 October 29, 2023 12:00am take 1 tablet by eleni th in the morning liothyronine (CYTOMEL) 25 MCG tablet Take 1 tablet (25 mcg total) by mouth in the morning. Active loratadine 10 mg oral tablet (5 sources) Start: 10-29-2023 take 10 mg by mouth once daily Loratadine Active 10 MG PO Daily 0 October 29, 2023 12:00am methylPREDNISolone 4 mg [...] water to swallow whole; do not crush/dissolve/chew/cut/break predniSONE 20 mg oral tablet (5 sources) Start: 01-13-2025 End: 01-20-2025 take 2 tablets by mouth in the morning predniSONE (DELTASONE) 20 mg tablet Take 2 tablets (40 mg total) by mouth in the morning for 7 days. 14 tablet 01/13/2025 01/20/2025 Start: 05-31-2020 End: 10-27-2023 Prednisone Discontinued 1 [...] and joints of left foot] Episodic Other non-traumatic joint disorders (1 source) Chronic ankle pain; Translations: [Pain in left ankle and joints of left foot] 12-28-2024 Episodic Other nutritional; endocrine; and metabolic disorders [...] Residual codes; unclassified (1 source) Other specified postprocedural states; Translations: [Other specified [...] W/AND (SUSP) EXPOS COVID-19] Onset: 02-05-2022 Unclassified (2 sources) Spinal stenosis of lumbar region with neurogenic [...] Onset: 02-05-2022 Episodic Other aftercare (1 source) roasterman (current) use of aspirin; Translations: [DISPOSAL WORKER CURRENT USE OF ASPIRIN] Onset: 02-05-2022 Episodic Other aftercare (1 source) Other fpc (current) drug therapy; Translations: [OTH DISPOSAL WORKER CURRENT DRUG THERAPY] Onset: 02-05-2022 Episodic Other gastrointestinal disorders (1 source) Diarrhea, unspecified; Translations: [DIARRHEA UNSPECIFIED] Onset: 02-05-2022 Episodic Other nervous system disorders (20 sources) Postoperative pain ; Translations: [Other acute postprocedural pain] Onset: 10-25-2023 10-28-2023 Episodic Other non-traumatic joint disorders (20 sources) Hip pain; Translations: [Pain in unspecified hip] Onset: 02-20-2021 03-12-2022 Episodic Other non-traumatic joint disorders (1 source) Pain in left ankle and joints of left foot; Translations: [Pain in left ankle and joints of left foot] Onset: 12-28-2024 Episodic Residual codes; unclassified (2 sources) Chronic pain Onset: 08-03-2023 10-14-2023 Episodic Residual codes; unclassified (3 sources) History of lumbar laminectomy; Translations: [Other specified postprocedural states] 11-10-2023 Episodic Unclassified (1 source) Low back pain, unspecified M54.50 Onset: 08-05-2021 Resolved: 08-05-2021 Unclassified (1 source) CONTACT W/AND (SUSP) EXPOS COVID-19; Translations: [CONTACT W/AND (SUSP) EXPOS COVID-19] Onset: 02-03-2022 Results Test Name Value Interpretation Reference Range Facility XR SPINE CERVICAL 4 OR 5 VWS on 04-25-2025 XR SPINE CERVICAL 4 OR 5 VWS XR SPINE CERVICAL 4 OR 5 VWS XR SPINE CERVICAL 4 OR 5 VWS HISTORY: Cervical spondylosis without myelopathy COMPARISON: None. IMPRESSION: No acute vertebral body height loss. Stranding in the usual cervical lordosis. No subluxation. No prevertebral soft tissue thickening. Atlantodental interval is within normal limits. Dens is partially obscured but appropriately positioned. The lateral masses of C1 and C2. Multilevel degenerative changes of the cervical spine with disc space narrowing, anterior osteophytosis and uncovertebral spurring. Suboptimal oblique views. Multilevel neural foraminal stenosis bilaterally. Consider MRI cervical spine for further evaluation as deemed clinically appropriate. Finalized by Wolf Donis MD on 04/25/2025 1:52 PM Normal [facility] MR THORACIC SPINE WO CONTon 02-19-2025 MR THORACIC SPINE WO CONT MR THORACIC SPINE WO CONT CLINICAL INFORMATION: Disc displacement, thoracic TECHNIQUE: MR THORACIC SPINE WO CONT Multisequence multiplanar imaging of the thoracic spine was obtained utilizing a routine thoracic protocol. There is no cord signal characteristic abnormality appreciated currently. Multilevel hypertrophic degenerative changes appreciated, primarily lower thoracic. At the T11-12 level there is disc protrusion which produces mild to moderate central canal stenosis. Disc protrusion also present at T10-11 which is asymmetric to the right producing moderate right neural foraminal narrowing. Central canal mildly narrowed. At the C5-6 level there is leftward disc protrusion produces mild effacement of the anterior aspect of the central canal. No significant stenosis or compression. Posterior elements appear intact. Inversion recovery images show normal bone marrow signal. IMPRESSION: T11-12 and T12-L-1 predominant degenerative changes with rightward disc protrusion at T11-12 producing moderate right neural foraminal narrowing. Finalized by Nathen Mena MD on 02/19/2025 10:30 AM Normal [facility] CT ABDOMEN AND PELVIS WO CON Ton 01-13-2025 CT ABDOMEN AND PELVIS WO CONT CT ABDOMEN AND PELVIS WO CONT History: Left flank rib pain Procedure: Standard CT of the abdomen and pelvis without contrast was performed. Automatic exposure control was utilized for dosage reduction technique. Appropriate two-dimensional reconstructions were obtained. All CT scans at this facility use dose modulation, iterative reconstruction, and/or weight based dosing when appropriate to reduce radiation dose to as low as reasonably achievable.All CT scans at this facility use dose modulation, iterative reconstruction, and/or weight based dosing when appropriate to reduce radiation dose to as low as reasonably achievable. Findings: There is no prior examination available for comparison. CT of the abdomen and pelvis without contrast demonstrate that the lung bases are unremarkable. There is no free intraperitoneal air. The liver, gallbladder, spleen, pancreas, adrenal glands and nonobstructed right kidney are grossly unremarkable. Fluid attenuation 3.6 cm left renal lesion is probably a cyst but its evaluation is limited from streak artifact due to lumbar surgery. There is no free intraperitoneal air, free intraperitoneal fluid, bowel dilatation or obvious adenopathy. The appendix in the right lower quadrant is unremarkable. There is no obvious renal calculus or left renal obstruction. There is been extensive lumbar fusion from L2 through S1. The superior aspect of L2 and all of the L1 vertebral bodies are sclerotic. There is a few millimeters posterior displacement of L1 relative to L2 associated with severe degenerative changes of the disc. Impression: There is no definite acute abnormality to explain the patient's symptoms. Likely left renal cyst. No obvious hydronephrosis or urinary calculus. Extensive degenerative changes at L1-2 at superior margin of L2-S1 fusion Finalized by Jericho Chavez MD on 01/13/2025 7:31 PM Normal [facility] XR ANKLE LT MIN 3 VWSon 12-14 XR ANKLE LT MIN 3 VWS XR ANKLE LT MIN 3 VWS EXAM: XR ANKLE LT MIN 3 VWS CLINICAL INFORMATION: Chronic pain of left ankle. COMPARISON: None. FINDINGS: There is chronic appearing deformity involving the distal fibula. There is no convincing evidence for an acute displaced fracture or malalignment of the ankle. The ankle mortise is intact. There is a tiny plantar calcaneal enthesophyte. IMPRESSION: 1. 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 There is no convincing evidence for acute displaced fracture or malalignment of the ankle. 2. Tiny plantar calcaneal enthesophyte. Finalized by Coleman Walker MD on 12/28/2024 6:44 PM Normal [facility] XR Ankle - left 3 Viewson EXAM: XR ANKLE LT VA N 3 VWS CLINICAL INFORMATION: Chronic pain of left ankle. COMPARISON: None. FINDINGS: There is chronic appearing deformity involving the distal fibula. There is no convincing evidence for an acute displaced fracture or malalignment of the ankle. The ankle mortise is intact. There is a tiny plantar calcaneal enthesophyte. IMPRESSION: 1. 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 There is no convincing evidence for acute displaced fracture or malalignment of the ankle. 2. Tiny plantar calcaneal enthesophyte. Finalized by Coleman Walker MD on 12/28/2024 6:44 [address] [facility] Coleman Walker MD - 12/28/2024 EXAM: XR ANKLE LT MIN 3 VWS CLINICAL INFORMATION: Chronic pain of left ankle. COMPARISON: None. FINDINGS: There is chronic appearing deformity involving the distal fibula. There is no convincing evidence for an acute displaced fracture or malalignment of the ankle. The ankle mortise is intact. There is a tiny plantar calcaneal enthesophyte. IMPRESSION: 1. 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 There is no convincing evidence for acute displaced fracture or malalignment of the ankle. 2. Tiny plantar calcaneal enthesophyte. Finalized by Coleman Walker MD on 12/28/2024 6:44 PM [facility] (narrative) Basha XR Ankle - left 3 ViewsOrder ed By: Coleman Walker on 12-28-2024 [facility] Phone: Ambulatory Visit Summaryon 0 12-29-2023 Ambulatory Visit Summary JOHNSONIsaiasCELESTINO :1970 Visit Date:12/29/2023 Ambulatory Visit Instructions Your Care Team Attending Physician - Michel ROBBINS MD Primary Care Physician - Donna Herrera MD [...] choosing us for your care. Normal [facility] General Surgery Office/Clini c Noteon 12-29-2023 [...] virus vaccine, inactivated 05/19/2023 Recorded SARS-CoV-2 (COVID-19) [id number] 04/28/2022 Recorded SARS-CoV-2 (COVID-19) mRNA BNT-162b2 vax 08/04/2021 Recorded SARS-CoV-2 (COVID-19) mRNA BNT-162b2 vax 11/16/2020 Recorded SARS-CoV-2 (COVID-19) mRNA BNT-162b2 vax 10/26/2020 Recorded Normal [facility] Comment on above: Result Comment: Elec tronically Signed By: ROSENDO OROURKE, Michel Sue\Date and Time Signed: 12/29/23 16:49 EDT Reminderson 12-29-2023 Reminders - From: Terra Smith LPN To: GSN - Clinical; Sent: 12/29/2023 16:30:19 EDT Show up: 11/21/2033 07:00:00 EDT Subject: colonoscopy recall Due Date/Time: 12/21/2033 07:00:00 EDT Reminder/Recall Patient due for screening colonoscopy 12/21/2033. Normal [facility] Outside Colonoscopyon 2023 Outside Colonoscopy [id number]#[id number] F Normal [facility] Pathology Noteon 12-24-2023 Pathology Note [id number]#[id number] Normal [facility] Roque 12-22-2023 L Specimen: [id number] Received: 12/22/23 Status: SHELLEY Sousaq Num: [id number] Spec Type: Surgical Subm Dr: Michel Robbins MD FACS Tissues: A Skin-Other than Cyst, tag, debridement or plastic repair (LT EAR LESION) Procedures: HE, Gross/Micro L4 Age/ Patient Sex Location Account Attending Physician Celestino Ziegler 53/M LABELL [id number] Michel Robbins MD FACS SPEC NUM: [id number] RECD: 12/22/23 STATUS: SHELLEY CADENA NUM: [id number] LONNIE: 12/22/[address]: Michel Robbins MD FACS ENTERED: 12/22/23 [facility] DR: Aurora Simons SPEC TYPE: Surgical DEPT: [...] EGD-normal, colonoscopy-normal lesion left ear CPT Codes 46621 Specimen: [id number] Received: 12/22/23 Status: SHELLEY Chelo Num: [id number] Spec Type: Surgical Subm Dr: Michel Robbins MD FACS Tissues: A Skin-Other than Cyst, tag, debridement or plastic repair (LT EAR LESION) Procedures: Alistair WHITESIDE/Logan Nicole Patient: Celestino Ziegler [id number] (Continued) Signed (signature on file) Jameson Garcia MD 12/23/23 1400 Normal [facility] Insurance Correspondenceon 0 12-03-2023 Insurance Correspondence [id number]#[id number] Normal [facility] Consent for Procedure/Surger yon 11-17-2023 Consent for Procedure/Surgery [id number] F [facility] Facesheeton 11-17-2023 Facesheet [id number]#1.00TIFF [facility] Ambulatory Visit Summaryon 0 11-16-2023 Ambulatory Visit Summary CELESTINO ZIEGLER :1970 Visit Date:11/16/2023 Ambulatory Visit Instructions Your Care Team Attending Physician - ROSENDO OROURKE, Michel Lee Primary Care Physician - David OROURKE, Donna Referring Physician - Donna Herrera MD This [...] for choosing us for your care. Normal [facility] Alanine aminotransferase [En zymatic activity/volume] in Serum or PlasmaOrdered By: Qasim Mancilla on 10-28-2023 ALT [Catalytic activity/Vol] 7 U/L 7-52 [facility] Albumin [Mass/volume] in Ser um or Plasma by Bromocresol green (BCG) dye binding methoOrdered By: Qasim Mancilla on 10-28-2023 Albumin BCG dye [Mass/Vol] 3.9 g/dL 3.5-5.7 [facility] Alkaline phosphatase [Enzyma tic activity/volume] in Serum or PlasmaOrdered By: Qasim Mancilla on 10-28-2023 ALP [Catalytic activity/Vol] 57 U/L 34-104 [facility] Aspartate aminotransferase [ Enzymatic activity/volume] in Serum or PlasmaOrdered By: Qasim Mancilla on 10-28-2023 AST [Catalytic activity/Vol] 7 U/L 13-39 [facility] Basophils Auto (Bld) [#/Vol] Ordered By: Qasim Mancilla on 10-28-2023 Basophils (Bld) [#/Vol] 0.0 10*3/uL 0.0-0.2 [facility] Basophils/100 WBC Auto (Bld) Ordered By: Qasim Mancilla on 10-28-2023 Basophils/100 WBC (Bld) 0.3 % . [facility] Bilirubin.total [Mass/volume ] in Serum or PlasmaOrdered By: Qasim Mancilla on 10-28-2023 Bilirubin [Mass/Vol] 0.5 mg/dL 0.3-1.0 [facility] Calcium [Mass/volume] in Ser um or PlasmaOrdered By: Qasim Mancilla on 10-28-2023 Calcium [Mass/Vol] 8.8 mg/dL 8.6-10.3 [facility] Carbon dioxide, total [Moles /volume] in Serum or PlasmaOrdered By: Qasim Mancilla on 10-28-2023 CO2 [Moles/Vol] 27.8 mmol/L 21.0-31.0 [facility] Chloride [Moles/volume] in S felicita or PlasmaOrdered By: Qasim Mancilla on 10-28-2023 Chloride [Moles/Vol] 106 mmol/L 98-107 [facility] Complete Blood Count Auto Di ffon 10-28-2023 Basophils (Bld) [#/Vol] 0.0 10*3/uL Normal 0.0-0.2 [facility] Comment on above: Result Comment: PERF ORMED BY: [place] [address] PATHOLOGIST MONITORING ANALYST MARK ARIAS M.D. Performed By: #### C BC, CMP, PAB #### [facility] [address] [place] [address] [place] Basophils/100 WBC (Bld) 0.3 % Normal . [facility] Comment on above: Performed By: #### C BC, CMP, PAB #### [facility] [address] [place] [address] [place] Eosinophils (Bld) [#/Vol] 0.0 10*3/uL Normal 0.0-0.45 [facility] Comment on above: Performed By: #### C BC, CMP, PAB #### [address] Eosinophils/100 WBC (Bld) 0.4 % Normal . [facility] Comment on above: Performed By: #### C BC, CMP, PAB #### [address] Erythrocyte distribution width (RBC) [Ratio] 13.4 % Normal 12.0-14.8 [facility] Comment on above: Performed By: #### C BC, CMP, PAB #### [address] Hematocrit (Bld) [Volume fraction] 38.3 % Low 38.8-50.0 [facility] Comment on above: Performed By: #### C BC, CMP, PAB #### [address] Hemoglobin (Bld) [Mass/Vol] 12.7 g/dL Low 13.0-17.0 [facility] Comment on above: Performed By: #### C BC, CMP, PAB #### [address] Lymphocytes (Bld) [#/Vol] 2.1 10*3/uL Normal 1.00-4.8 [facility] Comment on above: Performed By: #### C BC, CMP, PAB #### [address] Lymphocytes/100 WBC (Bld) 28.7 % Normal . [facility] Comment on above: Performed By: #### C BC, CMP, PAB #### [address] MCH (RBC) [Entitic mass] 30.9 pg Normal 27.5-35.2 [facility] Comment on above: Performed By: #### C BC, CMP, PAB #### [address] MCV (RBC) [Entitic vol] 93.0 fL Normal 83.5-101 [facility] Comment on above: Performed By: #### C BC CMP, PAB #### [address] Mean Corpuscular HGB Conc 33.3 g/dL Normal 32.5-35.6 [facility] Comment on above: Performed By: #### C BC CMP, PAB #### [address] Monocytes (Bld) [#/Vol] 0.7 10*3/uL Normal 0.0-0.8 [facility] Comment on above: Performed By: #### C BC CMP, PAB #### [address] Monocytes/100 WBC (Bld) 9.6 % Normal . [facility] Comment on above: Performed By: #### C BC CMP, PAB #### [address] Neutrophils (Bld) [#/Vol] 4.5 10*3/uL Normal 1.8-7.7 [facility] Comment on above: Performed By: #### C VLADIMIR CMP, PAB #### [address] Neutrophils/100 WBC (Bld) 61.0 % Normal . [facility] Comment on above: Performed By: #### C BC CMP, PAB #### [address] NRBC% 0.1 /100{WBC} Normal 0-0.5 [facility] Comment on above: Performed By: #### C BC CMP, PAB #### [address] Platelet mean volume (Bld) [Entitic vol] 8.7 fL Normal 6.6-10.1 [facility] Comment on above: Performed By: #### C BC, CMP, PAB #### [address] Platelets (Bld) [#/Vol] 227 10*3/uL Normal 150-450 [facility] Comment on above: Performed By: #### C BC, CMP, PAB #### [address] RBC (Bld) [#/Vol] 4.12 10*6/uL Normal 3.90-5.60 [facility] Comment on above: Performed By: #### C BC, CMP, PAB #### [address] WBC (Bld) [#/Vol] 7.4 10*3/uL Normal 4.1-10.5 [facility] Comment on above: Performed By: #### C BC, CMP, PAB #### [address] Comprehensive Metabolic Pane roque 10-28-2023 Albumin [Mass/Vol] 3.9 g/dL Normal 3.5-5.7 [facility] Comment on above: Performed By: #### C BC, CMP, PAB #### [address] Albumin/Globulin [Mass ratio] 1.7 {ratio} Normal [facility] Comment on above: Performed By: #### C BC, CMP, PAB #### [address] ALP [Catalytic activity/Vol] 57 U/L Normal 34-104 [facility] Comment on above: Performed By: #### C BC, CMP, PAB #### [address] ALT [Catalytic activity/Vol] 7 U/L Normal 7-52 [facility] Comment on above: Performed By: #### C BC, CMP, PAB #### [address] Anion gap [Moles/Vol] 11.6 mmol/L Normal 6.0-15.0 [facility] Comment on above: Performed By: #### C BC, CMP, PAB #### [facility] [address] AST [Catalytic activity/Vol] 7 U/L Low 13-39 [facility] Comment on above: Performed By: #### C BC, CMP, PAB #### [facility] [address] Bilirubin [Mass/Vol] 0.5 mg/dL Normal 0.3-1.0 [facility] Comment on above: Performed By: #### C BC, CMP, PAB #### [address] Calcium [Mass/Vol] 8.8 mg/dL Normal 8.6-10.3 [facility] Comment on above: Performed By: #### C BC, CMP, PAB #### [address] Chloride [Moles/Vol] 106 mmol/L Normal 98-107 [facility] Comment on above: Performed By: #### C BC, CMP, PAB #### [place] [address] [place] CO2 [Moles/Vol] 27.8 mmol/L Normal 21.0-31.0 [facility] Comment on above: Performed By: #### C BC, CMP, PAB #### [place] [address] [place] Creatinine [Mass/Vol] 0.89 mg/dL Normal 0.70-1.30 [facility] Comment on above: Performed By: #### C BC, CMP, PAB #### [place] [address] [place] Creatinine Clr Calc Pharmacy 103.39 Normal [facility] Comment on above: Performed By: #### C BC, CMP, PAB #### [place] [address] [place] GFR/1.73 sq M.predicted MDRD (S/P/Bld) [Vol rate/Area] mL/min/{1.73_m2} Normal [facility] Comment on above: Performed By: #### C BC, CMP, PAB #### [facility] [address] Globulin (S) [Mass/Vol] 2.3 g/dL Normal [facility] Comment on above: Performed By: #### C HALINA GILBERT, PAB #### [facility] [address] Glucose [Mass/Vol] 109 mg/dL High 70-100 [facility] Comment on above: Result Comment: [facility] Glucose Reference Range is dependent on time and content of last meal. Glucose of more than 200 mg/dL in a nonstressed, ambulatory subject supports the diagnosis of Diabetes Mellitus. ADA recommended reference range Performed By: #### C HALINA GILBERT, PAB #### [address] Potassium [Moles/Vol] 4.4 mmol/L Normal 3.5-5.1 [facility] Comment on above: Performed By: #### C HALINA GILBERT, PAB #### [address] Protein [Mass/Vol] 6.2 g/dL Low 6.4-8.9 [facility] Comment on above: Performed By: #### C HALINA GILBERT, PAB #### [address] Sodium [Moles/Vol] 141 mmol/L Normal 136-145 [facility] Comment on above: Performed By: #### C HALINA GILBERT, PAB #### [address] Urea nitrogen [Mass/Vol] 26 mg/dL High 7-25 [facility] Comment on above: Performed By: #### C HALINA GILBERT, PAB #### [place] [address] [place] Creatinine [Mass/volume] in Serum or PlasmaOrdered By: Qasim Mancilla on 10-28-2023 Creatinine [Mass/Vol] 0.89 mg/dL 0.70-1.30 [facility] Eosinophils Auto (Bld) [#/Vo l]Ordered By: Qasim Mancilla on 10-28-2023 Eosinophils (Bld) [#/Vol] 0.0 10*3/uL 0.0-0.45 [facility] Eosinophils/100 WBC Auto (Bl d)Ordered By: Qasim Mancilla on 10-28-2023 Eosinophils/100 WBC (Bld) 0.4 % . [facility] Erythrocyte distribution wid th Auto (RBC) [Ratio]Ordered By: Qasim Mancilla on 10-28-2023 Erythrocyte distribution width (RBC) [Ratio] 13.4 % 12.0-14.8 [facility] Globulin Calc (S) [Mass/Vol] Ordered By: Qasim Mancilla on 10-28-2023 Globulin (S) [Mass/Vol] 2.3 g/dL [facility] Glucose [Mass/volume] in Ser um or PlasmaOrdered By: Qasim Mancilla on 10-28-2023 Glucose [Mass/Vol] 109 mg/dL 70-100 [facility] Comment on above: ADA recommended refe rence rangeRandom Glucose Reference Range is dependent on time and content of last meal. Glucose of more than 200 mg/dL in a nonstressed, ambulatory subject supports the diagnosis of Diabetes Mellitus. Hematocrit Auto (Bld) [Volum e fraction]Ordered By: Qasim Mancilla on 10-28-2023 Hematocrit (Bld) [Volume fraction] 38.3 % 38.8-50.0 [facility] Hemoglobin [Mass/volume] in BloodOrdered By: Qasim Mancilla on 10-28-2023 Hemoglobin (Bld) [Mass/Vol] 12.7 g/dL 13.0-17.0 [facility] Leukocytes [#/volume] correc deon for nucleated erythrocytes in Blood by Automated counOrdered By: Qasim Mancilla on 10-28-2023 WBC corrected for nucl RBC Auto (Bld) [#/Vol] 7.4 10*3/uL 4.1-10.5 [facility] Lymphocytes Auto (Bld) [#/Vo l]Ordered By: Qasim Mancilla on 10-28-2023 Lymphocytes (Bld) [#/Vol] 2.1 10*3/uL 1.00-4.8 [facility] Lymphocytes/100 WBC Auto (Bl d)Ordered By: Qasim Mancilla on 10-28-2023 Lymphocytes/100 WBC (Bld) 28.7 % . [facility] MCH Auto (RBC) [Entitic mass ]Ordered By: Qasim Mancilla on 10-28-2023 MCH (RBC) [Entitic mass] 30.9 pg 27.5-35.2 [facility] MCHC Auto (RBC) [Mass/Vol]Or dered By: Qasim Mancilla on 10-28-2023 MCHC (RBC) [Mass/Vol] 33.3 g/dL 32.5-35.6 [facility] MCV Auto (RBC) [Entitic vol] Ordered By: Qasim Mancilla on 10-28-2023 MCV (RBC) [Entitic vol] 93.0 fL 83.5-101 [facility] Monocytes Auto (Bld) [#/Vol] Ordered By: Qasim Mancilla on 10-28-2023 Monocytes (Bld) [#/Vol] 0.7 10*3/uL 0.0-0.8 [facility] Monocytes/100 WBC Auto (Bld) Ordered By: Qasim Mancilla on 10-28-2023 Monocytes/100 WBC (Bld) 9.6 % . [facility] Neutrophils Auto (Bld) [#/Vo l]Ordered By: Qasim Mancilla on 10-28-2023 Neutrophils (Bld) [#/Vol] 4.5 10*3/uL 1.8-7.7 [facility] Neutrophils/100 WBC Auto (Bl d)Ordered By: Qasim Mancilla on 10-28-2023 Neutrophils/100 WBC (Bld) 61.0 % . [facility] No Panel InformationOrdered By: Qasim Mancilla on 10-28-2023 Estimated GFR (CKD-EPI) > 60.0 mL/Min [facility] Creatinine Clearance (Chem 103.39 [facility] Nucleated erythrocytes [Pres ence] in Blood by Automated countOrdered By: Qasim Mancilla on 10-28-2023 Nucleated RBC Auto Ql (Bld) 0.1 /100{WBC} 0-0.5 [facility] Platelet mean volume Auto (B ld) [Entitic vol]Ordered By: Qasim Mancilla on 10-28-2023 Platelet mean volume (Bld) [Entitic vol] 8.7 fL 6.6-10.1 [facility] Platelets Auto (Bld) [#/Vol] Ordered By: Qasim Mancilla on 10-28-2023 Platelets (Bld) [#/Vol] 227 10*3/uL 150-450 [facility] Potassium [Moles/volume] in Serum or PlasmaOrdered By: Qasim Mancilla on 10-28-2023 Potassium [Moles/Vol] 4.4 mmol/L 3.5-5.1 [facility] Prealbuminon 10-28-2023 Prealbumin [Mass/Vol] 25.1 mg/dL Normal 17.0-34.0 [facility] Comment on above: Result Comment: PERF ORMED BY: [place] [address] PATHOLOGIST MONITORING ANALYST MARK ARIAS M.D. Performed By: #### C BC, CMP, PAB #### [address] Prealbumin [Mass/volume] in Serum or PlasmaOrdered By: Qasim Mancilla on 10-28-2023 Prealbumin [Mass/Vol] 25.1 mg/dL 17.0-34.0 [facility] Protein [Mass/volume] in Ser um or PlasmaOrdered By: Qasim Mancilla on 10-28-2023 Protein [Mass/Vol] 6.2 g/dL 6.4-8.9 [facility] RBC Auto (Bld) [#/Vol]Ordere d By: Qasim Mancilla on 10-28-2023 RBC (Bld) [#/Vol] 4.12 10*6/uL 3.90-5.60 [facility] Serum or plasma albumin/glob ulin mass ratioOrdered By: Qasim Mancilla on 10-28-2023 Albumin/Globulin [Mass ratio] 1.7 {ratio} [facility] Serum or plasma anion gap de terminationOrdered By: Qasim Mancilla on 10-28-2023 Anion gap [Moles/Vol] 11.6 mmol/L 6.0-15.0 [facility] Sodium [Moles/volume] in Ser um or PlasmaOrdered By: Qasim Mancilla on 10-28-2023 Sodium [Moles/Vol] 141 mmol/L 136-145 [facility] Urea nitrogen [Mass/volume] in Serum or PlasmaOrdered By: Qasim Mancilla on 10-28-2023 Urea nitrogen [Mass/Vol] 26 mg/dL 7-25 [facility] WBC Auto (Bld) [#/Vol]Ordere d By: Qasim Mancilla on 10-28-2023 WBC (Bld) [#/Vol] 7.4 10*3/uL 4.1-10.5 [facility] BASIC METABOLIC PANLon 10-24 Anion gap [Moles/Vol] 9 mmol/L Normal 5-15 [facility] Comment on above: Performed By: #### H H, BMP ####[facility] ([id number])[address] [place] [address] Calcium [Mass/Vol] 9.1 mg/dL Normal 8.5-10.5 [facility] Comment on above: Performed By: #### H H, BMP ####[facility] ([id number])[address], [place] [address] Chloride [Moles/Vol] 104 mmol/L Normal 98-109 [facility] Comment on above: Performed By: #### H H, BMP ####[facility] ([id number])[address], [place] [address] CO2 [Moles/Vol] 28 mmol/L Normal 22-32 [facility] Comment on above: Performed By: #### H H, BMP ####[facility] ([id number])[address] [address], [place] [address] Creatinine [Mass/Vol] 0.69 mg/dL Normal 0.60-1.30 [facility] Comment on above: Result Comment: METH OD TRACEABLE TO IDMS STANDARD Performed By: #### H H, BMP ####[facility] ([id number])[address] [address], [place] [address] eGFR (CKD-EPI) NON-RACE DEPENDENT >90 Normal >59 [facility] Comment on above: Result Comment: Reported eGFR is based on the CKD-EPI 2020 equation that does not use a race coefficient. Performed By: #### H H, BMP ####[facility] ([id number])[address] [address] [place] [address] Glucose [Mass/Vol] 102 mg/dL High 65-99 [facility] Comment on above: Performed By: #### H H, BMP ####[facility] ([id number])[address] [address], [place] [address] Potassium [Moles/Vol] 3.9 mmol/L Normal 3.5-5.0 [facility] Comment on above: Performed By: #### H H, BMP ####[facility] ([id number])[address] [address] [place] [address], [place] [address] Sodium [Moles/Vol] 141 mmol/L Normal 134-146 [facility] Comment on above: Performed By: #### H H, BMP ####[facility] ([id number])[address] [address] [place] [address] Urea nitrogen [Mass/Vol] 20 mg/dL Normal 5-23 [facility] Comment on above: Performed By: #### H H, BMP ####[facility] ([id number])[address] [address], [place] [address] HGB AND HCTon 10-25-2023 Hematocrit (Bld) [Volume fraction] 36.2 % Low 39-49 [facility] Comment on above: Performed By: #### H H, BMP ####[facility] ([id number])[address], [place] [address] Hemoglobin (Bld) [Mass/Vol] 12.1 g/dL Low 13.0-17.0 [facility] Comment on above: Performed By: #### H H, BMP ####[facility] ([id number])[address], [place] [address] BASIC METABOLIC PANLon 10-23 Anion gap [Moles/Vol] 10 mmol/L Normal 5-15 [facility] Comment on above: Performed By: #### H H, BMP ####[facility] ([id number])[address], [place] [address] Calcium [Mass/Vol] 8.7 mg/dL Normal 8.5-10.5 [facility] Comment on above: Performed By: #### H H, BMP ####[facility] ([id number])[address], [place] [address] Chloride [Moles/Vol] 107 mmol/L Normal 98-109 [facility] Comment on above: Performed By: #### H H, BMP ####[facility] ([id number])[address], [place] [address] CO2 [Moles/Vol] 28 mmol/L Normal 22-32 [facility] Comment on above: Performed By: #### H H, BMP ####[facility] ([id number])[address] [address] Creatinine [Mass/Vol] 0.73 mg/dL Normal 0.60-1.30 [facility] Comment on above: Result Comment: METH OD TRACEABLE TO IDMS STANDARD Performed By: #### H H, BMP ####[facility] ([id number])[address] [address] eGFR (CKD-EPI) NON-RACE DEPENDENT >90 Normal >59 [facility] Comment on above: Result Comment: Reported eGFR is based on the CKD-EPI 2020 equation that does not use a race coefficient. Performed By: #### H H, BMP ####[facility] ([id number])[address] [address] Glucose [Mass/Vol] 94 mg/dL Normal 65-99 [facility] Comment on above: Performed By: #### H H, BMP ####[facility] ([id number])[address] [address] [address] Potassium [Moles/Vol] 4.1 mmol/L Normal 3.5-5.0 [facility] Comment on above: Performed By: #### H H, BMP ####[facility] ([id number])[address] [address] Sodium [Moles/Vol] 145 mmol/L Normal 134-146 [facility] Comment on above: Performed By: #### H H, BMP ####[facility] ([id number])[address] [address] [place] [address], [place] [address] Urea nitrogen [Mass/Vol] 20 mg/dL Normal 5-23 [facility] Comment on above: Performed By: #### H H, BMP ####[facility] ([id number])[address] [address] [address] HGB AND HCTon 10-24-2023 Hematocrit (Bld) [Volume fraction] 35.0 % Low 39-49 [facility] Comment on above: Performed By: #### H H, BMP ####[facility] ([id number])[address] [address] [address] Hemoglobin (Bld) [Mass/Vol] 11.9 g/dL Low 13.0-17.0 [facility] Comment on above: Performed By: #### H H, BMP ####[facility] ([id number])[address], [place] [address] BASIC METABOLIC PANLon 10-22 Anion gap [Moles/Vol] 6 mmol/L Normal 5-15 [facility] Comment on above: Performed By: #### H H, BMP ####[facility] ([id number])[address] [address], [place] [address] Calcium [Mass/Vol] 8.4 mg/dL Low 8.5-10.5 [facility] Comment on above: Performed By: #### H H, BMP ####[facility] ([id number])[address] [address] [address] Chloride [Moles/Vol] 106 mmol/L Normal 98-109 [facility] Comment on above: Performed By: #### H H, BMP ####[facility] ([id number])[address] [address], [place] [address] CO2 [Moles/Vol] 29 mmol/L Normal 22-32 [facility] Comment on above: Performed By: #### H H, BMP ####[facility] ([id number])[address] [address] [address] Creatinine [Mass/Vol] 0.76 mg/dL Normal 0.60-1.30 [facility] Comment on above: Result Comment: METH OD TRACEABLE TO IDMS STANDARD Performed By: #### H H, BMP ####[facility] ([id number])[address] [address], [place] [address] eGFR (CKD-EPI) NON-RACE DEPENDENT >90 Normal >59 [facility] Comment on above: Result Comment: Reported eGFR is based on the CKD-EPI 2020 equation that does not use a race coefficient. Performed By: #### H H, BMP ####[facility] ([id number])[address], [place] [address] Glucose [Mass/Vol] 99 mg/dL Normal 65-99 [facility] Comment on above: Performed By: #### H H, BMP ####[facility] ([id number])[address] [address], [place] [address] Potassium [Moles/Vol] 4.1 mmol/L Normal 3.5-5.0 [facility] Comment on above: Performed By: #### H H, BMP ####[facility] ([id number])[address] [address], [place] [address] Sodium [Moles/Vol] 141 mmol/L Normal 134-146 [facility] Comment on above: Performed By: #### H H, BMP ####[facility] ([id number])[address] [address] [place] [address], [place] [address] Urea nitrogen [Mass/Vol] 15 mg/dL Normal 5-23 [facility] Comment on above: Performed By: #### H H, BMP ####[facility] ([id number])[address] [address] [place] [address], [place] [address] HGB AND HCTon 10-23-2023 Hematocrit (Bld) [Volume fraction] 36.0 % Low 39-49 [facility] Comment on above: Performed By: #### H H, BMP ####[facility] ([id number])[address] [address] [facility] [place] [address] Hemoglobin (Bld) [Mass/Vol] 12.0 g/dL Low 13.0-17.0 [facility] Comment on above: Performed By: #### H H, BMP ####[facility] ([id number])[address] [place] [address] MR LUMBAR SPINE WO CONTon MR LUMBAR [...] Avitia MD on 10/23/2023 2:26 PM Normal [facility] BASIC METABOLIC PANLon 10-21 Anion gap [Moles/Vol] 5 mmol/L Normal 5-15 [facility] Comment on above: Performed By: #### H H, BMP ####[facility] ([id number])[address] [place] [address] Calcium [Mass/Vol] 8.5 mg/dL Normal 8.5-10.5 [facility] Comment on above: Performed By: #### H H, BMP ####[facility] ([id number])[address] [place] [address] Chloride [Moles/Vol] 108 mmol/L Normal 98-109 [facility] Comment on above: Performed By: #### H H, BMP ####[facility] ([id number])[address] [address], [place] [address] CO2 [Moles/Vol] 28 mmol/L Normal 22-32 [facility] Comment on above: Performed By: #### H H, BMP ####[facility] ([id number])[address] [address], [place] [address] Creatinine [Mass/Vol] 0.77 mg/dL Normal 0.60-1.30 [facility] Comment on above: Result Comment: METH OD TRACEABLE TO IDMS STANDARD Performed By: #### H Kobe, BMP ####[facility] ([id number])[address] [address] [place] [address], [place] [address] eGFR (CKD-EPI) NON-RACE DEPENDENT >90 Normal >59 [facility] Comment on above: Result Comment: Reported eGFR is based on the CKD-EPI 2020 equation that does not use a race coefficient. Performed By: #### H H, BMP ####[facility] ([id number])[address] [address] [address] Glucose [Mass/Vol] 112 mg/dL High 65-99 [facility] Comment on above: Performed By: #### H H, BMP ####[facility] ([id number])[address] [address] [address] Potassium [Moles/Vol] 4.6 mmol/L Normal 3.5-5.0 [facility] Comment on above: Performed By: #### H H, BMP ####[facility] ([id number])[address] [address] [address] Sodium [Moles/Vol] 141 mmol/L Normal 134-146 [facility] Comment on above: Performed By: #### H H, BMP ####[facility] ([id number])[address], [address] [place] [address] Urea nitrogen [Mass/Vol] 12 mg/dL Normal 5-23 [facility] Comment on above: Performed By: #### H H, BMP ####[facility] ([id number])[address], [address] [place] [id number] [place] FLUORO GUIDANCE SPINAL PU NCTURE OPERATIVEon [...] Vitor Mirza on 10/22/2023 12:33 PM Normal [facility] HGB AND HCTon 10-22-2023 Hematocrit (Bld) [Volume fraction] 37.0 % Low 39-49 [facility] Comment on above: Performed By: #### H H, BMP #### [facility] ([id number]) [address], [address] [place] [address] Hemoglobin (Bld) [Mass/Vol] 12.6 g/dL Low 13.0-17.0 [facility] Comment on above: Performed By: #### H H, BMP #### [facility] ([id number]) [address] [address] [place] [address] Bacteria identified Cx Nom ( U)on 10-09-2023 Service comment (Unsp spec) [Interp] NO GROWTH AT <1000 CFU/mL [facility] ABO Rh Repeaton 10-08-2023 ABO O [facility] Rh Nom (Bld) Positive [facility] APTTon 10-08-2023 aPTT Coag (PPP) [Time] 40 s High [facility] BASIC METABOLIC PANLon 10-08 Anion gap [Moles/Vol] 9 mmol/L Normal 5-15 [facility] Comment on above: Performed By: #### C BCA, BMP, PINR, 08776-6 #### [facility] ([id number]) [address] [place] [address] Calcium [Mass/Vol] 9.4 mg/dL Normal 8.5-10.5 [facility] Comment on above: Performed By: #### C BCA, BMP, PINR, 46912-3 #### [facility] ([id number]) [address] [place] [address] Chloride [Moles/Vol] 104 mmol/L Normal 98-109 [facility] Comment on above: Performed By: #### C BCA, BMP, PINR, 22340-9 #### [facility] ([id number]) [address], [address] [place] [address] CO2 [Moles/Vol] 28 mmol/L Normal 22-32 [facility] Comment on above: Performed By: #### C BCA, BMP, PINR, 96329-7 #### [facility] ([id number]) [address], [address] [place] [address] Creatinine [Mass/Vol] 0.95 mg/dL Normal 0.60-1.30 [facility] Comment on above: Result Comment: METH OD TRACEABLE TO IDMS STANDARD Performed By: #### C BCA, BMP, PINR, 25475-2 #### [facility] ([id number]) [address], [address] [place] [address] eGFR (CKD-EPI) NON-RACE DEPENDENT >90 Normal >59 [facility] Comment on above: Result Comment: Reported eGFR is based on the CKD-EPI 2020 equation that does not use a race coefficient. Performed By: #### C BCA, BMP, PINR, 69597-0 #### [facility] ([id number]) [address], [address] [place] [address] Glucose [Mass/Vol] 96 mg/dL Normal 65-99 [facility] Comment on above: Performed By: #### C BCA, BMP, PINR, 58202-7 #### [facility] ([id number]) [address] [place] [address] Potassium [Moles/Vol] 4.1 mmol/L Normal 3.5-5.0 [facility] Comment on above: Performed By: #### C BCA, BMP, PINR, 84550-3 #### [facility] ([id number]) [address] [place] [address] Sodium [Moles/Vol] 141 mmol/L Normal 134-146 [facility] Comment on above: Performed By: #### C BCA, BMP, PINR, 18565-0 #### [facility] ([id number]) [address] [place] [address] Urea nitrogen [Mass/Vol] 13 mg/dL Normal 5-23 [facility] Comment on above: Performed By: #### C BCA, BMP, PINR, 61768-8 #### [facility] ([id number]) [address] [place] [address] Basic Metabolic Panelon 09-17 Anion gap [Moles/Vol] 9 mmol/L 5 - 15 mmol/L [facility] Calcium [Mass/Vol] 9.4 mg/dL 8.5 - 10. 5 mg/dL [facility] Chloride [Moles/Vol] 104 mmol/L 98 - 10 9 mmol/L [facility] CO2 [Moles/Vol] 28 mmol/L 22 - 32 mmol/L [facility] Creatinine [Mass/Vol] 0.95 mg/dL 0.60 - 1.30 mg/dL [facility] Comment on above: METHOD TRACEABLE TO IDNJ STANDARD eGFR (CKD-EPI)non-race dependent - PINF [facility] Comment on above: Reported eGFR is based on the CKD-EPI 2020 equation that does not use a race coefficient. Glucose [Mass/Vol] 96 mg/dL 65 - 99 mg/dL [facility] Potassium [Moles/Vol] 4.1 mmol/L 3.5 - 5.0 mmol/L [facility] Sodium [Moles/Vol] 141 mmol/L 134 - 146 mmol/L [facility] Urea nitrogen [Mass/Vol] 13 mg/dL 5 - 23 mg/dL [facility] CBC AND AUTO DIFFon 10-08-19 ABSOLUTE BASOPHIL 0.0 X10E9/L Normal 0.0-0.2 [facility] Comment on above: Performed By: #### C BCA, BMP, PINR, 09444-4 #### [facility] ([id number]) [address] [place] [address] ABSOLUTE NEUTROPHIL 4.2 X10E9/L Normal 1.5-6.6 [facility] Comment on above: Performed By: #### C BCA, BMP, PINR, 62979-0 #### [facility] ([id number]) [address] [place] [address] Basophils/100 WBC (Bld) 0.7 % Normal [facility] Comment on above: Performed By: #### C BCA, BMP, PINR, 96898-6 #### [facility] ([id number]) [address] [place] [address] Eosinophils (Bld) [#/Vol] 0.1 10*3/uL Normal 0.0-0.4 [facility] Comment on above: Performed By: #### C BCA, BMP, PINR, 33407-1 #### [facility] ([id number]) [address] [place] [address] Eosinophils/100 WBC (Bld) 1.1 % Normal [facility] Comment on above: Performed By: #### C BCA, BMP, PINR, 89038-3 #### [facility] ([id number]) [address] [address] [place] [address] Erythrocyte distribution width (RBC) [Ratio] 14.0 % Normal 11.5-15.0 [facility] Comment on above: Performed By: #### C BCA, BMP, PINR, 62656-0 #### [facility] ([id number]) [address] [address] [place] [address] Hematocrit (Bld) [Volume fraction] 39.4 % Normal 39-49 [facility] Comment on above: Performed By: #### C BCA, BMP, PINR, 37726-1 #### [facility] ([id number]) [address] [address] [place] [address] Hemoglobin (Bld) [Mass/Vol] 13.3 g/dL Normal 13.0-17.0 [facility] Comment on above: Performed By: #### C BCA, BMP, PINR, 04538-1 #### [facility] ([id number]) [address] [address] [place] [address] Lymphocytes (Bld) [#/Vol] 2.2 10*3/uL Normal 1.0-3.5 [facility] Comment on above: Performed By: #### C BCA, BMP, PINR, 88446-4 #### [facility] ([id number]) [address] [address] [place] [address] Lymphocytes/100 WBC (Bld) 31.4 % Normal [facility] Comment on above: Performed By: #### C BCA, BMP, PINR, 84950-1 #### [facility] ([id number]) [address], [facility] [address] [place] [address] MCH (RBC) [Entitic mass] 31.2 pg Normal 27-34 [facility] Comment on above: Performed By: #### C BCA, BMP, PINR, 61295-5 #### [facility] ([id number]) [address] [place] [address] MCHC (RBC) [Mass/Vol] 33.7 g/dL Normal 32-36 [facility] Comment on above: Performed By: #### C BCA, BMP, PINR, 47801-9 #### [facility] ([id number]) [address], [facility] [address] [place] [address] MCV (RBC) [Entitic vol] 93 fL Normal 80-100 [facility] Comment on above: Performed By: #### C BCA, BMP, PINR, 69015-0 #### [facility] ([id number]) [address], [facility] [address] [place] [address] Monocytes (Bld) [#/Vol] 0.5 10*3/uL Normal 0-0.9 [facility] Comment on above: Performed By: #### C BCA, BMP, PINR, 41378-9 #### [facility] ([id number]) [address] [place] [address] Monocytes/100 WBC (Bld) 7.2 % Normal [facility] Comment on above: Performed By: #### C BCA, BMP, PINR, 15203-7 #### [facility] ([id number]) [address] [place] [address] Neutrophils/100 WBC (Bld) 59.6 % Normal [facility] Comment on above: Performed By: #### C BCA, BMP, PINR, 51047-1 #### [facility] ([id number]) [address] [place] [address] Platelet mean volume (Bld) [Entitic vol] 9.1 fL Normal 7-12 [facility] Comment on above: Performed By: #### C BCA, BMP, PINR, 19952-0 #### [facility] ([id number]) [address], [address] [place] [address] Platelets (Bld) [#/Vol] 212 10*3/uL Normal 150-450 [facility] Comment on above: Performed By: #### C BCA, BMP, PINR, 93906-2 #### [facility] ([id number]) [address] [place] [address] RBC COUNT 4.25 X10E12/L Normal 4.10-5.70 [facility] Comment on above: Performed By: #### C BCA, BMP, PINR, 76875-7 #### [facility] ([id number]) [address] [place] [address] WBC (Bld) [#/Vol] 7.1 10*3/uL Normal 4.0-11.0 [facility] Comment on above: Performed By: #### C BCA, BMP, PINR, 27281-1 #### [facility] ([id number]) [address] [place] [address] CBC auto differentialon 09-17 Basophils (Bld) [#/Vol] 0.0 10*3/uL [facility] Basophils/100 WBC (Bld) 0.7 % [facility] Eosinophils (Bld) [#/Vol] 0.1 10*3/uL [facility] Eosinophils/100 WBC (Bld) 1.1 % [facility] Erythrocyte distribution width (RBC) [Ratio] 14.0 % 11.5 - 15.0 % [facility] Hematocrit (Bld) [Volume fraction] 39.4 % 39 - 49 % [facility] Hemoglobin (Bld) [Mass/Vol] 13.3 g/dL 13.0 - 17.0 g/dL [facility] Lymphocytes (Bld) [#/Vol] 2.2 10*3/uL [facility] Lymphocytes/100 WBC (Bld) 31.4 % [facility] MCH (RBC) [Entitic mass] 31.2 pg 27 - 34 pg [facility] MCHC (RBC) [Mass/Vol] 33.7 g/dL 32 - 3 6 g/dL [facility] MCV (RBC) [Entitic vol] 93 fL 80 - 100 fL [facility] Monocytes (Bld) [#/Vol] 0.5 10*3/uL [facility] Monocytes/100 WBC (Bld) 7.2 % [facility] Neutrophils (Bld) [#/Vol] 4.2 10*3/uL [facility] Neutrophils/100 WBC (Bld) 59.6 % [facility] Platelet mean volume (Bld) [Entitic vol] 9.1 fL 7 - 12 fL [facility] Platelets (Bld) [#/Vol] 212 10*3/uL [facility] RBC (Bld) [#/Vol] 4.25 10*6/uL [facility] WBC corrected for nucl RBC Auto (Bld) [#/Vol] 7.1 [facility] ECG 12 leadon 10-08-2023 TRACEMASTERVUE [facility] No Panel Informationon 10-08 [facility] PROTIME AND INRon 10-08-2023 INR Coag (PPP) [Relative time] 1.0 {INR} Normal 0.8-1.1 [facility] Comment on above: Performed By: #### C BCA, BMP, PINR, 43532-7 #### [facility] ([id number]) [address] [place] [address] PT Coag (PPP) [Time] 11.1 s Normal 9.8-13.2 [facility] Comment on above: Performed By: #### C BCA, BMP, PINR, 08969-9 #### [facility] ([id number]) [address] [place] [address] Protime & INRon 10-08-2023 INR Coag (PPP) [Relative time] 1.0 {INR} [facility] PT Coag (PPP) [Time] 11.1 s [facility] Type and screenon 10-08-2023 ABO O [facility] Rh Nom (Bld) Positive [facility] URINALYSISon 10-08-2023 Bilirubin Ql (U) Negative Normal NEG [facility] BLOOD/HGB Negative Normal NEG [facility] Color (U) YELLOW Normal YELLOW [facility] Glucose Ql (U) Negative Normal NEG [facility] Ketones Ql (U) Negative Normal NEG [facility] Leukocyte esterase Test strip Ql (U) Negative Normal NEG [facility] Nitrite Ql (U) Negative Normal NEG [facility] pH (U) 7.5 [pH] Normal 5.0-8.5 [facility] Protein Ql (U) Negative Normal NEG [facility] Specific gravity (U) [Rel density] 1.010 Normal 1.003-1.03 5 [facility] TURBIDITY CLEAR Normal CLEAR [facility] Urobilinogen (U) [Mass/Vol] mg/dL Normal <1.1 [facility] URINE CULTUREon 10-08-2023 Bacteria identified Cx Nom (U) CULTURE RESULTS NO GROWTH AT <1000 CFU/mL Normal [facility] Comment on above: Performed By: #### 6 30-4 #### [facility] ([id number]) [address] [place] [address] Urinalysison 10-08-2023 Bilirubin Ql (U) Negative Negative^N egative [facility] Color (U) YELLOW YELLOW^YEL LOW [facility] Glucose (U) [Mass/Vol] Negative Negative^N egative mg/dL [facility] Hemoglobin Auto test strip Ql (U) Negative Negative^N egative [facility] Ketones (U) [Mass/Vol] Negative Negative^N egative mg/dL [facility] Leukocyte esterase Auto test strip Ql (U) Negative Negative^N egative [facility] Nitrite Auto test strip Ql (U) Negative Negative^N egative [facility] pH (U) 7.5 [pH] 5.0 - 8.5 [facility] Protein (U) [Mass/Vol] Negative Negative^N egative mg/dL [facility] Specific gravity Refractometry automated (U) [Rel density] 1.010 1.003 - 1.035 [facility] Turbidity Ql (U) CLEAR CLEAR^GERONIMO R [facility] Urobilinogen Qn (U) NINF [facility] aPTT Coag (PPP) [Time]on aPTT Coag (Bld) [Time] 40 s High 26-37 [facility] Comment on above: Performed By: #### C BCA, BMP, PINR, 51878-3 #### [facility] ([id number]) [address] [place] [address] Interpretation and review of laboratory results Abnormal [facility] Physician Referralon 024 Physician Referral [phone] [id number] F Normal [facility] XR Chest PA and Lateralon Brenden Zapien [...] Brenden Zapien MD on 09/23/2023 4:11 PM [facility] Radiology Study observation (narrative) [facility] XR Chest PA and LateralOrder ed By: Brenden Zapien on 09-23-2023 [facility] Work Phone: XR SPINE LUMB BENDING [...] Rodriguez MD on 09/03/2023 5:22 AM Normal [facility] XR lumbar spine AP/LAT/FLX/E XTon 05-24-2023 XR lumbar spine AP/LAT/FLX/EXT [facility] [place] [address] [place] [address] XRay Report Signed Patient: Celestino Ziegler MR#: [id number] : 1970 Acct:[id number] Age/Sex: 52 / M ADM Date: 05/24/23 Loc: XD Room: Type: [facility] Attending Dr: Trino Cadet MD Copies [...] Mesfin Snell M.D.05/24/2023 8:03 PM Dictation Location: [place] [address] Transcribed By: HARRIETT 05/24/232002 Dictated By: Mesfin Snell II, MD 05/24/232001 Signed By: 05/24/232002 Normal [facility] INSULINon 09-04-2022 Insulin 6.5 uIU/mL Normal 2.6-24.9 [facility] Comment on above: Performed By: #### I NSULIN #### [facility] [address] [place] [address] Dr. Randall Ayoub CBC AUTO DIFFon 09-03-2022 BASO # 0.0 103/ul Normal 0.0-0.1 [facility] Comment on above: Performed By: #### C BC #### [facility] [address] [place] [address] Dr. Randall Ayoub Basophils/100 WBC (Bld) 0.6 % Normal 0.2-2.0 [facility] Comment on above: Performed By: #### C BC #### [facility] [address] [place] [address] Dr. Randall Ayoub EO # 0.2 103/ul Normal 0.0-0.7 [facility] Comment on above: Performed By: #### C BC #### [facility] [address] [place] [address] Dr. Randall Ayoub Eosinophils/100 WBC (Bld) 3.2 % Normal 0.9-7.0 [facility] Comment on above: Performed By: #### C BC #### [facility] [address] [place] [address] Dr. Randall Ayoub Erythrocyte distribution width (RBC) [Ratio] 13.8 % Normal 11.0-15.0 [facility] Comment on above: Performed By: #### C BC #### [facility] [address] [place] [address] Dr. Randall Ayoub Hematocrit (Bld) [Volume fraction] 39.5 % Critically low 42.0-54.0 [facility] Comment on above: Performed By: #### C BC #### [facility] [address] [place] [address] Dr. Randall Ayoub Hemoglobin (Bld) [Mass/Vol] 13.0 g/dL Critically low 14.0-18.0 [facility] Comment on above: Performed By: #### C BC #### [facility] [address] [place] [address] Dr. Randall Ayoub IG # 0.00 10e3/ul Normal 0.00-0.03 [facility] Comment on above: Performed By: #### C BC #### [facility] [address] [place] [address] Dr. Randall Ayoub IG % 0.0 % Normal 0.0-0.5 [facility] Comment on above: Performed By: #### C BC #### [facility] [address] [place] [address] Dr. Randall Ayoub LYMPH # 2.3 103/ul Normal 1.2-3.8 [facility] Comment on above: Performed By: #### C BC #### [facility] [address] [place] [address] Dr. Randall Ayoub Lymphocytes/100 WBC (Bld) 35.2 % Normal 20.5-60.0 [facility] Comment on above: Performed By: #### C BC #### [facility] [address] [place] [address] Dr. Randall Ayoub MANUAL DIFF REQ NO Normal [facility] Comment on above: Performed By: #### C BC #### [facility] [address] [place] [address] Dr. Randall Ayoub MCH (RBC) [Entitic mass] 30.8 pg Normal 25.9-34.0 [facility] Comment on above: Performed By: #### C BC #### [facility] [address] [place] [address] Dr. Randall Ayoub MCHC (RBC) [Mass/Vol] 32.9 g/dL Normal 29.9-35.2 [facility] Comment on above: Performed By: #### C BC #### [facility] [address] [place] [address] [address] Randall Ayoub MCV (RBC) [Entitic vol] 93.6 fL Normal 80.0-94.0 [facility] Comment on above: Performed By: #### C BC #### [facility] [address] [place] [address] [address] Randall Ayoub MONO # 0.6 103/ul Normal 0.3-0.8 [facility] Comment on above: Performed By: #### C BC #### [facility] [address] [place] [address] [address] Randall Ayoub Monocytes/100 WBC (Bld) 8.9 % Normal 1.7-12.0 [facility] Comment on above: Performed By: #### C BC #### [facility] [address] [place] [address] [address] Randall Ayoub NEUT # 3.4 103/ul Normal 1.4-6.5 [facility] Comment on above: Performed By: #### C BC #### [facility] [address] [place] [address] Dr. Randall Ayoub Neutrophils/100 WBC (Bld) 52.1 % Normal 43.0-75.0 [facility] Comment on above: Performed By: #### C BC #### [facility] [address] [place] [address] Dr. Randall Ayoub Platelet mean volume (Bld) [Entitic vol] 10.7 fL Normal 9.5-13.5 [facility] Comment on above: Performed By: #### C BC #### [facility] [address] [place] [address] Dr. Randall Ayoub PLT 186 103/ul Normal 150-450 [facility] Comment on above: Performed By: #### C BC #### [facility] [address] [place] [address] [address] Randall Ayoub RBC 4.22 106/ul Critically low 4.70-6.10 [facility] Comment on above: Performed By: #### C BC #### [facility] [address] [place] [address] [address] Randall Ayoub WBC 6.6 103/ul Normal 4.0-11.0 [facility] Comment on above: Performed By: #### C BC #### [facility] [address] [place] [address] [address] Randall Ayoub GLYCOHEMOGLOBIN A1Con 2022 ADA RECOMMENDATION SEE BELOW Normal [facility] Comment on above: Result Comment: ADA RECOMMENDED LIMIT 4.0 - 6.0 ADA THERAPEUTIC TARGET < 7.0 ACTION SUGGESTED > 7.0 Performed By: #### A 1C #### [facility] [address] [place] [address] [address] Randall Ayoub Glucose [Mass/Vol] 114 mg/dL Normal [facility] Comment on above: Performed By: #### A 1C #### [facility] [address] [place] [address] Dr. Randall Ayoub HbA1c (Bld) [Mass fraction] 5.6 % Normal 4.5-6.2 [facility] Comment on above: Performed By: #### A 1C #### [facility] [address] [place] [address] [address] Randall Ayoub LIPID PROFILEon 09-03-2022 CHOL-HDL RATIO NORM SEE BELOW Normal [facility] Comment on above: Result Comment: 3.3 - 4.4 LOW RISK 4.4 - 7.1 AVERAGE RISK 7.1 - 11.0 MODERATE RISK >11.0 HIGH RISK Performed By: #### I NSULIN #### [facility] [address] [place] [address] Dr. Randall Ayoub Cholesterol [Mass/Vol] 181 mg/dL Normal <=200 [facility] Comment on above: Performed By: #### I NSULIN #### [facility] [address] [place] [address] [address] Randall Ayoub Cholesterol in HDL [Mass/Vol] 47 mg/dL Normal 40-60 [facility] Comment on above: Performed By: #### I NSULIN #### [facility] [address] [place] [address] [address] Randall Ayoub Cholesterol in LDL [Mass/Vol] 113.4 mg/dL Normal [facility] Comment on above: Performed By: #### I NSULIN #### [facility] [address] [place] [address] [address] Randall Ayoub Cholesterol.total/Cho lesterol in HDL [Mass ratio] 3.9 {ratio} Normal [facility] Comment on above: Performed By: #### I NSULIN #### [facility] [address] [place] [address] [address] Randall Ayoub HDL NORMAL > or = 60 mg/dl - LO W CARDIOVASCULAR RISK <40 mg/dl - HIGH CARDIOVASCULAR RISK Normal [facility] Comment on above: Performed By: #### I NSULIN #### [facility] [address] [place] [address] Dr. Randall Ayoub LDL CALC NORMAL SEE BELOW Normal [facility] Comment on above: Result Comment: <100 mg/dl OPTIMAL 100 - 129 mg/dl NEAR OR ABOVE OPTIMAL 130 - 159 mg/dl BORDERLINE HIGH 160 - 189 mg/dl HIGH >190 mg/dl VERY HIGH Performed By: #### I NSULIN #### [facility] [address] [place] [address] [address] Randall Ayoub Triglyceride [Mass/Vol] 103 mg/dL Normal <=150 [facility] Comment on above: Performed By: #### I NSULIN #### [facility] [address] [place] [address] Dr. Randall Ayoub VLDL CALC 20.6 mg/dL Normal [facility] Comment on above: Performed By: #### I NSULIN #### [facility] [address] [place] [address] Dr. Randall Ayoub PROF 14(COMP METB)on 023 Albumin [Mass/Vol] 3.8 g/dL Normal 3.4-5.0 [facility] Comment on above: Performed By: #### I NSULIN #### [facility] [address] [place] [address] Dr. Randall Ayoub Albumin/Globulin [Mass ratio] 1.4 {ratio} Normal [facility] Comment on above: Performed By: #### I NSULIN #### [facility] [address] [place] [address] [address] Randall Ayoub ALP [Catalytic activity/Vol] 72 U/L Normal 46-116 [facility] Comment on above: Performed By: #### I NSULIN #### [facility] [address] [place] [address] [address] Randall Ayoub ALT [Catalytic activity/Vol] 22 U/L Normal 16-63 [facility] Comment on above: Performed By: #### I NSULIN #### [facility] [address] [place] [address] [address] Randall Ayoub Anion gap [Moles/Vol] 12.9 mmol/L Normal [facility] Comment on above: Performed By: #### I NSULIN #### [facility] [address] [place] [address] Dr. Randall Ayoub AST [Catalytic activity/Vol] 17 U/L Normal 15-37 [facility] Comment on above: Performed By: #### I NSULIN #### [facility] [address] [place] [address] Dr. Randall Ayoub Bilirubin [Mass/Vol] 0.5 mg/dL Normal 0.2-1.0 [facility] Comment on above: Performed By: #### I NSULIN #### [facility] [address] [place] [address] Dr. Randall Ayoub Calcium [Mass/Vol] 8.7 mg/dL Normal 8.5-10.1 [facility] Comment on above: Performed By: #### I NSULIN #### [facility] [address] [address] [address] Randall Ayoub Chloride [Moles/Vol] 108 mmol/L Critically high 98-107 [facility] Comment on above: Performed By: #### I NSULIN #### [facility] [address] [address] [address] Randall Ayoub CO2 [Moles/Vol] 27.5 mmol/L Normal 21.0-32.0 [facility] Comment on above: Performed By: #### I NSULIN #### [facility] [address] [address] [address] Randall Ayoub Creatinine [Mass/Vol] 0.92 mg/dL Normal 0.70-1.30 [facility] Comment on above: Performed By: #### I NSULIN #### [facility] [address] [address] [address] Randall Ayoub EGFR-AF NORWEGIAN >60 Normal >=60 [facility] Comment on above: Performed By: #### I NSULIN #### [facility] [address] [address] [address] Randall Ayoub EGFR-NON AF NORWEGIAN >60 Normal >=60 [facility] Comment on above: Performed By: #### I NSULIN #### [facility] [address] [place] [address] Dr. Randall Ayoub Globulin (S) [Mass/Vol] 2.7 g/dL Normal [facility] Comment on above: Performed By: #### I NSULIN #### [facility] [address] [place] [address] Dr. Randall Ayoub Glucose [Mass/Vol] 96 mg/dL Normal 74-106 [facility] Comment on above: Performed By: #### I NSULIN #### [facility] [address] [place] [address] Dr. Randall Ayoub Potassium [Moles/Vol] 4.4 mmol/L Normal 3.5-5.1 [facility] Comment on above: Performed By: #### I NSULIN #### [facility] [address] [place] [address] Dr. Randall Ayoub Protein [Mass/Vol] 6.5 g/dL Normal 6.4-8.2 [facility] Comment on above: Performed By: #### I NSULIN #### [facility] [address] [place] [address] Dr. Randall Ayoub Sodium [Moles/Vol] 144 mmol/L Normal 136-145 [facility] Comment on above: Performed By: #### I NSULIN #### [facility] [address] [place] [address] Dr. Randall Ayoub Urea nitrogen [Mass/Vol] 23.0 mg/dL Critically high 7.0-18.0 [facility] Comment on above: Performed By: #### I NSULIN #### [facility] [address] [place] [address] Dr. Randall Ayoub Urea nitrogen/Creatinine [Mass ratio] 25.0 mg/mg Normal [facility] Comment on above: Performed By: #### I NSULIN #### [facility] [address] [place] [address] Dr. Randall Ayoub URIC ACID SERUMon 09-03-2022 Urate [Mass/Vol] 4.2 mg/dL Normal 3.5-7.2 [facility] Comment on above: Performed By: #### I NSULIN #### [facility] [address] [place] [address] Dr. Randall Ayoub CBC AUTO DIFFon 02-03-2022 BASO # 0.0 103/ul Normal 0.0-0.1 [facility] Comment on above: Performed By: #### I NSULIN #### [facility] [address] [place] [address] Dr. Randall Ayoub Basophils/100 WBC (Bld) 0.3 % Normal 0.2-2.0 [facility] Comment on above: Performed By: #### I NSULIN #### [facility] [address] [place] [address] Dr. Randall Ayoub EO # 0.0 103/ul Normal 0.0-0.7 [facility] Comment on above: Performed By: #### I NSULIN #### [facility] [address] [place] [address] Dr. Randall Ayoub Eosinophils/100 WBC (Bld) 0.5 % Critically low 0.9-7.0 [facility] Comment on above: Performed By: #### I NSULIN #### [facility] [address] [place] [address] Dr. Randall Ayoub Erythrocyte distribution width (RBC) [Ratio] 13.4 % Normal 11.0-15.0 [facility] Comment on above: Performed By: #### I NSULIN #### [facility] [address] [place] [address] Dr. Randall Ayoub Hematocrit (Bld) [Volume fraction] 41.7 % Critically low 42.0-54.0 [facility] Comment on above: Performed By: #### I NSULIN #### [facility] [address] [place] [address] Dr. Randall Ayoub Hemoglobin (Bld) [Mass/Vol] 14.0 g/dL Normal 14.0-18.0 [facility] Comment on above: Performed By: #### I NSULIN #### [facility] [address] [place] [address] Dr. Randall Ayoub IG # 0.01 10e3/ul Normal 0.00-0.03 [facility] Comment on above: Performed By: #### I NSULIN #### [facility] [address] [place] [address] Dr. Randall Ayoub IG % 0.3 % Normal 0.0-0.5 [facility] Comment on above: Performed By: #### I NSULIN #### [facility] [address] [place] [address] Dr. Rnadall Ayoub LYMPH # 1.7 103/ul Normal 1.2-3.8 [facility] Comment on above: Performed By: #### I NSULIN #### [facility] [address] [place] [address] Dr. Randall Ayoub Lymphocytes/100 WBC (Bld) 43.7 % Normal 20.5-60.0 [facility] Comment on above: Performed By: #### I NSULIN #### [facility] [address] [place] [address] Dr. Randall Ayoub MANUAL DIFF REQ NO Normal [facility] Comment on above: Performed By: #### I NSULIN #### [facility] [address] [place] [address] Dr. Randall Ayoub MCH (RBC) [Entitic mass] 31.7 pg Normal 25.9-34.0 [facility] Comment on above: Performed By: #### I NSULIN #### [facility] [address] [address] [address] Randall Ayoub MCHC (RBC) [Mass/Vol] 33.6 g/dL Normal 29.9-35.2 [facility] Comment on above: Performed By: #### I NSULIN #### [facility] [address] [address] [address] Randall Ayoub MCV (RBC) [Entitic vol] 94.3 fL Critically high 80.0-94.0 [facility] Comment on above: Performed By: #### I NSULIN #### [facility] [address] [place] [address] Dr. Randall Ayoub MONO # 0.6 103/ul Normal 0.3-0.8 [facility] Comment on above: Performed By: #### I NSULIN #### [facility] [address] [place] [address] Dr. Randall Ayoub Monocytes/100 WBC (Bld) 14.7 % Critically high 1.7-12.0 [facility] Comment on above: Performed By: #### I NSULIN #### [facility] [address] [place] [address] Dr. Randall Ayoub NEUT # 1.6 103/ul Normal 1.4-6.5 [facility] Comment on above: Performed By: #### I NSULIN #### [facility] [address] [place] [address] Dr. Randall Ayoub Neutrophils/100 WBC (Bld) 40.5 % Critically low 43.0-75.0 [facility] Comment on above: Performed By: #### I NSULIN #### [facility] [address] [place] [address] Dr. Randall Ayoub Platelet mean volume (Bld) [Entitic vol] 10.1 fL Normal 9.5-13.5 [facility] Comment on above: Performed By: #### I NSULIN #### [facility] [address] [place] [address] Dr. Randall Ayoub PLT 171 103/ul Normal 150-450 [facility] Comment on above: Performed By: #### I NSULIN #### [facility] [address] [place] [address] Dr. Randall Ayoub RBC 4.42 106/ul Critically low 4.70-6.10 [facility] Comment on above: Performed By: #### I NSULIN #### [facility] [address] [address] [address] Randall Ayoub WBC 3.9 103/ul Critically low 4.0-11.0 [facility] Comment on above: Performed By: #### I NSULIN #### [facility] [address] [place] [address] Dr. Randall Ayoub Covid-19 PCR (CVDTBH)on 01-15 SARS-CoV-2 (COVID-19) RNA SERGIO+probe Ql (Unsp spec) Not detected Normal NOT DETECTED [facility] Comment on above: Result Comment: This test is not yet approved or cleared by the [place] FDA. When there are no FDA-approved or cleared tests available, and other criteria are met, FDA can make tests available under an emergency access mechanism called an Emergency Use Authorization (EUA). The EUA for this test is supported by the [place] of Health and Human Service's (HHS's) declaration [...] SARS-CoV-2. Performed By: #### C VDTBH #### [facility] [address] [place] [address] Dr. Randall Ayoub ER URINE PROFILEon 2 Bilirubin Ql (U) MODERATE Abnormal NEGATIVE [facility] Comment on above: Performed By: #### E RUR #### [facility] [address] [place] [address] Dr. Randall Ayoub Clarity (U) CLEAR Normal CLEAR [facility] Comment on above: Performed By: #### E RUR #### [facility] [address] [place] [address] Dr. Randall Ayoub Color (U) DK. YELLOW Normal YELLOW [facility] Comment on above: Performed By: #### E RUR #### [facility] [address] [place] [address] Dr. Randall Ayoub ERUAHD A micrscopic examina tion will be performed if indicated. Normal [facility] Comment on above: Performed By: #### E RUR #### [facility] [address] [place] [address] Dr. Randall Ayoub Glucose Ql (U) Negative Normal NEGATIVE [facility] Comment on above: Performed By: #### E RUR #### [facility] [address] [place] [address] Dr. Randall Ayoub Hemoglobin Ql (U) Negative Normal NEGATIVE [facility] Comment on above: Performed By: #### E RUR #### [facility] [address] [place] [address] Dr. Randall Ayoub Ketones Ql (U) >=80 Abnormal NEGATIVE [facility] Comment on above: Performed By: #### E RUR #### [facility] [address] [place] [address] Dr. Randall Ayoub LEUKOCYTES Negative Normal NEGATIVE [facility] Comment on above: Performed By: #### E RUR #### [facility] [address] [place] [address] Dr. Randall Ayoub Nitrite Ql (U) Negative Normal NEGATIVE [facility] Comment on above: Performed By: #### E RUR #### [facility] [address] [place] [address] Dr. Randall Ayoub pH (U) 6.5 [pH] Normal 5-9 [facility] Comment on above: Performed By: #### E RUR #### [facility] [address] [place] [address] Dr. Randall Ayoub Protein (U) [Mass/Vol] 30 mg/dL Abnormal NEGATIVE/ TRACE [facility] Comment on above: Performed By: #### E RUR #### [facility] [address] [place] [address] Dr. Randall Ayoub SPEC GRAVITY 1.025 Normal 1.005-<=1. 025 [facility] Comment on above: Performed By: #### E RUR #### [facility] [address] [place] [address] Dr. Randall Ayoub UR MICRO IND NOT INDICATED Normal [facility] Comment on above: Performed By: #### E RUR #### [facility] [address] [place] [address] Dr. Randall Ayoub Urobilinogen Qn (U) 1.0 {Kavita'U}/dL Normal 0.2 - 1. 0 [facility] Comment on above: Performed By: #### E RUR #### [facility] [address] [place] [address] Dr. Randall Ayoub IN[facility] A [facility] Normal [facility] Comment on above: Result Comment: Nega tive for Flu A protein angiten. Infection due to Flu A cannot be ruled out. Flu A angiten in the sample may be below the detection limit of the test. Performed By: #### I NSULIN #### [facility] [address] [place] [address] Dr. Randall Ayoub INFLUBNEG SEE BELOW Normal [facility] Comment on above: Result Comment: Nega tive for Flu B protein antigen. Infection due to Flu B cannot be ruled out. Flu B antigen in the sample may be below the detection limit of the test. Performed By: #### I NSULIN #### [facility] [address] [place] [address] Dr. Randall Ayoub INFLUENZA A AG Negative Normal NEGATIVE SEE COMMENT [facility] Comment on above: Performed By: #### I NSULIN #### [facility] [address] [place] [address] Dr. Randall Ayoub INFLUENZA B AG Negative Normal NEGATIVE SEE COMMENT [facility] Comment on above: Performed By: #### I NSULIN #### [facility] [address] [place] [address] Dr. Randall Ayoub INTERNAL CONTROLS Within Normal Limits Normal Wi thin Normal Limits [facility] Comment on above: Performed By: #### I NSULIN #### [facility] [address] [address] [address] Randall Ayoub LACTATE/LACTIC ACIDon 2021 Lactate [Moles/Vol] 1.2 mmol/L Normal 0.4-1.9 [facility] Comment on above: Performed By: #### L ACT #### [facility] [address] [place] [address] Dr. Randall Ayoub PROF 14(COMP METB)on 022 Albumin [Mass/Vol] 4.0 g/dL Normal 3.4-5.0 [facility] Comment on above: Performed By: #### C MP #### [facility] [address] [place] [address] Dr. Randall Ayoub Albumin/Globulin [Mass ratio] 1.3 {ratio} Normal [facility] Comment on above: Performed By: #### C MP #### [facility] [address] [place] [address] Dr. Randall Ayoub ALP [Catalytic activity/Vol] 71 U/L Normal 46-116 [facility] Comment on above: Performed By: #### C MP #### [facility] [address] [place] [address] Dr. Randall Ayoub ALT [Catalytic activity/Vol] 26 U/L Normal 16-63 [facility] Comment on above: Performed By: #### C MP #### [facility] [address] [place] [address] Dr. Randall Ayoub Anion gap [Moles/Vol] 15.4 mmol/L Normal [facility] Comment on above: Performed By: #### C MP #### [facility] [address] [place] [address] Dr. Randall Ayoub AST [Catalytic activity/Vol] 15 U/L Normal 15-37 [facility] Comment on above: Performed By: #### C MP #### [facility] [address] [address] [address] Randall Ayoub Bilirubin [Mass/Vol] 0.6 mg/dL Normal 0.2-1.0 [facility] Comment on above: Performed By: #### C MP #### [facility] [address] [address] [address] Randall Ayoub Calcium [Mass/Vol] 8.9 mg/dL Normal 8.5-10.1 [facility] Comment on above: Performed By: #### C MP #### [facility] [address] [address] [address] Randall Ayoub Chloride [Moles/Vol] 108 mmol/L Critically high 98-107 [facility] Comment on above: Performed By: #### C MP #### [facility] [address] [place] [address] Dr. Randall Ayoub CO2 [Moles/Vol] 23.1 mmol/L Normal 21.0-32.0 [facility] Comment on above: Performed By: #### C MP #### [facility] [address] [place] [address] Dr. Randall Ayoub Creatinine [Mass/Vol] 0.96 mg/dL Normal 0.70-1.30 [facility] Comment on above: Performed By: #### C MP #### [facility] [address] [place] [address] Dr. Randall Ayoub EGFR-AF [place] >60 Normal >=60 [facility] Comment on above: Performed By: #### C MP #### [facility] [address] [place] [address] Dr. Randall Ayoub EGFR-NON AF [place] >60 Normal >=60 [facility] Comment on above: Performed By: #### C MP #### [facility] [address] [place] [address] Dr. Randall Ayoub Globulin (S) [Mass/Vol] 3.0 g/dL Normal [facility] Comment on above: Performed By: #### C MP #### [facility] [address] [place] [address] Dr. Randall Ayoub Glucose [Mass/Vol] 99 mg/dL Normal 74-106 [facility] Comment on above: Performed By: #### C MP #### [facility] [address] [address] [address] Randall Ayoub Potassium [Moles/Vol] 3.5 mmol/L Normal 3.5-5.1 [facility] Comment on above: Performed By: #### C MP #### [facility] [address] [address] [address] Randall Ayoub Protein [Mass/Vol] 7.0 g/dL Normal 6.4-8.2 [facility] Comment on above: Performed By: #### C MP #### [facility] [address] [address] [address] Randall Ayoub Sodium [Moles/Vol] 143 mmol/L Normal 136-145 [facility] Comment on above: Performed By: #### C MP #### [facility] [address] [address] [address] Randall Ayoub Urea nitrogen [Mass/Vol] 24.0 mg/dL Critically high 7.0-18.0 [facility] Comment on above: Performed By: #### C MP #### [facility] [address] [place] [address] Dr. Randall Ayoub Urea nitrogen/Creatinine [Mass ratio] 25.0 mg/mg Normal [facility] Comment on above: Performed By: #### C MP #### [facility] [address] [place] [address] Dr. Randall Ayoub SYMPTOMATIC COVID-19 ANTIGEN on 02-03-2022 EUA Statement SEE BELOW Normal [facility] Comment on above: Result Comment: This [...] sooner. Performed By: #### C VDAGS #### [facility] [address] [address] [address] Ranadll Ayoub SARS-CoV-2 (COVID-19) RNA SERGIO+probe Ql (Unsp spec) Negative Normal NEGATIVE [facility] Comment on above: Performed By: #### C VDAGS #### [facility] [address] [address] [address] Randall Ayoub XR CHEST 2 Von [...] hardware partially visualized. Electronically authenticated by: TRISTA ENA Date: 2022-02-03 17:08 Normal [facility] Covid-19 PCR (CVDTB)on 12-14 SARS-CoV-2 (COVID-19) RNA SERGIO+probe Ql (Unsp spec) Not detected Normal NOT DETECTED [facility] Comment on above: Result Comment: This test is not yet approved or cleared by the [place] FDA. When there are no FDA-approved or cleared tests available, and other criteria are met, FDA can make tests available under an emergency access mechanism called an Emergency Use Authorization (EUA). The EUA for this test is supported by the [place] of Health and Human Service's (HHS's) declaration [...] consistent with SARS-CoV-2. Performed By: #### C [facility] #### [facility] [address] [place] [address] Dr. Randall Ayoub Vital Signs Date Time Vital Sign Value Performing Clinician Facility 05-17-2025 12:25-0400 Body height 172.7 cm Xu PORRAS Work Phone: [facility] 05-17-2025 12:25-0400 Body mass index (BMI) [Ratio] 30.56 kg/m2 Xu Troy [facility] 05-17-2025 12:25-0400 Body weight 91.17 kg Xu Troy PA Work Phone: [facility] 05-17-2025 12:25-0400 Diastolic blood pressure 77 mm[Hg] Xu Troy PA Work Phone: [facility] 05-17-2025 12:25-0400 Heart rate 100 /min Xu Troy PA Work Phone: [facility] 05-17-2025 12:25-0400 Respiratory rate 18 /min Xu Troy PA Work Phone: [facility] 05-17-2025 12:25-0400 SaO2% (BldA) [Mass fraction] 98 % Xu Troy PA Work Phone: [facility] 05-17-2025 12:25-0400 Systolic blood pressure 127 mm[Hg] Xu Troy PA Work Phone: [facility] 04-24-2025 09:48-0400 Diastolic blood pressure 80 mm[Hg] Xu Troy PA Work Phone: [facility] [employer] [facility] 04-24-2025 09:48-0400 Heart rate 94 /min Xu Nienberg PA Work Phone: [facility] [employer] [facility] 04-24-2025 09:48-0400 Respiratory rate 18 /min Xu Nienberg PA Work Phone: [facility] [employer] [facility] 04-24-2025 09:48-0400 SaO2% (BldA) [Mass fraction] 96 % Xu Nienberg PA Work Phone: [facility] [employer] [facility] 04-24-2025 09:48-0400 Systolic blood pressure 118 mm[Hg] Xu Nienberg PA Work Phone: [facility] [employer] [facility] 02-20-2025 09:51-0400 Body height 172.7 cm Xu Nienberg PA Work Phone: [facility] [employer] [facility] 02-20-2025 09:51-0400 Body mass index (BMI) [Ratio] 30.26 kg/m2 Xu Nienberg PA Work Phone: [facility] [employer] [facility] 02-20-2025 09:51-0400 Body weight 90.27 kg Xu Nienberg PA Work Phone: [facility] [employer] [facility] 02-20-2025 09:51-0400 Diastolic blood pressure 85 mm[Hg] Xu Nienberg PA Work Phone: [facility] [employer] [facility] 02-20-2025 09:51-0400 Heart rate 93 /min Xu Nienberg PA Work Phone: [facility] [employer] [facility] 02-20-2025 09:51-0400 Respiratory rate 18 /min Xu Nienberg PA Work Phone: [facility] [employer] [facility] 02-20-2025 09:51-0400 SaO2% (BldA) [Mass fraction] 96 % Xu Nienberg PA Work Phone: [facility] [employer] [facility] 02-20-2025 09:51-0400 Systolic blood pressure 120 mm[Hg] Xu Nienberg PA Work Phone: [facility] 01-18-2025 14:33-0400 Diastolic blood pressure 62 mm[Hg] Xu Nienberg PA Work Phone: [facility] 01-18-2025 14:33-0400 Heart rate 116 /min Xu Nienberg PA Work Phone: [facility] 01-18-2025 14:33-0400 Respiratory rate 16 /min Xu Nienberg PA Work Phone: [facility] 01-18-2025 14:33-0400 SaO2% (BldA) [Mass fraction] 96 % Xu Nienberg PA Work Phone: [facility] 01-18-2025 14:33-0400 Systolic blood pressure 130 mm[Hg] Xu Nienberg PA Work Phone: [facility] 12-28-2024 13:36-0400 Diastolic blood pressure 84 mm[Hg] Xu Nienberg PA Work Phone: [facility] 12-28-2024 13:36-0400 Heart rate 93 /min Xu Nienberg PA Work Phone: [facility] 12-28-2024 13:36-0400 Respiratory rate 18 /min Xu Nienberg PA Work Phone: [facility] 12-28-2024 13:36-0400 SaO2% (BldA) [Mass fraction] 95 % Xu Nienberg PA Work Phone: [facility] 12-28-2024 13:36-0400 Systolic blood pressure 124 mm[Hg] Xu Nienberg PA Work Phone: [facility] 12-05-2024 11:14-0400 Body mass index (BMI) [Ratio] 29.5 kg/m2 Xu Nienberg PA Work Phone: [facility] 12-05-2024 11:14-0400 Body weight 88 kg Xu Nienberg PA Work Phone: [facility] 12-05-2024 11:14-0400 Diastolic blood pressure 91 mm[Hg] Xu Nienberg PA Work Phone: [facility] [employer] [facility] 12-05-2024 11:14-0400 Heart rate 91 /min Xu Nienberg PA Work Phone: [facility] [employer] [facility] 12-05-2024 11:14-0400 Respiratory rate 18 /min Xu Nienberg PA Work Phone: [facility] 12-05-2024 11:14-0400 SaO2% (BldA) [Mass fraction] 98 % Xu Nienberg PA Work Phone: [facility] [employer] [facility] 12-05-2024 11:14-0400 Systolic blood pressure 134 mm[Hg] Xu Nienberg PA Work Phone: [facility] 10-05-2024 13:54-0500 Diastolic blood pressure 75 mm[Hg] Xu Nienberg PA Work Phone: [facility] 10-05-2024 13:54-0500 Heart rate 90 /min Xu Nienberg PA Work Phone: [facility] [employer] [facility] 10-05-2024 13:54-0500 Respiratory rate 16 /min Xu Nienberg PA Work Phone: [facility] [employer] [facility] 10-05-2024 13:54-0500 SaO2% (BldA) [Mass fraction] 100 % Xu Nienberg PA Work Phone: [facility] [employer] [facility] 10-05-2024 13:54-0500 Systolic blood pressure 121 mm[Hg] Xu Nienberg PA Work Phone: [facility] [employer] [facility] 08-29-2024 13:17-0500 Body height 172.7 cm Xu Nienberg PA Work Phone: [facility] [employer] [facility] 08-29-2024 13:17-0500 Body mass index (BMI) [Ratio] 30.26 kg/m2 Xu Nienberg PA Work Phone: [facility] [employer] [facility] 08-29-2024 13:17-0500 Body weight 90.27 kg [facility] 08-29-2024 13:17-0500 Diastolic blood pressure 88 mm[Hg] Xu Nienberg PA Work Phone: [facility] [employer] [facility] 08-29-2024 13:17-0500 Heart rate 78 /min Xu Nienberg PA Work Phone: [facility] [employer] [facility] 08-29-2024 13:17-0500 SaO2% (BldA) [Mass fraction] 99 % Xu [facility]ienberg [facility] 08-29-2024 13:17-0500 Systolic blood pressure 134 mm[Hg] Xu Nienberg PA Work Phone: [facility] [employer] [facility] 06-27-2024 12:56-0500 Body height 172.7 cm Xu Nienberg PA Work Phone: [facility] [employer] [facility] 06-27-2024 12:56-0500 Body mass index (BMI) [Ratio] 29.77 kg/m2 Xu Nienberg PA Work Phone: [facility] [employer] 06-27-2024 12:56-0500 Body weight 88.81 kg Xu Nienberg PA Work Phone: [facility] [employer] [facility] 06-27-2024 12:56-0500 Diastolic blood pressure 89 mm[Hg] Xu Nienberg PA Work Phone: [facility] [employer] [facility] 06-27-2024 12:56-0500 Heart rate 85 /min Xu [facility]ienberg [facility] 06-27-2024 12:56-0500 Respiratory rate 18 /min Xu Nienberg PA Work Phone: [facility] [employer] [facility] 06-27-2024 12:56-0500 SaO2% (BldA) [Mass fraction] 98 % Xu Nienberg PA Work Phone: [facility] [employer] [facility] 06-27-2024 12:56-0500 Systolic blood pressure 123 mm[Hg] Xu Nienberg PA Work Phone: [facility] [employer] [facility] 04-13-2024 14:22-0400 Body mass index (BMI) [Ratio] 29.35 kg/m2 Xu Nienberg PA Work Phone: [facility] [employer] [facility] 04-13-2024 14:22-0400 Body weight 87.54 kg Xu Nienberg PA Work Phone: [facility] [employer] [facility] 04-13-2024 14:22-0400 Diastolic blood pressure 69 mm[Hg] Xu Nienberg PA Work Phone: [facility] [employer] [facility] 04-13-2024 14:22-0400 Heart rate 91 /min Xu Nienberg PA Work Phone: [facility] [employer] [facility] 04-13-2024 14:22-0400 Respiratory rate 14 /min Xu Nienberg PA Work Phone: [facility] [employer] [facility] 04-13-2024 14:22-0400 SaO2% (BldA) [Mass fraction] 100 % Xu Nienberg PA Work Phone: [facility] [employer] [facility] 04-13-2024 14:22-0400 Systolic blood pressure 109 mm[Hg] Xu Nienberg PA Work Phone: [facility] [employer] [facility] 02-22-2024 14:58-0400 Body mass index (BMI) [Ratio] 28.74 kg/m2 Xu Nienberg PA Work Phone: [facility] [employer] [facility] 02-22-2024 14:58-0400 Body weight 85.73 kg Xu Nienberg PA Work Phone: [facility] [employer] [facility] 02-22-2024 14:58-0400 Diastolic blood pressure 83 mm[Hg] Xu Nienberg PA Work Phone: [facility] [employer] [facility] 02-22-2024 14:58-0400 Heart rate 109 /min Xu Nienberg PA Work Phone: [facility] [employer] [facility] 02-22-2024 14:58-0400 Respiratory rate 16 /min Xu Nienberg PA Work Phone: [facility] 02-22-2024 14:58-0400 SaO2% (BldA) [Mass fraction] 97 % Xu Pedro PA Work Phone: [facility] 02-22-2024 14:58-0400 Systolic blood pressure 109 mm[Hg] Xu Pedro PA Work Phone: [facility] 02-10-2024 11:06-0400 Body height 172.7 cm Charles Tim MANAGEMENT DEPARTMENT CHAIR-CAREER PLACEMENT SERVICES COUNSELOR Work Phone: [facility] 02-10-2024 11:06-0400 Body mass index (BMI) [Ratio] 30.41 kg/m2 Charles Tim MANAGEMENT DEPARTMENT CHAIR-CAREER PLACEMENT SERVICES COUNSELOR Work Phone: [facility] 02-10-2024 11:06-0400 Body weight 90.72 kg Charles Tim MANAGEMENT DEPARTMENT CHAIR-CAREER PLACEMENT SERVICES COUNSELOR Work Phone: [facility] 01-20-2024 09:59-0400 Body height 172.7 cm Xu Persaudlinda PA Work Phone: [facility] 01-20-2024 09:59-0400 Body mass index (BMI) [Ratio] 30.41 kg/m2 Xu Persaudlinda PA Work Phone: [facility] 01-20-2024 09:59-0400 Body weight 90.72 kg Xu Persaudlinda PA Work Phone: [facility] 01-20-2024 09:59-0400 Diastolic blood pressure 80 mm[Hg] Xu Persaudlinda PA Work Phone: [facility] 01-20-2024 09:59-0400 Heart rate 85 /min Xu Pedro PA Work Phone: [facility] 01-20-2024 09:59-0400 Respiratory rate 18 /min Xu Pedro PA Work Phone: [facility] 01-20-2024 09:59-0400 SaO2% (BldA) [Mass fraction] 97 % Xu PORRAS Work Phone: [facility] 01-20-2024 09:59-0400 Systolic blood pressure 132 mm[Hg] Xu PORRAS Work Phone: [facility] 12-02-2023 14:55-0400 Body height 170.2 cm Charles Tim MANAGEMENT DEPARTMENT CHAIR-CAREER PLACEMENT SERVICES COUNSELOR Work Phone: [facility] 12-02-2023 14:55-0400 Body mass index (BMI) [Ratio] 31.32 kg/m2 Charles Tim MANAGEMENT DEPARTMENT CHAIR-CAREER PLACEMENT SERVICES COUNSELOR Work Phone: [facility] 12-02-2023 14:55-0400 Body weight 90.72 kg Charles Tim MANAGEMENT DEPARTMENT CHAIR-CAREER PLACEMENT SERVICES COUNSELOR Work Phone: [facility] 12-02-2023 14:55-0400 Diastolic blood pressure 81 mm[Hg] Charles Tim MANAGEMENT DEPARTMENT CHAIR-CAREER PLACEMENT SERVICES COUNSELOR Work Phone: [facility] 12-02-2023 14:55-0400 Heart rate 100 /min Charles Tim MANAGEMENT DEPARTMENT CHAIR-CAREER PLACEMENT SERVICES COUNSELOR Work Phone: [facility] [employer] [facility] 12-02-2023 14:55-0400 Systolic blood pressure 125 mm[Hg] Charles Tim MANAGEMENT DEPARTMENT CHAIR-CAREER PLACEMENT SERVICES COUNSELOR Work Phone: [facility] 11-16-2023 13:17-0400 Blood Pressure Location Michel ROBBINS [facility] [place] 11-16-2023 13:17-0400 Diastolic blood pressure 78 mm[Hg] Michel ROBBINS [facility] [place] 11-16-2023 13:17-0400 Heart rate 72 /min Michel ROBBINS [facility] [place] 11-16-2023 13:17-0400 Respiratory rate 16 /min Michel ROBBINS [facility] [place] 11-16-2023 13:17-0400 Systolic blood pressure 118 mm[Hg] Michel ROBBINS [facility] [place] 11-04-2023 10:19-0400 Body height 170.2 cm Darrell Olsen MD Work Phone: [facility] [employer] [facility] 11-04-2023 10:19-0400 Body mass index (BMI) [Ratio] 31.64 kg/m2 Darrell Olsen MD Work Phone: [facility] [employer] [facility] 11-04-2023 10:19-0400 Body weight 91.63 kg Darrell Olsen MD Work Phone: [facility] [employer] [facility] 10-29-2023 06:05-0400 Body temperature 97.9 [degF] MD Donna Herrera Work Phone: [facility] 10-29-2023 06:05-0400 Diastolic blood pressure 74 mm[Hg] MD Donna Herrera Work Phone: [facility] 10-29-2023 06:05-0400 Heart rate 72 /min MD Donna Herrera Work Phone: [facility] 10-29-2023 06:05-0400 Respiratory rate 16 /min MD Donna Herrera Work Phone: [facility] 10-29-2023 06:05-0400 SaO2% (BldA) [Mass fraction] 98 % MD Donna Herrera Work Phone: [facility] 10-29-2023 06:05-0400 Systolic blood pressure 124 mm[Hg] MD Donna Herrera Work Phone: [facility] 10-28-2023 09:50-0400 Body height 172.72 cm MD Donna Herrera Work Phone: [facility] 10-27-2023 14:36-0400 Body weight 90 kg MD Donna Herrera Work Phone: [facility] 10-08-2023 13:45-0500 Body height 172.7 cm [facility] [address] [place] [address] 10-08-2023 13:45-0500 Body mass index (BMI) [Ratio] 30.77 kg/m2 [facility] [address] [place] [address] 10-08-2023 13:45-0500 Body temperature 97.7 [degF] [address] 10-08-2023 13:45-0500 Body weight 91.8 kg [facility] [address] [place] [address] 10-08-2023 13:45-0500 Diastolic blood pressure 81 mm[Hg] [facility] [address] [place] [address] 10-08-2023 13:45-0500 Heart rate 74 /min [facility] [address] [place] [address] 10-08-2023 13:45-0500 Respiratory rate 18 /min [facility] [address] [place] [address] 10-08-2023 13:45-0500 SaO2% (BldA) [Mass fraction] 93 % [address] 10-08-2023 13:45-0500 Systolic blood pressure 125 mm[Hg] [address] 09-23-2023 11:38-0500 Body height 172.7 cm Charles Tim MANAGEMENT DEPARTMENT CHAIR-CAREER PLACEMENT SERVICES COUNSELOR Work Phone: [facility] 09-23-2023 11:38-0500 Body mass index (BMI) [Ratio] 30.41 kg/m2 Charles Tim MANAGEMENT DEPARTMENT CHAIR-CAREER PLACEMENT SERVICES COUNSELOR Work Phone: [facility] 09-23-2023 11:38-0500 Body weight 90.72 kg Charlesnaresh Tim MANAGEMENT DEPARTMENT CHAIR-CAREER PLACEMENT SERVICES COUNSELOR Work Phone: [facility] 09-02-2023 09:59-0500 Body height 172.7 cm Charles Tim MANAGEMENT DEPARTMENT CHAIR-CAREER PLACEMENT SERVICES COUNSELOR Work Phone: [facility] 09-02-2023 09:59-0500 Body mass index (BMI) [Ratio] 30.41 kg/m2 Charlesnaresh Tim MANAGEMENT DEPARTMENT CHAIR-CAREER PLACEMENT SERVICES COUNSELOR Work Phone: [facility] 09-02-2023 09:59-0500 Body weight 90.72 kg Charles Tim MANAGEMENT DEPARTMENT CHAIR-CAREER PLACEMENT SERVICES COUNSELOR Work Phone: [facility] 09-02-2023 09:59-0500 Diastolic blood pressure 77 mm[Hg] Charles Tim MANAGEMENT DEPARTMENT CHAIR-CAREER PLACEMENT SERVICES COUNSELOR [facility] 09-02-2023 09:59-0500 Heart rate 74 /min Charles Tim MANAGEMENT DEPARTMENT CHAIR-CAREER PLACEMENT SERVICES COUNSELOR [facility] 09-02-2023 09:59-0500 Systolic blood pressure 115 mm[Hg] Charles Tim MANAGEMENT DEPARTMENT CHAIR-CAREER PLACEMENT SERVICES COUNSELOR [facility] 08-19-2023 13:20-0500 Body height 172.7 cm Xu Nienberg PA [facility] 08-19-2023 13:20-0500 Body mass index (BMI) [Ratio] 31.32 kg/m2 Xu Nienberg PA [facility] 08-19-2023 13:20-0500 Body weight 93.44 kg Xu Nienberg PA [facility] 08-19-2023 13:20-0500 Diastolic blood pressure 87 mm[Hg] Xu Nienberg PA [facility] 08-19-2023 13:20-0500 Heart rate 81 /min Xu Nienberg PA [facility] 08-19-2023 13:20-0500 Respiratory rate 18 /min Xu Nienberg PA [facility] 08-19-2023 13:20-0500 SaO2% (BldA) [Mass fraction] 98 % Xu Nienberg PA Work Phone: [employer] 08-19-2023 13:20-0500 Systolic blood pressure 142 mm[Hg] Xu Nienberg PA [facility] 05-25-2023 09:40-0400 Body height 175.26 cm Trino Cadet Other [employer] Other 05-25-2023 09:40-0400 Body mass index (BMI) [Ratio] 29.83 kg/m2 Trino Cadet Other [employer] Other 05-25-2023 09:40-0400 Body weight 91.63 kg Trino Cadet Other [employer] Other 09-15-2022 15:40-0500 Body height 175.26 cm Trino Cadet Other [employer] Other 09-15-2022 15:40-0500 Body mass index (BMI) [Ratio] 30.27 kg/m2 Trino Cadet Other [employer] Other 09-15-2022 15:40-0500 Body weight 92.99 kg Trino Cadet Other [employer] Other 09-15-2022 15:40-0500 Diastolic blood pressure 70 mm[Hg] Trino Cadet Other [employer] Other 09-15-2022 15:40-0500 Systolic blood pressure 116 mm[Hg] Trino Cadet Other [employer] Other 08-04-2022 12:20-0500 Body height 175.26 cm Trino Cadet Other [employer] Other 08-04-2022 12:20-0500 Body mass index (BMI) [Ratio] 30.27 kg/m2 Trino Cadet Other [employer] Other 08-04-2022 12:20-0500 Body weight 92.99 kg Trino Cadet Other [employer] Other 08-05-2021 12:20-0500 Body height 175.26 cm Trino Cadet Other [employer] Other 08-05-2021 12:20-0500 Body mass index (BMI) [Ratio] 30.27 kg/m2 Trino Cadet Other [employer] Other 08-05-2021 12:20-0500 Body weight 92.99 kg Trino Cadet Other [employer] Other Encounters Encounter Date Encounter Type Care Provider Facility Start: 05-17-2025 End: 05-17-2025 Office outpatient visit 25 minutes Xu Troy PA Work Phone: [facility] Comment on above: Cervical disc displa cement (Primary Dx); Lumbosacral spondylosis without myelopathy Start: 05-17-2025 End: 05-17-2025 ambulatory XU TROY [facility] Start: 05-14-2025 End: 05-14-2025 Bamboo flowsheet Elham Garcia PT [facility] Start: 05-14-2025 End: 05-14-2025 Bamboo flowsheet Elham Garcia PT [facility] Start: 05-14-2025 End: 05-14-2025 ambulatory Elham Garcia PT [facility] Comment on above: Spondylosis without myelopathy or radiculopathy, cervical region (Primary Dx) Start: 05-10-2025 End: 05-10-2025 Bamboo flowsheet Elham Garcia PT [facility] Start: 05-10-2025 End: 05-10-2025 Bamboo flowsheet Elham Garcia PT [facility] Start: 05-10-2025 End: 05-10-2025 ambulatory Elham Garcia PT [facility] Comment on above: Spondylosis without myelopathy or radiculopathy, cervical region (Primary Dx) Start: 05-09-2025 End: 05-16-2025 Telephone encounter Leslye Villa RN [facility] Start: 05-07-2025 End: 05-07-2025 Bamboo flowsheet Elham Garcia PT [facility] Start: 05-07-2025 End: 05-07-2025 Bamboo flowsheet Elham Garcia PT [facility] Start: 05-07-2025 End: 05-07-2025 ambulatory Elham Garcia PT [facility] Comment on above: Spondylosis without myelopathy or radiculopathy, cervical region (Primary Dx) Start: 05-04-2025 End: 05-04-2025 ambulatory DAVE GARCIA [facility] Start: 05-02-2025 End: 05-02-2025 Bamboo flowsheet Guadalupe Brink AEROSOL LINE OPERATOR [facility] Start: 05-02-2025 End: 05-02-2025 Bamboo flowsheet Guadalupe Brink AEROSOL LINE OPERATOR [facility] Start: 05-02-2025 End: 05-02-2025 ambulatory Guadalupe Brink AEROSOL LINE OPERATOR [facility] Comment on above: Spondylosis without myelopathy or radiculopathy, cervical region (Primary Dx) Start: 04-27-2025 End: 04-27-2025 Bamboo flowsheet Elham Garcia PT [facility] Start: 04-27-2025 End: 04-27-2025 Bamboo flowsheet Elham Garcia PT [facility] Start: 04-27-2025 End: 04-27-2025 ambulatory Elham Garcia PT [facility] Comment on above: Spondylosis without myelopathy or radiculopathy, cervical region (Primary Dx) Start: 04-24-2025 End: 04-24-2025 Office outpatient visit 25 minutes Xu Troy PA Work Phone: [facility] Comment on above: Disorder of sacrum ( Primary Dx); Cervical spondylosis without myelopathy Start: 04-24-2025 End: 04-24-2025 ambulatory XU TROY [facility] Start: 02-20-2025 End: 02-20-2025 Office outpatient visit 15 minutes Xu Troy PA Work Phone: [facility] Comment on above: Lumbosacral spondylo sis without myelopathy (Primary Dx) Start: 02-20-2025 End: 02-20-2025 ambulatory [facility] Start: 02-15-2025 End: 02-15-2025 ambulatory [facility] Start: 01-19-2025 End: 01-19-2025 ambulatory [facility] Start: 01-18-2025 End: 01-18-2025 Office outpatient visit 15 minutes Xu Troy PA Work Phone: [facility] Comment on above: Disc displacement, t horacic (Primary Dx) Start: 01-18-2025 End: 01-18-2025 ambulatory [facility] Start: 01-17-2025 End: 01-18-2025 Telephone encounter Leslye Villa RN [facility] Start: 01-13-2025 End: 01-13-2025 Emergency department patient visit DONNA Blanchard Grace [facility] Start: 12-28-2024 End: 12-28-2024 [facility] Start: 12-28-2024 End: 12-28-2024 Office outpatient visit 25 minutes Xu PORRAS Work Phone: [facility] Comment on above: Disorder of sacrum ( Primary Dx); Chronic pain of left ankle; Lumbosacral spondylosis without myelopathy Start: 12-28-2024 End: 12-28-2024 ambulatory [facility] Start: 12-15-2024 End: 12-15-2024 ambulatory [facility] Start: 12-05-2024 End: 12-05-2024 Office outpatient visit 25 minutes Xu Troy PA Work Phone: [facility] Comment on above: Spinal stenosis of l umbar region with neurogenic claudication (Primary Dx) Start: 12-05-2024 End: 12-05-2024 ambulatory XUDAYANNA TROY [facility] Start: 11-30-2024 End: 11-30-2024 Refill Kathy Boonie [facility] Comment on above: Disorder of sacrum Start: 10-05-2024 End: 10-05-2024 Office outpatient visit 15 minutes Xu Troy PA Work Phone: [facility] Comment on above: Lumbosacral spondylo sis without myelopathy (Primary Dx) Start: 10-05-2024 End: 10-05-2024 ambulatory XU S [facility] Start: 09-15-2024 End: 09-15-2024 ambulatory DAVE GARCIA [facility] Start: 08-29-2024 End: 08-29-2024 Office outpatient visit 15 minutes Xu Troy PA Work Phone: [facility] Comment on above: Spinal stenosis of l umbar region with neurogenic claudication (Primary Dx) Start: 08-29-2024 End: 08-29-2024 ambulatory XU Barreto [facility] Start: 08-22-2024 End: 08-22-2024 Refill Kathy Boonie [employer] [facility] Comment on above: Lumbosacral spondylo sis without myelopathy Start: 06-27-2024 End: 06-27-2024 Office outpatient visit 15 minutes Xu Troy PA Work Phone: [facility] Comment on above: Lumbosacral spondylo sis without myelopathy (Primary Dx) Start: 06-27-2024 End: 06-27-2024 ambulatory XU [facility] Start: 06-07-2024 End: 06-07-2024 Refill Xu PORRAS Work Phone: [facility] Comment on above: Disorder of sacrum; Lumbosacral spondylosis without myelopathy Start: 04-13-2024 End: 04-13-2024 Office outpatient visit 15 minutes Xu PORRAS Work Phone: [facility] Comment on above: Disorder of sacrum ( Primary Dx) Start: 04-04-2024 End: 04-06-2024 Refill Elena Dey RN [facility] Comment on above: Lumbosacral spondylo sis without myelopathy Start: 02-22-2024 End: 02-22-2024 Office outpatient visit 15 minutes Xu PORRAS Work Phone: [facility] Comment on above: Disorder of sacrum ( Primary Dx); Lumbosacral spondylosis without myelopathy Start: 02-10-2024 End: 02-10-2024 Office outpatient visit 15 minutes Charles Tim MANAGEMENT DEPARTMENT 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-CAREER PLACEMENT SERVICES COUNSELOR Work Phone: [facility] Comment on above: Status post lumbar l aminectomy (Primary Dx) Start: 01-20-2024 End: 01-20-2024 Office outpatient visit 15 minutes Xu PORRAS Work Phone: [facility] Comment on above: Disorder of sacrum ( Primary Dx); Lumbosacral spondylosis without myelopathy Start: 12-29-2023 End: 12-29-2023 ambulatory Michel ROBBINS Facility:[facility] Start: 12-29-2023 End: 12-29-2023 Patient encounter procedure Michel ROBBINS [facility] [place] Start: 12-22-2023 End: 12-22-2023 ambulatory Michel Robbins Facility:[facility] Start: 12-22-2023 End: 12-22-2023 ambulatory MD Donna Herrera Work Phone: [facility] Work Phone: Start: 12-22-2023 End: 12-22-2023 Departed Referred MD Donna Herrera Work Phone: [facility] Start: 12-22-2023 End: 12-22-2023 ambulatory Michel R NILL Facility::[id number] Start: 12-20-2023 End: 12-20-2023 Telephone encounter Radha Bustillos RN [facility] Comment on above: pain Start: 12-02-2023 End: 12-02-2023 ambulatory [facility] Start: 12-02-2023 End: 12-02-2023 Postop follow up visit related to original px Charles Tim MANAGEMENT DEPARTMENT CHAIR-CAREER PLACEMENT SERVICES COUNSELOR Work Phone: [facility] Comment on above: Status post lumbar l aminectomy (Primary Dx) Start: 11-26-2023 End: 11-29-2023 Refill Kathy Ziegler [facility] Comment on above: Disorder of sacrum ( Primary Dx) Start: 11-16-2023 End: 11-16-2023 ambulatory Donna Herrera Facility: [place] Start: 11-16-2023 End: 11-16-2023 Patient encounter procedure Michel R NILL General Surgery Nill/Said [facility] Start: 11-04-2023 End: 11-04-2023 ambulatory PECOS Vlad [facility] Start: 11-04-2023 End: 11-04-2023 Postop follow up visit related to original px Darrell Olsen MD Work Phone: [facility] Comment on above: Status post lumbar l aminectomy (Primary Dx) Start: 10-28-2023 Non-patient / Non-visit MD Marry Herrera Work Phone: [facility] Work Phone: Start: 10-28-2023 End: 10-29-2023 Non-patient / Non-visit MD Donna Herrera Work Phone: [facility] Work Phone: Start: 10-27-2023 End: 10-29-2023 Evaluation and management of inpatient [facility] Start: 10-27-2023 End: 10-29-2023 Evaluation and management of inpatient MD Donna Herrera Work Phone: [facility] Work Phone: Start: 10-23-2023 End: 10-27-2023 ambulatory MARVA Batista [facility] Start: 10-22-2023 End: 10-27-2023 Evaluation and management of inpatient [facility] Start: 10-22-2023 End: 10-27-2023 Evaluation and management of inpatient [facility] Start: 10-08-2023 End: 10-08-2023 ambulatory [facility] Start: 10-08-2023 Telephone encounter Rad[facility] Start: 10-08-2023 End: 10-08-2023 Patient encounter procedure [facility] Provider 5 [facility] Comment on above: Spinal stenosis of l umbar region with neurogenic claudication Start: 10-07-2023 ambulatory [facility] Facility:Jasiel Simons Start: 09-23-2023 End: 09-24-2023 ambulatory [facility] Start: 09-23-2023 Encounter for other preprocedural examination [facility] Start: 09-23-2023 End: 09-23-2023 ambulatory [facility] Start: 09-23-2023 Encounter for other preprocedural examination [facility] Start: 09-23-2023 End: 09-23-2023 Office outpatient new 60 minutes Charles Tim MANAGEMENT DEPARTMENT CHAIR-CAREER PLACEMENT SERVICES COUNSELOR Work Phone: [facility] Comment on above: Spinal stenosis of l umbar region with neurogenic claudication (Primary Dx); Pre-op testing; Radiculopathy, lumbar region Start: 09-23-2023 End: 09-23-2023 Patient encounter status Charles Tim MANAGEMENT DEPARTMENT CHAIR-CAREER PLACEMENT SERVICES COUNSELOR Work Phone: [facility] Start: 09-16-2023 Refill Kathy Ziegler CNA [facility] Comment on above: Disorder of sacrum Start: 09-02-2023 End: 09-03-2023 ambulatory CHARLES TIM [facility] Start: 09-02-2023 End: 09-02-2023 Office outpatient new 45 minutes Charles Tim MANAGEMENT DEPARTMENT CHAIR-CAREER PLACEMENT SERVICES COUNSELOR Work Phone: [facility] Comment on above: Spinal stenosis of l umbar region with neurogenic claudication (Primary Dx); History of lumbar fusion; Radiculopathy, lumbar region; Lumbar radiculopathy Start: 08-19-2023 End: 08-19-2023 Office outpatient visit 15 minutes Xu PORRAS Work Phone: [facility] Comment on above: Spinal stenosis of l umbar region with neurogenic claudication (Primary Dx) Start: 05-25-2023 End: 05-25-2023 ambulatory Trino Cadet Other [facility] Other Start: 05-25-2023 Office outpatient vi sit 15 minutes Trino Cadet [facility] Start: 05-24-2023 End: 05-24-2023 ambulatory Trino Cadet Facility:[facility] Start: 05-24-2023 End: 05-24-2023 ambulatory MD Donna Herrera Work Phone: [facility] Work Phone: Start: 05-24-2023 End: 05-24-2023 Patient encounter procedure MD Donna Herrera Work Phone: [facility] Work Phone: Start: 09-15-2022 End: 09-15-2022 ambulatory Trino Cadet Other [employer] Other Start: 09-15-2022 Office outpatient vi sit 15 minutes Trino Cadet [facility] Start: 09-08-2022 Encounter for genera l adult medical examination without abnormal findings DR DONNA HERRERA [facility] Start: 09-03-2022 End: 09-04-[address] DONNA HERRERA Facility:[facility] Start: 09-03-2022 End: 09-04-2022 Encounter for general adult medical examination without abnormal findings DR DONNA HERRERA Facility:[facility] Start: 08-04-2022 End: 08-04-2022 ambulatory Trino Cadet Other [employer] Other Start: 08-04-2022 Office outpatient vi sit 15 minutes Trino Cadet [facility] Start: 02-03-2022 End: 02-03-[address] DONNA HERRERA Facility:[facility] Start: 02-03-2022 End: 02-03-[address] DONNA HERRERA Facility:[facility] Start: 01-01-2022 End: 01-01-[address] DONNA HERRERA Facility:[facility] Start: 08-05-2021 End: 08-05-2021 ambulatory Trino Cadet Other [employer] Other Start: 08-05-2021 Office outpatient vi sit 15 minutes Trino Cadet [facility] Procedures Date Procedure Procedure Detail Performing Clinician Start: 12-22-2023 Colonoscopy Elham Garcia PT Start: 12-22-2023 Colonoscopy Michel ROBBINS Start: 12-22-2023 [...] on above: Performed By: #### [facility] #### [facility] [address] [place] [address] Dr. Randall Ayoub Arthroscopy of shoulder Keron ROBBINS History of lumbar laminectomy Michel ROBBINS History of repair of musculotendinous cuff of shoulder Trino Cadet Other Laser assisted in si tu keratomileusis Michel ROBBINS Lumbar spinal fusion Michel ROBBINS Plan of Treatment Date Care Activity Detail Author Start: 12-21-2033 Screening for malign ant neoplasm of colon [facility] Start: 01-01-2032 DTaP,Tdap and Td Vaccines (3 - Td or Tdap) DTaP,Tdap and Td Vaccines (3 - Td or Tdap) [facility] Start: 05-17-2026 Adult BMI Screening Adult BMI Screen ing [facility] Start: 05-17-2026 Tobacco Screening Tobacco Screening [facility] Start: 05-04-2026 Tobacco Screening Tobacco Screening [facility] Start: 04-24-2026 Tobacco Screening Tobacco Screening [facility] Start: 02-20-2026 Adult BMI Screening Adult BMI Screen ing [facility] Start: 02-20-2026 Tobacco Screening Tobacco Screening [facility] Start: 01-19-2026 Tobacco Screening Tobacco Screening [facility] Start: 01-13-2026 Adult BMI Screening Adult BMI Screen ing [facility] Start: 01-13-2026 Tobacco Screening Tobacco Screening [facility] Start: 12-28-2025 Tobacco Screening Tobacco Screening [facility] Start: 12-05-2025 Adult BMI Screening Adult BMI Screen ing [facility] Start: 12-05-2025 Tobacco Screening Tobacco Screening [facility] Start: 10-05-2025 Tobacco Screening Tobacco Screening [facility] Start: 08-29-2025 Adult BMI Screening Adult BMI Screen ing [facility] Start: 08-29-2025 Tobacco Screening Tobacco Screening [facility] Start: 06-27-2025 Adult BMI Screening Adult BMI Screen ing [facility] Start: 06-27-2025 Tobacco Screening Tobacco Screening [facility] Start: 06-07-2025 End: 06-07-2025 Patient encounter procedure 06/07/2025 11:15 AM EDT Office Visit [facility] [address] [place] [phone] Xu Troy, PA [address] [place] [address] [facility] Start: 05-17-2025 End: 05-17-2025 Patient encounter procedure 05/17/2025 12:15 PM EDT Office Visit [facility] [address] [place] [phone] Xu Troy PA [address] [place] [address] [facility] Start: 05-17-2025 End: 05-17-2025 ambulatory [facility] Start: 05-14-2025 End: 05-14-2025 ambulatory 05/14/2025 9:00 AM EDT Treatment [facility] [address] [place] [address] Elham Garcia, PT [facility] Start: 05-12-2025 Tobacco Screening Tobacco Screening [facility] Start: 05-10-2025 End: 05-10-2025 ambulatory [facility] Comment on above: Arrived Start: 05-07-2025 End: 05-07-2025 ambulatory [facility] Comment on above: Spondylosis without myelopathy or radiculopathy, cervical region (Primary Dx) Start: 05-04-2025 End: 05-04-2025 Admission to same day surgery center 05/04/2025 12:11 PM EDT - 05/04/2025 12:22 PM EDT Surgery [facility] [address] [phone] Dave Garcia MD [address] [place], [place] [phone] RADIOFREQUENCY ABLATION SI JOINT [77812 (CPT )] [facility] Comment on above: RADIOFREQUENCY ABLAT ION SI JOINT [86578 (CPT )] Start: 05-04-2025 End: 05-04-2025 Radiofrequency abltj nrv nrvtg si jt w/img gdn RADIOFREQUENCY ABLATION SI JOINT Disorder of sacrum 05/04/2025 12:11 PM EDT [facility] Start: 05-04-2025 Subsequent hospital visit by physician 05/04/2025 12:11 PM EDT Hospital Encounter [facility] [address] [place] [phone] Dave Garcia MD [address] [facility] [place], [place] [phone] [facility] Start: 05-02-2025 End: 05-02-2025 ambulatory [facility] Comment on above: Arrived Start: 04-27-2025 End: 04-27-2025 ambulatory 04/27/2025 10:30 AM EDT Evaluation [facility] [address] [place] [address] Elham Garcia, PT [facility]rived [facility] Comment on above: Arrived Start: 04-24-2025 End: 04-24-2025 Patient encounter procedure 04/24/2025 9:30 AM EDT Office Visit [facility] [address] [place] [phone] Xu Troy, PA [address] [place], [place] [address] [facility] Start: 04-16-2025 Influenza vaccination P [facility] Start: 04-13-2025 Adult BMI Screening Adult BMI Screen ing [facility] Start: 04-13-2025 Tobacco Screening Tobacco Screening [facility] Start: 02-21-2025 Adult BMI Screening Adult BMI Screen ing [facility] Start: 02-21-2025 Tobacco Screening Tobacco Screening [facility] Start: 02-20-2025 End: 02-20-2025 Patient encounter procedure 02/20/2025 9:45 AM EDT Office Visit [facility] [address] [facility] [place] [phone] Xu Troy, PA [address] [place] [address] [facility] Start: 02-15-2025 End: 02-15-2025 Patient encounter procedure 02/15/2025 6:45 AM EDT Appointment [facility] [address] [place] [address] Xu Troy, PA [address] Floor [facility] [place] [address] [facility] Start: 02-03-2025 Tobacco Screening Tobacco Screening [facility] Start: 01-19-2025 Adult BMI Screening Adult BMI Screen ing [facility] Start: 01-19-2025 Tobacco Screening Tobacco Screening [facility] Start: 01-19-2025 End: 01-19-2025 Admission to same day surgery center [facility] Comment on above: RADIOFREQUENCY ABLAT ION SI JOINT [87941 (CPT )] RADIOFREQUENCY ABLAT ION SPINAL Left SI [80338 (CPT )] Start: 01-19-2025 End: 01-19-2025 Radiofrequency abltj nrv nrvtg si jt w/img gdn [facility] Start: 01-19-2025 Subsequent hospital visit by physician 01/19/2025 11:15 AM EDT Hospital Encounter [facility] [address] [place] [phone] Dave Garcia MD [address] [place] [address] [facility] Start: 01-19-2025 End: 01-19-2025 Patient encounter procedure 01/19/2025 9:05 AM EDT Appointment [facility]iology [address] [place] [phone] Dave Garcia MD [address] [place] [address] [facility] Start: 12-28-2024 End: 12-28-2024 Patient encounter procedure 12/28/2024 1:30 PM EDT Office Visit [facility] [address] [place] [address] Xu Troy PA [address], [address] [place] [address] [facility] Start: 12-15-2024 End: 12-15-2024 Admission to same day surgery center 12/15/2024 1:13 PM EDT - 12/15/2024 1:20 PM EDT Surgery [facility] [address] [place] [phone] Dave Garcia MD [address] [place], [place] [phone] INJECTION SPINE TRANSFORAMINAL Left L 1,2 Nroot [76477 (CPT )] [facility] Comment on above: INJECTION SPINE NELSON SFORAMINAL Left L 1,2 Nroot [87427 (CPT )] Start: 12-15-2024 End: 12-15-2024 Njx anes&/strd w/img tfrml edrl lmbr/sac 1 lvl INJECTION SPINE TRANSFORAMINAL Spinal stenosis of lumbar region with neurogenic claudication 12/15/2024 1:13 PM EDT [facility] Start: 12-15-2024 Subsequent hospital visit by physician 12/15/2024 1:13 PM EDT Hospital Encounter [facility] [address] [facility] [place] [phone] Dave Garcia MD [address] [facility], [place] [phone] [facility] Start: 12-05-2024 End: 12-05-2024 Patient encounter procedure 12/05/2024 11:15 AM EDT Office Visit [facility] [address] [place] [phone] Xu Troy PA [address], [address] [place] [address] [facility] Start: 12-01-2024 Adult BMI Screening Adult BMI Screen ing [facility] Start: 12-01-2024 Tobacco Screening Tobacco Screening [facility] Start: 11-09-2024 Tobacco Screening Tobacco Screening [facility] Start: 11-03-2024 Adult BMI Screening Adult BMI Screen ing [facility] Start: 10-05-2024 End: 10-05-2024 Patient encounter procedure 10/05/2024 1:30 PM EST Office Visit [facility] [address] [place] [phone] Xu Troy, PA [address] [place] [address] [facility] Start: 09-23-2024 Adult BMI Screening Adult BMI Screen ing [facility] Start: 09-23-2024 Tobacco Screening Tobacco Screening [facility] Start: 09-15-2024 End: 09-15-2024 Admission to same day surgery center 09/15/2024 8:27 AM EST - 09/15/2024 8:34 AM EST Surgery [facility] [address] [place] [phone] Dave Garcia MD [address] [place], [place] [phone] INJECTION SPINE TRANSFORAMINAL: right L12 [15526 (CPT )] [facility] Comment on above: INJECTION SPINE NELSON SFORAMINAL: right L12 [79463 (CPT )] Start: 09-15-2024 End: 09-15-2024 Njx anes&/strd w/img tfrml edrl lmbr/sac 1 lvl INJECTION SPINE TRANSFORAMINAL Spinal stenosis of lumbar region with neurogenic claudication 09/15/2024 8:27 AM EST [facility] Start: 09-15-2024 Subsequent hospital visit by physician 09/15/2024 8:27 AM EST Hospital Encounter [facility] [address] [place] [address] Dave Garcia MD [address] [place] [address] [facility] Start: 09-02-2024 Adult BMI Screening Adult BMI Screen ing [facility] Start: 09-02-2024 Tobacco Screening Tobacco Screening [facility] Start: 08-29-2024 End: 08-29-2024 Patient encounter procedure 08/29/2024 1:00 PM EST Office Visit [facility] [address] [place] [phone] Xu Troy PA [address] [place] [address] [facility] Start: 08-19-2024 Adult BMI Screening Adult BMI Screen ing [facility] Start: 08-19-2024 Tobacco Screening Tobacco Screening [facility] Start: 06-27-2024 End: 06-27-2024 Patient encounter procedure 06/27/2024 12:45 PM EST Office Visit [facility] [address] [place] [address] Xu Troy PA [address] [place] [address] [facility] Start: 05-26-2024 End: 05-26-2024 Admission to same day surgery center 05/26/2024 9:30 AM EDT - 05/26/2024 9:42 AM EDT Surgery [facility] [address] [place] [address] Dave Garcia MD [address] [place] [address] RADIOFREQUENCY ABLATION SPINAL: left SI [49596 (CPT )] [facility] Comment on above: RADIOFREQUENCY ABLAT ION SPINAL: left SI [51390 (CPT )] Start: 05-26-2024 End: 05-26-2024 Radiofrequency abltj nrv nrvtg si jt w/img gdn RADIOFREQUENCY ABLATION SPINAL Disorder of sacrum 05/26/2024 9:30 AM EDT [facility] Start: 05-26-2024 Subsequent hospital visit by physician 05/26/2024 9:30 AM EDT Hospital Encounter [facility] [address] [place] [address] Dave Garcia MD [address] [place] [address] [facility] Start: 05-12-2024 End: 05-12-2024 Admission to same day surgery center 05/12/2024 12:12 PM EDT - 05/12/2024 12:24 PM EDT Surgery [facility] [address] [place] [address] Dave Garcia MD [address] [place] [address] RADIOFREQUENCY ABLATION SPINAL: right SI [28999 (CPT )] [facility] Comment on above: RADIOFREQUENCY ABLAT ION SPINAL: right SI [39220 (CPT )] Start: 05-12-2024 End: 05-12-2024 Radiofrequency abltj nrv nrvtg si jt w/img gdn RADIOFREQUENCY ABLATION SPINAL Disorder of sacrum 05/12/2024 12:12 PM EDT [facility] Start: 05-12-2024 Subsequent hospital visit by physician 05/12/2024 12:12 PM EDT Hospital Encounter [facility] [address] [place] [address] Dave Garcia MD [address] [facility] [place] [phone] [facility] Start: 04-16-2024 COVID-19 Vaccine ( season) COVID-19 Vaccine ( season) [facility] Start: 04-16-2024 Influenza vaccination Influenza Vacc ine [facility] Start: 04-13-2024 End: 04-13-2024 Patient encounter procedure 04/13/2024 2:15 PM EDT Office Visit [facility] [address] [place] [phone] Xu Troy PA [address], [address] [place], [place] [phone] [facility] Start: 03-14-2024 End: 03-14-2024 Patient encounter procedure 03/14/2024 2:00 PM EDT Office Visit [facility] [address] [place] [phone] Darrell Olsen MD [address] [place] [phone] [facility] Start: 02-22-2024 End: 02-22-2024 Patient encounter procedure 02/22/2024 2:45 PM EDT Office Visit [facility] [address] [place] [phone] Xu Troy PA [address], [address] [place], [place] [phone] [facility] Start: 02-10-2024 End: 02-10-2024 Patient encounter procedure 02/10/2024 10:30 AM EDT Office Visit [facility] [place] [phone] Darrell Olsen MD [address] [place] [address] [address] [place] [address] [facility] Start: 02-04-2024 End: 02-04-2024 Admission to same day surgery center 02/04/2024 11:46 AM EDT - 02/04/2024 11:53 AM EDT Surgery [facility] [address] [place] [phone] Dave Garcia MD [address] [facility] [place], [place] [phone] INJECTION BLOCK SACROILIAC JOINT [64229 (CPT )] [facility] Comment on above: INJECTION BLOCK SACR OILIAC JOINT [80458 (CPT )] Start: 02-04-2024 End: 02-04-2024 Inject si joint arthrgrphy&/anes/steroid w/cas INJECTION BLOCK SACROILIAC JOINT Disorder of sacrum 02/04/2024 11:46 AM EDT [facility] Start: 02-04-2024 Subsequent hospital visit by physician 02/04/2024 11:46 AM EDT Hospital Encounter [facility] [address] [place] [phone] Dave Garcia MD [address] [place], [place] [phone] [facility] Start: 12-02-2023 End: 12-02-2023 Patient encounter procedure 12/02/2023 3:00 PM EDT Office Visit [facility] [address] [place] [phone] Darrell Olsen MD [address] [place] [address] [address] [place] [address] [facility] Start: 10-29-2023 [facility] Start: 10-27-[address] [facility] Start: 10-27-2023 Referral to clinical traveling storekeeper [facility] Start: 10-22-2023 End: 10-22-2023 Admission to same day surgery center 10/22/2023 7:30 AM EST - 10/22/2023 9:15 AM EST Surgery [facility] [address] [place] [phone] Darrell Olsen MD [address] [place] [address] [address] [place] [address] LAMINECTOMY LUMBAR SINGLE LEVEL / L1-L2 [facility] Comment on above: LAMINECTOMY LUMBAR S RICHMOND LEVEL / L1-L2 Start: 10-22-2023 End: 10-22-2023 LAMINECTOMY LUMBAR SINGLE LEVEL LAMINECTOMY LUMBAR SINGLE LEVEL Spinal stenosis of lumbar region with neurogenic claudication 10/22/2023 7:30 AM EST [facility] Start: 10-22-2023 Subsequent hospital visit by physician 10/22/2023 7:30 AM EST Hospital Encounter [facility] Surgery [address] [place] [phone] Darrell Olsen MD [address] [place] [address] [address] [place] [address] [facility] Start: 10-08-2023 End: 10-08-2023 Patient encounter procedure 10/08/2023 1:15 PM EST Procedure visit [facility] On [address] [phone] [facility] Start: 09-23-2023 End: 09-23-2023 Patient encounter procedure 09/23/2023 11:50 AM EST Office Visit [facility] [address] [place] [phone] Darrell Olsen MD [address] [place] [phone] [facility] Start: 09-02-2023 End: 09-02-2024 XR Lumbar spine Views AP W right bending and W left bending [facility] Work Phone: Comment on above: Expected: 09/02/2023 , Expires: 09/02/2024 Start: 09-02-2023 End: 09-02-2023 Patient encounter procedure 09/02/2023 10:15 AM EST Office Visit [facility] [address] [place] [phone] Darrell Olsen MD [address] [place] [phone] [facility] Start: 1987 Adult BMI Follow Up Plan Adult BMI Follow Up Plan [facility] Start: 1981 Depression Screening Depression Scre [facility] Start: 1969 Screening for malign ant neoplasm of colon [facility] End: 09-01-2024 CT Lumbar spine WO contrast CT lumbar spine without contrast Imaging Routine Spinal stenosis of lumbar region with neurogenic claudication History of lumbar fusion Radiculopathy, lumbar region Lumbar radiculopathy 1 Occurrences starting 09/02/2023 until 09/01/2024 [facility] Comment on above: 1 Occurrences starti ng 09/02/2023 until 09/01/2024 End: 05-17-2026 MR Cervical spine WO contrast MR cervical spine without contrast Imaging Routine Cervical disc displacement 1 Occurrences starting 05/17/2025 until 05/17/2026 [facility] Work Phone: Comment on above: 1 Occurrences starti ng 05/17/2025 until 05/17/2026 End: 01-18-2026 MR Thoracic spine WO contrast MR thoracic spine without contrast Imaging Routine Disc displacement, thoracic 1 Occurrences starting 01/18/2025 until 01/18/2026 [facility] Work Phone: Comment on above: 1 Occurrences starti ng 01/18/2025 until 01/18/2026 Patient Education Spinal Stenosi s (DC) Spinal Fusion (DC) [facility] Work Phone: Patient referral [facility] Work Phone: End: 04-24-2026 XR Cervical spine 4 or 5 Views X-ray spine cervical 4 or 5 views Imaging Routine Cervical spondylosis without myelopathy 1 Occurrences starting 04/24/2025 until 04/24/2026 [facility] Work Phone: Comment on above: 1 Occurrences starti ng 04/24/2025 until 04/24/2026 XR Cervical spine 4 or 5 Views X-ray spine cervical 4 or 5 views Imaging Routine Cervical spondylosis without myelopathy 04/24/2025 10:36 AM EDT [facility] Immunizations Immunization Date Immunization Notes Care Provider [facility] 08-02-2024 influenza virus vaccine, unspecified formulation Kathy Ziegler [facility] 05-19-2023 influenza virus vaccine, unspecified formulation Michel ROBBINS [facility] [place] 04-28-2022 SARS-CoV-2 (COVID-19 ) [id number] Michel ROBBINS [facility] [place] 08-04-2021 SARS-CoV-2 (COVID-19 ) mRNA BNT-162b2 vax Michel ROBBINS [facility] [place] 11-16-2020 SARS-CoV-2 (COVID-19 ) mRNA BNT-162b2 vax Michel ROBBINS [facility] [place] 10-26-2020 SARS-CoV-2 (COVID-19 ) mRNA BNT-162b2 augie ROBBINS [facility] [place] Payers Date Payer Category Payer Medicare [id number] 2023 Medicare [employer] [place] [employer] MEDICARE ADVANTAGE [id number] 2023-Present [phone] [address] [place] [id number] .[id number] 2023 Medicare (Managed Care) [employer] 1.2.840.095277.1.13.693.2 .[id number] 2023 Medicare HMO [facility] 1.2.840.449499.1.13.424.2 .7.9.669762.120.315 2023 Unknown [employer] P LANS [employer] MEDICARE ADVANTAGE [id number] 2023-Present [phone] [address] [place] [id number] 1.2.840.363035.1.13.424.2 .7.3.565045.315 2023 Medicare [id number] 2023 Self-pay [id number] 1970 Unknown [id number] 2.16.840.1.864792.3.579.2 .593 1969 Unknown [id number] 2.16.840.1.855940.3.579.2 .593 1969 Unknown [id number] 2.16.840.1.798349.3.579.2 .593 1969 Unknown [id number] 2.16.840.1.963329.3.579.2 .593 1969 Unknown [id number] 2.16.840.1.136124.3.579.2 .128 1969 Unknown [id number] 2.16.840.1.535865.3.579.2 .1285 1969 Unknown [id number] 2.16.840.1.865444.3.579.2 .128 1969 Unknown [id number] 2.16.840.1.063606.3.579.2 .1285 1969 Unknown [id number] 2.16.840.1.085191.3.579.2 .1285 1969 Unknown [id number] 2.16.840.1.629337.3.579.2 .128 1969 Unknown [id number] 2.16.840.1.658094.3.579.2 .128 1969 Unknown [id number] 2.16.840.1.567542.3.579.2 .1285 1969 Unknown [id number] 2.16.840.1.863840.3.579.2 .1285 1969 Unknown [id number] 2.16.840.1.555208.3.579.2 .1286 1969 Unknown [id number] 2.16.840.1.861924.3.579.2 .1286 1969 Unknown [id number] 2.16.840.1.620613.3.579.2 .1286 1969 Unknown [id number] 2.16.840.1.307186.3.579.2 .727 1969 Unknown [id number] 2.16.840.1.248681.3.579.2 .727 1969 Unknown [id number] 2.16.840.1.971675.3.579.2 .727 1969 Unknown [id number] 2.16.840.1.352940.3.579.2 .1259 1969 Unknown [id number] 2.16.840.1.556896.3.579.2 .1259 1969 Unknown [id number] 2.16.840.1.026425.3.579.2 .1259 1969 Unknown [id number] 2.16.840.1.815489.3.579.2 .1259 1969 Unknown [id number] 2.16.840.1.468728.3.579.2 .1259 1969 Unknown [id number] 2.16.840.1.031921.3.579.2 .1286 1969 Unknown [id number] 2.16.840.1.592354.3.579.2 .1286 1969 Unknown [id number] 2.16.840.1.283753.3.579.2 .1286 1969 Unknown [id number] 2.16.840.1.040107.3.579.2 .1285 1969 Unknown [id number] 2.16.840.1.815725.3.579.2 .1286 1969 Unknown [id number] 2.16.840.1.298320.3.579.2 .1286 1969 Unknown [id number] 2.16.840.1.106519.3.579.2 .128 1969 Unknown [id number] 2.16.840.1.447559.3.579.2 .1285 1969 Unknown [id number] 2.16.840.1.269738.3.579.2 .128 1969 Unknown [id number] 2.16.840.1.536082.3.579.2 .128 1969 Unknown [id number] 2.16.840.1.815273.3.579.2 .1285 1969 Unknown [id number] 2.16.840.1.603278.3.579.2 .1285 1969 Unknown [id number] 2.16.840.1.464272.3.579.2 .1285 1969 Unknown [id number] 2.16.840.1.255762.3.579.2 .128 1969 Unknown [id number] 2.16.840.1.855355.3.579.2 .1285 1969 Unknown [id number] 2.16.840.1.623568.3.579.2 .1285 1969 Unknown [id number] 2.16.840.1.240495.3.579.2 .1285 1969 Unknown [id number] 2.16.840.1.063723.3.579.2 .128 1969 Unknown [id number] 2.16.840.1.102931.3.579.2 .1285 1969 Unknown [id number] 2.16.840.1.926973.3.579.2 .1285 1969 Unknown [id number] 2.16.840.1.249809.3.579.2 .128 1959 Unknown [id number] Private Health Insurance [id number] 2.16.840.1.090580.19 Unknown [id number] 2..840.1.589732.3.579.2 .531 Unknown [id number] 2..840.1.596354.3.579.2 .531 Unknown [id number] 2.16.840.1.067508.3.579.2 .531 Social History Date Type Detail Facility Start: 09-26-2020 End: 10-25-2023 Sex Assigned At [facility] Start: 05-29-2020 End: 10-08-2023 Tobacco smoking status WIIS Never smoked tobacco (finding) [facility] Start: 1970 Sex Assigned At Male F [facility] Tobacco smoking status Never Gener [facility] Start: 06-04-2022 End: 10-08-2023 Tobacco use and exposure Former smokeless tobacco user [facility] [employer] [facility] End: 08-16-1996 History of tobacco use Chews Tobacco [facility] [employer] [facility] Start: 06-27-2024 End: 05-17-2025 Alcoholic beverage intake [facility] Start: 09-26-2020 End: 10-25-2023 History of Social function [facility] Has the electric, Flat.to, oil, or water company threatened to shut off services in your home in past 12Mo No [facility] Start: 01-24-2018 Alcohol Comment stopped 18 months ag o [facility] Start: 1970 Sex assigned at Not on file P [facility] Start: 03-21-2015 Sex Male (finding) [facility] [employer] [facility] Medical Equipment Procedure Code Equipment Code Equipment Origin al Text Equipment Identifier Dates Fusion, spine, lumbar, XLIF CANCELLOUS 7.5 CRUSHED FDA Start: 05-29-2020 Fusion, spine, lumbar, XLIF Bone-screw internal spinal fixation system, non-sterile [id number] FDA Start: 05-29-2020 Fusion, spine, lumbar, XLIF CANCELLOUS COARSE 7.5CC FDA Start: 05-29-2020 Fusion, spine, lumbar, XLIF Orthopaedic bone screw, non-bioabsorbable, non-sterile [id number] FDA Start: 05-29-2020 Fusion, spine, lumbar, XLIF Orthopaedic bone screw, non-bioabsorbable, non-sterile [id number] FDA Start: 05-29-2020 Fusion, spine, lumbar, XLIF STRATOFUSE DBM 10CC FDA Start: 05-29-2020 Fusion, spine, lumbar, XLIF Bone-screw internal spinal fixation system, non-sterile [id number] FDA Start: 05-29-2020 Fusion, spine, lumbar, XLIF Bone-screw internal spinal fixation system, non-sterile [id number] FDA Start: 05-29-2020 Fusion, spine, lumbar, XLIF STRATOFUSE DBM 5CC FDA Start: 05-29-2020 Fusion, spine, lumbar, XLIF Spinal fusion graft kit [id number] FDA Start: 05-29-2020 Fusion, spine, lumbar, XLIF Metallic spinal fusion cage, non-sterile [id number] FDA Start: 05-29-2020 Fusion, spine, lumbar, XLIF Metallic spinal fusion cage, non-sterile [id number] FDA Start: 05-29-2020 Fusion, spine, lumbar, XLIF Polymeric spinal interbody fusion cage [id number] FDA Start: 05-29-2020 Fusion, spine, lumbar, XLIF [...] 5CC FDA Start: 05-29-2020 Kt Repr Shldr Ea=Richie - [id number] - [id number] Start: 06-07-2018 Goals Date Patient Goal Desired Activity /State Personal health goal Comment on above: Formatting of this n ote might be different from the original. Evaluation of progress towards goal: Patient will discharge to inpatient rehab versus Home health care. - Ykaov Mayr RN 10/25/23 12:13 PM Functional Status Date Assessment Result Facility 11-16-2023 Functional Status N/A General Leyva chiquita Simons 10-27-2023 Functional status Patient Not at Baseline [facility] Work Phone: Mental Status Date Assessment Result Facility 10-27-2023 Cognitive function Cognitive Sta tus Patient Not at Baseline [facility] Work Phone: Clinical Notes 06-07-2018 to 05-17-2025 CHIQUITA Wong - 05/17/2025 12:15 PM EDIsaura Garcia, PT - 05/14/2025 9:00 AM EDIsaura Garcia, PT - 05/10/2025 10:30 AM EDIsaura Garcia, PT - 05/07/2025 10:00 AM EDT Note Date & Type Note Facility 05-17-2025 History of Presen t illness Narrative [facility] [address] [place] [address] Patient: Celestino Ziegler Sex: male : 1970 Age: 54 y.o. PCP: DONNA HERRERA MD 05/17/2025 Celestino Ziegler is here for a(n) follow up for increased neck pain, numbness and tingling in arms down to hands. PT/HEP 5 sessions at [facility] in [place] with no relief for neck. Cervical x rays to be reviewed. Chief Complaint Patient presents with Back Pain Neck Pain HPI: April 2025 PT/HEP 5 sessions at [facility] in [place] with no relief for neck. October 2023 Patient had laminectomy with Dr [...] 90% relief of leg pain that continues. 12/15/24 L12 NR with 10% relief for one day 01/19/2025 Left Sacroiliac Radio Frequency Ablation with 95% relief continuing today.. Back Pain This is a chronic problem. The current episode started more than 1 year ago (left lateral thoracic pain 12/2024 new). The problem occurs constantly. The problem has been gradually worsening since onset. The pain is present in the lumbar spine. The quality of the pain is described as aching and shooting. Radiates to: bilateral hips, pain shoots down right poterior leg. The pain is at a severity of 6/10. The pain is severe. The pain is The same all the time (mornings are the worst). Exacerbated by: any movement. Stiffness is present All day. Associated symptoms include leg pain (BUE and BLE (right greater than left) posterior), numbness (BUE and BLE (right greater than left) posterior), tingling (BUE and BLE (right greater than left) posterior) and weakness (BUE and BLE (right greater than left) posterior). Pertinent negatives include no abdominal pain, bladder incontinence, bowel incontinence, chest pain or fever. Risk factors include poor posture and obesity. Treatments tried: DR cid/HEP, NSAID (naproxen, diclofenac), Gabapentin,rest, ice/heat,mild relief prednisone, flexeril min to mod. Neck Pain This is a new problem. The current episode started more than 1 month ago. The problem occurs constantly. The problem has been gradually worsening. The pain is associated with nothing. The pain is present in the right side, left side and midline (L>R, pain and tingling down bilateral arms and fingers). The quality of the pain is described as shooting and aching. The pain is at a severity of 8/10 (can get up to 10/10). The pain is moderate (to severe). The symptoms are aggravated by position, twisting and bending (looking up and raising ams). Worse during: when turning head, looking up, or raising arms. Stiffness is present All day. Associated symptoms include leg pain (BUE and BLE (right greater than left) posterior), numbness (BUE and BLE (right greater than left) posterior), tingling (BUE and BLE (right greater than left) posterior) and weakness (BUE and BLE (right greater than left) posterior). Pertinent negatives include no chest pain or fever. He has tried bed rest for the symptoms. The effect of pain on patient's ADLS: Mild Impairment. Past Medical History: Diagnosis Date Alcoholism [...] Jr Christian Estrada DO at [facility] ARTHROSCOPY REPAIR ROTATOR CUFF SHOULDER Left 06/07/2018 Performed by Jr Christian Estrada DO at [facility] ARTHROSCOPY SHOULDER Left 06/07/2018 Performed by Jr Christian Estrada DO at [facility] INJE[facility] BLOCK SACROILIAC JOINT Bilateral 02/04/2024 Performed by Dave Garcia MD at [facility] BLOCK SACROILIAC JOINT Bilateral 06/04/2023 Performed by Dave Garcia MD at [facility] BLOCK SACROILIAC JOINT Bilateral 03/19/2023 Performed by Dave Garcia MD at [facility] BLOCK SACROILIAC JOINT Bilateral 01/15/2023 Performed by Dave Garcia MD at [facility] BLOCK SACROILIAC JOINT Bilateral 09/04/2022 Performed by Dave Garcia MD at [facility] BLOCK SACROILIAC JOINT Right 05/22/2022 Performed by Dave Garcia MD at [facility] BLOCK SACROILIAC JOINT Bilateral 02/20/2022 Performed by Dave Garcia MD at [facility] BLOCK SACROILIAC JOINT Bilateral 10/20/2021 Performed by Dave Garcia MD at [facility] BLOCK SACROILIAC JOINT Bilateral 12/13/2020 Performed by Dave Garcia MD at [facility] BURSA LARGE JOINT Right hip intra-articular Right 02/21/2021 Performed by Dave Garcia MD at [facility] BURSA LARGE JOINT: right hip Right 03/27/2022 Performed by Dave Garcia MD at [facility] CAUDAL EPIDURAL WITH CATHETER, STEROID N/A 02/23/2020 Performed by Dave Garcia MD at [facility] CAUDAL EPIDURAL WITH CATHETER, STEROID N/A 01/15/2020 Performed by Dave Garcia MD at [facility] CAUDAL EPIDURAL WITH CATHETER, STEROID N/A 06/23/2019 Performed by Dave Garcia MD at [facility] CAUDAL EPIDURAL WITH CATHETER, STEROID N/A 05/05/2019 Performed by Dave Garcia MD at [facility] CAUDAL EPIDURAL WITH CATHETER, STEROID N/A 08/12/2018 Performed by Dave Garcia MD at [facility] CAUDAL EPIDURAL WITH CATHETER, STEROID 1 of 2 N/A 01/28/2018 Performed by Dave Garcia MD at [facility] CAUDAL EPIDURAL WITH CATHETER, STEROID 2 of 2 N/A 02/11/2018 Performed by Dave Garcia MD at [facility] SPINE TRANSFORAMINAL Left L 1,2 Nroot Left 12/15/2024 Performed by Dave Garcia MD at [facility] SPINE TRANSFORAMINAL Left L 1,2 Nroot Left 01/24/2021 Performed by Dave Garcia MD at [facility] SPINE TRANSFORAMINAL: left L 1,2 nroot Left 04/17/2022 Performed by Dave Garcia MD at [facility] SPINE TRANSFORAMINAL: right L 1,2 Nroot Right 09/15/2024 Performed by Dave Garcia MD at [facility] SPINE TRANSFORAMINAL: right L 1,2 nroot Right 04/16/2023 Performed by Dave Garcia MD at [facility] LAMINECTOMY LUMBAR SINGLE LEVEL / L1-L2 N/A 10/22/2023 Performed by Darrell Olsen MD at [facility] LUMBAR FUSION 2019 L2-S1 RADIOFREQUENCY ABLATION SPINAL Left SI Left 01/19/2025 Performed by Dave Garcia MD at [facility] RADIOFREQUENCY ABLATION SPINAL Right SI Right 05/04/2025 Performed by Dave Garcia MD at [facility] RADIOFREQUENCY ABLATION SPINAL: left SI Left 05/12/2024 Performed by Dave Garcia MD at [facility] RADIOFREQUENCY ABLATION SPINAL: right SI Right 04/28/2024 Performed by Dave Garcia MD at [facility] REFRACTIVE SURGERY Bilateral No Known Allergies Family [...] on file Food Insecurity: No Food Insecurity (05/17/2025) Hunger Screening Food Insecurity - Worry: Never [...] and fever. HENT: Negative. Eyes: Negative. Respiratory: Negative. Negative for cough and shortness of breath. Cardiovascular: Negative. Negative for chest pain. Gastrointestinal: Negative. Negative for abdominal pain and bowel incontinence. Endocrine: Negative. Genitourinary: Negative. Negative for bladder incontinence. Musculoskeletal: Positive for back pain, gait problem (no falls but complaints of unsteady gait) and neck pain. Skin: Negative. Negative for rash and wound. Allergic/Immunologic: Negative. Neurological: Positive for tingling (BUE and BLE (right greater than left) posterior), weakness (BUE and BLE (right greater than left) posterior) and numbness (BUE and BLE (right greater than left) posterior). Hematological: Negative. Does not bruise/bleed easily. Psychiatric/Behavioral: Negative. Negative for self-injury and suicidal ideas. Vital Signs: BP 127/77 Pulse 100 Resp 18 Ht 172.7 cm (5' 8 ) Wt 91.2 kg (201 lb) SpO2 98% BMI 30.56 kg/m Physical Exam: GENERAL - Healthy patient [...] obvious deficits in memory, reasoning, or intellect. Cervical: SKIN - No rashes or bruising in the area of the patient s pain. LYMPH NODES - demonstrate no obvious enlargement. EXTREMITIES - Upper extremities are warm, with minimal edema and palpable pulses Tenderness to palpation noted in the cervical spine and paraspinal musculature. Pain is elicited with flexion, extension, and lateral rotation of the cervical spine. Range of motion is diminished with these motions due to pain. Facet palpation is noted to be somewhat tender but not concordant with the patient s normal pain complaints. STRENGTH - noted to be 5 out of 5 all muscle groups bilateral upper extremities including muscles involving shoulder flexion and abduction, elbow flexion and extension, as well as wrist flexion and extension and intrinsic muscles of the hand. No notable atrophy, fasciculations or spasm. SENSORY - No notable sensory deficits in the bilateral upper extremities to touch or pinprick in all dermatomal distributions. Spurlings sign is Positive Assessment/Treatment Plan: Celestino was seen today for back pain and neck pain. Diagnoses and all orders for this visit: Cervical disc displacement - MR cervical spine without contrast; Future Lumbosacral spondylosis without myelopathy - gabapentin (NEURONTIN) 800 mg tablet; Take 1 tablet (800 mg total) by mouth 3 (three) times a day. Refill Gabapentin 800 mg TID and continue Diclofenac 75 mg BID Cervical spine MRI - It is felt that additional diagnostic testing is necessary to further evaluate the patients current pain pathology. For this reason, we will order additional imaging noted above. It is hopeful that this study will identify a significant pain generator that will be amenable to therapy. It is felt that this modality is necessary due to the severity and chronicity of symptoms and physical exam findings combined with the lack of recent imaging of the area. An MRI is specifically felt to be necessary due to the physical exam findings noted above and the patient s description of refractory pain in a neuropathic distribution that is not relieved by change in body position and interferes with the patient s activities of daily living Follow up after MRI The medications I have prescribed have been [...] but not opted for at this time: Cervical epidural steroid injection. Patient would like to proceed with the current outlined treatment plan before moving forward with any other options. The spine model was demonstrated and Xray was reviewed and used to explain the condition. OARRS: Reviewed. Scribe Statement: Kathy Carr CNA, scribed for and in the presence of CHIQUITA WONG who performed the above service. Kathy Ziegler CNA 05/17/25 1310 Kathy Ziegler CNA 05/17/25 1313 CHIQUITA Wong 05/17/25 1414 documented in this encounter Basha 05-14-2025 History of Presen t illness Narrative Images from the original note were not included. Physical Therapy Treatment Visit / DISCHARGE Patient Name: Celestino Ziegler Today's Date: 05/14/2025 Encounter Diagnoses Name Primary? Spondylosis without myelopathy or radiculopathy, cervical region Yes Visit number: 5 Timed Code Treatment Minutes: 12 minutes Total Treatment Time: 12 minutes Time In: 0900 Time Out: 931 History: Pt states at beginning of February he woke up with a very stiff neck. States he had recently purchased a new camper and had issues the first time sleeping in it. Had tingling going down arms at this time. The other day, was putting up a light, had both arms over head and when he looked up had a shock type feeling in bilateral arms and neck. Is currently being seen by pain management but states that is for his back but states they did order neck x-rays. Also getting a lot of cracking in his neck. Precautions: [place] Subjective: Pt states he feels tingling in bilateral upper extremities continues to worsen. Feels like sx's are getting more intense and frequent. Pain: /10 Objective: PT Evaluation (04/27/2025) CERVICAL AROM: 65 degrees flexion, 44 degrees extension, 35 degrees right SB, 30 degrees left SB, 52 degrees right rotation, 54 degrees left rotation Joint play: hypermobility mid cervical region, hypomobility right lower cervical MMT: bilateral shoulders 4/5 Palpation: moderate tenderness bilateral UT and LS Special Test: negative cervical compression and bilateral Spurling's Neurological: Myotomes: intact Dermatomes: intact Treatment: Education: HEP education with demonstration, Educated on Eval Findings and POC Manual Therapy: () Delivered Manual cervical distraction/Occipital release in supine; STM to cervical paraspinals, ant structure, and UT regions. Passive ROM, Joint mobilization, Soft Tissue Mobilization, Myofascial Release, Muscle Energy Technique, Neural Mobilization, Myofascial Cupping, Dry Needling, IASTM, and Scar mobilization as needed. Therapeutic Exercise: (12 minutes) Strength, Endurance, Flexibility, ROM, HEP, Neural Mobilization, Power, and Core Stability as needed. Reviewed home program with good pt understanding. Goals addressed for discharge. Therapeutic Activity: Exercises to improve dynamic activities, functional tasks, functional mobility to return to prior activity level as needed. Neuromuscular re-education: Balance Training, Muscle Facilitation, Dynamic Stability, Core Stabilization, and Blood Flow Restriction Training (BFRT) as needed. Modalities: Heat, Ice, Electrical Stimulation, Ultrasound, Cervical Mechanical Traction, Lumbar Mechanical Traction, Iontophoresis, and Fluidotherapy as needed. HP to cervical region in supine X 10 minutes at start of session. Assessment: Pt has completed 5 PT sessions for complaints of neck and bilateral UE pain. Neck Index: 26/50. CROM is currently 35 degrees flexion, 50 degrees extension, 28 degrees right SB, 30 degrees left SB, 52 degrees right rotation, 54 degrees left rotation. Despite improvements with CROM, pt continues to report bilateral UE tingling. Pt also voicing increase intensity and frequency of UE sx's. We will now discharge PT due to worsening of sx's. Believe further imaging and/or intervention is appropriate at this time. Outcome Measure: Neck Disability Index (NDI): Rehab Diagnosis: neck pain, bilateral UE pain Short Term Goal: To be met in 2 weeks Goal 1: Pt to be instructed in home exercise program. Stencil Inspector Goals: To be met in 10 weeks Goal 1: Pt to report independence and compliance with home program. Goal 2: Pt to achieve 60 degrees of bilateral cervical rotation to assist with driving and ADL's. Goal 3: Pt to report pain no greater than 2/10 in cervical region with functional mobility and ADL's. Goal 4: Pt to score no greater than 6/50 on NDI indicating improved QOL. Discharge PT documented in this encounter [facility] 05-10-2025 History of Presen t illness Narrative Images from the original note were not included. Physical Therapy Treatment Visit Patient Name: Celestino Ziegler Today's Date: 05/10/2025 Encounter Diagnoses Name Primary? Spondylosis without myelopathy or radiculopathy, cervical region Yes Visit number: 4 Timed Code Treatment Minutes: 24 minutes Total Treatment Time: 34 minutes Time In: 1030 Time Out: 1110 History: Pt states at beginning of February he woke up with a very stiff neck. States he had recently purchased a new camper and had issues the first time sleeping in it. Had tingling going down arms at this time. The other day, was putting up a light, had both arms over head and when he looked up had a shock type feeling in bilateral arms and neck. Is currently being seen by pain management but states that is for his back but states they did order neck x-rays. Also getting a lot of cracking in his neck. Precautions: [place] Subjective: Neck has been pretty sore since last PT session. Has noticed more tingling in bilateral UE. Called pain management and will see them again in a couple of weeks. Pain: 01/23 Objective: PT Evaluation (04/27/2025) CERVICAL AROM: 65 degrees flexion, 44 degrees extension, 35 degrees right SB, 30 degrees left SB, 52 degrees right rotation, 54 degrees left rotation Joint play: hypermobility mid cervical region, hypomobility right lower cervical MMT: bilateral shoulders 4/5 Palpation: moderate tenderness bilateral UT and LS Special Test: negative cervical compression and bilateral Spurling's Neurological: Myotomes: intact Dermatomes: intact Treatment: Education: HEP education with demonstration, Educated on Eval Findings and POC Manual Therapy: (24 minutes) Delivered Manual cervical distraction/Occipital release in supine; STM to cervical paraspinals, ant structure, and UT regions. Passive ROM, Joint mobilization, Soft Tissue Mobilization, Myofascial Release, Muscle Energy Technique, Neural Mobilization, Myofascial Cupping, Dry Needling, IASTM, and Scar mobilization as needed. Therapeutic Exercise: (held this date) Strength, Endurance, Flexibility, ROM, HEP, Neural Mobilization, Power, and Core Stability as needed. Pt performed and instructed in cervical stabilization and scapular support exercises. Therapeutic Activity: Exercises to improve dynamic activities, functional tasks, functional mobility to return to prior activity level as needed. Neuromuscular re-education: Balance Training, Muscle Facilitation, Dynamic Stability, Core Stabilization, and Blood Flow Restriction Training (BFRT) as needed. Modalities: Heat, Ice, Electrical Stimulation, Ultrasound, Cervical Mechanical Traction, Lumbar Mechanical Traction, Iontophoresis, and Fluidotherapy as needed. HP to cervical region in supine X PRN minutes Assessment: Pt has completed 4 PT sessions for complaints of neck and bilateral UE pain. Held exercises and progression this date due to pt complaints of increase pain and tingling in bilateral UE. Pt tolerates manual therapy well. Will continue to progress as able. Outcome Measure: Neck Disability Index (NDI): 20/50 Rehab Diagnosis: neck pain, bilateral UE pain Short Term Goal: To be met in 2 weeks Goal 1: Pt to be instructed in home exercise program. Care Home Goals: To be met in 10 weeks Goal 1: Pt to report independence and compliance with home program. Goal 2: Pt to achieve 60 degrees of bilateral cervical rotation to assist with driving and ADL's. Goal 3: Pt to report pain no greater than 2/10 in cervical region with functional mobility and ADL's. Goal 4: Pt to score no greater than 6/50 on NDI indicating improved QOL. Pt will benefit from skilled PT for 2x/week from 04/27/2025 to 07/20/2025 to address the above impairments. I hereby deem this POC medically necessary. Please sign below. Date: documented in this encounter [facility] 05-09-2025 Miscellaneous Notes Patient called office today and left telephone message requesting a call from nurse. Celestino reports that something is going on with his neck. He reports tingling and shocks into his shoulders, down his arms and back. He has gone to PT x 2. He states after the PT evaluation he felt good for that day. He states after the 2nd visit he hand shocks through his neck when he stood up. His symptoms are pretty steady but worse with cervical flexion and extension. The shocks and tingling travel down BUE into fingers. He states symptoms are not any better and may even be slightly worse. He is scheduled to go to PT tomorrow at 10 AM. When is is f/u? Ok to continue with PT as long as he makes the therapist aware of what's happening. His follow up is 06/07/2025. Can move up f/u a couple weeks if he would like Call placed to patient to offer move up appt. No answer. Moved Pts appt up to this , 05/17 at 1215. documented in this encounter [facility] 05-09-2025 Telephone encounter Note Patient called office today and left telephone message requesting a call from nurse. Celestino reports that something is going on with his neck. He reports tingling and shocks into his shoulders, down his arms and back. He has gone to PT x 2. He states after the PT evaluation he felt good for that day. He states after the 2nd visit he hand shocks through his neck when he stood up. His symptoms are pretty steady but worse with cervical flexion and extension. The shocks and tingling travel down BUE into fingers. He states symptoms are not any better and may even be slightly worse. He is scheduled to go to PT tomorrow at 10 AM. [facility] 05-09-2025 Telephone encounter Note When is is f/u? Ok to continue with PT as long as he makes the therapist aware of what's happening. [facility] 05-09-2025 Telephone encounter Note His follow up is 06/07/2025. [facility] 05-09-2025 Telephone encounter Note Can move up f/u a couple weeks if he would like [facility] 05-09-2025 Telephone encounter Note Call placed to patient to offer move up appt. No answer. [facility] 05-09-2025 Telephone encounter Note Moved Pts appt up to this , 05/17 at 1215. [facility] 05-07-2025 History of Presen t illness Narrative Images from the original note were not included. Physical Therapy Treatment Visit Patient Name: Celestino Ziegler Today's Date: 05/07/2025 Encounter Diagnoses Name Primary? Spondylosis without myelopathy or radiculopathy, cervical region Yes Visit number: 3 Timed Code Treatment Minutes: 24 minutes Total Treatment Time: 34 minutes Time In: 0800 Time Out: 0835 History: Pt states at beginning of February he woke up with a very stiff neck. States he had recently purchased a new camper and had issues the first time sleeping in it. Had tingling going down arms at this time. The other day, was putting up a light, had both arms over head and when he looked up had a shock type feeling in bilateral arms and neck. Is currently being seen by pain management but states that is for his back but states they did order neck x-rays. Also getting a lot of cracking in his neck. Precautions: [place] Subjective: Neck felt pretty good following last session. Doing exercises at home. Pain: 6/10 Objective: PT Evaluation (04/27/2025) CERVICAL AROM: 65 degrees flexion, 44 degrees extension, 35 degrees right SB, 30 degrees left SB, 52 degrees right rotation, 54 degrees left rotation Joint play: hypermobility mid cervical region, hypomobility right lower cervical MMT: bilateral shoulders 4/5 Palpation: moderate tenderness bilateral UT and LS Special Test: negative cervical compression and bilateral Spurling's Neurological: Myotomes: intact Dermatomes: intact Treatment: Education: HEP education with demonstration, Educated on Eval Findings and POC Manual Therapy: (12 minutes) Delivered Manual cervical distraction/Occipital release in supine; STM to cervical paraspinals, ant structure, and UT regions. Passive ROM, Joint mobilization, Soft Tissue Mobilization, Myofascial Release, Muscle Energy Technique, Neural Mobilization, Myofascial Cupping, Dry Needling, IASTM, and Scar mobilization as needed. Therapeutic Exercise: (12 minutes) Strength, Endurance, Flexibility, ROM, HEP, Neural Mobilization, Power, and Core Stability as needed. Pt performed and instructed in cervical stabilization and scapular support exercises. Therapeutic Activity: Exercises to improve dynamic activities, functional tasks, functional mobility to return to prior activity level as needed. Neuromuscular re-education: Balance Training, Muscle Facilitation, Dynamic Stability, Core Stabilization, and Blood Flow Restriction Training (BFRT) as needed. Modalities: Heat, Ice, Electrical Stimulation, Ultrasound, Cervical Mechanical Traction, Lumbar Mechanical Traction, Iontophoresis, and Fluidotherapy as needed. HP to cervical region in supine X PRN minutes Assessment: Pt is 54 y/o male with complaints of neck and bilateral UE pain. Progressed stabilization exercises this date with good anna. Mild cues for proper form with exercises. Will continue to progress as pt tolerates. Outcome Measure: Neck Disability Index (NDI): 20/50 Rehab Diagnosis: neck pain, bilateral UE pain Short Term Goal: To be met in 2 weeks Goal 1: Pt to be instructed in home exercise program. Stencil Inspector Goals: To be met in 10 weeks Goal 1: Pt to report independence and compliance with home program. Goal 2: Pt to achieve 60 degrees of bilateral cervical rotation to assist with driving and ADL's. Goal 3: Pt to report pain no greater than 2/10 in cervical region with functional mobility and ADL's. Goal 4: Pt to score no greater than 6/50 on NDI indicating improved QOL. Pt will benefit from skilled PT for 2x/week from 04/27/2025 to 07/20/2025 to address the above impairments. I hereby deem this POC medically necessary. Please sign below. Date: documented in this encounter [facility] 04-27-2025 History of Presen t illness Narrative Images from the original note were not included. Physical Therapy Evaluation Visit Patient Name: Celestino Ziegler Today's Date: 04/27/2025 Encounter Diagnoses Name Primary? Spondylosis without myelopathy or radiculopathy, cervical region Yes Visit number: 1 Timed Code Treatment Minutes: 45 minutes Total Treatment Time: 55 minutes Time In: 1030 Time Out: 1126 History: Pt states at beginning of February he woke up with a very stiff neck. States he had recently purchased a new camper and had issues the first time sleeping in it. Had tingling going down arms at this time. The other day, was putting up a light, had both arms over head and when he looked up had a shock type feeling in bilateral arms and neck. Is currently being seen by pain management but states that is for his back but states they did order neck x-rays. Also getting a lot of cracking in his neck. Precautions: [place] Subjective: neck and bilateral UE's Pain: 6/10 Objective: PT Evaluation (04/27/2025) CERVICAL AROM: 65 degrees flexion, 44 degrees extension, 35 degrees right SB, 30 degrees left SB, 52 degrees right rotation, 54 degrees left rotation Joint play: hypermobility mid cervical region, hypomobility right lower cervical MMT: bilateral shoulders 4/5 Palpation: moderate tenderness bilateral UT and LS Special Test: negative cervical compression and bilateral Spurling's Neurological: Myotomes: intact Dermatomes: intact Treatment: Education: HEP education with demonstration, Educated on Eval Findings and POC Manual Therapy: (13 minutes) Passive ROM, Joint mobilization, Soft Tissue Mobilization, Myofascial Release, Muscle Energy Technique, Neural Mobilization, Myofascial Cupping, Dry Needling, IASTM, and Scar mobilization as needed. Therapeutic Exercise: (11 minutes) Strength, Endurance, Flexibility, ROM, HEP, Neural Mobilization, Power, and Core Stability as needed. Pt performed and instructed in home program this date; written instructions and pictures issued with good pt understanding. Therapeutic Activity: Exercises to improve dynamic activities, functional tasks, functional mobility to return to prior activity level as needed. Neuromuscular re-education: Balance Training, Muscle Facilitation, Dynamic Stability, Core Stabilization, and Blood Flow Restriction Training (BFRT) as needed. Modalities: Heat, Ice, Electrical Stimulation, Ultrasound, Cervical Mechanical Traction, Lumbar Mechanical Traction, Iontophoresis, and Fluidotherapy as needed. HP to cervical region in supine X 10 minutes Assessment: Pt is 54 y/o male with complaints of neck and bilateral UE pain. Pt with limited CROM. Hypermobility with crepitus noted mid cervical region . Negative cervical compression and bilateral Spurling's. Pt instructed in home program and will benefit from further PT. Outcome Measure: Neck Disability Index (NDI): 20/50 Rehab Diagnosis: neck pain, bilateral UE pain Short Term Goal: To be met in 2 weeks Goal 1: Pt to be instructed in home exercise program. Stencil Inspector Goals: To be met in 10 weeks Goal 1: Pt to report independence and compliance with home program. Goal 2: Pt to achieve 60 degrees of bilateral cervical rotation to assist with driving and ADL's. Goal 3: Pt to report pain no greater than 2/10 in cervical region with functional mobility and ADL's. Goal 4: Pt to score no greater than 6/50 on NDI indicating improved QOL. Pt will benefit from skilled PT for 2x/week from 04/27/2025 to 07/20/2025 to address the above impairments. I hereby deem this POC medically necessary. Please sign below. Date: documented in this encounter [facility] 04-24-2025 History of Presen t illness Narrative [facility] [address] [address] Patient: Celestino Ziegler Sex: male : 1970 Age: 54 y.o. PCP: DONNA HERRERA MD 04/24/2025 Celestino Ziegler is here for a(n) follow up for increased back pain and new onset neck pain. Patient reports pain to the right side of his back with it shooting down the right leg. Patient states he gets jabbing and stabbing pains to the right side. Patient states he walked a lot over the weekend which made pain unbearable. It has been getting better day by day. PCP prescribed prednisone, percocet, and flexeril which seems to be helping. Has a newer complaint of neck pain that has been going on for over a month. Reports pain to neck and tingling sensation down bilateral arms and fingers when he looks up or raises his arms. Chief Complaint Patient presents with Back Pain [...] 90% relief of leg pain that continues. 12/15/24 L12 NR with 10% relief for one day 01/19/2025 Left Sacroiliac Radio Frequency Ablation with 95% relief continuing today.. Back Pain This is a new (01/13/2025) problem. The current episode started in the past 7 days (left lateral thoracic pain). The problem occurs constantly. The problem has been gradually worsening since onset. The pain is present in the lumbar spine (right side). The quality of the pain is described as aching and shooting. Radiates to: bilateral hips, pain shoots down right anterior leg. Pain scale: 9.5/10. The pain is severe. The pain is The same all the time (mornings are the worst). Exacerbated by: any movement. Stiffness is present All day. Associated symptoms include leg pain (RLE), numbness (right hip), tingling (right hip, neck and down bilateral arms) and weakness (RLE). Pertinent negatives include no abdominal pain, bladder incontinence, bowel incontinence, chest pain or fever. Risk factors include poor posture and obesity. Treatments tried: DR guided/HEP, NSAID (naproxen, diclofenac), Gabapentin,rest, ice/heat,mild relief prednisone, flexeril min to mod. Neck Pain This is a new problem. The current episode started more than 1 month ago. The problem occurs constantly. The problem has been gradually worsening. The pain is associated with nothing. The pain is present in the right side, left side and midline (L>R, pain and tingling down bilateral arms and fingers). The quality of the pain is described as shooting and aching. The pain is at a severity of 4/10 (can get up to 10/10). The pain is moderate (to severe). The symptoms are aggravated by position, twisting and bending (looking up and raising ams). Worse during: when turning head, looking up, or raising arms. Stiffness is present All day. Associated symptoms include leg pain (RLE), numbness (right hip), tingling (right hip, neck and down bilateral arms) and weakness (RLE). Pertinent negatives include no chest pain or fever. He has tried bed rest for the symptoms. The effect of pain on patient's ADLS: Moderate Impairment. Past Medical History: Diagnosis Date Alcoholism ([facility]) Anemia Asthma Back pain Chronic pain [...] Jr Christian Estrada DO at [facility] ARTHROSCOPY REPAIR ROTATOR CUFF SHOULDER Left 06/07/2018 Performed by Jr Christian Estrada DO at [facility] ARTHROSCOPY SHOULDER Left 06/07/2018 Performed by Jr Christian Estrada DO at [facility] INJECTION BLOCK SACROILIAC JOINT Bilateral 02/04/2024 Performed by Dave Garcia MD at [facility] INJECTION BLOCK SACROILIAC JOINT Bilateral 06/04/2023 Performed by Dave Garcia MD at [facility] INJECTION BLOCK SACROILIAC JOINT Bilateral 03/19/2023 Performed by Dave Garcia MD at [facility] INJECTION BLOCK SACROILIAC JOINT Bilateral 01/15/2023 Performed by Dave Garcia MD at [facility] INJECTION BLOCK SACROILIAC JOINT Bilateral 09/04/2022 Performed by Dave Garcia MD at [facility] INJECTION BLOCK SACROILIAC JOINT Right 05/22/2022 Performed by Dave Garcia MD at [facility] INJECTION BLOCK SACROILIAC JOINT Bilateral 02/20/2022 Performed by Dave Garcia MD at [facility] INJECTION BLOCK SACROILIAC JOINT Bilateral 10/20/2021 Performed by Dave Garcia MD at [facility] INJECTION BLOCK SACROILIAC JOINT Bilateral 12/13/2020 Performed by Dave Garcia MD at [facility] INJECTION BURSA LARGE JOINT Right hip intra-articular Right 02/21/2021 Performed by Dave Garcia MD at [facility] INJECTION BURSA LARGE JOINT: right hip Right 03/27/2022 Performed by Dave Garcia MD at [facility] INJECTION CAUDAL EPIDURAL WITH CATHETER, STEROID N/A 02/23/2020 Performed by Dave Garcia MD at [facility] INJECTION CAUDAL EPIDURAL WITH CATHETER, STEROID N/A 01/15/2020 Performed by Dave Garcia MD at [facility] INJECTION CAUDAL EPIDURAL WITH CATHETER, STEROID N/A 06/23/2019 Performed by Dave Garcia MD at [facility] INJECTION CAUDAL EPIDURAL WITH CATHETER, STEROID N/A 05/05/2019 Performed by Dave Garcia MD at [facility] INJECTION CAUDAL EPIDURAL WITH CATHETER, STEROID N/A 08/12/2018 Performed by Dave Garcia MD at [facility] INJECTION CAUDAL EPIDURAL WITH CATHETER, STEROID 1 of 2 N/A 01/28/2018 Performed by Dave Garcia MD at [facility] CAUDAL EPIDURAL WITH CATHETER, STEROID 2 of 2 N/A 02/11/2018 Performed by Dave Garcia MD at [facility] SPINE TRANSFORAMINAL Left L 1,2 Nroot Left 12/15/2024 Performed by Dave Garcia MD at [facility] INJECTION SPINE TRANSFORAMINAL Left L 1,2 Nroot Left 01/24/2021 Performed by Dave Garcia MD at [facility] SPINE TRANSFORAMINAL: left L 1,2 nroot Left 04/17/2022 Performed by Dave Garcia MD at [facility] SPINE TRANSFORAMINAL: right L 1,2 Nroot Right 09/15/2024 Performed by Dave Garcia MD at [facility] SPINE TRANSFORAMINAL: right L 1,2 nroot Right 04/16/2023 Performed by Dave Garcia MD at [facility] LAMINECTOMY LUMBAR SINGLE LEVEL / L1-L2 N/A 10/22/2023 Performed by Darrell Olsen MD at [facility] LUMBAR FUSION 2020 L2-S1 RADIOFREQUENCY ABLATION SPINAL Left SI Left 01/19/2025 Performed by Dave Garcia MD at [facility] RADIOFREQUENCY ABLATION SPINAL: left SI Left 05/12/2024 Performed by Dave Garcia MD at [facility] RADIOFREQUENCY ABLATION SPINAL: right SI Right 04/28/2024 Performed by Dave Garcia MD at [facility] REFRACTIVE SURGERY Bilateral No Known Allergies Family [...] on file Food Insecurity: No Food Insecurity (04/24/2025) Hunger Screening Food Insecurity - Worry: Never [...] HENT: Negative. Eyes: Negative. Respiratory: Negative. Cardiovascular: Negative. Negative for chest pain. Gastrointestinal: Negative. Negative for abdominal pain and bowel incontinence. Endocrine: Negative. Genitourinary: Negative. Negative for bladder incontinence. Musculoskeletal: Positive for back pain and neck pain. Skin: Negative. Allergic/Immunologic: Negative. Neurological: Positive for tingling (right hip, neck and down bilateral arms), weakness (RLE) and numbness (right hip). Hematological: Negative. Psychiatric/Behavioral: Negative. Vital Signs: BP 118/80 (BP Site: Right Arm, BP Postition: Sitting) Pulse 94 Resp 18 SpO2 96% Physical Exam: GENERAL - Healthy patient that [...] obvious deficits in memory, reasoning, or intellect. Cervical: SKIN - No rashes or bruising in the area of the patient s pain. LYMPH NODES - demonstrate no obvious enlargement. EXTREMITIES - Upper extremities are warm, with minimal edema and palpable pulses. Tenderness to palpation noted in the cervical spine and paraspinal musculature. Pain is elicited with flexion, extension, and lateral rotation of the cervical spine. Range of motion is diminished with these motions due to pain. Facet palpation is noted to be painful and concordant with the patient s normal pain complaints. STRENGTH - noted to be 5 out of 5 all muscle groups bilateral upper extremities including muscles involving shoulder flexion and abduction, elbow flexion and extension, as well as wrist flexion and extension and intrinsic muscles of the hand. No notable atrophy, fasciculations or spasm. SENSORY - No notable sensory deficits in the bilateral upper extremities to touch or pinprick in all dermatomal distributions. Spurlings sign is negative. Lumbar: SKIN - No rashes or bruising [...] Tenderness to palpation is noted over the Right SacroIliac Joint: Fabere sign (Ilya's Test) is significantly positive, as is compression and distraction of the sacroiliac joints, which is consistent with some of the patient's normal pain. Gait is normal. Assessment/Treatment Plan: Celestino was seen today for back pain. Diagnoses and all orders for this visit: Disorder of sacrum - Case request operating room: RADIOFREQUENCY ABLATION SI JOINT Cervical spondylosis without myelopathy - X-ray spine cervical 4 or 5 views; Future - Ambulatory referral to Physical Therapy; Future Cervical spine xray Imaging/Diagnostic Testing - It is felt that additional diagnostic testing is necessary to further evaluate the patients current pain pathology. For this reason, we will order additional imaging/diagnostic testing noted above. It is hopeful that this study will identify a significant pain generator that will be amenable to therapy. It is felt that this modality is necessary due to the severity and chronicity of symptoms and physical exam findings combined with the lack of recent imaging/diagnostic testing of the area. Cervical spine Physical/Aquatic Therapy - It is felt that the patient will benefit from a course of physical therapy focusing on the above mentioned diagnosis. We will recommend that the physical therapist fully evaluate and treat at their discretion considering the modalities that are most useful for the condition being treated. This may include modalities of comfort including moist heat, ultrasound, and TENS therapy. It may also utilize manual therapy and myofascial release for the myofascial component of the patient s pain. It will likely advance to modalities aimed at stabilizing and strengthing the target area while improving range of motion as well. We are also requesting that the physical therapist send notes that will keep our clinic updated to the patient s progress. Right Sacroiliac Joint Radiofrequency Ablation - under fluoroscopy [...] CHIQUITA WONG who performed the above service. Kathy Ziegler CNA 04/24/25 1023 CHIQUITA Wong 04/24/25 1322 documented in this encounter [facility] 04-24-2025 Instructions Kathy Ziegler CNA - 04/24/2025 9:30 AM EDT Radiofrequency Ablation (RFA) Radiofrequency ablation (or [...] a few restrictions immediately following radiofrequency ablation: If you had sedation, do not drive or operate machinery for at [...] may experience the following effects after RFA: Extremity numbness: If you have any leg numbness, [...] back to normal. documented in this encounter [facility] 02-20-2025 History of Presen t illness Narrative [facility] [address] [place] [address] Patient: Celestino Ziegler Sex: male : 1970 Age: 54 y.o. PCP: DONNA HERRERA MD 02/20/2025 Celestino Ziegler is here for a(n) post procedure follow up 01/19/2025 Left Sacroiliac Radio Frequency Ablation with 95% relief continuing today.. . Date of onset of pain: 2017 , pain has lasted greater than 3 months. Pain scale before treatment: 7/10 Pre-op pain score: 7/10 Percentage and duration of relief after treatment: 95% relief continuing Pain scale after treatment: 0/10-1/10 Chief Complaint Patient presents with Back Pain [...] 90% relief of leg pain that continues. 12/15/24 L12 NR with 10% relief for one day 01/19/2025 Left Sacroiliac Radio Frequency Ablation with 95% relief continuing today.. Back Pain This is a new (01/13/2025) problem. The current episode started in the past 7 days (left lateral thoracic pain). The problem occurs intermittently. The problem has been rapidly improving since onset. The pain is present in the lumbar spine. The quality of the pain is described as aching (deep ache, intermittent stabbing). Radiates to: bilateral hips. The pain is at a severity of 1/10. The pain is mild. Worse during: pain in the evening when laying down. Exacerbated by: any movement. Stiffness is present All day. Pertinent negatives include no abdominal pain, bladder incontinence, bowel incontinence, chest pain, fever, leg pain, numbness, tingling or weakness. Risk factors include poor posture and obesity. Treatments tried: DR cid/HEP, NSAID (naproxen, diclofenac), Gabapentin,rest, ice/heat,mild relief prednisone, flexeril min to mod. The effect of pain on patient's ADLS: Moderate Impairment. Past Medical History: Diagnosis Date Alcoholism ([facility]) Anemia Asthma Back pain Chronic pain [...] Jr Christian Estrada DO at [facility] ARTHROSCOPY REPAIR ROTATOR CUFF SHOULDER Left 06/07/2018 Performed by Jr Christian Estrada DO at [facility] ARTHROSCOPY SHOULDER Left 06/07/2018 Performed by Jr Christian Estrada DO at [facility] INJECTION BLOCK SACROILIAC JOINT Bilateral 02/04/2024 Performed by Dave Garcia MD at [facility] INJECTION BLOCK SACROILIAC JOINT Bilateral 06/04/2023 Performed by Dave Garcia MD at [facility] INJECTION BLOCK SACROILIAC JOINT Bilateral 03/19/2023 Performed by Dave Garcia MD at [facility] INJECTION BLOCK SACROILIAC JOINT Bilateral 01/15/2023 Performed by Dave Garcia MD at [facility] INJECTION BLOCK SACROILIAC JOINT Bilateral 09/04/2022 Performed by Dave Garcia MD at [facility] INJECTION BLOCK SACROILIAC JOINT Right 05/22/2022 Performed by Dave Garcia MD at [facility] INJECTION BLOCK SACROILIAC JOINT Bilateral 02/20/2022 Performed by Dave Garcia MD at [facility] INJECTION BLOCK SACROILIAC JOINT Bilateral 10/20/2021 Performed by Dave Garcia MD at [facility] INJECTION BLOCK SACROILIAC JOINT Bilateral 12/13/2020 Performed by Dave Garcia MD at [facility] INJECTION BURSA LARGE JOINT Right hip intra-articular Right 02/21/2021 Performed by Dave Garcia MD at [facility] INJECTION BURSA LARGE JOINT: right hip Right 03/27/2022 Performed by Dave Garcia MD at [facility] INJECTION CAUDAL EPIDURAL WITH CATHETER, STEROID N/A 02/23/2020 Performed by Dave Garcia MD at [facility] CAUDAL EPIDURAL WITH CATHETER, STEROID N/A 01/15/2020 Performed by Dave Garcia MD at [facility] INJECTION CAUDAL EPIDURAL WITH CATHETER, STEROID N/A 06/23/2019 Performed by Dave Garcia MD at [facility] INJECTION CAUDAL EPIDURAL WITH CATHETER, STEROID N/A 05/05/2019 Performed by Dave Garcia MD at [facility] INJECTION CAUDAL EPIDURAL WITH CATHETER, STEROID N/A 08/12/2018 Performed by Dave Garcia MD at [facility] INJECTION CAUDAL EPIDURAL WITH CATHETER, STEROID 1 of 2 N/A 01/28/2018 Performed by Dave Garcia MD at [facility] INJECTION CAUDAL EPIDURAL WITH CATHETER, STEROID 2 of 2 N/A 02/11/2018 Performed by Dave Garcia MD at [facility] SPINE TRANSFORAMINAL Left L 1,2 Nroot Left 12/15/2024 Performed by Dave Garcia MD at [facility] SPINE TRANSFORAMINAL Left L 1,2 Nroot Left 01/24/2021 Performed by Dave Garcia MD at [facility] SPINE TRANSFORAMINAL: left L 1,2 nroot Left 04/17/2022 Performed by Dave Garcia MD at [facility] SPINE TRANSFORAMINAL: right L 1,2 Nroot Right 09/15/2024 Performed by Dave Garcia MD at [facility] SPINE TRANSFORAMINAL: right L 1,2 nroot Right 04/16/2023 Performed by Dave Garcia MD at [facility] LAMINECTOMY LUMBAR SINGLE LEVEL / L1-L2 N/A 10/22/2023 Performed by Darrell Olsen MD at [facility] LUMBAR FUSION 2019 L2-S1 RADIOFREQUENCY ABLATION SPINAL Left SI Left 01/19/2025 Performed by Dave Garcia MD at [facility] RADIOFREQUENCY ABLATION SPINAL: left SI Left 05/12/2024 Performed by Dave Garcia MD at [facility] RADIOFREQUENCY ABLATION SPINAL: right SI Right 04/28/2024 Performed by Dave Garcia MD at [facility] REFRACTIVE SURGERY Bilateral No Known Allergies Family [...] on file Food Insecurity: No Food Insecurity (02/20/2025) Hunger Screening Food Insecurity - Worry: Never [...] HENT: Negative. Eyes: Negative. Respiratory: Negative. Cardiovascular: Negative. Negative for chest pain. Gastrointestinal: Negative. Negative for abdominal pain and bowel incontinence. Endocrine: Negative. Genitourinary: Negative. Negative for bladder incontinence. Musculoskeletal: Positive for back pain. Skin: Negative. Neurological: Negative for tingling, weakness and numbness. Vital Signs: BP 120/85 (BP Site: Right Arm, BP Postition: Sitting) Pulse 93 Resp 18 Ht 172.7 cm (5' 8 ) Wt 90.3 kg (199 lb) SpO2 96% BMI 30.26 kg/m Physical Exam: GENERAL - [...] for this visit: Lumbosacral spondylosis without myelopathy Monitor At this time it does appear that the patient s pain is under adequate control with conservative care. It is felt that we should continue this approach and continue to monitor these symptoms and address them again in the future if they become more problematic. This approach was discussed with the patient and they are in agreement. Follow up in 2 months. The medications I have prescribed have been [...] tapering and discontinuation of medications if applicable. Prescribed medication that requires intensive monitoring for toxicity: Gabapentin. The spine model was demonstrated and MRI was reviewed and used to explain the condition. OARRS: Reviewed. Follow up in 2 months. Scribe Statement: I, Iris Virginia, RN, scribed for and in the presence of CHIQUITA WONG who performed the above service. Bonnie Coleman RN 02/20/25 [id number] CHIQUITA Wong 02/20/25 [id number] documented in this encounter [facility] 01-18-2025 History of Presen t illness Narrative [facility] [address] [place] [address] Patient: Celestino Ziegler Sex: male : 1970 Age: 54 y.o. PCP: DONNA HERRERA MD 01/18/2025 Celestino Ziegler is here for a(n) pain to left flank/lateral thoracic area. Patient reports pain was so severe he went to the ED on Wednesday via ambulance. He states he had another severe bout with pain Wednesday night and almost called the squad again. Today his pain is 3/10 at this time but was 8/10 this morning. He was prescribed Prednisone and Flexeril per ED provider. He had a visit with PCP today who prescribed Percocet. Chief Complaint Patient presents with Back Pain [...] 90% relief of leg pain that continues. 12/15/24 L12 NR with 10% relief for one day Back Pain This is a new (01/13/2025) problem. The current episode started in the past 7 days (left lateral thoracic pain). The problem occurs constantly. The problem has been rapidly improving (since yesterday) since onset. The pain is present in the thoracic spine. The quality of the pain is described as aching (deep ache, intermittent stabbing). The pain does not radiate. The pain is at a severity of 3/10 (was up to 8/10). The pain is moderate. The pain is The same all the time. Exacerbated by: any movement. Stiffness is present All day. Pertinent negatives include no abdominal pain, bladder incontinence, bowel incontinence, chest pain, fever, leg pain, numbness, tingling or weakness. Risk factors include poor posture and obesity. Treatments tried: DR cid/CHARLEY, NSAID (naproxen, diclofenac), Gabapentin,rest, ice/heat,mild relief prednisone, flexeril min to mod. The effect of pain on patient's ADLS: [...] Jr Christian Estrada DO at [facility] ARTHROSCOPY REPAIR ROTATOR CUFF SHOULDER Left 06/07/2018 Performed by Jr Christian Estrada DO at [facility] ARTHROSCOPY SHOULDER Left 06/07/2018 Performed by Jr Christian Estrada DO at [facility] INJECTION BLOCK SACROILIAC JOINT Bilateral 02/04/2024 Performed by Dave Garcia MD at [facility] INJECTION BLOCK SACROILIAC JOINT Bilateral 06/04/2023 Performed by Dave Garcia MD at [facility] INJECTION BLOCK SACROILIAC JOINT Bilateral 03/19/2023 Performed by Dave Garcia MD at [facility] INJECTION BLOCK SACROILIAC JOINT Bilateral 01/15/2023 Performed by Dave Garcia MD at [facility] INJECTION BLOCK SACROILIAC JOINT Bilateral 09/04/2022 Performed by Dave Garcia MD at [facility] INJECTION BLOCK SACROILIAC JOINT Right 05/22/2022 Performed by Dave Garcia MD at [facility] INJECTION BLOCK SACROILIAC JOINT Bilateral 02/20/2022 Performed by Dave Garcia MD at [facility] INJECTION BLOCK SACROILIAC JOINT Bilateral 10/20/2021 Performed by Dave Garcia MD at [facility] INJECTION BLOCK SACROILIAC JOINT Bilateral 12/13/2020 Performed by Dave Garcia MD at [facility] INJECTION BURSA LARGE JOINT Right hip intra-articular Right 02/21/2021 Performed by Dave Garcia MD at [facility] INJECTION BURSA LARGE JOINT: right hip Right 03/27/2022 Performed by Dave Garcia MD at [facility] INJECTION CAUDAL EPIDURAL WITH CATHETER, STEROID N/A 02/23/2020 Performed by Dave Garcia MD at [facility] INJECTION CAUDAL EPIDURAL WITH CATHETER, STEROID N/A 01/15/2020 Performed by Dave Garcia MD at [facility] INJECTION CAUDAL EPIDURAL WITH CATHETER, STEROID N/A 06/23/2019 Performed by Dave Garcia MD at [facility] INJECTION CAUDAL EPIDURAL WITH CATHETER, STEROID N/A 05/05/2019 Performed by Dave Garcia MD at [facility] INJECTION CAUDAL EPIDURAL WITH CATHETER, STEROID N/A 08/12/2018 Performed by Dave Garcia MD at [facility] CAUDAL EPIDURAL WITH CATHETER, STEROID 1 of 2 N/A 01/28/2018 Performed by Dave Garcia MD at [facility] CAUDAL EPIDURAL WITH CATHETER, STEROID 2 of 2 N/A 02/11/2018 Performed by Dave Garcia MD at [facility] SPINE TRANSFORAMINAL Left L 1,2 Nroot Left 12/15/2024 Performed by Dave Garcia MD at [facility] SPINE TRANSFORAMINAL Left L 1,2 Nroot Left 01/24/2021 Performed by Dave Garcia MD at [facility] SPINE TRANSFORAMINAL: left L 1,2 nroot Left 04/17/2022 Performed by Dave Garcia MD at [facility] SPINE TRANSFORAMINAL: right L 1,2 Nroot Right 09/15/2024 Performed by Dave Garcia MD at [facility] SPINE TRANSFORAMINAL: right L 1,2 nroot Right 04/16/2023 Performed by Dave Garcia MD at [facility] LAMINECTOMY LUMBAR SINGLE LEVEL / L1-L2 N/A 10/22/2023 Performed by Darrell Olsen MD at [facility] LUMBAR FUSION 2020 L2-S1 RADIOFREQUENCY ABLATION SPINAL: left SI Left 05/12/2024 Performed by Dave Garcia MD at [facility] RADIOFREQUENCY ABLATION SPINAL: right SI Right 04/28/2024 Performed by Dave Garcai MD at [facility] REFRACTIVE SURGERY Bilateral No Known Allergies Family [...] on file Food Insecurity: No Food Insecurity (01/13/2025) Hunger Screening Food Insecurity - Worry: Never [...] Negative. Cardiovascular: Negative for chest pain. Gastrointestinal: Negative for abdominal pain and bowel incontinence. Genitourinary: Negative. Negative for bladder incontinence. Musculoskeletal: Positive for back pain. Skin: Negative. Neurological: Negative for tingling, weakness and numbness. Psychiatric/Behavioral: Negative. Vital Signs: BP 130/62 Pulse 116 Resp 16 SpO2 96% Physical Exam: GENERAL - Healthy patient that [...] obvious deficits in memory, reasoning, or intellect. Thoracic: SKIN - No rashes or bruising in the area of the patient s pain. LYMPH NODES - demonstrate no obvious enlargement. EXTREMITIES - Extremities are warm, with minimal edema and palpable pulses. Tenderness to palpation noted in the thoracic spine and paraspinal musculature. Pain is elicited with flexion, extension, and lateral rotation of the thoracic spine. Range of motion is diminished with these motions due to pain. Facet palpation is noted to be somewhat tender but not concordant with the patient s normal pain complaints. STRENGTH - noted to be 5 out of 5 all muscle groups bilateral upper and lower extremities. No notable atrophy, fasciculations or spasm. SENSORY - No notable sensory deficits in the thoracic dermatomal distributions with exception to increased sensation in the Left T7, T8 levels. Assessment/Treatment Plan: Celestino was seen today for back pain. Diagnoses and all orders for this visit: Disc displacement, thoracic - MR thoracic spine without contrast; Future Lumbar spine MRI - It is felt that additional diagnostic testing is necessary to further evaluate the patients current pain pathology. For this reason, we will order additional imaging noted above. It is hopeful that this study will identify a significant pain generator that will be amenable to therapy. It is felt that this modality is necessary due to the severity and chronicity of symptoms and physical exam findings combined with the lack of recent imaging of the area. An MRI is specifically felt to be necessary due to the physical exam findings noted above and the patient s description of refractory pain in a neuropathic distribution that is not relieved by change in body position and interferes with the patient s activities of daily living Follow up as scheduled The medications I have prescribed have been [...] prescribed. The spine model was demonstrated and Xray, MRI, and CT was reviewed and used to explain the condition. OARRS: Reviewed. Scribe Statement: Kathy Carr CNA, scribed for and in the presence of CHIQUITA WONG who performed the above service. Kathy Ziegler CNA 01/18/25 1516 CHIQUITA Wong 01/23/25 [id number] documented in this encounter [facility] 01-17-2025 Miscellaneous Notes Patient called this morning and left a message that he went to the ED this past Wednesday via ambulance due to severe rib/chest pain. Phe indicated that the pain is not in his back. Per message he couldn't walk yesterday. Call placed to patient to obtain additional information. Patient states pain to left lateral thoracic region became so severe that he called the squad on Wednesday. A CT abd/pelvis was completed: Impression: There is no definite acute abnormality to explain the patient's symptoms. Likely left renal cyst. No obvious hydronephrosis or urinary calculus. Extensive degenerative changes at L1-2 at superior margin of L2-S1 fusion He reports that while in the ED IV morphine was administered with no relief. He was also given IV steroid that provided moderate relief. Patient was discharged home with prescriptions for flexeril and 7 days of prednisone (40 mg daily) which has provided no relief. He states he had another severe bout with pain last night and almost called the squad again. He is concerned that he may have another severe episode and would like to know how to proceed. Current interventions include Gabapentin, Diclofenac, Prednisone, and flexeril which have provided no relief. He states the severe pain feels like he is being stabbed by a knife. He is scheduled for a left SI RFA 01/19/2025 but feels like his current pain (thoracic) is worse than the SI pain. Discussed with Vipul. Patient can be offered tomorrow's open appointment for evaluation. Call placed to patient to offered the open appointment on 01/18. Regional Agronomist explained to patient that he will be evaluated but that he should not expect an new procedure to be ordered tomorrow. He asks about medication. It was explained to patient that additional medication changes would have to be discussed with provider in the office. PVU and agrees to the appt tomorrow. He has an appointment with his PCP tomorrow as well. documented in this encounter [facility] 01-17-2025 Telephone encounter Note Patient called this morning and left a message that he went to the ED this past Wednesday via ambulance due to severe rib/chest pain. Phe indicated that the pain is not in his back. Per message he couldn't walk yesterday. Call placed to patient to obtain additional information. Patient states pain to left lateral thoracic region became so severe that he called the squad on Wednesday. A CT abd/pelvis was completed: Impression: There is no definite acute abnormality to explain the patient's symptoms. Likely left renal cyst. No obvious hydronephrosis or urinary calculus. Extensive degenerative changes at L1-2 at superior margin of L2-S1 fusion He reports that while in the ED IV morphine was administered with no relief. He was also given IV steroid that provided moderate relief. Patient was discharged home with prescriptions for flexeril and 7 days of prednisone (40 mg daily) which has provided no relief. He states he had another severe bout with pain last night and almost called the squad again. He is concerned that he may have another severe episode and would like to know how to proceed. Current interventions include Gabapentin, Diclofenac, Prednisone, and flexeril which have provided no relief. He states the severe pain feels like he is being stabbed by a knife. He is scheduled for a left SI RFA 01/19/2025 but feels like his current pain (thoracic) is worse than the SI pain. Discussed with Vipul. Patient can be offered tomorrow's open appointment for evaluation. Call placed to patient to offered the open appointment on 01/18. Regional Agronomist explained to patient that he will be evaluated but that he should not expect an new procedure to be ordered tomorrow. He asks about medication. It was explained to patient that additional medication changes would have to be discussed with provider in the office. PVU and agrees to the appt tomorrow. He has an appointment with his PCP tomorrow as well. [facility] 12-28-2024 History of Presen t illness Narrative [facility] [address] [place] [address] Patient: Celestino Ziegler Sex: male : 1970 Age: 54 y.o. PCP: DONNA HERRERA MD 12/28/2024 Celestino Ziegler is here for a(n) post procedure follow up left L12 NR with 10% relief for one day. Patient . Pain returned to baseline after. Patient states pain seems to go into the left hip and into the groin. Currently rates pain a 4/10 and can increase to 7/10. Pain is worse when lying down. Date of onset of pain: pain has lasted greater than 3 months. Pain scale before treatment: 2/10 Pre-op pain score: 5/10 Percentage and duration of relief after treatment: 10% relief for one day Pain scale after treatment: 4/10 Chief Complaint Patient presents with Back Pain [...] 90% relief of leg pain that continues. 12/15/24 L12 NR with 10% relief for one day Back Pain This is a chronic problem. The current episode started more than 1 year ago (childhood). The problem occurs intermittently (fluctuates depending on activity). The problem is unchanged. The pain is present in the lumbar spine (left hip into left groin). The quality of the pain is described as aching and stabbing (jabbing). Radiates to: left hip. The pain is at a severity of 4/10 (7/10 in the mornig, pain decreases as day progresses). The pain is moderate. Worse during: pain is aggrevated with lying down and worse upon rising. The symptoms are aggravated by bending, twisting, sitting, position and standing (heavy lifting, walking, stairs, standing, twisting and bending ). Stiffness is present In the morning. Pertinent negatives include no abdominal pain, bladder incontinence, bowel incontinence, chest pain, fever, leg pain, numbness, tingling or weakness. Risk factors include [...] Performed by Jr Christian Estrada DO at [facility] ARTHROSCOPY REPAIR ROTATOR CUFF SHOULDER Left 06/07/2018 Performed by Jr Christian Estrada DO at [facility] ARTHROSCOPY SHOULDER Left 06/07/2018 Performed by Jr Christian Estrada DO at [facility] INJECTION BLOCK SACROILIAC JOINT Bilateral 02/04/2024 Performed by Dave Garcia MD at [facility] INJECTION BLOCK SACROILIAC JOINT Bilateral 06/04/2023 Performed by Dave Garcia MD at [facility] INJECTION BLOCK SACROILIAC JOINT Bilateral 03/19/2023 Performed by Dave Garcia MD at [facility] INJECTION BLOCK SACROILIAC JOINT Bilateral 01/15/2023 Performed by Dave Garcia MD at [facility] INJECTION BLOCK SACROILIAC JOINT Bilateral 09/04/2022 Performed by Dave Garcia MD at [facility] INJECTION BLOCK SACROILIAC JOINT Right 05/22/2022 Performed by Dave Garcia MD at [facility] INJECTION BLOCK SACROILIAC JOINT Bilateral 02/20/2022 Performed by Dave Garcia MD at [facility] INJECTION BLOCK SACROILIAC JOINT Bilateral 10/20/2021 Performed by Dave Garcia MD at [facility] INJECTION BLOCK SACROILIAC JOINT Bilateral 12/13/2020 Performed by Dave Garcia MD at [facility] INJECTION BURSA LARGE JOINT Right hip intra-articular Right 02/21/2021 Performed by Dave Garcia MD at [facility] INJECTION BURSA LARGE JOINT: right hip Right 03/27/2022 Performed by Dave Garcia MD at [facility] INJECTION CAUDAL EPIDURAL WITH CATHETER, STEROID N/A 02/23/2020 Performed by Dave Garcia MD at [facility] INJECTION CAUDAL EPIDURAL WITH CATHETER, STEROID N/A 01/15/2020 Performed by Dave Garcia MD at [facility] INJECTION CAUDAL EPIDURAL WITH CATHETER, STEROID N/A 06/23/2019 Performed by Dave Garcia MD at [facility] INJECTION CAUDAL EPIDURAL WITH CATHETER, STEROID N/A 05/05/2019 Performed by Dave Garcia MD at [facility] INJECTION CAUDAL EPIDURAL WITH CATHETER, STEROID N/A 08/12/2018 Performed by Dave Garcia MD at [facility] INJECTION CAUDAL EPIDURAL WITH CATHETER, STEROID 1 of 2 N/A 01/28/2018 Performed by Dave Garcia MD at [facility] CAUDAL EPIDURAL WITH CATHETER, STEROID 2 of 2 N/A 02/11/2018 Performed by Dave Garcia MD at [facility] SPINE TRANSFORAMINAL Left L 1,2 Nroot Left 12/15/2024 Performed by Dave Garcia MD at [facility] SPINE TRANSFORAMINAL Left L 1,2 Nroot Left 01/24/2021 Performed by Dave Garcia MD at [facility] SPINE TRANSFORAMINAL: left L 1,2 nroot Left 04/17/2022 Performed by Dave Garcia MD at [facility] SPINE TRANSFORAMINAL: right L 1,2 Nroot Right 09/15/2024 Performed by Dave Garcia MD at [facility] SPINE TRANSFORAMINAL: right L 1,2 nroot Right 04/16/2023 Performed by Daev Garcia MD at [facility] LAMINECTOMY LUMBAR SINGLE LEVEL / L1-L2 N/A 10/22/2023 Performed by Darrell Olsen MD at [facility] LUMBAR FUSION 2019 L2-S1 RADIOFREQUENCY ABLATION SPINAL: left SI Left 05/12/2024 Performed by Dave Garcia MD at [facility] RADIOFREQUENCY ABLATION SPINAL: right SI Right 04/28/2024 Performed by Dave Garcia MD at [facility] REFRACTIVE SURGERY Bilateral No Known Allergies Family [...] on file Food Insecurity: No Food Insecurity (12/28/2024) Hunger Screening Food Insecurity - Worry: Never [...] Negative for fever. HENT: Negative. Negative for congestion. Eyes: Negative. Respiratory: Negative. Negative for cough and shortness of breath. Cardiovascular: Negative. Negative for chest pain. Gastrointestinal: Negative. Negative for abdominal pain and bowel incontinence. Endocrine: Negative. Genitourinary: Negative. Negative for bladder incontinence. Musculoskeletal: Positive for back pain. Skin: Negative. Allergic/Immunologic: Negative. Neurological: Negative. Negative for tingling, weakness and numbness. Hematological: Negative. Psychiatric/Behavioral: Negative. Vital Signs: BP 124/84 (BP Site: Right Arm, BP Postition: Sitting) Pulse 93 Resp 18 SpO2 95% Physical Exam: GENERAL - Healthy patient that [...] Tenderness to palpation is noted over the Left SacroIliac Joint: Fabere sign (Ilya's Test) is significantly positive, as is compression and distraction of the sacroiliac joints, which is consistent with some of the patient's normal pain. Distal Joint Exam - Lower Extremity: SKIN - No rashes or bruising in the area of the patient s pain. EXTREMITIES - Lower extremities are warm, with minimal edema and palpable pulses. Strength is 5/5 all muscle groups of the bilateral lower extremities. There is no obvious atrophy, fasciculations, or spasms. There are no notable sensory deficits in the overlying dermatomal distributions. Gait is normal. Examination of the Left ankle reveals tenderness to palpation over the medial and lateral maleolus. Mild swelling is noted without significant erythema. Pain is elicited with dorsiflexion and plantarflexion of the foot. Assessment/Treatment Plan: Celestino was seen today for back pain. Diagnoses and all orders for this visit: Disorder of sacrum - Case request operating room: RADIOFREQUENCY ABLATION SI JOINT Chronic pain of left ankle - X-ray ankle left minimum 3 views; Future Refill Gabapentin 800 mg TID and continue Diclofenac 75 mg BID Left Ankle xray Imaging/Diagnostic Testing - It is felt that additional diagnostic testing is necessary to further evaluate the patients current pain pathology. For this reason, we will order additional imaging/diagnostic testing noted above. It is hopeful that this study will identify a significant pain generator that will be amenable to therapy. It is felt that this modality is necessary due to the severity and chronicity of symptoms and physical exam findings combined with the lack of recent imaging/diagnostic testing of the area. Left Sacroiliac Joint Radiofrequency Ablation - under [...] over the counter pain relievers. Follow up 2 weeks after procedure The [...] Gabapentin was refilled at today's office visit. It is noted that the patient did have good response from the previously performed procedure. It is felt that the patient would benefit from an additional procedure of the same nature in that the same symptoms have returned. It is hopeful that this additional injection will provide additional benefit and duration when combined with the previous injection. The spine model was demonstrated and MRI was reviewed and used to explain the condition. OARRS: Reviewed. Scribe Statement: IKathy CNA, scribed for and in the presence of CHIQUITA WONG who performed the above service. Kathy Ziegler CNA 12/28/24 1412 CHIQUITA Wong 12/28/24 1511 [facility] Instructions Kathy Ziegler CNA - 12/28/2024 1:30 PM EDT Radiofrequency Ablation (RFA) Radiofrequency ablation [...] a few restrictions immediately following radiofrequency ablation: If you had sedation, do not drive or operate machinery for at [...] may experience the following effects after RFA: Extremity numbness: If you have any leg numbness, [...] back to normal. documented in this encounter [facility] 12-05-2024 History of Presen t illness Narrative [facility] [address] [place] [address] Patient: Celestino Maldonadoannie Sex: male : 1970 Age: 54 y.o. PCP: DONNA HERRERA MD 12/05/2024 Celestino [place] Anabela is here for a(n) follow up. Patient states pain remains unchanged. Currently rates pain a 2/10 and the worse it gets is a 6-7/10. Pain is worse when lying down and first thing in the morning. Chief Complaint Patient presents with Back Pain [...] 1 year ago (childhood). The problem occurs intermittently (fluctuates depending on activity). The problem is unchanged. The pain is present in the lumbar spine (bilateral hips, bilateral anterior thighs). The quality of the pain is described as aching and stabbing. Radiates to: bilateral hips. The pain is at a severity of [...] the morning. Associated symptoms include leg pain (bilateral anterior thighs). Pertinent negatives include no abdominal pain, [...] Jr Christian Estrada DO at [facility] ARTHROSCOPY REPAIR ROTATOR CUFF SHOULDER Left 06/07/2018 Performed by Jr Christian Estrada DO at [facility] ARTHROSCOPY SHOULDER Left 06/07/2018 Performed by Jr Christian Estrada DO at [facility] INJECTION BLOCK SACROILIAC JOINT Bilateral 02/04/2024 Performed by Dave Garcia MD at [facility] INJECTION BLOCK SACROILIAC JOINT Bilateral 06/04/2023 Performed by Dave Garcia MD at [facility] INJECTION BLOCK SACROILIAC JOINT Bilateral 03/19/2023 Performed by Dave Garcia MD at [facility] INJECTION BLOCK SACROILIAC JOINT Bilateral 01/15/2023 Performed by Dave Garcia MD at [facility] INJECTION BLOCK SACROILIAC JOINT Bilateral 09/04/2022 Performed by Dave Garcia MD at [facility] INJECTION BLOCK SACROILIAC JOINT Right 05/22/2022 Performed by Dave Garcia MD at [facility] INJECTION BLOCK SACROILIAC JOINT Bilateral 02/20/2022 Performed by aDve Garcia MD at [facility] INJECTION BLOCK SACROILIAC JOINT Bilateral 10/20/2021 Performed by Dave Garcia MD at [facility] INJECTION BLOCK SACROILIAC JOINT Bilateral 12/13/2020 Performed by Dave Garcia MD at [facility] INJECTION BURSA LARGE JOINT Right hip intra-articular Right 02/21/2021 Performed by Dave Garcia MD at [facility] INJECTION BURSA LARGE JOINT: right hip Right 03/27/2022 Performed by Dave Garcia MD at [facility] INJECTION CAUDAL EPIDURAL WITH CATHETER, STEROID N/A 02/23/2020 Performed by Dave Garcia MD at [facility] INJECTION CAUDAL EPIDURAL WITH CATHETER, STEROID N/A 01/15/2020 Performed by Dave Garcia MD at [facility] INJECTION CAUDAL EPIDURAL WITH CATHETER, STEROID N/A 06/23/2019 Performed by Dave Garcia MD at [facility] INJECTION CAUDAL EPIDURAL WITH CATHETER, STEROID N/A 05/05/2019 Performed by Dave Garcia MD at [facility] INJECTION CAUDAL EPIDURAL WITH CATHETER, STEROID N/A 08/12/2018 Performed by Dave Garcia MD at [facility] INJECTION CAUDAL EPIDURAL WITH CATHETER, STEROID 1 of 2 N/A 01/28/2018 Performed by Dave Garcia MD at [facility] INJECTION CAUDAL EPIDURAL WITH CATHETER, STEROID 2 of 2 N/A 02/11/2018 Performed by Dave Garcia MD at [facility] INJECTION SPINE TRANSFORAMINAL Left L 1,2 Nroot Left 01/24/2021 Performed by Dave Garcia MD at [facility] INJECTION SPINE TRANSFORAMINAL: left L 1,2 nroot Left 04/17/2022 Performed by Dave Garcia MD at [facility] INJECTION SPINE TRANSFORAMINAL: right L 1,2 Nroot Right 09/15/2024 Performed by Dave Garcia MD at [facility] INJECTION SPINE TRANSFORAMINAL: right L 1,2 nroot Right 04/16/2023 Performed by Daev Garcia MD at [facility] LAMINECTOMY LUMBAR SINGLE LEVEL / L1-L2 N/A 10/22/2023 Performed by Darrell Olsen MD at [facility] LUMBAR FUSION 2019 L2-S1 RADIOFREQUENCY ABLATION SPINAL: left SI Left 05/12/2024 Performed by Dave Garcia MD at [facility] RADIOFREQUENCY ABLATION SPINAL: right SI Right 04/28/2024 Performed by Dave Garcia MD at [facility] REFRACTIVE SURGERY Bilateral No Known Allergies Family [...] on file Food Insecurity: No Food Insecurity (12/05/2024) Hunger Screening Food Insecurity - Worry: Never [...] Negative for fever. HENT: Negative. Negative for congestion. Eyes: Negative. Respiratory: Negative. Negative for cough and shortness of breath. Cardiovascular: Negative. Negative for chest pain. Gastrointestinal: Negative. Negative for abdominal pain and bowel incontinence. Endocrine: Negative. Genitourinary: Negative. Negative for bladder incontinence. Musculoskeletal: Positive for back pain. Skin: Negative. Allergic/Immunologic: Negative. Neurological: Negative. Negative for tingling, weakness and numbness. Hematological: Negative. Psychiatric/Behavioral: Negative. Vital Signs: BP (!) 134/91 (BP Site: Right Arm, BP Postition: Sitting) Pulse 91 Resp 18 Wt 88 kg (194 lb) SpO2 98% BMI 29.50 kg/m Physical Exam: GENERAL - Healthy patient [...] claudication - Case request operating room: INJECTION BLOCK EPIDURAL STEROID LUMBAR/SACRAL: left L12 nroot Continue Gabapentin 800 mg TID and Diclofenac 75 mg BID Left L1, 2 Nerve Root Injection - under [...] discussed and appropriate for medications prescribed. It is noted that the patient did have good response from the previously performed procedure. It is felt that the patient would benefit from an additional procedure of the same nature in that the same symptoms have returned. It is hopeful that this additional injection will provide additional benefit and duration when combined with the previous injection. The spine model was demonstrated and MRI was reviewed and used to explain the condition. Chronic conditions not treated during this visit that affected my overall medical decision making: Comorbidity- Anxiety The patient describes a significant issue with anxiety. Although treatment is helpful with this regard, the patient is likely need special accommodation due to this condition. For this reason, necessary procedures will likely need to be performed under sedation to decrease procedural anxiety. OARRS: Reviewed. Scribe Statement: Kathy Carr CNA, scribed for and in the presence of CHIQUITA WONG who performed the above service. Kathy Ziegler CNA 12/05/24 1222 CHIQUITA Wong 12/07/24 1353 documented in this encounter [facility] 12-05-2024 Instructions Kathy Ziegler CNA - 12/05/2024 11:15 AM EDT Epidural Steroid Injection (CELESTE) / Nerve Root [...] a safety precaution, you must have a transport driver after a lumbar nerve root injection, [...] back to normal. documented in this encounter [facility] 11-30-2024 Miscellaneous Notes Last OV: 10/05/24 Next OV: 12/05/24 OARRS appropriate: yes Last UDS: na Pharmacy: [facility] documented in this encounter [facility] 11-30-2024 Telephone encounter Note Last OV: 10/05/24 Next OV: 12/05/24 OARRS appropriate: yes Last UDS: na Pharmacy[facility] 10-05-2024 History of Presen t illness Narrative [facility] [address] [address] Patient: Celestino Ziegler Sex: male : 1970 [...] above Pain scale after treatment: 1-09/25 leg / back Chief Complaint Patient presents with Back [...] Jr Christian Estrada DO at [facility] ARTHROSCOPY REPAIR ROTATOR CUFF SHOULDER Left 06/07/2018 Performed by Jr Christian Estrada DO at [facility] ARTHROSCOPY SHOULDER Left 06/07/2018 Performed by Jr Christian Estrada DO at [facility] INJECTION BLOCK SACROILIAC JOINT Bilateral 02/04/2024 Performed by Dave Garcia MD at [facility] INJECTION BLOCK SACROILIAC JOINT Bilateral 06/04/2023 Performed by Dave Garcia MD at [facility] INJECTION BLOCK SACROILIAC JOINT Bilateral 03/19/2023 Performed by aDve Garcia MD at [facility] INJECTION BLOCK SACROILIAC JOINT Bilateral 01/15/2023 Performed by Dave Garcia MD at [facility] INJECTION BLOCK SACROILIAC JOINT Bilateral 09/04/2022 Performed by Dave Garcia MD at [facility] INJECTION BLOCK SACROILIAC JOINT Right 05/22/2022 Performed by Dave Garcia MD at [facility] INJECTION BLOCK SACROILIAC JOINT Bilateral 02/20/2022 Performed by Dave Garcia MD at [facility] INJECTION BLOCK SACROILIAC JOINT Bilateral 10/20/2021 Performed by Dave Garcia MD at [facility] INJECTION BLOCK SACROILIAC JOINT Bilateral 12/13/2020 Performed by Dave Garcia MD at [facility] INJECTION BURSA LARGE JOINT Right hip intra-articular Right 02/21/2021 Performed by Dave Garcia MD at [facility] INJECTION BURSA LARGE JOINT: right hip Right 03/27/2022 Performed by Dave Garcia MD at [facility] INJECTION CAUDAL EPIDURAL WITH CATHETER, STEROID N/A 02/23/2020 Performed by Dave Garcia MD at [facility] INJECTION CAUDAL EPIDURAL WITH CATHETER, STEROID N/A 01/15/2020 Performed by Dave Garcia MD at [facility] INJECTION CAUDAL EPIDURAL WITH CATHETER, STEROID N/A 06/23/2019 Performed by Dave Garcia MD at [facility] INJECTION CAUDAL EPIDURAL WITH CATHETER, STEROID N/A 05/05/2019 Performed by Dave Garcia MD at [facility] INJECTION CAUDAL EPIDURAL WITH CATHETER, STEROID N/A 08/12/2018 Performed by Dave Garcia MD at [facility] INJECTION CAUDAL EPIDURAL WITH CATHETER, STEROID 1 of 2 N/A 01/28/2018 Performed by Dave Garcia MD at [facility] INJECTION CAUDAL EPIDURAL WITH CATHETER, STEROID 2 of 2 N/A 02/11/2018 Performed by Dave Garcia MD at [facility] INJECTION SPINE TRANSFORAMINAL Left L 1,2 Nroot Left 01/24/2021 Performed by Dave Garcia MD at [facility] SPINE TRANSFORAMINAL: left L 1,2 nroot Left 04/17/2022 Performed by Dave Garcia MD at [facility] INJECTION SPINE TRANSFORAMINAL: right L 1,2 Nroot Right 09/15/2024 Performed by Dave Garcia MD at [facility] INJECTION SPINE TRANSFORAMINAL: right L 1,2 nroot Right 04/16/2023 Performed by Dave Garcia MD at [facility] LAMINECTOMY LUMBAR SINGLE LEVEL / L1-L2 N/A 10/22/2023 Performed by Darrell Olsen MD at [facility] LUMBAR FUSION 2020 L2-S1 RADIOFREQUENCY ABLATION SPINAL: left SI Left 05/12/2024 Performed by Dave Garcia MD at [facility] RADIOFREQUENCY ABLATION SPINAL: right SI Right 04/28/2024 Performed by Dave Garcia MD at [facility] REFRACTIVE SURGERY Bilateral No Known Allergies Family [...] and it is both accurate and complete. Kahty Ziegler CNA 10/05/24 [id number] CHIQUITA Wong 10/10/24 1145 documented in this encounter [facility] 08-29-2024 History of Presen t illness Narrative [facility] [address] [place] [address] Patient: Celestino Ziegler Sex: male : 1970 [...] Performed by Jr Christian Estrada DO at [facility] ARTHROSCOPY REPAIR ROTATOR CUFF SHOULDER Left 06/07/2018 Performed by Jr Christian Estrada DO at [facility] ARTHROSCOPY SHOULDER Left 06/07/2018 Performed by Jr Christian Estrada DO at [facility] INJECTION BLOCK SACROILIAC JOINT Bilateral 02/04/2024 Performed by Dave Garcia MD at [facility] INJECTION BLOCK SACROILIAC JOINT Bilateral 06/04/2023 Performed by Dave Garcia MD at [facility] INJECTION BLOCK SACROILIAC JOINT Bilateral 03/19/2023 Performed by Dave Garcia MD at [facility] INJECTION BLOCK SACROILIAC JOINT Bilateral 01/15/2023 Performed by Dave Garcia MD at [facility] INJECTION BLOCK SACROILIAC JOINT Bilateral 09/04/2022 Performed by Dave Garcia MD at [facility] INJECTION BLOCK SACROILIAC JOINT Right 05/22/2022 Performed by Dave Garcia MD at [facility] INJECTION BLOCK SACROILIAC JOINT Bilateral 02/20/2022 Performed by Dave Garcia MD at [facility] INJECTION BLOCK SACROILIAC JOINT Bilateral 10/20/2021 Performed by Dave Garcia MD at [facility] INJECTION BLOCK SACROILIAC JOINT Bilateral 12/13/2020 Performed by Dave Garcia MD at [facility] INJECTION BURSA LARGE JOINT Right hip intra-articular Right 02/21/2021 Performed by Dave Garcia MD at [facility] INJECTION BURSA LARGE JOINT: right hip Right 03/27/2022 Performed by Dave Garcia MD at [facility] INJECTION CAUDAL EPIDURAL WITH CATHETER, STEROID N/A 02/23/2020 Performed by Dave Garcia MD at [facility] INJECTION CAUDAL EPIDURAL WITH CATHETER, STEROID N/A 01/15/2020 Performed by Dave Garcia MD at [facility] INJECTION CAUDAL EPIDURAL WITH CATHETER, STEROID N/A 06/23/2019 Performed by Dave Garcia MD at [facility] INJECTION CAUDAL EPIDURAL WITH CATHETER, STEROID N/A 05/05/2019 Performed by Dave Garcia MD at [facility] INJECTION CAUDAL EPIDURAL WITH CATHETER, STEROID N/A 08/12/2018 Performed by Dave Garcia MD at [facility] INJECTION CAUDAL EPIDURAL WITH CATHETER, STEROID 1 of 2 N/A 01/28/2018 Performed by Dave Garcia MD at [facility] INJECTION CAUDAL EPIDURAL WITH CATHETER, STEROID 2 of 2 N/A 02/11/2018 Performed by Dave Garcia MD at [facility] INJECTION SPINE TRANSFORAMINAL Left L 1,2 Nroot Left 01/24/2021 Performed by Dave Garcia MD at [facility] INJECTION SPINE TRANSFORAMINAL: left L 1,2 nroot Left 04/17/2022 Performed by Dave Garcia MD at [facility] INJECTION SPINE TRANSFORAMINAL: right L 1,2 nroot Right 04/16/2023 Performed by Dave Garcia MD at [facility] LAMINECTOMY LUMBAR SINGLE LEVEL / L1-L2 N/A 10/22/2023 Performed by Darrell Olsen MD at [facility] LUMBAR FUSION 2019 L2-S1 RADIOFREQUENCY ABLATION SPINAL: left SI Left 05/12/2024 Performed by Dave Gacria MD at [facility] RADIOFREQUENCY ABLATION SPINAL: right SI Right 04/28/2024 Performed by Dave Garcia MD at [facility] REFRACTIVE SURGERY Bilateral No Known Allergies Family [...] Wong 08/29/24 1512 documented in [facility] 08-29-2024 Instructions Kathy Ziegler CNA - 08/29/2024 [...] a safety precaution, you must have a transport driver after a lumbar nerve root injection, [...] back to normal. documented in this encounter [facility] 08-22-2024 Miscellaneous Notes Last OV: 06/27/24 Next OV: 09/01/24 OARRS appropriate: yes Last UDS: na [facility]acy: [facility] documented in this encounter [facility] 08-22-2024 Telephone encounter Note Last OV: 06/27/24 Next OV: 09/01/24 OARRS appropriate: yes Last UDS: na Pharmacy: [facility] 06-27-2024 History of Presen t illness Narrative [facility] [address] [place] [address] Patient: Celestino Ziegler Sex: male : 1970 Age: 54 y.o. PCP: DONNA HERRERA MD 06/27/2024 Celestino Ziegler is here for a(n) post [...] relief that continues Pain scale after treatment: 7/10 No chief complaint on file. HPI: Previous [...] Jr Christian Estrada DO at [facility] ARTHROSCOPY REPAIR ROTATOR CUFF SHOULDER Left 06/07/2018 Performed by Jr Christian Estrada DO at [facility] ARTHROSCOPY SHOULDER Left 06/07/2018 Performed by Jr Christian Estrada DO at [facility] INJECTION BLOCK SACROILIAC JOINT Bilateral 02/04/2024 Performed by Dave Garcia MD at [facility] INJECTION BLOCK SACROILIAC JOINT Bilateral 06/04/2023 Performed by Dave Garcia MD at [facility] INJECTION BLOCK SACROILIAC JOINT Bilateral 03/19/2023 Performed by Dave Garcia MD at [facility] INJECTION BLOCK SACROILIAC JOINT Bilateral 01/15/2023 Performed by Dave Garcia MD at [facility] INJECTION BLOCK SACROILIAC JOINT Bilateral 09/04/2022 Performed by Dave Garcia MD at [facility] INJECTION BLOCK SACROILIAC JOINT Right 05/22/2022 Performed by Dave Garcia MD at [facility] INJECTION BLOCK SACROILIAC JOINT Bilateral 02/20/2022 Performed by Dave Garcia MD at [facility] INJECTION BLOCK SACROILIAC JOINT Bilateral 10/20/2021 Performed by Dave Garcia MD at [facility] INJECTION BLOCK SACROILIAC JOINT Bilateral 12/13/2020 Performed by Dave Garcia MD at [facility] INJECTION BURSA LARGE JOINT Right hip intra-articular Right 02/21/2021 Performed by Dave Garcia MD at [facility] BURSA LARGE JOINT: right hip Right 03/27/2022 Performed by Dave Garcia MD at [facility] INJECTION CAUDAL EPIDURAL WITH CATHETER, STEROID N/A 02/23/2020 Performed by Dave Garcia MD at [facility] INJECTION CAUDAL EPIDURAL WITH CATHETER, STEROID N/A 01/15/2020 Performed by Dave Garcia MD at [facility] INJECTION CAUDAL EPIDURAL WITH CATHETER, STEROID N/A 06/23/2019 Performed by Dave Garcia MD at [facility] INJECTION CAUDAL EPIDURAL WITH CATHETER, STEROID N/A 05/05/2019 Performed by Dave Garcia MD at [facility] INJECTION CAUDAL EPIDURAL WITH CATHETER, STEROID N/A 08/12/2018 Performed by Dave Garcia MD at [facility] INJECTION CAUDAL EPIDURAL WITH CATHETER, STEROID 1 of 2 N/A 01/28/2018 Performed by Dave Garcia MD at [facility] INJECTION CAUDAL EPIDURAL WITH CATHETER, STEROID 2 of 2 N/A 02/11/2018 Performed by Dave Garcia MD at [facility] SPINE TRANSFORAMINAL Left L 1,2 Nroot Left 01/24/2021 Performed by Dave Garcia MD at [facility] SPINE TRANSFORAMINAL: left L 1,2 nroot Left 04/17/2022 Performed by Dave Garcia MD at [facility] SPINE TRANSFORAMINAL: right L 1,2 nroot Right 04/16/2023 Performed by Dave Garcia MD at [facility] LAMINECTOMY LUMBAR SINGLE LEVEL / L1-L2 N/A 10/22/2023 Performed by Darrell Olsen MD at [facility] LUMBAR FUSION 2019 L2-S1 RADIOFREQUENCY ABLATION SPINAL: left SI Left 05/12/2024 Performed by Dave Garcia MD at [facility] RADIOFREQUENCY ABLATION SPINAL: right SI Right 04/28/2024 Performed by Dave Garcia MD at [facility] REFRACTIVE SURGERY Bilateral No Known Allergies Family [...] Wong 07/06/24 1218 documented in this encounter [facility] 06-07-2024 Miscellaneous Notes Last OV: RFA 05/12 Next OV: 06/27 OARRS appropriate: yes Last UDS: na [facility]acy[facility] documented in this encounter [facility] 06-07-2024 Telephone encounter Note Last OV: RFA 05/12 Next OV: 06/27 OARRS appropriate: yes Last UDS: na Pharmacy[facility] 04-13-2024 History of Presen t illness Narrative [facility] [address] [place] [address] Patient: Celestino Ziegler Sex: male : 1970 [...] for 1 day and resolved groin pain. 8/12/22 Right hip with no relief. 04/24/22 NRI [...] at a severity of 4/10 (up to 8-/10). The pain is moderate (to severe). The [...] Impairment. Past Medical History: Diagnosis Date Alcoholism ([facility]) Anemia Asthma Back pain Chronic pain [...] Jr Christian Estrada DO at [facility] ARTHROSCOPY REPAIR ROTATOR CUFF SHOULDER Left 06/07/2018 Performed by Jr Christian Estrada DO at [facility] ARTHROSCOPY SHOULDER Left 06/07/2018 Performed by Jr Christian Estrada DO at [facility] INJECTION BLOCK SACROILIAC JOINT Bilateral 02/04/2024 Performed by Dave Garcia MD at [facility] INJECTION BLOCK SACROILIAC JOINT Bilateral 06/04/2023 Performed by Dave Garcia MD at [facility] INJECTION BLOCK SACROILIAC JOINT Bilateral 03/19/2023 Performed by Dave Garcia MD at [facility] INJECTION BLOCK SACROILIAC JOINT Bilateral 01/15/2023 Performed by Dave Garcia MD at [facility] INJECTION BLOCK SACROILIAC JOINT Bilateral 09/04/2022 Performed by Dave Garcia MD at [facility] INJECTION BLOCK SACROILIAC JOINT Right 05/22/2022 Performed by Dave Garcia MD at [facility] INJECTION BLOCK SACROILIAC JOINT Bilateral 02/20/2022 Performed by Dave Garcia MD at [facility] INJECTION BLOCK SACROILIAC JOINT Bilateral 10/20/2021 Performed by Dave Garcia MD at [facility] INJECTION BLOCK SACROILIAC JOINT Bilateral 12/13/2020 Performed by Dave Garcia MD at [facility] INJECTION BURSA LARGE JOINT Right hip intra-articular Right 02/21/2021 Performed by Dave Garcia MD at [facility] INJECTION BURSA LARGE JOINT: right hip Right 03/27/2022 Performed by Dave Garcia MD at [facility] INJECTION CAUDAL EPIDURAL WITH CATHETER, STEROID N/A 02/23/2020 Performed by Dave Garcia MD at [facility] INJECTION CAUDAL EPIDURAL WITH CATHETER, STEROID N/A 01/15/2020 Performed by Dave Garcia MD at [facility] INJECTION CAUDAL EPIDURAL WITH CATHETER, STEROID N/A 06/23/2019 Performed by Dave Garcia MD at [facility] INJECTION CAUDAL EPIDURAL WITH CATHETER, STEROID N/A 05/05/2019 Performed by Dave Garcia MD at [facility] INJECTION CAUDAL EPIDURAL WITH CATHETER, STEROID N/A 08/12/2018 Performed by Dave Garcia MD at [facility] INJECTION CAUDAL EPIDURAL WITH CATHETER, STEROID 1 of 2 N/A 01/28/2018 Performed by Dave Garcia MD at [facility] INJECTION CAUDAL EPIDURAL WITH CATHETER, STEROID 2 of 2 N/A 02/11/2018 Performed by Dave Garcia MD at [facility] SPINE TRANSFORAMINAL Left L 1,2 Nroot Left 01/24/2021 Performed by Dave Garcia MD at [facility] [facility] SPINE TRANSFORAMINAL: left L 1,2 nroot Left 04/17/2022 Performed by Dave Garcia MD at [facility] SPINE TRANSFORAMINAL: right L 1,2 nroot Right 04/16/2023 Performed by Dave Garcia MD at [facility] LAMINECTOMY LUMBAR SINGLE LEVEL / L1-L2 N/A [...] accurate and complete. Kathy Ziegler CNA 04/13/24 0912 CHIQUITA Wong 04/13/24 1504 documented in this encounter [facility] 04-13-2024 Instructions Kathy Ziegler CNA - 04/13/2024 [...] back to normal. documented in this encounter [facility] 04-04-2024 Miscellaneous Notes Last Office Visit: 02/22/24 Next Office Visit: 04/13/2024 Last Urine Drug Screen: No results found for: BENZOSCRN OARRS appropriate documented in this encounter [facility] 04-04-2024 Telephone encounter Note Last Office Visit: 02/22/24 Next Office Visit: 04/13/2024 Last Urine Drug Screen: No results found for: BENZOSCRN OARRS appropriate [facility] 02-22-2024 History of Presen t illness Narrative [facility] [address] [place] [address] Patient: Celestino Ziegler Sex: male : 1970 [...] Impairment. Past Medical History: Diagnosis Date Alcoholism ([facility]) Anemia Asthma Back pain Chronic pain [...] Jr Christian Estrada DO at [facility] ARTHROSCOPY REPAIR ROTATOR CUFF SHOULDER Left 06/07/2018 Performed by Jr Christian Estrada DO at [facility] ARTHROSCOPY SHOULDER Left 06/07/2018 Performed by Jr Christian Estrada DO at [facility] INJECTION BLOCK SACROILIAC JOINT Bilateral 02/04/2024 Performed by Dave Garcia MD at [facility] INJECTION BLOCK SACROILIAC JOINT Bilateral 06/04/2023 Performed by Dave Garcia MD at [facility] INJECTION BLOCK SACROILIAC JOINT Bilateral 03/19/2023 Performed by Dave Garcia MD at [facility] INJECTION BLOCK SACROILIAC JOINT Bilateral 01/15/2023 Performed by Dave Garcia MD at [facility] INJECTION BLOCK SACROILIAC JOINT Bilateral 09/04/2022 Performed by Dave Garcia MD at [facility] INJECTION BLOCK SACROILIAC JOINT Right 05/22/2022 Performed by Dave Garcia MD at [facility] INJECTION BLOCK SACROILIAC JOINT Bilateral 02/20/2022 Performed by Dave Garcia MD at [facility] INJECTION BLOCK SACROILIAC JOINT Bilateral 10/20/2021 Performed by Dave Garcia MD at [facility] INJECTION BLOCK SACROILIAC JOINT Bilateral 12/13/2020 Performed by Dave Garcia MD at [facility] INJECTION BURSA LARGE JOINT Right hip intra-articular Right 02/21/2021 Performed by Dave Garcia MD at [facility] INJECTION BURSA LARGE JOINT: right hip Right 03/27/2022 Performed by Dave Garcia MD at [facility] INJECTION CAUDAL EPIDURAL WITH CATHETER, STEROID N/A 02/23/2020 Performed by Dave Garcia MD at [facility] INJECTION CAUDAL EPIDURAL WITH CATHETER, STEROID N/A 01/15/2020 Performed by Dave Garcia MD at [facility] INJECTION CAUDAL EPIDURAL WITH CATHETER, STEROID N/A 06/23/2019 Performed by Dave Garcia MD at [facility] INJECTION CAUDAL EPIDURAL WITH CATHETER, STEROID N/A 05/05/2019 Performed by Dave Garcia MD at [facility] INJECTION CAUDAL EPIDURAL WITH CATHETER, STEROID N/A 08/12/2018 Performed by Dave Garcia MD at [facility] INJECTION CAUDAL EPIDURAL WITH CATHETER, STEROID 1 of 2 N/A 01/28/2018 Performed by Dave Garcia MD at [facility] INJECTION CAUDAL EPIDURAL WITH CATHETER, STEROID 2 of 2 N/A 02/11/2018 Performed by Dave Garcia MD at [facility] INJECTION SPINE TRANSFORAMINAL Left L 1,2 Nroot Left 01/24/2021 Performed by Dave Garcia MD at [facility] INJECTION SPINE TRANSFORAMINAL: left L 1,2 nroot Left 04/17/2022 Performed by Dave Garcia MD at [facility] INJECTION SPINE TRANSFORAMINAL: right L 1,2 nroot Right 04/16/2023 Performed by Dave Garcia MD at [facility] LAMINECTOMY LUMBAR SINGLE LEVEL / L1-L2 N/A 10/22/2023 Performed by Darrell Olsen MD at [facility] LUMBAR FUSION 2020 L2-S1 REFRACTIVE SURGERY Bilateral No Known Allergies [...] Wong 02/24/24 0917 documented in this encounter [facility] 02-10-2024 History of Presen t illness Narrative Images from the original note were not included. [facility] [address] [place] [address], [address] [place] [address] * CHART NOTE ? 02/10/2024 Patient: Celestino Beach Joelannie 1970 [id number] Nurse Practitioner: Charles Tim CAREER PLACEMENT SERVICES COUNSELOR Physician: Darrell Olsen MD, FAANS IMPRESSION / [...] tingling into the BLE. Denies loss of tire vulcanizer strength, saddle anesthesia, urinary or bowel dysfunction, weakness, and loss of balance. Patient does not use an assistive device for ambulation. Patient is not diabetic and not a smoker. Hx of L2-S1 fusion with Dr. Cadet in 2019. PAST MEDICAL HISTORY Past Medical History: Diagnosis Date Alcoholism ([facility]) Anemia Asthma Back pain Chronic pain [...] Jr Christian Estrada DO at [facility] ARTHROSCOPY REPAIR ROTATOR CUFF SHOULDER Left 06/07/2018 Performed by Jr Christian Estrada DO at [facility] ARTHROSCOPY SHOULDER Left 06/07/2018 Performed by Jr Christian Estrada DO at [facility] INJECTION BLOCK SACROILIAC JOINT Bilateral 02/04/2024 Performed by Dave Garcia MD at [facility] INJECTION BLOCK SACROILIAC JOINT Bilateral 06/04/2023 Performed by Dave Garcia MD at [facility] INJECTION BLOCK SACROILIAC JOINT Bilateral 03/19/2023 Performed by Dave Garcia MD at [facility] INJECTION BLOCK SACROILIAC JOINT Bilateral 01/15/2023 Performed by Dave Garcia MD at [facility] INJECTION BLOCK SACROILIAC JOINT Bilateral 09/04/2022 Performed by Dave Garcia MD at [facility] INJECTION BLOCK SACROILIAC JOINT Right 05/22/2022 Performed by Dave Garcia MD at [facility] INJECTION BLOCK SACROILIAC JOINT Bilateral 02/20/2022 Performed by Dave Garcia MD at [facility] INJECTION BLOCK SACROILIAC JOINT Bilateral 10/20/2021 Performed by Dave Garcia MD at [facility] INJECTION BLOCK SACROILIAC JOINT Bilateral 12/13/2020 Performed by Dave Garcia MD at [facility] INJECTION BURSA LARGE JOINT Right hip intra-articular Right 02/21/2021 Performed by Dave Garcia MD at [facility] BURSA LARGE JOINT: right hip Right 03/27/2022 Performed by Dave Garcia MD at [facility] INJECTION CAUDAL EPIDURAL WITH CATHETER, STEROID N/A 02/23/2020 Performed by Dave Garcia MD at [facility] INJECTION CAUDAL EPIDURAL WITH CATHETER, STEROID N/A 01/15/2020 Performed by Dave Garcia MD at [facility] INJECTION CAUDAL EPIDURAL WITH CATHETER, STEROID N/A 06/23/2019 Performed by Dave Garcia MD at [facility] INJECTION CAUDAL EPIDURAL WITH CATHETER, STEROID N/A 05/05/2019 Performed by Dave Garcia MD at [facility] INJECTION CAUDAL EPIDURAL WITH CATHETER, STEROID N/A 08/12/2018 Performed by Dave Garcia MD at [facility] INJECTION CAUDAL EPIDURAL WITH CATHETER, STEROID 1 of 2 N/A 01/28/2018 Performed by Dave Garcia MD at [facility] INJECTION CAUDAL EPIDURAL WITH CATHETER, STEROID 2 of 2 N/A 02/11/2018 Performed by Dave Garcia MD at [facility] SPINE TRANSFORAMINAL Left L 1,2 Nroot Left 01/24/2021 Performed by Dave Garcia MD at [facility] SPINE TRANSFORAMINAL: left L 1,2 nroot Left 04/17/2022 Performed by Dave Garcia MD at [facility] SPINE TRANSFORAMINAL: right L 1,2 nroot Right 04/16/2023 Performed by Dave Garcia MD at [facility] LAMINECTOMY LUMBAR SINGLE LEVEL / L1-L2 N/A [...] record of the patient encounter. Inadvertent computerized fence erector errors related to syntax, spelling, homophones, and/or inaudibility may be present. DI Cha 02/10/24 1224 documented in this encounter [employer] [facility] 02-10-2024 Deann Hylton 02/10/2024 10:30 AM EDT Patient seen today by Astrid Patient to follow up PRN KM documented in this encounter [facility] 02-03-2024 Note Chief Complaint consultation for [...] (less than 10 (more content not included)... [facility] Comment on above: Result Comment: Elec tronically Signed By: ROSENDO OROURKE, Michel Marks.stoney\Date and Time Signed: 02/03/24 15:00 EDT 01-20-2024 History of Presen t illness Narrative [facility] [address] [place] [address] Patient: Celestino Ziegler Sex: male : 1970 Age: 53 y.o. PCP: DONNA HERRERA MD 01/20/2024 Celestino Ziegler is here for a(n) follow up after referral to [facility] and patient had a laminectomy [...] Jr Christian Estrada DO at [facility] ARTHROSCOPY REPAIR ROTATOR CUFF SHOULDER Left 06/07/2018 Performed by Jr Christian Estrada DO at [facility] ARTHROSCOPY SHOULDER Left 06/07/2018 Performed by Jr Christian Estrada DO at [facility] INJECTION BLOCK SACROILIAC JOINT Bilateral 06/04/2023 Performed by Dave Garcia MD at [facility] INJECTION BLOCK SACROILIAC JOINT Bilateral 03/19/2023 Performed by Dave Garcia MD at [facility] INJECTION BLOCK SACROILIAC JOINT Bilateral 01/15/2023 Performed by Dave Garcia MD at [facility] INJECTION BLOCK SACROILIAC JOINT Bilateral 09/04/2022 Performed by Dave Garcia MD at [facility] INJECTION BLOCK SACROILIAC JOINT Right 05/22/2022 Performed by Dave Garcia MD at [facility] INJECTION BLOCK SACROILIAC JOINT Bilateral 02/20/2022 Performed by Dave Garcia MD at [facility] INJECTION BLOCK SACROILIAC JOINT Bilateral 10/20/2021 Performed by Dave Garcia MD at [facility] INJECTION BLOCK SACROILIAC JOINT Bilateral 12/13/2020 Performed by Dave Garcia MD at [facility] INJECTION BURSA LARGE JOINT Right hip intra-articular Right 02/21/2021 Performed by Dave Garcia MD at [facility] INJECTION BURSA LARGE JOINT: right hip Right 03/27/2022 Performed by Dave Garcia MD at [facility] INJECTION CAUDAL EPIDURAL WITH CATHETER, STEROID N/A 02/23/2020 Performed by Dave Garcia MD at [facility] INJECTION CAUDAL EPIDURAL WITH CATHETER, STEROID N/A 01/15/2020 Performed by Dave Garcia MD at [facility] INJECTION CAUDAL EPIDURAL WITH CATHETER, STEROID N/A 06/23/2019 Performed by Dave Garcia MD at [facility] INJECTION CAUDAL EPIDURAL WITH CATHETER, STEROID N/A 05/05/2019 Performed by Dave Garcia MD at [facility] INJECTION CAUDAL EPIDURAL WITH CATHETER, STEROID N/A 08/12/2018 Performed by Dave Garcia MD at [facility] INJECTION CAUDAL EPIDURAL WITH CATHETER, STEROID 1 of 2 N/A 01/28/2018 Performed by Dave Garcia MD at [facility] INJECTION CAUDAL EPIDURAL WITH CATHETER, STEROID 2 of 2 N/A 02/11/2018 Performed by Dave Garcia MD at [facility] SPINE TRANSFORAMINAL Left L 1,2 Nroot Left 01/24/2021 Performed by Dave Garcia MD at [facility] SPINE TRANSFORAMINAL: left L 1,2 nroot Left 04/17/2022 Performed by Dave Garcia MD at [facility] SPINE TRANSFORAMINAL: right L 1,2 nroot Right 04/16/2023 Performed by Dave Garcia MD at [facility] LAMINECTOMY LUMBAR SINGLE LEVEL / L1-L2 N/A [...] Ziegler CNA 01/20/24 1110 CHIQUITA Wong 01/20/24 2473 documented in this encounter [facility] [employer] [facility] 01-20-2024 Instructions Katyh Ziegler CNA - 01/20/2024 9:45 AM EDT [...] nearest emergency room. documented in this encounter [facility] 12-20-2023 Miscellaneous Notes Celestino calls stating that [...] need to follow up sooner than his Nery appointment. Please let me know if he would like me to send the steroid chanell. Call to Celestino and MAHSA to call office. documented in this encounter [facility] 12-20-2023 Telephone encounter Note Celestino calls [...] discuss with the provider for further direction. [facility] 12-20-2023 Telephone encounter Note If he is able to take steroids, I could send an medrol chanell to try. If no relief from that, he may need to follow up sooner than his February appointment. Please let me know if he would like me to send the steroid chanell. [facility] 12-20-2023 Telephone encounter Note Call to Celestino and MAHSA to call office. [facility] [employer] [facility] 12-02-2023 History of Presen t illness Narrative Images from the original note were not included. [facility] [address] [place] [address], [address] [place] [address] * CHART NOTE ? 12/02/2023 Patient: Celestino Ziegler 1970 [id number] Nurse Practitioner: Charles Tim CNP Physician: Darrell Olsen MD, FAANS IMPRESSION / [...] with walking and twisting. Denies loss of tire vulcanizer strength, saddle anesthesia, urinary or bowel dysfunction, weakness, numbness or tingling, radicular symptoms, and loss of balance. Patient does not use an assistive device for ambulation. Patient is not diabetic and not a smoker. Hx of L2-S1 fusion with Dr. Cadet in 2019. PAST MEDICAL HISTORY Past Medical History: Diagnosis Date Alcoholism ([facility]) Anemia Asthma Back pain Chronic pain [...] Performed by Jr Christian Estrada DO at [facility] ARTHROSCOPY REPAIR ROTATOR CUFF SHOULDER Left 06/07/2018 Performed by Jr Christian Estrada DO at [facility] ARTHROSCOPY SHOULDER Left 06/07/2018 Performed by Jr Christian Estrada DO at [facility] INJECTION BLOCK SACROILIAC JOINT Bilateral 06/04/2023 Performed by Dave Garcia MD at [facility] INJECTION BLOCK SACROILIAC JOINT Bilateral 03/19/2023 Performed by Dave Garcia MD at [facility] INJECTION BLOCK SACROILIAC JOINT Bilateral 01/15/2023 Performed by Dave Garcia MD at [facility] INJECTION BLOCK SACROILIAC JOINT Bilateral 09/04/2022 Performed by Dave Garcia MD at [facility] INJECTION BLOCK SACROILIAC JOINT Right 05/22/2022 Performed by Dave Garcia MD at [facility] INJECTION BLOCK SACROILIAC JOINT Bilateral 02/20/2022 Performed by Dave Garcia MD at [facility] INJECTION BLOCK SACROILIAC JOINT Bilateral 10/20/2021 Performed by Dave Garcia MD at [facility] INJECTION BLOCK SACROILIAC JOINT Bilateral 12/13/2020 Performed by Dave Garcia MD at [facility] INJECTION BURSA LARGE JOINT Right hip intra-articular Right 02/21/2021 Performed by Dave Garcia MD at [facility] INJECTION BURSA LARGE JOINT: right hip Right 03/27/2022 Performed by Dave Garcia MD at [facility] INJECTION CAUDAL EPIDURAL WITH CATHETER, STEROID N/A 02/23/2020 Performed by Dave Garcia MD at [facility] INJECTION CAUDAL EPIDURAL WITH CATHETER, STEROID N/A 01/15/2020 Performed by Dave Garcia MD at [facility] INJECTION CAUDAL EPIDURAL WITH CATHETER, STEROID N/A 06/23/2019 Performed by Dave Garcia MD at [facility] INJECTION CAUDAL EPIDURAL WITH CATHETER, STEROID N/A 05/05/2019 Performed by Dave Garcia MD at [facility] INJECTION CAUDAL EPIDURAL WITH CATHETER, STEROID N/A 08/12/2018 Performed by Dave Garcia MD at [facility] INJECTION CAUDAL EPIDURAL WITH CATHETER, STEROID 1 of 2 N/A 01/28/2018 Performed by Dave Garcia MD at [facility] INJECTION CAUDAL EPIDURAL WITH CATHETER, STEROID 2 of 2 N/A 02/11/2018 Performed by Dave Garcia MD at [facility] INJECTION SPINE TRANSFORAMINAL Left L 1,2 Nroot Left 01/24/2021 Performed by Dave Garcia MD at [facility] INJECTION SPINE TRANSFORAMINAL: left L 1,2 nroot Left 04/17/2022 Performed by Dave Garcia MD at [facility] INJECTION SPINE TRANSFORAMINAL: right L 1,2 nroot Right 04/16/2023 Performed by Dave Garcia MD at [facility] LAMINECTOMY LUMBAR SINGLE LEVEL / L1-L2 N/A 10/22/2023 Performed by Darrell Olsen MD at [facility] LUMBAR FUSION 2019 L2-S1 REFRACTIVE SURGERY Bilateral SOCIAL HISTORY Social [...] record of the patient encounter. Inadvertent computerized fence erector errors related to syntax, spelling, homophones, and/or inaudibility may be present. DI Cha 12/02/23 1641 documented in this encounter [facility] 12-02-2023 Instructions VIGNESH Hoover - 12/02/2023 3:00 PM EDT Patient was seen today by DI Resendiz Given medrol pack Aquatic therapy referral Patient was scheduled for a follow up in 3 months. JA documented in this encounter [facility] 11-26-2023 Miscellaneous Notes Images from the [...] are contraindicated at this point post -op. [facility] spoke with Radha who states patient had been informed NSAIDS could be used beginning 7 days post-op. New prescription for diclofenac is pended for review and signature if you agree. documented in this encounter [facility] 11-26-2023 Telephone encounter Note Images from [...] are contraindicated at this point post -op. [facility] spoke with Radha who states patient had been informed NSAIDS could be used beginning 7 days post-op. New prescription for diclofenac is pended for review and signature if you agree. [facility] 11-26-2023 Miscellaneous Notes Patient called for refill of diclofenac 75 mg. Noted he had a new prescription sent 09/16/23 for Diclofenac 75 mg BID with 5 refills. Left message for pt. He reports the pharmacy told him it was dc'd?? documented in this encounter [facility] 11-26-2023 Telephone encounter Note Patient called for refill of diclofenac 75 mg. Noted he had a new prescription sent 09/16/23 for Diclofenac 75 mg BID with 5 refills. Left message for pt. He reports the pharmacy told him it was dc'd?? [facility] 11-04-2023 History of Presen t illness Narrative Images from the original note were not included. [facility] [address] [place] [address], [address] [place] [address] * CHART NOTE ? 11/10/2023 Patient: Celestino Beach Anabela 1970 [id number] Physician: Darrell Olsen MD CHIEF COMPLAINT Post-op HISTORY OF PRESENT ILLNESS 53 y.o. male presents to the office today as a post-op patient S/P L1-2 laminectomy performed on 10-22-2023. Patient advises that he has been doing very well and is no longer having any of his pre-operative symptoms like the back or radicular pain. Denies loss of tire vulcanizer strength, saddle anesthesia, urinary or bowel dysfunction, [...] record of the patient encounter. Inadvertent computerized fence erector errors related to syntax, spelling, homophones, and/or inaudibility may be present. Scribe Statement: Scribed for and in the presence of Darrell Olsen MD by Dg Sandoval. Provider Statement: I, Darrell Olsen MD personally performed the services described in the documentation, as scribed by Dg Sandoval in my presence, and it is both accurate and complete documented in this encounter [facility] [employer] [facility] 11-04-2023 Instructions Raven Gustafson, Vlad - 11/04/2023 10:10 AM EDT Patient was seen today by Dr. Olsen. Will follow up as needed JA documented in this encounter [facility] 10-28-2023 History and physi brigido note Note Date/Time October 28, 2023 10:24am [facility] [address] [place] [address] Physiatry (Rehab) H&P Signed Patient: Celestino Ziegler MR#: [id number] : 1970 Acct:[id number] Age/Sex: 53 / M Adm Date: 4 Loc: Room: [address] [place] [address] Type: ADM IN Attending Dr: Qasim Mancilla MD Copies to: MD Donna Mcmanus MD~ Date of Service: 10/28/2023 HPI History of Present Illness: Mr. Ziegler is a 53 year old male with past medical history of lumbar spinal stenosis with neurogenic claudication who presented to [facility] on 10/21 for elective L1-L2 decompressive [...] independent. Patient hopeful to go home soon. [facility] Medical History (Updated 10/28/23 @ 12:47 [...] mcg/actuation aerosol inhaler (ProAir HFA) 2 inh [id number] PRN shortness of breath or wheezing 10/27/23 [...] Bisacodyl (Bisacodyl 10 Mg Supp.Rect) 10 mg HI DAILY PRN PRN Reason: Constipation Stop: 10/26/24 [...] Enema 283 Mg/5 Ml Enema) 283 mg HI DAILY PRN PRN Reason: Constipation Stop: 10/26/24 14:24 Famotidine (Famotidine 20 Mg Tablet) 20 mg PO BID [facility] Stop: 10/26/24 20:59 Last Admin: 10/28/23 09:25 Dose: 20 mg Fluoxetine HCl (Fluoxetine 20 Mg Capsule) 40 mg PO QAM [facility] Stop: 10/27/24 08:59 Last Admin: 10/28/23 09:25 Dose: 40 mg Gabapentin (Gabapentin 800 Mg Tablet) 800 mg PO TID [facility] Stop: 10/26/24 21:59 Last Admin: 10/28/23 09:25 Dose: 800 mg Heparin Sodium (Porcine) (Heparin 5,000 Unit/Ml Vial) 5,000 unit SUBCUT Q8HR [facility] Stop: 10/28/24 21:59 Lactulose (Lactulose 20 Gm/30 Ml Udc) 30 gm PO DAILY PRN PRN Reason: Constipation Stop: 10/26/24 14:24 Liothyronine Sodium (Liothyronine 5 Mcg Tablet) 5 mcg PO DAILY [facility] Stop: 10/27/24 08:59 Last Admin: 10/28/23 09:25 Dose: 5 mcg Loratadine (Loratadine 10 Mg Tablet) 10 mg PO DAILY [facility] Stop: 10/27/24 08:59 Last Admin: 10/28/23 09:25 Dose: 10 mg Multivitamins (Multivitamin 1 Tab Tablet) 1 tab PO DAILY@1200 [facility] Stop: 10/27/24 11:59 Oxycodone HCl (Oxycodone [...] % (Auto) 61.0 Lymph % (Auto) 28.7 [place] % (Auto) 9.6 Eos % (Auto) 0.4 Baso % (Auto) 0.3 Nucleat RBC Rel Count 0.1 Neut # (Auto) 4.5 Lymph # (Auto) 2.1 [place] # (Auto) 0.7 Eos # (Auto) 0.0 [...] 24 hour daily monitoring and intervention from Public Health Assistant as well as other consulting physicians including internal medicine as well as 24 hour daily timber mill worker nursing - for medical safe / optimal [...] a 53-year-old male with who presents to [facility] due to functional decline in [...] equipment to enhance the patient's a functional gnosticism -Encourage deep breathing exercises and incentive spirometry [...] chart, including current orders, allied health and applications sales consultant notes, labs/imaging and performed butt elements of exam and I formulated the plan of care and facilitated the medical decision making. I completed a substantive portion of this encounter, the medical decision makingportion of this note in its entirety, including Allied health note review, nursing note review, applications sales consultant note review, discussion with nursing and case management, and more than 50% of my time was spent on counseling and coordination of care, time spent 75 minutes Documented By: Qasim Mancilla MD [id number] Signed By: <Electronically signed by Qasim Mancilla MD> 10/28/23 0573 [facility] Work Phone: 1(145) 524-456002-23-2024 Miscellaneous Notes* Telephone Encounter - Radha Bustillos RN - 10/08/2023 4:01 PM EST PTT of 40 called from lab. 10/22/23 LAMINECTOMY LUMBAR SINGLE LEVEL / L1-L2 [facility] Note* Telephone Encounter - Radha Bustillos RN - 10/08/2023 4:01 PM EST PTT of 40 called from lab. 10/22/23 LAMINECTOMY LUMBAR SINGLE LEVEL / L1-L2 [facility]-23-2024 History and physical note* Beata Lee Eulalia, MANAGEMENT DEPARTMENT CHAIR-CAREER PLACEMENT SERVICES COUNSELOR - 10/08/2023 1:15 PM EST PRE-ADMISSION TESTING HISTORY AND PHYSICAL EXAM DATE: 10/08/23 PCP: DONNA HERRERA MD CHIEF COMPLAINT: Spinal stenosis of lumbar region with neurogenic claudication HISTORY OF PRESENT ILLNESS: Celestino Ziegler, a 53 y.o. White or male, presents to [facility] for a pre-surgical H&P. The patient has been diagnosed with spinal stenosis of lumbar region with neurogenic claudication. He reports he has dealt with back pain since he was young, but it has gradually gotten worse. 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 He rates his pain [...] HISTORY: Past Medical History: Diagnosis Date Alcoholism ([facility]) Anemia Asthma Back pain Chronic pain [...] Jr Christian Estrada DO at [facility] ARTHROSCOPY REPAIR ROTATOR CUFF SHOULDER Left 06/07/2018 Performed by Jr Christian Estrada DO at [facility] ARTHROSCOPY SHOULDER Left 06/07/2018 Performed by Jr Christian Estrada DO at [facility] INJECTION BLOCK SACROILIAC JOINT Bilateral 06/04/2023 Performed by Dave Garcia MD at [facility] INJECTION BLOCK SACROILIAC JOINT Bilateral 03/19/2023 Performed by Dave Garcia MD at [facility] INJECTION BLOCK SACROILIAC JOINT Bilateral 01/15/2023 Performed by Dave Garcia MD at [facility] INJECTION BLOCK SACROILIAC JOINT Bilateral 09/04/2022 Performed by Dave Garcia MD at [facility] INJECTION BLOCK SACROILIAC JOINT Right 05/22/2022 Performed by Dave Garcia MD at [facility] INJECTION BLOCK SACROILIAC JOINT Bilateral 02/20/2022 Performed by Dave Garcia MD at [facility] INJECTION BLOCK SACROILIAC JOINT Bilateral 10/20/2021 Performed by Dave Garcia MD at [facility] INJECTION BLOCK SACROILIAC JOINT Bilateral 12/13/2020 Performed by Dave Garcia MD at [facility] INJECTION BURSA LARGE JOINT Right hip intra-articular Right 02/21/2021 Performed by Dave Garcia MD at [facility] BURSA LARGE JOINT: right hip Right 03/27/2022 Performed by Dave Garcia MD at [facility] INJECTION CAUDAL EPIDURAL WITH CATHETER, STEROID N/A 02/23/2020 Performed by Dave Garcia MD at [facility] INJECTION CAUDAL EPIDURAL WITH CATHETER, STEROID N/A 01/15/2020 Performed by Dave Garcia MD at [facility] INJECTION CAUDAL EPIDURAL WITH CATHETER, STEROID N/A 06/23/2019 Performed by Dave Garcia MD at [facility] INJECTION CAUDAL EPIDURAL WITH CATHETER, STEROID N/A 05/05/2019 Performed by Dave Garcia MD at [facility] INJECTION CAUDAL EPIDURAL WITH CATHETER, STEROID N/A 08/12/2018 Performed by Dave Garcia MD at [facility] INJECTION CAUDAL EPIDURAL WITH CATHETER, STEROID 1 of 2 N/A 01/28/2018 Performed by Dave Garcia MD at [facility] INJECTION CAUDAL EPIDURAL WITH CATHETER, STEROID 2 of 2 N/A 02/11/2018 Performed by Dave Garcia MD at [facility] INJECTION SPINE TRANSFORAMINAL Left L 1,2 Nroot Left 01/24/2021 Performed by Dave Garcia MD at [facility] INJECTION SPINE TRANSFORAMINAL: left L 1,2 nroot Left 04/17/2022 Performed by Dave Garcia MD at [facility] INJECTION SPINE TRANSFORAMINAL: right L 1,2 nroot Right 04/16/2023 Performed by Dave Garcia MD at [facility] LUMBAR FUSION 2019 L2-S1 REFRACTIVE [...] the most recent lab values available in [facility] at the time ofthe office visit and additional labs may have been drawn since that time. ASSESSMENT / DIAGNOSIS: Spinal stenosis of lumbar region with neurogenic claudication PLAN: Celestino Ziegler is scheduled for Laminectomy Lumbar Single Level / L1-L2 with Dr. Olsen on 10/22/23. DI Singletary 10/08/23 1426 [employer] Work Phone: [phone] 613-168702-23-2024 History and physical note* DI Singletary - 10/08/2023 1:15 PM EST PRE-ADMISSION TESTING HISTORY AND PHYSICAL EXAM DATE: 10/08/23 PCP: DONNA HERRERA MD CHIEF COMPLAINT: Spinal stenosis of lumbar region with neurogenic claudication HISTORY OF PRESENT ILLNESS: Celestino Ziegler, a 53 y.o. White or male, presents to [facility] for a pre-surgical H&P. The patient has been diagnosed with spinal stenosis of lumbar region with neurogenic claudication. He reports he has dealt with back pain since he was young, but it has gradually gotten worse. 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 He rates his pain [...] HISTORY: Past Medical History: Diagnosis Date Alcoholism ([facility]) Anemia Asthma Back pain Chronic pain [...] Jr Christian Estrada DO at [facility] ARTHROSCOPY REPAIR ROTATOR CUFF SHOULDER Left 06/07/2018 Performed by Jr Christian Estrada DO at [facility] ARTHROSCOPY SHOULDER Left 06/07/2018 Performed by Jr Christian Estrada DO at [facility] INJECTION BLOCK SACROILIAC JOINT Bilateral 06/04/2023 Performed by Dave Garcia MD at [facility] INJECTION BLOCK SACROILIAC JOINT Bilateral 03/19/2023 Performed by Dave Garcia MD at [facility] INJECTION BLOCK SACROILIAC JOINT Bilateral 01/15/2023 Performed by Dave Garcia MD at [facility] INJECTION BLOCK SACROILIAC JOINT Bilateral 09/04/2022 Performed by Dave Garcia MD at [facility] INJECTION BLOCK SACROILIAC JOINT Right 05/22/2022 Performed by Dave Garcia MD at [facility] INJECTION BLOCK SACROILIAC JOINT Bilateral 02/20/2022 Performed by Dave Garcia MD at [facility] INJECTION BLOCK SACROILIAC JOINT Bilateral 10/20/2021 Performed by Dave Garcia MD at [facility] INJECTION BLOCK SACROILIAC JOINT Bilateral 12/13/2020 Performed by Dave Garcia MD at [facility] INJECTION BURSA LARGE JOINT Right hip intra-articular Right 02/21/2021 Performed by Dave Garcia MD at [facility] INJECTION BURSA LARGE JOINT: right hip Right 03/27/2022 Performed by Dave Garcia MD at [facility] INJECTION CAUDAL EPIDURAL WITH CATHETER, STEROID N/A 02/23/2020 Performed by Dave Garcia MD at [facility] INJECTION CAUDAL EPIDURAL WITH CATHETER, STEROID N/A 01/15/2020 Performed by Dave Garcia MD at [facility] INJECTION CAUDAL EPIDURAL WITH CATHETER, STEROID N/A 06/23/2019 Performed by Dave Garcia MD at [facility] INJECTION CAUDAL EPIDURAL WITH CATHETER, STEROID N/A 05/05/2019 Performed by Dave Garcia MD at [facility] INJECTION CAUDAL EPIDURAL WITH CATHETER, STEROID N/A 08/12/2018 Performed by Dave Garcia MD at [facility] INJECTION CAUDAL EPIDURAL WITH CATHETER, STEROID 1 of 2 N/A 01/28/2018 Performed by Dave Garcia MD at [facility] INJECTION CAUDAL EPIDURAL WITH CATHETER, STEROID 2 of 2 N/A 02/11/2018 Performed by Dave Garcia MD at [facility] INJECTION SPINE TRANSFORAMINAL Left L 1,2 Nroot Left 01/24/2021 Performed by Dave Garcia MD at [facility] INJECTION SPINE TRANSFORAMINAL: left L 1,2 nroot Left 04/17/2022 Performed by Dave Garcia MD at [facility] INJECTION SPINE TRANSFORAMINAL: right L 1,2 nroot Right 04/16/2023 Performed by Dave Garcia MD at [facility] LUMBAR FUSION 2019 L2-S1 REFRACTIVE [...] the most recent lab values available in [facility] at the time ofthe office visit and additional labs may have been drawn since that time. ASSESSMENT / DIAGNOSIS: Spinal stenosis of lumbar region with neurogenic claudication PLAN: Celestino Ziegler is scheduled for Laminectomy Lumbar Single Level / L1-L2 with Dr. Olsen on 10/22/23. DI Singletary 10/08/23 1426 documented in this encounterHolden Memorial HospitalCDSM Interactive Solutions [id number] Instructions* Patient Instructions* Katina Mckeon RN - 10/08/2023 1:15 PM EST Your surgery/procedure is scheduled at [facility] on 10/22/2023 at 0730 Arrival Time 0530 [facility] Address: [address] [place] [address] in [address]ing lot [address] on [facility]. Report to the Entrance B. Check in at the information desk the surgery. The waiting room located on the second floor. If you have any questions prior to surgery, please call Pre-Admission Clinic at [phone] between 7:30 am and 4:30 pm Wednesday through Wednesday. If you have questions the morning of surgery, please call the Pre-op Department at [phone]. Notify your SURGEON if you develop any [...] would like to schedule therapy at a [facility] facility, please call [phone] ([phone]). Do not use lotions, creams, powders, perfume, [...] RIGHTS AND RESPONSIBILITIES As a patient at [facility], you have the right to: Receive medical care and be informed of who is taking care of you Be treated with dignity and respect Have a family member/patient intake representative of choice and your physician notified of your admission Receive information and actively participate in decisions about your care and treatment Refuse care, treatment and services Decide who may provide your support and speak for you Access jehovah's witness and spiritual services Participate in ethical issues [...] of hospital charges and payment methods Patient/patient patient intake representative responsibilities are to: Provide information about [...] surgery in clean clothes. documented in this [facility]24 NoteXR CHEST 2 VWS CLINICAL INFORMATION: . Pre-op testing. TECHNIQUE/PROCEDURE: Chest radiographs, two views. COMPARISON: Prior chest radiographs, most recently 05/24/2018 FINDINGS: No tracheal deviation. Cardiac and mediastinal contours are normal. No consolidation, pneumothorax or pleural effusion. No free air. IMPRESSION: * No radiographic evidence of acute cardiopulmonary disease. Finalized by Brenden Zapien MD on 09/23/2023 4:11 [facility] 09-23-2023 NoteCLINICAL INFORMATION: . Pre-op testing. TECHNIQUE/PROCEDURE: Chest radiographs, two views. COMPARISON: Prior chest radiographs, most recently 05/24/2018 FINDINGS: No tracheal deviation. Cardiac and mediastinal contours are normal. No consolidation, pneumothorax or pleural effusion. No free air. IMPRESSION: * No radiographic evidence of acute cardiopulmonary disease. Finalized by Brenden Zapien MD on 09/23/2023 4:11 [id number] History of Present illness Narrative* Charles Tim APRN-CAREER PLACEMENT SERVICES COUNSELOR - 09/23/2023 11:50 AM EST Images from the original note were not included. [facility] [address] [place] [address], [address] [place] [address] * CHART NOTE ? 09/23/2023 Patient: Celestino Ziegler 1970 [id number] Physician: Darrell Olsen MD CHIEF COMPLAINT Low [...] to the patient's understanding. Denies loss of tire vulcanizer strength, saddle anesthesia, urinary or bowel dysfunction, [...] Right achilles: 2+ Left achilles: 2+ Right tire vulcanizer: 2+ Left tire vulcanizer: 2+ Right Dumont: absent Left Dumont: absent [...] record of the patient encounter. Inadvertent computerized fence erector errors related to syntax, spelling, homophones, and/or inaudibility may be present. DI Cha 09/23/23 1548 documented in this encounterMetroHealth Parma Medical CenterShoprocket [id number] Instructions* Patient Instructions* Raven Gustafson, [facility] - 09/23/2023 11:50 AM EST Patient was seen by Dr. Olsen and DI Resendiz Patient was offered surgery for L1-L2 Laminectomy with Fusion. Patient will meet with Dr. Pretty Maradiaga's recruiting scheduler, to schedule surgery. Patient was given an order for a chest x ray. JA documented in this encounterMansfield Hospital02-01-2024 Miscellaneous Notes* Telephone Encounter - Kathy Ziegler CNA - 09/16/2023 2:24 PM EST Last OV: 08/19/23 Next OV: 09/23/23 With Pretty VALERIO appropriate: yes Last UDS: na [facility]acy[facility] documented in this encounterMansfield Hospital02-01-2024 Telephone encounter Note* Telephone Encounter - Kathy Ziegler CNA - 09/16/2023 2:24 PM EST Last OV: 08/19/23 Next OV: 09/23/23 With Pretty VALERIO appropriate: yes Last UDS: na [facility] History of Present illness Narrative* DI Cha - 09/02/2023 10:15 AM EST Images from the original note were not included. [facility] [address] [place] [address], [address] [place] [address] * CHART NOTE ? 09/02/2023 Patient: Celestino Ziegler 1970 [id number] Nurse Practitioner: Charles Tim CNP Physician: Darrell [...] good candidate for that. Denies loss of tire vulcanizer strength, saddle anesthesia, urinary or bowel dysfunction, [...] HISTORY Past Medical History: Diagnosis Date Alcoholism ([facility]) Anxiety Back pain Chronic pain disorder Cough Depression Environmental allergies Hypertension history of this, not currently treated Low back pain Neck pain Visual impairment contacts PAST SURGICAL HISTORY Past Surgical History: Procedure Laterality Date ARTHROSCOPY REPAIR LESION SUPERIOR LABRUM EXTENDING FROM ANTERIOR TO POSTERIOR (SLAP) SHOULDER Left06/07/2018 Performed by Jr Christian Estrada DO at [facility] ARTHROSCOPY REPAIR ROTATOR CUFF SHOULDER Left 06/07/2018 Performed by Jr Christian Estrada DO at [facility] ARTHROSCOPY SHOULDER Left 06/07/2018 Performed by Jr Christian Estrada DO at [facility] INJECTION BLOCK SACROILIAC JOINT Bilateral 06/04/2023 Performed by Dave Garcia MD at [facility] INJECTION BLOCK SACROILIAC JOINT Bilateral 03/19/2023 Performed by Dave Gacria MD at [facility] INJECTION BLOCK SACROILIAC JOINT Bilateral 01/15/2023 Performed by Dave Garcia MD at [facility] INJECTION BLOCK SACROILIAC JOINT Bilateral 09/04/2022 Performed by Dave Garcia MD at [facility] INJECTION BLOCK SACROILIAC JOINT Right 05/22/2022 Performed by Dave Garcia MD at [facility] INJECTION BLOCK SACROILIAC JOINT Bilateral 02/20/2022 Performed by Dave Garcia MD at [facility] INJECTION BLOCK SACROILIAC JOINT Bilateral 10/20/2021 Performed by Dave Garcia MD at [facility] INJECTION BLOCK SACROILIAC JOINT Bilateral 12/13/2020 Performed by Dave Garcia MD at [facility] INJECTION BURSA LARGE JOINT Right hip intra-articular Right 02/21/2021 Performed by Dave Garcia MD at [facility] INJECTION BURSA LARGE JOINT: right hip Right 03/27/2022 Performed by Dave Garcia MD at [facility] INJECTION CAUDAL EPIDURAL WITH CATHETER, STEROID N/A 02/23/2020 Performed by Dave Garcia MD at [facility] INJECTION CAUDAL EPIDURAL WITH CATHETER, STEROID N/A 01/15/2020 Performed by Dave Garcia MD at [facility] INJECTION CAUDAL EPIDURAL WITH CATHETER, STEROID N/A 06/23/2019 Performed by Dave Garcia MD at [facility] INJECTION CAUDAL EPIDURAL WITH CATHETER, STEROID N/A 05/05/2019 Performed by Dave Garcia MD at [facility] INJECTION CAUDAL EPIDURAL WITH CATHETER, STEROID N/A 08/12/2018 Performed by Dave Garcia MD at [facility] INJECTION CAUDAL EPIDURAL WITH CATHETER, STEROID 1 of 2 N/A 01/28/2018 Performed by Dave Garcia MD at [facility] INJECTION CAUDAL EPIDURAL WITH CATHETER, STEROID 2 of 2 N/A 02/11/2018 Performed by Dave Garcia MD at [facility] INJECTION SPINE TRANSFORAMINAL Left L 1,2 Nroot Left 01/24/2021 Performed by Dave Garcia MD at [facility] SPINE TRANSFORAMINAL: left L 1,2 nroot Left 04/17/2022 Performed by Dave Garcia MD at [facility] SPINE TRANSFORAMINAL: right L 1,2 nroot Right 04/16/2023 Performed by Dave Garcia MD at [facility] REFRACTIVE SURGERY Bilateral FAMILY HISTORY Family History [...] Right achilles 2+ Left achilles 2+ Right tire vulcanizer 2+ Left tire vulcanizer 2+ Right Dumont reflex absent and left [...] after CT. Electronically Signed By: Charles Tim CAREER PLACEMENT SERVICES COUNSELOR This note was created with the assistance of a speech recognition program with the goal of generating a timely record of the patient encounter. Inadvertent computerized fence erector errors related to syntax, spelling, homophones, and/or inaudibility may be present. DI Cha 09/02/23 1040 documented in this encounterMansfield Hospital01-18-2024 Instructions* Patient Instructions* VIGNESH Hoover - 09/02/2023 10:15 AM EST Patient was seen by DI Resendiz Patient was given an order for CT Lumbar without contrast. Lumbar Spine Flex/Ext x ray. Patient will follow up when CT has been scheduled. JA documented in this encounterMansfield Hospital01-04-2024 History of Present illness Narrative* CHIQUITA Wong - 08/19/2023 1:00 PM EST [facility] [address] [place] [address] Patient: Celestino Ziegler Sex: male : 1970 [...] (SLAP) SHOULDER Left06/07/2018 Performed by Jr Christian Estrada, DO at [facility] ARTHROSCOPY REPAIR ROTATOR CUFF SHOULDER Left 06/07/2018 Performed by Jr Christian Estrada DO at [facility] ARTHROSCOPY SHOULDER Left 06/07/2018 Performed by Jr Christian Estrada DO at [facility] INJECTION BLOCK SACROILIAC JOINT Bilateral 06/04/2023 Performed by Dave Garcia MD at [facility] INJECTION BLOCK SACROILIAC JOINT Bilateral 03/19/2023 Performed by Dave Garcia MD at [facility] INJECTION BLOCK SACROILIAC JOINT Bilateral 01/15/2023 Performed by Dave Garcia MD at [facility] INJECTION BLOCK SACROILIAC JOINT Bilateral 09/04/2022 Performed by Dave Garcia MD at [facility] INJECTION BLOCK SACROILIAC JOINT Right 05/22/2022 Performed by Dave Garcia MD at [facility] INJECTION BLOCK SACROILIAC JOINT Bilateral 02/20/2022 Performed by Dave Garcia MD at [facility] INJECTION BLOCK SACROILIAC JOINT Bilateral 10/20/2021 Performed by Dave Garcia MD at [facility] INJECTION BLOCK SACROILIAC JOINT Bilateral 12/13/2020 Performed by Dave Garcia MD at [facility] INJECTION BURSA LARGE JOINT Right hip intra-articular Right 02/21/2021 Performed by Dave Garcia MD at [facility] INJECTION BURSA LARGE JOINT: right hip Right 03/27/2022 Performed by Dave Garcia MD at [facility] INJECTION CAUDAL EPIDURAL WITH CATHETER, STEROID N/A 02/23/2020 Performed by Dave Garcia MD at [facility] INJECTION CAUDAL EPIDURAL WITH CATHETER, STEROID N/A 01/15/2020 Performed by Dave Garcia MD at [facility] INJECTION CAUDAL EPIDURAL WITH CATHETER, STEROID N/A 06/23/2019 Performed by Dave Garcia MD at [facility] INJECTION CAUDAL EPIDURAL WITH CATHETER, STEROID N/A 05/05/2019 Performed by Dave Garcia MD at [facility] INJECTION CAUDAL EPIDURAL WITH CATHETER, STEROID N/A 08/12/2018 Performed by Dave Garcia MD at [facility] INJECTION CAUDAL EPIDURAL WITH CATHETER, STEROID 1 of 2 N/A 01/28/2018 Performed by Dave Garcia MD at [facility] INJECTION CAUDAL EPIDURAL WITH CATHETER, STEROID 2 of 2 N/A 02/11/2018 Performed by Dave Garcia MD at [facility] INJECTION SPINE TRANSFORAMINAL Left L 1,2 Nroot Left 01/24/2021 Performed by Dave Garcia MD at [facility] INJECTION SPINE TRANSFORAMINAL: left L 1,2 nroot Left 04/17/2022 Performed by Dave Garcia MD at [facility] INJECTION SPINE TRANSFORAMINAL: right L 1,2 nroot Right 04/16/2023 Performed by Dave Garcia MD at [facility] REFRACTIVE SURGERY Bilateral No Known Allergies Family [...] CHIQUITA Wong 08/24/23 0902 documented in this encounterMansfield Hospital10-10-2023 Evaluation note* Encounter Date Diagnosis Assessment [...] fusion of lumbar spine (ICD-10 - Z98.1) [employer] Other 01-31-2023 Evaluation note* Encounter Date Diagnosis [...] fusion of lumbar spine (ICD-10 - Z98.1) [employer] Other 12-20-2022 Evaluation note* Encounter Date Diagnosis [...] Spondylolisthesis of lumbar region (ICD-10 - M43.16) [employer] Other 12-21-2021 Evaluation note* Encounter Date Diagnosis [...] Jul, Other chronic pain (ICD-10 - G89.29) [employer] Other 10-23-2018 History general Narrative - Reported* Type Description Date Medical History chronic depression Medical History asthma Surgical History LT SHOULDER SCOPE PER DR ACUNA IC 06/07/18 Surgical History rotator cuff(L) Surgical History lasik Surgical History [facility] Hospitalization History See Above [employer] Other discharge summary Author Qasim Mancilla [facility] November 01, 2023 9:31am Note Date/Time October 30, 2023 10: 15am [facility] [address] [place] [address] Discharge Summary Signed Patient: Celestino Ziegelr MR#: [id number] : 1970 Acct:[id number] Age/Sex: 53 / M Adm Date: 4 Loc: Room: 2Z4465-[address]: Qasim Mancilla MD Copies to: [...] with chronic back pain. Patient went to [facility] October 21 for elective L1-2 compressive laminectomy and partial medial facetectomy with L1-2 fusion after failed conservative treatment. He was seen by therapy services and felt would benefit from ongoing therapy and subsequently transferred to the inpatient rehab unit here at [facility] October 27. Postoperatively the patient did [...] <Electronically signed by Qasim Mancilla MD> 11/01/23 1626 [facility] Work Phone: Evaluation + Plan note No data available for this section General Surgery [place] Evaluation noteNo assessment information available [facility] Work Phone: Evaluation note* Diagnosis Onset Date Resolution Status Asthma acute Depression with anxiety acut e Hypothyroid acute Impaired mobility and activities of daily living acute Lumbar spinal stenosis acute Post-operative pain acute S/P lumbar fusion acute [facility] Work Phone: Evaluation note* Diagnosis Lumbosacral spondylosis without myelopathy [facility] Diagnosis Spinal stenosis of lumbar region with neurogenic claudication- Primary Spinal stenosis of lumbar region with neurogenic claudication- Primary Spinal stenosis of lumbar region with neurogenic claudication [facility]* Diagnosis Status post lumbar laminectomy- Primary [facility]* Diagnosis Status post lumbar laminectomy- Primary [facility]* Diagnosis Spinal stenosis of lumbar region with neurogenic claudication- Primary documented in this encounter [facility]* Diagnosis Spinal stenosis of lumbar region with neurogenic claudication- Primary History of lumbar fusion Radiculopathy, lumbar region Thoracic or lumbosacral neuritis or radiculitis, unspecified Lumbar radiculopathy Thoracic or lumbosacral neuritis or radiculitis, unspecified documented in this encounter [facility]* Diagnosis Disorder of sacrum- Primary Disorders of sacrum Lumbosacral spondylosis without myelopathy Disorder of sacrum- Primary Disorders of sacrum Disorder of sacrum Disorders of sacrum documented in this encounter [facility]* Diagnosis Disorder of sacrum Disorders of sacrum documented in this encounter [facility]* Diagnosis Spinal stenosis of lumbar region with neurogenic claudication- Primary Pre-op testing Unspecified pre-operative examination Radiculopathy, lumbar region Thoracic or lumbosacral neuritis or radiculitis, unspecified Pre-op testing Unspecified pre-operative examination Spinal stenosis of lumbar region- Primary Spinal stenosis of lumbar region with neurogenic claudication documented in this encounter [facility]* Diagnosis Status post lumbar laminectomy- Primary documented in this encounter [facility]* Diagnosis Spinal stenosis of lumbar region- Primary Spinal stenosis of lumbar region with neurogenic claudication Spinal stenosis of lumbar region with neurogenic claudication [facility]* Diagnosis Disorder of sacrum- Primary Disorders of sacrum Lumbosacral spondylosis without myelopathy documented in this encounter [facility] Diagnosis Disorder of sacrum- Primary Disorders of sacrum documented in this encounter [facility]* Diagnosis Disorder of sacrum- Primary Disorders of sacrum Disorder of sacrum- Primary Disorders of sacrum Disorder of sacrum Disorders of sacrum Disorder of sacrum Disorders of sacrum documented in [facility]* Diagnosis Disorder of sacrum Disorders of sacrum Lumbosacral spondylosis without myelopathy documented in this encounter [facility]* Diagnosis Lumbosacral spondylosis without myelopathy- Primary [facility]* Diagnosis Lumbosacral spondylosis without myelopathy- Primary [facility]* Diagnosis Disorder of sacrum Disorders of sacrum documented in this encounter [facility]* Diagnosis Disorder of sacrum- Primary Disorders of sacrum Chronic pain of left ankle Lumbosacral spondylosis without myelopathy Disorder of sacrum- Primary Disorders of sacrum Chronic pain of left ankle Disorder of sacrum Disorders of sacrum documented in this encounter [facility]* Diagnosis Disc displacement, 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 documented in this encounter [facility]* Diagnosis Lumbosacral spondylosis without myelopathy- Primary documented in this encounter [facility]* Diagnosis Disorder of sacrum- Primary Disorders of sacrum Cervical spondylosis without myelopathy Disorder of sacrum- Primary Disorders of sacrum Disorder of sacrum Disorders of sacrum documented in this encounter [facility]* Diagnosis Spondylosis without myelopathy or radiculopathy, cervical region- Primary documented in this encounter [facility]* Diagnosis Spondylosis without myelopathy or radiculopathy, cervical region- Primary documented in this encounter [facility]* Diagnosis Spondylosis without myelopathy or radiculopathy, cervical region- Primary documented in this encounter [facility]* Diagnosis Spondylosis without myelopathy or radiculopathy, cervical region- Primary documented [facility] this encounter [facility]* Diagnosis Cervical disc displacement- Primary Displacement of cervical intervertebral disc without myelopathy Lumbosacral spondylosis without myelopathy documented in this encounter [facility] Discharge instructions No data available for this section General Surgery [place] InstructionsNot on filedocumented in this encounter [facility] [...] data available for this section General Surgery [place] Reason for referral (narrative)* Consultation (Routine) - Pending Review Specialty Diagnoses / Procedures Referred By Yvon dickson Referred To Contact Neurosurgery Diagnoses Spinal stenosis of lumbar region with neurogenic claudication Xu Troy PA [address] [place] [address] Darrell Olsen MD [address] [place] [phone] Referral ID Status Reason Start Date Expiration Date Visits Requested Visits Authorized [id number] Pending Review Specialty Services Required 08/24/2023 08/23/[address] [facility] Narrative* Rehabilitation - Outpatient (Routine) - Authorized Specialty Diagnoses / Procedures Referred By Yvon dickson Referred To Contact Physical Therapy Diagnoses Spondylosis without myelopathy or radiculopathy, cervical region Procedures HI PHYSICAL THERAPY EVALUATION LOW COMPLEX 20 MINS HI OFFICE/OUTPATIENT NEW HIGH MDM 60 MINUTES Xu Troy MD [address] [place] [address] Phone: tel: fax: Elham Garcia, PT Referral ID Status Reason Start Date Expiration Date V isits Requested Visits Authorized [id number] Authorized 04/27/2025 10/24/2025 99 99 [facility] Narrative* Rehabilitation - Outpatient (Routine) - Authorized Specialty Diagnoses / Procedures Referred By Contac t Referred To Contact Physical Therapy Diagnoses Spondylosis without myelopathy or radiculopathy, cervical region Procedures HI PHYSICAL THERAPY EVALUATION LOW COMPLEX 20 MINS HI OFFICE/OUTPATIENT NEW HIGH MDM 60 MINUTES Xu Troy MD [address] [place] [address] Phone: tel: fax: Elham Garcia, PT Referral ID Status Reason Start Date Expiration Date V isits Requested Visits Authorized [id number] Authorized 04/27/2025 08/15/2025 99 99 [facility] Summary Purpose Family History No Family History [...] operating room: INJECTION BLOCK SACROILIAC JOINT Xu Troy PA [address] [place] [address] Referral ID Status Reason Start Date Expiration Date V isits Requested Visits Authorized [id number] Pending Review 01/20/2024 01/19/2025 1 1 Specialty Diagnoses / Procedures Referred By Contac t Referred To Contact Radiology Diagnoses Spinal stenosis of lumbar region with neurogenic claudication History of lumbar fusion Radiculopathy, lumbar region Lumbar radiculopathy Procedures CT lumbar spine without contrast Charles TimDI [address] [place] [address] Referral ID Status Reason Start Date Expiration Date V isits Requested Visits Authorized [id number] Pending Review 09/02/2023 09/01/2024 1 1 Specialty Diagnoses / Procedures Referred By Contac t Referred To Contact Diagnoses Status post lumbar laminectomy Charles TimKYLECAREER PLACEMENT SERVICES COUNSELOR [address] [place] [address] Referral ID Status Reason Start Date Expiration Date V isits Requested Visits Authorized [id number] Pending Review 12/02/2023 06/02/2024 12 12 Reason Evaluate and Treat P T for Back and Leg Pain Diagnosis 1 Lumbar radiculopathy (M54.16) Referral Organization [facility] urosurgery Referring Provider First Name Trino Referring Provider Last Name Helio Referring Provider Specialty Neurologica l Surgery Referred Organization [facility] Referred Address ,[place], [place],[address] Referred Provider Specialty Physical The rapist Referral [...] Date Comments pain 12/20/2023 Reason Comments Consult UX UI DESIGNER lumbar Specialty Diagnoses / Procedures Referred By Contac t Referred To Contact Neurosurgery Diagnoses Spinal stenosis of lumbar region with neurogenic claudication Xu Troy, PA [address] [place] [address] Darrell Olsen MD [address] [place] [address] [address] [place] [phone] Referral ID Status Reason Start Date Expiration Date Visits Requested Visits Authorized [id number] Pending Review Specialty Services Required 08/24/2023 08/23/2024 [...] Reason Onset Date Comments Med Refill 06/07/2024 Reason Onset Date Comments Med Refill 11/30/2024 Reason Comments Back Pain Neck Pain (unrecognized sect ion and content) No Status Records FoundNo Status Records FoundNo Status Records FoundNo Status Records FoundNo Status Records FoundNo Status Records FoundNo Status Records Found INFORMATION SOURCE (unrecogn ized section and content) DATE CREATED AUTHOR 09/09/2022 [facility] DATE CREATED AUTHOR AUTHOR'S ORGANIZ ATION 10/28/2023 [facility] DATE CREATED AUTHOR AUTHOR'S ORGANIZ ATION 12/04/2023 [facility] DATE CREATED AUTHOR AUTHOR'S ORGANIZ ATION 12/24/2023 [facility] DATE CREATED AUTHOR AUTHOR'S ORGANIZ ATION 02/05/2024 Dale Hartley [facility] DATE CREATED AUTHOR AUTHOR'S ORGANIZ ATION 05/19/2025 [facility] EPIC DATE CREATED AUTHOR AUTHOR'S ORGANIZ ATION 05/22/2025 [facility] Care Teams (unrecognized sec [...] RN Other Provider Active Start : October 27, 2023 End: October 29, 2023 Jennifer Hatfield RN Other Provider Active Start: [facility] 2023 End: October 29, 2023 Perla Bunn RN Other Provider Active Start: [facility] 2023 End: October 29, 2023 Lena Tejeda [...] 27, 2023 End: October 29, 2023 Prosper Fyr MD Other Provider Active Start: October 27, [...] Emil Magana MD Other Provider Active Start: [facility] 2023 End: October 29, 2023 Tong Varma MD Other Provider Active Start: [facility] 2023 End: October 29, 2023 Rhiannon Feldman NP-C Other Provider Active St art: October 27, 2023 End: October 29, 2023 Avelina Houser APRN Other Provider Active Star t: October 27, 2023 End: October 29, 2023 Rajat Silvestre MD Other Provider Active Start: October 27, 2023 End: October 29, 2023 John Krishna MD Other Provider Active Start: [facility] 2023 End: October 29, 2023 Tod Curry MD Other Provider Active Start: [facility] 2023 End: October 29, 2023 Maximus Arce MD Other Provider Active Star t: October 27, 2023 End: October 29, 2023 Tha Otto MD Other Provider Active Start: [facility] 2023 End: October 29, 2023 Swathi Jones DO Other Provider Active Start: [facility] 2023 End: October 29, 2023 Ricky Guzman DO Other Provider Active Start : October 27, 2023 End: October 29, 2023 Juan C M Miniaci , DO Other Provider Active Sta rt: [...] Start: [facility] 2023 Alyce Mcintosh RN Other Provider Active Star t: October 28, 2023 Berkley Giron RN Other Provider Active Start : October 28, 2023 Jennifer Hatfield , CORNELL Other Provider Active Start: [facility] 2023 Perla Bunn RN Other Provider Active Start: [facility] 2023 Lena Tejeda MD Other Provider Active Start: October 28, 2023 Virgilio Ley MD Other Provider Active Start: [facility] 2023 Kathy Loya APRN Other Provider Active Start: October 28, 2023 Michelle Echols , Other Provider Active Start : October [...] Emil Magana MD Other Provider Active Start: [facility] 2023 Tong Varma MD Other Provider Active Start: [facility] 2023 Rhiannon Feldman NP-C Other Provider Active St art: October 28, 2023 Avelina Houser APRN Other Provider Active Star t: October 28, 2023 Rajat Silvestre MD Other Provider Active Start: October 28, 2023 John Krishna MD Other Provider Active Start: [facility] 2023 Tod Curry MD Other Provider Active Start: [facility] 2023 Maximus Arce MD Other Provider Active Star t: October 28, 2023 Tha Otto MD Other Provider Active Start: [facility] 2023 Swathi Jones DO Other Provider Active Start: [facility] 2023 Ricky Guzman , DO Other Provider [...] Perla Bunn RN Other Provider Active Start: [facility] 2023 End: October 29, 2023 Lena Tejeda [...] Emil Magana MD Other Provider Active Start: [facility] 2023 End: October 29, 2023 Tong Varma MD Other Provider Active Start: [facility] 2023 End: October 29, 2023 BILLY Díaz Other Provider Active St art: October 28, 2023 End: October 29, 2023 Avelina Houser APRN Other Provider Active Star t: October 28, 2023 End: October 29, 2023 Rajat Silvestre MD Other Provider Active Start: October 28, 2023 End: October 29, 2023 John Krishna MD Other Provider Active Start: [facility] 2023 End: October 29, 2023 Tod Curry MD Other Provider Active Start: [facility] 2023 End: October 29, 2023 Maximus Arce MD Other Provider Active Star t: October 28, 2023 End: October 29, 2023 Tha Otto MD Other Provider Active Start: [facility] 2023 End: October 29, 2023 Swathi Jones , Other Provider Active Start: [facility] 2023 End: October 29, 2023 Ricky Guzman [...] 2023 Qasim Mancilla MD Admit Provid er, Other Provider Active Start: October 28, 2023 Yasmeen Quinones , CORNELL Other Provider Active Star t: October 28, 2023 Flores Givens , CORNELL Other Provider Active Start : October 28, 2023 Ariela Kraft , CORNELL Other Provider Active Start: [facility] 2023 Alyce Mcintosh RN Other Provider Active Star t: October 28, 2023 Berkley Giron RN Other Provider Active Start : October 28, 2023 Jennifer Hatfield , CORNELL Other Provider Active Start: [facility] 2023 Perla Bunn RN Other Provider Active Start: [facility] 2023 Lena Tejeda MD Other Provider Active [...] Emil Magana MD Other Provider Active Start: [facility] 2023 Tong Varma MD Other Provider Active Start: [facility] 2023 Rhiannon Feldman , UX UI DESIGNER-C Other Provider Active St art: October 28, 2023 Avelina Houser APRN Other Provider Active Star t: October 28, 2023 Rajat Silvestre MD Other Provider Active Start: October 28, 2023 John Krishna MD Other Provider Active Start: [facility] 2023 Tod Curry MD Other Provider Active Start: [facility] 2023 Maximus Arce MD Other Provider Active Star t: October 28, 2023 Tha Otto MD Other Provider Active Start: [facility] 2023 Swathi Jones , Other Provider Active Start: [facility] 2023 Ricky Guzman , Other Provider Active [...] Start: [facility] 2023 Team Status: Inactive Member Role Status Dates Donna Herrera MD Primary Care Provider Active Start: December 22, 2023 End: December 22, 2023 Michel Robbins MD [facility] Attending Provider Active Start: December 22, 2023 End: December 22, 2023 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 Start Date End Date Donna Herrera MD PCP - General 05/24/18 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 Start Date End Date Donna Herrera MD PCP - General 05/24/18 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 Start Date End Date Donna Herrera MD [address] [place] [address] PCP - General 05/24/18 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 Start Date End Date Donna Herrera MD [address] [place] [id number] PCP - General 05/24/18 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 Start Date End Date Donna Herrera MD [address] [place] [phone] PCP - General 05/24/18 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 Start Date End Date Donna Herrera MD [address] [place] [id number] PCP - General 05/24/18 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 Start Date End Date Donna Herrera MD [address] [place] [address] PCP - General 05/24/18 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 Start Date End Date Donna Herrera MD [address] [place] [address] PCP - General 05/24/18 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 Start Date End Date Donna Herrera MD [address] [place] [address] PCP - General 05/24/18 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 Start Date End Date Donna Herrera MD [address] [place] [address] PCP - General 05/24/18 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 Start Date End Date Donna Herrera MD [address] [place] [address] PCP - General 05/24/18 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 Start Date End Date Donna Herrera MD [address] [place] [address] PCP - General 05/24/18 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 Start Date End Date Donna Herrera MD [address] [place] [phone] PCP - General 05/24/18 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 Start Date End Date Donna Herrera MD [address] [place] [address] PCP - General 05/24/18 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 Start Date End Date Donna Herrera MD [address] [place] [address] PCP - General 05/24/18 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 Start Date End Date Donna Herrera MD PCP - General 05/24/18 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 Start Date End Date Donna Herrera MD PCP - General 05/24/18 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 Start Date End Date Donna Herrera MD PCP - General 05/24/18 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 Start Date End Date Donna Herrera MD PCP - General 05/24/18 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 Start Date End Date Donna Herrera MD [address] [place] [address] PCP - General Family Medicine 12/28/24 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 Start Date End Date Donna Herrera MD [address] , [place] [address] PCP - General Family Medicine 12/28/24 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 Start Date End Date Donna Herrera MD [address] , [place] [address] PCP - General Family Medicine 12/28/24 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 [facility] [employer] [facility]. provides no warranty or guarantee of the accuracy or completeness of information in this document.
--- NOTE | 2025-05-25 12:35 | MR_ITS ---
[address] [address] Patient Name: CEE ZIEGLER MRN: [id number] date: 1970 Sex: M Assigned Patient Location: MRI Current Patient Location: MRI Accession/Order Number: [id number] Exam Date: 05/25/2025 12:36 Report Date: 05/25/2025 18:56 At the request of: XU PORRAS Procedure: MR cervical spine wo con EXAMINATION: MRI OF THE CERVICAL SPINE WITHOUT CONTRAST CLINICAL DATA: pain/radiculopathy TECHNIQUE: Multiecho imaging was performed in the sagittal and axial plane without contrast administration. FINDINGS: Craniocervical junction is maintained. Minimal straightening. Modic type I changes C3-C4 and C6-C7. There are degenerative changes involving the left facet joints at C3-C4 with joint effusion and corresponding marrow signal changes. Mild multilevel intervertebral space narrowing throughout the cervical spine. Prevertebral soft tissues unremarkable. There is mild increased intrasubstance signal involving the cervical cord at C3-C4 suggest myelomalacia. There is focal cord flattening at this level. No definite findings of acute cord compression. C2-3: Minor endplate osteophytosis and spurring. Uncovertebral and facet arthropathy. Moderate right moderate severe left neural foraminal narrowing. Canal patent. C3-4: Broad-based disc osteophyte complex with endplate osteophytosis and spurring with uncovertebral and facet arthropathy. Severe canal narrowing. Severe bilateral neural from narrowing. C4-C5: Minimal broad-based disc osteophyte complex. Bilateral uncovertebral and facet arthropathy, probably right-sided. There is severe central canal narrowing and severe right-sided and moderate to severe left-sided foraminal narrowing. C5-6: Broad-based prominent right-sided disc osteophyte with uncovertebral and facet arthropathy causing severe right and moderate severe left neural foraminal narrowing. C6-7: Broad-based disc osteophyte complex with endplate osteophytosis and spurring noted causing moderate severe central canal stenosis and severe foraminal narrowing. C7-T1: Broad-based disc osteophyte complex with uncovertebral spurring and facet arthropathy causing [id number] central canal and moderate bilateral neural foraminal narrowing. MR/MR cervical spine wo con IMPRESSION: Advanced multilevel degenerative changes with multilevel severe neural foraminal narrowing identified predominant right-sided effusion.. 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 IMPRESSION: NEGATIVE STUDY. Impression dictated by: Yohan Cotsello M.D. 05/25/2025 6:56 PM Dictation Location: [place] [address] Electronically authenticated by: [id number] Y Date: 05/25/2025 18:56
== END 2025-05-25 12:28 | disposition home or self-care (01) ==
LOC: MRI 12:27
PROVIDERS: PCP Family Medicine
DX: M50.20 Other cervical disc displacement, unspecified cervical region (principal); M48.02 Spinal stenosis, cervical region
CPT/HCPCS: 72141